=== PATIENT | female | born 1940 | race Caucasian/White ===

== ENCOUNTER → 2018-05-04 09:30 | Outpatient (CLI) | payer MEDICARE, SELFPAY | PROVIDERS: PCP Family Medicine; Visit Provider Orthopaedic Surgery | DX: M75.82 Other shoulder lesions, left shoulder (principal); M17.0 Bilateral primary osteoarthritis of knee | CPT/HCPCS: 20610; 99213; J1040; J7325 ==

== ENCOUNTER 2018-05-14 03:24 | Outpatient (CLI) | payer MEDICARE, SELFPAY ==
[2018-05-14 13:23] LABS: INR 2.7 (1.0-3.5); Prothrombin Time 25.3 sec (9.3-10.8)
== END 2018-05-14 03:25 ==
PROVIDERS: PCP Family Medicine; Visit Provider Family Medicine
DX: I48.0 Paroxysmal atrial fibrillation (principal); Z79.01 Long term (current) use of anticoagulants
CPT/HCPCS: 36415; 85610

== ENCOUNTER 2018-05-28 01:40 | Outpatient (CLI) | payer MEDICARE, SELFPAY | END 2018-05-28 02:00 | PROVIDERS: PCP Family Medicine; Visit Provider Family Medicine | DX: I48.0 Paroxysmal atrial fibrillation (principal); Z79.01 Long term (current) use of anticoagulants | CPT/HCPCS: 36415; 85610 ==

== ENCOUNTER 2018-05-28 13:36 | Outpatient (CLI) | payer MEDICARE, SELFPAY ==
[2018-05-28 16:14] LABS: INR 2.1 (1.0-3.5); Prothrombin Time 20.1 sec (9.3-10.8)
== END 2018-05-28 13:56 ==
PROVIDERS: PCP Family Medicine; Visit Provider Family Medicine
DX: I48.0 Paroxysmal atrial fibrillation (principal); Z79.01 Long term (current) use of anticoagulants
CPT/HCPCS: 36415; 85610

== ENCOUNTER 2018-06-11 01:04 | Outpatient (CLI) | payer MEDICARE, SELFPAY | END 2018-06-11 01:24 | PROVIDERS: PCP Family Medicine; Visit Provider Family Medicine | DX: I48.0 Paroxysmal atrial fibrillation (principal); Z79.01 Long term (current) use of anticoagulants | CPT/HCPCS: 36415; 85610 ==

== ENCOUNTER → 2018-06-21 13:44 | Outpatient (BNVA) | payer MEDICARE, SELFPAY | PROVIDERS: PCP Family Medicine; Referring Provider Family Medicine; Visit Provider Surgery | DX: K62.5 Hemorrhage of anus and rectum (principal) | CPT/HCPCS: 99213 ==

== ENCOUNTER 2018-06-24 01:07 | Outpatient (CLI) | payer MEDICARE, SELFPAY ==
--- NOTE | 2018-06-24 09:56 | DI.RAD_ITS ---
SYMPTOMS/DIAGNOSIS: LOW BACK PAIN, M54.5 LUMBAR SPINE: Comparison is made with August,. Exam is limited by the patient's body habitus. No compression fractures are seen. Degenerative disc changes are noted, greatest at L4-5 and L5-S1. The L5-S1 disc space is not well profiled. There is a suggestion of increased disc space narrowing at this level when compared with the previous exam. Facet degenerative changes are seen at the lower lumbar levels. No spondylolysis or spondylolisthesis is seen. There is calcification in the abdominal aorta. IMPRESSION: Degenerative changes, greatest at L4-5 and L5-S1.
== END 2018-06-24 01:27 ==
PROVIDERS: PCP Family Medicine; Visit Provider Family Medicine
DX: M54.5 Low back pain (principal); M51.37 Other intervertebral disc degeneration, lumbosacral region
CPT/HCPCS: 72110

== ENCOUNTER 2018-06-25 01:50 | Outpatient (CLI) | payer MEDICARE, SELFPAY ==
[2018-06-25 11:31] LABS: Prothrombin Time 18.9 sec (9.3-10.8)
== END 2018-06-25 02:10 ==
PROVIDERS: PCP Family Medicine; Visit Provider Family Medicine
DX: I48.0 Paroxysmal atrial fibrillation (principal); Z79.01 Long term (current) use of anticoagulants
CPT/HCPCS: 36415; 85610

== ENCOUNTER 2018-07-09 01:40 | Outpatient (CLI) | payer MEDICARE, SELFPAY ==
[2018-07-09 12:52] LABS: INR 2.3 (1.0-3.5); Prothrombin Time 21.8 sec (9.3-10.8)
== END 2018-07-09 02:00 ==
PROVIDERS: PCP Family Medicine; Visit Provider Family Medicine
DX: I48.0 Paroxysmal atrial fibrillation (principal); Z79.01 Long term (current) use of anticoagulants
CPT/HCPCS: 36415; 85610

== ENCOUNTER 2018-07-30 01:55 | Outpatient (CLI) | payer MEDICARE, SELFPAY ==
[2018-07-30 11:11] LABS: INR 2.2 (1.0-3.5); Prothrombin Time 20.6 sec (9.3-10.8)
== END 2018-07-30 02:15 ==
PROVIDERS: PCP Family Medicine; Visit Provider Family Medicine
DX: I48.0 Paroxysmal atrial fibrillation (principal); Z79.01 Long term (current) use of anticoagulants
CPT/HCPCS: 36415; 85610

== ENCOUNTER 2018-08-23 08:27 | Outpatient (CLI) | payer MEDICARE, SELFPAY ==
[2018-08-23 11:41] LABS: INR 1.7 (1.0-3.5)
== END 2018-08-23 08:47 ==
PROVIDERS: PCP Family Medicine; Visit Provider Family Medicine
DX: I48.0 Paroxysmal atrial fibrillation (principal); Z79.01 Long term (current) use of anticoagulants
CPT/HCPCS: 36415; 85610

== ENCOUNTER 2018-08-23 11:51 | Outpatient (REF) | payer MEDICARE, SELFPAY | END 2018-08-23 12:11 | LOC: NCHCN 11:51 | PROVIDERS: PCP Family Medicine; Visit Provider Family Medicine | DX: I48.0 Paroxysmal atrial fibrillation (principal); Z79.01 Long term (current) use of anticoagulants ==

== ENCOUNTER 2018-09-10 02:12 | Outpatient (CLI) | payer MEDICARE, SELFPAY ==
[2018-09-10 10:26] LABS: HCT 40.9 % (36.0-46.0); HGB 12.8 g/dL (12.0-15.5); Mean Corp. HGB Concentration 31.3 g/dL (32.0-36.0); Mean Corpuscular Hemoglobin 31.2 pg (27.0-33.0); Mean Corpuscular Volume 99.8 fL (80-95); Mean Platelet Volume 9.7 fL (8.0-11.0); Platelet Count 288 x1000/uL (130-400); RBC Distribution Width 14.3 % (11.7-14.6); White Blood Cell Count 5.17 k/cumm (4.4-10.8)
[2018-09-10 10:30] LABS: INR 1.7 (1.0-3.5)
[2018-09-10 11:05] LABS: Anion Gap 8.6 mmol/L (3-11); BUN 14 mg/dL (7-18); CO2 30.4 mmol/L (21.0-32.0); CREATININE 0.73 mg/dL (0.55-1.02); Calcium 9.1 mg/dL (8.5-10.1); Chloride 101 mmol/L (98-107); Glucose 101 mg/dL (70-100); Magnesium 2.1 mg/dL (1.8-2.4); NT-proBNP 943 pg/mL; Potassium 3.9 mmol/L (3.5-5.1); Sodium 140 mmol/L (136-145)
== END 2018-09-10 02:32 ==
PROVIDERS: PCP Family Medicine; Visit Provider Family Medicine
DX: I48.0 Paroxysmal atrial fibrillation (principal); R60.0 Localized edema; I10 Essential (primary) hypertension; R06.00 Dyspnea, unspecified; R19.5 Other fecal abnormalities; Z79.01 Long term (current) use of anticoagulants
CPT/HCPCS: 36415; 80048; 85027; 83735; 83880; 85610

== ENCOUNTER 2018-10-01 01:30 | Outpatient (CLI) | payer MEDICARE, SELFPAY ==
[2018-10-01 13:05] LABS: INR 1.5 (0.9-1.1); Prothrombin Time 15.5 sec (9.3-11.0)
== END 2018-10-01 01:50 ==
PROVIDERS: PCP Family Medicine; Visit Provider Family Medicine
DX: I48.0 Paroxysmal atrial fibrillation (principal); Z79.01 Long term (current) use of anticoagulants
CPT/HCPCS: 36415; 85610

== ENCOUNTER 2018-10-11 01:33 | Outpatient (CLI) | payer MEDICARE, SELFPAY ==
[2018-10-11 12:47] LABS: INR 2.3 (0.9-1.1); Prothrombin Time 22.9 sec (9.3-11.0)
== END 2018-10-11 01:53 ==
PROVIDERS: PCP Family Medicine; Visit Provider Family Medicine
DX: I48.0 Paroxysmal atrial fibrillation (principal); Z79.01 Long term (current) use of anticoagulants
CPT/HCPCS: 36415; 85610

== ENCOUNTER 2018-10-18 02:19 | Outpatient (CLI) | payer MEDICARE, SELFPAY ==
[2018-10-18 11:23] LABS: INR 3.5 (0.9-1.1); Prothrombin Time 35.3 sec (9.3-11.0)
== END 2018-10-18 02:39 ==
PROVIDERS: PCP Family Medicine; Visit Provider Family Medicine
DX: I48.0 Paroxysmal atrial fibrillation (principal); Z79.01 Long term (current) use of anticoagulants
CPT/HCPCS: 36415; 85610

== ENCOUNTER 2018-10-25 02:52 | Outpatient (CLI) | payer MEDICARE, SELFPAY ==
[2018-10-25 11:15] LABS: INR 1.3 (0.9-1.1); Prothrombin Time 13.3 sec (9.3-11.0)
== END 2018-10-25 03:12 ==
PROVIDERS: PCP Family Medicine; Visit Provider Family Medicine
DX: I48.0 Paroxysmal atrial fibrillation (principal); Z79.01 Long term (current) use of anticoagulants
CPT/HCPCS: 36415; 85610

== ENCOUNTER → 2018-11-02 10:33 | Outpatient (BNVA) | payer MEDICARE, SELFPAY | PROVIDERS: Visit Provider Orthopaedic Surgery | DX: M17.11 Unilateral primary osteoarthritis, right knee (principal); M17.12 Unilateral primary osteoarthritis, left knee; M10.9 Gout, unspecified; J44.9 Chronic obstructive pulmonary disease, unspecified; Z87.891 Personal history of nicotine dependence; I10 Essential (primary) hypertension | CPT/HCPCS: 20610; 99211; 99213; J7325 ==

== ENCOUNTER → 2018-11-12 01:38 | Outpatient (CLI) | payer MEDICARE, SELFPAY ==
[2018-11-12 11:25] LABS: INR 2.2 (0.9-1.1); Prothrombin Time 22.3 sec (9.3-11.0)
== END ==
PROVIDERS: PCP Family Medicine; Visit Provider Family Medicine
DX: I48.0 Paroxysmal atrial fibrillation (principal); Z79.01 Long term (current) use of anticoagulants
CPT/HCPCS: 36415; 85610

== ENCOUNTER 2018-11-19 16:34 | Outpatient (CLI) | payer MEDICARE, SELFPAY ==
[2018-11-19 12:21] LABS: INR 2.7 (0.9-1.1); Prothrombin Time 26.8 sec (9.3-11.0)
== END 2018-11-19 16:54 ==
PROVIDERS: PCP Family Medicine; Visit Provider Family Medicine
DX: I40.8 Other acute myocarditis (principal); Z79.01 Long term (current) use of anticoagulants
CPT/HCPCS: 36415; 85610

== ENCOUNTER 2018-12-03 01:38 | Outpatient (CLI) | payer MEDICARE, SELFPAY ==
[2018-12-03 11:13] LABS: INR 1.8 (0.9-1.1); Prothrombin Time 18.4 sec (9.3-11.0)
== END 2018-12-03 01:58 ==
PROVIDERS: PCP Family Medicine; Visit Provider Family Medicine
DX: I48.0 Paroxysmal atrial fibrillation (principal); Z79.01 Long term (current) use of anticoagulants
CPT/HCPCS: 36415; 85610

== ENCOUNTER 2018-12-17 02:54 | Outpatient (CLI) | payer MEDICARE, SELFPAY ==
[2018-12-17 13:10] LABS: INR 1.8 (0.9-1.1); Prothrombin Time 18.3 sec (9.3-11.0)
== END 2018-12-17 03:14 ==
PROVIDERS: PCP Family Medicine; Visit Provider Family Medicine
DX: I48.0 Paroxysmal atrial fibrillation (principal); Z79.01 Long term (current) use of anticoagulants
CPT/HCPCS: 36415; 85610

== ENCOUNTER 2018-12-31 01:22 | Outpatient (CLI) | payer MEDICARE, SELFPAY ==
[2018-12-31 10:39] LABS: INR 2.1 (0.9-1.1); Prothrombin Time 20.7 sec (9.3-11.0)
== END 2018-12-31 01:42 ==
PROVIDERS: PCP Family Medicine; Visit Provider Family Medicine
DX: I48.0 Paroxysmal atrial fibrillation (principal); Z79.01 Long term (current) use of anticoagulants
CPT/HCPCS: 36415; 85610

== ENCOUNTER 2019-01-21 04:13 | Outpatient (CLI) | payer MEDICARE, SELFPAY ==
[2019-01-21 11:36] LABS: INR 1.8 (0.9-1.1); Prothrombin Time 18.5 sec (9.3-11.0)
== END 2019-01-21 04:33 ==
PROVIDERS: PCP Family Medicine; Visit Provider Family Medicine
DX: I48.0 Paroxysmal atrial fibrillation (principal); Z79.01 Long term (current) use of anticoagulants
CPT/HCPCS: 36415; 85610

== ENCOUNTER 2019-02-24 02:12 | Outpatient (CLI) | payer MEDICARE, SELFPAY ==
[2019-02-24 11:15] LABS: INR 1.9 (0.9-1.1); Prothrombin Time 19.2 sec (9.3-11.0)
== END 2019-02-24 02:32 ==
PROVIDERS: PCP Family Medicine; Visit Provider Family Medicine
DX: I48.0 Paroxysmal atrial fibrillation (principal); Z79.01 Long term (current) use of anticoagulants
CPT/HCPCS: 36415; 85610

== ENCOUNTER 2019-03-02 01:57 | Emergency (ER) | payer MEDICARE, SELFPAY ==
[2019-03-02 02:01] VITALS: BP 135/70; PULSE 91; RESP 20; TEMP 36.5; O2SAT 94
[2019-03-02] MEDS: predniSONE 20 MG TAB 60 MG PO (02:14)
--- NOTE | 2019-03-02 02:26 | ED.GENADUL_ITS ---
Discharge Plan Disposition Patient Disposition: HOME Condition: Stable Discharge Details Chief Complaint: Orthopedic Clinical Impression: Osteoarthritis of right knee Primary Care Provider: Ginny Scherer V ED Provider: Willem Hawley Home Meds and New Rx's Prescriptions: New prednisone 20 mg tablet 60 mg PO DAILY 5 Days Qty: 15 RF: 0 Continued methylprednisolone [Medrol (Marko)] 4 mg tablets,dose pack See Rx Instructions PO PER PKG DIR Qty: 21 RF: 0 albuterol sulfate 0.63 MG/3 ML solution for nebulization 0.63 mg Inhalation QID RF: 0 levothyroxine [Levoxyl] 100 MCG tablet 100 mcg PO DAILY RF: 0 budesonide 0.25 MG/2 ML suspension for nebulization 0.25 mg Inhalation RF: 0 Perforomist 20 MCG/2 ML solution for nebulization 20 mcg Inhalation BID RF: 0 Oxygen EACH 2 l Inhalation PRN PRNRF: 0 latanoprost 2.5 ML drops 1 drp Ophthalmic HS RF: 0 Advair Diskus 1 EACH blister with device 1 puff Inhalation BID RF: 0 diltiazem HCl 180 MG capsule,extended release 24 hr 180 mg PO DAILY RF: 0 warfarin 2.5 MG tablet 2.5 mg PO DAILY RF: 0 citalopram [Celexa] 20 MG tablet 20 mg PO DAILY RF: 0 ranitidine HCl 150 MG capsule 150 mg PO DAILY RF: 0 furosemide [Lasix] 20 MG tablet 20 mg PO DAILY RF: 0 lidocaine 5% oint 1 Topical QID RF: 0 nystatin (bulk) 1 EACH powder 1 ea Miscellaneous DAILY 30 Days Qty: 1 RF: 1 Trelegy Ellipta 100-62.5-25 mcg Blister With Device 1 inh INHALATION DAILY RF: 0 Discharge Instructions Instructions: Osteoarthritis (ED) Additional Instructions: follow up with your orthopedist within 1-2 weeks or your primary care provider if you are unable to see your orthopedist if you develop high fevers or redness that is spreading return to the emergency department Medical Decision Making 78 yo female with hx of osteoarthritis of both knees, reported hx of gout, who comes in with right knee pain that started last evening. She denies any known trauma, falls, fevers, redness. She has pain throughout the right knee with no swelling, no redness or warmth. She has full rom though with pain, intact distal sensation. I suspect her pain is due to Oa, less likely gout and given no redness or swelling or fevers doubt septic joint at this time. will xray to eval for possible pathological fx xray negative for acute pathology, remains with stable exam. Will d/c with short course of prednisone and return precautions given, advised f/u with her orthopedist/pcp Differential Diagnosis OA, gout, fx Medical Records Medical records reviewed: Yes I reviewed the patient's medical records. Imaging Data Radiologic Study: Attestation: I personally reviewed and interpreted this imaging study as follows: Imaging: X-Ray Radiologist's impression: no acute findings, degenerative changes HPI General Mode of arrival: EMS . Date/Time Provider Initiated Documentation: 03/02/19 02:06 . Limitations to Documentation: no limitations . Information obtained by: patient . History of Present Illness 78 year old F presents to the emergency department with the chief complaint of right knee pain, described as moderate, Quality is described as aching, and is localized to the right and lower extremity. Patient reports no radiation. Patient started experiencing this hour(s) (7) and it has been constant. No relieving factors improve symptom(s), No exacerbating factors reported . Patient did receive the following treatments prior to arrival, none Related Data Home Medications Medication Instructions Recorded Confirmed Oxygen 2 l INHALATION PRN PRN 07/11/13 11/02/18 Perforomist 20 mcg INHALATION BID ml NS 07/11/13 11/02/18 albuterol sulfate 0.63 mg INHALATION QID NS 07/11/13 11/02/18 budesonide 0.25 mg INHALATION NS 07/11/13 11/02/18 levothyroxine [Levoxyl] 100 mcg PO DAILY tab-cap NS 07/11/13 11/02/18 Advair Diskus 1 puff INHALATION BID disk 01/19/18 11/02/18 Lidocaine 5% Oint 1 TOPICAL QID 01/19/18 11/02/18 citalopram [Celexa] 20 mg PO DAILY tab-cap 01/19/18 11/02/18 diltiazem HCl 180 mg PO DAILY 01/19/18 11/02/18 furosemide [Lasix] 20 mg PO DAILY tab-cap 01/19/18 11/02/18 latanoprost 1 drp OPHTHALMIC HS drp 01/19/18 11/02/18 ranitidine HCl 150 mg PO DAILY tab-cap 01/19/18 11/02/18 warfarin 2.5 mg PO DAILY tab-cap 01/19/18 03/02/19 nystatin (bulk) 1 ea MISCELLANEOUS DAILY 30 Days 02/05/18 11/02/18 #1 bottle methylprednisolone 4 mg tablets in See Rx Instructions PO PER PKG DIR 11/02/18 11/02/18 a dose pack #21 dose pk Trelegy Ellipta 1 inh INHALATION DAILY 03/02/19 03/02/19 prednisone 60 mg PO DAILY 5 Days #15 tab 03/02/19 Previous Rx's Medication Instructions Recorded nystatin (bulk) 1 ea MISCELLANEOUS DAILY 30 Days 02/05/18 #1 bottle methylprednisolone 4 mg tablets in See Rx Instructions PO PER PKG DIR 11/02/18 a dose pack #21 dose pk prednisone 60 mg PO DAILY 5 Days #15 tab 03/02/19 Allergies Allergy/AdvReac Type Severity Reaction Status Date / Time adhesive Allergy Severe skin rash, Verified 03/02/19 02:05 blisters lisinopril Allergy Intermediate Verified 03/02/19 02:05 amoxicillin [Amoxicillin] Allergy Mild TINGLING Verified 03/02/19 02:05 oxybutynin Allergy Unknown PT CAN'T Verified 03/02/19 02:05 REMEMBER General Stated Complaint: Orthopedic CECILIA: 4 Review of Systems Review of Systems All systems reviewed & are unremarkable except as noted in HPI and below Constitutional Denies chills, Denies fever(s) and Denies weakness Cardiovascular Denies chest pain and Denies dyspnea Respiratory Denies cough and Denies dyspnea Gastrointestinal Denies abdominal pain, Denies nausea and Denies vomiting Neurologic Denies weakness PFSH Medical History COPD (chronic obstructive pulmonary disease) (Chronic) Depression (Chronic) H/O adenomatous polyp of colon (Chronic) Hypothyroidism (Chronic) Morbid obesity (Chronic) Osteoarthritis (Chronic) Edema Hypertension Surgical History H/O colonoscopy (Resolved) Abdominal hysterectomy Family History Other Heart disease Social History Smoking/Tobacco Use Status: Former Tobacco Use Alcohol Intake: former Drug use: Never Substance use type: does not use Exam Const General: no acute distress Orientation: alert HENMT Head: normal to inspection Ears: external ears normal General nose exam: external nose normal Mouth: moist mucous membranes Eyes General: appearance normal, both eyes and all related structures Neck Neck: normal visual inspection Resp Effort & Inspection: normal respiratory effort and able to speak in complete sentences Cardio Rate: regular rate Skin General skin exam: no rashes or lesions noted Neuro General: alert and oriented x3 Extrem General: normal capillary refill Psych Mental Status: mental status grossly normal Course Vital Signs Temperature 36.5 C 03/02/19 02:01 Pulse 91 H 03/02/19 02:01 Respiratory Rate 20 03/02/19 02:01 Blood Pressure 135/70 03/02/19 02:01 Pulse Oximetry 94 L 03/02/19 02:01 Temperature 36.5 C 03/02/19 02:01 Temperature Source Skin 03/02/19 02:01 Pulse 91 H 03/02/19 02:01 Respiratory Rate 20 03/02/19 02:01 Blood Pressure 135/70 03/02/19 02:01 Blood Pressure Position Sitting 03/02/19 02:01 Pulse Oximetry 94 L 03/02/19 02:01 Oxygen Delivery Method Nasal Cannula 03/02/19 02:01 Oxygen Flow Rate 2 03/02/19 02:01 Pain Level 9 03/02/19 02:01 Comment 03/02/19 02:01
--- NOTE | 2019-03-02 02:35 | DI.RAD_ITS ---
SYMPTOM/DIAGNOSIS: PAIN, NONTRAUMATIC RIGHT KNEE: Severe DJD is demonstrated with joint space narrowing, periarticular hypertrophic spurring and chondrocalcinosis. No acute abnormality is identified. SUMMARY: Severe DJD right knee.
--- NOTE | 2019-03-02 02:57 | DI.VRAD_ITS ---
EXAM: XR Right Knee EXAM DATE/TIME: 03/02/2019 2:17 AM CLINICAL HISTORY: 78 years old, female; Right; Patient HX: No trauma, knee pain and difficulty bending, unable to bear weigh TECHNIQUE: Imaging protocol: XR Right knee. Views: 3 views. COMPARISON: CR RIGHT KNEE 3 VIEWS 08/21/2014 1:09 PM FINDINGS: Bones/joints: Joint space narrowing. Osteophyte formation. Large amount of chondrocalcinosis. No evidence of knee joint effusion. No evidence of acute fracture. Soft tissues: Unremarkable. IMPRESSION: Mild to moderate degenerative change. CPPD arthropathy. Dictated and Authenticated by: Jonh Muhammad MD. Ordering:ANGLE Bangura MD
[2019-03-02] MEDS: oxyCODONE 5 MG TAB PO (03:23)
== END 2019-03-02 03:20 | disposition home or self-care (01) ==
PROVIDERS: Emergency Provider Emergency Medicine; PCP Family Medicine
DX: M17.11 Unilateral primary osteoarthritis, right knee (principal); I10 Essential (primary) hypertension; J44.9 Chronic obstructive pulmonary disease, unspecified; Z87.891 Personal history of nicotine dependence
CPT/HCPCS: 73562; 99283; J7512

== ENCOUNTER 2019-03-31 02:24 | Outpatient (CLI) | payer MEDICARE, SELFPAY | END 2019-03-31 02:44 | PROVIDERS: PCP Family Medicine; Visit Provider Family Medicine | DX: R69 Illness, unspecified (principal) ==

== ENCOUNTER 2019-04-08 02:51 | Outpatient (CLI) | payer MEDICARE, SELFPAY ==
[2019-04-08 14:05] LABS: INR 2.7 (0.9-1.1); Prothrombin Time 27.4 sec (9.3-11.0)
== END 2019-04-08 03:11 ==
PROVIDERS: PCP Family Medicine; Visit Provider Family Medicine
DX: I48.0 Paroxysmal atrial fibrillation (principal); Z79.01 Long term (current) use of anticoagulants
CPT/HCPCS: 36415; 85610

== ENCOUNTER 2019-04-22 03:54 | Outpatient (CLI) | payer MEDICARE, SELFPAY ==
[2019-04-22 10:49] LABS: INR 1.7 (0.9-1.1); Prothrombin Time 16.6 sec (9.3-11.0)
== END 2019-04-22 04:14 ==
PROVIDERS: PCP Family Medicine; Visit Provider Family Medicine
DX: I48.0 Paroxysmal atrial fibrillation (principal); Z79.01 Long term (current) use of anticoagulants
CPT/HCPCS: 36415; 85610

== ENCOUNTER → 2019-05-03 10:27 | Outpatient (BNVA) | payer MEDICARE, SELFPAY | PROVIDERS: PCP Family Medicine; Referring Provider Family Medicine; Visit Provider Orthopaedic Surgery | DX: M17.11 Unilateral primary osteoarthritis, right knee (principal); M17.12 Unilateral primary osteoarthritis, left knee; J44.9 Chronic obstructive pulmonary disease, unspecified; Z87.891 Personal history of nicotine dependence; Z99.81 Dependence on supplemental oxygen; I10 Essential (primary) hypertension | CPT/HCPCS: 20610; 99211; 99213; J7325 ==

== ENCOUNTER 2019-05-09 01:59 | Outpatient (CLI) | payer MEDICARE, SELFPAY ==
[2019-05-09 11:01] LABS: INR 1.8 (0.9-1.1); Prothrombin Time 17.7 sec (9.3-11.0)
== END 2019-05-09 02:19 ==
PROVIDERS: PCP Family Medicine; Visit Provider Family Medicine
DX: I48.0 Paroxysmal atrial fibrillation (principal); Z79.01 Long term (current) use of anticoagulants
CPT/HCPCS: 36415; 85610

== ENCOUNTER 2019-05-18 19:20 | Inpatient (IN) | payer MEDICARE, SELFPAY ==
[2019-05-18] VITALS (23 sets, daily range): BP systolic 119–160; BP diastolic 72–104; PULSE 80–136; RESP 16–28; TEMP 36.7–36.8; O2SAT 89–97
--- NOTE | 2019-05-18 19:26 | W.ED.GENAD ---
Discharge Plan Disposition Patient Disposition: [facility] INPATIENT Condition: Poor Discharge Details Chief Complaint: SOB Clinical Impression: Atrial fibrillation with rapid ventricular response, COPD exacerbation, Acute on chronic clinical systolic heart failure Primary Care Provider: Ginny Scherer V ED Provider: Sidney Almanza [place] Meds and New Rx's Prescriptions: No Action methylprednisolone [Medrol (Marko)] 4 mg tablets,dose pack See Rx Instructions PO PER PKG DIR Qty: 21 RF: 0 levothyroxine [Levoxyl] 100 MCG tablet 100 mcg PO DAILY RF: 0 Perforomist 20 MCG/2 ML solution for nebulization 20 mcg Inhalation BID RF: 0 Oxygen EACH 2 l Inhalation PRN PRNRF: 0 latanoprost 2.5 ML drops 1 drp Ophthalmic HS RF: 0 fluticasone propion-salmeterol [Advair Diskus] 1 EACH blister with device 1 puff Inhalation BID RF: 0 diltiazem HCl 180 MG capsule,extended release 24 hr 180 mg PO DAILY RF: 0 warfarin 2.5 MG tablet 2.5 mg PO DAILY RF: 0 citalopram [Celexa] 20 MG tablet 20 mg PO DAILY RF: 0 ranitidine HCl 150 MG capsule 150 mg PO DAILY RF: 0 furosemide [Lasix] 20 MG tablet 20 mg PO DAILY RF: 0 nystatin (bulk) 1 EACH powder 1 ea Miscellaneous DAILY 30 Days Qty: 1 RF: 1 Trelegy Ellipta 100-62.5-25 mcg Blister With Device 1 inh INHALATION DAILY RF: 0 Medical Decision Making <Willem Hawley MD - Last Filed: 05/18/19 19:40> 78 yo female with hx of afib on coumadin, htn, copd on home o2, who comes in with worsening shortness of breath and chest pressure since this morning. She states the last 3 days she has not had her cardizem as she has not had the money and was awiting for her next social security check, and this morning noticed some shortness of breath and mild chest pressure. She called ems tnoit and they noted she was in afib with rvr with stable bp and o2 saturation. They gave her 20mg IV diltiazem and she arrives in the ED with HR of 100-100 in afib, and states her pain is much better and is speaking in full sentences. She has mild edema of both legs which is chronic. She has not had fevers but has had a cough but is unsure if it is worse from her baseline. She has clear lungs and no murmurs on my exam. I suspect her symptoms were primarily due to her afib with rvr, but will obtain roponin to evaluate for acs and given the tachycardia and chest pain/sob obtian cta to eval for pe. no tearing back pain so doubt dissection pt will be signed out to Dr. Almanza to f/u on labs, imaging and disposition Differential Diagnosis afib with rvr, pe, pna, acs ECG Data Attestation: I personally reviewed and interpreted this ECG (s) as follows: Prior ECG tracings: not available for review Interpretation: afib, rate of 107, qtc 419, no acute st t wave ischemic findings <Sidney Almanza MD - Last Filed: 05/18/19 21:12> Patient signed out to me pending labs and CT scan. For the most part she has remained rate controlled although is slowly starting to climb back up. She has received the Cardizem CD. I will rebolus with 10 mg of Cardizem IV. Laboratory studies for the most part unremarkable. White count and hemoglobin normal. INR therapeutic. Chemistries fine. Troponin negative. CTA of chest reveals no PE no pneumonia. She has severe COPD as well as evidence of interstitial edema and bilateral pleural effusions along with severe cardiomegaly. In speaking to the patient, she does not take her Lasix every day. She did take Lasix this morning. We will place a Early and give 40 of Lasix IV. Discussed with hospitalist for admission for management of A. fib, COPD, CHF. Patient agreeable with admission. Will place the patient in ICU overnight in case she requires diltiazem drip. Lab Data Lab results reviewed: Yes I reviewed the patient's lab results. HPI <Willem Hawley MD - Last Filed: 05/18/19 19:40> General Mode of arrival: EMS. Date/Time Provider Initiated Documentation: 05/18/19 19:26. Limitations to Documentation: no limitations. Information obtained by: patient. History of Present Illness 78 year old F presents to the emergency department with the chief complaint of chest pain, described as moderate, No relieving factors improve symptom(s), No exacerbating factors reported . Patient did receive the following treatments prior to arrival, none Related Data Home Medications Medication Instructions Recorded Confirmed Oxygen 2 l INHALATION PRN PRN 07/11/13 05/18/19 Perforomist 20 mcg INHALATION BID ml NS 07/11/13 05/18/19 levothyroxine [Levoxyl] 100 mcg PO DAILY tab-cap NS 07/11/13 05/18/19 citalopram [Celexa] 20 mg PO DAILY tab-cap 01/19/18 05/18/19 diltiazem HCl 180 mg PO DAILY 01/19/18 05/18/19 fluticasone propion-salmeterol 1 puff INHALATION BID disk 01/19/18 05/18/19 [Advair Diskus] furosemide [Lasix] 20 mg PO DAILY tab-cap 01/19/18 05/18/19 latanoprost 1 drp OPHTHALMIC HS drp 01/19/18 05/18/19 ranitidine HCl 150 mg PO DAILY tab-cap 01/19/18 05/18/19 warfarin 2.5 mg PO DAILY tab-cap 01/19/18 05/18/19 nystatin (bulk) 1 ea MISCELLANEOUS DAILY 30 Days 02/05/18 05/18/19 #1 bottle methylprednisolone 4 mg tablets in See Rx Instructions PO PER PKG DIR 11/02/18 05/18/19 a dose pack #21 dose pk Trelegy Ellipta 1 inh INHALATION DAILY 03/02/19 05/18/19 Previous Rx's Medication Instructions Recorded nystatin (bulk) 1 ea MISCELLANEOUS DAILY 30 Days 02/05/18 #1 bottle methylprednisolone 4 mg tablets in See Rx Instructions PO PER PKG DIR 11/02/18 a dose pack #21 dose pk Allergies Allergy/AdvReac Type Severity Reaction Status Date / Time adhesive Allergy Severe skin rash, Verified 05/18/19 20:28 blisters lisinopril Allergy Intermediate Verified 05/18/19 20:28 amoxicillin [Amoxicillin] Allergy Mild TINGLING Verified 05/18/19 20:28 oxybutynin Allergy Unknown PT CAN'T Verified 05/18/19 20:28 REMEMBER General CECILIA: 4 Review of Systems <Willem Hawley MD - Last Filed: 05/18/19 19:40> Review of Systems All systems reviewed & are unremarkable except as noted in HPI and below Constitutional Denies chills and Denies fever(s) Respiratory Denies cough Gastrointestinal Denies abdominal pain, Denies nausea and Denies vomiting Musculoskeletal Denies joint swelling Integumentary/Breasts Denies rash PFSH <Willem Hawley MD - Last Filed: 05/18/19 19:40> Medical History AF (paroxysmal atrial fibrillation) (Chronic 01/19/18) COPD (chronic obstructive pulmonary disease) (Chronic) Depression (Chronic) Edema H/O adenomatous polyp of colon (Chronic) Hypertension Hypothyroidism (Chronic) Morbid obesity (Chronic) Osteoarthritis (Chronic) Surgical History Abdominal hysterectomy H/O colonoscopy (Resolved) Family History (Updated 01/20/18 @ 10:42 by Radha Soler MD) Other Heart disease Social History Smoking/Tobacco Use Status: Former Tobacco Use Alcohol Intake: former Drug use: Never Substance use type: does not use Exam <Willem Hawley MD - Last Filed: 05/18/19 19:40> Const General: no acute distress Orientation: alert HENMT Head: normal to inspection Ears: external ears normal General nose exam: external nose normal Mouth: moist mucous membranes Eyes General: appearance normal, both eyes and all related structures Neck Neck: normal visual inspection Resp Effort & Inspection: normal respiratory effort and able to speak in complete sentences Cardio Rate: regular rate Skin General skin exam: no rashes or lesions noted Neuro General: alert and oriented x3 Extrem General: normal to inspection Psych Mental Status: mental status grossly normal Sign Out <Willem Hawley MD - Last Filed: 05/18/19 19:40> Sign Out Data: Sign Out Comment: follow up on labs, imaging and dispo Last updated by Willem Hawley MD at 05/18/19 19:51
--- NOTE | 2019-05-18 19:36 | DI.CT_ITS ---
SYMPTOM/DIAGNOSIS: SHORTNESS OF BREATH AND CHEST PAIN CT ANGIOGRAPHY CHEST: 05/18 CT angiography was performed with multi slice acquisition and multi planar and 3D reconstruction. CT angiography of the chest was performed with intravenous infusion of 100 cc Omnipaque 350. Images obtained through the upper abdomen show unremarkable appearance of visualized portions of liver, spleen, pancreas, adrenals and left kidney. There is marked cardiomegaly and there is pleural effusion with tiny right pleural effusion and small left pleural effusion. There are severe pulmonary emphysematous changes predominantly central lobular and most marked in the lung apices where there is bolus change. There is intralobular septal thickening in the lower lobes and small quantity of fluid in the interlobar fissures along with question lower lobe dependent ground glass opacities. The findings as described are consistent with mild CHF superimposed on severe COPD. Tracheobronchial tree appears intact. No pulmonary emboli seen. Question mild dilatation main pulmonary artery at 32 mm. Aorta suboptimally opacified but grossly of normal diameter. CONCLUSION: No evidence of pulmonary embolic disease. Findings consistent with CHF
[2019-05-18 19:55] LABS: Abs Immature Grans 0.02 k/cumm (0.0-0.09); Absolute Basophil Count 0.03 k/cumm (0.0-0.2); Absolute Eosinophil Count 0.12 k/cumm (0.0-0.7); Absolute Lymphocyte Count 1.15 k/cumm (1.2-3.4); Absolute Monocyte Count 0.73 k/cumm (0.11-0.7); Absolute Neutrophil Count 8.01 k/cumm (1.2-6.7); Basophils % 0.3; Eosinophils % 1.2; HCT 40.9 % (36.0-46.0); HGB 12.9 g/dL (12.0-15.5); Immature Grans % 0.2; Lymphocytes % 11.4; Mean Corp. HGB Concentration 31.5 g/dL (32.0-36.0); Mean Corpuscular Hemoglobin 31.4 pg (27.0-33.0); Mean Corpuscular Volume 99.5 fL (80-95); Mean Platelet Volume 10.3 fL (8.0-11.0); Monocytes % 7.3; Neutrophils % 79.6; Platelet Count 204 x1000/uL (130-400); RBC 4.11 m/cumm (4.00-5.20); White Blood Cell Count 10.06 k/cumm (4.4-10.8)
[2019-05-18 20:07] LABS: Lipase 69 U/L (73-393)
[2019-05-18 20:09] LABS: INR 2.3 (0.9-1.1); PTT Activated 36.7 sec (21.0-31.4); Prothrombin Time 23.4 sec (9.3-11.0)
[2019-05-18] MEDS: Omnipaque 350 MG/ML 100 ML BTL IJ (20:14)
[2019-05-18 20:15] LABS: ALT 26 U/L (14-59); AST 21 U/L (15-37); Albumin 3.1 g/dL (3.4-5.0); Alkaline Phosphatase 132 U/L (46-116); Anion Gap 6.8 mmol/L (3-11); BUN 10 mg/dL (7-18); Bilirubin, Total 0.8 mg/dL (0.2-1.0); CO2 30.2 mmol/L (21.0-32.0); Calcium 8.4 mg/dL (8.5-10.1); Chloride 102 mmol/L (98-107); Estimated GFR 53.62 (mL/min/1.73m2); Glucose 110 mg/dL (70-100); Magnesium 1.8 mg/dL (1.8-2.4); Potassium 3.9 mmol/L (3.5-5.1); Sodium 139 mmol/L (136-145); Total Protein 7.3 g/dL (6.4-8.2)
[2019-05-18] MEDS: methylPREDNISolone SUCC 125 MG VIAL IVP (20:23)
[2019-05-18 20:27] LABS: Troponin I < 0.05 ng/mL (0.00-0.06)
[2019-05-18] MEDS: dilTIAZem CD 180 MG CAPCR 360 MG PO (20:40)
--- NOTE | 2019-05-18 20:47 | DI.VRAD_ITS ---
EXAM: CT Angiography Chest With Contrast EXAM DATE/TIME: 05/18/2019 7:37 PM CLINICAL HISTORY: 78 years old, female; Cough and fever and shortness of breath and other: Chest pain; Patient HX: Copd, afib TECHNIQUE: Imaging protocol: Computed tomographic angiography of the chest with intravenous contrast. 3D rendering: MIP reconstructed images were created and reviewed. Radiation optimization: All CT scans at this facility use at least one of these dose optimization techniques: automated exposure control; mA and/or kV adjustment per patient size (includes targeted exams where dose is matched to clinical indication); or iterative reconstruction. Contrast material: [id number]; Contrast volume: 100 ml; Contrast route: IV RAC 18G; COMPARISON: CT CHEST FOR PULMONARY EMBOLUS 02/26/2016 1:24 PM FINDINGS: Pulmonary arteries: Minimal enlargement of the main pulmonary artery measuring up to 3.1 cm, as could be seen with pulmonary arterial hypertension. Normal course to the pulmonary arteries otherwise. No filling defects in the pulmonary arterial system to suggest pulmonary emboli. Aorta: The aorta demonstrates mild atherosclerotic calcification. No acute aortic pathology. Lungs: Severe and diffuse centrilobular emphysema is appreciated, most pronounced in the bilateral upper lobes. There is mild haziness throughout the lungs with subtle groundglass opacities noted in the bilateral lower lobes. There is interlobular septal thickening at the bilateral lower lobes. There is bilateral segmental bronchial wall thickening likewise appreciated. Pleural space: Small bilateral pleural effusions are present. Heart: There is severe four-chamber cardiomegaly. Mild calcification of the aortic valve. No significant calcific coronary artery disease. No pericardial thickening or effusion. Lymph nodes: Unremarkable. No enlarged lymph nodes. Bones/joints: No acute abnormality or aggressive osseous lesion. Soft tissues: Unremarkable. Other findings: The visualized intra-abdominal structures demonstrate no acute findings. IMPRESSION: 1. No pulmonary emboli. 2. Suggestion of mild airspace and interstitial pulmonary edema with associated small layering pleural effusions. Considering the patient's severe cardiomegaly, findings are most likely related to mild CHF decompensation. 3. COPD/emphysema. 4. Other incidental findings as above. Dictated and Authenticated by: Aneesh Contreras MD. Ordering:ANGLE Bangura MD
[2019-05-18] MEDS: dilTIAZem 25 MG/5 ML VIAL 10 MG IVP (20:55)
--- NOTE | 2019-05-18 21:04 | HPE_ITS ---
Date of service: 05/18/19 Time of Service: 21:04 Assessment and Plan (1) AF (paroxysmal atrial fibrillation): Current visit: No Status: Chronic control afib rate; she will most likely need diltiazem drip short term and adjustment in her home oral dose of diltiazem and possibly addition of lopressor. continue her current warfarin dosing w/ daily INR monitoring. (2) Acute on chronic diastolic heart failure: Current visit: Yes Status: Acute although she does not carry a diagnosis of CHF her last echo demonstrated LVH and mild to mod. MR suggestive of diastolic CHF. Also she is suppose to take lasix but has not taken for few days. She needs to be ruled out for ACS and once her CHF and afib are controlled she ought to have Lexiscan or dobutamine stress MPI. (3) Chest pain: Current visit: Yes Status: Acute probably a function of her dyspnea and her rapid afib. First troponin was negative and her EKG did not show acute injury or ischemia pattern. She will continue to be monitored in ICU while checking serial troponin levels and controlling her afib rate. I will check echocardiogram in the a.m. Qualifiers: Chest pain type: unspecified Qualified Code(s): R07.9 - Chest pain, unspecified (4) Essential hypertension: Current visit: No Status: Acute continue home meds. In light of her CHF she ought to be on either an ARB or ELVIN inhibitor (5) Chronic obstructive lung disease: Current visit: No Status: Acute will use xopenex prn rather than albuterol otherwise treat w/ short term iv corticosteroids and transition to PO, continue her home meds of Advair and Trelegy Ellipta Qualifiers: COPD type: unspecified COPD Qualified Code(s): J44.9 - Chronic obs tructive pulmonary disease, unspecified (6) Hypothyroidism: Current visit: No Status: Acute continue her home dose of levothyroxine and check her TSH with her a.m. labs. Qualifiers: Hypothyroidism type: acquired Qualified Code(s): E03.9 - Hypothyroidism, unspecified History of Present Illness Chief Complaint: shortness of breath Narrative: 78 yr old female w/ PMH of a fib, COPD on home oxygen, HTN who presented to the ER w/ acute dyspnea and chest pain since this morning. She has been out of her cardizem x 3 days d/t lack of funds. She called EMS tonight d/t the dyspnea and chest tightness. upon arrival she was found to be in rapid afib in the 170's and EMS gave her diltiazem 20 mg IVP. On arrival to the ER she was in afib in the 100 to 110's and her CP and dys pnea was improving and she was able to speak in full sentences. She has not had any fever or rigors but has a nonproductive cough. Workup in the ER included routine labs and EKG and a CTA of her chest. CTA did not show any PE but demonstrated mild airspace and interstitial pulmonary edema along w/ small layering pleural effusions and severe cardiomegaly and emphysema/COPD. EKG demonstrated afib at 107 bpm w/ nonspecific ST-T flattening; no ST elevation and no T wave inversion. CMP was unremarkable w/ normal renal and liver function tests and no electrolyte abnormalities. First troponin I was <0.05, no BNP was done. CBC was unremarkable not showing any anemia nor dyscrasias. Protime was therapeutic w/ INR 2.3. Treatment in the ER included solumedrol 125 mg IVP and Cardizem CD 360 mg orally and subsequently was given diltiazem 10 mg IVP when her afib rate resumed into the 130's. She was also given lasix 40 mg IVP. She is now being admitted for treatment of rapid afib, acute CHF and questionable COPD exacerbation. She is also being ruled out for ACS given her CP. However, it is believed that most of her symptoms are d/t her rapid afib causing her acute CHF exacerbation. Of note her last echocardiogram on record was from 08/14/2017 and demonstrated normal LV size and systolic function at lower end of normal w/ LVEF 50-55% but mild LVH w/out regional wall motion abnormalities. RV size and systolic function were normal. There was mild to moderate MR and mild PHTN. Review of Systems Review of Systems All systems reviewed & are unremarkable except as noted in HPI and below Eyes Reports blurry vision ENT Reports system reviewed and no additional complaints, except as docu Cardiovascular Reports chest pain at rest, Reports pedal edema, Reports irregular heart rhythm, Reports palpitations, Reports dyspnea, Reports dyspnea on exertion, Reports orthopnea and Reports paroxysmal nocturnal dyspnea Respiratory Reports change in phlegm color, Reports cough, Reports dyspnea and Reports dyspnea on exertion Gastrointestinal Reports system reviewed and no additional complaints, except as docu Genitourinary Reports post void dribbling and Reports urinary incontinence Musculoskeletal Reports system reviewed and no additional complaints, except as docu Integumentary/Breasts Reports system reviewed and no additional complaints, except as docu Neurologic Reports system reviewed and no additional complaints, except as docu Endocrine Reports system reviewed and no additional complaints, except as docu and Reports palpitations Hematologic/Lymphatic Reports system reviewed and no additional complaints, except as docu Allergic/Immunologic Reports system reviewed and no additional complaints, except as docu PFSH Medical History AF (paroxysmal atrial fibrillation) (Chronic 01/19/18) COPD (chronic obstructive pulmonary disease) (Chronic) Depression (Chronic) Edema H/O adenomatous polyp of colon (Chronic) Hypertension Hypothyroidism (Chronic) Morbid obesity (Chronic) Osteoarthritis (Chronic) Surgical History Abdominal hysterectomy H/O colonoscopy (Resolved) Family History Other Heart disease Social History Smoking/Tobacco Use Status: Former Tobacco Use Alcohol Intake: former Drug use: Never Substance use type: does not use Do you feel safe at home: Yes Meds Home Medications Medication Instructions Recorded Confirmed Type Oxygen 2 l INHALATION PRN PRN 07/11/13 05/18/19 History Perforomist 20 mcg INHALATION BID ml NS 07/11/13 05/18/19 History levothyroxine [Levoxyl] 100 mcg PO DAILY tab-cap NS 07/11/13 05/18/19 History citalopram [Celexa] 20 mg PO DAILY tab-cap 01/19/18 05/18/19 History diltiazem HCl 180 mg PO DAILY 01/19/18 05/18/19 History fluticasone propion-salmeterol 1 puff INHALATION BID disk 01/19/18 05/18/19 History [Advair Diskus] furosemide [Lasix] 20 mg PO DAILY tab-cap 01/19/18 05/18/19 History latanoprost 1 drp OPHTHALMIC HS drp 01/19/18 05/18/19 History ranitidine HCl 150 mg PO DAILY tab-cap 01/19/18 05/18/19 History warfarin 2.5 mg PO DAILY tab-cap 01/19/18 05/18/19 History nystatin (bulk) 1 ea MISCELLANEOUS DAILY 30 Days 02/05/18 05/18/19 Rx #1 bottle methylprednisolone 4 mg tablets in See Rx Instructions PO PER PKG DIR 11/02/18 05/18/19 Rx a dose pack #21 dose pk Trelegy Ellipta 1 inh INHALATION DAILY 03/02/19 05/18/19 History Allergies Allergy/AdvReac Type Severity Reaction Status Date / Time adhesive Allergy Severe skin rash, Verified 05/18/19 20:28 blisters lisinopril Allergy Intermediate Verified 05/18/19 20:28 amoxicillin [Amoxicillin] Allergy Mild TINGLING Verified 05/18/19 20:28 oxybutynin Allergy Unknown PT CAN'T Verified 05/18/19 20:28 REMEMBER Exam Const General: cooperative, comfortable and no acute distress Nutritional Appearance: obese Orientation: alert, awake and oriented x3 HENMT Head: normal to inspection, no palpable skull fracture, normocephalic and atraumatic Ears: hearing grossly normal bilaterally Eyes General: appearance normal, both eyes and all related structures Alignment and Position: alignment normal Periorbital: periorbital findings normal Eyelids: eyelids normal Conjunctivae: conjunctivae normal Sclera: sclerae normal Cornea: corneas normal Pupils: PERRL EOM: EOM intact bilaterally Neck Neck: normal visual inspection, full ROM, no lymphadenopathy, trachea midline, supple and no JVD Thyroid: thyroid normal Carotids: normal carotid upstroke Lymphatic: no lymphadenopathy noted Resp Effort & Inspection: able to speak in complete sentences Auscultation: rales bilaterally at the base and wheezes scattered wheezes Cardio Jugular venous pressure: no JVD Palpation: normal PMI Rate: tachycardic Rhythm: abnormal rhythm irregularly irregular Heart Sounds: murmur systolic early, II/ and at the apex Bruits: no abdominal aortic bruits and no carotid bruits Pulses: posterior tibial pulses present bilaterally diminished and dorsalis pedis pulses present bilaterally diminished GI Inspection: obesity Palpation: soft and no hepatosplenomegaly Percussion: normal to percussion Auscultation: normal bowel sounds Rectal Exam - female: deferred Back/Spine/Pelvis Back: no CVA tenderness Cervical Spine: normal cervical lordosis Thoracic/Lumbar Spine: thoracic and lumbar spine normal to inspection Skin General skin exam: no rashes or lesions noted, elasticity normal and turgor normal Neuro General: alert, awake, oriented x3, tone normal and moves all extremities Cranial Nerves: CN's II-XI intact bilaterally, PERRL, EOM intact bilaterally, no nystagmus, facial strength normal, tongue midline, gag reflex normal, able to rotate head bilaterally and able to elevate shoulders bilaterally Cognition: normal cognition Speech: speech normal Motor: muscle tone normal throughout, strength 5/5 throughout and no movement abnormalities noted Sensory Exam: no sensory deficits noted Plantar Reflexes: Downgoing: bilateral Extrem General: full ROM, normal capillary refill and pedal edema bilaterally (1+) Psych Appearance: grossly normal and well kempt Mental Status: mental status grossly normal Speech and Movement: speech and movement normal Mood: congruent mood Affect: normal affect Attitude: cooperative Thought Content: normal Insight: insight good Judgment: judgment good Results Imaging EKG: image reviewed Imaging Studies: EXAM: CT Angiography Chest With Contrast EXAM DATE/TIME: 05/18/2019 7:37 PM CLINICAL HISTORY: 78 years old, female; Cough and fever and shortness of breath and other: Chest pain; Patient HX: Copd, afib TECHNIQUE: Imaging protocol: Computed tomographic angiography of the chest with intravenous contrast. 3D rendering: MIP reconstructed images were created and reviewed. Radiation optimization: All CT scans at this facility use at least one of these dose optimization techniques: automated exposure control; mA and/or kV adjustment per patient size (includes targeted exams where dose is matched to clinical indication); or iterative reconstruction. Contrast material: [id number]; Contrast volume: 100 ml; Contrast route: IV RAC 18G; COMPARISON: CT CHEST FOR PULMONARY EMBOLUS 02/26/2016 1:24 PM FINDINGS: Pulmonary arteries: Minimal enlargement of the main pulmonary artery measuring up to 3.1 cm, as could be seen with pulmonary arterial hypertension. Normal course to the pulmonary arteries otherwise. No filling defects in the pulmonary arterial system to suggest pulmonary emboli. Aorta: The aorta demonstrates mild atherosclerotic calcification. No acute aortic pathology. Lungs: Severe and diffuse centrilobular emphysema is appreciated, most pronounced in the bilateral upper lobes. There is mild haziness throughout the lungs with subtle groundglass opacities noted in the bilateral lower lobes. There is interlobular septal thickening at the bilateral lower lobes. There is bilateral segmental bronchial wall thickening likewise appreciated. Pleural space: Small bilateral pleural effusions are present. Heart: There is severe four-chamber cardiomegaly. Mild calcification of the aortic valve. No significant calcific coronary artery disease. No pericardial thickening or effusion. Lymph nodes: Unremarkable. No enlarged lymph nodes. Bones/joints: No acute abnormality or aggressive osseous lesion. Soft tissues: Unremarkable. Other findings: The visualized intra-abdominal structures demonstrate no acute findings. IMPRESSION: 1. No pulmonary emboli. 2. Suggestion of mild airspace and interstitial pulmonary edema with associated small layering pleural effusions. Considering the patient's severe cardiomegaly, findings are most likely related to mild CHF decompensation. 3. COPD/emphysema. 4. Other incidental findings as above. Dictated and Authenticated by: Aneesh Contreras MD. Labs : 05/19/19 06:40 05/19/19 06:40 Laboratory Results - last 24 hr 05/18/19 05/18/19 05/18/19 19:40 19:40 19:40 WBC 10.06 RBC 4.11 Hgb 12.9 Hct 40.9 MCV 99.5 H MCH 31.4 MCHC 31.5 L RDW 15.0 H Plt Count 204 MPV 10.3 Immature Gran % 0.2 Neutrophils % 79.6 Lymphocytes % 11.4 Monocytes % 7.3 Eosinophils % 1.2 Basophils % 0.3 Absolute Neutrophils 8.01 H Absolute Lymphocytes 1.15 L Absolute Monocytes 0.73 H Absolute Eosinophils 0.12 Absolute Basophils 0.03 PT INR APTT Sodium 139 Potassium 3.9 Chloride 102 Carbon Dioxide 30.2 Anion Gap 6.8 BUN 10 Creatinine 1.00 Estimated GFR/1.73 m2 53.62 Glucose 110 H Calcium 8.4 L Magnesium 1.8 Total Bilirubin 0.8 AST 21 ALT 26 Alkaline Phosphatase 132 H Troponin I < 0.05 Total Protein 7.3 Albumin 3.1 L Lipase 69 L 05/18/19 19:40 WBC RBC Hgb Hct MCV MCH MCHC RDW Plt Count MPV Immature Gran % Neutrophils % Lymphocytes % Monocytes % Eosinophils % Basophils % Absolute Neutrophils Absolute Lymphocytes Absolute Monocytes Absolute Eosinophils Absolute Basophils PT 23.4 H INR 2.3 H APTT 36.7 H Sodium Potassium Chloride Carbon Dioxide Anion Gap BUN Creatinine Estimated GFR/1.73 m2 Glucose Calcium Magnesium Total Bilirubin AST ALT Alkaline Phosphatase Troponin I Total Protein Albumin Lipase Last Vital Signs Temp 36.8 C 05/18/19 19:22 Pulse 136 H 05/18/19 20:55 Resp 24 05/18/19 19:22 BP 137/91 H 05/18/19 20:55 Pulse Ox 92 L 05/18/19 19:22
[2019-05-18] MEDS: Furosemide 40 MG/4 ML VIAL IVP (21:23)
[2019-05-18] MEDS: Warfarin 5 MG TAB PO (23:00)
[2019-05-18] MEDS: Latanoprost 0.005% 2.5 ML BTL OP (23:15)
[2019-05-18] MEDS: dilTIAZem 125 MG in Normal Saline 100 ML IV (23:15)
[2019-05-19] VITALS (109 sets, daily range): BP systolic 89–141; BP diastolic 38–100; PULSE 52–149; RESP 13–29; TEMP 35.6–36.6; O2SAT 86–98
[2019-05-19] MEDS: Nystatin POWDER 15 GM JAR TP ×3 (02:10→20:00)
[2019-05-19] MEDS: Normal Saline Flush 10 ML SYR IVP ×3 (03:34→16:25)
[2019-05-19] MEDS: methylPREDNISolone SUCC 125 MG VIAL 60 MG IVP (03:34)
[2019-05-19 03:50] LABS: Troponin I < 0.05 ng/mL (0.00-0.06)
[2019-05-19] MEDS: Levothyroxine 100 MCG TAB PO (05:13)
[2019-05-19 07:03] LABS: Absolute Basophil Count 0.01 k/cumm (0.0-0.2); Absolute Lymphocyte Count 0.37 k/cumm (1.2-3.4); Absolute Monocyte Count 0.05 k/cumm (0.11-0.7); Absolute Neutrophil Count 6.56 k/cumm (1.2-6.7); Basophils % 0.1; HCT 40.9 % (36.0-46.0); HGB 13.1 g/dL (12.0-15.5); Lymphocytes % 5.3; Mean Corpuscular Hemoglobin 31.6 pg (27.0-33.0); Mean Corpuscular Volume 98.6 fL (80-95); Mean Platelet Volume 10.7 fL (8.0-11.0); Monocytes % 0.7; Neutrophils % 93.9; Platelet Count 221 x1000/uL (130-400); RBC 4.15 m/cumm (4.00-5.20); RBC Distribution Width 14.8 % (11.7-14.6); White Blood Cell Count 6.99 k/cumm (4.4-10.8)
[2019-05-19 07:14] LABS: Prothrombin Time 20.3 sec (9.3-11.0)
[2019-05-19 07:17] LABS: Anion Gap 8.9 mmol/L (3-11); BUN 19 mg/dL (7-18); CO2 27.1 mmol/L (21.0-32.0); CREATININE 1.03 mg/dL (0.55-1.02); Chloride 96 mmol/L (98-107); Estimated GFR 51.82 (mL/min/1.73m2); Glucose 200 mg/dL (70-100); Potassium 3.6 mmol/L (3.5-5.1); Sodium 132 mmol/L (136-145)
[2019-05-19 07:35] LABS: Calculated LDL 118 mg/dL; Cholesterol 214 mg/dL (50-200); HDL Cholesterol 80 mg/dL (40-60); TSH 1.43 uIU/mL (0.36-3.74); Triglyceride 82 mg/dL (30-150)
[2019-05-19 07:39] LABS: Troponin I < 0.05 ng/mL (0.00-0.06)
[2019-05-19 07:58] LABS: NT-proBNP 4245 pg/mL
[2019-05-19] MEDS: Potassium Chloride 20 MEQ TABCR PO (08:08)
[2019-05-19] MEDS: diazePAM 5 MG TAB PO (08:08)
[2019-05-19] MEDS: diazePAM 2 MG TAB PO (08:08)
[2019-05-19] MEDS: dilTIAZem 125 MG in Normal Saline 100 ML 15 MG IV (08:51)
[2019-05-19] MEDS: Furosemide 20 MG TAB PO (09:06)
[2019-05-19] MEDS: dilTIAZem CD 180 MG CAPCR PO ×2 (09:06→11:52)
[2019-05-19] MEDS: Citalopram 20 MG TAB PO (09:07)
--- NOTE | 2019-05-19 09:24 | PHARADMIT ---
Admission Pharmacy Clinical Review A-FIB w/RVR, Acute on chronic CHF, COPD exacerbation (was not taking meds at home due to $$) Code Status DNR/DNI Current Weight Wgt-113.2 kg Renally Cleared and Narrow Therapeutic Index Meds CrCl~38.8 mL/min Meds-OK QTc Value / Action Taken QTc-419 na BP Control, Fever BP- 108/71 Tmax-36.7C Electrolytes reviewed Na- 132 K+3.6 Mag-1.8 DVT Prophylaxis Warfarin Opiate Usage / Scheduled Bowel Regimen Ordered No Yes Plt/SCr for Heparin / Enoxaparin Plts-221 SCr-1.03 INR for Warfarin INR-2.0 H/H stable, WBC/Bands H&H- 13.1/40.9 WBC-6.99 Antibiotic appropriateness NONE Cultures and Sensitivities NONE Surgical ABX d/c within 24 hr na DM control / Insulin Dosing BG-200 Heart Failure (Check EF%) (ELVIN's, B-Block, Diuretics) Ditiazem-CD,Lasix IV to PO Switch NO Home Meds Reviewed Yes Home Meds Not Ordered Slime Sheehan, Performist Comments SYMBICORT- subs for Advair,added Spiriva to cover Trelegy
--- NOTE | 2019-05-19 10:15 | W.PM.PROGNOT ---
Date of Service Date of service: 05/19/19 Time of Service: 10:15 Assessment and Plan (1) Atrial fibrillation: Current visit: Yes Status: Chronic Rate improved and now controlled. Will initiate home Diltiazem, and attempt to wean drip. - Continue Coumadin and monitor daily INR. - Check ECHO. - Continue to monitor on telemetry. (2) Chest pain: Current visit: Yes Status: Acute Likely rate related, without evidence of acute ischemia. Ruled out with serial troponins. Qualifiers: Chest pain type: unspecified Qualified Code(s): R07.9 - Chest pain, unspecified (3) Acute on chronic diastolic heart failure: Current visit: Yes Status: Acute Likely related to uncontrolled Afib with concurrent diastolic CHF - however, will repeat ECHO to ensure lack of LV Dysfunction and significant valvulopathy as well. Continue current home regimen of diuretic therapy - patient had good UOP overnight. Monitor daily weights. (4) Essential hypertension: Current visit: No Status: Acute Continue Diltiazem. Consider addition of low dose ELVIN-I as well given concurrent history of CHF - hold off for now as blood pressure appears somewhat soft this morning. (5) Chronic obstructive lung disease: Current visit: No Status: Acute Qualifiers: COPD type: unspecified COPD Qualified Code(s): J44.9 - Chronic obstructive pulmonary disease, unspecified (6) Hypothyroidism: Current visit: No Status: Acute Continue replacement therapy. Qualifiers: Hypothyroidism type: acquired Qualified Code(s): E03.9 - Hypothyroidism, unspecified (7) DVT prophylaxis: Current visit: Yes Status: Acute Continue coumadin and monitor daily INR - currently therapeutic. On H2 severiano for GI Protection as well. Subjective Interval history since last seen: Very pleasant 78 year old woman with a prior history of Afib, admitted from [facility] Emergency Department on 05/18 with a diagnosis of Afib with RVR and acute CHF Exacerbation. Mrs. Carpenter has a past Medical History significant for Afib on AC with coumadin, COPD on home Oxygen, HTN, Diastolic CHF, Obesity, Hypothyroidism, and OA. She presented to the ED via EMS with acute onset of dyspnea and rapid heart rate. She reportedly ran out of her Cardizem 3 day prior, and due to financial concerns was unable to purchase more. Upon arrival to the ED she was noted to have a HR that was elevated, with a negative troponin, therapeutic INR, and essentially normal CBC and CMP. Despite chest pressure her ECG was interpreted as non-ischemic, and she has ruled out for ACS with undetectable serial troponins. CT of the chest was performed and suggestive of acute CHF. Her pro-BNP this morning was elevated. She was initiated on a Cardizem drip and admitted. This morning Mrs. Sher HR appears well-controlled, and she is symptomatically improved. No overnight events reported. Remains afebrile. Exam Narrative Exam Narrative: General: Patient appears comfortable, AAOX3, NAD Neck: Supple CV: Irregularly Irregular, nontachycardic, S1S2, No rubs, murmurs, or gallops. Pulmonary: Bibasilar crackles, no crackles, wheezing, or rhonchi Abdomen: + Bowel Sounds, soft, nontender, nondistended Vascular: +1 b/l lower extremity edema Psych: Normal mood and affect. Objective Objective Clinical Data: Abnormal lab results 05/18/19 05/18/19 05/18/19 Range/Units 19:40 19:40 19:40 MCV 99.5 H (80-95) fL MCHC 31.5 L (32.0-36.0) g/dL RDW 15.0 H (11.7-14.6) % Absolute Neutrophils 8.01 H (1.2-6.7) k/cumm Absolute Lymphocytes 1.15 L (1.2-3.4) k/cumm Absolute Monocytes 0.73 H (0.11-0.7) k/cumm PT (9.3-11.0) sec INR (0.9-1.1) APTT (21.0-31.4) sec Sodium (136-145) mmol/L Chloride (98-107) mmol/L BUN (7-18) mg/dL Creatinine (0.55-1.02) mg/dL Glucose 110 H (70-100) mg/dL Calcium 8.4 L (8.5-10.1) mg/dL Alkaline Phosphatase 132 H (46-116) U/L NT-Pro-B Natriuret Pep ( - 299) pg/mL Albumin 3.1 L (3.4-5.0) g/dL Total Cholesterol (50-200) mg/dL HDL Cholesterol (40-60) mg/dL Lipase 69 L (73-393) U/L 05/18/19 05/19/19 05/19/19 Range/Units 19:40 06:40 06:40 MCV (80-95) fL MCHC (32.0-36.0) g/dL RDW (11.7-14.6) % Absolute Neutrophils (1.2-6.7) k/cumm Absolute Lymphocytes (1.2-3.4) k/cumm Absolute Monocytes (0.11-0.7) k/cumm PT 23.4 H (9.3-11.0) sec INR 2.3 H (0.9-1.1) APTT 36.7 H (21.0-31.4) sec Sodium 132 L (136-145) mmol/L Chloride 96 L (98-107) mmol/L BUN 19 H D (7-18) mg/dL Creatinine 1.03 H (0.55-1.02) mg/dL Glucose 200 H D (70-100) mg/dL Calcium (8.5-10.1) mg/dL Alkaline Phosphatase (46-116) U/L NT-Pro-B Natriuret Pep 4245 H ( - 299) pg/mL Albumin (3.4-5.0) g/dL Total Cholesterol 214 H (50-200) mg/dL HDL Cholesterol 80 H (40-60) mg/dL Lipase (73-393) U/L 05/19/19 05/19/19 Range/Units 06:40 06:40 MCV 98.6 H (80-95) fL MCHC (32.0-36.0) g/dL RDW 14.8 H (11.7-14.6) % Absolute Neutrophils (1.2-6.7) k/cumm Absolute Lymphocytes 0.37 L (1.2-3.4) k/cumm Absolute Monocytes 0.05 L (0.11-0.7) k/cumm PT 20.3 H (9.3-11.0) sec INR 2.0 H (0.9-1.1) APTT (21.0-31.4) sec Sodium (136-145) mmol/L Chloride (98-107) mmol/L BUN (7-18) mg/dL Creatinine (0.55-1.02) mg/dL Glucose (70-100) mg/dL Calcium (8.5-10.1) mg/dL Alkaline Phosphatase (46-116) U/L NT-Pro-B Natriuret Pep ( - 299) pg/mL Albumin (3.4-5.0) g/dL Total Cholesterol (50-200) mg/dL HDL Cholesterol (40-60) mg/dL Lipase (73-393) U/L Vital Signs Temperature 35.6 C L 05/19/19 08:52 Temperature Source Temporal Artery Scan 05/19/19 08:52 Pulse 71 05/19/19 05:00 Pulse 85 05/19/19 05:01 Respiratory Rate 21 05/19/19 05:01 Respiratory Effort Non-Labored 05/19/19 08:52 Respiratory Depth Normal 05/19/19 08:52 Respiratory Pattern Normal 05/19/19 08:52 Blood Pressure 108/71 05/19/19 05:00 Blood Pressure Mean 78 05/19/19 05:00 Blood Pressure Position Sitting 05/18/19 19:22 Pulse Oximetry 96 05/19/19 08:52 Oxygen Delivery Method Nasal Cannula 05/19/19 08:52 Oxygen Flow Rate 2 05/19/19 08:52 Pain Level 0 05/19/19 08:52 Intake & Output 05/18/19 05/18/19 05/19/19 11:59 23:59 11:59 Intake Total 1.667 / 1.667 1294.500 / 1294.500 Output Total 1350 / 1350 200 / 200 Balance -1348.333 / -7536.980 3176.500 / 1094.500 Weight 119.3 kg 113.2 kg Intake: IV 1.667 / 1.667 136.500 / 136.500 Oral 1158 / 1158 Output: Urine 1350 / 1350 200 / 200 Other: Urine Color Pale Dark Pastora Yellow Urine Appearance Clear Clear Comment Early in place and draining Laboratory Results WBC 6.99 k/cumm (4.4-10.8) D 05/19/19 06:40 RBC 4.15 m/cumm (4.00-5.20) 05/19/19 06:40 Hgb 13.1 g/dL (12.0-15.5) 05/19/19 06:40 Hct 40.9 % (36.0-46.0) 05/19/19 06:40 MCV 98.6 fL (80-95) H 05/19/19 06:40 MCH 31.6 pg (27.0-33.0) 05/19/19 06:40 MCHC 32.0 g/dL (32.0-36.0) 05/19/19 06:40 RDW 14.8 % (11.7-14.6) H 05/19/19 06:40 Plt Count 221 x1000/uL (130-400) 05/19/19 06:40 MPV 10.7 fL (8.0-11.0) 05/19/19 06:40 Immature Gran % 0.0 05/19/19 06:40 93.9 05/19/19 06:40 5.3 05/19/19 06:40 0.7 05/19/19 06:40 0.0 05/19/19 06:40 0.1 05/19/19 06:40 Absolute Neutrophils 6.56 k/cumm (1.2-6.7) 05/19/19 06:40 Absolute Lymphocytes 0.37 k/cumm (1.2-3.4) L 05/19/19 06:40 Absolute Monocytes 0.05 k/cumm (0.11-0.7) L 05/19/19 06:40 Absolute Eosinophils 0.00 k/cumm (0.0-0.7) 05/19/19 06:40 Absolute Basophils 0.01 k/cumm (0.0-0.2) 05/19/19 06:40 PT 20.3 sec (9.3-11.0) H 05/19/19 06:40 INR 2.0 (0.9-1.1) H 05/19/19 06:40 APTT 36.7 sec (21.0-31.4) H 05/18/19 19:40 Sodium 132 mmol/L (136-145) L 05/19/19 06:40 Potassium 3.6 mmol/L (3.5-5.1) 05/19/19 06:40 Chloride 96 mmol/L (98-107) L 05/19/19 06:40 Carbon Dioxide 27.1 mmol/L (21.0-32.0) 05/19/19 06:40 8.9 mmol/L (3-11) 05/19/19 06:40 BUN 19 mg/dL (7-18) H D 05/19/19 06:40 1.03 mg/dL (0.55-1.02) H 05/19/19 06:40 51.82 (mL/min/1.73m2) 05/19/19 06:40 Glucose 200 mg/dL (70-100) H D 05/19/19 06:40 Calcium 9.0 mg/dL (8.5-10.1) 05/19/19 06:40 Magnesium 1.8 mg/dL (1.8-2.4) 05/18/19 19:40 0.8 mg/dL (0.2-1.0) 05/18/19 19:40 AST 21 U/L (15-37) 05/18/19 19:40 ALT 26 U/L (14-59) 05/18/19 19:40 132 U/L (46-116) H 05/18/19 19:40 < 0.05 ng/mL (0.00-0.06) 05/19/19 06:40 NT-Pro-B Natriuret Pep 4245 pg/mL (-299) H 05/19/19 06:40 7.3 g/dL (6.4-8.2) 05/18/19 19:40 3.1 g/dL (3.4-5.0) L 05/18/19 19:40 Triglycerides 82 mg/dL (30-150) 05/19/19 06:40 214 mg/dL (50-200) H 05/19/19 06:40 LDL Cholesterol, Calc 118 mg/dL 05/19/19 06:40 80 mg/dL (40-60) H 05/19/19 06:40 69 U/L (73-393) L 05/18/19 19:40 TSH 1.43 uIU/mL (0.36-3.74) 05/19/19 06:40
[2019-05-19] MEDS: Budesonide/Formoterol 160/4.5 6 GM 60 PUFF INH IH ×2 (10:28→20:08)
[2019-05-19] MEDS: Tiotropium Bromide-Respimat 10 PUFF INH 2 PUFF IH (10:37)
--- NOTE | 2019-05-19 12:30 | MERGE_ITS ---
*[facility]* *[facility]* [address] [place] [address] Date of study: 05/19/2019 Transthoracic Echocardiography M-mode, complete 2D, complete spectral Doppler, and color Doppler *STUDY CONCLUSIONS* Summary: 1. Left ventricle: The cavity size was normal. The estimated ejection fraction was 45%. Diffuse hypokinesis. Moderate hypokinesis of the anteroseptal and apical myocardium. The study was not technically sufficient to allow evaluation of LV diastolic dysfunction due to atrial fibrillation. 2. Mitral valve: There was mild to moderate regurgitation. 3. Left atrium: The atrium was mildly dilated. 4. Right ventricle: The cavity size was normal. Wall thickness was normal. Systolic function was normal. 5. Tricuspid valve: There was moderate regurgitation. 6. Pulmonary arteries: Pulmonary systolic pressure was in the range of 35mm Hg to 45mm Hg. 7. Inferior vena cava: The vessel was patent and dilated. The respirophasic diameter changes were blunted (less than 50%). *PATIENT PRESENTATION* Height: 162.6cm (64in ) S/D Pressure: 108 / 71 Weight: 119.3kg (262.4lb ) BSA: 2.39m^2 Test start time: 12:35 PM. Test stop time: 01:35 PM. PERFORMING Unknown PERFORMING [facility] CONSULTING Mukesh Ingram ORDERING Mukesh Ingram REFERRING Mukesh Ingram GLASS SANDER BELT Yue Coleman, (R)(ILIANA), MAGALI *PROCEDURE DATA* Procedure information: The patient was identified by two identifiers. This study was interpreted by [facility]. Pertinent images and digital data are archived for permanent storage and are available for subsequent review. Comparison was made to the study of 08/14/2017. Study status: Routine. Transthoracic echocardiography. M-mode, complete 2D, complete spectral Doppler, and color Doppler. A Transthoracic Echocardiogram was performed. Scanning was performed from the parasternal, apical, subcostal, and suprasternal notch acoustic windows. Images were obtained using an [id number] cardiac ultrasound machine. Image quality was adequate. Study completion: The patient tolerated the procedure well. History: PMH: Evaluate RV, LV, afib. Chf. *CARDIAC ANATOMY* Left ventricle: The cavity size was normal. The estimated ejection fraction was 45%. Diffuse hypokinesis. Regional wall motion abnormalities: Moderate hypokinesis of the anteroseptal and apical myocardium. The study was not technically sufficient to allow evaluation of LV diastolic dysfunction due to atrial fibrillation. Aortic valve: Trileaflet. Doppler: There was no stenosis. There was no regurgitation. VTI ratio of LVOT to aortic valve: 0.81. Valve area (VTI): 2.4cm^2. Indexed valve area (VTI): 1cm^2/m^2. Peak velocity ratio of LVOT to aortic valve: 0.77. Valve area (Vmax): 2.3cm^2. Indexed valve area (Vmax): 0.9cm^2/m^2. Mean velocity ratio of LVOT to aortic valve: 0.87. Valve area (Vmean): 2.6cm^2. Indexed valve area (Vmean): 1.1cm^2/m^2. Mean gradient (S): 4.4mm Hg. Peak gradient (S): 7.4mm Hg. Aorta: Aortic root: The aortic root was normal in size. Ascending aorta: The ascending aorta was normal in size. Mitral valve: Doppler: There was no evidence for stenosis. There was mild to moderate regurgitation. Peak gradient (D): 6.6mm Hg. Left atrium: The atrium was mildly dilated. Right ventricle: The cavity size was normal. Wall thickness was normal. Systolic function was normal. Pulmonic valve: Doppler: There was no evidence for stenosis. There was no significant regurgitation. Tricuspid valve: Doppler: There was moderate regurgitation. Pulmonary artery: Poorly visualized. Pulmonary systolic pressure was in the range of 35mm Hg to 45mm Hg. Systemic veins: Inferior vena cava: Well visualized. The vessel was patent and dilated. The respirophasic diameter changes were blunted (less than 50%). Baseline ECG: Atrial fibrillation. Measurements Left ventricle Value 08/14/2017 Reference LV ID, ED, PLAX 5.2 cm 4.7 3.5 - 6.0 LV ID, ES, PLAX 3.8 cm 3.4 2.1 - 4.0 LV PW thickness, ED, PLAX 1.3 cm 1.3 LV end-diastolic volume, 73 ml 78 1-p A2C LV ejection fraction, 1-p 47 % 51 A2C LV end-diastolic volume, 77 ml 71 1-p A4C LV ejection fraction, 1-p 58 % 55 A4C LV e', lateral 0.128 m/sec LV E/e', lateral 10 LV e', medial 0.095 m/sec LV E/e', medial 14 LV e', average 0.111 m/sec LV E/e', average 12 Ventricular septum Value 08/14/2017 Reference IVS thickness, ED, PLAX 1.2 cm 1.2 LVOT Value 08/14/2017 Reference LVOT ID, A-P 1.9 cm 2.0 LVOT area 2.9 cm^2 3.1 LVOT peak velocity, S 1.04 m/sec 1.01 LVOT mean velocity, S 0.87 m/sec LVOT VTI, S 21.2 cm 24.5 LVOT peak gradient, S 4.4 mm Hg LVOT mean gradient, S 3.2 mm Hg 2.1 Stroke volume (SV), LVOT 62 ml DP Stroke index (SV/bsa), 26 ml/m^2 LVOT DP Aortic valve Value 08/14/2017 Reference Aortic valve peak 1.4 m/sec 1.4 velocity, S Aortic valve mean 1 m/sec 0 velocity, S Aortic valve VTI, S 26.0 cm Aortic mean gradient, S 4.4 mm Hg 4.6 Aortic peak gradient, S 7.4 mm Hg VTI ratio, LVOT/AV 0.81 0.71 Aortic valve area, VTI 2.4 cm^2 2.2 Velocity ratio, peak, 0.77 0.72 LVOT/AV Aortic valve area, peak 2.3 cm^2 2.3 velocity Velocity ratio, mean, 0.87 LVOT/AV Aortic valve area, mean 2.6 cm^2 velocity Aortic valve area/bsa, 1.1 cm^2/m^2 mean velocity Aorta Value 08/14/2017 Reference Aortic root ID, ED 2.7 cm 2.7 Ascending aorta ID, A-P, S 3.0 cm 3.3 Left atrium Value 08/14/2017 Reference LA ID, A-P, ES 4.1 cm LA ID/bsa, A-P 1.7 cm/m^2 <=2.2 LA volume/bsa, ES, 1-p A4C 30 ml/m^2 25 LA volume, ES, 2-p 81 ml LA volume/bsa, ES, 2-p 34 ml/m^2 LA/aortic root ratio 1.53 1.53 Mitral valve Value 08/14/2017 Reference Mitral E-wave peak 1.29 m/sec 1.06 velocity Mitral peak gradient, D 6.6 mm Hg 4.5 Tricuspid valve Value 08/14/2017 Reference Tricuspid regurg peak 2.9 m/sec 3.1 velocity Tricuspid peak RV-RA 34.4 mm Hg 37.8 gradient Right atrium Value 08/14/2017 Reference RA area, ES, A4C (H) 22.5 cm^2 21 8.3 - 19.5 Legend: (L) and (H) stew values outside specified reference range. I have personally reviewed the images and have reviewed and edited the reported findings. Electronically signed by Willem Cordova MD 05/19/2019 14:47
--- NOTE | 2019-05-19 13:41 | INITIAL_ITS ---
Care Management Initial Assess REASON FOR HOSPITALIZATION:: AFIB W/RVR, Acute on Chronic CHF, COPD Exacerbation PAST MEDICAL HISTORY/PAST SURGICAL HISTORY:: 78 yr old female w/ PMH of afib, COPD on home oxygen, HTN who presented to the ER w/ acute dyspnea and chest pain since this morning. She has been out of her cardizem x 3 days d/t lack of funds. She called EMS tonight d/t the dyspnea and chest tightness.. AF, COPD, Depression, Edema, adenomatous polyp of colon, hypertension, hypothyroidism, morbid obesity, osteoarthritis, abdominal hysterectomy, colonoscopy PREVIOUS FUNCTIONAL STATUS/SOCIAL/FAMILY SUPPORTS:: Celeste resides in [place], [place] with her , Valentin. Her sister, Annamaria resides in [facility]. CURRENT FUNCTIONAL STATUS:: In the morning, Celeste is working with RT and then enjoying the [employer] players when CM attempts to meet with her. ESTEPHANIA Hughes reviews request for support with offsetting prescription costs as Celeste was likely admitted due to being unable to afford her medications and therefore not taking them. ADVANCE DIRECTIVES:: Provided to patient. Has patient been provided with information about the portal?: Yes Did the patient sign up for the portal?: No INSURANCE COVERAGE / FINANCIAL ISSUES:: Medicare. Financial Asst 100 CURRENT HOME/COMMUNITY SERVICES/EQUIPMENT:: FWW, Oxygen Therapy PRIMARY CARE PHYSICIAN:: Ginny Scherer POTENTIAL DISCHARGE NEEDS:: [facility] referral, [facility] notification/referral, [facility] referral, Advance Directives PATIENT/FAMILY EDUCATION NEEDS:: Review discharge instructions, community based supports. ANTICIPATED BARRIERS TO DISCHARGE:: None identified. TRANSPORTATION:: Celeste will transport home via private vehicle with her , Valentin. PLAN:: Celeste met with Radha Navarro of [facility] for an extended period of time; pl ease refer to her note for further information. CM reviewed case needs with Elizabeth (CCC at [facility]). CM will meet with Celeste to determine specific prescription needs prior to discharge. Celeste will return home when ready per MD. She will follow up with her PCP, [facility], Chronic [facility], and plan of care as prescribed. She will transport via private vehicle with family.
--- NOTE | 2019-05-19 18:28 | NUR.NOTE ---
I called the patient's primary Dr. Scherer ([phone]) to notify them of the patient's INR of 2. The patient has had some changes to her Warfarin and gets her INR checked every 2 weeks. Nursing Note:
[2019-05-19] MEDS: Latanoprost 0.005% 2.5 ML BTL OP (20:08)
[2019-05-19] MEDS: Warfarin 5 MG TAB PO (20:08)
[2019-05-19] MEDS: Pramipexole 0.25 MG TAB 0.125 MG PO (20:09)
[2019-05-20] VITALS (28 sets, daily range): BP systolic 132–149; BP diastolic 69–96; PULSE 75–126; RESP 17–29; TEMP 35.5–36.4; O2SAT 92–98
[2019-05-20] MEDS: Acetaminophen 325 MG TAB PO (00:13)
[2019-05-20] MEDS: Levothyroxine 100 MCG TAB PO (05:09)
[2019-05-20 06:46] LABS: Abs Immature Grans 0.03 k/cumm (0.0-0.09); Absolute Monocyte Count 0.82 k/cumm (0.11-0.7); Absolute Neutrophil Count 16.14 k/cumm (1.2-6.7); HCT 40.3 % (36.0-46.0); HGB 13.1 g/dL (12.0-15.5); Immature Grans % 0.2; Lymphocytes % 3.1; Mean Corp. HGB Concentration 32.5 g/dL (32.0-36.0); Mean Corpuscular Hemoglobin 31.7 pg (27.0-33.0); Mean Corpuscular Volume 97.6 fL (80-95); Mean Platelet Volume 10.5 fL (8.0-11.0); Monocytes % 4.7; Platelet Count 256 x1000/uL (130-400); RBC 4.13 m/cumm (4.00-5.20); RBC Distribution Width 14.9 % (11.7-14.6); White Blood Cell Count 17.54 k/cumm (4.4-10.8)
[2019-05-20 06:48] LABS: Absolute Lymphocyte Count 0.54 k/cumm (1.2-3.4)
[2019-05-20 06:56] LABS: INR 2.8 (0.9-1.1); Prothrombin Time 27.8 sec (9.3-11.0)
[2019-05-20 06:58] LABS: BUN 31 mg/dL (7-18); CREATININE 1.08 mg/dL (0.55-1.02); Calcium 9.1 mg/dL (8.5-10.1); Chloride 98 mmol/L (98-107); Estimated GFR 49.07 (mL/min/1.73m2); Glucose 149 mg/dL (70-100); Magnesium 2.2 mg/dL (1.8-2.4); Potassium 4.3 mmol/L (3.5-5.1); Sodium 136 mmol/L (136-145)
[2019-05-20] MEDS: Nystatin POWDER 15 GM JAR TP (07:34)
[2019-05-20] MEDS: Tiotropium Bromide-Respimat 10 PUFF INH 2 PUFF IH (07:53)
[2019-05-20] MEDS: Budesonide/Formoterol 160/4.5 6 GM 60 PUFF INH IH (07:56)
[2019-05-20] MEDS: Furosemide 20 MG TAB PO (09:15)
[2019-05-20] MEDS: Citalopram 20 MG TAB PO (09:15)
[2019-05-20] MEDS: dilTIAZem CD 180 MG CAPCR 360 MG PO (09:15)
[2019-05-20 09:46] LABS: Bilirubin Negative (Negative); Blood Large (Negative); Clarity Sl Cloudy (Clear); Glucose Negative (Negative); Ketones Negative (Negative); Leukocyte Esterase Trace (Negative); Nitrite Negative (Negative); Urobilinogen 0.2 EU/dL (Up TO 0.2); pH 5.5 (5-8)
[2019-05-20 09:59] LABS: C & S Indicated? No; RBC >50 (0-2)
--- NOTE | 2019-05-20 10:19 | W.PM.DS.N ---
Date of service: 05/20/19 Time of Service: 10:20 DS: Diagnosis Discharge Diagnosis (1) Atrial fibrillation: Status: Chronic (2) Chest pain: Status: Acute (3) Acute on chronic diastolic heart failure: Status: Acute (4) Essential hypertension: Status: Acute (5) Chronic obstructive lung disease: Status: Acute (6) Hypothyroidism: Status: Acute Discharge Plan Disposition Patient Disposition: HOME Condition: Stable Discharge Details Chief Complaint: SOB Clinical Impression: Atrial fibrillation with rapid ventricular response, COPD exacerbation, Acute on chronic clinical systolic heart failure Reason For Visit: AFIB W/ RVR, ACUTE ON CHRONIC CHF, COPD EXACERBATI Admit Date/Time: 05/18/19 21:05 Admit Provider: Michael Ingram Attending Provider: Michael Ingram Primary Care Provider: Ginny Scherer V ED Provider: Sidney Almanza [place] Hospital Course Hospital Course: Chief Complaint: Dyspnea HPI: Very pleasant 78 year old woman with a prior history of Afib, admitted from [facility] Emergency Department on 05/18 with a diagnosis of Afib with RVR and acute CHF Exacerbation. Mrs. Carpenter has a past Medical History significant for Afib on AC with coumadin, COPD on home Oxygen, HTN, Diastolic CHF, Obesity, Hypothyroidism, Overactive Bladder, and OA. She presented to the ED via EMS with acute onset of dyspnea and rapid heart rate. She reportedly ran out of her Cardizem 3 day prior, and due to financial concerns was unable to purchase more. Upon arrival to the ED she was noted to have a HR that was elevated, with a negative troponin, therapeutic INR, and essentially normal CBC and CMP. Despite chest pressure her ECG was interpreted as non-ischemic, and she ruled out for ACS with undetectable serial troponins. CT of the chest was performed and suggestive of acute CHF, and her pro-BNP was elevated. She was initiated on a Cardizem drip and admitted. By yesterday morning Mrs. Carpenter's HR appeared well-controlled, and she was symptomatically improved. She has remained off the cardizem drip with well-Controlled rates other than with activity, which she reports is her baseline. Her ECHO yesterday showed evidence of a new CHF, with LVEF 45% and moderate MR/TR. Her pulmonary exam is vastly improved. She was noted to have a leukocytosis this morning but remains afebrile. No overnight events reported. Hospital Course: (1) Atrial fibrillation: Rate improved and now controlled. Will continue home Diltiazem, suggest a Holter to determine rate control, and continue anticoagulation. (2) CHF: Evidence of CHF with an LVEF 45% that appears new since last ECHO 2017 - Diffuse hypokinesis of the anteroseptal and apical myocardium. Also with evidence of moderate MR/TR. - Continue low dose Furosemide. Current volume status vastly improved. - Given severity of COPD will continue to avoid BB - Continue Diltiazem. - Allergy noted to ELVIN-I. Will initiate low dose ARB, and recheck BMP in 3-5 days. Allergy to ELVIN-I does not appear to have been anaphylaxis. - Unsure if findings represent ischemia - important to note that under adverse conditions with a HR recorded up to 170 and in CHF the patient ruled out for ACS with serial cardiac biomarkers. Unsure of drop in EF is artists' booking representative of poor rate control, ischemia, vs. other. Will benefit from eventual stress test - will schedule as outpatient. (3) Chest pain: Likely rate related, without evidence of acute ischemia. Ruled out with serial troponins. Plan as above. (4) Essential hypertension: Continue Diltiazem with addition of low dose ARB as above given concurrent history of CHF. Blood Pressures have been appropriate to slightly hypertensive. (5) Chronic obstructive lung disease: Appears quiescent. Continue Home O2, inahaler therapy. (6) Hypothyroidism: Continue replacement therapy. (7) DVT prophylaxis: Was maintained on coumadin with therapeutic INR - Will repeat in 3 days to ensure stability. On H2 severiano for GI Protection as well. (8) Leukocytosis: WBC of 17 this morning, which is a new finding. Mrs. Carpenter's initial chest imaging at time of admission was negative for infection, and she reports improvement in her breathing with diuresis. Urinalysis checked, with 'trace' LE - blood masked microscopy field for checking for WBCs (straight cath sample) - nitrite negative. Patient reports chronic incontinence due to an overactive bladder, unchanged, and without dysuria. Highly doubt infection - leukocytosis very likely related to administration of high dose steroids at time of admission. Will repeat CBC in 3 days to ensure resolution. Home Meds and New Rx's Prescriptions: New losartan 25 mg Tablet 25 mg PO DAILY Qty: 30 RF: 0 pramipexole 0.25 mg Tablet 0.125 mg PO HS Qty: 0 RF: 0 Continued levothyroxine [Levoxyl] 100 MCG tablet 100 mcg PO DAILY RF: 0 Perforomist 20 MCG/2 ML solution for nebulization 20 mcg Inhalation BID RF: 0 Oxygen EACH 2 l Inhalation PRN PRNRF: 0 latanoprost 2.5 ML drops 1 drp Ophthalmic HS RF: 0 fluticasone propion-salmeterol [Advair Diskus] 1 EACH blister with device 1 puff Inhalation BID RF: 0 diltiazem HCl 180 MG capsule,extended release 24 hr 360 mg PO DAILY RF: 0 warfarin 2.5 MG tablet 2.5 mg PO DAILY RF: 0 citalopram [Celexa] 20 MG tablet 20 mg PO DAILY RF: 0 ranitidine HCl 150 MG capsule 150 mg PO DAILY RF: 0 furosemide [Lasix] 20 MG tablet 20 mg PO DAILY RF: 0 nystatin (bulk) 1 EACH powder 1 ea Miscellaneous DAILY 30 Days Qty: 1 RF: 1 Trelegy Ellipta 100-62.5-25 mcg Blister With Device 1 inh INHALATION DAILY RF: 0 Discontinued methylprednisolone [Medrol (Marko)] 4 mg tablets,dose pack See Rx Instructions PO PER PKG DIR Qty: 21 RF: 0 Discharge Instructions Additional Instructions: You have a follow-up appointment with Dr. Blackmon at [facility] on Thursday05/24/19 at 2:45 PM. You will also meet with their Resource and Chronic Security Assurance Specialist. Activity:: No strenuous activity Equipment/Supplies:: No Equipment Needed Diet:: Low Sodium Discharge Orders Discharge Orders: Discharge Order (Routine); Ordered 05/20/19 Ordered By: Mata Lauren Other Ambulatory Orders: Basic Metabolic Panel (Routine) Location: None Selected Ordered By: Mata Lauren Complete Blood Count w/Diff (Routine) Location: None Selected Ordered By: Mata Lauren Prothrombin Time (Routine) Location: None Selected Ordered By: Mata Lauren Holter Monitor (Outpt) (ONCE) Location: None Selected Ordered By: Mata Lauren Nuclear Medicine Stress Test (Outpt) (ONCE) Timeframe: [id number] Location: None Selected Ordered By: Mata Lauren Exam Narrative Exam Narrative: General: Patient appears comfortable, AAOX3, NAD Neck: Supple CV: Irregularly Irregular, nontachycardic, S1S2, No rubs, murmurs, or gallops. Pulmonary: Minimal bibasilar crackles - vastly improved. No wheezing or rhonchi Abdomen: + Bowel Sounds, soft, nontender, nondistended Vascular: +1 b/l lower extremity edema Psych: Normal mood and affect. DS: Data Vitals/I&O Vitals and I&O: Vital Signs Temperature 35.5 C L 05/20/19 07:35 Temperature Source Temporal Artery Scan 05/20/19 07:35 Pulse 102 H 05/20/19 07:35 Pulse 105 H 05/20/19 08:30 Respiratory Rate 28 H 05/20/19 08:00 Respiratory Effort Non-Labored 05/20/19 07:35 Respiratory Depth Normal 05/20/19 07:35 Respiratory Pattern Normal 05/20/19 07:35 Blood Pressure 149/96 H 05/20/19 07:35 Blood Pressure Mean 105 05/20/19 07:35 Blood Pressure Position Sitting 05/20/19 05:13 Pulse Oximetry 98 05/20/19 07:35 Oxygen Delivery Method Nasal Cannula 05/20/19 05:13 Oxygen Flow Rate 2 05/20/19 05:13 Pain Level 0 05/20/19 07:35 Intake & Output 05/19/19 05/19/19 05/20/19 11:59 23:59 11:59 Intake Total 1309.000 / 2059.000 750 / 2059.000 637 / 637 Output Total 200 / 925 725 / 925 950 / 950 Balance 1109.000 / 1134.000 25 / 1134.000 -313 / -313 Weight 113.2 kg 112.7 kg Intake: IV 151.000 / 161.000 10 / 161.000 Oral 1158 / 1898 740 / 1898 637 / 637 Output: Urine 200 / 925 725 / 925 950 / 950 Other: Urine Color Dark Pastora Dark Pastora Dark Pastora Urine Appearance Clear Clear Clear Comment Early in in place and patent Last emptied at 1700 per K.R. offgoing RN Catheter D/Cd by prior shift per report and patient's request. Stool Occult Blood Negative Stool Size Smear Small Stool Characteristics Soft Soft Brown Formed Brown Completed studies during hospitalization [Text1]: Exam(s) a CT:CT chest PE CTA SYMPTOM/DIAGNOSIS: SHORTNESS OF BREATH AND CHEST PAIN CT ANGIOGRAPHY CHEST: 05/18 CT angiography was performed with multi slice acquisition and multi planar and 3D reconstruction. CT angiography of the chest was performed with intravenous infusion of 100 cc Omnipaque 350. Images obtained through the upper abdomen show unremarkable appearance of visualized portions of liver, spleen, pancreas, adrenals and left kidney. There is marked cardiomegaly and there is pleural effusion with tiny right pleural effusion and small left pleural effusion. There are severe pulmonary emphysematous changes predominantly central lobular and most marked in the lung apices where there is bolus change. There is intralobular septal thickening in the lower lobes and small quantity of fluid in the interlobar fissures along with question lower lobe dependent ground glass opacities. The findings as described are consistent with mild CHF superimposed on severe COPD. Tracheobronchial tree appears intact. No pulmonary emboli seen. Question mild dilatation main pulmonary artery at 32 mm. Aorta suboptimally opacified but grossly of normal diameter. CONCLUSION: No evidence of pulmonary embolic disease. Findings consistent with CHF --------- Exam(s) a US:US echocardiogram Date of study: 05/19/2019 Transthoracic Echocardiography M-mode, complete 2D, complete spectral Doppler, and color Doppler *STUDY CONCLUSIONS* Summary: 1. Left ventricle: The cavity size was normal. The estimated ejection fraction was 45%. Diffuse hypokinesis. Moderate hypokinesis of the anteroseptal and apical myocardium. The study was not technically sufficient to allow evaluation of LV diastolic dysfunction due to atrial fibrillation. 2. Mitral valve: There was mild to moderate regurgitation. 3. Left atrium: The atrium was mildly dilated. 4. Right ventricle: The cavity size was normal. Wall thickness was normal. Systolic function was normal. 5. Tricuspid valve: There was moderate regurgitation. 6. Pulmonary arteries: Pulmonary systolic pressure was in the range of 35mm Hg to 45mm Hg. 7. Inferior vena cava: The vessel was patent and dilated. The respirophasic diameter changes were blunted (less than 50%). Labs on day of discharge: Labs from last 24 hours 05/20/19 05/20/19 05/20/19 09:27 06:13 06:13 WBC 17.54 H D RBC 4.13 Hgb 13.1 Hct 40.3 MCV 97.6 H MCH 31.7 MCHC 32.5 RDW 14.9 H Plt Count 256 MPV 10.5 Immature Gran % 0.2 Neutrophils % 92.0 Lymphocytes % 3.1 Monocytes % 4.7 Eosinophils % 0.0 Basophils % 0.0 Absolute Neutrophils 16.14 H Absolute Lymphocytes 0.54 L Absolute Monocytes 0.82 H Absolute Eosinophils 0.00 Absolute Basophils 0.00 PT INR Sodium 136 Potassium 4.3 Chloride 98 Carbon Dioxide 28.0 Anion Gap 10.0 BUN 31 H D Creatinine 1.08 H Estimated GFR/1.73 m2 49.07 Glucose 149 H Calcium 9.1 Magnesium 2.2 Urine Color Brown Urine Clarity Sl cloudy Urine pH 5.5 Ur Specific [place] 1.020 Urine Protein 100 H Urine Ketones Negative Urine Blood Large H Urine Nitrite Negative Urine Bilirubin Negative Urine Urobilinogen 0.2 Ur Leukocyte Esterase Trace H Urine RBC >50 H Urine WBC Not Applicable Ur Epithelial Cells Not Applicable Urine Crystals Not Applicable Urine Bacteria Not Applicable Urine Mucus Not Applicable Ur Culture Indicated? No Urine Glucose Negative 05/20/19 06:13 WBC RBC Hgb Hct MCV MCH MCHC RDW Plt Count MPV Immature Gran % Neutrophils % Lymphocytes % Monocytes % Eosinophils % Basophils % Absolute Neutrophils Absolute Lymphocytes Absolute Monocytes Absolute Eosinophils Absolute Basophils PT 27.8 H D INR 2.8 H D Sodium Potassium Chloride Carbon Dioxide Anion Gap BUN Creatinine Estimated GFR/1.73 m2 Glucose Calcium Magnesium Urine Color Urine Clarity Urine pH Ur Specific [place] Urine Protein Urine Ketones Urine Blood Urine Nitrite Urine Bilirubin Urine Urobilinogen Ur Leukocyte Esterase Urine RBC Urine WBC Ur Epithelial Cells Urine Crystals Urine Bacteria Urine Mucus Ur Culture Indicated? Urine Glucose PFSH Medical History AF (paroxysmal atrial fibrillation) (Chronic 01/19/18) COPD (chronic obstructive pulmonary disease) (Chronic) Depression (Chronic) Edema H/O adenomatous polyp of colon (Chronic) Hypertension Hypothyroidism (Chronic) Morbid obesity (Chronic) Osteoarthritis (Chronic) Surgical History Abdominal hysterectomy H/O colonoscopy (Resolved) Family History Other Heart disease Social History Smoking/Tobacco Use Status: Former Tobacco Use Alcohol Intake: former Drug use: Never Substance use type: does not use Do you feel safe at home: Yes
[2019-05-20] MEDS: Losartan 25 MG TAB PO (11:08)
--- NOTE | 2019-05-20 14:47 | NUR.NOTE ---
The patient came in with complications from being off of her diltiazem and lasix from lack of financial resources. The patient's phone has been turned off, her electricity if being shut off on the , her furnace broke and is too expensive for them to repair, they are using gas heaters the the microwave for warmth and cooking, the propane is out, and they have no money for even gas to get home. The patient cannot afford her medications and there has been issues with her and her losing their insurance. [facility] was contacted and came to speak with the patient yesterday. CORINA Fisher has facilitated conversation with [facility] and the patient's PCP office (Dr. Blackmon at [facility]). The water resource engineering specialist and elderly lpn care manager have agreed to assist the patient and plan to meet with her and her on Thursday at the PCPs office to discuss funding for the patient's needs. A letter was sent to the [employer] explaining that the electricity cannot be shut off as the patient is oxygen dependent. (She has also been making payments still as much as able). I talked extensively between Dr. Lauren and Citlaly Fisher CM to help get the patient's needs addressed for discharge. The patient is being prescribed medications that she cannot afford when there are less expensive options. This was relayed to the PCP as a concerns and I educated the patient and her on requesting the PCP order a different medication as able when a medication is not affordable. Needs met: the patient was sent home with a week of medication that will cover her until she can see her primary on Thursday (4 days from now). She was provided with briefs/pads as she has run out at home. They have food at home and are staying warm with the heaters for this time. She was D/Cd with financial resource for gas and getting the phone bill turned back on. The patient is wearing a holter monitor and verbalizes that she needs to bring it back in 2 days. She is scheduled for a stress test and labs that we reviewed.
--- NOTE | 2019-05-20 15:35 | PDOC.CMDIS ---
LACE Index Scoring Tool - Questions: Length of Stay (in days): 2 Acuity (Admit via E.D.?): Yes Comorbidities: Chronic Pulmonary Disease E.D. Visits: 2 - Answers: Total Score: 9 Risk of Readmission: Low Risk Care Management Discharge Reason for Hospitalization: AFIB W/RVR, Acute on Chronic CHF, COPD Exacerbation Discharge Plan: Celeste will transport home via private vehicle with her , Valentin. She will follow up with her PCP, CCC and Internet Programmer at [facility] on 05/24/19@14:45. Celeste met with Radha Navarro of [facility] regarding financial struggles in the community; please refer to her note for further information. CM reviewed case needs with Elizabeth (CCC at [facility]) to review dicharge recommendations. MD, Pharmacy and RN agreed to coordinate take home medications until she is able to meet with her PCP on Thursday. CM requested prescription oversight with Radha and reviewed costs of current meds and quantities. Mirapex ordered by PCP was too expensive for Celeste to afford as her prescription coverage has lapsed. Celeste will transport via private vehicle with her , Valentin. Patient/Family Education Needs: Review discharge instructions, discuss Ask Me Three.
== END 2019-05-20 14:00 | disposition home or self-care (01) | DRG 308 ==
LOC: ER 21:27 → ICU 21:43
PROVIDERS: Emergency Medicine; Admitting Provider Internal Medicine; Emergency Provider Emergency Medicine; PCP Family Medicine; Visit Provider Internal Medicine
DX: I48.0 Paroxysmal atrial fibrillation (principal); I50.33 Acute on chronic diastolic (congestive) heart failure; J44.1 Chronic obstructive pulmonary disease with (acute) exacerbation; I11.0 Hypertensive heart disease with heart failure; R07.9 Chest pain, unspecified; E03.9 Hypothyroidism, unspecified; Z99.81 Dependence on supplemental oxygen; N32.81 Overactive bladder; R32 Unspecified urinary incontinence; I08.1 Rheumatic disorders of both mitral and tricuspid valves
CPT/HCPCS: 36415; 71275; 80048; 80053; 80061; 83690; 93005; 93306; 94640; 96374; 96375; 99223; 99232; 99239; 99285; 81003; 81015; 83735; 83880; 84443; 84484; 85025; 85610; 85730; 93010; 93225; J1940; J2930; J3490

== ENCOUNTER 2019-05-23 11:22 | Outpatient (CLI) | payer MEDICARE, SELFPAY ==
[2019-05-23 11:52] LABS: INR 3.7 (0.9-1.1); Prothrombin Time 37.2 sec (9.3-11.0)
[2019-05-23 11:53] LABS: Abs Immature Grans 0.02 k/cumm (0.0-0.09); Absolute Basophil Count 0.02 k/cumm (0.0-0.2); Absolute Eosinophil Count 0.23 k/cumm (0.0-0.7); Absolute Lymphocyte Count 1.41 k/cumm (1.2-3.4); Absolute Monocyte Count 0.56 k/cumm (0.11-0.7); Absolute Neutrophil Count 5.09 k/cumm (1.2-6.7); Basophils % 0.3; Eosinophils % 3.1; HCT 41.4 % (36.0-46.0); HGB 12.9 g/dL (12.0-15.5); Immature Grans % 0.3; Lymphocytes % 19.2; Mean Corp. HGB Concentration 31.2 g/dL (32.0-36.0); Mean Corpuscular Hemoglobin 31.9 pg (27.0-33.0); Mean Corpuscular Volume 102.5 fL (80-95); Mean Platelet Volume 9.8 fL (8.0-11.0); Monocytes % 7.6; Neutrophils % 69.5; Platelet Count 284 x1000/uL (130-400); RBC 4.04 m/cumm (4.00-5.20); RBC Distribution Width 15.4 % (11.7-14.6); White Blood Cell Count 7.33 k/cumm (4.4-10.8)
[2019-05-23 12:46] LABS: Anion Gap 3.9 mmol/L (3-11); BUN 13 mg/dL (7-18); CO2 32.1 mmol/L (21.0-32.0); CREATININE 0.76 mg/dL (0.55-1.02); Calcium 8.2 mg/dL (8.5-10.1); Chloride 105 mmol/L (98-107); Glucose 78 mg/dL (70-100); Potassium 4.2 mmol/L (3.5-5.1); Sodium 141 mmol/L (136-145)
== END 2019-05-23 11:42 ==
PROVIDERS: PCP Family Medicine; Visit Provider Internal Medicine
DX: I48.0 Paroxysmal atrial fibrillation (principal); I50.33 Acute on chronic diastolic (congestive) heart failure; D72.829 Elevated white blood cell count, unspecified
CPT/HCPCS: 36415; 80048; 85025; 85610; 93226

== ENCOUNTER 2019-05-23 13:02 | Outpatient (CLI) | payer MEDICARE, SELFPAY ==
--- NOTE | 2019-05-24 13:01 | HOLTER_ITS ---
DATE OF DICTATION: May 24, 2019 STUDY INDICATION: Atrial fibrillation. REQUESTING PROVIDER: Not available. FINDINGS: The patient was monitored for 2 days and 2 hours. [place] fibrillation throughout. Average heart rate 83 bpm, range 62 to 130 bpm. Rare ectopy. 683 PVC's per 48 hours. No VT. No pauses greater than 3 seconds. No high-degree heart block. One patient event, which correlated with atrial fibrillation at a rate of 79 bpm. FINAL INTERPRETATION: Atrial fibrillation with overall controlled ventricular response.
== END 2019-05-23 13:22 ==
PROVIDERS: PCP Family Medicine; Visit Provider Family Medicine
DX: I48.91 Unspecified atrial fibrillation (principal)
CPT/HCPCS: 93226

== ENCOUNTER 2019-05-24 11:29 | Outpatient (CLI) | payer MEDICARE, SELFPAY | END 2019-05-24 11:49 | PROVIDERS: PCP Family Medicine; Referring Provider Family Medicine; Visit Provider Student in an Organized Health Care Education/Training Program | DX: I48.91 Unspecified atrial fibrillation (principal) | CPT/HCPCS: 93227 ==

== ENCOUNTER 2019-05-30 01:34 | Outpatient (CLI) | payer MEDICARE, SELFPAY ==
[2019-05-30 13:15] LABS: INR 1.6 (0.9-1.1); Prothrombin Time 16.2 sec (9.3-11.0)
== END 2019-05-30 01:54 ==
PROVIDERS: PCP Family Medicine; Visit Provider Family Medicine
DX: I48.0 Paroxysmal atrial fibrillation (principal); Z79.01 Long term (current) use of anticoagulants
CPT/HCPCS: 36415; 85610

== ENCOUNTER 2019-06-06 00:05 | Outpatient (CLI) | payer MEDICARE, SELFPAY ==
--- NOTE | 2019-06-06 08:15 | MERGEMPI_ITS ---
*[facility]* *[facility]* [address] [place] [address] Myocardial Perfusion Imaging - SPECT Pacheco protocol Date of study: 06/06/2019 *PATIENT PRESENTATION* Height: 162.6cm (64in) Blood Pressure: Weight: 116.8kg (257lb) BSA: 2.36m^2 Referring physician: Willem Cordova MD Ordering physician: Ginny Scherer V Impressions: - Normal perfusion by Tc99m Sestamibi Imaging. - Consider cardiology evaluation. Consider echo. While MPI is interpreted as normal (as below) LHC may still be warranted with severe cardiomyopathy in mind. Summary: 1. Myocardial perfusion imaging: Moderate size, moderate intensity predominantly transient anterior defect. Dense breast shadow on raw images; breast position appears inconsistent between rest and stress images. Defect corrects with attenuation correction. 2. The calculated left ventricular ejection fraction after stress: 32%. LV global systolic function is severely reduced. Diffuse left ventricular regional motion abnormalities. Indication: I48.0, R07.9. History: REASON FOR TESTING: PATIENT PRESENTED TO THE ER AND WAS ADMIITED TO [facility] ON 05/18/19 WITH CHIEF COMPLAINT OF SOB AND CHEST PRESSURE/TIGHTNESS. HER HEART RATE WITH EMS WAS IN THE 170'S AND RHYTHM WAS RAPID ATRIAL FIBRILLATION. HER TROPONIN LEVELS DURING THIS ADMISSION WERE 0.05 TIMES THREE. PATIENT REPORTS HAVING LEFT SIDED CHEST PAIN 1-2 TIMES PER WEEK (PAIN LASTS APPROXIMATELY 2 MINUTES) WITH ACITVITY SINCE HER RECENT ADMISSION. HER CHEST PAIN IS RELIEVED WITH REST AND ASPIRIN (81 MG) (SHE TAKES ASPIRIN WHEN SHE HAS SHARP CHEST PAIN). PATIENT DENIES CHEST PAIN UPON ARRIVAL TO TESTING TODAY. SIGNIFICANT PAST MEDICAL HISTORY: ECHOCARDIOGRAPHY OF 05/19/19--EF 45%, ATRIAL FIBRILLATION, CHRONIC DIASTOLIC HEART FAILURE, HYPOTHYROIDISM, CHRONIC DEPRESSION. SMOKING STATUS: QUIT 1994. SMOKED FOR 30 YEARS 1 PPD. EXERCISE ROUTINE: LIMITED. PMH: COPD. Risk factors: Hypertension. Obesity. Cholesterol: 214mg/dl. HDL: 80mg/dl. LDL: 118mg/dl. Triglycerides: 82mg/dl. ALLERGIES: ADHESIVE, LISINOPRIL, AMOXICILLIN, OXYBUTYNIN. MEDICATIONS: LEVOTHYROXINE 100 MCG DAILY, CITALOPRAM 20 MG DAILY, DILTIAZEM HCI 180 MG DAILY, FUROSEMIDE 20 MG DAILY, LATANOPROST OP HS, RANITIDINE HCI 150 MG DAILY, WARFARIN 2.5-5 MG DAILY, NYSTATIN DAILY, TRELEGY ELLIPTA IH DAILY, ALBUTERAL IH PRN. Imaging Technique: Protocol: Pacheco protocol. Acquisition: Gated SPECT; 1 day - rest/stress. The patient was imaged in the supine position. Attenuation correction used. Isotope administration: - Rest. Tc[99m]-sestamibi. Dose: 12.1mCi. Injection time: 08:20 AM. Injection to stress time: 00:45. - Stress. Tc[99m]-sestamibi. Dose: 37.2mCi. Injection time: 10:20 AM. 1-2 min before end of exercise Baseline ECG: ATRIAL FIBRILLATION. HR 99 BPM. Stress protocol: + +---+ + + !Stage !HR !BP (mmHg) !Comments ! + +---+ + + !Baseline supine !99 !134/78 (97) ! ! + +---+ + + !Baseline standing!140!140/80 (100)! ! + +---+ + + !1 min !130!142/90 (107)!Inject Regadenoson.! + +---+ + + !2 min !124!146/94 (111)! ! + +---+ + + !3 min !115!140/86 (104)! ! + +---+ + + !4 min !100!138/80 (99) ! ! + +---+ + + * Stress results: LEXISCAN STRESS TEST ENDED IN 9 MINUTES 55 SECONDS. NORMAL HEART RATE AND BLOOD PRESSURE RESPONSE TO LEXISCAN INJECTION. NO ECTOPY. LEFT SIDED CHEST TIGHTNESS (7/10) AND SOB AT 49 SECONDS POST LEXISCAN INJECTION. LEFT SIDED CHEST TIGHTNESS (4/10) AND SOB AT 4 MINUTES 35 SECONDS POST LEXISCAN INJECTION. LEFT SIDED CHEST TIGHTNESS (3/10) AND SOB AT 5 MINUTES 49 SECONDS POST LEXISCAN INJECTION. LEFT SIDED CHEST TIGHTNESS (2/10) 7 MINUTES 19 SECONDS POST LEXISCAN INJECTION. LEFT SIDED CHEST TIGHTNESS (1/10) 8 MINUTES 33 SECONDS POST LEXISCAN INJECTION, LEFT SIDED CHEST TIGHTNESS SUBSIDED BY 9 MINUTES POST LEXISCAN INJECTION. NO SIGNIFICANT ST SEGMENT CHANGES. The rate-pressure product for the peak heart rate and blood pressure was 46765tg Hg/min. Myocardial perfusion: Imaging information: gated. Moderate size, moderate intensity predominantly transient anterior defect. Dense breast shadow on raw images; breast position appears inconsistent between rest and stress images. Defect corrects with attenuation correction. Ventricular Function (Wall Motion): The calculated left ventricular ejection fraction after stress: 32%. LV global systolic function is severely reduced. Diffuse left ventricular regional motion abnormalities. Study data: Willem Cordova MD supervised and was readily available during the procedure. This study was interpreted by [facility]. Study status: Routine. Consent: The risks, benefits, and alternatives to the procedure were explained to the patient and informed consent was obtained. Procedure: Initial setup. A baseline ECG was recorded. Surface ECG leads and manual cuff blood pressure measurements were monitored. Heart sounds: Normal. Lung sounds: Normal. Treadmill exercise testing was performed using the Pacheco protocol. Study completion: All catheters inserted during the procedure were removed. The patient tolerated the procedure well and was discharged from the lab. Discharge: The patient left the laboratory in stable condition. Birthdate: Patient birthdate: 1940. Sex: Gender: female. Study date: Study date: 06/06/2019. Study time: 00:01 AM. Electronically signed by Willem Cordova MD 06/06/2019 18:34
[2019-06-06] MEDS: Regadenoson 0.4 MG/5 ML SYR IVP (10:15)
== END 2019-06-06 00:25 ==
PROVIDERS: PCP Family Medicine; Visit Provider Family Medicine
DX: R07.9 Chest pain, unspecified (principal); I48.0 Paroxysmal atrial fibrillation; R06.02 Shortness of breath; I10 Essential (primary) hypertension; I50.33 Acute on chronic diastolic (congestive) heart failure; E03.9 Hypothyroidism, unspecified; Z87.891 Personal history of nicotine dependence
CPT/HCPCS: 78452; 93016; 93018; 93017; J2785

== ENCOUNTER 2019-06-10 02:39 | Outpatient (CLI) | payer MEDICARE, SELFPAY ==
[2019-06-10 11:19] LABS: INR 2.6 (0.9-1.1); Prothrombin Time 25.7 sec (9.3-11.0)
== END 2019-06-10 02:59 ==
PROVIDERS: PCP Family Medicine; Visit Provider Family Medicine
DX: I48.0 Paroxysmal atrial fibrillation (principal); Z79.01 Long term (current) use of anticoagulants
CPT/HCPCS: 36415; 85610

== ENCOUNTER 2019-06-21 20:54 | Emergency (ER) | payer MEDICARE, SELFPAY ==
[2019-06-21 21:01] VITALS: BP 124/71; PULSE 69; RESP 20; TEMP 36.3; O2SAT 94
[2019-06-21 21:04] VITALS: PULSE 74; RESP 27; O2SAT 95
--- NOTE | 2019-06-21 21:08 | W.ED.GENAD ---
Discharge Plan Disposition Patient Disposition: HOME Condition: Good Discharge Details Chief Complaint: SOB Clinical Impression: Acute on chronic diastolic CHF (congestive heart failure), OAB (overactive bladder), Atrial fibrillation Primary Care Provider: Ginny Scherer V ED Provider: Sidney Almanza Barnwell Meds and New Rx's Prescriptions: New Toviaz 4 mg tablet extended release 24 hr 4 mg PO DAILY Qty: 30 RF: 0 Continued levothyroxine [Levoxyl] 100 MCG tablet 100 mcg PO DAILY RF: 0 Perforomist 20 MCG/2 ML solution for nebulization 20 mcg Inhalation BID RF: 0 Oxygen EACH 2 l Inhalation PRN PRNRF: 0 latanoprost 2.5 ML drops 1 drp Ophthalmic HS RF: 0 fluticasone propion-salmeterol [Advair Diskus] 1 EACH blister with device 1 puff Inhalation BID RF: 0 diltiazem HCl 180 MG capsule,extended release 24 hr 360 mg PO DAILY RF: 0 warfarin 2.5 MG tablet 2.5 mg PO DAILY RF: 0 citalopram [Celexa] 20 MG tablet 20 mg PO DAILY RF: 0 ranitidine HCl 150 MG capsule 150 mg PO DAILY RF: 0 furosemide [Lasix] 20 MG tablet 20 mg PO DAILY RF: 0 nystatin (bulk) 1 EACH powder 1 ea Miscellaneous DAILY 30 Days Qty: 1 RF: 1 Trelegy Ellipta 100-62.5-25 mcg Blister With Device 1 inh INHALATION DAILY RF: 0 losartan 25 mg Tablet 25 mg PO DAILY Qty: 30 RF: 0 pramipexole 0.25 mg Tablet 0.125 mg PO HS Qty: 0 RF: 0 Discharge Instructions Additional Instructions: Please take 40 mg of furosemide in the morning to begin diuresis. You should continue to take at least 20 mg every morning subsequently. We will start new medication, Toviaz, to try to help with overactive bladder. Please follow-up with primary care at the end of this week for reevaluation. Return to ED for increasing shortness of breath, increased swelling of legs, no worsening chest pain, fever, other concerns or problems. Referrals: Ginny Scherer MD [Primary Care Provider] - Medical Decision Making Patient presents with complaints of chest pressure which she feels is like her previous CHF exacerbations. She does not really feel that her cough or shortness of breath is necessarily any worse. She admits to not taking her Lasix like she is supposed to because it makes her overactive bladder worse. She has had discomfort in her chest for 4 to 5 hours now. Her EKG shows rate controlled A. fib without acute ST changes. Previously had negative serial troponins and EKGs last month. Will place IV and get laboratory studies and chest x-ray. Laboratory studies show a CBC with normal white count and hemoglobin. INR is therapeutic. Chemistries are unremarkable. Electrolytes are normal. Kidney function normal. First troponin is negative. BNP is elevated to 874 but that is much lower than her BNP on admission last month which was over 4000. Chest x-ray per preliminary radiology read suggestive of some mild CHF with cardiomegaly, central vascular congestion, mild interstitial changes. Patient reports that she feels better here. Told her that [facility] She declines. She does not wish to be constantly on the toilet or commode here. She does agree to take 40 of Lasix orally at home in the morning. She also agrees to stay for a second troponin. We have also discussed her overactive bladder. It is funny because she appears to tolerate oxybutynin transdermal but not oxybutynin orally. Unfortunately she has severe reaction to the adhesive and cannot use the transdermal. She could not afford the Myrbetriq that her PCP wanted her to try. We have discussed maybe trying Detrol. If we can get some control of her overactive bladder she will be more likely to take her Lasix. Patient's repeat EKG is unchanged. Second troponin is negative. I think the patient is safe for discharge and she will take 40 of Lasix in the morning. We will start her on Toviaz for overactive bladder. Follow-up with primary care at the end of this week for reevaluation. Return to ED for increasing shortness of breath, increasing leg edema, new or worsening chest pain, fever, other concerns or problems. Medical Records Medical records reviewed: Yes I reviewed the patient's medical records. Lab Data Lab results reviewed: Yes I reviewed the patient's lab results. ECG Data Attestation: I personally reviewed and interpreted this ECG (s) as follows: Prior ECG tracings: available for review Interpretation: Atrial fibrillation at 79. Normal axis and intervals. Nonspecific ST changes. No significant change from previous done last month other than controlled rate. Repeat EKG remains rate controlled A. fib at 77. Normal axis and intervals. No acute ST changes. HPI General Mode of arrival: ambulatory. Date/Time Provider Initiated Documentation: 06/21/19 21:07. Limitations to Documentation: no limitations. Information obtained by: patient and RN notes reviewed. HPI Narrative: Patient presents to ED with complaint of chest pressure that she reports started around 3 or 4 this afternoon. She has a chronic cough and shortness of breath which she does not really feel is any worse than usual. Maybe the breathingg is a little worse since she developed the chest discomfort. She denies fever. She denies trauma. She has been taking most of her medications but avoids taking her Lasix because it makes her urinate too frequently. She reports that her legs are much better than they usually are in terms of swelling. She denies any pain in the legs. She was admitted last month with rapid A. fib and acute on chronic congestive heart failure. Most of that was related to lack of medications for 3 days due to financial reasons. She wanted to make sure that she was not back in rapid A. fib or congestive heart failure. She ruled out with serial enzymes on that admission. She had an ECHO which showed an EF of around 45% with some valvular changes. She did not have stress testing. Related Data Home Medications Medication Instructions Recorded Confirmed Oxygen 2 l INHALATION PRN PRN 07/11/13 06/21/19 Perforomist 20 mcg INHALATION BID ml NS 07/11/13 06/21/19 levothyroxine [Levoxyl] 100 mcg PO DAILY tab-cap NS 07/11/13 06/21/19 citalopram [Celexa] 20 mg PO DAILY tab-cap 01/19/18 06/21/19 diltiazem HCl 360 mg PO DAILY 01/19/18 06/21/19 fluticasone propion-salmeterol 1 puff INHALATION BID disk 01/19/18 06/21/19 [Advair Diskus] furosemide [Lasix] 20 mg PO DAILY tab-cap 01/19/18 06/21/19 latanoprost 1 drp OPHTHALMIC HS drp 01/19/18 06/21/19 ranitidine HCl 150 mg PO DAILY tab-cap 01/19/18 06/21/19 warfarin 2.5 mg PO DAILY tab-cap 01/19/18 06/21/19 nystatin (bulk) 1 ea MISCELLANEOUS DAILY 30 Days 02/05/18 06/21/19 #1 bottle Trelegy Ellipta 1 inh INHALATION DAILY 03/02/19 06/21/19 losartan 25 mg PO DAILY #30 tab 05/20/19 06/21/19 pramipexole 0.125 mg PO HS #0 tab 05/20/19 06/21/19 fesoterodine [Toviaz] 4 mg PO DAILY #30 tab 06/22/19 Previous Rx's Medication Instructions Recorded nystatin (bulk) 1 ea MISCELLANEOUS DAILY 30 Days 02/05/18 #1 bottle losartan 25 mg PO DAILY #30 tab 05/20/19 pramipexole 0.125 mg PO HS #0 tab 05/20/19 fesoterodine [Toviaz] 4 mg PO DAILY #30 tab 06/22/19 Allergies Allergy/AdvReac Type Severity Reaction Status Date / Time adhesive Allergy Severe skin rash, Verified 06/21/19 21:04 blisters lisinopril Allergy Intermediate Verified 06/21/19 21:04 amoxicillin [Amoxicillin] Allergy Mild TINGLING Verified 06/21/19 21:04 oxybutynin Allergy Unknown PT CAN'T Verified 06/21/19 21:04 REMEMBER General Stated Complaint: SOB CECILIA: 3 Review of Systems Review of Systems Narrative: 06/27 Review of Systems completed and is negative except as stated above in HPI (Systems reviewed: Const, Eyes, ENT, Resp, CV, GI, , MSK, Skin, Neuro) REPLACED BY [facility] Medical History AF (paroxysmal atrial fibrillation) (Chronic 01/19/18) COPD (chronic obstructive pulmonary disease) (Chronic) Depression (Chronic) Edema H/O adenomatous polyp of colon (Chronic) Hypertension Hypothyroidism (Chronic) Morbid obesity (Chronic) Osteoarthritis (Chronic) Surgical History Abdominal hysterectomy H/O colonoscopy (Resolved) Social History Smoking/Tobacco Use Status: Former Tobacco Use Alcohol Intake: former Drug use: Never Substance use type: does not use Do you feel safe at home: Yes Do you feel safe in your relationship?: Yes Exam Narrative Exam Narrative: Vitals: Afebrile. Vital signs normal. Pulse oximetry 94% on 2 L nasal cannula. Const: Morbidly obese female in NAD. HEENT: NC/AT. Normal facial exam. Eyes: Normal conjunctiva and sclera. Neck: Supple. Trachea midline. Lungs: Normal respiratory effort. Lungs without wheeze or rales. A few rhonchi in bases. A little decreased at the left base. Cor: Irr/irr without murmur. Good radial pulses. GI: Soft. NT/ND. No guarding or rebound. Neuro: A+O x 3. CN grossly in tact. Good strength and no focal deficit. Ext: No C/C. 1+ LE edema noted. Skin: Warm and dry without rash/erythema. Course Vital Signs Vital signs: Vital Signs Temperature 97.3 F L 06/21/19 21:01 Pulse 69 06/21/19 21:01 Respiratory Rate 20 06/21/19 21:01 Blood Pressure 124/71 06/21/19 21:01 Pulse Oximetry 94 L 06/21/19 21:01 Temperature 97.3 F L 06/21/19 21:01 Temperature Source Skin 06/21/19 21:01 Pulse 69 06/21/19 21:01 Respiratory Rate 20 06/21/19 21:01 Blood Pressure 124/71 06/21/19 21:01 Blood Pressure Position Sitting 06/21/19 21:01 Pulse Oximetry 94 L 06/21/19 21:01 Oxygen Delivery Method Nasal Cannula 06/21/19 21:01 Oxygen Flow Rate 2 06/21/19 21:01 Pain Level 5 06/21/19 21:01
[2019-06-21 21:10] VITALS: PULSE 77; RESP 19; O2SAT 97
[2019-06-21 21:20] VITALS: PULSE 81; O2SAT 95
[2019-06-21 21:26] VITALS: RESP 20
[2019-06-21 21:51] LABS: Abs Immature Grans 0.01 k/cumm (0.0-0.09); Absolute Basophil Count 0.04 k/cumm (0.0-0.2); Absolute Eosinophil Count 0.13 k/cumm (0.0-0.7); Absolute Lymphocyte Count 1.25 k/cumm (1.2-3.4); Absolute Monocyte Count 0.74 k/cumm (0.11-0.7); Absolute Neutrophil Count 4.28 k/cumm (1.2-6.7); Basophils % 0.6; HCT 39.7 % (36.0-46.0); HGB 12.4 g/dL (12.0-15.5); Immature Grans % 0.2; Lymphocytes % 19.4; Mean Corp. HGB Concentration 31.2 g/dL (32.0-36.0); Mean Corpuscular Hemoglobin 31.8 pg (27.0-33.0); Mean Corpuscular Volume 101.8 fL (80-95); Mean Platelet Volume 10.5 fL (8.0-11.0); Monocytes % 11.5; Neutrophils % 66.3; Platelet Count 224 x1000/uL (130-400); RBC Distribution Width 14.9 % (11.7-14.6); White Blood Cell Count 6.45 k/cumm (4.4-10.8)
[2019-06-21 22:01] LABS: INR 2.4 (0.9-1.1); Prothrombin Time 23.5 sec (9.3-11.0)
[2019-06-21 22:10] LABS: ALT 14 U/L (14-59); AST 18 U/L (15-37); Albumin 2.7 g/dL (3.4-5.0); Alkaline Phosphatase 130 U/L (46-116); Anion Gap 7.9 mmol/L (3-11); BUN 14 mg/dL (7-18); Bilirubin, Total 0.4 mg/dL (0.2-1.0); CO2 29.1 mmol/L (21.0-32.0); CREATININE 0.87 mg/dL (0.55-1.02); Calcium 8.3 mg/dL (8.5-10.1); Chloride 105 mmol/L (98-107); Glucose 103 mg/dL (70-100); Magnesium 1.8 mg/dL (1.8-2.4); NT-proBNP 874 pg/mL; Sodium 142 mmol/L (136-145); Total Protein 6.6 g/dL (6.4-8.2); Troponin I < 0.05 ng/mL (0.00-0.06)
--- NOTE | 2019-06-21 22:10 | DI.RAD_ITS ---
EXAM: XR CHEST 2V PA LATERAL INDICATION: chest pain, cough, SOB. COMPARISON: LEFT SHOULDER COMPLETE from 10/18/2015 TECHNIQUE: 2D digital imaging was performed. FINDINGS: The heart is enlarged. Increased interstitial markings are identified. There is prominence of the u pper lobe vasculature. No pleural effusion is apparent. IMPRESSION: Findings would be consistent with congestive failure
--- NOTE | 2019-06-21 22:33 | DI.VRAD_ITS ---
PROCEDURE INFORMATION: Exam: XR Chest, 2 Views Exam date and time: 06/21/2019 9:31 PM Clinical history: 78 years old, female; Cough and shortness of breath; Type not specified; Patient HX: Chest pain, cough, SOB TECHNIQUE: Imaging protocol: XR of the chest Views: 2 views. COMPARISON: CR CHEST 2 VIEWS PA,LAT 10/18/2015 1:29 AM FINDINGS: Lungs: Central pulmonary vasculature appears prominent, with mildly prominent perihilar interstitial opacities, suggestive of central pulmonary vascular congestion and mild interstitial edema. No focal consolidation is seen. Pleural space: Costophrenic angles appear mildly blunted, suggestive of small effusions. There is no pneumothorax. Heart/Mediastinum: The cardiac silhouette is enlarged. Mild vascular calcifications are present in the mildly tortuous thoracic aorta. Bones/joints: Osseous degenerative changes commensurate with age noted. No acute fractures are seen. IMPRESSION: Findings suggestive of congestive heart failure, to include cardiomegaly, central pulmonary vascular congestion, mild interstitial edema and likely small effusions. Dictated and Authenticated by: Fernandez Spencer MD. Ordering:JIMBO Little MD
[2019-06-22 02:06] LABS: Troponin I < 0.05 ng/mL (0.00-0.06)
[2019-06-22 02:29] VITALS: BP 124/71; PULSE 69; RESP 20; TEMP 36.3; O2SAT 95
== END 2019-06-22 02:34 | disposition home or self-care (01) ==
PROVIDERS: Emergency Provider Emergency Medicine; PCP Family Medicine
DX: I50.33 Acute on chronic diastolic (congestive) heart failure (principal); N32.81 Overactive bladder; I48.0 Paroxysmal atrial fibrillation; Z79.01 Long term (current) use of anticoagulants; J44.9 Chronic obstructive pulmonary disease, unspecified; Z87.891 Personal history of nicotine dependence; I10 Essential (primary) hypertension; Z91.14 Patient's other noncompliance with medication regimen
CPT/HCPCS: 36415; 80053; 93005; 99285; 71046; 83735; 83880; 84484; 85025; 85610; 93010

== ENCOUNTER 2019-06-24 08:19 | Outpatient (CLI) | payer MEDICARE, SELFPAY ==
[2019-06-24 11:14] LABS: INR 2.1 (0.9-1.1); Prothrombin Time 21.1 sec (9.3-11.0)
== END 2019-06-24 08:39 ==
PROVIDERS: PCP Family Medicine; Visit Provider Family Medicine
DX: I48.0 Paroxysmal atrial fibrillation (principal); Z79.01 Long term (current) use of anticoagulants
CPT/HCPCS: 36415; 85610

== ENCOUNTER 2019-07-08 01:56 | Outpatient (CLI) | payer MEDICARE, SELFPAY ==
[2019-07-08 11:55] LABS: INR 2.3 (0.9-1.1); Prothrombin Time 22.6 sec (9.3-11.0)
[2019-07-08 12:40] LABS: Magnesium 1.9 mg/dL (1.8-2.4); Sodium 143 mmol/L (136-145)
[2019-07-08 12:41] LABS: Anion Gap 6.5 mmol/L (3-11); BUN 10 mg/dL (7-18); CO2 28.5 mmol/L (21.0-32.0); CREATININE 0.85 mg/dL (0.55-1.02); Calcium 8.5 mg/dL (8.5-10.1); Chloride 108 mmol/L (98-107); Glucose 92 mg/dL (70-100); NT-proBNP 4125 pg/mL; Potassium 4.2 mmol/L (3.5-5.1)
== END 2019-07-08 02:16 ==
PROVIDERS: PCP Family Medicine; Visit Provider Family Medicine
DX: I50.9 Heart failure, unspecified (principal); I48.0 Paroxysmal atrial fibrillation; Z79.01 Long term (current) use of anticoagulants
CPT/HCPCS: 36415; 80048; 83735; 83880; 85610

== ENCOUNTER 2019-07-29 01:53 | Outpatient (CLI) | payer OTHER, SELFPAY ==
[2019-07-29 11:41] LABS: INR 2.2 (0.9-1.1); Prothrombin Time 21.6 sec (9.3-11.0)
== END 2019-07-29 02:13 ==
PROVIDERS: PCP Family Medicine; Visit Provider Family Medicine
DX: I48.0 Paroxysmal atrial fibrillation (principal); Z79.01 Long term (current) use of anticoagulants
CPT/HCPCS: 36415; 85610

== ENCOUNTER 2019-08-06 01:39 | Inpatient (IN) | payer OTHER, SELFPAY ==
[2019-08-06] VITALS (19 sets, daily range): BP systolic 121–140; BP diastolic 65–101; PULSE 77–156; RESP 2–24; TEMP 36–36.6; O2SAT 93–98
--- NOTE | 2019-08-06 01:53 | ED.GENADUL_ITS ---
Discharge Plan Disposition Patient Disposition: [facility] INPATIENT Condition: Improving Discharge Details Clinical Impression: Acute exacerbation of CHF (congestive heart failure), Chest pain, Acute exacerbation of chronic obstructive pulmonary disease Admit Date/Time: 08/06/19 03:37 Admit Provider: Isai Boston Attending Provider: Isai Boston Primary Care Provider: Ginny Scherer V ED Provider: Desaen Huizar Discharge Data Discharge Date/Time-TO BE ENTERED AT DEPARTURE: 08/06/19 03:56 Medical Decision Making This is a pleasant 78-year-old female with a past medical history of COPD on 3 L baseline oxygen, congestive heart failure with an EF of 45% diffuse hypokinesis, and A. fib, recently transitioned to metoprolol 100 mg twice daily on Coumadin. She presents today for evaluation of cough. She has a chronic cough, however over the last week she has had significant worsening with productive sputum in conjunction with chills. She is also had associated significant chest heaviness and shortness of breath. She states that she has been compliant with her medications. She was recently admitted roughly 2-1/2 months ago for A. fib with RVR at that time. Physical exam demonstrates minimal crackles in the right lower lung dubois, trace to +1 pitting edema in the lower extremities. No abdominal tenderness. No other abnormal lung sounds. Exam is otherwise unremarkable. EKG shows no evidence of STEMI. Differential at this time includes hospital-acquired pneumonia, CHF exacerbation, atypical cardiac etiology. We will check her INR, as PE seems unlikely clinically. We will give a DuoNeb to see if this improves her subjective symptoms. We will evaluate for other acute life-threatening etiologies and reassess. 3:04 AM Patient's laboratory work-up is still returning, of right now she has no white count, lactate is normal. No left shift. Laboratory eval seems inconsistent with pneumonia. Chest x-ray shows no large consolidation. Electrolytes normal. Initial troponin normal, no evidence of ACS, proBNP elevated at 3400, while I certainly not her highest, it is definitely higher than her normal. TSH is also notably elevated at 14. Signs and symptoms are inconsistent with a myxedema coma at this time. At this time signs and symptoms are clinically consistent primarily with a CHF exacerbation, in conjunction with mild COPD exacerbation. We will add steroids, 20 of Lasix. Did ambulate her and although her oxygen saturations remained stable, she was notably short of breath with even small amount of ambulation. Did contact the hospitalist Dr. Boston and discussed the case with him. He agrees with the assessment and plan. Patient will be admitted to the floor on telemetry. I have extensively reviewed the treatment plan with the patient. I have addressed all patient concerns at this time. I have also discussed the plan with the admitting physician and they agree with the current assessment and plan and have agreed to assume responsibility for the patient. All parties demonstrate verbal understanding and agreement with our assessment and plan at this time. 3:16 AM Chest x-ray per virtual radiology has returned is read as no acute process however I do feel that there is mild congestion pulmonary edema. Bedside limited cardiac ultrasound was performed and demonstrated generalized mild hypokinesis, no evidence of significant pericardial effusion. No other significant abnormalities. EKG 1: 51 Rate 100, QTc 438, QRS 88, atrial fibrillation, no significant ST elevation or depression, no evidence of STEMI. FINDINGS: Lungs: Hyperinflation could indicate element of COPD. No acute pulmonary infiltrate. Chronic interstitial change again noted. Pleural space: Unremarkable. No pleural effusion. No pneumothorax. Heart/Mediastinum: Stable borderline cardiomegaly. Bones/joints: Unremarkable. IMPRESSION: No acute finding. Thank you for allowing us to participate in the care of your patient. Dictated and Authenticated by: Willem Brown MD 08/06/2019 3:14 AM Eastern Time ([place] & [place]) Summary: 1. Left ventricle: The cavity size was normal. The estimated ejection fraction was 45%. Diffuse hypokinesis. Moderate hypokinesis of the anteroseptal and apical myocardium. The study was not technically sufficient to allow evaluation of LV diastolic dysfunction due to atrial fibrillation. 2. Mitral valve: There was mild to moderate regurgitation. 3. Left atrium: The atrium was mildly dilated. 4. Right ventricle: The cavity size was normal. Wall thickness was normal. Systolic function was normal. 5. Tricuspid valve: There was moderate regurgitation. 6. Pulmonary arteries: Pulmonary systolic pressure was in the range of 35mm Hg to 45mm Hg. 7. Inferior vena cava: The vessel was patent and dilated. The respirophasic diameter changes were blunted (less than 50%). HPI General Date/Time Provider Initiated Documentation: 08/06/19 01:41 . HPI Narrative: This is a pleasant 78-year-old female with a past medical history of COPD on 3 L of baseline oxygen, congestive heart failure with an EF of 45% with diffuse hypokinesis, Dominic berkowitz on Coumadin, who was recently admitted less than 3 months ago for CHF exacerbation and Dominic berkowitz, who was recently admitted less than 3 months ago for CHF exacerbation A. woo who presents today for evaluation of cough. Patient states that she does have a chronic cough however over the last week she has had a notable increase in worsening of this cough, with some mild productivity. She denies hemoptysis. Coughing becomes so severe that she does have some posttussive emesis. She also admits to notable chest pressure over the last few days and states that it feels like an elephant sitting on my chest. She does have some associated chills, she is afebrile. She denies any history of PE. She denies any tearing sensation in her chest. She denies any significant weight gain. She states that she has been taking her medications as directed, however of note recently at [facility] she had her oral Cardizem transition to metoprolol 100 mg twice daily. Patient denies any other complaints at this time. No other modifying factors. She denies any history of cardiac disease regards to ischemia however she has a notably strong family history of cardiac disease. Related Data Home Medications Medication Instructions Recorded Confirmed Oxygen 2 l INHALATION PRN PRN 07/11/13 08/06/19 Perforomist 20 mcg INHALATION BID ml NS 07/11/13 08/06/19 levothyroxine [Levoxyl] 100 mcg PO DAILY tab-cap NS 07/11/13 08/06/19 citalopram [Celexa] 20 mg PO DAILY tab-cap 01/19/18 08/06/19 fluticasone propion-salmeterol 1 puff INHALATION BID disk 01/19/18 08/06/19 [Advair Diskus] furosemide [Lasix] 20 mg PO BID tab-cap 01/19/18 08/06/19 latanoprost 1 drp OPHTHALMIC HS drp 01/19/18 06/21/19 ranitidine HCl 150 mg PO DAILY tab-cap 01/19/18 08/06/19 warfarin 2.5 mg PO DAILY tab-cap 01/19/18 08/06/19 nystatin (bulk) 1 ea MISCELLANEOUS DAILY 30 Days 02/05/18 08/06/19 #1 bottle Trelegy Ellipta 1 inh INHALATION DAILY 03/02/19 08/06/19 pramipexole 0.125 mg PO HS #0 tab 05/20/19 08/06/19 fesoterodine [Toviaz] 4 mg PO DAILY #30 tab 06/22/19 losartan 50 mg PO DAILY 08/06/19 08/06/19 metoprolol succinate 100 mg PO BID 08/06/19 08/06/19 Previous Rx's Medication Instructions Recorded nystatin (bulk) 1 ea MISCELLANEOUS DAILY 30 Days 02/05/18 #1 bottle pramipexole 0.125 mg PO HS #0 tab 05/20/19 fesoterodine [Toviaz] 4 mg PO DAILY #30 tab 06/22/19 Allergies Allergy/AdvReac Type Severity Reaction Status Date / Time adhesive Allergy Severe skin rash, Verified 06/21/19 21:04 blisters lisinopril Allergy Intermediate Verified 06/21/19 21:04 amoxicillin [Amoxicillin] Allergy Mild TINGLING Verified 06/21/19 21:04 oxybutynin Allergy Unknown PT CAN'T Verified 06/21/19 21:04 REMEMBER General CECILIA: 3 Review of Systems All systems reviewed & are unremarkable except as noted in HPI and below PFSH Medical History AF (paroxysmal atrial fibrillation) (Chronic 01/19/18) COPD (chronic obstructive pulmonary disease) (Chronic) Depression (Chronic) Edema H/O adenomatous polyp of colon (Chronic) Hypertension Hypothyroidism (Chronic) Morbid obesity (Chronic) Osteoarthritis (Chronic) Surgical History Abdominal hysterectomy H/O colonoscopy (Resolved) Family History Other Heart disease Social History Smoking/Tobacco Use Status: Former Tobacco Use Alcohol Intake: former Drug use: Never Substance use type: does not use Do you feel safe at home: Yes Do you feel safe in your relationship?: Yes Exam Narrative Exam Narrative: 1.Const: Well-nourished, Well-developed, appearing stated age 2.Eyes: PERRL, no conjunctival injection, and symmetrical lids. 3.ENT: Atraumatic external nose and ears. Moist MM. Neck: Symmetric, trachea midline, No thyromegaly. 4.CVS: +S1/S2, No murmurs or gallops. Peripheral pulses 2+ and equal in all extremities. Brisk capillary refill in all extremities. 5.RESP: Unlabored respiratory effort. Minimal crackles on the right lower lung dubois, no wheezes, no rhonchi. 6.GI: Soft, Nontender/Nondistended, No hepatosplenomegaly. No guarding or rebound. No epigastric tenderness 7.MSK: Normocephalic/Atraumatic, Extremities w/o deformity or ttp No cyanosis or clubbing, Normal movement of all extremities. No calf tenderness. Minimal trace to +1 pitting edema bilaterally. 8.Skin: Warm, Dry. No rashes or lesions. 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 Sensation grossly intact, no focal neurologic deficits. 10.Psych: (AAO) x3. Appropriate mood and affect Course Lab/Test Results Lab/Test Results: 08/06/19 01:52 Blood Blood Culture - Pending 08/06/19 01:52 Blood Blood Culture - Pending
[2019-08-06 02:23] LABS: Lactate 1.4 mmol/L (0.6-1.4)
[2019-08-06 02:24] LABS: Abs Immature Grans 0.01 k/cumm (0.0-0.09); Absolute Basophil Count 0.04 k/cumm (0.0-0.2); Absolute Eosinophil Count 0.15 k/cumm (0.0-0.7); Absolute Lymphocyte Count 1.45 k/cumm (1.2-3.4); Absolute Monocyte Count 0.53 k/cumm (0.11-0.7); Absolute Neutrophil Count 4.26 k/cumm (1.2-6.7); Basophils % 0.6; Eosinophils % 2.3; HCT 41.4 % (36.0-46.0); HGB 13.2 g/dL (12.0-15.5); Immature Grans % 0.2; Lymphocytes % 22.5; Mean Corp. HGB Concentration 31.9 g/dL (32.0-36.0); Mean Corpuscular Hemoglobin 32.8 pg (27.0-33.0); Mean Platelet Volume 10.5 fL (8.0-11.0); Monocytes % 8.2; Neutrophils % 66.2; Platelet Count 261 x1000/uL (130-400); RBC 4.02 m/cumm (4.00-5.20); RBC Distribution Width 14.6 % (11.7-14.6); White Blood Cell Count 6.44 k/cumm (4.4-10.8)
--- NOTE | 2019-08-06 02:29 | DI.RAD_ITS ---
EXAM: XR CHEST 2V PA LATERAL INDICATION: cough, chest pressure, SOb, crackles RLL. COMPARISON: No exams were available for comparison TECHNIQUE: 2D digital imaging was performed. FINDINGS: The heart is again noted to be enlarged. There mild underlying fibrotic changes. No infiltrate, eff usion or pulmonary edema is seen. IMPRESSION: Cardiomegaly. No acute abnormality.
[2019-08-06] MEDS: Albuterol/Ipratropium 3 ML UPD VIAL UPD (02:35)
[2019-08-06 02:49] LABS: ALT 30 U/L (14-59); AST 32 U/L (15-37); Albumin 2.9 g/dL (3.4-5.0); Alkaline Phosphatase 122 U/L (46-116); Anion Gap 7.3 mmol/L (3-11); BUN 19 mg/dL (7-18); Bilirubin, Total 0.3 mg/dL (0.2-1.0); CO2 29.7 mmol/L (21.0-32.0); CREATININE 0.96 mg/dL (0.55-1.02); Calcium 9.1 mg/dL (8.5-10.1); Chloride 105 mmol/L (98-107); Estimated GFR 56.21 (mL/min/1.73m2); Glucose 105 mg/dL (74-106); Lipase 160 U/L (73-393); NT-proBNP 3478 pg/mL (<300); Potassium 4.4 mmol/L (3.5-5.1); Sodium 142 mmol/L (136-145); TSH (W/Ref FT4) 14.06 uIU/mL (0.36-3.74); Total Protein 6.5 g/dL (6.4-8.2)
[2019-08-06 02:50] LABS: Troponin I < 0.05 ng/Ml (<0.06)
[2019-08-06 02:51] LABS: INR 2.7 (0.9-1.1); PTT Activated 33.7 sec (21.0-31.4); Prothrombin Time 26.7 sec (9.3-11.0)
[2019-08-06 03:07] LABS: FREE T4 0.62 ng/dL (0.76-1.46)
--- NOTE | 2019-08-06 03:14 | DI.VRAD_ITS ---
PROCEDURE INFORMATION: Exam: XR Chest, 2 Views Exam date and time: 08/06/2019 2:23 AM Age: 78 years old Clinical history: Cough and shortness of breath; Patient HX: Cough, chest pressure, crackles rll, SOB TECHNIQUE: Imaging protocol: XR of the chest Views: 2 views. COMPARISON: SD XR CHEST 2V PA LATERAL 06/21/2019 10:01 PM FINDINGS: Lungs: Hyperinflation could indicate element of COPD. No acute pulmonary infiltrate. Chronic interstitial change again noted. Pleural space: Unremarkable. No pleural effusion. No pneumothorax. Heart/Mediastinum: Stable borderline cardiomegaly. Bones/joints: Unremarkable. IMPRESSION: No acute finding. Dictated and Authenticated by: Willem Brown MD. Ordering:FARIDEH Anton MD
[2019-08-06] MEDS: methylPREDNISolone SUCC 125 MG VIAL IVP (03:49)
[2019-08-06] MEDS: Normal Saline Flush 10 ML SYR IVP ×2 (03:49→12:49)
[2019-08-06] MEDS: Furosemide 20 MG/2 ML VIAL IVP (03:49)
[2019-08-06 04:22] LABS: Bilirubin Negative (Negative); Blood Negative (Negative); Clarity Clear (Clear); Glucose Negative (Negative); Ketones Negative (Negative); Leukocyte Esterase Negative (Negative); Nitrite Negative (Negative); Urobilinogen 0.2 EU/dL (Up TO 0.2); pH 6.5 (5-8)
[2019-08-06 04:36] LABS: Bacteria Rare HPF (Negative); Epithelial Cells Moderate HPF (Negative); Other Cells Negative (Negative); RBC Negative HPF (0-2)
[2019-08-06 04:37] LABS: C & S Indicated? No; Casts Negative LPF (Negative); Crystals Negative HPF (Negative); Mucus Negative (Negative)
[2019-08-06 05:40] LABS: Troponin I < 0.05 ng/Ml (<0.06)
--- NOTE | 2019-08-06 06:09 | HPE_ITS ---
Date of service: 08/06/19 Time of Service: 06:09 Assessment and Plan Assessment and plan (1) SOB (shortness of breath): Status: Acute Assessment and plan: SOB, multifactorial, COPD versus CHF. Responding well to current regimen, would continue as is -- diuresis, updrafts and steroids. I see no indication for antibiotics. Otherwise: 1. CP: unclear if possible cardiogenic but no evidence at present of ACS. May be non-specific manifestation but might benefit from stress testing. Will check third troponin 2. Hypothyroid: TSH 14, says she has been out of meds for some days. Would just resume usual dose Synthroid and re-check 3. AF: might benefit from some tighter rate control, if remiains greater than 100 would increase beta severiano. INR therapeutic. History of Present Illness History of Present Illness Chief Complaint: SOB, CP Narrative: 78 female with h/o COPD, CHF, AF and prior episode CP without attached diagnosis -- here with 1 week of cough, incresed SOB and tonight some heaviness in chest. Initial findings of note for few rales, elevated BNP, clear CXR and no EKG changes, along with negative troponin (#2 now also negative). In ER given updraft, steroi ds and Lasix. Says she feels significantly better. No further CP. Review of Systems All systems reviewed & are unremarkable except as noted in HPI and below PFSH Medical History AF (paroxysmal atrial fibrillation) (Chronic 01/19/18) COPD (chronic obstructive pulmonary disease) (Chronic) Depression (Chronic) Edema H/O adenomatous polyp of colon (Chronic) Hypertension Hypothyroidism (Chronic) Morbid obesity (Chronic) Osteoarthritis (Chronic) Surgical History Abdominal hysterectomy H/O colonoscopy (Resolved) Family History Other Heart disease Social History Smoking/Tobacco Use Status: Former Tobacco Use Alcohol Intake: former Drug use: Never Substance use type: does not use Do you feel safe at home: Yes Do you feel safe in your relationship?: Yes Meds Home Medications and Allergies Home Medications Medication Instructions Recorded Confirmed Type Oxygen 2 l INHALATION PRN PRN 07/11/13 08/06/19 History Perforomist 20 mcg INHALATION BID ml NS 07/11/13 08/06/19 History levothyroxine [Levoxyl] 100 mcg PO DAILY tab-cap NS 07/11/13 08/06/19 History citalopram [Celexa] 20 mg PO DAILY tab-cap 01/19/18 08/06/19 History fluticasone propion-salmeterol 1 puff INHALATION BID disk 01/19/18 08/06/19 History [Advair Diskus] furosemide [Lasix] 20 mg PO BID tab-cap 01/19/18 08/06/19 History latanoprost 1 drp OPHTHALMIC HS drp 01/19/18 06/21/19 History ranitidine HCl 150 mg PO DAILY tab-cap 01/19/18 08/06/19 History warfarin 2.5 mg PO DAILY tab-cap 01/19/18 08/06/19 History nystatin (bulk) 1 ea MISCELLANEOUS DAILY 30 Days 02/05/18 08/06/19 Rx #1 bottle Trelegy Ellipta 1 inh INHALATION DAILY 03/02/19 08/06/19 History pramipexole 0.125 mg PO HS #0 tab 05/20/19 08/06/19 Rx fesoterodine [Toviaz] 4 mg PO DAILY #30 tab 06/22/19 Rx losartan 50 mg PO DAILY 08/06/19 08/06/19 History metoprolol succinate 100 mg PO BID 08/06/19 08/06/19 History Allergies Allergy/AdvReac Type Severity Reaction Status Date / Time adhesive Allergy Severe skin rash, Verified 06/21/19 21:04 blisters lisinopril Allergy Intermediate Verified 06/21/19 21:04 amoxicillin [Amoxicillin] Allergy Mild TINGLING Verified 06/21/19 21:04 oxybutynin Allergy Unknown PT CAN'T Verified 06/21/19 21:04 REMEMBER Exam Narrative Exam Narrative: 140/100/ 109, 36.8, 20, 97%. HEENT AT/NC; neck supple; lungs clear; heart distant but irr/irr; abdomen soft and NT; extremities chronic lymphedema Results Labs Result diagrams: 08/06/19 02:00 08/06/19 02:00 Labs: Laboratory Results - last 24 hr 08/06/19 08/06/19 08/06/19 02:00 02:00 02:00 WBC 6.44 RBC 4.02 Hgb 13.2 Hct 41.4 MCV 103.0 H MCH 32.8 MCHC 31.9 L RDW 14.6 Plt Count 261 MPV 10.5 Immature Gran % 0.2 Neutrophils % 66.2 Lymphocytes % 22.5 Monocytes % 8.2 Eosinophils % 2.3 Basophils % 0.6 Absolute Neutrophils 4.26 Absolute Lymphocytes 1.45 Absolute Monocytes 0.53 Absolute Eosinophils 0.15 Absolute Basophils 0.04 PT INR APTT Sodium 142 Potassium 4.4 Chloride 105 Carbon Dioxide 29.7 Anion Gap 7.3 BUN 19 H Creatinine 0.96 Estimated GFR/1.73 m2 56.21 Glucose 105 Lactate 1.4 Calcium 9.1 Total Bilirubin 0.3 AST 32 ALT 30 Alkaline Phosphatase 122 H Troponin I < 0.05 NT-Pro-B Natriuret Pep 3478 Total Protein 6.5 Albumin 2.9 L Lipase 160 TSH 14.06 H Free T4 0.62 L Urine Color Urine Clarity Urine pH Ur Specific [place] Urine Protein Urine Ketones Urine Blood Urine Nitrite Urine Bilirubin Urine Urobilinogen Ur Leukocyte Esterase Urine RBC Urine WBC Ur Epithelial Cells Urine Crystals Urine Bacteria Urine Casts Urine Mucus Urine Other Ur Culture Indicated? Urine Glucose 08/06/19 08/06/19 08/06/19 02:00 04:00 05:03 WBC RBC Hgb Hct MCV MCH MCHC RDW Plt Count MPV Immature Gran % Neutrophils % Lymphocytes % Monocytes % Eosinophils % Basophils % Absolute Neutrophils Absolute Lymphocytes Absolute Monocytes Absolute Eosinophils Absolute Basophils PT 26.7 H INR 2.7 H APTT 33.7 H Sodium Potassium Chloride Carbon Dioxide Anion Gap BUN Creatinine Estimated GFR/1.73 m2 Glucose Lactate Calcium Total Bilirubin AST ALT Alkaline Phosphatase Troponin I < 0.05 NT-Pro-B Natriuret Pep Total Protein Albumin Lipase TSH Free T4 Urine Color Yellow Urine Clarity Clear Urine pH 6.5 Ur Specific [place] 1.020 Urine Protein 30 H Urine Ketones Negative Urine Blood Negative Urine Nitrite Negative Urine Bilirubin Negative Urine Urobilinogen 0.2 Ur Leukocyte Esterase Negative Urine RBC Negative Urine WBC 3-5 Ur Epithelial Cells Moderate Urine Crystals Negative Urine Bacteria Rare Urine Casts Negative Urine Mucus Negative Urine Other Negative Ur Culture Indicated? No Urine Glucose Negative Last Vital Signs Temp 36.6 C 08/06/19 05:07 Pulse 109 H 08/06/19 05:07 Resp 20 08/06/19 05:07 BP 140/100 H 08/06/19 05:07 Pulse Ox 97 08/06/19 06:02
[2019-08-06 07:26] LABS: BE (Venous) 7.6 mmol/L (-3-3); HCO3 (Venous) 32 mmol/L (22-28); O2 Sat (Venous) 92 % (70-80); TCO2 (Venous) 28 mmol/L (22-29); pCO2 (Venous) 47 mm/Hg (34-47); pH (Venous) 7.44 (7.32-7.43); pO2 (Venous) 63 mm/Hg (28-44)
[2019-08-06] MEDS: Metoprolol CR 100 MG TABCR PO ×2 (08:02→19:11)
[2019-08-06] MEDS: Furosemide 20 MG TAB PO ×2 (08:31→15:16)
[2019-08-06] MEDS: Losartan 25 MG TAB 50 MG PO (08:31)
[2019-08-06] MEDS: Levothyroxine 100 MCG TAB PO (08:31)
[2019-08-06] MEDS: Citalopram 20 MG TAB PO (08:32)
[2019-08-06] MEDS: Fluticasone-Umeclidin-Vilanter [Trelegy Ellipta] 1 EACH IH (09:17)
[2019-08-06 09:39] LABS: Magnesium 2.1 mg/dL (1.8-2.4)
--- NOTE | 2019-08-06 11:05 | INITIAL_ITS ---
- If Service Date Differs Date of service: 08/06/19 Time of Service: 11:05 Care Management Initial Assess REASON FOR HOSPITALIZATION:: SOB, COPD, CHF Exacerbation PAST MEDICAL HISTORY/PAST SURGICAL HISTORY:: Medical History. AF (paroxysmal atrial fibrillation) (Chronic 01/19/18). COPD (chronic obstructive pulmonary disease) (Chronic). Depression (Chronic). Edema. H/O adenomatous polyp of colon (Chronic). Hypertension. Hypothyroidism (Chronic). Morbid obesity (Chronic). Osteoarthritis (Chronic). Surgical History. Abdominal hysterectomy. H/O colonoscopy (Resolved) PREVIOUS FUNCTIONAL STATUS/SOCIAL/FAMILY SUPPORTS:: Celeste lives in [place] with her , Valentin. Her sister, Annamaria, lives nearby in [place]. Her adult children all live out of the state. 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 She is independent with ADL's. CURRENT FUNCTIONAL STATUS:: Celeste was sitting up in bed when CM met with her. She reported that she is feeling a little better, but has to use the bathroom frequently. She expressed concern to CM regarding her past due bills. She reported that she does not currently have electricity as it has been shut off due to non payment. CM discussed options for community resources. Celeste reported that she has been working with a director case management in the community who is helping her get the support she needs. The director case management she is working with recently helped her with Medicare Part D and [employer] to assist in paying for her prescriptions, which she was very grateful for. She stated that she is receiving very good care at [facility]. CM will continue to follow. ADVANCE DIRECTIVES:: None on file Has patient been provided with information about the portal?: Yes Did the patient sign up for the portal?: No (previously offered) CODE STATUS:: DNR/DNI INSURANCE COVERAGE / FINANCIAL ISSUES:: [facility]/ Fin assist 100% CURRENT HOME/COMMUNITY SERVICES/EQUIPMENT:: [facility], Oxygen Therapy PRIMARY CARE PHYSICIAN:: Ginny Scherer POTENTIAL DISCHARGE NEEDS:: Evaluation for further needs, follow up on previous referrals PATIENT/FAMILY EDUCATION NEEDS:: Review discharge instructions, community based supports. ANTICIPATED BARRIERS TO DISCHARGE:: None identified TRANSPORTATION:: Celeste will transport home via private vehicle with her Valentin vs [facility] transportation. PLAN:: Anticipate Celeste will return home when medically cleared. Her , Valentin will drive her home via private vehicle vs [facility] when ready. She will have a follow up appointment with her PCP, as recommended. CM will continue to follow.
[2019-08-06 11:41] LABS: Troponin I < 0.05 ng/Ml (<0.06)
[2019-08-06] MEDS: methylPREDNISolone SUCC 40 MG VIAL 20 MG IVP (12:50)
[2019-08-06] MEDS: dilTIAZem 30 MG TAB PO (13:17)
[2019-08-06 19:14] LABS: Troponin I < 0.05 ng/Ml (<0.06)
[2019-08-06] MEDS: Pramipexole 0.25 MG TAB 0.125 MG PO (21:49)
[2019-08-06] MEDS: dilTIAZem 30 MG TAB 60 MG PO (21:50)
[2019-08-07] VITALS (12 sets, daily range): BP systolic 110–140; BP diastolic 64–87; PULSE 71–105; RESP 18–19; TEMP 36–37; O2SAT 92–98
[2019-08-07] MEDS: Acetaminophen 325 MG TAB 650 MG PO ×2 (01:17→15:34)
[2019-08-07] MEDS: Levothyroxine 100 MCG TAB PO (06:40)
[2019-08-07] MEDS: dilTIAZem 30 MG TAB 60 MG PO (06:41)
[2019-08-07] MEDS: Furosemide 20 MG TAB PO (07:40)
[2019-08-07] MEDS: Losartan 25 MG TAB 50 MG PO (07:40)
[2019-08-07] MEDS: Citalopram 20 MG TAB PO (07:40)
[2019-08-07] MEDS: Metoprolol CR 100 MG TABCR PO ×2 (07:40→19:52)
[2019-08-07 07:43] LABS: Abs Immature Grans 0.02 k/cumm (0.0-0.09); Absolute Basophil Count 0.03 k/cumm (0.0-0.2); Absolute Lymphocyte Count 1.19 k/cumm (1.2-3.4); Absolute Monocyte Count 0.98 k/cumm (0.11-0.7); Absolute Neutrophil Count 10.85 k/cumm (1.2-6.7); Basophils % 0.2; HCT 43.2 % (36.0-46.0); HGB 13.7 g/dL (12.0-15.5); Immature Grans % 0.2; Lymphocytes % 9.1; Mean Corp. HGB Concentration 31.7 g/dL (32.0-36.0); Mean Corpuscular Hemoglobin 32.4 pg (27.0-33.0); Mean Corpuscular Volume 102.1 fL (80-95); Mean Platelet Volume 10.6 fL (8.0-11.0); Monocytes % 7.5; Platelet Count 292 x1000/uL (130-400); RBC 4.23 m/cumm (4.00-5.20); RBC Distribution Width 14.6 % (11.7-14.6); White Blood Cell Count 13.07 k/cumm (4.4-10.8)
[2019-08-07] MEDS: Fluticasone-Umeclidin-Vilanter [Trelegy Ellipta] 1 EACH IH (07:44)
[2019-08-07 07:50] LABS: Anion Gap 6.5 mmol/L (3-11); BUN 24 mg/dL (7-18); CO2 31.5 mmol/L (21.0-32.0); CREATININE 1.01 mg/dL (0.55-1.02); Calcium 9.1 mg/dL (8.5-10.1); Chloride 101 mmol/L (98-107); Estimated GFR 53.01 (mL/min/1.73m2); Glucose 115 mg/dL (74-106); Magnesium 2.2 mg/dL (1.8-2.4); Potassium 4.2 mmol/L (3.5-5.1); Sodium 139 mmol/L (136-145)
[2019-08-07 07:53] LABS: INR 2.7 (0.9-1.1); Prothrombin Time 26.3 sec (9.3-11.0)
[2019-08-07] MEDS: dilTIAZem 30 MG TAB PO (09:37)
--- NOTE | 2019-08-07 10:28 | PHARADMIT ---
Admission Pharmacy Clinical Review CHF exacerbation, COPD,Chest pain Code Status DNR/DNI Current Weight 114.7 kg Renally Cleared and Narrow Therapeutic Index Meds crcl ~40ml/min QTc Value / Action Taken 438 BP Control, Fever 123/75 AFEBRILE Electrolytes reviewed OK DVT Prophylaxis WARFARIN Opiate Usage / Scheduled Bowel Regimen Ordered NO/NO(BM TODAY) Plt/SCr for Heparin / Enoxaparin 292/1.01 INR for Warfarin 2.7 H/H stable, WBC/Bands 13.7/43.2 WBC 13.07 Antibiotic appropriateness Cultures and Sensitivities BC PRELIM NO GROWTH 24 HOURS , FLU NEGATIVE Surgical ABX d/c within 24 hr NA DM control / Insulin Dosing NA Heart Failure (Check EF%) (ELVIN's, B-Block, Diuretics) CARDIZEM, METOPROLOL, FUROSEMIDE, LOSARTAN IV to PO Switch Home Meds Reviewed Home Meds Not Ordered fluticasone propion-salmeterol [Advair Diskus] 1 puff INHALATION BID latanoprost 1 drp OPHTHALMIC HS drp nystatin (bulk) 1 ea MISCELLANEOUS DAILY 30 Days fesoterodine [Toviaz] 4 mg PO DAILY #30 tab 06/22/19 [Rx] Comments AWAITING POSSIBLE ORDER/CLARIFICATION OF HOME MEDS
--- NOTE | 2019-08-07 12:02 | W.PM.PROGNOT ---
Date of Service Date of service: 08/07/19 Time of Service: 12:03 Assessment and Plan Assessment and plan (1) Atrial fibrillation: Status: Chronic Assessment and plan: Rate now controlled with addition and titration of Cardizem. Unsure if rapid rate was due to change in medications as outpatient to BB therapy. Continue telemetry. (2) CHF (congestive heart failure): Status: Chronic Assessment and plan: Evidence of mild LV dysfunction, with ECHO showing LVEF 45% in early May, new since 2016 - Diffuse hypokinesis of the anteroseptal and apical myocardium. Also with evidence of moderate MR/TR. - Continue low dose Furosemide by change to IV for increased diuresis. - Continue attempts at improved rate control. - Allergy noted to ELVIN-I. Will continue ARB. - Monitor daily weights, strict I/O's. - Findings were concerning for ischemia - important to note that under adverse conditions with a HR recorded up to 150-170 and in CHF the patient ruled out for ACS both now and during her last hospitalization in May. Unsure of drop in EF is healthcare representative of poor rate control vs. other. Nuclear stress was performed as outpatient and interpreted as negative, but with a transient anterior defect that corrected with attenuation correction. (3) Chest pain: Status: Acute Assessment and plan: Likely rate related in setting of Afib with RVR and acute CHF Exacerbation. No evidence of acute ischemia. Ruled out with serial troponins, and with recent nuclear stress test interpreted as negative for ischemia. Qualifiers: Chest pain type: unspecified Qualified Code(s): R07.9 - Chest pain, unspecified (4) Cough: Status: Acute Assessment and plan: Potentially related to fluid overload - cough improved with rate control and diuresis. Doubt infection given negative CXR, lack of initial leukocytosis (current mild elevation likely related to IV steroids previously given), and lack of fever. Patient also improved with diuresis and rate control. (5) Essential hypertension: Status: Acute Assessment and plan: Continue BB, ARB, with addition of Diltiazem. (6) Chronic obstructive lung disease: Status: Acute Assessment and plan: Appears quiescent. Continue Home O2, inahaler therapy. Qualifiers: COPD type: unspecified COPD Qualified Code(s): J44.9 - Chronic obstructive pulmonary disease, unspecified (7) Hypothyroidism: Status: Acute Assessment and plan: Elevated TSH with patient reporting non-compliance with her replacement therapy for the last week - last TSH normal 2 months ago. Levothyroxine restarted. Recommend repeat TSH in few weeks. Qualifiers: Hypothyroidism type: acquired Qualified Code(s): E03.9 - Hypothyroidism, unspecified (8) DVT prophylaxis: Status: Acute Assessment and plan: On chronic anticoagulation with Coumadin - monitor INR. On H2 severiano for GI protection. Subjective Subjective Interval history since last seen: Very pleasant 78 year old woman with a prior history of Afib, admitted from [facility] Emergency Department on 08/06 with a diagnosis of Afib with RVR and acute CHF Exacerbation. Mrs. Carpenter has a past Medical History significant for Afib on AC with coumadin, COPD on home Oxygen, HTN, Systolic CHF with an LVEF 45%, Obesity, Hypothyroidism, Overactive Bladder, and OA. She presented to the ED via EMS with complaints of cough and dyspnea. The patient reported a chronic cough, with recent acute worsening and subjective chills over the course of one week. This was accompanied by chest heaviness and SOB. She also reported that her physician had recently changed her chronic rate control agent from Diltiazem to Metoprolol. She was noted to be significantly dyspneic upon initial evaluation, even with minimal attempts at ambulation,, with noted Afib with RVR. Work-up in the ED showed a normal CBC and CMP, therapeutic INR, urinalysis negative for infection, and elevated BNP of 3478. Her CXR showed no acute findings. She was admitted for further evaluation and treatment. Initially Mrs. Carpenter was started on steroids, but with physical exam without wheezing - now off steroid therapy and feeling improved. Her HR has improved and is now controlled with addition and titration of oral cardizem. She also reports vast improvement in her cough with diuresis. She has also ruled out for ACS with serial cardiac biomarkers. No overnight events reported. Remains afebrile. Exam Narrative Exam Narrative: General: Patient appears comfortable, AAOX3, NAD Neck: Supple CV: Irregularly Irregular, Nontachycardic. Pulmonary: Clear to auscultation bilaterally, no crackles, wheezing, or rhonchi Abdomen: + Bowel Sounds, soft, nontender, nondistended Vascular: +1 b/l lower extremity edema Psych: Normal mood and affect. Objective Objective Clinical Data: Abnormal lab results 08/07/19 08/07/19 08/07/19 Range/Units 07:11 07:11 07:11 WBC 13.07 H (4.4-10.8) k/cumm MCV 102.1 H (80-95) fL MCHC 31.7 L (32.0-36.0) g/dL Absolute Neutrophils 10.85 H (1.2-6.7) k/cumm Absolute Lymphocytes 1.19 L (1.2-3.4) k/cumm Absolute Monocytes 0.98 H (0.11-0.7) k/cumm PT 26.3 H (9.3-11.0) sec INR 2.7 H (0.9-1.1) BUN 24 H (7-18) mg/dL Glucose 115 H (74-106) mg/dL Vital Signs Temperature 36.3 C L 08/07/19 07:48 Temperature Source Tympanic 08/07/19 07:48 Pulse 87 08/07/19 08:00 Pulse Rhythm Irregular 08/07/19 09:05 Respiratory Rate 18 08/07/19 07:48 Respiratory Effort 08/07/19 09:05 Respiratory Depth Normal 08/07/19 09:05 Respiratory Pattern Normal 08/07/19 09:05 Blood Pressure 123/75 08/07/19 07:48 Blood Pressure Mean 113 08/06/19 01:59 Blood Pressure Position Supine 08/06/19 01:59 Pulse Oximetry 92 L 08/07/19 07:48 Oxygen Delivery Method Room Air 08/07/19 07:48 Oxygen Flow Rate 0 08/07/19 07:48 Pain Level 3 08/07/19 07:48 Comment 08/06/19 01:59 Intake & Output 08/06/19 08/07/19 08/07/19 23:59 11:59 23:59 Intake Total 480 / 1000 760 / 760 Output Total 850 / 2250 850 / 850 Balance -370 / -1250 -90 / -90 Weight 114.7 kg Intake: IV Oral 480 / 1000 740 / 740 Output: Urine 850 / 2250 850 / 850 Other: Urine Color Pale Light [place] Yellow Urine Appearance Clear Clear Urine Odor None None Stool Size Copious Large Stool Characteristics Soft Soft Formed Brown Brown Voiding Methods Bedside Commode Bedside Commode Laboratory Results WBC 13.07 k/cumm (4.4-10.8) H 08/07/19 07:11 RBC 4.23 m/cumm (4.00-5.20) 08/07/19 07:11 Hgb 13.7 g/dL (12.0-15.5) 08/07/19 07:11 Hct 43.2 % (36.0-46.0) 08/07/19 07:11 MCV 102.1 fL (80-95) H 08/07/19 07:11 MCH 32.4 pg (27.0-33.0) 08/07/19 07:11 MCHC 31.7 g/dL (32.0-36.0) L 08/07/19 07:11 RDW 14.6 % (11.7-14.6) 08/07/19 07:11 Plt Count 292 x1000/uL (130-400) 08/07/19 07:11 MPV 10.6 fL (8.0-11.0) 08/07/19 07:11 Immature Gran % 0.2 08/07/19 07:11 Neutrophils % 83.0 08/07/19 07:11 Lymphocytes % 9.1 08/07/19 07:11 Monocytes % 7.5 08/07/19 07:11 Eosinophils % 0.0 08/07/19 07:11 Basophils % 0.2 08/07/19 07:11 Absolute Neutrophils 10.85 k/cumm (1.2-6.7) H 08/07/19 07:11 Absolute Lymphocytes 1.19 k/cumm (1.2-3.4) L 08/07/19 07:11 Absolute Monocytes 0.98 k/cumm (0.11-0.7) H 08/07/19 07:11 Absolute Eosinophils 0.00 k/cumm (0.0-0.7) 08/07/19 07:11 Absolute Basophils 0.03 k/cumm (0.0-0.2) 08/07/19 07:11 PT 26.3 sec (9.3-11.0) H 08/07/19 07:11 INR 2.7 (0.9-1.1) H 08/07/19 07:11 APTT 33.7 sec (21.0-31.4) H 08/06/19 02:00 VBG pH 7.44 (7.32-7.43) H 08/06/19 07:20 VBG pCO2 47 mm/Hg (34-47) 08/06/19 07:20 VBG pO2 63 mm/Hg (28-44) H 08/06/19 07:20 VBG HCO3 32 mmol/L (22-28) H 08/06/19 07:20 VBG Total CO2 28 mmol/L (22-29) 08/06/19 07:20 VBG O2 Saturation 92 % (70-80) H 08/06/19 07:20 VBG Base Excess 7.6 mmol/L (-3-3) H 08/06/19 07:20 Sodium 139 mmol/L (136-145) 08/07/19 07:11 Potassium 4.2 mmol/L (3.5-5.1) 08/07/19 07:11 Chloride 101 mmol/L (98-107) 08/07/19 07:11 Carbon Dioxide 31.5 mmol/L (21.0-32.0) 08/07/19 07:11 Anion Gap 6.5 mmol/L (3-11) 08/07/19 07:11 BUN 24 mg/dL (7-18) H 08/07/19 07:11 Creatinine 1.01 mg/dL (0.55-1.02) 08/07/19 07:11 Estimated GFR/1.73 m2 53.01 (mL/min/1.73m2) 08/07/19 07:11 Glucose 115 mg/dL (74-106) H 08/07/19 07:11 Lactate 1.4 mmol/L (0.6-1.4) 08/06/19 02:00 Calcium 9.1 mg/dL (8.5-10.1) 08/07/19 07:11 Magnesium 2.2 mg/dL (1.8-2.4) 08/07/19 07:11 Total Bilirubin 0.3 mg/dL (0.2-1.0) 08/06/19 02:00 AST 32 U/L (15-37) 08/06/19 02:00 ALT 30 U/L (14-59) 08/06/19 02:00 Alkaline Phosphatase 122 U/L (46-116) H 08/06/19 02:00 Troponin I < 0.05 ng/Ml (<0.06) 08/06/19 18:20 NT-Pro-B Natriuret Pep 3478 pg/mL (<300) 08/06/19 02:00 Total Protein 6.5 g/dL (6.4-8.2) 08/06/19 02:00 Albumin 2.9 g/dL (3.4-5.0) L 08/06/19 02:00 Lipase 160 U/L (73-393) 08/06/19 02:00 TSH 14.06 uIU/mL (0.36-3.74) H 08/06/19 02:00 Free T4 0.62 ng/dL (0.76-1.46) L 08/06/19 02:00 Urine Color Yellow (Yellow) 08/06/19 04:00 Urine Clarity Clear (Clear) 08/06/19 04:00 Urine pH 6.5 (5-8) 08/06/19 04:00 Ur Specific [place] 1.020 (1.005-1.025) 08/06/19 04:00 Urine Protein 30 mg/dL (Negative) H 08/06/19 04:00 Urine Ketones Negative mg/dL (Negative) 08/06/19 04:00 Urine Blood Negative (Negative) 08/06/19 04:00 Urine Nitrite Negative (Negative) 08/06/19 04:00 Urine Bilirubin Negative (Negative) 08/06/19 04:00 Urine Urobilinogen 0.2 EU/dL (Up TO 0.2) 08/06/19 04:00 Ur Leukocyte Esterase Negative (Negative) 08/06/19 04:00 Urine RBC Negative HPF (0-2) 08/06/19 04:00 Urine WBC 3-5 HPF (0-5) 08/06/19 04:00 Ur Epithelial Cells Moderate HPF (Negative) 08/06/19 04:00 Urine Crystals Negative HPF (Negative) 08/06/19 04:00 Urine Bacteria Rare HPF (Negative) 08/06/19 04:00 Urine Casts Negative LPF (Negative) 08/06/19 04:00 Urine Mucus Negative (Negative) 08/06/19 04:00 Urine Other Negative (Negative) 08/06/19 04:00 Ur Culture Indicated? No 08/06/19 04:00 Urine Glucose Negative mg/dL (Negative) 08/06/19 04:00
[2019-08-07] MEDS: dilTIAZem 30 MG TAB 90 MG PO ×2 (14:21→22:17)
[2019-08-07] MEDS: Normal Saline Flush 10 ML SYR IVP ×2 (15:11→19:53)
[2019-08-07] MEDS: Furosemide 20 MG/2 ML VIAL IVP (15:11)
--- NOTE | 2019-08-07 16:32 | PDOC.CMPRO ---
- If Service Date Differs Date of service: 08/07/19 Time of Service: 16:32 Care Management Progress Note S/O: Celeste was sitting up in her chair when CM met with her. She was pleasant and engaged in conversation. She reported that she was feeling better today than yesterday. She discussed her frustration with different medications. CM will continue to follow. A: Celeste is a 78 year old female admitted to [facility] on 08/06/2019 with CHF Exacerbation, COPD, Chest Pain. P: Anticipate Celeste will return home when medically cleared. Her , Valentin will drive her home via private vehicle vs RCT when ready. She will have a follow up appointment with her PCP, as recommended. CM will continue to follow.
[2019-08-07] MEDS: Pramipexole 0.25 MG TAB 0.125 MG PO (22:17)
[2019-08-08] VITALS (12 sets, daily range): BP systolic 98–133; BP diastolic 57–83; PULSE 55–86; RESP 12–20; TEMP 36–36.5; O2SAT 95–97
[2019-08-08] MEDS: Levothyroxine 100 MCG TAB PO (06:24)
[2019-08-08] MEDS: dilTIAZem 30 MG TAB 90 MG PO ×3 (06:24→22:05)
[2019-08-08 06:51] LABS: Abs Immature Grans 0.02 k/cumm (0.0-0.09); Absolute Basophil Count 0.03 k/cumm (0.0-0.2); Absolute Eosinophil Count 0.15 k/cumm (0.0-0.7); Absolute Lymphocyte Count 1.57 k/cumm (1.2-3.4); Absolute Monocyte Count 0.82 k/cumm (0.11-0.7); Absolute Neutrophil Count 6.47 k/cumm (1.2-6.7); Basophils % 0.3; Eosinophils % 1.7; HCT 43.4 % (36.0-46.0); HGB 13.7 g/dL (12.0-15.5); Immature Grans % 0.2; Lymphocytes % 17.3; Mean Corp. HGB Concentration 31.6 g/dL (32.0-36.0); Mean Corpuscular Hemoglobin 32.5 pg (27.0-33.0); Mean Corpuscular Volume 103.1 fL (80-95); Mean Platelet Volume 10.4 fL (8.0-11.0); Monocytes % 9.1; Neutrophils % 71.4; Platelet Count 303 x1000/uL (130-400); RBC 4.21 m/cumm (4.00-5.20); RBC Distribution Width 15.1 % (11.7-14.6); White Blood Cell Count 9.06 k/cumm (4.4-10.8)
[2019-08-08 06:55] LABS: INR 2.3 (0.9-1.1); Prothrombin Time 22.5 sec (9.3-11.0)
[2019-08-08 06:57] LABS: Anion Gap 5.9 mmol/L (3-11); BUN 32 mg/dL (7-18); CO2 32.1 mmol/L (21.0-32.0); CREATININE 1.27 mg/dL (0.55-1.02); Calcium 8.8 mg/dL (8.5-10.1); Chloride 103 mmol/L (98-107); Glucose 102 mg/dL (74-106); Magnesium 2.3 mg/dL (1.8-2.4); Potassium 4.6 mmol/L (3.5-5.1); Sodium 141 mmol/L (136-145)
[2019-08-08] MEDS: Fluticasone-Umeclidin-Vilanter [Trelegy Ellipta] 1 EACH IH (07:38)
[2019-08-08] MEDS: Furosemide 20 MG/2 ML VIAL IVP (07:54)
[2019-08-08] MEDS: Normal Saline Flush 10 ML SYR IVP (07:54)
[2019-08-08] MEDS: Citalopram 20 MG TAB PO (07:55)
[2019-08-08] MEDS: Losartan 25 MG TAB 50 MG PO (07:55)
[2019-08-08] MEDS: Metoprolol CR 100 MG TABCR PO (07:55)
[2019-08-08] MEDS: Acetaminophen 325 MG TAB 650 MG PO ×2 (08:03→20:14)
--- NOTE | 2019-08-08 12:53 | W.PM.PROGNOT ---
Date of Service Date of service: 08/08/19 Time of Service: 12:53 Assessment and Plan Assessment and plan (1) Atrial fibrillation: Status: Chronic Assessment and plan: Rate became controlled with addition and titration of Cardizem. Unsure if rapid rate was due to change in medications as outpatient to BB therapy. - Currently developing HR slightly bradycardic, with reported 2.5s pause on telemetry. Reviewed medications again - appears that patient is on Metoprolol Succinate on a BID basis, also listed that way on her home records. Will change to daily dosing, continue short-acting Cardizem with strict hold parameters, and monitor HR closely on telemetry. - Continue Coumadin and monitor INR - currently therapeutic. (2) CHF (congestive heart failure): Status: Chronic Assessment and plan: Evidence of mild LV dysfunction, with ECHO showing LVEF 45% in early May, new since 2016 - Diffuse hypokinesis of the anteroseptal and apical myocardium. Also with evidence of moderate MR/TR. - Exam improved, and creatinine mildly elevated. Hold lasix remainder of the day today, and resume oral dosing when appropriate. - Continue attempts at improved rate control. - Allergy noted to ELVIN-I. Will continue ARB long-term, but hold currently given mild ADAM. - Monitor daily weights, strict I/O's. - ECHO findings were concerning for ischemia - important to note that under adverse conditions with a HR recorded up to 150-170 and in CHF the patient ruled out for ACS both now and during her last hospitalization in May. Unsure if drop in EF is petroleum products sales representative of poor rate control chronically (Tachy mediated) vs. other. Nuclear stress was performed as outpatient and interpreted as negative, but with a transient anterior defect that corrected with attenuation correction. Doubt ischemia. (3) Chest pain: Status: Acute Assessment and plan: Likely rate related in setting of Afib with RVR and acute CHF Exacerbation. No evidence of acute ischemia. Ruled out with serial troponins, and with recent nuclear stress test interpreted as negative for ischemia. Qualifiers: Chest pain type: unspecified Qualified Code(s): R07.9 - Chest pain, unspecified (4) Cough: Status: Acute Assessment and plan: Potentially related to fluid overload - cough improved with rate control and diuresis. Doubt infection given negative CXR, lack of initial leukocytosis (prior mild elevation likely related to IV steroids, resolved), and lack of fever. Patient also improved with diuresis and rate control. (5) Essential hypertension: Status: Acute Assessment and plan: Continue BB with addition of Diltiazem. ARB on hold. (6) Chronic obstructive lung disease: Status: Acute Assessment and plan: Appears quiescent. Continue Home O2, inahaler therapy. Qualifiers: COPD type: unspecified COPD Qualified Code(s): J44.9 - Chronic obstructive pulmonary disease, unspecified (7) Hypothyroidism: Status: Acute Assessment and plan: Elevated TSH with patient reporting non-compliance with her replacement therapy for the last week - last TSH normal 2 months ago. Levothyroxine restarted. Recommend repeat TSH in few weeks. Qualifiers: Hypothyroidism type: acquired Qualified Code(s): E03.9 - Hypothyroidism, unspecified (8) DVT prophylaxis: Status: Acute Assessment and plan: On chronic anticoagulation with Coumadin - monitor INR. On H2 severiano for GI protection. Subjective Subjective Interval history since last seen: Very pleasant 78 year old woman with a prior history of Afib, admitted from [facility] Emergency Department on 08/06 with a diagnosis of Afib with RVR and acute CHF Exacerbation. Mrs. Carpenter has a past Medical History significant for Afib on AC with coumadin, COPD on home Oxygen, HTN, Systolic CHF with an LVEF 45%, Obesity, Hypothyroidism, Overactive Bladder, and OA. She presented to the ED via EMS with complaints of cough and dyspnea. The patient reported a chronic cough, with recent acute worsening and subjective chills over the course of one week. This was accompanied by chest heaviness and SOB. She also reported that her physician had recently changed her chronic rate control agent from Diltiazem to Metoprolol. She was noted to be significantly dyspneic upon initial evaluation, even with minimal attempts at ambulation,, with noted Afib with RVR. Work-up in the ED showed a normal CBC and CMP, therapeutic INR, urinalysis negative for infection, and elevated BNP of 3478. Her CXR showed no acute findings. She was admitted for further evaluation and treatment. Initially Mrs. Carpenter was started on steroids, but with physical exam without wheezing - has remained off steroid therapy and feeling improved. Her HR has improved and is now controlled with addition and titration of oral cardizem. She also reports vast improvement in her cough with diuresis, and now describes her breathing as near baseline. She has also ruled out for ACS with serial cardiac biomarkers. Creatinine appears mildly elevated this morning with change to IV diuresis. No overnight events reported. Remains afebrile. Exam Narrative Exam Narrative: General: Patient appears comfortable, AAOX3, NAD Neck: Supple CV: Irregularly Irregular, borderline bradycaric. Pulmonary: Clear to auscultation bilaterally, no crackles, wheezing, or rhonchi Abdomen: + Bowel Sounds, soft, nontender, nondistended Vascular: +1 b/l lower extremity edema which appears improved Psych: Normal mood and affect. Objective Objective Clinical Data: Abnormal lab results 08/08/19 08/08/19 08/08/19 Range/Units 06:30 06:30 06:30 MCV 103.1 H (80-95) fL MCHC 31.6 L (32.0-36.0) g/dL RDW 15.1 H (11.7-14.6) % Absolute Monocytes 0.82 H (0.11-0.7) k/cumm PT 22.5 H (9.3-11.0) sec INR 2.3 H (0.9-1.1) Carbon Dioxide 32.1 H (21.0-32.0) mmol/L BUN 32 H (7-18) mg/dL Creatinine 1.27 H (0.55-1.02) mg/dL Vital Signs Temperature 36 C L 08/08/19 11:15 Temperature Source Tympanic 08/08/19 11:15 Pulse 55 L 08/08/19 11:15 Pulse Rhythm Irregular 08/08/19 09:53 Respiratory Rate 16 08/08/19 11:15 Respiratory Effort 08/08/19 09:53 Respiratory Depth Shallow 08/08/19 09:53 Respiratory Pattern Normal 08/08/19 09:53 Blood Pressure 98/57 L 08/08/19 11:15 Blood Pressure Mean 113 08/06/19 01:59 Blood Pressure Position Supine 08/06/19 01:59 Pulse Oximetry 95 08/08/19 11:15 Oxygen Delivery Method Nasal Cannula 08/08/19 07:25 Oxygen Flow Rate 2 08/08/19 07:25 Pain Level 0 08/08/19 11:15 Comment 08/06/19 01:59 Intake & Output 08/07/19 08/08/19 08/08/19 23:59 11:59 23:59 Intake Total 490 / 1490 Output Total 1300 / 2150 600 / 600 Balance -810 / -660 -600 / -600 Weight 113.6 kg Intake: IV Oral 480 / 1460 Output: Urine 1300 / 2150 600 / 600 Other: Urine Color Yellow Yellow Urine Appearance Clear Clear Urine Odor None None Voiding Methods Bedside Commode Bedside Commode Laboratory Results WBC 9.06 k/cumm (4.4-10.8) D 08/08/19 06:30 RBC 4.21 m/cumm (4.00-5.20) 08/08/19 06:30 Hgb 13.7 g/dL (12.0-15.5) 08/08/19 06:30 Hct 43.4 % (36.0-46.0) 08/08/19 06:30 MCV 103.1 fL (80-95) H 08/08/19 06:30 MCH 32.5 pg (27.0-33.0) 08/08/19 06:30 MCHC 31.6 g/dL (32.0-36.0) L 08/08/19 06:30 RDW 15.1 % (11.7-14.6) H 08/08/19 06:30 Plt Count 303 x1000/uL (130-400) 08/08/19 06:30 MPV 10.4 fL (8.0-11.0) 08/08/19 06:30 Immature Gran % 0.2 08/08/19 06:30 Neutrophils % 71.4 08/08/19 06:30 Lymphocytes % 17.3 08/08/19 06:30 Monocytes % 9.1 08/08/19 06:30 Eosinophils % 1.7 08/08/19 06:30 Basophils % 0.3 08/08/19 06:30 Absolute Neutrophils 6.47 k/cumm (1.2-6.7) 08/08/19 06:30 Absolute Lymphocytes 1.57 k/cumm (1.2-3.4) 08/08/19 06:30 Absolute Monocytes 0.82 k/cumm (0.11-0.7) H 08/08/19 06:30 Absolute Eosinophils 0.15 k/cumm (0.0-0.7) 08/08/19 06:30 Absolute Basophils 0.03 k/cumm (0.0-0.2) 08/08/19 06:30 PT 22.5 sec (9.3-11.0) H 08/08/19 06:30 INR 2.3 (0.9-1.1) H 08/08/19 06:30 APTT 33.7 sec (21.0-31.4) H 08/06/19 02:00 VBG pH 7.44 (7.32-7.43) H 08/06/19 07:20 VBG pCO2 47 mm/Hg (34-47) 08/06/19 07:20 VBG pO2 63 mm/Hg (28-44) H 08/06/19 07:20 VBG HCO3 32 mmol/L (22-28) H 08/06/19 07:20 VBG Total CO2 28 mmol/L (22-29) 08/06/19 07:20 VBG O2 Saturation 92 % (70-80) H 08/06/19 07:20 VBG Base Excess 7.6 mmol/L (-3-3) H 08/06/19 07:20 Sodium 141 mmol/L (136-145) 08/08/19 06:30 Potassium 4.6 mmol/L (3.5-5.1) 08/08/19 06:30 Chloride 103 mmol/L (98-107) 08/08/19 06:30 Carbon Dioxide 32.1 mmol/L (21.0-32.0) H 08/08/19 06:30 Anion Gap 5.9 mmol/L (3-11) 08/08/19 06:30 BUN 32 mg/dL (7-18) H 08/08/19 06:30 Creatinine 1.27 mg/dL (0.55-1.02) H 08/08/19 06:30 Estimated GFR/1.73 m2 40.70 (mL/min/1.73m2) 08/08/19 06:30 Glucose 102 mg/dL (74-106) 08/08/19 06:30 Lactate 1.4 mmol/L (0.6-1.4) 08/06/19 02:00 Calcium 8.8 mg/dL (8.5-10.1) 08/08/19 06:30 Magnesium 2.3 mg/dL (1.8-2.4) 08/08/19 06:30 Total Bilirubin 0.3 mg/dL (0.2-1.0) 08/06/19 02:00 AST 32 U/L (15-37) 08/06/19 02:00 ALT 30 U/L (14-59) 08/06/19 02:00 Alkaline Phosphatase 122 U/L (46-116) H 08/06/19 02:00 Troponin I < 0.05 ng/Ml (<0.06) 08/06/19 18:20 NT-Pro-B Natriuret Pep 3478 pg/mL (<300) 08/06/19 02:00 Total Protein 6.5 g/dL (6.4-8.2) 08/06/19 02:00 Albumin 2.9 g/dL (3.4-5.0) L 08/06/19 02:00 Lipase 160 U/L (73-393) 08/06/19 02:00 TSH 14.06 uIU/mL (0.36-3.74) H 08/06/19 02:00 Free T4 0.62 ng/dL (0.76-1.46) L 08/06/19 02:00 Urine Color Yellow (Yellow) 08/06/19 04:00 Urine Clarity Clear (Clear) 08/06/19 04:00 Urine pH 6.5 (5-8) 08/06/19 04:00 Ur Specific [place] 1.020 (1.005-1.025) 08/06/19 04:00 Urine Protein 30 mg/dL (Negative) H 08/06/19 04:00 Urine Ketones Negative mg/dL (Negative) 08/06/19 04:00 Urine Blood Negative (Negative) 08/06/19 04:00 Urine Nitrite Negative (Negative) 08/06/19 04:00 Urine Bilirubin Negative (Negative) 08/06/19 04:00 Urine Urobilinogen 0.2 EU/dL (Up TO 0.2) 08/06/19 04:00 Ur Leukocyte Esterase Negative (Negative) 08/06/19 04:00 Urine RBC Negative HPF (0-2) 08/06/19 04:00 Urine WBC 3-5 HPF (0-5) 08/06/19 04:00 Ur Epithelial Cells Moderate HPF (Negative) 08/06/19 04:00 Urine Crystals Negative HPF (Negative) 08/06/19 04:00 Urine Bacteria Rare HPF (Negative) 08/06/19 04:00 Urine Casts Negative LPF (Negative) 08/06/19 04:00 Urine Mucus Negative (Negative) 08/06/19 04:00 Urine Other Negative (Negative) 08/06/19 04:00 Ur Culture Indicated? No 08/06/19 04:00 Urine Glucose Negative mg/dL (Negative) 08/06/19 04:00
--- NOTE | 2019-08-08 14:53 | CHAPLAIN ---
Celeste was resting in bed when I visited. She was friendly and making jokes. She said she is feeling better today and anticipates going home tomorrow. She said her won't likely visited because they are short on gas money, so he will wait and drive in to pick her up when she is being discharged. She plans to go to her sister's in [place] for Thanksgiving. According to Care Management notes, Celeste has reported that their heat has been shut off, due to lack of payment and they are working with a apartment community manager to see what financial help is available.
--- NOTE | 2019-08-08 15:23 | PDOC.CMPRO ---
- If Service Date Differs Date of service: 08/08/19 Time of Service: 15:23 Care Management Progress Note S/O: Celeste was sitting up in her bed when CM met with her. She was pleasant and engaged in conversation. She reported that she was feeling good today, and that the MD is planning on keeping her one more night. She is agreeable to the plan. CM will continue to follow. A: Celeste is a 78 year old female admitted to [facility] on 08/06/2019 with CHF Exacerbation, COPD, Chest Pain. P: Anticipate Celeste will return home when medically cleared. Her , Valentin will drive her home via private vehicle vs RCT when ready. She will have a follow up appointment with her PCP, as recommended. CM will continue to follow.
[2019-08-08] MEDS: Pramipexole 0.25 MG TAB 0.125 MG PO (22:05)
[2019-08-09 03:57] VITALS: BP 112/80; PULSE 65; RESP 18; TEMP 36.5; O2SAT 96
[2019-08-09] MEDS: dilTIAZem 30 MG TAB 90 MG PO (06:47)
[2019-08-09] MEDS: Levothyroxine 100 MCG TAB PO (06:51)
[2019-08-09 06:56] LABS: Abs Immature Grans 0.02 k/cumm (0.0-0.09); Absolute Basophil Count 0.04 k/cumm (0.0-0.2); Absolute Lymphocyte Count 1.26 k/cumm (1.2-3.4); Basophils % 0.7; Eosinophils % 3.4; HCT 41.5 % (36.0-46.0); Immature Grans % 0.3; Lymphocytes % 21.3; Mean Corp. HGB Concentration 31.3 g/dL (32.0-36.0); Mean Corpuscular Hemoglobin 32.6 pg (27.0-33.0); Mean Platelet Volume 10.3 fL (8.0-11.0); Monocytes % 13.5; Neutrophils % 60.8; Platelet Count 253 x1000/uL (130-400); RBC 3.99 m/cumm (4.00-5.20); RBC Distribution Width 14.9 % (11.7-14.6); White Blood Cell Count 5.92 k/cumm (4.4-10.8)
[2019-08-09 07:06] LABS: Anion Gap 2.1 mmol/L (3-11); BUN 25 mg/dL (7-18); CO2 35.9 mmol/L (21.0-32.0); Calcium 8.5 mg/dL (8.5-10.1); Chloride 103 mmol/L (98-107); Estimated GFR 53.62 (mL/min/1.73m2); Glucose 97 mg/dL (74-106); Magnesium 2.3 mg/dL (1.8-2.4); Potassium 4.6 mmol/L (3.5-5.1); Prothrombin Time 24.1 sec (9.3-11.0); Sodium 141 mmol/L (136-145)
[2019-08-09 07:20] LABS: INR 2.4 (0.9-1.1)
[2019-08-09] MEDS: Acetaminophen 325 MG TAB 650 MG PO (07:52)
[2019-08-09] MEDS: Metoprolol CR 100 MG TABCR PO (07:53)
[2019-08-09] MEDS: Citalopram 20 MG TAB PO (07:53)
[2019-08-09] MEDS: Fluticasone-Umeclidin-Vilanter [Trelegy Ellipta] 1 EACH IH (08:05)
[2019-08-09 08:07] VITALS: O2SAT 95
[2019-08-09] MEDS: Furosemide 20 MG TAB PO (09:17)
[2019-08-09 09:20] VITALS: PULSE 84
[2019-08-09 09:45] VITALS: O2SAT 88
--- NOTE | 2019-08-09 12:45 | DSE_ITS ---
Date of service: 08/09/19 Time of Service: 12:49 DS: Diagnosis Discharge Diagnosis (1) Atrial fibrillation: Status: Chronic (2) CHF (congestive heart failure): Status: Chronic (3) Chest pain: Status: Acute (4) Cough: Status: Acute (5) Essential hypertension: Status: Acute (6) Chronic obstructive lung disease: Status: Acute (7) Hypothyroidism: Status: Acute Discharge Plan Disposition Patient Disposition: HOME Condition: Improving Discharge Details Clinical Impression: Acute exacerbation of CHF (congestive heart failure), Chest pain, Acute exacerbation of chronic obstructive pulmonary disease Reason For Visit: CHF EXACERBATION, COPD, CHEST PAIN Admit Date/Time: 08/08/19 12:57 Admit Provider: Isai Boston Attending Provider: Mata Lauren Primary Care Provider: Ginny Scherer V ED Provider: Desean Huizar Hospital Course Hospital Course: Chief Complaint: Dyspnea, Cough HPI: Very pleasant 78 year old woman with a prior history of Afib, admitted from [facility] Emergency Department on 08/06 with a diagnosis of Afib with RVR and acute CHF Exacerbation. Mrs. Carpenter has a past Medical History significant for Afib on AC with coumadin, COPD on home O2, HTN, Systolic CHF with an LVEF 45%, Obesity, Hypothyroidism, Overactive Bladder, and OA. She presented to the ED via EMS with complaints of cough and dyspnea. The patient reported a chronic cough, with recent acute worsening and subjective chills over the course of one week. This was accompa nied by chest heaviness and SOB. She also reported that her physician had recently changed her chronic rate control agent from Diltiazem to Metoprolol. She was noted to be significantly dyspneic upon initial evaluation, especially with minimal attempts at ambulation,, with noted Afib with RVR. Work-up in the ED showed a normal CBC and CMP, therapeutic INR, urinalysis negative for infection, and elevated BNP of 3478. Her CXR showed no acute findings. She was admitted for further evaluation and treatment. Initially Mrs. Carpenter was started on steroids, but with physical exam without wheezing has remained off steroid therapy and feeling improved. Her HR has improved and is now controlled with addition and titration of oral cardizem. She also reports vast improvement in her cough with diuresis, and now describes her breathing as at or near baseline. She has also ruled out for ACS with serial cardiac biomarkers. Creatinine is at baseline. No overnight events reported. Remains afebrile. Hospital Course: (1) Atrial fibrillation: Rate became controlled with addition and titration of Cardizem. Unsure if rapid rate was due to change in medications as outpatient to BB therapy, or intermittent non-compliance with oral furosemide. - HR has been well controlled, without any further bradycardia and with decrease in pauses (reported 2.5s pause on telemetry 08/08) since change in Metoprolol XL from home BID to daily dosing. Will continue Cardizem, with change to equivalent once daily dosing. Mrs. Carpenter has responded well with reinitiation of Diltiazem. - Continue Coumadin and monitor INR - currently therapeutic. (2) CHF (congestive heart failure): Evidence of mild LV dysfunction, with ECHO showing LVEF 45% in early May, new since 2016 - Diffuse hypokinesis of the anteroseptal and apical myocardium. Also with evidence of moderate MR/TR. - Exam improved, and creatinine back to baseline. Will continue oral lasix at home dosing. - Continue attempts at improved rate control. - Allergy noted to ELVIN-I. Will continue ARB long-term. - Weight is 114 Kg at time of discharge. Patient is -3L following current 3 day hospitalization. - ECHO findings from last hospitalization were concerning for ischemia - important to note that under adverse conditions with a HR recorded up to 150-170 and in CHF the patient ruled out for ACS both now and during her last hospitalization in May. 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 other. Nuclear stress was performed as outpatient and interpreted as negative, but with a transient a nterior defect that corrected with attenuation correction. Doubt ischemia. (3) Chest pain: Sensation of heaviness at time of admission likely rate related in setting of Afib with RVR and acute CHF Exacerbation. No evidence of acute ischemia. Ruled out with serial troponins, and with recent nuclear stress test interpreted as negative for ischemia. (4) Cough: Potentially related to fluid overload - cough improved with rate control and diuresis. Doubt infection given negative CXR, lack of initial leukocytosis (prior mild elevation likely related to IV steroids, resolved), and lack of fever. Patient also improved with diuresis and rate control. (5) Essential hypertension: Continue BB with addition of Diltiazem. ARB will be resumed. (6) Chronic obstructive lung disease: Appears quiescent. Continue Home O2, inahaler therapy. (7) Hypothyroidism: Elevated TSH with patient reporting non-compliance with her replacement therapy for the last week - last TSH normal 2 months ago. Levothyroxine restarted. Recommend repeat TSH in few weeks. Home Meds and New Rx's Prescriptions: New metoprolol succinate 100 mg Tablet Extended Release 24 Hr 100 mg PO DAILY Qty: 0 RF: 0 diltiazem HCl [Cardizem CD] 240 mg capsule,extended release 24hr 240 mg PO QHS Qty: 30 RF: 0 Continued levothyroxine [Levoxyl] 100 MCG tablet 100 mcg PO DAILY RF: 0 Perforomist 20 MCG/2 ML solution for nebulization 20 mcg Inhalation BID RF: 0 Oxygen EACH 2 l Inhalation PRN PRNRF: 0 latanoprost 2.5 ML drops 1 drp Ophthalmic HS RF: 0 fluticasone propion-salmeterol [Advair Diskus] 1 EACH blister with device 1 puff Inhalation BID RF: 0 warfarin 2.5 MG tablet 2.5 mg PO DAILY RF: 0 citalopram [Celexa] 20 MG tablet 20 mg PO DAILY RF: 0 ranitidine HCl 150 MG capsule 150 mg PO DAILY RF: 0 furosemide [Lasix] 20 MG tablet 20 mg PO BID RF: 0 nystatin (bulk) 1 EACH powder 1 ea Miscellaneous DAILY 30 Days Qty: 1 RF: 1 Trelegy Ellipta 100-62.5-25 mcg Blister With Device 1 inh INHALATION DAILY RF: 0 pramipexole 0.25 mg Tablet 0.125 mg PO HS Qty: 0 RF: 0 losartan 25 mg tablet 50 mg PO DAILY RF: 0 Toviaz 4 mg tablet extended release 24 hr 4 mg PO DAILY Qty: 30 RF: 0 Discontinued metoprolol succinate 100 mg Tablet Extended Release 24 Hr 100 mg PO BID RF: 0 Discharge Instructions Stand Alone Forms: Nursing Discharge Form Referrals: Shelly Mcbride PA [NURSE PRACTITIONER] - 08/12/19 1:15 pm Activity:: No strenuous activity Equipment/Supplies:: No Equipment Needed Diet:: Low Sodium Discharge Orders Discharge Orders: Discharge Order (Routine); Ordered 08/09/19 Ordered By: Mata Lathari DS: Summary Status at Discharge Functional status at discharge: independent ambulation Overall status at discharge: patient is back to baseline Mental Status: mental status grossly normal Speech and Movement: speech and movement normal Mood: congruent mood Affect: normal affect Exam Psych Mental Status: mental status grossly normal Speech and Movement: speech and movement normal Mood: congruent mood Affect: normal affect DS: Data Vitals/I&O Vitals and I&O: Vital Signs Temperature 36.5 C 08/09/19 03:57 Temperature Source Tympanic 08/09/19 03:57 Pulse 84 08/09/19 09:20 Pulse Rhythm Irregular 08/09/19 09:06 Respiratory Rate 18 08/09/19 03:57 Respiratory Effort 08/09/19 09:06 Respiratory Depth Normal 08/09/19 09:06 Respiratory Pattern Normal 08/09/19 09:06 Blood Pressure 112/80 08/09/19 03:57 Blood Pressure Mean 113 08/06/19 01:59 Blood Pressure Position Supine 08/06/19 01:59 Pulse Oximetry 88 L 08/09/19 09:45 Oxygen Delivery Method Nasal Cannula 08/09/19 09:45 Oxygen Flow Rate 2 08/09/19 09:45 Pain Level 8 08/09/19 07:52 Comment 08/08/19 22:05 Intake & Output 08/08/19 08/09/19 08/09/19 23:59 11:59 23:59 Intake Total 480 / 480 240 / 240 Output Total 1100 / 1700 100 / 100 Balance -620 / -1220 140 / 140 Weight 114 kg Intake: Oral 480 / 480 240 / 240 Output: Urine 1100 / 1700 100 / 100 Other: Urine Color Yellow Urine Appearance Clear Urine Odor None Comment and voided in toilet also during noc Stool Size Large Stool Characteristics Formed Voiding Methods Bedside Commode Toilet Data Completed and Pending Completed studies during hospitalization [Text1]: Exam(s) a RAD:XR chest 2V PA & lateral EXAM: XR CHEST 2V PA LATERAL INDICATION: cough, chest pressure, SOb, crackles RLL. COMPARISON: No exams were available for comparison TECHNIQUE: 2D digital imaging was performed. FINDINGS: The heart is again noted to be enlarged. There mild underlying fibrotic changes. No infiltrate, effusion or pulmonary edema is seen. IMPRESSION: Cardiomegaly. No acute abnormality. Labs on day of discharge: Labs from last 24 hours 08/09/19 08/09/19 08/09/19 06:30 06:30 06:30 WBC 5.92 D RBC 3.99 L Hgb 13.0 Hct 41.5 MCV 104.0 H MCH 32.6 MCHC 31.3 L RDW 14.9 H Plt Count 253 MPV 10.3 Immature Gran % 0.3 Neutrophils % 60.8 Lymphocytes % 21.3 Monocytes % 13.5 Eosinophils % 3.4 Basophils % 0.7 Absolute Neutrophils 3.60 Absolute Lymphocytes 1.26 Absolute Monocytes 0.80 H Absolute Eosinophils 0.20 Absolute Basophils 0.04 PT 24.1 H INR 2.4 H Sodium 141 Potassium 4.6 Chloride 103 Carbon Dioxide 35.9 H Anion Gap 2.1 L BUN 25 H Creatinine 1.00 Estimated GFR/1.73 m2 53.62 Glucose 97 Calcium 8.5 Magnesium 2.3 Preliminary micro results at discharge 08/06/19 03:15 Blood Culture - Preliminary Blood NO GROWTH 72 HOURS 08/06/19 03:15 Blood Culture - Preliminary Blood NO GROWTH 72 HOURS PFS Medical History AF (paroxysmal atrial fibrillation) (Chronic 01/19/18) COPD (chronic obstructive pulmonary disease) (Chronic) Depression (Chronic) Edema H/O adenomatous polyp of colon (Chronic) Hypertension Hypothyroidism (Chronic) Morbid obesity (Chronic) Osteoarthritis (Chronic) Surgical History Abdominal hysterectomy H/O colonoscopy (Resolved) Family History Other Heart disease Social History Smoking/Tobacco Use Status: Former Tobacco Use Alcohol Intake: former Drug use: Never Substance use type: does not use Do you feel safe at home: Yes Do you feel safe in your relationship?: Yes
[2019-08-09 13:41] VITALS: PULSE 82
== END 2019-08-09 13:52 | disposition home or self-care (01) | DRG 292 ==
LOC: ER 03:49 → MS 03:55
PROVIDERS: Admitting Provider General Practice; Emergency Provider Student in an Organized Health Care Education/Training Program; PCP Family Medicine; Visit Provider Internal Medicine
DX: I50.23 Acute on chronic systolic (congestive) heart failure (principal); Z68.41 Body mass index [BMI] 40.0-44.9, adult; R07.9 Chest pain, unspecified; I48.91 Unspecified atrial fibrillation; R05 Cough; I11.0 Hypertensive heart disease with heart failure; E03.9 Hypothyroidism, unspecified; J44.9 Chronic obstructive pulmonary disease, unspecified; Z99.81 Dependence on supplemental oxygen; Z79.01 Long term (current) use of anticoagulants; F32.9 Major depressive disorder, single episode, unspecified; E66.01 Morbid (severe) obesity due to excess calories; T38.1X6A Underdosing of thyroid hormones and substitutes, initial encounter; N32.81 Overactive bladder
CPT/HCPCS: 36410; 36415; 80048; 80053; 82805; 83690; 87040; 87449; 93005; 94640; 96374; 99222; 99232; 99233; 99239; 99285; 71046; 81003; 81015; 83605; 83735; 83880; 84439; 84443; 84484; 85025; 85610; 85730; 93010; 99218; G0378; J1941; J2930; J7620

== ENCOUNTER 2019-08-19 01:32 | Outpatient (CLI) | payer OTHER, SELFPAY ==
[2019-08-19 11:56] LABS: INR 2.7 (0.9-1.1); Prothrombin Time 26.8 sec (9.3-11.0)
== END 2019-08-19 01:52 ==
PROVIDERS: PCP Family Medicine; Visit Provider Family Medicine
DX: I48.0 Paroxysmal atrial fibrillation (principal); Z79.01 Long term (current) use of anticoagulants
CPT/HCPCS: 36415; 85610

== ENCOUNTER 2019-08-26 00:20 | Outpatient (CLI) | payer OTHER, SELFPAY ==
[2019-08-26 12:18] LABS: INR 2.4 (0.9-1.1); Prothrombin Time 23.3 sec (9.3-11.0)
== END 2019-08-26 00:40 ==
PROVIDERS: PCP Family Medicine; Visit Provider Family Medicine
DX: I48.0 Paroxysmal atrial fibrillation (principal); Z79.01 Long term (current) use of anticoagulants
CPT/HCPCS: 36415; 85610

== ENCOUNTER 2019-09-09 01:19 | Outpatient (CLI) | payer OTHER, SELFPAY ==
[2019-09-09 11:45] LABS: INR 2.5 (0.9-1.1); Prothrombin Time 24.6 sec (9.3-11.0)
== END 2019-09-09 01:39 ==
PROVIDERS: PCP Family Medicine; Visit Provider Family Medicine
DX: I48.0 Paroxysmal atrial fibrillation (principal); Z79.01 Long term (current) use of anticoagulants
CPT/HCPCS: 36415; 85610

== ENCOUNTER 2019-09-16 01:56 | Outpatient (CLI) | payer OTHER, SELFPAY ==
[2019-09-16 10:30] LABS: Prothrombin Time 29.3 sec (9.3-11.0)
== END 2019-09-16 02:16 ==
PROVIDERS: PCP Family Medicine; Visit Provider Family Medicine
DX: I48.0 Paroxysmal atrial fibrillation (principal); Z79.01 Long term (current) use of anticoagulants
CPT/HCPCS: 36415; 85610

== ENCOUNTER 2019-09-30 01:16 | Outpatient (CLI) | payer OTHER, SELFPAY ==
[2019-09-30 11:44] LABS: Prothrombin Time 29.1 sec (9.3-11.0)
== END 2019-09-30 01:36 ==
PROVIDERS: PCP Family Medicine; Visit Provider Family Medicine
DX: I48.0 Paroxysmal atrial fibrillation (principal); Z79.01 Long term (current) use of anticoagulants
CPT/HCPCS: 36415; 85610

== ENCOUNTER 2019-10-27 03:08 | Outpatient (CLI) | payer OTHER, SELFPAY ==
[2019-10-27 14:43] LABS: INR 2.1 (0.9-1.1); Prothrombin Time 20.4 sec (9.3-11.0)
== END 2019-10-27 03:28 ==
PROVIDERS: PCP Family Medicine; Visit Provider Family Medicine
DX: I48.0 Paroxysmal atrial fibrillation (principal); Z79.01 Long term (current) use of anticoagulants
CPT/HCPCS: 36415; 85610

== ENCOUNTER 2019-11-04 11:00 | Outpatient (CLI) | payer OTHER, SELFPAY ==
--- NOTE | 2019-11-04 11:30 | DI.RAD_ITS ---
EXAM: XR SHOULDER RT COMPLETE 2+V INDICATION: PAIN. COMPARISON: No exams were available for comparison TECHNIQUE: 2D digital imaging was performed. FINDINGS: There is spurring at the AC joint and inferior glenoid. The glenohumeral joint space is well maintai rosalind. There are a few calcifications seen above the humeral head which could indicate calcific tendin itis or bursitis. IMPRESSION: Degenerative changes and question of calcific tendinitis or bursitis. DATA REPOSITORY: RADIATION DOSE DELIVERED:
== END 2019-11-04 11:20 ==
PROVIDERS: PCP Family Medicine; Referring Provider Family Medicine; Visit Provider Student in an Organized Health Care Education/Training Program
DX: M25.511 Pain in right shoulder (principal); M75.91 Shoulder lesion, unspecified, right shoulder; M17.12 Unilateral primary osteoarthritis, left knee; M17.11 Unilateral primary osteoarthritis, right knee; M75.81 Other shoulder lesions, right shoulder
CPT/HCPCS: 20610; 99214; 73030; J1040; J7325

== ENCOUNTER 2019-11-17 03:00 | Outpatient (CLI) | payer OTHER, SELFPAY ==
[2019-11-17 11:25] LABS: INR 1.8 (0.9-1.1); Prothrombin Time 17.4 sec (9.3-11.0)
== END 2019-11-17 03:20 ==
PROVIDERS: PCP Family Medicine; Visit Provider Family Medicine
DX: I48.0 Paroxysmal atrial fibrillation (principal); Z79.01 Long term (current) use of anticoagulants
CPT/HCPCS: 36415; 85610

== ENCOUNTER 2019-12-01 02:24 | Outpatient (CLI) | payer OTHER, SELFPAY ==
[2019-12-01 11:00] LABS: INR 1.9 (0.9-1.1); Prothrombin Time 19.2 sec (9.3-11.0)
== END 2019-12-01 02:44 ==
PROVIDERS: PCP Family Medicine; Visit Provider Family Medicine
DX: I48.0 Paroxysmal atrial fibrillation (principal); Z79.01 Long term (current) use of anticoagulants
CPT/HCPCS: 36415; 85610

== ENCOUNTER 2019-12-14 16:33 | Outpatient (REF) | payer OTHER, SELFPAY ==
[2019-12-17 09:19] LABS: SARS-CoV-2 RNA Undetected (Undetected); SARS-CoV-2 Specimen Source Nasopharynx
== END 2019-12-14 16:53 ==
LOC: NCHCN 16:33
PROVIDERS: PCP Family Medicine; Visit Provider Physician Assistant
DX: J06.9 Acute upper respiratory infection, unspecified (principal)
CPT/HCPCS: U0003

== ENCOUNTER 2019-12-19 10:04 | Outpatient (CLI) | payer OTHER, SELFPAY ==
[2019-12-19 17:00] LABS: INR 5.3 (0.9-1.1)
== END 2019-12-19 10:24 ==
PROVIDERS: PCP Family Medicine; Visit Provider Family Medicine
DX: I48.0 Paroxysmal atrial fibrillation (principal); Z79.01 Long term (current) use of anticoagulants
CPT/HCPCS: 36415; 85610

== ENCOUNTER 2020-01-06 11:14 | Outpatient (REF) | payer OTHER, SELFPAY ==
[2020-01-06 18:57] LABS: HCT 38.5 % (36.0-46.0); HGB 11.9 g/dL (12.0-15.5); Mean Corp. HGB Concentration 30.9 g/dL (32.0-36.0); Mean Corpuscular Volume 103.5 fL (80-95); Mean Platelet Volume 10.1 fL (8.0-11.0); Platelet Count 265 x1000/uL (130-400); RBC 3.72 m/cumm (4.00-5.20); RBC Distribution Width 14.7 % (11.7-14.6); White Blood Cell Count 4.96 k/cumm (4.4-10.8)
[2020-01-06 19:13] LABS: ALT 22 U/L (14-59); AST 24 U/L (15-37); Albumin 2.9 g/dL (3.4-5.0); Alkaline Phosphatase 134 U/L (46-116); Anion Gap 4.6 mmol/L (3-11); BUN 11 mg/dL (7-18); Bilirubin, Total 0.4 mg/dL (0.2-1.0); CO2 31.4 mmol/L (21.0-32.0); CREATININE 0.75 mg/dL (0.55-1.02); Calcium 8.7 mg/dL (8.5-10.1); Chloride 104 mmol/L (98-107); Glucose 99 mg/dL (74-106); Potassium 4.4 mmol/L (3.5-5.1); Sodium 140 mmol/L (136-145); Total Protein 7.1 g/dL (6.4-8.2)
== END 2020-01-06 11:34 ==
LOC: NCHCN 11:14
PROVIDERS: PCP Family Medicine; Visit Provider Family Medicine
DX: I50.9 Heart failure, unspecified (principal); E03.9 Hypothyroidism, unspecified; I10 Essential (primary) hypertension; Z79.899 Other long term (current) drug therapy
CPT/HCPCS: 80053; 85027; 83735; 84443

== ENCOUNTER 2020-01-31 15:39 | Outpatient (REF) | payer OTHER, SELFPAY ==
[2020-01-31 19:18] LABS: HCT 37.2 % (36.0-46.0); HGB 12.1 g/dL (12.0-15.5); Mean Corp. HGB Concentration 32.5 g/dL (32.0-36.0); Mean Corpuscular Hemoglobin 33.3 pg (27.0-33.0); Mean Corpuscular Volume 102.5 fL (80-95); Mean Platelet Volume 10.5 fL (8.0-11.0); Platelet Count 237 x1000/uL (130-400); RBC 3.63 m/cumm (4.00-5.20); RBC Distribution Width 14.4 % (11.7-14.6); White Blood Cell Count 4.72 k/cumm (4.4-10.8)
[2020-01-31 19:31] LABS: Anion Gap 7.7 mmol/L (3-11); BUN 14 mg/dL (7-18); CO2 30.3 mmol/L (21.0-32.0); Calcium 8.7 mg/dL (8.5-10.1); Chloride 105 mmol/L (98-107); Glucose 92 mg/dL (74-106); Potassium 4.3 mmol/L (3.5-5.1); Sodium 143 mmol/L (136-145)
== END 2020-01-31 15:59 ==
LOC: NCHCN 15:39
PROVIDERS: PCP Family Medicine; Visit Provider Family Medicine
DX: I10 Essential (primary) hypertension (principal); R60.0 Localized edema; I48.0 Paroxysmal atrial fibrillation; Z86.2 Personal history of diseases of the blood and blood-forming organs and certain disorders involving the immune mechanism
CPT/HCPCS: 80048; 85027

== ENCOUNTER 2020-05-11 11:19 | Outpatient (CLI) | payer OTHER, SELFPAY ==
--- NOTE | 2020-05-11 10:45 | DI.RAD_ITS ---
EXAM: XR STANDING ALIGNMENT CLINICAL HISTORY: OA right knee TECHNIQUE: COMPARISON: No exams were available for comparison FINDINGS: AP standing alignment views were obtained. There are mild degenerative changes of both hips. There are severe degenerative changes of the medial tibiofemoral joints bilaterally. There is chondrocalci nosis of the tibiofemoral joints bilaterally. IMPRESSION: RADIATION DOSE DELIVERED: Total DLP
== END 2020-05-11 11:39 ==
PROVIDERS: PCP Family Medicine; Referring Provider Family Medicine; Visit Provider Student in an Organized Health Care Education/Training Program
DX: M16.0 Bilateral primary osteoarthritis of hip; M17.12 Unilateral primary osteoarthritis, left knee; M17.11 Unilateral primary osteoarthritis, right knee; M25.511 Pain in right shoulder; I11.0 Hypertensive heart disease with heart failure; I50.9 Heart failure, unspecified; J44.9 Chronic obstructive pulmonary disease, unspecified; Z87.891 Personal history of nicotine dependence
CPT/HCPCS: 20610; 99213; 77073; J7325

== ENCOUNTER 2020-05-17 12:31 | Outpatient (REF) | payer OTHER, SELFPAY ==
[2020-05-17 18:57] LABS: HGB 11.7 g/dL (11.2-15.7); MCH 32.1 pg (27.0-33.0); MCHC 31.6 % (32.0-36.0); MCV 101.6 fL (80-95); MPV 10.5 fL (8.0-11.0); Platelet Count 236 10^3/uL (130-400); RBC 3.64 10^6/uL (3.93-5.22); RDW 13.3 % (11.7-14.6); RDW-SD 50.5 fL; WBC 4.99 10^3/uL (4.4-10.8)
[2020-05-17 19:17] LABS: ALT 16 U/L (14-59); AST 17 U/L (15-37); Alkaline Phosphatase 98 U/L (46-116); Anion Gap 5.9 mmol/L (3-11); BUN 16 mg/dL (7-18); Bilirubin, Total 0.5 mg/dL (0.2-1.0); CO2 31.1 mmol/L (21.0-32.0); CREATININE 0.86 mg/dL (0.55-1.02); Calcium 8.5 mg/dL (8.5-10.1); Chloride 105 mmol/L (98-107); Glucose 97 mg/dL (74-106); Potassium 3.8 mmol/L (3.5-5.1); Sodium 142 mmol/L (136-145); TSH (W/Ref FT4) 2.14 uIU/mL (0.36-3.74); Total Protein 6.6 g/dL (6.4-8.2)
[2020-05-18 13:54] LABS: Folate 16.2 ng/mL (8.6-20.0); Vitamin B12 250 pg/mL (193-986)
== END 2020-05-17 12:51 ==
LOC: NCHCN 12:31
PROVIDERS: PCP Family Medicine; Visit Provider Family Medicine
DX: E03.9 Hypothyroidism, unspecified (principal); I50.9 Heart failure, unspecified; J44.1 Chronic obstructive pulmonary disease with (acute) exacerbation; Z86.2 Personal history of diseases of the blood and blood-forming organs and certain disorders involving the immune mechanism; I48.0 Paroxysmal atrial fibrillation
CPT/HCPCS: 80053; 85027; 82607; 82746; 84443

== ENCOUNTER 2020-05-25 03:23 | Outpatient (CLI) | payer OTHER, SELFPAY ==
[2020-05-26 20:29] LABS: COVID-19 RT-PCR Result NEGATIVE (Negative)
== END 2020-05-25 03:43 ==
PROVIDERS: PCP Family Medicine; Visit Provider Student in an Organized Health Care Education/Training Program
DX: M17.0 Bilateral primary osteoarthritis of knee (principal)
CPT/HCPCS: U0003

== ENCOUNTER 2020-05-30 07:45 | Inpatient (IN) | payer OTHER, SELFPAY ==
[2020-05-30] VITALS (15 sets, daily range): BP systolic 150–219; BP diastolic 51–83; PULSE 40–54; RESP 10–22; TEMP 35.3–36.2; O2SAT 92–97
[2020-05-30 09:02] LABS: Prothrombin Time 10.5 sec (9.3-11.0)
[2020-05-30] MEDS: Acetaminophen 500 MG TAB 1000 MG PO ×3 (09:11→20:26)
[2020-05-30] MEDS: Celecoxib 200 MG CAP 400 MG PO (09:11)
[2020-05-30] MEDS: Lactated Ringers 1,000 ML 80 ML IV ×2 (09:29→15:23)
[2020-05-30] MEDS: ceFAZolin 2 GM/50 ML BAG IVPB (10:30)
[2020-05-30] MEDS: niCARdipine 25 MG/10 ML VIAL 250 MG IV (10:55)
[2020-05-30] MEDS: Ketorolac 30 MG/ML VIAL (11:06)
[2020-05-30] MEDS: Bupivacaine 0.25% Pres-Free 30 ML VIAL (11:07)
[2020-05-30] MEDS: Normal Saline 20 ML VIAL (11:09)
--- NOTE | 2020-05-30 12:37 | W.PM.OP ---
Date of service: 05/30/20 Time of Service: 12:37 Operative Note Operative Note DATE OF PROCEDURE: 05/30/20 PRE-OP DIAGNOSIS: Right Knee Osteoarthritis POST-OP DIAGNOSIS: same PROCEDURE: Right Total Knee Replacement SURGEON: Quan Valdez CONSTRUCTION PROJECT COORDINATOR: Ashwini Liu ANESTHESIA: GETA and regional ESTIMATED BLOOD LOSS: 400 PATHOLOGY: none sent TOURNIQUET TIME: 5 COMPLICATIONS: None Patient was transported to: PACU Patient's condition: stable Implants: 1. Depuy Attune Cruciate Retaining Femoral Component, Size 6 Narrow 2. Depuy Attune Rotating Platform Tibial Component, Size 4 3. Depuy Attune 6x5 CR,RP Poly 4. Depuy Attune Patellar Component, Size 38mm Indications: I have seen Celeste in clinic for symptoms of knee arthritis, confirmed with radiographic findings. She has exhausted nonoperative methods and was having significant limitations in daily function and desired better function and less pain. I discussed the technical details of a knee replacement. I explained the risks of the procedure to include, but not limited to, bleeding, infection, pain, stiffness, fracture, damage to nerves and vessels, damage to muscles and tendons, loosening, need for repeat procedure, blood clot and cardiopulmonary demise. Despite these risks, she elected to proceed. Findings: There was significant signs of arthritis throughout the knee. Procedure Description: Celeste was greeted in the preoperative holding area where the correct side was identified and marked. The consent was reviewed with the patient and signed. The history and physical was updated. All questions were answered. Preoperative mediacations were administered: Acetaminophen 1000mg, Celebrex 400mg, and Gabapentin 300mg. An adductor canal block was then administered by the anesthesia team in the PACU. Celeste was taken back to the operating room. A spinal anesthestic was attempted with good CSF flow but didn't provide lower extremity numbness. The patient was placed into the supine position on the operating room table. A nonsterile tourniquet was placed high onto the leg but only used for cementing. Posts were placed for positioning during the procedure. All bony prominences were well padded. Prophylactic antibiotics in the form of Cefazolin were administered. 1g of Tranxemic Acid was given intravenously within 30 minutes of incision. The right leg was then prepped with Chloraprep and draped in a standard fashion with impervious stockinette and extremity drape. A second prep with Chloraprep was performed prior to placing Ioband. A timeout to confirm correct identity, side and site, procedure, allergies, anesthesia, and medical concerns was performed. With the knee in some flexion, a midline incision was made overlying the knee. Full thickness skin flaps were raised once the extensor mechanism was encountered. These were raised medially and laterally. Any bleeding was controlled with electrocautery. Once the extensor mechanism was fully exposed, a medial parapatellar arthrotomy was performed in a flexed position. All bleeding from the arthrotomy and the geniculate arteries was coagulated. A medial subperiosteal peel was performed with electrocautery to the midcoronal plane. The fat pad was removed while keeping the patellar tendon protected. The anterior distal femur synovium was removed for later visualization. The ACL and PCL were resected and the anterior horn of the lateral meniscus was transected. The knee was then flexed with the patella everted. Large osteophytes from the tibia were removed. Using a step drill, and based on preoperative templating, the femoral canal was entered. This was done with a step drill without any difficulty. The intramedullary distal femoral cut guide was inserted, set to a 6 degree valgus cut and 10mm cut thickness. The distal femoral cut guide was then held in position and pinned. With the soft tissues protected, the distal cut was performed. This was passed over a few times to ensure a planar cut. I then turned attention to the tibia. The extramedullary guide was placed onto the leg. The distal aspect was slid medial to adjust for position of center of ankle and stay in line with shaft of the tibia. Approximately 3-5 degrees of posterior slope was kept in the proximal cutting guide. The center of the guide was aligned with the PCL. The stylus was used to assess cut thickness. The medial side, most involved side, was set for a 2mm cut. This was then held in position and pinned into place with 2 additional pins and a cross pin for stability. The medial and lateral collateral ligaments were protected and the cut was performed. With this completed, it was assessed and noted to be of appropriate dimensions. The guide was removed. A spacer block was inserted and the knee was brought into extension. The 5mm spacer block provided full extension, without hyperextension and with stability of both the medial and lateral collateral ligaments was assessed. The pins from the femur and the tibia were then removed. The distal femur was then sized. The anterior stylus was placed onto the lateral ridge of the anterior femur. This indicated a size 6narrow femur. The external rotation of the guide was adjusted to 0 degrees to match the epicondylar axis, perpendicular to Doris?s line. The 4-in-1 cutting guide was the placed. The posterior medial femur cut was evaluated and appeared of good thickness. The spacer block was inserted underneath the cutting guide and stability was confirmed in 90 degrees of flexion. An kirk wing was used to confirm appropriate position of the anterior cut to avoid notching. This cutting guide was ensured to be flush on the cut surface and then pinned into place with headed pins. While protecting the soft tissues, quad tendon, and collateral ligaments, the anterior and posterior cuts were performed with a saw. The central two pins were removed and the posterior and anterior chamfers were cut next. The notch-cutting guide was placed. This was pinned to lateralize the femoral component as much as possible while keeping it flush on the cut surface. This was then pinned into position. A reciprocating saw was used to make the small notch cut. A trial CR femoral component was then inserted, impacted down to the cut surfaces, and the lug holes were drilled. A provisional trial tibial component was placed and the knee was brought through range of motion. There was noted to be excellent extension and flexion. There was no significant instability. The patella was tracking without thumbs. The tibial cut surface was fully exposed. The medial and lateral menisci were removed. The tibia was then sized as a 4. The tibia had been previously marked during trialing to correspond to the center of the tibial component to help with rotation. The trial was aligned to this stew, approximately rotated to the medial 1/3rd of the tibial tubercle. The trial was pinned into place. The tibia was prepared with a reamer and a keel punch. The knee was then brought into extension and the patella was measured as 25mm. Using the patellar clamp and cut guide, this was resected to a flat surface with at least 13mm of thickness remaining. The size 38 patella fit the best. This was oriented and then clamped into position. The lugs were drilled. The trial components were removed. The final components, except for the polyethylene were opened on the back table. The periosteal and capsular tissues, especially posteriorly, around the knee were then systematically injected with a periarticular cocktail consisting of 50cc 0.25% Marcaine, 30mg Ketorolac, 20cc of Exparal and 50cc of injectable saline. The tourniquet was then inflated to 275mmHg. The knee was thoroughly irrigated with a pulse lavage and dried. However, the bleeding within the knee worsened and I was concerend about a venous tourniquet. I gave it some time but it continued so the tourniquet was deflated. On the back table, with the implants opened, the cement was mixed. 2 batches of antibiotic laden cement were prepared with vacuum assistance. After the cement was ready it was placed on to the back side of the tibial component. A small amount was placed onto the posterior flange of the femur. Cement was manual pressurized and impregnated into the cut surface of the tibia. The tibial component was then inserted into the cut surface and impacted into position. Excess cement was removed and the component was reimpacted. Again, excess cement was removed and our attention was then turned to the femur. The femoral cut surface was once again dried and cement was manually impacted into the cut surface. The femoral component was lined with the lug holes and impacted. Excess cement was removed. It was ensured to be down against the cut surface. The trial polyethylene was then inserted and the leg was brought out into full extension for the duration of the cement curing process, approximately 15min. Cement was lastly manually impacted into the cut surface of the patella and the patellar button was clamped into position and held. During this process attention was turned to the gutters of the knee and for all interfaces for any excess cement. While the cement was hardening, the knee was irrigated with Irrisept chlorhexadine solution. It was allowed to sit in the knee for 3 minutes. After the cement had finally cured, approximately 15min, the clamp was removed from the patella and the knee was taken through range of motion. A size 5mm polyethylene component provided the best range of motion and stability with less than 2mm gapping with medial and lateral stress and full extension without significant hyperextension. The patella was tracking with a no-thumbs technique. The trial poly was removed and once again the knee was checked for any loose, excess, or errant cement. The poly component was then inserted into position after cleaning and drying the tibial tray. The capsule was then reapproximated with a No. 1 Vicryl at multiple locations. The capsule was finally closed with a No. 2 Stratafix, barbed suture. The tourniquet was then released and the arthrotomy appeared watertight without significant bleeding. The second dosing of 1g TXA was started. Deep tissues were then reapproximated with 0 Vicryl and 2-0 Vicryl. The skin was closed with a running 3-0 Monocryl in a subcuticular fashion. This was reinforced with skin glue. A Mepilex silver dressing was applied along with a [id number] ELVIN wrap. A CryoCuff was applied. Celeste was transferred to the hospital bed without difficulty an suffering no apparent complication. Celeste has a good prognosis. Physical therapy will start today and without restrictions, weight-bearing as tolerated. Her home dosing of Coumadin will be used for DVT prophylaxis.
[2020-05-30] MEDS: fentaNYL 100 MCG/2 ML VIAL IVP ×3 (13:06→13:29)
--- NOTE | 2020-05-30 14:50 | IN_ITS ---
Date of service: 05/31/20 Time of Service: 14:50 PT Notes Visit Reasons: RIGHT TKA Physical Therapy Inpatient Initial Evaluation Date: 05/31/2020 Referring Doctor: Ashwini Liu MD PT Orders: PT CONSULT: Eval/Treat. Precautions: Fall. Standard. WBAT on R LE. Patient Profile/Admitting Diagnosis: Celeste is a 79-year-old female with primary unilateral osteoarthritis of the right knee status post right total knee arthroplasty on postoperative day 0. PMHX: Medical History AF (paroxysmal atrial fibrillation) (01/19/18) COPD (chronic obstructive pulmonary disease) Depression Edema H/O adenomatous polyp of colon Hypertension Hypothyroidism Morbid obesity Osteoarthritis Surgical History Abdominal hysterectomy H/O colonoscopy Social History/Home Situation: Lives with in a private home with a ramp to enter. She is independent with all ADLs using a walker outdoors and a single point cane indoors. Equipment Owned/DME: Front wheeled walker, SPC Subjective: Reports 4-5/10 in the left knee. Denies headache, chest pain, dizziness, and nausea throughout session. Objective: General Observation: Antithromboembolic pump onto L LE. TEDS on L LE. ELVIN wraps to R LE. Cryocuff to R LE. Mental Status: Alert and oriented x 4 Pain: 5-6/10 in the R knee Vital Signs: 219/83 mmHg and 49 bpm while seating at edge of bed before ambulation activity ROM: Right Upper Extremity: Shoulder Flexion WFL. Shoulder abduction WFL. Elbow flexion WFL. Wrist flexion WFL. Opening and closing of hand WFL. Left Upper Extremity: Shoulder Flexion WFL. Shoulder abduction WFL. Elbow flexion WFL. Wrist flexion WFL. Opening and closing of hand WFL. Right Lower Extremity: Hip flexion WFL. Hip abduction WFL. Knee flexion 30 degrees to 80 degrees. Knee extension 30 degrees. Ankle dorsiflexion WFL. Ankle plantarflexion WFL. Left Lower Extremity: Hip flexion WFL. Hip abduction WFL. Knee flexion WFL. Ankle dorsiflexion WFL. Ankle plantarflexion WFL. Strength: Right Upper Extremity: Shoulder flexors 4/5. Shoulder abductors 4/5. Elbow flexors 4/5. Elbow extensors 4/5. Industrial Engineering Technologist strong. Left Upper Extremity: Shoulder flexors 4/5. Shoulder abductors 4/5. Elbow flexors 4/5. Elbow extensors 4/5. Industrial Engineering Technologist strong. Right Lower Extremity: Hip flexors 4/5. Hip abductors 4/5. Knee flexors 3-/5. Knee extensors 3-/5. Ankle dorsiflexors 4/5. Ankle plantarflexors 4/5. Left Lower Extremity:Hip flexors 4/5. Hip abductors 4/5. Knee flexors 4/5. Knee extensors 4/5. Ankle dorsiflexors 4/5. Ankle plantarflexors 4/5. Sensation: Intact as to pain and pressure on bilateral lower extremities. Bed Mobility/Transfers: Supine to sit minimal assist to R LE with HOB at 30 degrees Sit to stand minimal assist minimal with cues needed for hand placement Stand to sit contact guard assist with cues needed for hand placement Bed to chair contact guard assist cues needed for hand placement and walking mechanics Gait: 15 feet using front wheeled walker with WBAT on the right LE requiring contact-guard assist with step to gait pattern, decreased jessie and complains of pain in the right knee and anterior thigh at 5?6/10. Balance: Static Sitting: Normal Dynamic Sitting: Good Static Standing: Fair Dynamic Standing: Fair Special Tests: Mobility Limitations Standardized Measure [facility]-P[facility] 6 clicks Basic Mobility Inpatient Short Form: Raw Score: 13 CMS Score: 65% deficit Informed Consent/Education: Patient instructed in purpose of PT consult and plan of care. Assessment: Celeste demonstrates significant functional mobility decline in physical distance and use of a front wheeled walker for all mobility ADL performance, difficulty with walking, unsteadiness of gait, activity tolerance, weakness of the right knee major muscle, and increased risk for falls due to postoperative status. Celeste is a 79-year-old female with primary unilateral osteoarthritis of the right knee status post right total knee arthroplasty on postoperative day 0. Patient presents with clinical signs and symptoms consistent with current/admitting diagnoses that have resulted to mobility limitations, gait instability, generalized weakness, and impairment of motor control as demonstrated by the following impairment level findings: 1. Decreased strength to right knee major muscle groups 2. Impaired standing balance 3. Impaired activity tolerance 4. Limitation of joint range of motion in right knee Impairments are contributing to the following functional limitations: 1. Dependent bed mobility skills 2. Increased dependence with transfers 3. Inability to safely ambulate without assistive device and physical assistance 4. Increase completion time for mobility ADL performance 5. Increased fall risk 6. Inability to negotiate steps alone safely Patient is assessed as a 56911 moderate complexity based on the following: History: 79-year-old female with impairment level findings, functional limitations, and past medical history as indicated above Examination: Demonstrable impairment in strength, balance, and mobility level with underlying impairments and functional limitations as documented above Presentation:Evolving Decision Makin moderate complexity Goals: Goals X 3 days 1. Supine-Sit independent 2. Sit-Supine independent 3. Sit-Stand independent 4. Stand-Sit independent 5. Bed-Chair supervision 6. Chair-Bed supervision 7. Supervision gait on level surface with use of least restrictive device for at least 300 feet without report of pain nor dyspnea 8. Independent with home exercise program 9. Good static and dynamic standing balance/tolerance Plan of Care/Treatment Plan: 1-2x/day x 3 days. Plan of care has been reviewed with the DISTRICT SALES COORDINATOR providing the service under Physical Therapy direction. Initiate Physical Therapy intervention for strengthening, bed mobility, transfers, gait, stairs, balance training, use of assistive device. DISCHARGE RECOMMENDATIONS: Patient will benefit from home health PT services in order to progress mobility level using least restrictive assistive ambulatory device, assess home safety, identify additional equipment needs, and establish a functional maintenance program that will increase ability of patient to remain at home. TREATMENT CODE/TIME: 01662 x 25 minutes, 59878 x 25 minutes beginning at 14:50 PM. Thank you for the opportunity to participate in the care of this patient. Matilda Elder PT, DPT, CLT [facility] [place], [place]
[2020-05-30] MEDS: oxyCODONE 5 MG TAB PO ×2 (15:02→20:24)
[2020-05-30] MEDS: Enoxaparin 40 MG/0.4 ML SYR SC (15:02)
--- NOTE | 2020-05-30 15:50 | RESPIRATORY ---
Patient's baseline is 3L O2 via nasal cannula with ambulation, 2L O2 via nasal cannula at rest. VAMSHI:
[2020-05-30] MEDS: Losartan 25 MG TAB 50 MG PO (16:38)
[2020-05-30] MEDS: ceFAZolin 1 GM/50 ML BAG IVPB (17:39)
[2020-05-30] MEDS: Furosemide 20 MG TAB PO (20:22)
[2020-05-30] MEDS: Pramipexole 0.25 MG TAB 0.125 MG PO (21:37)
[2020-05-30] MEDS: Famotidine 20 MG TAB PO (21:37)
[2020-05-30] MEDS: Gabapentin 300 MG CAP PO (21:37)
[2020-05-30] MEDS: Pramipexole 0.25 MG TAB PO (21:37)
[2020-05-31] MEDS: ceFAZolin 1 GM/50 ML BAG IVPB ×2 (02:08→09:58)
[2020-05-31 03:04] VITALS: BP 168/62; PULSE 49; RESP 17; TEMP 36.3; O2SAT 98
[2020-05-31] MEDS: Lactated Ringers 1,000 ML 80 ML IV (03:15)
[2020-05-31] MEDS: oxyCODONE 5 MG TAB PO (05:41)
[2020-05-31 06:58] LABS: Prothrombin Time 10.1 sec (9.3-11.0)
[2020-05-31 07:32] VITALS: BP 124/52; PULSE 52; RESP 14; TEMP 37; O2SAT 96
[2020-05-31 07:41] VITALS: O2SAT 96
[2020-05-31] MEDS: Metoprolol CR 100 MG TABCR 50 MG PO (08:04)
[2020-05-31] MEDS: Acetaminophen 500 MG TAB 1000 MG PO ×2 (08:04→14:34)
[2020-05-31] MEDS: Naproxen 375 MG TAB PO (08:05)
[2020-05-31] MEDS: Pantoprazole 40 MG TABCR PO (08:05)
[2020-05-31] MEDS: Mirabegron 25 MG TABCR PO (08:05)
[2020-05-31] MEDS: Losartan 50 MG TAB PO (08:05)
[2020-05-31] MEDS: Amiodarone 200 MG TAB PO (08:06)
[2020-05-31] MEDS: Furosemide 20 MG TAB PO (08:06)
[2020-05-31] MEDS: Normal Saline Flush 10 ML SYR IV (08:49)
[2020-05-31 09:48] VITALS: BP 141/67; PULSE 48; RESP 14; O2SAT 94
[2020-05-31] MEDS: traMADol 50 MG TAB PO (11:10)
[2020-05-31 11:15] VITALS: BP 158/60; PULSE 52; RESP 14; TEMP 36.4; O2SAT 96
--- NOTE | 2020-05-31 12:59 | PT.INDS ---
Date of service: 05/31/20 Time of Service: 13:59 PT Notes Visit Reasons: RIGHT TKA Physical Therapy Discharge Summary Date: 05/31/2020 Dates of Service: 05/30/2020 through 05/31/2020 Referring Doctor: Ashwini Liu MD PT Orders: PT CONSULT: Eval/Treat. Precautions: Fall. Standard. WBAT on R LE. Patient Profile/Admitting Diagnosis: Celeste is a 79-year-old female with primary unilateral osteoarthritis of the right knee status post right total knee arthroplasty on postoperative day 0. PMHX: Medical History AF (paroxysmal atrial fibrillation) (01/19/18) COPD (chronic obstructive pulmonary disease) Depression Edema H/O adenomatous polyp of colon Hypertension Hypothyroidism Morbid obesity Osteoarthritis Surgical History Abdominal hysterectomy H/O colonoscopy Social History/Home Situation: Lives with in a private home with a ramp to enter. She is independent with all ADLs using a walker outdoors and a single point cane indoors. Equipment Owned/DME: Front wheeled walker, SPC Subjective: Reports 5-6/10 in the left knee. Denies headache, chest pain, dizziness, and nausea throughout session. Objective: General Observation: TEDS on L LE. ELVIN wraps to R LE. Cryocuff to R LE. Mental Status: Alert and oriented x 4 Pain: 5-6/10 in the R knee ROM: Right Upper Extremity: Shoulder Flexion WFL. Shoulder abduction WFL. Elbow flexion WFL. Wrist flexion WFL. Opening and closing of hand WFL. Left Upper Extremity: Shoulder Flexion WFL. Shoulder abduction WFL. Elbow flexion WFL. Wrist flexion WFL. Opening and closing of hand WFL. Right Lower Extremity: Hip flexion WFL. Hip abduction WFL. Knee flexion 30 degrees to 80 degrees. Knee extension 30 degrees. Ankle dorsiflexion WFL. Ankle plantarflexion WFL. Left Lower Extremity: Hip flexion WFL. Hip abduction WFL. Knee flexion WFL. Ankle dorsiflexion WFL. Ankle plantarflexion WFL. Strength: Right Upper Extremity: Shoulder flexors 4/5. Shoulder abductors 4/5. Elbow flexors 4/5. Elbow extensors 4/5. Telephone Order Dispatcher strong. Left Upper Extremity: Shoulder flexors 4/5. Shoulder abductors 4/5. Elbow flexors 4/5. Elbow extensors 4/5. Telephone Order Dispatcher strong. Right Lower Extremity: Hip flexors 4/5. Hip abductors 4/5. Knee flexors 3-/5. Knee extensors 3-/5. Ankle dorsiflexors 4/5. Ankle plantarflexors 4/5. Left Lower Extremity:Hip flexors 4/5. Hip abductors 4/5. Knee flexors 4/5. Knee extensors 4/5. Ankle dorsiflexors 4/5. Ankle plantarflexors 4/5. Sensation: Intact as to pain and pressure on bilateral lower extremities. Bed Mobility/Transfers: Supine to sit stand by assist to R LE with HOB at 30 degrees Sit to stand stand by assist minimal with cues needed for hand placement Stand to sit stand by assist with cues needed for hand placement Bed to chair stand by assist cues needed for hand placement and walking mechanics THERA EX: Ankle pumps x 10, quads sets x 10, LAQs x 10 with good response. Gait: 100 feet + 150 feet using front wheeled walker with WBAT on the right LE requiring contact-guard assist with step through gait pattern, decreased jessie and complains of pain in the right knee and anterior thigh at 5?6/10. Balance: Static Sitting: Normal Dynamic Sitting: Good Static Standing: Fair Dynamic Standing: Fair Assessment: Celeste continues to demonstrate functional mobility decline functional mobility performance and use of a front wheeled walker for all mobility ADL performance, difficulty with walking, unsteadiness of gait, activity tolerance, weakness of the right knee major muscle, and increased risk for falls due to postoperative status. Celeste is a 79-year-old female with primary unilateral osteoarthritis of the right knee status post right total knee arthroplasty on postoperative day 1. Patient continues to present with clinical signs and symptoms consistent with current/admitting diagnoses that have resulted to mobility limitations, gait instability, generalized weakness, and impairment of motor control as demonstrated by the following impairment level findings: 1. Decreased strength to right knee major muscle groups 2. Impaired standing balance 3. Impaired activity tolerance 4. Limitation of joint range of motion in right knee Impairments are continuing to continuing to contributing to the following functional limitations: 1. Inability to safely ambulate without assistive device 2. Increase completion time for mobility ADL performance 3. Increased fall risk 4. Inability to negotiate steps alone safely Goals: Goals X 3 days 1. Supine-Sit independent NOT MET 2. Sit-Supine independent NOT MET 3. Sit-Stand independent NOT MET 4. Stand-Sit independent NOT MET 5. Bed-Chair supervision NOT MET 6. Chair-Bed supervision NOT MET 7. Supervision gait on level surface with use of least restrictive device for at least 300 feet without report of pain nor dyspnea NOT MET 8. Independent with home exercise program NOT MET 9. Good static and dynamic standing balance/tolerance NOT MET DISCHARGE RECOMMENDATIONS: Patient will benefit from home health PT services in order to progress mobility level using least restrictive assistive ambulatory device, assess home safety, identify additional equipment needs, and establish a functional maintenance program that will increase ability of patient to remain at home. TREATMENT CODE/TIME: Session 1-- 11715 x 51 minutes beginning at 8:49 AM. Session 2--22772 x 30 minutes, [id number] x 11 minutes beginning at 13:59 PM. Thank you for the opportunity to participate in the care of this patient. Matilda Elder PT, DPT, CLT [facility] [place], [place]
--- NOTE | 2020-05-31 14:00 | W.PM.DS.N ---
Documented by User: Ashwini Noe 05/30/20 10:25 DS: Diagnosis Discharge Diagnosis (1) Degenerative arthritis of right knee: Status: Chronic Discharge Plan Disposition Patient Disposition: HOME Condition: Good Discharge Details Reason For Visit: RIGHT TKA Admit Date/Time: 05/30/20 07:45 Admit Provider: Quan Valdez Attending Provider: Quan Valdez Primary Care Provider: Ginny Scherer V Hospital Course Hospital Course: Patient was admitted to the medical/surgical floor following the procedure. The surgery was tolerated well without any notable medical, surgical, or anesthetic complications. Mobilization began postoperatively. She was voiding spontaneously. Vitals were stable. Physical therapy worked with the patient and was cleared for discharge home. No acute medical issues. Pain was controlled on oral regimen. Home Meds and New Rx's Prescriptions: New acetaminophen 500 mg tablet 500 mg PO Q6H PRN (Reason: pain) Qty: 60 RF: 2 docusate sodium [Colace] 100 mg capsule 100 mg PO BID Qty: 30 RF: 0 naproxen 375 mg tablet 375 mg PO BID PRNQty: 60 RF: 2 oxycodone 5 mg tablet 5 mg PO Q6H PRN PRNQty: 12 RF: 0 Continued Myrbetriq 25 mg tablet extended release 24 hr 25 mg PO DAILY RF: 0 Trelegy Ellipta 100-62.5-25 mcg blister with device 1 inh IH DAILY RF: 0 levothyroxine [Levoxyl] 100 MCG tablet 100 mcg PO DAILY RF: 0 latanoprost 2.5 ML drops 1 drp Ophthalmic HS RF: 0 warfarin 2.5 MG tablet 2.5 mg PO DAILY RF: 0 citalopram [Celexa] 20 MG tablet 20 mg PO DAILY RF: 0 furosemide [Lasix] 20 MG tablet 20 mg PO BID RF: 0 nystatin (bulk) 1 EACH powder 1 ea Miscellaneous DAILY 30 Days Qty: 1 RF: 1 Trelegy Ellipta 100-62.5-25 mcg Blister With Device 1 inh INHALATION DAILY RF: 0 famotidine 20 mg Tablet 20 - 40 mg PO DAILY RF: 0 pramipexole 0.125 mg tablet 0.125 - 0.25 mg PO HS PRN (Reason: Restless Leg(S)) RF: 0 cyanocobalamin (vitamin B-12) [Vitamin B-12] 1,000 mcg tablet 1,000 mcg PO DAILY RF: 0 metoprolol succinate 50 mg tablet extended release 24 hr 50 mg PO BID RF: 0 amiodarone 200 mg tablet 200 mg PO DAILY RF: 0 losartan 100 mg tablet 100 mg PO DAILY RF: 0 enoxaparin 40 mg/0.4 mL Syringe 40 mg SUBCUT DAILY Qty: 7 RF: 0 Discontinued tramadol 50 mg tablet 50 mg PO BID PRNRF: 0 Perforomist 20 MCG/2 ML solution for nebulization 20 mcg Inhalation BID RF: 0 fluticasone propion-salmeterol [Advair Diskus] 1 EACH blister with device 1 puff Inhalation BID RF: 0 Discharge Instructions Additional Instructions: Total Knee Discharge Instructions Activity: The most important activity is to walk. You should try to take short walks a few times a day. It is important that when resting you work on keeping the knee straight. Avoid putting a pillow behind the knee as this will encourage flexion. Work on range of motion exercises as provided by Physical Therapy. - You should wear the TAMRA hose on both legs for 2 weeks. Dressing: Keep the surgical dressing in place for at least one week. After the first week it may be removed and replace with light gauze and tape or nothing. It may get wet after 3 days but avoid soaking the dressing. If it gets wet, just lightly pat dry. Medications: - You should take Tylenol (1000mg three times a day) and anti-inflammatory, Naproxen (375mg twice a day), as your primary pain control medications - You have been prescribed a stronger pain medication Oxycodone for breakthrough pain, take as needed as prescribed. If you feel like you don't need the Oxycodone you may take the Tramadol or a half of the Oxycodone tablet. - You should continue your stomach acid reduction agent, Famotidine, to help reduce stomach acid and reflux. - You will resume taking your warfarin as prescribed by your PCP. You will have to administer Enoxaparin (Lovenox) shots until your blood is thin enough, which will be monitored by your INR. Your PCP will manage this. - If you have constipation you should take Colace or Miralax (both [id number]). It takes most people 3-4 days to have a bowel movement. Follow-up: 2 weeks 1. Encounter Date and Reason I certify that CELESTE FLYNN was seen by Quan Valdez MD on 05/31/20 and that I had a [id number] encounter with this patient that meets the physician face to face encounter requirements. 2. Clinical Findings Supporting Skilled Need and Homebound Status I certify that home health services are medically necessary, include either intermittent long term and/or physical/speech therapy, and that this patient is homebound in that absences from the home require considerable and taxing effort and are infrequent or of short duration, or are attributable to the need to receive medical care. [X] (a) Attached documentation from encounter provides clinical findings supporting skilled need and homebound status (including what assistance patient requires to leave the home). The encounter with the patient was in whole, or in part, for the following medical condition, which is the primary reason for home health care: RIGHT TKA Mcc: Nursing would benefit Celeste to assist with her multiple medications after her surgery as well as management of post-operative return to Coumadin. Her baseline dose is 2.5mg which has been restarted but will need to use Lovenox until INR > 1.8 or as otherwise instructed by Dr. Valdez or PCP, Dr. Scherer. 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 She has significant motion restrictions as well as gait abnormality and weakness from the surgery and her pre-surgical deconditioning and obesity. She would benefit from PT to assist with restoring normal gait and motion and strength to the knee. Speech Therapy: Homebound: Celeste is unable to leave the house unassisted. She has significant limitations with gait and mobility. 3. Certification and Authentication I certify that I composed the above information based on my clinical judgement relating to this patient's medical condition and, if applicable, clinical findings communicated to me by the NPP or inpatient physician who performed the Home Health Referral. All further orders will be obtained through Dr. Valdez (orthopaedics) and Dr. Scherer (primary). Stand Alone Forms: Nursing Discharge Form Referrals: Quan Valdez MD [ [facility] STAFF PHYSICIAN] - 06/15/20 8:15 am Activity:: Activity as Tolerated Equipment/Supplies:: Walker Diet:: As Tolerated Discharge Orders Discharge Orders: Discharge Order (Routine); Ordered 05/31/20 Ordered By: Quan Valdez DS: Data Vitals/I&O Vitals and I&O: Vital Signs Respiratory Effort 05/28/20 14:24 Data Completed and Pending Labs on day of discharge: Labs from last 24 hours 05/30/20 07:22 PT Pending INR Pending [facility] Medical History AF (paroxysmal atrial fibrillation) (01/19/18) Cataracts, bilateral COPD (chronic obstructive pulmonary disease) Depression Edema H/O adenomatous polyp of colon History of cardioversion Hypertension Hypothyroidism Morbid obesity Osteoarthritis Tendonitis surgery r arm Surgical History Abdominal hysterectomy H/O colonoscopy x2 H/O: hysterectomy History of carpal tunnel release r wrist Family History Other Heart disease Social History Smoking/Tobacco Use Status: Former Tobacco Use Alcohol Intake: former Drug use: Never Substance use type: does not use Current gender identity: female Do you feel safe at home: Yes Do you feel safe in your relationship?: Yes Documented by User: Quan Valdez MD 05/31/20 14:44 Date of service: 05/31/20 Time of Service: 12:34 Discharge Plan Disposition Patient Disposition: HOME Condition: Good Discharge Details Reason For Visit: RIGHT TKA Admit Date/Time: 05/30/20 07:45 Admit Provider: Quan Valdez Attending Provider: Quan Valdez Primary Care Provider: Ginny Scherer V Hospital Course Hospital Course: Patient was admitted to the medical/surgical floor following the procedure. The surgery was tolerated well without any notable medical, surgical, or anesthetic complications. Mobilization began postoperatively. She was voiding spontaneously. Vitals were stable. Physical therapy worked with the patient and was cleared for discharge home. No acute medical issues. Pain was controlled on oral regimen. Home Meds and New Rx's Prescriptions: New acetaminophen 500 mg tablet 500 mg PO Q6H PRN (Reason: pain) Qty: 60 RF: 2 docusate sodium [Colace] 100 mg capsule 100 mg PO BID Qty: 30 RF: 0 naproxen 375 mg tablet 375 mg PO BID PRNQty: 60 RF: 2 oxycodone 5 mg tablet 5 mg PO Q6H PRN PRNQty: 12 RF: 0 Continued Myrbetriq 25 mg tablet extended release 24 hr 25 mg PO DAILY RF: 0 Trelegy Ellipta 100-62.5-25 mcg blister with device 1 inh IH DAILY RF: 0 levothyroxine [Levoxyl] 100 MCG tablet 100 mcg PO DAILY RF: 0 latanoprost 2.5 ML drops 1 drp Ophthalmic HS RF: 0 warfarin 2.5 MG tablet 2.5 mg PO DAILY RF: 0 citalopram [Celexa] 20 MG tablet 20 mg PO DAILY RF: 0 furosemide [Lasix] 20 MG tablet 20 mg PO BID RF: 0 nystatin (bulk) 1 EACH powder 1 ea Miscellaneous DAILY 30 Days Qty: 1 RF: 1 Trelegy Ellipta 100-62.5-25 mcg Blister With Device 1 inh INHALATION DAILY RF: 0 famotidine 20 mg Tablet 20 - 40 mg PO DAILY RF: 0 pramipexole 0.125 mg tablet 0.125 - 0.25 mg PO HS PRN (Reason: Restless Leg(S)) RF: 0 cyanocobalamin (vitamin B-12) [Vitamin B-12] 1,000 mcg tablet 1,000 mcg PO DAILY RF: 0 metoprolol succinate 50 mg tablet extended release 24 hr 50 mg PO BID RF: 0 amiodarone 200 mg tablet 200 mg PO DAILY RF: 0 losartan 100 mg tablet 100 mg PO DAILY RF: 0 enoxaparin 40 mg/0.4 mL Syringe 40 mg SUBCUT DAILY Qty: 7 RF: 0 Discontinued tramadol 50 mg tablet 50 mg PO BID PRNRF: 0 Perforomist 20 MCG/2 ML solution for nebulization 20 mcg Inhalation BID RF: 0 fluticasone propion-salmeterol [Advair Diskus] 1 EACH blister with device 1 puff Inhalation BID RF: 0 Discharge Instructions Additional Instructions: Total Knee Discharge Instructions Activity: The most important activity is to walk. You should try to take short walks a few times a day. It is important that when resting you work on keeping the knee straight. Avoid putting a pillow behind the knee as this will encourage flexion. Work on range of motion exercises as provided by Physical Therapy. - You should wear the TAMRA hose on both legs for 2 weeks. Dressing: Keep the surgical dressing in place for at least one week. After the first week it may be removed and replace with light gauze and tape or nothing. It may get wet after 3 days but avoid soaking the dressing. If it gets wet, just lightly pat dry. Medications: - You should take Tylenol (1000mg three times a day) and anti-inflammatory, Naproxen (375mg twice a day), as your primary pain control medications - You have been prescribed a stronger pain medication Oxycodone for breakthrough pain, take as needed as prescribed. If you feel like you don't need the Oxycodone you may take the Tramadol or a half of the Oxycodone tablet. - You should continue your stomach acid reduction agent, Famotidine, to help reduce stomach acid and reflux. - You will resume taking your warfarin as prescribed by your PCP. You will have to administer Enoxaparin (Lovenox) shots until your blood is thin enough, which will be monitored by your INR. Your PCP will manage this. - If you have constipation you should take Colace or Miralax (both [id number]). It takes most people 3-4 days to have a bowel movement. Follow-up: 2 weeks 1. Encounter Date and Reason I certify that CELESTE FLYNN was seen by Quan Valdez MD on 05/31/20 and that I had a [id number] encounter with this patient that meets the physician face to face encounter requirements. 2. Clinical Findings Supporting Skilled Need and Homebound Status I certify that home health services are medically necessary, include either intermittent long term and/or physical/speech therapy, and that this patient is homebound in that absences from the home require considerable and taxing effort and are infrequent or of short duration, or are attributable to the need to receive medical care. [X] (a) Attached documentation from encounter provides clinical findings supporting skilled need and homebound status (including what assistance patient requires to leave the home). The encounter with the patient was in whole, or in part, for the following medical condition, which is the primary reason for home health care: RIGHT TKA Mcc: Nursing would benefit Celeste to assist with her multiple medications after her surgery as well as management of post-operative return to Coumadin. Her baseline dose is 2.5mg which has been restarted but will need to use Lovenox until INR > 1.8 or as otherwise instructed by Dr. Valdez or PCP, Dr. Scherer. 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 She has significant motion restrictions as well as gait abnormality and weakness from the surgery and her pre-surgical deconditioning and obesity. She would benefit from PT to assist with restoring normal gait and motion and strength to the knee. Speech Therapy: Homebound: Celeste is unable to leave the house unassisted. She has significant limitations with gait and mobility. 3. Certification and Authentication I certify that I composed the above information based on my clinical judgement relating to this patient's medical condition and, if applicable, clinical findings communicated to me by the NPP or inpatient physician who performed the Home Health Referral. All further orders will be obtained through Dr. Valdez (orthopaedics) and Dr. Scherer (primary). Stand Alone Forms: Nursing Discharge Form Referrals: Quan Valdez MD [ [facility] STAFF PHYSICIAN] - 06/15/20 8:15 am Activity:: Activity as Tolerated Equipment/Supplies:: Walker Diet:: As Tolerated Discharge Orders Discharge Orders: Discharge Order (Routine); Ordered 05/31/20 Ordered By: Quan Valdez DS: Summary Status at Discharge Functional status at discharge: uses cane/walker Overall status at discharge: patient is progressing back to baseline Mental Status: mental status grossly normal Speech and Movement: speech and movement normal Mood: congruent mood Affect: normal affect Exam Narrative Exam Narrative: Sitting up in a chair. Right knee dressing is clean dry and intact. She is able to straight leg raise with some pain. Sensation intact light touch over the deep and superficial peroneal nerve and tibial nerve. The foot is warm and well-perfused with a palpable DP pulse. Psych Mental Status: mental status grossly normal Speech and Movement: speech and movement normal Mood: congruent mood Affect: normal affect [facility] Medical History AF (paroxysmal atrial fibrillation) (01/19/18) Cataracts, bilateral COPD (chronic obstructive pulmonary disease) Depression Edema H/O adenomatous polyp of colon History of cardioversion Hypertension Hypothyroidism Morbid obesity Osteoarthritis Tendonitis surgery r arm Surgical History Abdominal hysterectomy H/O colonoscopy x2 H/O: hysterectomy History of carpal tunnel release r wrist Family History Other Heart disease Social History Smoking/Tobacco Use Status: Former Tobacco Use Alcohol Intake: former Drug use: Never Substance use type: does not use Current gender identity: female Do you feel safe at home: Yes Do you feel safe in your relationship?: Yes
[2020-05-31] MEDS: Enoxaparin 40 MG/0.4 ML SYR SC (14:34)
--- NOTE | 2020-05-31 15:28 | PDOC.CMPRO ---
Care Management Progress Note Celeste was preparing for discharge. Dr. Valdez completed orders for RN: medication management, PT: mobilization and INR checks; CM faxed referral notification to [facility]. CM also requested PT support Celeste in getting into her 's truck upon discharge. Celeste will follow up with Dr. Valdez, her PCP and plan of care as prescribed. She will transport home via private vehicle with her .
--- NOTE | 2020-06-01 09:42 | PDOC.CMPRO ---
- If Service Date Differs Date of service: 06/01/20 Time of Service: 09:42 Care Management Progress Note Celeste calls the hospital this morning, hoping to get a hospital bed delivered to her home. Celeste reports her knee is quite swollen, she is in a lot of pain, and she is having difficulty getting in and out of bed because her bed is low to the ground and she has nothing she can hold on to and pull herself up out of bed with. She then shares she has not picked up her pain medication yet, but states her is gone to the pharmacy to get the prescription and should be back with the medication soon. CORINA discusses with her that she can rent a bed through [employer] or can purchase one through [employer] and have her insurance billed. Celeste reports she cannot afford to buy or rent a bed. CM encourages Celeste to contact Dr. Valdez's office to make him aware of the swelling and the pain. also leaves a message for Dr. Valdez to ensure he connects with Celeste.
== END 2020-05-31 16:01 | disposition home or self-care (01) | DRG 470 ==
LOC: PDS 08:18 → MS 14:25 → PDS 15:04 → MS 15:04
PROVIDERS: Admitting Provider Student in an Organized Health Care Education/Training Program; PCP Family Medicine; Visit Provider Student in an Organized Health Care Education/Training Program
PROC: 0SRC0J9 Replacement of Right Knee Joint with Synthetic Substitute, Cemented, Open Approach (ICD-10-PCS; CPT 27447; principal; 2020-05-30 10:45)
DX: M17.11 Unilateral primary osteoarthritis, right knee (principal); M25.561 Pain in right knee; Z96.651 Presence of right artificial knee joint; G89.18 Other acute postprocedural pain; Z79.01 Long term (current) use of anticoagulants; E03.9 Hypothyroidism, unspecified; I10 Essential (primary) hypertension; I48.91 Unspecified atrial fibrillation
CPT/HCPCS: 27447; 36415; 76942; 80048; 85027; 97110; 97162; 97530; J1650; NC; 85610; J0690; J1100; J1885; J2405; J3010; J3490

== ENCOUNTER 2020-06-04 14:57 | Outpatient (REF) | payer OTHER, SELFPAY ==
[2020-06-04 15:27] LABS: INR 0.9 (0.9-1.1); Prothrombin Time 9.3 sec (9.3-11.0)
== END 2020-06-04 15:17 ==
LOC: NCHCN 14:57
PROVIDERS: PCP Family Medicine; Visit Provider Family Medicine
DX: Z51.81 Encounter for therapeutic drug level monitoring (principal); Z79.01 Long term (current) use of anticoagulants; Z96.651 Presence of right artificial knee joint
CPT/HCPCS: 85610

== ENCOUNTER 2020-06-07 12:48 | Outpatient (REF) | payer OTHER, SELFPAY ==
[2020-06-07 13:39] LABS: INR 1.3 (0.9-1.1); Prothrombin Time 12.6 sec (9.3-11.0)
== END 2020-06-07 13:08 ==
LOC: LBO 12:48
PROVIDERS: PCP Family Medicine; Visit Provider Student in an Organized Health Care Education/Training Program
DX: I48.20 Chronic atrial fibrillation, unspecified (principal); Z79.01 Long term (current) use of anticoagulants
CPT/HCPCS: 85610

== ENCOUNTER 2020-06-11 12:52 | Outpatient (REF) | payer OTHER, SELFPAY ==
[2020-06-11 14:13] LABS: INR 3.5 (0.9-1.1); Prothrombin Time 33.8 sec (9.3-11.0)
== END 2020-06-11 13:12 ==
LOC: LBN 12:52
PROVIDERS: PCP Family Medicine; Visit Provider Student in an Organized Health Care Education/Training Program
DX: I48.20 Chronic atrial fibrillation, unspecified (principal); Z79.01 Long term (current) use of anticoagulants
CPT/HCPCS: 85610

== ENCOUNTER 2020-06-11 14:35 | Outpatient (CLI) | payer OTHER, SELFPAY ==
--- NOTE | 2020-06-11 14:30 | DI.RAD_ITS ---
EXAM: XR KNEE RT 2V AP,LAT INDICATION: f/u R TKA. COMPARISON: CR XR knee RT 3V AP,lat,royal from 03/02/2019 CR XR STANDING ALIGNMENT from 05/11/2020 TECHNIQUE: 2D digital imaging was performed. FINDINGS: A right knee prosthesis is seen. The components appear well aligned. There are no abnormal bony samantha encies or gross evidence of a joint effusion. DATA REPOSITORY: RADIATION DOSE DELIVERED:
== END 2020-06-11 14:55 ==
PROVIDERS: PCP Family Medicine; Referring Provider Family Medicine; Visit Provider Student in an Organized Health Care Education/Training Program
DX: Z96.651 Presence of right artificial knee joint (principal); Z47.1 Aftercare following joint replacement surgery; I10 Essential (primary) hypertension; J44.9 Chronic obstructive pulmonary disease, unspecified
CPT/HCPCS: 73560

== ENCOUNTER → 2020-06-29 09:40 | Outpatient (BNVA) | payer OTHER, SELFPAY | PROVIDERS: PCP Family Medicine; Referring Provider Family Medicine; Visit Provider Student in an Organized Health Care Education/Training Program | DX: Z96.651 Presence of right artificial knee joint (principal); Z47.1 Aftercare following joint replacement surgery ==

== ENCOUNTER 2020-07-12 17:46 | Emergency (ER) | payer OTHER, SELFPAY ==
[2020-07-12 17:49] VITALS: BP 142/57; PULSE 61; RESP 18; TEMP 36.4; O2SAT 98
--- NOTE | 2020-07-12 18:24 | ED.GENADUL_ITS ---
Discharge Plan Disposition Patient Disposition: HOME Condition: Improving Discharge Details Clinical Impression: Strain of left hip Primary Care Provider: Ginny Scherer V ED Provider: Yasmin Villeda Home Meds and New Rx's Prescriptions: New oxycodone 5 mg tablet 5 mg PO Q6H PRN (Reason: pain) Qty: 10 RF: 0 methocarbamol 500 mg tablet 500 mg PO Q6H PRN (Reason: muscle spasm) Qty: 14 RF: 0 Continued Myrbetriq 25 mg tablet extended release 24 hr 25 mg PO DAILY RF: 0 Trelegy Ellipta 100-62.5-25 mcg blister with device 1 inh IH DAILY RF: 0 tramadol 50 mg tablet 50 mg PO Q4H PRN (Reason: pain) Qty: 28 RF: 0 levothyroxine [Levoxyl] 100 MCG tablet 100 mcg PO DAILY RF: 0 latanoprost 2.5 ML drops 1 drp Ophthalmic HS RF: 0 warfarin 2.5 MG tablet 2.5 mg PO DAILY RF: 0 citalopram [Celexa] 20 MG tablet 20 mg PO DAILY RF: 0 furosemide [Lasix] 20 MG tablet 20 mg PO BID RF: 0 nystatin (bulk) 1 EACH powder 1 ea Miscellaneous DAILY 30 Days Qty: 1 RF: 1 cephalexin 500 mg capsule 500 mg PO TID Qty: 21 RF: 0 tizanidine 2 mg tablet 2 mg PO QHS PRN (Reason: muscle spasticity) Qty: 14 RF: 0 Trelegy Ellipta 100-62.5-25 mcg Blister With Device 1 inh INHALATION DAILY RF: 0 famotidine 20 mg Tablet 20 - 40 mg PO DAILY RF: 0 acetaminophen 500 mg tablet 500 mg PO Q6H PRN (Reason: pain) Qty: 60 RF: 2 docusate sodium [Colace] 100 mg capsule 100 mg PO BID Qty: 30 RF: 0 naproxen 375 mg tablet 375 mg PO BID PRNQty: 60 RF: 2 pramipexole 0.125 mg tablet 0.125 - 0.25 mg PO HS PRN (Reason: Restless Leg(S)) RF: 0 cyanocobalamin (vitamin B-12) [Vitamin B-12] 1,000 mcg tablet 1,000 mcg PO DAILY RF: 0 metoprolol succinate 50 mg tablet extended release 24 hr 50 mg PO BID RF: 0 amiodarone 200 mg tablet 200 mg PO DAILY RF: 0 losartan 100 mg tablet 100 mg PO DAILY RF: 0 oxycodone 5 mg tablet 5 mg PO Q6H PRN PRNQty: 12 RF: 0 enoxaparin 40 mg/0.4 mL Syringe 40 mg SUBCUT DAILY Qty: 7 RF: 0 Discharge Instructions Instructions: Muscle Strain (ED) Additional Instructions: Alternate ice and heat to the affected area(s) several times daily for 20 minutes at a time. Take Tylenol as needed and directed for pain. Take the oxycodone and methocarbamol as needed and directed for pain not relieved with Tylenol. Follow-up with your scheduled appointment with Dr. Valdez next month. You can call his office next week if your symptoms do not improve or worsen for an earlier appointment if needed. Return immediately to the emergency department if you develop any worsening or new concerning symptoms. Discharge Data Discharge Date/Time-TO BE ENTERED AT DEPARTURE: 07/12/20 20:01 Discharge Physician: Yasmin Villeda Medical Decision Making 79-year-old female who is 1 month status post right knee replacement with Dr. Valdez presents with left groin and hip pain after sensation of popping when getting into a truck this afternoon. She is able to ambulate with her walker but with pain. She called her PCP but would not refill her oxycodone and referred her to the ED. Patient denies direct fall onto left hip, fever or left lower leg pain. No evidence of trauma to her left hip or back. She has tenderness to palpation to her left anterior groin, left buttock and left lower back. No evidence of trauma or cellulitis and she is neurovascular intact. She was referred for left hip and pelvis x-ray which was negative for acute findings. Suspect muscle strain/spasm at this time. Patient was given oxycodone and Valium which improved her pain. Discussed with patient the possibility of obtaining a CT for further evaluation but as her pain is improved, will recommend weightbearing as tolerated with plan for pain control and follow-up with orthopedics. She was able to get into her wheelchair with assistance. She has an appointment with Dr. Valdez on July 26. Advised to return immediately to the ED if her symptoms do not improve or worsen for reevaluation and consideration for additional imaging. We will send home with oxycodone and methocarbamol. Usual and customary return precautions given prior to discharge. Medical Records Medical records reviewed: Yes I reviewed the patient's medical records. Imaging Data Radiologic Study: Radiologist's impression: XR Left Hip with Pelvis when Performed Exam date and time: 07/12/2020 7:22 PM Age: 79 years old Clinical indication: Injury or trauma; Other: Leg lift strain; Sprain or strain; Left; Hip; Injury date: 07/12/20; Injury details: PT heard and felt a pop when stepping up into a truck TECHNIQUE: Imaging protocol: XR Left hip with pelvis when performed. Views: 2 or 3 views. COMPARISON: No relevant prior studies available. FINDINGS: Tubes, catheters and devices: Surgical clips in the left groin. Atherosclerotic vascular calcifications. Bones/joints: No acute fracture or dislocation. Mild bilateral hip joint space narrowing. Degenerative changes in the lumbosacral spine. Soft tissues: Unremarkable. IMPRESSION: No acute fracture or dislocation. HPI General Mode of arrival: wheelchair . Date/Time Provider Initiated Documentation: 07/12/20 17:56 . Limitations to Documentation: no limitations . Information obtained by: patient . HPI Narrative: Patient is a 79-year-old female with a history of morbid obesity, atrial fibrillation on Coumadin, COPD, depression, hypertension, hypothyroidism and osteoarthritis with history of right total knee replacement on May 30, [address] Valdez who presents with sudden onset of left hip pain after feeling a pop in her left hip and groin while getting up and into a truck today. Patient states she has arthritis in her hips but had sudden onset of worsening pain than usual. Patient states she is able to ambulate but with increased pain in her left hip. She states the pain radiates from her left groin around the side of her hip and into her left lower buttock and back. Patient states she took oxycodone previously for her knee and ran out and was requesting additional oxycodone per her PCP office today for her hip but they advised her to come to the ER for further evaluation. Related Data Home Medications Medication Instructions Recorded Confirmed levothyroxine [Levoxyl] 100 mcg PO DAILY tab-cap NS 07/11/13 07/12/20 citalopram [Celexa] 20 mg PO DAILY tab-cap 01/19/18 07/12/20 furosemide [Lasix] 20 mg PO BID tab-cap 01/19/18 07/12/20 latanoprost 1 drp OPHTHALMIC HS drp 01/19/18 07/12/20 warfarin 2.5 mg PO DAILY tab-cap 01/19/18 07/12/20 nystatin (bulk) 1 ea MISCELLANEOUS DAILY 30 Days 02/05/18 07/12/20 #1 bottle Trelegy Ellipta 1 inh INHALATION DAILY 03/02/19 07/12/20 fluticasone fur. 100 mcg-umeclid 1 inh IH DAILY 05/11/20 07/12/20 62.5 mcg-vilant 25 mcg inhalat.powder mirabegron 25 mg tablet,extended 25 mg PO DAILY 05/11/20 07/12/20 release 24 hr famotidine 20 - 40 mg PO DAILY 05/28/20 07/12/20 acetaminophen 500 mg PO Q6H PRN #60 tab 05/30/20 07/12/20 amiodarone 200 mg PO DAILY 05/30/20 07/12/20 cyanocobalamin (vitamin B-12) 1,000 mcg PO DAILY 05/30/20 07/12/20 [Vitamin B-12] docusate sodium [Colace] 100 mg PO BID #30 cap 05/30/20 07/12/20 losartan 100 mg PO DAILY 05/30/20 07/12/20 metoprolol succinate 50 mg PO BID 05/30/20 07/12/20 naproxen 375 mg PO BID PRN #60 tab 05/30/20 07/12/20 pramipexole 0.125 - 0.25 mg PO HS PRN 05/30/20 07/12/20 enoxaparin 40 mg SUBCUT DAILY #7 syrg 05/31/20 07/12/20 oxycodone 5 mg PO Q6H PRN PRN #12 tab 05/31/20 07/12/20 tramadol 50 mg tablet 50 mg PO Q4H PRN #28 tab 06/11/20 07/12/20 cephalexin 500 mg capsule 500 mg PO TID #21 cap 06/18/20 07/12/20 tizanidine 2 mg tablet 2 mg PO QHS PRN #14 tab 06/28/20 07/12/20 methocarbamol 500 mg PO Q6H PRN #14 tab 07/12/20 oxycodone 5 mg PO Q6H PRN #10 tab 07/12/20 Previous Rx's Medication Instructions Recorded nystatin (bulk) 1 ea MISCELLANEOUS DAILY 30 Days 02/05/18 #1 bottle acetaminophen 500 mg PO Q6H PRN #60 tab 05/30/20 docusate sodium [Colace] 100 mg PO BID #30 cap 05/30/20 naproxen 375 mg PO BID PRN #60 tab 05/30/20 enoxaparin 40 mg SUBCUT DAILY #7 syrg 05/31/20 oxycodone 5 mg PO Q6H PRN PRN #12 tab 05/31/20 tramadol 50 mg tablet 50 mg PO Q4H PRN #28 tab 06/11/20 cephalexin 500 mg capsule 500 mg PO TID #21 cap 06/18/20 tizanidine 2 mg tablet 2 mg PO QHS PRN #14 tab 06/28/20 methocarbamol 500 mg PO Q6H PRN #14 tab 07/12/20 oxycodone 5 mg PO Q6H PRN #10 tab 07/12/20 Allergies Allergy/AdvReac Type Severity Reaction Status Date / Time adhesive Allergy Severe skin rash, Verified 07/12/20 17:57 blisters lisinopril Allergy Intermediate Verified 07/12/20 17:57 amoxicillin [Amoxicillin] Allergy Mild TINGLING Verified 07/12/20 17:57 oxybutynin Allergy Unknown PT CAN'T Verified 07/12/20 17:57 REMEMBER General Stated Complaint: Orthopedic CECILIA: 3 Review of Systems All systems reviewed & are unremarkable except as noted in HPI and below Constitutional Constitutional: Reports as per HPI, Denies chills and Denies fever(s) Eyes Eyes: Denies blurry vision ENT Ears, Nose, Mouth, and Throat: Denies dizziness, Denies sore throat and Denies throat swelling Cardiovascular Cardiovascular: Denies chest pain and Denies dyspnea Respiratory Respiratory: Denies cough and Denies dyspnea Gastrointestinal Gastrointestinal: Denies abdominal pain, Denies diarrhea and Denies vomiting Genitourinary Genitourinary: Denies hematuria and Denies dysuria Musculoskeletal Musculoskeletal: Denies back pain and Denies numbness Integumentary/Breasts Skin/Breast: Denies lesions and Denies rash Neurologic Neurologic: Denies dizziness, Denies localized weakness and Denies numbness Allergic/Immunologic Allergic/Immunologic: Denies throat swelling PFSH Medical History (Updated 07/12/20 @ 19:41 by Yasmin Villeda DO) AF (paroxysmal atrial fibrillation) (01/19/18) Cataracts, bilateral COPD (chronic obstructive pulmonary disease) Depression Edema H/O adenomatous polyp of colon History of cardioversion Hypertension Hypothyroidism Morbid obesity Osteoarthritis Tendonitis surgery r arm Surgical History (Updated 06/29/20 @ 17:19 by ABDULAZIZ Thacker) Abdominal hysterectomy H/O colonoscopy x2 H/O: hysterectomy History of carpal tunnel release r wrist Status post total right knee replacement (05/30/20) Family History Other Heart disease Social History Smoking/Tobacco Use Status: Former Tobacco Use Smoking risk assessment performed?: Yes Alcohol Intake: former Drug use: Never Substance use type: does not use Current gender identity: female Do you feel safe at home: Yes Do you feel safe in your relationship?: Yes Exam Const General: cooperative, healthy appearing and no acute distress HENMT Head: normal to inspection Mouth: oral mucosae normal Eyes General: appearance normal, both eyes and all related structures Neck Neck: normal visual inspection Resp Effort & Inspection: normal respiratory effort and able to speak in complete sentences Cardio Rate: regular rate Back/Spine/Pelvis Thoracic/Lumbar Spine: thoracic and lumbar spine normal to inspection and No lumbar spinal tenderness Sacroiliac joints: on the left tender to palpation Sacrum: no ecchymosis, no erythema, no swelling and tenderness on the left Skin General skin exam: no rashes or lesions noted Neuro General: patient alert, patient awake and patient oriented x3 Motor: muscle tone normal throughout Extrem Right lower extremity: foot Details: vascular exam Details: dorsalis pedis pulse present and posterior tibial pulse present Left lower extremity: hip/thigh Details: tenderness Location: of the hip Location: laterally and anteriorly (significantly tender in L anterior groin) and abnormal ROM Details: pain with active ROM Details: with ADduction, with ABduction, with extension and with external rotation and pain with passive ROM Details: with flexion and with external rotation; no swelling, no ecchymosis, no crepitus, no deformity and no unusual warmth and foot Details: vascular exam Details: dorsalis pedis pulse present and posterior tibial pulse present Psych Appearance: grossly normal Affect: normal affect Course Vital Signs Vital signs: Vital Signs Temperature 97.5 F L 07/12/20 17:49 Pulse 61 07/12/20 17:49 Respiratory Rate 18 07/12/20 17:49 Blood Pressure 142/57 H 07/12/20 17:49 Pulse Oximetry 98 07/12/20 17:49 Temperature 97.5 F L 07/12/20 17:49 Temperature Source Skin 07/12/20 17:49 Pulse 61 07/12/20 17:49 Respiratory Rate 18 07/12/20 17:49 Respiratory Effort 07/12/20 17:59 Blood Pressure 142/57 H 07/12/20 17:49 Blood Pressure Position Sitting 07/12/20 17:49 Pulse Oximetry 98 07/12/20 17:49 Oxygen Delivery Method Room Air 07/12/20 17:49 Oxygen Flow Rate 0 07/12/20 17:49 Pain Level 9 07/12/20 17:49 Comment prior rx for oxycodone 07/12/20 17:49
[2020-07-12 18:25] VITALS: O2SAT 98
[2020-07-12] MEDS: oxyCODONE 5 MG TAB PO (18:29)
[2020-07-12] MEDS: diazePAM 5 MG TAB PO (18:42)
--- NOTE | 2020-07-12 19:30 | DI.VRAD_ITS ---
PROCEDURE INFORMATION: Exam: XR Left Hip with Pelvis when Performed Exam date and time: 07/12/2020 7:22 PM Age: 79 years old Clinical indication: Injury or trauma; Other: Leg lift strain; Sprain or strain; Left; Hip; Injury date: 07/12/20; Injury details: PT heard and felt a pop when stepping up into a truck TECHNIQUE: Imaging protocol: XR Left hip with pelvis when performed. Views: 2 or 3 views. COMPARISON: No relevant prior studies available. FINDINGS: Tubes, catheters and devices: Surgical clips in the left groin. Atherosclerotic vascular calcifications. Bones/joints: No acute fracture or dislocation. Mild bilateral hip joint space narrowing. Degenerative changes in the lumbosacral spine. Soft tissues: Unremarkable. IMPRESSION: No acute fracture or dislocation. Dictated and Authenticated by: Nicki Duggan MD. Ordering:CALVIN Hoffman MD
--- NOTE | 2020-07-12 19:30 | DI.RAD_ITS ---
EXAM: XR HIP LT COMPLETE AP PELVIS CLINICAL HISTORY: felt a pop in L hip, r/o fx vs dislocation TECHNIQUE: COMPARISON: CR XR lumbar spine complete from 06/24/2018 FINDINGS: Multiple views were obtained. There are vascular clips overlying left inguinal region. There are mo derate degenerative changes of both hips. There is no evidence of acute fracture or dislocation. IMPRESSION: RADIATION DOSE DELIVERED: Total DLP
[2020-07-12 20:02] VITALS: BP 132/107; PULSE 53; RESP 18; O2SAT 100
[2020-07-12] MEDS: Methocarbamol 500 MG TAB 1000 MG PO (20:06)
== END 2020-07-12 20:01 | disposition home or self-care (01) ==
PROVIDERS: Emergency Provider Physician Assistant; PCP Family Medicine
DX: S76.012A Strain of muscle, fascia and tendon of left hip, initial encounter (principal); V58.4XXA Person boarding or alighting a pick-up truck or van injured in noncollision transport accident, initial encounter; Z96.651 Presence of right artificial knee joint; I10 Essential (primary) hypertension; J44.9 Chronic obstructive pulmonary disease, unspecified; Z87.891 Personal history of nicotine dependence
CPT/HCPCS: 99284; 73502

== ENCOUNTER → 2020-07-26 09:34 | Outpatient (BNVA) | payer OTHER, SELFPAY | PROVIDERS: PCP Family Medicine; Visit Provider Student in an Organized Health Care Education/Training Program | DX: Z96.651 Presence of right artificial knee joint (principal); Z47.1 Aftercare following joint replacement surgery; J44.9 Chronic obstructive pulmonary disease, unspecified; I10 Essential (primary) hypertension ==

== ENCOUNTER 2020-10-01 00:55 | Outpatient (CLI) | payer OTHER, SELFPAY ==
--- NOTE | 2020-10-01 | DI.MAMMO_ITS ---
EXAM: MG MAMMO SCREENING CLINICAL HISTORY: SCREENING, [facility],Z00.00 TECHNIQUE: Bilateral full field digital CC and MLO mammographic images were obtained with 3D tomosyn thesis and utilizing computer aided detection (CAD). COMPARISON: Available for comparison. FINDINGS: Masses/Architectural Distortion: No suspicious masses or areas of architectural distortion. Stable b ilateral breast nodules are present. Microcalcifications: No suspicious pleomorphic-type are seen. Skin Thickening/Nipple Retraction: None. IMPRESSION: 1. No significant interval change with no specific features of malignancy noted. 2. Unless there is more urgent need, screening mammography is recommended, as per [place] [employer] guidelines. BI-RADS Category 1 - Negative Breast Density - Category B - Scattered areas of fibroglandular density Breast density category C or D implies that the patient has dense breast tissue. Dense breast tissue is very common and is not abnormal but dense breast tissue can make it harder to find cancer on a ma mmogram. Also, dense breast tissue may increase their breast cancer risk. This information about the result of the mammogram report was provided to the patient to raise their awareness. Use this report when you speak with the patient about their risks for breast cancer, which includes their family hist ory. At that time, you may recommend for more screening tests (Ultrasound or MRI) as they might be us eful based on their risk. A negative radiographic report should not delay biopsy if a dominant or clinically suspicious mass is present. Up to ten percent of cancers are not identified on mammography. A negative report may reinforce clinical impression. Adenosis and dense breasts may obscure an underlying neoplasm. False positive reports average 6 to 10%. Patient will receive a letter notifying them of these results.
--- NOTE | 2020-10-01 11:34 | DI.RAD_ITS ---
EXAM: XR LUMBAR SPINE COMPLETE CLINICAL HISTORY: CHRONIC LOW BACK PAIN,M54.5. TECHNIQUE: 2D digital imaging was performed. COMPARISON: CR XR lumbar spine complete from 06/24/[address] CHEST PE CTA from 05/18/2019 FINDINGS: There are 5 lumbar type vertebral bodies. There is no spondylolysis or spondylolisthesis. Disc spac e narrowing is seen at L4-5 and L5-S1. There are endplate osteophytes throughout the lumbar spine. Degenerative changes of the facets are seen in the lower lumbar spine. No acute fracture or subluxat ion is present. Vacuum discs are seen at L2-3 through L5-S1. Calcification of the abdominal aorta i s noted. Calcifications are seen in the right upper quadrant of the abdomen suspicious for cholelith iasis. IMPRESSION: 1. Moderate degenerative changes in the lumbar spine. 2. Calcifications in the right upper quadrant of the abdomen suspicious for cholelithiasis. Ultrasou nd may be obtained for further evaluation. DATA REPOSITORY: RADIATION DOSE DELIVERED:
== END 2020-10-01 01:15 ==
PROVIDERS: PCP Family Medicine; Visit Provider Family Medicine
DX: M47.816 Spondylosis without myelopathy or radiculopathy, lumbar region (principal); I70.0 Atherosclerosis of aorta; R93.5 Abnormal findings on diagnostic imaging of other abdominal regions, including retroperitoneum; Z12.31 Encounter for screening mammogram for malignant neoplasm of breast; Z00.00 Encounter for general adult medical examination without abnormal findings; M25.561 Pain in right knee; Z96.651 Presence of right artificial knee joint; Z47.1 Aftercare following joint replacement surgery; G89.29 Other chronic pain; J44.9 Chronic obstructive pulmonary disease, unspecified; Z99.81 Dependence on supplemental oxygen; Z87.891 Personal history of nicotine dependence
CPT/HCPCS: 77063; 77067; 99213; 72110

== ENCOUNTER 2020-10-01 11:06 | Outpatient (CLI) | payer OTHER, SELFPAY ==
--- NOTE | 2020-10-01 10:15 | DI.RAD_ITS ---
EXAM: XR KNEE RT 1V CLINICAL HISTORY: tejas-patella pain after TKA. TECHNIQUE: 2D digital imaging was performed. COMPARISON: CR XR KNEE RT 2V AP,LAT from 06/11/2020 FINDINGS: Single sunrise view was obtained. There is mild lateral tilt of the patella. The patient has a righ t total knee replacement. The soft tissues are unremarkable. IMPRESSION: DATA REPOSITORY: RADIATION DOSE DELIVERED:
== END 2020-10-01 11:26 ==
PROVIDERS: PCP Family Medicine; Referring Provider Family Medicine; Visit Provider Student in an Organized Health Care Education/Training Program
DX: M25.561 Pain in right knee (principal); Z96.651 Presence of right artificial knee joint
CPT/HCPCS: 73560

== ENCOUNTER 2021-01-23 10:37 | Outpatient (REF) | payer OTHER, SELFPAY ==
[2021-01-23 17:03] LABS: ALT 21 U/L (14-59); AST 32 U/L (15-37); Albumin 3.1 g/dL (3.4-5.0); Alkaline Phosphatase 115 U/L (46-116); Anion Gap 8.2 mmol/L (3-11); BUN 18 mg/dL (7-18); Bilirubin, Total 0.6 mg/dL (0.2-1.0); CO2 28.8 mmol/L (21.0-32.0); CREATININE 0.9 mg/dL (0.55-1.02); Calcium 8.5 mg/dL (8.5-10.1); Chloride 106 mmol/L (98-107); Creatine Kinase 463 U/L (26-192); Glucose 106 mg/dL (74-106); Sodium 143 mmol/L (136-145); TSH 4.74 uIU/mL (0.36-3.74); Total Protein 7.1 g/dL (6.4-8.2)
[2021-01-24 12:50] LABS: FREE T4 1.28 ng/dL (0.76-1.46)
== END 2021-01-23 10:38 | disposition home or self-care (01) ==
LOC: NCHCN 10:37
PROVIDERS: PCP Family Medicine; Visit Provider Family Medicine
DX: E03.9 Hypothyroidism, unspecified (principal); D64.9 Anemia, unspecified; R06.00 Dyspnea, unspecified; I50.9 Heart failure, unspecified; Z79.01 Long term (current) use of anticoagulants
CPT/HCPCS: 80053; 82550; 84439; 84443

== ENCOUNTER 2021-08-13 15:40 | Outpatient (REF) | payer OTHER, SELFPAY ==
[2021-08-13 15:27] LABS: HCT 37.2 % (36.0-46.0); HGB 11.5 g/dL (11.2-15.7); MCH 31.3 pg (27.0-33.0); MCHC 30.9 % (32.0-36.0); MCV 101.4 fL (80-95); MPV 10.5 fL (8.0-11.0); Platelet Count 244 10^3/uL (130-400); RBC 3.67 10^6/uL (3.93-5.22); RDW 13.6 % (11.7-14.6); RDW-SD 50.9 fL; WBC 5.08 10^3/uL (4.4-10.8)
[2021-08-13 15:46] LABS: ALT 16 U/L (14-59); AST 16 U/L (15-37); Albumin 3.1 g/dL (3.4-5.0); Alkaline Phosphatase 121 U/L (46-116); Anion Gap 6.5 mmol/L (3-11); BUN 16 mg/dL (7-18); Bilirubin, Total 0.4 mg/dL (0.2-1.0); CO2 30.5 mmol/L (21.0-32.0); CREATININE 0.7 mg/dL (0.55-1.02); Calcium 8.5 mg/dL (8.5-10.1); Chloride 105 mmol/L (98-107); FREE T4 1.41 ng/dL (0.76-1.46); Glucose 91 mg/dL (74-106); Magnesium 1.8 mg/dL (1.8-2.4); Potassium 3.9 mmol/L (3.5-5.1); Sodium 142 mmol/L (136-145); Total Protein 6.8 g/dL (6.4-8.2)
[2021-08-13 16:21] LABS: Hemoglobin A1C 5.5 % (<5.7)
[2021-08-19 09:44] LABS: Folate 5.7 ng/mL (See Note)
== END 2021-08-13 15:41 | disposition home or self-care (01) ==
LOC: NCHCN 15:40
PROVIDERS: PCP Family Medicine; Visit Provider Family Medicine
DX: I10 Essential (primary) hypertension (principal); E03.9 Hypothyroidism, unspecified; I50.9 Heart failure, unspecified; J44.1 Chronic obstructive pulmonary disease with (acute) exacerbation
CPT/HCPCS: 80053; 85027; 82746; 83036; 83735; 84439

== ENCOUNTER 2021-10-24 06:10 | Inpatient (IN) | payer MEDICARE, SELFPAY ==
[2021-10-24] VITALS (38 sets, daily range): BP systolic 125–185; BP diastolic 75–121; PULSE 70–109; RESP 14–90; TEMP 36.1–36.6; O2SAT 91–100
--- NOTE | 2021-10-24 | DI.US_ITS ---
APPROVED REPORT EXAM: Comprehensive 2D, Doppler, and color-flow Echocardiogram Patient Location: In-Patient Room/Bed: [address] Exhibit Designer: Juana Franks RDCS (AE) Indications: Heart failure Other Information Study Quality: Fair. Technically limited study due to body habitus. Conclusion Mild concentric left ventricular hypertrophy. Estimated ejection fraction is 45 to 50%. Septum is a kinetic. The remainder of the left ventricle could not be accurately assessed Mildly dilated right ventricle. Moderately dilated right atrium Left atrium is normal in size Trileaflet aortic valve without stenosis or regurgitation Mild to moderate mitral annular calcification. Mild to moderate mitral regurgitation Normal tricuspid valve with moderate regurgitation. Estimated right ventricular systolic pressure is 36 mmHg Wall motion Left Ventricle The left ventricle is normal size. Left ventricular systolic function is mildly decreased. Left ventr icular systolic function is mildly decreased. Mild concentric left ventricular hypertrophy. . Septum is akinetic. The remainder of the LV wall motion could not be accurately assessed due to atrial fibri llation and dufw-ed-cfyc variation There is no ventricular septal defect visualized. LVEF is 45-50%. Right Ventricle Right ventricle appears mildly dilated Right ventricular systolic function is grossly normal. The RVS P is 36.0mmHg. Atria The left atrium size is normal. Right atrium is moderately dilated. The interatrial septum is intact with no evidence for an atrial septal defect. Aortic Valve The aortic valve is normal in structure. Aortic valve is trileaflet. There is no aortic valvular sten osis. No aortic regurgitation is present. Mitral Valve Mild to moderate mitral annular calcification. Mild mitral annular calcification. Mitral valve appear s rheumatic. Mitral valve leaflets appear myxomatous. Mitral valve leaflets are severely thickened. M itral valve leaflets are moderately thickened. Mitral valve leaflets are mildly thickened. Mitral sweetie ve leaflets are calcified. Mitral valve leaflets are thickened. Mitral valve leaflets have restricted excursion. Mitral valve leaflets open well. Mitral valve is not well visualized. Mitral valve is nor mal in structure. The mitral valve is normal in structure and function. There is systolic anterior mo tion of the mitral valve. The mitral valve chordae are thickened and/or calcified. There is mitral an nular calcification. No evidence of mitral valve stenosis. Mild to moderate mitral regurgitation. Tricuspid Valve The tricuspid valve is normal in structure. There is no tricuspid valve stenosis. Moderate tricuspid regurgitation. Pulmonic Valve The pulmonary valve is normal in structure. There is no pulmonic valvular stenosis. There is no pulmo jass valvular regurgitation. Great Vessels The aortic root is normal in size. The aortic root size is normal. The ascending aorta is normal in s ize. Ascending aorta is not well visualized. The ascending aorta size is normal. IVC is normal in siz e and collapses >50% with inspiration. Pericardium Prominent anterior epicardial fat pad is present. 2D Dimensions IVSD d PLAX 1.25 cm F: 0.6-1.0 LV Vol A2C d MOD 88.2 mL LVPW d PLAX 1.25 cm F: 0.6 - 1.0 LV Vol A4C d MOD 93.7 mL LVID d PLAX 5.04 cm F: 3.8 - 5.2 LA vol/ BSA A2C s A-L 15.6 mL/m2 LVDs 3.90 cm F: 2.2 - 3.5 LA vol/ BSA A4C s A-L 25.5 mL/m2 Ao Root d 2.76 cm F: 2.7 - 3.3 LA Vol/ BSA Biplane s A-L 20.4 mL/m2 RA Area A4C 21.42 cm2 LA Area A4C s MOD 19.61 cm2 RA Vol/ BSA A4C s A-L 27.1 mL/m2 LA Area A2C s MOD 15.03 cm2 Ao Asc Diam d 3.09 cm F: 2.3 - 3.1 LV EF A4C MOD 40.8 % LV EF Teichholz 44.0 % LV EF A2C MOD 45.4 % LVEF (Camargo's) 44.70 % F: 54 - 74 LV EF Biplane MOD 44.7 % LV Volume 68.39 mL F: 46 - 106 SV 41.96 mL LV Volume Index 31.37 mL/m2 F: 29 - 61 SV Index 19.19 mL/m2 LV Vol Biplane MOD 93.9 mL FS 21.80 % M-Mode TAPSE 2.21 cm (M/F) >1.7 LV Diastology MV E' medial 0.129 (>0.07 m/s) E/A Ratio 3.2 LV E/e MED 9.90 (<14) MV E Vmax 1.28 (0.4-1.3 m/s) MV E' lateral 0.120 (>0.1 m/s) MV A Vmax 0.40 (0.4-1.3 m/s) LV E/e LAT 10.65 (<14) MV E/A Ratio 3.13 MV E/E' medial 9.94 MV E/E' lateral 10.67 Aortic Valve LVOT Area 2.73 cm2 AoV Area Vmax 2.09 cm2 LVOT Vmax 0.89 m/s AoV Area/ BSA (Vmax) 0.95 cm2/m2 LVOT Mean Jose. 0.64 m/s KYLIE Mean Jose. 2.19 cm2 LVOT Peak Grad 3.2 mmHg KYLIE Mean Jose. Index 1.00 cm2/m2 LVOT Mean Grad 1.9 mmHg LVOT VTI 0.170 m LVOT Diam s 1.85 cm AoV Vmax 1.17 m/s Velocity Ratio 0.76 AoV Mean Jose. 0.80 m/s AoV Peak Grad 5.4 mmHg LVOT SV 46.56 mL AoV Mean Grad 2.9 mmHg AoV VTI 0.220 m AoV Area VTI 2.12 cm2 AoV Area/ BSA (VTI) 0.97 cm/m2 Mitral Valve MV DT 169 (160-240 msec) MR Vmax 5.67 m/s MV PHT 49 msec MR VTI 2.120 m MV Area PHT 4.49 cm2 MR Peak Grad 128.6 mmHg MV VTI 0.261 m MR Mean Grad 82.8 mmHg MV VTI Annulus 0.266 m MR PISA Radius 0.55 cm MV Area VTI 1.81 (4.0-6.0 cm2) MR EROA 0.12 cm2 MR Aliasing Velocity 0.35 m/s MR PISA 1.88 cm2 Pulmonary Valve PV Vmax 0.87 (0.5-1.5 m/s) RVOT Peak Gr. 1.10 mmHg PV Peak Grad 3.0 mmHg RVOT Mean Gr. 0.55 mmHg PV Mean Grad 1.5 mmHg RVOT VTI 0.113 m PV VTI 0.171 m RVOT Vmax 0.52 m/s Tricuspid Valve TR Peak Grad 32.9 mmHg TR Vmax 2.87 m/s RA Pressure 3.00 mmHg RVSP (TR) 36.0 mmHg
--- NOTE | 2021-10-24 06:56 | W.ED.GENAD ---
Discharge Plan Disposition Patient Disposition: [facility] INPATIENT Condition: Good Discharge Details Chief Complaint: SOB Clinical Impression: Acute exacerbation of CHF (congestive heart failure), Breath shortness, Chest pain, Noncompliance with medication regimen Primary Care Provider: Ginny Scherer V ED Provider: Desean Huizar Home Meds and New Rx's Prescriptions: No Action Myrbetriq 25 mg tablet extended release 24 hr 25 mg PO DAILY 0RF Trelegy Ellipta 100-62.5-25 mcg blister with device 1 inh IH DAILY 0RF tramadol 50 mg tablet 50 mg PO Q4H PRN (Reason: pain) Qty: 28 0RF levothyroxine [Levoxyl] 100 MCG tablet 100 mcg PO DAILY 0RF latanoprost 2.5 ML drops 1 drp Ophthalmic HS 0RF warfarin 2.5 MG tablet 2.5 mg PO DAILY 0RF Rx Instructions: 2.5 MG --- 5mg Pnl-Ghod-Cqnpi furosemide [Lasix] 20 MG tablet 20 mg PO BID 0RF nystatin (bulk) 1 EACH powder 1 ea Miscellaneous DAILY 30 Days Qty: 1 1RF tizanidine 2 mg tablet 2 mg PO QHS PRN (Reason: muscle spasticity) Qty: 14 0RF Trelegy Ellipta 100-62.5-25 mcg Blister With Device 1 inh INHALATION DAILY 0RF famotidine 20 mg Tablet 20 - 40 mg PO DAILY 0RF acetaminophen 500 mg tablet 500 mg PO Q6H PRN (Reason: pain) Qty: 60 2RF docusate sodium [Colace] 100 mg capsule 100 mg PO BID Qty: 30 0RF naproxen 375 mg tablet 375 mg PO BID PRNQty: 60 2RF pramipexole 0.125 mg tablet 0.125 - 0.25 mg PO HS PRN (Reason: Restless Leg(S)) 0RF Label Comments: TAKE 1 TO 2 TABLETS BY MOUTH AT BEDTIME IF NEEDED FOR RESTLESS LEGS cyanocobalamin (vitamin B-12) [Vitamin B-12] 1,000 mcg tablet 1,000 mcg PO DAILY 0RF Label Comments: TAKE 1 TABLET BY MOUTH ONCE DAILY metoprolol succinate 50 mg tablet extended release 24 hr 50 mg PO BID 0RF Label Comments: TAKE 1 TABLET BY MOUTH TWICE DAILY amiodarone 200 mg tablet 200 mg PO DAILY 0RF Label Comments: TAKE 1 TABLET BY MOUTH ONCE DAILY AFTER FIRST WEEK FOR MAINTENANCE losartan 100 mg tablet 50 mg PO BID 0RF Label Comments: TAKE 1 TABLET BY MOUTH ONCE DAILY methocarbamol 500 mg tablet 500 mg PO Q6H PRN (Reason: muscle spasm) Qty: 14 0RF bupropion HCl 100 mg tablet sustained-release 12 hr 100 mg PO BID 0RF Label Comments: TAKE 1 TABLET BY MOUTH TWICE DAILY <Desean Huizar, DO - Last Filed: 10/24/21 09:54> Case was signed out to me by my colleague Dr. Willem Hawley. Please refer to his HPI, physical exam, assessment and plan, additionally the patient initially presented during downtime, please refer to his paper chart for initial EKG, assessment, and plan. At time of signout we are pending CT scan results and reassessment. CT scan shows evidence of severe emphysematous changes, no PE, no evidence of infarction in the pulmonary arteries. No pleural effusions. Radiology/Dr. Muñoz did call me, and discussed that he felt that the emphysematous changes did opt to skate some of the other lung findings, initially thought there was concern for Covid pneumonia, however her Covid test was negative and he instead suspects that there is more likely pulmonary edema component. Clinically the patient looks like a CHF exacerbation. She has +2 to +3 pitting edema, her oxygen demand has been increased. She has not been taking her Lasix at all for the last week. At this time patient is feeling better, chest pain is improved, troponin normal. proBNP is elevated, and clinically she demonstrates evidence of CHF. We did give 20 mg of IV Lasix. She still does have increased oxygen demand, and so I do feel that she would benefit from inpatient admission for continued Lasix, serial troponins and reassessment. Patient feels comfortable with this plan. Discussed the case with the hospitalist Dr. Bliss, he agrees with the assessment and plan. I have extensively reviewed the treatment plan with the patient. I have addressed all patient concerns at this time. I have also discussed the plan with the admitting physician and they agree with the current assessment and plan and have agreed to assume responsibility for the patient. All parties demonstrate verbal understanding and agreement with our assessment and plan at this time. The documentation in this chart was dictated using [employer] dictation software. Please excuse any dictation errors. FINDINGS: CHEST: PULMONARY ARTERIES: There are no intraluminal filling defects to suggest acute pulmonary emboli. 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 Ground-glass haziness throughout both lung dubois is unchanged from the prior study however on the present study there are no pleural effusions (as was present on the left side in May 2019). There are no new significant focal findings in the trachea and mainstem bronchi. MEDIASTINUM: There is no hilar nor mediastinal adenopathy. Visualized thyroid unremarkable. CARDIAC: Cardiomegaly again noted. There is no pericardial effusion.Caliber of the thoracic aorta is within normal limits. There is no obvious shift of the interventricular septum. PARTIALLY VISUALIZED UPPERMOST ABDOMEN: No obvious findings OSSEOUS: No significant osseous lesions.. IMPRESSION: 1. No evidence of acute pulmonary emboli. No evidence of pulmonary infarction.No pleural effusions. 2. Severe COPD-emphysematous changes again noted. No new confluent infiltrates. 3. Recommend nonportable PA and lateral views of the chest HPI <Willem Hawley MD - Last Filed: 10/24/21 07:25> General Date/Time Provider Initiated Documentation: 10/24/21 06:55. HPI Narrative: see downtime documentation Related Data Home Medications Medication Instructions Recorded Confirmed Levoxyl 100 mcg tablet 100 mcg PO DAILY tab-cap NS 07/11/13 10/24/21 (levothyroxine) furosemide 20 mg tablet (Lasix) 20 mg PO BID tab-cap 01/19/18 10/24/21 latanoprost 0.005 % eye drops 1 drp OPHTHALMIC HS drp 01/19/18 10/24/21 warfarin 2.5 mg tablet 2.5 mg PO DAILY tab-cap 01/19/18 10/24/21 nystatin (bulk) 500 million unit 1 ea MISCELLANEOUS DAILY 30 Days 02/05/18 10/24/21 powder #1 bottle fluticasone fur. 100 mcg-umeclid 1 inh INHALATION DAILY 03/02/19 10/24/21 62.5 mcg-vilant 25 mcg inhalat.powder (Trelegy Ellipta) fluticasone fur. 100 mcg-umeclid 1 inh IH DAILY 05/11/20 10/24/21 62.5 mcg-vilant 25 mcg inhalat.powder (Trelegy Ellipta) mirabegron 25 mg tablet,extended 25 mg PO DAILY 05/11/20 10/24/21 release 24 hr (Myrbetriq) famotidine 20 mg tablet 20 - 40 mg PO DAILY 05/28/20 10/24/21 acetaminophen 500 mg tablet 500 mg PO Q6H PRN #60 tab 05/30/20 10/24/21 amiodarone 200 mg tablet 200 mg PO DAILY 05/30/20 10/24/21 cyanocobalamin (vitamin B-12) 1,000 mcg PO DAILY 05/30/20 10/24/21 1,000 mcg tablet (Vitamin B-12) docusate sodium 100 mg capsule 100 mg PO BID #30 cap 05/30/20 10/24/21 (Colace) losartan 100 mg tablet 50 mg PO BID 05/30/20 10/24/21 metoprolol succinate 50 mg 50 mg PO BID 05/30/20 10/24/21 tablet,extended release 24 hr naproxen 375 mg tablet 375 mg PO BID PRN #60 tab 05/30/20 10/24/21 pramipexole 0.125 mg tablet 0.125 - 0.25 mg PO HS PRN 05/30/20 10/24/21 tramadol 50 mg tablet 50 mg PO Q4H PRN #28 tab 06/11/20 10/24/21 tizanidine 2 mg tablet 2 mg PO QHS PRN #14 tab 06/28/20 10/24/21 methocarbamol 500 mg tablet 500 mg PO Q6H PRN #14 tab 07/12/20 10/24/21 bupropion HCl 100 mg tablet,12 hr 100 mg PO BID 10/24/21 10/24/21 sustained-release Previous Rx's Medication Instructions Recorded nystatin (bulk) 500 million unit 1 ea MISCELLANEOUS DAILY 30 Days 02/05/18 powder #1 bottle acetaminophen 500 mg tablet 500 mg PO Q6H PRN #60 tab 05/30/20 docusate sodium 100 mg capsule 100 mg PO BID #30 cap 05/30/20 (Colace) naproxen 375 mg tablet 375 mg PO BID PRN #60 tab 05/30/20 tramadol 50 mg tablet 50 mg PO Q4H PRN #28 tab 06/11/20 tizanidine 2 mg tablet 2 mg PO QHS PRN #14 tab 06/28/20 methocarbamol 500 mg tablet 500 mg PO Q6H PRN #14 tab 07/12/20 Allergies Allergy/AdvReac Type Severity Reaction Status Date / Time adhesive Allergy Severe skin rash, Verified 07/26/20 09:51 blisters lisinopril Allergy Intermediate Verified 07/26/20 09:51 amoxicillin [Amoxicillin] Allergy Mild TINGLING Verified 07/26/20 09:51 oxybutynin Allergy Unknown PT CAN'T Verified 07/26/20 09:51 REMEMBER General CECILIA: 3 PFSH <Willem Hawley MD - Last Filed: 10/24/21 07:25> All Active Problems (Updated 10/24/21 @ 09:51 by Estela Florentino NP) Discharge planning issues (Acute) Acute exacerbation of CHF (congestive heart failure) (Acute) Breath shortness (Acute) Chest pain (Acute) Noncompliance with medication regimen (Acute) Status post total right knee replacement (Acute 05/30/20) Colon cancer screening (Acute) Abnormal breast finding (Acute 01/19/18) Adenoma of colon (Acute 01/19/18) Bruising (Acute 01/19/18) Chronic depression (Acute 01/19/18) Chronic obstructive lung disease (Acute 07/11/13) Degenerative arthritis of right knee (Chronic 04/23/15) Disorder of vulva (Acute 01/19/18) Edema leg (Acute 01/19/18) Essential hypertension (Acute 07/11/13) Hypothyroidism (Acute 07/11/13) Obesity (Acute 07/11/13) Osteoarthritis (Acute 07/11/13) Other forms of dyspnea (Acute 01/19/18) Overactive bladder (Acute 01/19/18) Primary osteoarthritis of both knees (Chronic 10/29/15) Synvisc injection: 11/04/2019; 05/03/2019 Shortness of breath (Acute 01/19/18) Tendinitis of left shoulder (Acute 01/07/16) Rectal hemorrhage (Acute) Acute on chronic diastolic heart failure (Acute) Chest pain (Acute) Atrial fibrillation (Chronic) DVT prophylaxis (Acute) SOB (shortness of breath) (Acute) CHF (congestive heart failure) (Chronic) Cough (Acute) Right rotator cuff tendonitis (Acute) AF (paroxysmal atrial fibrillation) (Chronic 01/19/18) Medical History AF (paroxysmal atrial fibrillation) (01/19/18) Cataracts, bilateral COPD (chronic obstructive pulmonary disease) Depression Edema H/O adenomatous polyp of colon History of cardioversion Hypertension Hypothyroidism Morbid obesity Osteoarthritis Tendonitis surgery r arm Surgical History Abdominal hysterectomy H/O colonoscopy x2 H/O: hysterectomy History of carpal tunnel release r wrist Status post total right knee replacement (05/30/20) Family History Other Heart disease Social History Smoking/Tobacco Use Status: Former Tobacco Use Smoking risk assessment performed?: Yes Alcohol Intake: former Drug use: Never Substance use type: does not use Current gender identity: female Do you feel safe at home: Yes Do you feel safe in your relationship?: Yes Course <Willem Hawley MD - Last Filed: 10/24/21 07:25> please see downtime documentation for iniitial eval documenation. In brief, patient with copd, chf, afib among other medical problems presents with 2 weeks of worsening shortness of breath with some discomfort in the chest with exertion, denies any pain now and denies any fever, has had a cough. Is normally on home o2 and had to increase it from 2 to 4L. Was given a neb by ems with some relief of her dyspnea. No significant wheezing on exam, speaking clearly, diminshed breath sounds at the bases bilaterally, pedal edema bilaterally. Givne her history and symptoms ekg, labs including troponin, cmp, cbc and bnp ordered as well as cta to exclude Pe and solumedrol as well as neb given for copd. Pt will be signed out to oncoming provider pending results and reassessment Sign Out <Willem Hawley MD - Last Filed: 10/24/21 07:25> Sign Out Data: Sign Out Comment: hx of afib, on home o2 due to copd and chf per patient, 2 weeks of cough and dyspnea, increased home o2 from 2 to 4L. Pending labs and CTA, reassessment. Given solumedrol and duoneb, some relief with duoneb Last updated by Willem Hawley MD at 10/24/21 07:17
--- NOTE | 2021-10-24 07:00 | DI.CT_ITS ---
Exam(s) CT CHEST PE CTA EXAM: CT CHEST PE CTA CLINICAL HISTORY: dyspnea, hypoxia. TECHNIQUE: Imaging Protocol: CT angiography of the chest was performed using pulmonary embolus jeromy col. Multi planar reconstructions were performed. CONTRAST MATERIAL: Intravenous: Omnipaque 350 Contrast volume: 85 cc COMPARISON: CT CT CHEST PE CTA from 05/18/2019 CR,XR XR CHEST 2V PA LATERAL from 08/06/2019 FINDINGS: CHEST: PULMONARY ARTERIES: There are no intraluminal filling defects to suggest acute pulmonary emboli. 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 Ground-glass haziness throughout both lung fi elds is unchanged from the prior study however on the present study there are no pleural effusions (a s was present on the left side in May 2019). There are no new significant focal findings in th e trachea and mainstem bronchi. MEDIASTINUM: There is no hilar nor mediastinal adenopathy. Visualized thyroid unremarkable. CARDIAC: Cardiomegaly again noted. There is no pericardial effusion.Caliber of the thoracic aorta is within normal limits. There is no obvious shift of the interventricular septum. PARTIALLY VISUALIZED UPPERMOST ABDOMEN: No obvious findings OSSEOUS: No significant osseous lesions.. IMPRESSION: 1. No evidence of acute pulmonary emboli. No evidence of pulmonary infarction.No pleural effusions. 2. Severe COPD-emphysematous changes again noted. No new confluent infiltrates. 3. Recommend nonportable PA and lateral views of the chest RADIATION DOSE DELIVERED: 600.96mGy.cm Total DLP DATA REPOSITORY: All CT scans at this facility are submitted to the National Radiology Data Registry (NRDR) Dose Index Registry (DIR) with the [employer] (A[employer]). RADIATION OPTIMIZATION: All CT scans at this facility use at least one of these dose optimization te chniques: automated exposure control; mA and/or kV adjustment per patient size (includes targeted exa ms where dose is matched to clinical indication); or iterative reconstruction.
[2021-10-24 07:07] LABS: Source Nasal/Nares
[2021-10-24 07:23] LABS: BE (Venous) 7 mmol/L (-2-3); HCO3 (Venous) 32 mmol/L (23-28); O2 Sat (Venous) 67 %; TCO2 (Venous) 30 mmol/L (24-29); pCO2 (Venous) 60 mmHg (41-51); pH (Venous) 7.34 (7.31-7.41); pO2 (Venous) 38 mmHg
[2021-10-24 07:25] LABS: Abs Immature Grans 0.02 10^3/uL (0.0-0.06); Absolute Basophil Count 0.05 10^3/uL (0.0-0.2); Absolute Eosinophil Count 0.15 10^3/uL (0.0-0.7); Absolute Lymphocyte Count 0.83 10^3/uL (1.2-3.4); Absolute Monocyte Count 0.59 10^3/uL (0.1-0.8); Absolute Neutrophil Count 5.01 10^3/uL (1.2-6.7); Basophils % 0.8; Eosinophils % 2.3; HCT 38.6 % (36.0-46.0); HGB 11.6 g/dL (11.2-15.7); Immature Grans % 0.3; Lymphocytes % 12.5; MCH 31.5 pg (27.0-33.0); MCHC 30.1 % (32.0-36.0); MCV 104.9 fL (80-95); MPV 10.6 fL (8.0-11.0); Monocytes % 8.9; Neutrophils % 75.2; Nucleated RBC 0 %; Platelet Count 215 10^3/uL (130-400); RBC 3.68 10^6/uL (3.93-5.22); RDW 14.4 % (11.7-14.6); RDW-SD 56.4 fL; WBC 6.65 10^3/uL (4.4-10.8)
[2021-10-24 07:43] LABS: ALT 42 U/L (14-59); AST 47 U/L (15-37); Alkaline Phosphatase 127 U/L (46-116); Anion Gap 6.7 mmol/L (3-11); BUN 20 mg/dL (7-18); Bilirubin, Total 0.5 mg/dL (0.2-1.0); CO2 31.3 mmol/L (21.0-32.0); CREATININE 0.9 mg/dL (0.55-1.02); Calcium 8.8 mg/dL (8.5-10.1); Chloride 103 mmol/L (98-107); Glucose 103 mg/dL (74-106); NT-proBNP 2528 pg/mL (<300); Potassium 4.1 mmol/L (3.5-5.1); Sodium 141 mmol/L (136-145); TSH (W/Ref FT4) 3.54 uIU/mL (0.36-3.74); Total Protein 7.8 g/dL (6.4-8.2); Troponin I < 50 ng/L (<or=60)
[2021-10-24 07:49] LABS: INR 1.6 (0.9-1.1); PTT Activated 32.8 sec (21.0-27.5); Prothrombin Time 16.3 sec (9.3-11.0)
[2021-10-24 07:57] LABS: COVID-19 PCR Negative (Negative)
[2021-10-24] MEDS: Omnipaque 350 MG/ML 100 ML BTL IJ (08:41)
[2021-10-24] MEDS: Furosemide 20 MG/2 ML VIAL IVP (08:55)
--- NOTE | 2021-10-24 09:40 | W.PM.HP.N ---
Date of service: 10/24/21 Time of Service: 09:41 Assessment and Plan Assessment and plan (1) Acute exacerbation of CHF (congestive heart failure): Status: Acute Assessment and plan: continue IV diuresis monitor intake and output daily weights. no chest pain, had stopped taking lasix d/t urinary frequency and incontinence . No dysuria, fever, or c/o UTI. (2) Chest pain: Status: Acute Assessment and plan: serial troponins negative no chest pain reports more with breathing. (3) AF (paroxysmal atrial fibrillation): Status: Chronic Assessment and plan: rate controlled. continue coumadin and amiodarone (4) Essential hypertension: Status: Acute Assessment and plan: blood pressure stable continue home medication (5) Hypothyroidism: Status: Acute Assessment and plan: TSH 3.45 continue home medication Qualifiers: Hypothyroidism type: acquired Qualified Code(s): E03.9 - Hypothyroidism, unspecified (6) Chronic obstructive lung disease: Status: Acute Assessment and plan: stable, no evidence of exacerbation Qualifiers: COPD type: unspecified COPD Qualified Code(s): J44.9 - Chronic obstructive pulmonary disease, unspecified (7) DVT prophylaxis: Status: Acute Assessment and plan: fully anticoagulated on coumadin (8) Discharge planning issues: Status: Acute Assessment and plan: plan to discharge to home with new home health services. discussed with Dr Bliss. History of Present Illness History of Present Illness Chief Complaint: shortness of breath Narrative: patient presents to ED via EMS for c/o shortness of breath, chest pain and hypoxia. she was requiring 4 liters nasal cannula to maintain sats in 90's. She reportedly stopped taking her lasix about one week ago because she did not want to continue to urinate frequently. she noted increased lower extremity edema and presents with pitting bilaterally. Her work up in the ED most consistent with fluid overload. she was given lasix 20 mg IVP. No evidence of infectious process or copd exac. hospitalist services was contacted to admit for further management Review of Systems Constitutional Constitutional: Denies fever(s) Cardiovascular Cardiovascular: Reports chest pain, Reports pedal edema, Reports leg edema, Reports dyspnea and Reports dyspnea on exertion Respiratory Respiratory: Denies cough, Reports dyspnea, Reports dyspnea on exertion and Denies wheezing Allergic/Immunologic Allergic/Immunologic: Denies wheezing PFSH All Active Problems (Updated 10/24/21 @ 09:51 by Estela Florentino NP) Discharge planning issues (Acute) Acute exacerbation of CHF (congestive heart failure) (Acute) Breath shortness (Acute) Chest pain (Acute) Noncompliance with medication regimen (Acute) Status post total right knee replacement (Acute 05/30/20) Colon cancer screening (Acute) Abnormal breast finding (Acute 01/19/18) Adenoma of colon (Acute 01/19/18) Bruising (Acute 01/19/18) Chronic depression (Acute 01/19/18) Chronic obstructive lung disease (Acute 07/11/13) Degenerative arthritis of right knee (Chronic 04/23/15) Disorder of vulva (Acute 01/19/18) Edema leg (Acute 01/19/18) Essential hypertension (Acute 07/11/13) Hypothyroidism (Acute 07/11/13) Obesity (Acute 07/11/13) Osteoarthritis (Acute 07/11/13) Other forms of dyspnea (Acute 01/19/18) Overactive bladder (Acute 01/19/18) Primary osteoarthritis of both knees (Chronic 10/29/15) Synvisc injection: 11/04/2019; 05/03/2019 Shortness of breath (Acute 01/19/18) Tendinitis of left shoulder (Acute 01/07/16) Rectal hemorrhage (Acute) Acute on chronic diastolic heart failure (Acute) Chest pain (Acute) Atrial fibrillation (Chronic) DVT prophylaxis (Acute) SOB (shortness of breath) (Acute) CHF (congestive heart failure) (Chronic) Cough (Acute) Right rotator cuff tendonitis (Acute) AF (paroxysmal atrial fibrillation) (Chronic 01/19/18) Medical History AF (paroxysmal atrial fibrillation) (01/19/18) Cataracts, bilateral COPD (chronic obstructive pulmonary disease) Depression Edema H/O adenomatous polyp of colon History of cardioversion Hypertension Hypothyroidism Morbid obesity Osteoarthritis Tendonitis surgery r arm Surgical History Abdominal hysterectomy H/O colonoscopy x2 H/O: hysterectomy History of carpal tunnel release r wrist Status post total right knee replacement (05/30/20) Family History Other Heart disease Social History Smoking/Tobacco Use Status: Former Tobacco Use Smoking risk assessment performed?: Yes Alcohol Intake: former Drug use: Never Substance use type: does not use Current gender identity: female Do you feel safe at home: Yes Do you feel safe in your relationship?: Yes Meds Allergies and Home Medications Allergies Allergy/AdvReac Type Severity Reaction Status Date / Time adhesive Allergy Severe skin rash, Verified 07/26/20 09:51 blisters lisinopril Allergy Intermediate Verified 07/26/20 09:51 amoxicillin [Amoxicillin] Allergy Mild TINGLING Verified 07/26/20 09:51 oxybutynin Allergy Unknown PT CAN'T Verified 07/26/20 09:51 REMEMBER Home Medications Medication Instructions Recorded Confirmed Type Levoxyl 100 mcg tablet 100 mcg PO DAILY tab-cap NS 07/11/13 10/24/21 History (levothyroxine) furosemide 20 mg tablet (Lasix) 20 mg PO BID tab-cap 01/19/18 10/24/21 History latanoprost 0.005 % eye drops 1 drp OPHTHALMIC HS drp 01/19/18 10/24/21 History warfarin 2.5 mg tablet 2.5 mg PO DAILY tab-cap 01/19/18 10/24/21 History nystatin (bulk) 500 million unit 1 ea MISCELLANEOUS DAILY 30 Days 02/05/18 10/24/21 Rx powder #1 bottle fluticasone fur. 100 mcg-umeclid 1 inh INHALATION DAILY 03/02/19 10/24/21 History 62.5 mcg-vilant 25 mcg inhalat.powder (Trelegy Ellipta) mirabegron 25 mg tablet,extended 25 mg PO DAILY 05/11/20 10/24/21 History release 24 hr (Myrbetriq) famotidine 20 mg tablet 20 - 40 mg PO DAILY 05/28/20 10/24/21 History acetaminophen 500 mg tablet 500 mg PO Q6H PRN #60 tab 05/30/20 10/24/21 Rx amiodarone 200 mg tablet 200 mg PO DAILY 05/30/20 10/24/21 History cyanocobalamin (vitamin B-12) 1,000 mcg PO DAILY 05/30/20 10/24/21 History 1,000 mcg tablet (Vitamin B-12) docusate sodium 100 mg capsule 100 mg PO BID #30 cap 05/30/20 10/24/21 Rx (Colace) losartan 100 mg tablet 50 mg PO BID 05/30/20 10/24/21 History metoprolol succinate 50 mg 50 mg PO BID 05/30/20 10/24/21 History tablet,extended release 24 hr naproxen 375 mg tablet 375 mg PO BID PRN #60 tab 05/30/20 10/24/21 Rx pramipexole 0.125 mg tablet 0.125 - 0.25 mg PO HS PRN 05/30/20 10/24/21 History tramadol 50 mg tablet 50 mg PO Q4H PRN #28 tab 06/11/20 10/24/21 Rx tizanidine 2 mg tablet 2 mg PO QHS PRN #14 tab 06/28/20 10/24/21 Rx methocarbamol 500 mg tablet 500 mg PO Q6H PRN #14 tab 07/12/20 10/24/21 Rx bupropion HCl 100 mg tablet,12 hr 100 mg PO BID 10/24/21 10/24/21 History sustained-release Exam Const General: cooperative, comfortable, no acute distress (younger than stated age) and other (shortness of breath on exertion) Nutritional Appearance: obese Orientation: alert, awake and oriented x3 HENMT Head: normal to inspection, normocephalic and atraumatic Neck Neck: no JVD Chest Chest: normal inspection of the chest Resp Effort & Inspection: able to speak in complete sentences Auscultation: rales bilaterally at the base and 1/[address] and no wheezes Cardio Rate: regular rate Rhythm: regular rhythm GI Inspection: normal to inspection Skin General skin exam: no rashes or lesions noted Neuro General: patient alert, patient awake, patient oriented x3 and no focal motor deficits Extrem General: edema Laterality: bilateral (lower extremity, reports increased from baseline) Results Labs Result diagrams: 10/26/21 06:35 10/26/21 06:35 Labs: Laboratory Results - last 24 hr 10/24/21 10/24/21 10/24/21 06:20 07:05 07:05 WBC RBC Hgb Hct MCV MCH MCHC RDW Plt Count MPV Immature Gran % Neutrophils % Lymphocytes % Monocytes % Eosinophils % Basophils % Nucleated RBC % Absolute Neutrophils Absolute Lymphocytes Absolute Monocytes Absolute Eosinophils Absolute Basophils PT INR APTT VBG pH 7.34 VBG pCO2 60 H VBG pO2 38 VBG HCO3 32 H VBG Total CO2 30 H VBG O2 Saturation 67 VBG Base Excess 7 H Sodium 141 Potassium 4.1 Chloride 103 Carbon Dioxide 31.3 Anion Gap 6.7 BUN 20 H Creatinine 0.9 Estimated GFR/1.73 m2 >= 60.00 Glucose 103 Calcium 8.8 Magnesium 2.0 Total Bilirubin 0.5 AST 47 H ALT 42 Alkaline Phosphatase 127 H Troponin I < 50 NT-Pro-B Natriuret Pep 2528 H Total Protein 7.8 Albumin 3.0 L TSH 3.54 COVID-19 Source Nasal/Nares SARS-CoV-2 (PCR) Negative 10/24/21 10/24/21 07:05 07:05 WBC 6.65 RBC 3.68 L Hgb 11.6 Hct 38.6 MCV 104.9 H MCH 31.5 MCHC 30.1 L RDW 14.4 Plt Count 215 MPV 10.6 Immature Gran % 0.3 Neutrophils % 75.2 Lymphocytes % 12.5 Monocytes % 8.9 Eosinophils % 2.3 Basophils % 0.8 Nucleated RBC % 0 Absolute Neutrophils 5.01 Absolute Lymphocytes 0.83 L Absolute Monocytes 0.59 Absolute Eosinophils 0.15 Absolute Basophils 0.05 PT 16.3 H INR 1.6 H APTT 32.8 H VBG pH VBG pCO2 VBG pO2 VBG HCO3 VBG Total CO2 VBG O2 Saturation VBG Base Excess Sodium Potassium Chloride Carbon Dioxide Anion Gap BUN Creatinine Estimated GFR/1.73 m2 Glucose Calcium Magnesium Total Bilirubin AST ALT Alkaline Phosphatase Troponin I NT-Pro-B Natriuret Pep Total Protein Albumin TSH COVID-19 Source SARS-CoV-2 (PCR) Last Vital Signs Temp 36.6 C 10/24/21 07:06 Pulse 73 10/24/21 07:54 Resp 27 H 10/24/21 07:54 BP 163/93 H 10/24/21 07:54 Pulse Ox 98 10/24/21 07:31
[2021-10-24 11:58] LABS: Troponin I < 50 ng/L (<or=60)
[2021-10-24] MEDS: Acetaminophen 500 MG TAB PO (15:48)
[2021-10-24] MEDS: Furosemide 40 MG/4 ML VIAL IVP (17:24)
[2021-10-24] MEDS: Normal Saline Flush 10 ML SYR (17:31)
[2021-10-24 17:48] LABS: Bilirubin Negative (Negative); Blood Negative (Negative); Clarity Clear (Clear); Glucose Negative (Negative); Ketones Negative (Negative); Leukocyte Esterase Negative (Negative); Nitrite Negative (Negative); Urobilinogen 0.2 EU/dL (Up TO 0.2)
[2021-10-24] MEDS: Metoprolol CR 50 MG TABCR PO (21:37)
[2021-10-24] MEDS: Losartan 50 MG TAB PO (21:37)
[2021-10-24] MEDS: Latanoprost 0.005% 2.5 ML BTL OP (21:37)
[2021-10-24] MEDS: buPROPion-CR 100 MG TABCR PO (21:37)
[2021-10-24] MEDS: Warfarin 5 MG TAB PO (21:37)
[2021-10-24] MEDS: Docusate Sodium 100 MG CAP PO (21:37)
[2021-10-25] VITALS (9 sets, daily range): BP systolic 123–148; BP diastolic 72–84; PULSE 70–104; RESP 16–18; TEMP 36.2–36.8; O2SAT 95–100
[2021-10-25] MEDS: Acetaminophen 500 MG TAB PO (03:19)
[2021-10-25] MEDS: Levothyroxine 100 MCG TAB PO (06:31)
[2021-10-25 06:50] LABS: INR 1.5 (0.9-1.1); Prothrombin Time 15.4 sec (9.3-11.0)
[2021-10-25] MEDS: Cyanocobalamin 500 MCG TAB 1000 MCG PO (08:10)
[2021-10-25] MEDS: Furosemide 40 MG/4 ML VIAL IVP ×2 (08:10→16:21)
[2021-10-25] MEDS: Docusate Sodium 100 MG CAP PO ×2 (08:10→21:47)
[2021-10-25] MEDS: Metoprolol CR 50 MG TABCR PO ×2 (08:10→21:48)
[2021-10-25] MEDS: buPROPion-CR 100 MG TABCR PO ×2 (08:10→21:47)
[2021-10-25] MEDS: Losartan 50 MG TAB PO ×2 (08:10→21:47)
[2021-10-25] MEDS: Amiodarone 200 MG TAB PO (08:11)
[2021-10-25] MEDS: Mirabegron 25 MG TABCR PO (08:11)
[2021-10-25] MEDS: Famotidine 20 MG TAB PO (08:11)
[2021-10-25] MEDS: Normal Saline Flush 10 ML SYR IVP (08:12)
--- NOTE | 2021-10-25 14:07 | PGE_ITS ---
Date of Service Date of service: 10/26/21 Time of Service: 13:36 Assessment and Plan Assessment and plan (1) Acute exacerbation of CHF (congestive heart failure): Status: Acute Assessment and plan: continue IV diuresis, symptoms improving with treatment continue to monitor intake and output and daily weights. insert indwelling green catheter while on aggressive diuresis urology consult placed for possible suprapubic catheter. (2) Chest pain: Status: Resolved Assessment and plan: serial troponins negative no chest pain (3) AF (paroxysmal atrial fibrillation): Status: Chronic Assessment and plan: rate controlled. continue coumadin and amiodarone will continue with 5 mg daily dosing and following (4) Essential hypertension: Status: Acute Assessment and plan: blood pressure stable continue home medication (5) Hypothyroidism: Status: Acute Assessment and plan: TSH 3.45 continue home medication Qualifiers: Hypothyroidism type: acquired Qualified Code(s): E03.9 - Hypothyroidism, unspecified (6) Chronic obstructive lung disease: Status: Acute Assessment and plan: stable, no evidence of exacerbation Qualifiers: COPD type: unspecified COPD Qualified Code(s): J44.9 - Chronic obs tructive pulmonary disease, unspecified (7) DVT prophylaxis: Status: Acute Assessment and plan: fully anticoagulated on coumadin (8) Discharge planning issues: Status: Acute Assessment and plan: plan to discharge to home with new home health services. discussed with Dr Bliss. Subjective Subjective Interval history since last seen: patient c/o not wanting IV lasix d/t urinary frequency and incontinence, agreeable to a green cather. no other c/o Exam Const General: cooperative, comfortable, no acute distress (younger than stated age) and other (shortness of breath on exertion) Nutritional Appearance: obese Orientation: alert, awake and oriented x3 [facility] Head: normal to inspection, normocephalic and atraumatic Neck Neck: no JVD Chest Chest: normal inspection of the chest Resp Effort & Inspection: able to speak in complete sentences Auscultation: rales bilaterally at the base and 1/[address] and no wheezes Cardio Rate: regular rate Rhythm: regular rhythm GI Inspection: normal to inspection Skin General skin exam: no rashes or lesions noted Neuro General: patient alert, patient awake, patient oriented x3 and no focal motor deficits Extrem General: edema Laterality: bilateral (lower extremity, reports increased from baseline) Objective Last Vital Signs Temp 36.2 C L 10/25/21 03:34 Pulse 71 10/25/21 07:50 Resp 18 10/25/21 07:50 BP 134/78 10/25/21 07:50 Pulse Ox 95 10/25/21 07:50 Laboratory Results - last 24 hr 10/24/21 10/25/21 17:20 06:16 PT 15.4 H INR 1.5 H Urine Color Yellow Urine Clarity Clear Urine pH 7.0 Ur Specific [place] 1.020 Urine Protein Negative Urine Ketones Negative Urine Blood Negative Urine Nitrite Negative Urine Bilirubin Negative Urine Urobilinogen 0.2 Ur Leukocyte Esterase Negative Urine Glucose Negative
--- NOTE | 2021-10-25 14:42 | INITIAL_ITS ---
- If Service Date Differs Date of service: 10/25/21 Time of Service: 14:42 Care Management Initial Assess REASON FOR HOSPITALIZATION:: Heart Failure PAST MEDICAL HISTORY/PAST SURGICAL HISTORY:: All Active Problems. Discharge planning issues (Acute). Acute exacerbation of CHF (congestive heart failure) (Acute). Breath shortness (Acute). Chest pain (Acute). Noncompliance with medication regimen (Acute). Status post total right knee replacement (Acute 05/30/20). Colon cancer screening (Acute). Abnormal breast finding (Acute 01/19/18). Adenoma of colon (Acute 01/19/18). Bruising (Acute 01/19/18). Chronic depression (Acute 01/19/18). Chronic obstructive lung disease (Acute 07/11/13). Degenerative arthritis of right knee (Chronic 04/23/15). Disorder of vulva (Acute 01/19/18). Edema leg (Acute 01/19/18). Essential hypertension (Acute 07/11/13). Hypothyroidism (Acute 07/11/13). Obesity (Acute 07/11/13). Osteoarthritis (Acute 07/11/13). Other forms of dyspnea (Acute 01/19/18). Overactive bladder (Acute 01/19/18). Primary osteoarthritis of both knees (Chronic 10/29/15). Synvisc injection: 11/04/2019; 05/03/2019. Shortness of breath (Acute 01/19/18). Tendinitis of left shoulder (Acute 01/07/16). Rectal hemorrhage (Acute). Acute on chronic diastolic heart failure (Acute). Chest pain (Acute). Atrial fibrillation (Chronic). DVT prophylaxis (Acute). SOB (shortness of breath) (Acute). CHF (congestive heart failure) (Chronic). Cough (Acute). Right rotator cuff tendonitis (Acute). AF (paroxysmal atrial fibrillation) (Chronic 01/19/18). Medical History. AF (paroxysmal atrial fibrillation) (01/19/18). Cataracts, bilateral. COPD (chronic obstructive pulmonary disease). Depression. Edema. H/O adenomatous polyp of colon. History of cardioversion. Hypertension. Hypothyroidism. Morbid obesity. Osteoarthritis. Tendonitis. surgery r arm. Surgical History. Abdominal hysterectomy. H/O colonoscopy. x2. H/O: hysterectomy. History of carpal tunnel release. r wrist PREVIOUS FUNCTIONAL STATUS/SOCIAL/FAMILY SUPPORTS:: Celeste lives in [place] with her , Valentin. Her sister, Annamaria, lives nearby in [place]. Her adult children, grandchildren and great grandchildren all live out of the state. 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 She is independent with ADL's. CURRENT FUNCTIONAL STATUS:: Celeste was sitting up in bed when CM met with her. She stated that she is feeling much better than when she arrived, but still not at her best. Per provider, she will remain overnight for further observation. She will likely require new HH services upon discharge- RN, PT, OT, RETAIL AREA MANAGER. CM sent a referral to [facility] for support with repairs on her home, and general assisted planning. CM will continue to follow. ADVANCE DIRECTIVES:: None on file, DPOA listed as her spouse, Ed. Has patient been provided with info about the portal/API?: Yes Did the patient sign up for the portal?: No CODE STATUS:: DNR/DNI INSURANCE COVERAGE / FINANCIAL ISSUES:: [facility] replacement/ financial assist 100% CURRENT HOME/COMMUNITY SERVICES/EQUIPMENT:: FWW, Oxygen Therapy PRIMARY CARE PHYSICIAN:: Ginny Scherer POTENTIAL DISCHARGE NEEDS:: Evaluations for further needs, follow up appointments PATIENT/FAMILY EDUCATION NEEDS:: Review discharge instructions, community based supports. ANTICIPATED BARRIERS TO DISCHARGE:: None identified TRANSPORTATION:: Celeste will transport home via private vehicle with her Valentin vs [facility] transportation. PLAN:: Anticipate Celeste will return home when medically cleared. Her , Valentin will drive her home via private vehicle vs [facility] when ready. She will have a follow up appointment with her PCP, as recommended. CM will continue to follow.
--- NOTE | 2021-10-25 14:43 | CHAPLAIN ---
Celeste was up in the chair and talking on the phone when I visited. She said she turned 80 and everything fell apart. She lives in [facility] and has been in touch with family. I explained my role and offered support.
[2021-10-25] MEDS: Warfarin 5 MG TAB PO (21:47)
[2021-10-25] MEDS: Latanoprost 0.005% 2.5 ML BTL OP (21:48)
[2021-10-26 00:04] VITALS: PULSE 83
[2021-10-26 03:31] VITALS: BP 146/90; PULSE 101; RESP 20; TEMP 36.4; O2SAT 95
[2021-10-26 03:35] VITALS: O2SAT 96
[2021-10-26] MEDS: Levothyroxine 100 MCG TAB PO (06:11)
[2021-10-26 07:00] VITALS: PULSE 85
[2021-10-26 07:08] LABS: Abs Immature Grans 0.03 10^3/uL (0.0-0.06); Absolute Basophil Count 0.06 10^3/uL (0.0-0.2); Absolute Eosinophil Count 0.19 10^3/uL (0.0-0.7); Absolute Monocyte Count 0.81 10^3/uL (0.1-0.8); Absolute Neutrophil Count 4.97 10^3/uL (1.2-6.7); Basophils % 0.9; Eosinophils % 2.7; HCT 39.1 % (36.0-46.0); HGB 12.1 g/dL (11.2-15.7); Immature Grans % 0.4; Lymphocytes % 12.9; MCH 31.2 pg (27.0-33.0); MCHC 30.9 % (32.0-36.0); MCV 100.8 fL (80-95); MPV 10.3 fL (8.0-11.0); Monocytes % 11.6; Neutrophils % 71.5; Nucleated RBC 0 %; Platelet Count 234 10^3/uL (130-400); RBC 3.88 10^6/uL (3.93-5.22); RDW 14.5 % (11.7-14.6); RDW-SD 53.8 fL; WBC 6.96 10^3/uL (4.4-10.8)
[2021-10-26 07:19] LABS: Anion Gap 7.5 mmol/L (3-11); BUN 21 mg/dL (7-18); CO2 31.5 mmol/L (21.0-32.0); CREATININE 0.9 mg/dL (0.55-1.02); Calcium 8.9 mg/dL (8.5-10.1); Chloride 101 mmol/L (98-107); Glucose 107 mg/dL (74-106); Potassium 3.8 mmol/L (3.5-5.1); Sodium 140 mmol/L (136-145)
[2021-10-26 07:21] LABS: INR 1.8 (0.9-1.1); Prothrombin Time 17.9 sec (9.3-11.0)
[2021-10-26 08:23] VITALS: BP 131/97; PULSE 77; RESP 18; TEMP 36.6; O2SAT 95
[2021-10-26] MEDS: Losartan 50 MG TAB PO (08:33)
[2021-10-26] MEDS: Furosemide 40 MG/4 ML VIAL IVP (08:33)
[2021-10-26] MEDS: Mirabegron 25 MG TABCR PO (08:33)
[2021-10-26] MEDS: Famotidine 20 MG TAB PO (08:33)
[2021-10-26] MEDS: buPROPion-CR 100 MG TABCR PO (08:34)
[2021-10-26] MEDS: Metoprolol CR 50 MG TABCR PO (08:34)
[2021-10-26] MEDS: Normal Saline Flush 10 ML SYR IVP (08:34)
[2021-10-26] MEDS: Docusate Sodium 100 MG CAP PO (08:34)
[2021-10-26] MEDS: Cyanocobalamin 500 MCG TAB 1000 MCG PO (08:34)
[2021-10-26] MEDS: Amiodarone 200 MG TAB PO (08:34)
--- NOTE | 2021-10-26 11:07 | W.PM.DS.N ---
Date of service: 10/26/21 Time of Service: 11:07 DS: Diagnosis Discharge Diagnosis (1) Acute exacerbation of CHF (congestive heart failure): Status: Acute (2) Chest pain: Status: Resolved (3) AF (paroxysmal atrial fibrillation): Status: Chronic (4) Essential hypertension: Status: Acute (5) Hypothyroidism: Status: Acute (6) Chronic obstructive lung disease: Status: Acute (7) DVT prophylaxis: Status: Acute (8) Discharge planning issues: Status: Acute Discharge Plan Disposition Patient Disposition: HOME W/HOME HEALTH SERVICE Condition: Good Discharge Details Reason For Visit: Heart Failure Admit Date/Time: 10/24/21 09:33 Admit Provider: Richard Bliss Attending Provider: Richard Bliss Primary Care Provider: Ginny Scherer V Hospital Course Hospital Course: This is an 80 year old female with history of heart failure on lasix who stopped taking her lasix d/t urinary incontinence and frequency that was interfering with her quality of life. Her serial troponins negative. she received IV diuresis with good effect and resolution of her symptoms. she requested a green catheter be placed for her comfort. We discussed the risks of nursing home indwelling green catheter. she was interested in discussing suprapubic catheter placement with dr Hidalgo. plan is for outpatient follow up to further explore this option. she has been well diuresed and stable for discharge to home. She will be referred to home health services at discharge for routine evaluation, medication oversight, green care and ongoing management. Nursing, PT/OT and CUSTOMER SOLUTIONS SUPERVISOR. discharge discussed with Dr Mayers Home Meds and New Rx's Prescriptions: Continued Myrbetriq 25 mg tablet extended release 24 hr 25 mg PO DAILY 0RF tramadol 50 mg tablet 50 mg PO Q4H PRN (Reason: pain) Qty: 28 0RF levothyroxine [Levoxyl] 100 MCG tablet 100 mcg PO DAILY 0RF latanoprost 2.5 ML drops 1 drp Ophthalmic HS 0RF warfarin 2.5 MG tablet 2.5 mg PO DAILY 0RF Rx Instructions: 2.5 MG M---S 5mg [id number] furosemide [Lasix] 20 MG tablet 20 mg PO BID 0RF nystatin (bulk) 1 EACH powder 1 ea Miscellaneous DAILY 30 Days Qty: 1 1RF tizanidine 2 mg tablet 2 mg PO QHS PRN (Reason: muscle spasticity) Qty: 14 0RF Trelegy Ellipta 100-62.5-25 mcg Blister With Device 1 inh INHALATION DAILY 0RF famotidine 20 mg Tablet 20 - 40 mg PO DAILY 0RF acetaminophen 500 mg tablet 500 mg PO Q6H PRN (Reason: pain) Qty: 60 2RF docusate sodium [Colace] 100 mg capsule 100 mg PO BID Qty: 30 0RF naproxen 375 mg tablet 375 mg PO BID PRNQty: 60 2RF pramipexole 0.125 mg tablet 0.125 - 0.25 mg PO HS PRN (Reason: Restless Leg(S)) 0RF Label Comments: TAKE 1 TO 2 TABLETS BY MOUTH AT BEDTIME IF NEEDED FOR RESTLESS LEGS cyanocobalamin (vitamin B-12) [Vitamin B-12] 1,000 mcg tablet 1,000 mcg PO DAILY 0RF Label Comments: TAKE 1 TABLET BY MOUTH ONCE DAILY metoprolol succinate 50 mg tablet extended release 24 hr 50 mg PO BID 0RF Label Comments: TAKE 1 TABLET BY MOUTH TWICE DAILY amiodarone 200 mg tablet 200 mg PO DAILY 0RF Label Comments: TAKE 1 TABLET BY MOUTH ONCE DAILY AFTER FIRST WEEK FOR MAINTENANCE losartan 100 mg tablet 50 mg PO BID 0RF Label Comments: TAKE 1 TABLET BY MOUTH ONCE DAILY methocarbamol 500 mg tablet 500 mg PO Q6H PRN (Reason: muscle spasm) Qty: 14 0RF bupropion HCl 100 mg tablet sustained-release 12 hr 100 mg PO BID 0RF Label Comments: TAKE 1 TABLET BY MOUTH TWICE DAILY Discharge Instructions Instructions: Heart Failure (DC), Green Catheter Placement and Care (DC), Urinary Leg Bag (GEN), How to Change a Catheter Drainage Bag (DC) Additional Instructions: Your INR today is 1.8, you have been receiving 5 mg coumadin daily. continue with 5 mg daily and recheck INR on Thursday, Oct 28, 2021. notify pcp office for further coumadin recommendations. green care as directed Stand Alone Forms: Nursing Discharge Form Referrals: Ginny Scherer MD [Primary Care Provider] - (Call Thursday for an Appointment in the next 2 Weeks ) Ivan Hidalgo MD [ [facility] STAFF PHYSICIAN] - (Call Thursday for an Appointment in the next 2 Weeks ) Activity:: Activity as Tolerated Equipment/Supplies:: green supplies Diet:: Low Sodium Discharge Orders Discharge Orders: Discharge Order (Routine); Ordered 10/26/21 Ordered By: Estela Florentino Discharge Data Discharge Date/Time-TO BE ENTERED AT DEPARTURE: 10/26/21 11:48 DS: Summary Time Spent with Patient providing and/or coordinating discharge services: Greater than 30 minutes Status at Discharge Functional status at discharge: independent ambulation Overall status at discharge: patient is not back to baseline Mental Status: mental status grossly normal Speech and Movement: speech and movement normal Mood: congruent mood Affect: normal affect Exam Const General: cooperative, comfortable, no acute distress (younger than stated age) and other (shortness of breath on exertion) Nutritional Appearance: obese Orientation: alert, awake and oriented x3 [facility] Head: normal to inspection, normocephalic and atraumatic Neck Neck: no JVD Chest Chest: normal inspection of the chest Resp Effort & Inspection: able to speak in complete sentences Auscultation: rales bilaterally at the base and no wheezes Cardio Rate: regular rate Rhythm: regular rhythm GI Inspection: normal to inspection Other: green draining light clear yellow urine Skin General skin exam: no rashes or lesions noted Neuro General: patient alert, patient awake, patient oriented x3 and no focal motor deficits Extrem General: edema Laterality: bilateral (lower extremity, reports increased from baseline) Psych Mental Status: mental status grossly normal Speech and Movement: speech and movement normal Mood: congruent mood Affect: normal affect DS: Data Vitals/I&O Vitals and I&O: Vital Signs Temperature 36.6 C 10/26/21 08:23 Temperature Source Tympanic 10/26/21 08:23 Pulse 77 10/26/21 08:23 Pulse Rhythm Irregular 10/26/21 10:24 Pulse 83 10/24/21 10:30 Respiratory Rate 18 10/26/21 08:23 Respiratory Effort Non-Labored 10/26/21 10:24 Respiratory Depth Normal 10/26/21 10:24 Respiratory Pattern Normal 10/26/21 10:24 Blood Pressure 131/97 H 10/26/21 08:23 Blood Pressure Mean 135 10/24/21 10:31 Blood Pressure Position Supine 10/24/21 07:06 Pulse Oximetry 95 10/26/21 08:23 Oxygen Delivery Method Nasal Cannula 10/26/21 08:23 Oxygen Flow Rate 2.5 10/26/21 08:23 Pain Level 0 10/26/21 03:31 Comment 10/25/21 03:34 Intake & Output 10/25/21 10/25/21 10/26/21 11:59 23:59 11:59 Intake Total 240 / 420 180 / 420 Output Total 1300 / 2500 1200 / 2500 2150 / 2150 Balance -1060 / -2080 -1020 / -2080 -2150 / -2150 Weight 118.8 kg Intake: Oral 240 / 420 180 / 420 Output: Urine 1300 / 2500 1200 / 2500 2150 / 2150 Other: Urine Color Yellow Yellow Pale Urine Appearance Clear Clear Clear Comment did catheter training with pt . pt demonstrated changing gravity bag to leg bag and back again. clean technique utilized . alcohol swabs utilized. Voiding Methods Indwelling Catheter Data Completed and Pending Labs on day of discharge: Labs from last 24 hours 10/26/21 10/26/21 10/26/21 06:35 06:35 06:35 WBC 6.96 RBC 3.88 L Hgb 12.1 Hct 39.1 MCV 100.8 H MCH 31.2 MCHC 30.9 L RDW 14.5 Plt Count 234 MPV 10.3 Immature Gran % 0.4 Neutrophils % 71.5 Lymphocytes % 12.9 Monocytes % 11.6 Eosinophils % 2.7 Basophils % 0.9 Nucleated RBC % 0 Absolute Neutrophils 4.97 Absolute Lymphocytes 0.90 L Absolute Monocytes 0.81 H Absolute Eosinophils 0.19 Absolute Basophils 0.06 PT 17.9 H INR 1.8 H Sodium 140 Potassium 3.8 Chloride 101 Carbon Dioxide 31.5 Anion Gap 7.5 BUN 21 H Creatinine 0.9 Estimated GFR/1.73 m2 >= 60.00 Glucose 107 H Calcium 8.9 PFSH All Active Problems (Updated 10/26/21 @ 13:40 by Estela Florentino NP) Discharge planning issues (Acute) Acute exacerbation of CHF (congestive heart failure) (Acute) Breath shortness (Acute) Noncompliance with medication regimen (Acute) Status post total right knee replacement (Acute 05/30/20) Colon cancer screening (Acute) Abnormal breast finding (Acute 01/19/18) Adenoma of colon (Acute 01/19/18) Bruising (Acute 01/19/18) Chronic depression (Acute 01/19/18) Chronic obstructive lung disease (Acute 07/11/13) Degenerative arthritis of right knee (Chronic 04/23/15) Disorder of vulva (Acute 01/19/18) Edema leg (Acute 01/19/18) Essential hypertension (Acute 07/11/13) Hypothyroidism (Acute 07/11/13) Obesity (Acute 07/11/13) Osteoarthritis (Acute 07/11/13) Other forms of dyspnea (Acute 01/19/18) Overactive bladder (Acute 01/19/18) Primary osteoarthritis of both knees (Chronic 10/29/15) Synvisc injection: 11/04/2019; 05/03/2019 Shortness of breath (Acute 01/19/18) Tendinitis of left shoulder (Acute 01/07/16) Rectal hemorrhage (Acute) Acute on chronic diastolic heart failure (Acute) Chest pain (Acute) Atrial fibrillation (Chronic) DVT prophylaxis (Acute) SOB (shortness of breath) (Acute) CHF (congestive heart failure) (Chronic) Cough (Acute) Right rotator cuff tendonitis (Acute) AF (paroxysmal atrial fibrillation) (Chronic 01/19/18) Medical History AF (paroxysmal atrial fibrillation) (01/19/18) Cataracts, bilateral COPD (chronic obstructive pulmonary disease) Depression Edema H/O adenomatous polyp of colon History of cardioversion Hypertension Hypothyroidism Morbid obesity Osteoarthritis Tendonitis surgery r arm Surgical History Abdominal hysterectomy H/O colonoscopy x2 H/O: hysterectomy History of carpal tunnel release r wrist Status post total right knee replacement (05/30/20) Family History Other Heart disease Social History Smoking/Tobacco Use Status: Former Tobacco Use Smoking risk assessment performed?: Yes Alcohol Intake: former Drug use: Never Substance use type: does not use Current gender identity: female Do you feel safe at home: Yes Do you feel safe in your relationship?: Yes
--- NOTE | 2021-10-26 11:45 | PDOC.HHF2F_ITS ---
Home Health Certification Home Health Certification: 1. Encounter Date and Reason I certify that Celeste Carpenter was seen by Estela Florentino on 10/26/21 and that I had a [id number] encounter with this patient that meets the physician face to face encounter requirements. 2. Clinical Findings Supporting Skilled Need and Homebound Status I certify that home health services are medically necessary, include either intermittent mcfp and/or physical/speech therapy, and that this patient is homebound in that absences from the home require considerable and taxing effort and are infrequent or of short duration, or are attributable to the need to receive medical care. [X] (a) Attached documentation from encounter provides clinical findings supporting skilled need and homebound status (including what assistance patient requires to leave the home). The encounter with the patient was in whole, or in part, for the following medical condition, which is the primary reason for home health care: Heart Failure Senior Care: routine nursing evaluation, medication oversight, green catheter care Physical and occupational Therapy: routine evaluation and management PRODUCTION LINE WORKER: routine oversight Homebound: patient unable to safely leave house unattended d/t generalized weakness and shortness of breath limiting ambulation distance 3. Certification and Authentication I certify that I composed the above information based on my clinical judgement relating to this patient's medical condition and, if applicable, clinical findings communicated to me by the NPP or inpatient physician who performed the Home Health Referral. All further orders will be obtained through __Ginny Scherer V__(Community Based Physician - PCP)
--- NOTE | 2021-10-26 13:33 | PDOC.CMDIS ---
- If Service Date Differs Date of service: 10/26/21 Time of Service: 13:33 LACE Index Scoring Tool - Questions: Length of Stay (in days): 2 Acuity (Admit via E.D.?): Yes Comorbidities: Congestive Heart Failure, Chronic Pulmonary Disease E.D. Visits: 1 - Answers: Total Score: 11 Risk of Readmission: High Risk Care Management Discharge Reason for Hospitalization: Heart Failure Discharge Plan: Discharge home with New [facility] RN/PT/OT/ARTICULATION OFFICER via private vehicle with family. Recheck INR on Thursday10/28/21 and follow up with PCP for further dose recommendations. CM referred patient to the [facility], they will contact patient directly. Celeste will follow up with community providers and discharge plan of care as prescribed. Patient/Family Education Needs: Review discharge instructions, limitations, medications and plan to follow up with community providers. Please provide education surrounding green care. ask me three. Services Needed at Discharge: Home Health Care Services ([facility] RN/PT/OT, ARTICULATION OFFICER. CM notified )
== END 2021-10-26 11:48 | disposition home health service (06) | DRG 291 ==
LOC: ER 09:52 → MS 13:34
PROVIDERS: Emergency Medicine; Nurse Practitioner Acute Care; Admitting Provider Family Medicine; Emergency Provider Student in an Organized Health Care Education/Training Program; PCP Family Medicine; Visit Provider Family Medicine
DX: I11.0 Hypertensive heart disease with heart failure (principal); I50.33 Acute on chronic diastolic (congestive) heart failure; Z68.42 Body mass index [BMI] 45.0-49.9, adult; I48.0 Paroxysmal atrial fibrillation; E03.9 Hypothyroidism, unspecified; J44.9 Chronic obstructive pulmonary disease, unspecified; R07.89 Other chest pain; R09.02 Hypoxemia; Z91.14 Patient's other noncompliance with medication regimen; Z96.651 Presence of right artificial knee joint; E66.9 Obesity, unspecified; N32.81 Overactive bladder
CPT/HCPCS: 36415; 71275; 80048; 80053; 82805; 87635; 96374; 99285; 81003; 83735; 83880; 84443; 84484; 85025; 85610; 85730; 93306; 99233; 99238; J1940; J1941; J3490

== ENCOUNTER 2021-11-04 11:37 | Outpatient (REF) | payer MEDICARE, SELFPAY ==
[2021-11-04 12:42] LABS: Bilirubin Color Interference (Negative); Blood Color Interference (Negative); Clarity Cloudy (Clear); Glucose Color Interference mg/dL (Negative); Ketones Color Interference mg/dL (Negative); Leukocyte Esterase Color Interference (Negative); Nitrite Color Interference (Negative); Specific Gravity 1.028 (1.005-1.025); Urobilinogen Color Interference EU/dL (Up TO 0.2); pH 6.5 (5-8)
[2021-11-04 12:43] LABS: Bacteria Few HPF (Negative); C & S Indicated? Yes; Casts Negative LPF (Negative); Crystals Few Triple Phos HPF (Negative); Epithelial Cells Few HPF (Negative); Mucus Negative (Negative); RBC >50 HPF (0-2)
== END 2021-11-04 11:38 | disposition home or self-care (01) ==
LOC: NCHCN 11:37
PROVIDERS: PCP Family Medicine; Visit Provider Family Medicine
DX: N39.0 Urinary tract infection, site not specified (principal)
CPT/HCPCS: 87077; 81003; 81015; 87086; 87186

== ENCOUNTER 2021-11-14 17:13 | Outpatient (REF) | payer MEDICARE, SELFPAY ==
[2021-11-14 19:52] LABS: Anion Gap 6.4 mmol/L (3-11); BUN 20 mg/dL (7-18); CO2 32.6 mmol/L (21.0-32.0); Calcium 8.7 mg/dL (8.5-10.1); Chloride 104 mmol/L (98-107); Estimated GFR 53.35 (mL/min/1.73m2); Glucose 97 mg/dL (74-106); Sodium 143 mmol/L (136-145)
== END 2021-11-14 17:14 | disposition home or self-care (01) ==
LOC: NCHCN 17:13
PROVIDERS: PCP Family Medicine; Visit Provider Family Medicine
DX: I48.0 Paroxysmal atrial fibrillation (principal); I50.9 Heart failure, unspecified
CPT/HCPCS: 80048; 83735

== ENCOUNTER → 2022-02-05 03:32 | Outpatient (CLI) | payer MEDICARE, SELFPAY ==
--- NOTE | 2022-02-05 11:00 | DI.RAD_ITS ---
Exam(s) XR LUMBAR SPINE COMPLETE EXAM: XR LUMBAR SPINE COMPLETE CLINICAL HISTORY: CHRONIC LBP, M54.5. TECHNIQUE: 2D digital imaging was performed of the lumbar spine. Six images were obtained. AP, lat eral, right oblique, left oblique and L5-S1 spot views were obtained. COMPARISON: CR XR LUMBAR SPINE COMPLETE from 10/01/[address] CHEST PE CTA from 10/24/2021 FINDINGS: BONES: No fracture or destructive lesion. There are endplate osteophytes throughout the lumbar spine but most marked at L4-5 and L5-S1. Degenerative changes of the facets are seen at L4-5 and L5-S1. DISKS: There is disc space narrowing at L4-5 and L5-S1. ALIGNMENT: Lumbar spinal alignment is within normal limits. No spondylolysis or spondylolisthesis. SOFT TISSUE: Atherosclerosis is present. IMPRESSION: Moderately severe degenerative changes in the lumbar spine. DATA REPOSITORY: RADIATION DOSE DELIVERED:
--- NOTE | 2022-02-05 11:00 | DI.RAD_ITS ---
Exam(s) XR CHEST 2V PA LATERAL EXAM: XR CHEST 2V PA LATERAL CLINICAL HISTORY: PAROXYSMAL ATRIAL FIBRILLATION, I48.0 TECHNIQUE: 2D digital imaging was performed of the chest. Three images were obtained. PA and later al views were obtained. COMPARISON: CR,XR XR CHEST 2V PA LATERAL from 08/06/2019 FINDINGS: MEDIASTINUM: Normal. HEART: Unchanged cardiomegaly. PULMONARY VASCULATURE: Normal. LUNGS: No focal consolidating infiltrates. There are chronic appearing underlying fibrotic changes. The lungs appear hyperinflated with flattened diaphragms suggesting underlying COPD. PLEURAL SPACE: No pleural effusion or pneumothorax. BONE:Within normal limits for the patient's age. OTHER FINDINGS:Normal. IMPRESSION: No acute pulmonary findings. DATA REPOSITORY: RADIATION DOSE DELIVERED:
== END ==
PROVIDERS: PCP Family Medicine; Visit Provider Family Medicine
DX: M47.816 Spondylosis without myelopathy or radiculopathy, lumbar region (principal); I48.0 Paroxysmal atrial fibrillation
CPT/HCPCS: 71046; 72110

== ENCOUNTER 2022-05-13 18:18 | Outpatient (REF) | payer MEDICARE, SELFPAY ==
[2022-05-13 15:27] LABS: HCT 34.7 % (36.0-46.0)
[2022-05-13 16:04] LABS: ALT 15 U/L (14-59); AST 22 U/L (15-37); Albumin 2.7 g/dL (3.4-5.0); Alkaline Phosphatase 101 U/L (46-116); Anion Gap 2.1 mmol/L (3-11); BUN 16 mg/dL (7-18); Bilirubin, Total 0.5 mg/dL (0.2-1.0); CO2 34.9 mmol/L (21.0-32.0); Calcium 8.7 mg/dL (8.5-10.1); Chloride 102 mmol/L (98-107); Glucose 111 mg/dL (74-106); Potassium 3.7 mmol/L (3.5-5.1); Sodium 139 mmol/L (136-145); TSH (W/Ref FT4) 10.96 uIU/mL (0.36-3.74); Total Protein 7.5 g/dL (6.4-8.2)
[2022-05-13 16:30] LABS: FREE T4 1.11 ng/dL (0.76-1.46)
[2022-05-16 12:18] LABS: Ferritin 107 ng/mL (8-252)
== END 2022-05-13 18:19 | disposition home or self-care (01) ==
LOC: NCHCN 18:18
PROVIDERS: PCP Family Medicine; Visit Provider Family Medicine
DX: I10 Essential (primary) hypertension (principal); E03.9 Hypothyroidism, unspecified; Z79.01 Long term (current) use of anticoagulants; Z86.2 Personal history of diseases of the blood and blood-forming organs and certain disorders involving the immune mechanism
CPT/HCPCS: 80053; 82728; 84439; 84443; 85014; 85018

== ENCOUNTER 2022-05-31 04:33 | Inpatient (IN) | payer MEDICARE, SELFPAY ==
[2022-05-31] VITALS (34 sets, daily range): BP systolic 133–177; BP diastolic 42–121; PULSE 69–123; RESP 15–40; TEMP 35.6–36.6; O2SAT 86–96
--- NOTE | 2022-05-31 04:30 | RT.EKG_ITS ---
APPROVED REPORT Exam: Resting ECG Reason for Exam: chest pain Patient Location: E HR:122 bpm ECG Measurements Heart Rate 122 AXIS MT [id number] P [id number] QRSd 94 QRS 14 QT 338 T [id number] QTc 482 Conclusion Atrial fibrillation.
--- NOTE | 2022-05-31 04:45 | DI.RAD_ITS ---
Exam(s) XR PORTABLE CHEST AP EXAM: XR PORTABLE CHEST AP CLINICAL HISTORY: SOB, edema. TECHNIQUE: 2D digital imaging was performed. COMPARISON: CT CT CHEST PE CTA from 10/24/2021 CR XR CHEST 2V PA LATERAL from 02/05/2022 FINDINGS: Single AP portable view. Cardiomegaly again noted. Mediastinum is not widened. Emphysematous COPD findings again noted. There is interstitial pulmonary edema. No large pleural effusions. Mild blunting of the costophreni c angles may indicate small pleural effusions. IMPRESSION: Cardiomegaly. Interstitial pulmonary edema.COPD-emphysema. DATA REPOSITORY: RADIATION DOSE DELIVERED: All CT scans at this facility use at least one of these dose optimization techniques: automated exposure control; mA and/or kV adjustment per patient size (includes targeted e xams where dose is matched to clinical indication); or iterative reconstruction.
--- NOTE | 2022-05-31 04:50 | W.ED.GENAD ---
Discharge Plan Disposition Patient Disposition: [facility] INPATIENT Condition: Improving Discharge Details Clinical Impression: CHF (congestive heart failure) Primary Care Provider: Ginny Scherer V ED Provider: David Becerra Home Meds and New Rx's Prescriptions: No Action Myrbetriq 25 mg tablet extended release 24 hr 25 mg PO DAILY tramadol 50 mg tablet 50 mg PO Q4H PRN (Reason: pain) Qty: 28 0RF levothyroxine [Levoxyl] 100 MCG tablet 100 mcg PO DAILY latanoprost 2.5 ML drops 1 drp Ophthalmic HS warfarin 2.5 MG tablet 2.5 mg PO DAILY Rx Instructions: 2.5 MG M-W-F-S 5mg [id number] furosemide [Lasix] 20 MG tablet 20 mg PO BID nystatin (bulk) 1 EACH powder 1 ea Miscellaneous DAILY 30 Days Qty: 1 1RF tizanidine 2 mg tablet See Rx Instructions .ROUTE .COMPLEX Qty: 16 0RF Dose Instruction: TAKE 1 TABLET BY MOUTH AT BEDTIME NEEDED FOR MUSCLE SPASTICITY Rx Instructions: TAKE 1 TABLET BY MOUTH AT BEDTIME NEEDED FOR MUSCLE SPASTICITY Trelegy Ellipta 100-62.5-25 mcg Blister With Device 1 inh INHALATION DAILY famotidine 20 mg Tablet 20 - 40 mg PO DAILY acetaminophen 500 mg tablet 500 mg PO Q6H PRN (Reason: pain) Qty: 60 2RF docusate sodium [Colace] 100 mg capsule 100 mg PO BID Qty: 30 0RF naproxen 375 mg tablet 375 mg PO BID PRNQty: 60 2RF pramipexole 0.125 mg tablet 0.125 - 0.25 mg PO HS PRN (Reason: Restless Leg(S)) Label Comments: TAKE 1 TO 2 TABLETS BY MOUTH AT BEDTIME IF NEEDED FOR RESTLESS LEGS cyanocobalamin (vitamin B-12) [Vitamin B-12] 1,000 mcg tablet 1,000 mcg PO DAILY Label Comments: TAKE 1 TABLET BY MOUTH ONCE DAILY metoprolol succinate 50 mg tablet extended release 24 hr 50 mg PO BID Label Comments: TAKE 1 TABLET BY MOUTH TWICE DAILY amiodarone 200 mg tablet 200 mg PO DAILY Label Comments: TAKE 1 TABLET BY MOUTH ONCE DAILY AFTER FIRST WEEK FOR MAINTENANCE losartan 100 mg tablet 50 mg PO BID Label Comments: TAKE 1 TABLET BY MOUTH ONCE DAILY methocarbamol 500 mg tablet 500 mg PO Q6H PRN (Reason: muscle spasm) Qty: 14 0RF bupropion HCl 100 mg tablet sustained-release 12 hr 100 mg PO BID Label Comments: TAKE 1 TABLET BY MOUTH TWICE DAILY Medical Decision Making 81-year-old female presents from home via EMS. She has had peripheral edema that has been building over days time and states she has had exertional shortness of breath that is worsened over 2 days time. She woke up this morning unable to breathe and called EMS. She was given a DuoNeb updraft and brought to the ER. Patient's initial oxygenation is 86% on 3 L. Patient placed on a pull socket assembler, IV access established and she is referred for chest x-ray and laboratory testing. Chest x-ray shows pulmonary edema. Her laboratories note a BNP of 3347, a normal troponin. Magnesium of 1.7. And notes BUN 18 with creatinine 1.1. CBC is reassuring. Diuresis initiated with parenteral Lasix. Consistent with acute exacerbation of CHF. Patient will benefit from admission. HPI General Mode of arrival: EMS. Date/Time Provider Initiated Documentation: 05/31/22 04:44. Limitations to Documentation: no limitations. Information obtained by: patient and EMS. History of Present Illness 81 year old F presents to the emergency department with the chief complaint of Shortness of breath, mild chest pressure, leg edema, described as moderate, and is localized to the chest. Patient started experiencing this day(s) and it has been intermittent. Rest improves symptom(s), Movement worsens symptoms and Other factors that worsen symptoms (Lying flat) . Patient notes chest pain, cough and shortness of breath; denies fever/chills. Patient did receive the following treatments prior to arrival, other (Duoneb) Related Data Home Medications Medication Instructions Recorded Confirmed Levoxyl 100 mcg tablet 100 mcg PO DAILY 07/11/13 05/31/22 (levothyroxine) furosemide 20 mg tablet (Lasix) 20 mg PO BID 01/19/18 05/31/22 latanoprost 0.005 % eye drops 1 drp ophthalmic (eye) HS 01/19/18 05/31/22 warfarin 2.5 mg tablet 2.5 mg PO DAILY 01/19/18 05/31/22 nystatin (bulk) 500 million unit 1 ea miscellaneous DAILY 30 days 02/05/18 05/31/22 powder ##1 fluticasone fur. 100 mcg-umeclid 1 inh inhalation DAILY 03/02/19 05/31/22 62.5 mcg-vilant 25 mcg inhalat.powder (Trelegy Ellipta) mirabegron 25 mg tablet,extended 25 mg PO DAILY 05/11/20 05/31/22 release 24 hr (Myrbetriq) famotidine 20 mg tablet 20 - 40 mg PO DAILY 05/28/20 05/31/22 acetaminophen 500 mg tablet 500 mg PO Q6H PRN pain #60 tabs 05/30/20 05/31/22 amiodarone 200 mg tablet 200 mg PO DAILY 05/30/20 05/31/22 cyanocobalamin (vitamin B-12) 1,000 mcg PO DAILY 05/30/20 05/31/22 1,000 mcg tablet (Vitamin B-12) docusate sodium 100 mg capsule 100 mg PO BID #30 caps 05/30/20 05/31/22 (Colace) losartan 100 mg tablet 50 mg PO BID 05/30/20 05/31/22 metoprolol succinate 50 mg 50 mg PO BID 05/30/20 05/31/22 tablet,extended release 24 hr naproxen 375 mg tablet 375 mg PO BID PRN #60 tabs 05/30/20 05/31/22 pramipexole 0.125 mg tablet 0.125 - 0.25 mg PO HS PRN Restless 05/30/20 05/31/22 Leg(S) tramadol 50 mg tablet 50 mg PO Q4H PRN pain #28 tabs 06/11/20 05/31/22 methocarbamol 500 mg tablet 500 mg PO Q6H PRN muscle spasm #14 07/12/20 05/31/22 tabs bupropion HCl 100 mg tablet,12 hr 100 mg PO BID 10/24/21 05/31/22 sustained-release tizanidine 2 mg tablet See Rx Instructions .Route 04/15/22 05/31/22 .COMPLEX #16 tabs Previous Rx's Medication Instructions Recorded nystatin (bulk) 500 million unit 1 ea miscellaneous DAILY 30 days 02/05/18 powder ##1 acetaminophen 500 mg tablet 500 mg PO Q6H PRN pain #60 tabs 05/30/20 docusate sodium 100 mg capsule 100 mg PO BID #30 caps 05/30/20 (Colace) naproxen 375 mg tablet 375 mg PO BID PRN #60 tabs 05/30/20 tramadol 50 mg tablet 50 mg PO Q4H PRN pain #28 tabs 06/11/20 methocarbamol 500 mg tablet 500 mg PO Q6H PRN muscle spasm #14 07/12/20 tabs tizanidine 2 mg tablet See Rx Instructions .Route 04/15/22 .COMPLEX #16 tabs Allergies Allergy/AdvReac Type Severity Reaction Status Date / Time adhesive Allergy Severe skin rash, Verified 05/31/22 04:42 blisters lisinopril Allergy Intermediate Verified 05/31/22 04:42 amoxicillin [Amoxicillin] Allergy Mild TINGLING Verified 05/31/22 04:42 oxybutynin Allergy Unknown PT CAN'T Verified 05/31/22 04:42 REMEMBER General Stated Complaint: Chest Pain CECILIA: 2 Review of Systems Narrative: Chronic cough that is unchanged. Feels she has weight gain but not specific about that. 3 L home oxygen states her normal oxygenation is approximately 89%. 7 systems reviewed and otherwise negative PFSH All Active Problems Renal insufficiency, mild (Acute) Elevated liver transaminase level (Acute) Hypomagnesemia (Acute) Discharge planning issues (Acute) CHF (congestive heart failure) (Chronic) Status post total right knee replacement (Acute 05/30/20) Abnormal breast finding (Acute 01/19/18) Adenoma of colon (Acute 01/19/18) Bruising (Acute 01/19/18) Chronic depression (Acute 01/19/18) Degenerative arthritis of right knee (Chronic 04/23/15) Disorder of vulva (Acute 01/19/18) Edema leg (Acute 01/19/18) Obesity (Acute 07/11/13) Osteoarthritis (Acute 07/11/13) Other forms of dyspnea (Acute 01/19/18) Overactive bladder (Acute 01/19/18) Primary osteoarthritis of both knees (Chronic 10/29/15) Synvisc injection: 11/04/2019; 05/03/2019 Shortness of breath (Acute 01/19/18) Tendinitis of left shoulder (Acute 01/07/16) Rectal hemorrhage (Acute) Acute on chronic diastolic heart failure (Acute) Chest pain (Acute) Atrial fibrillation (Chronic) SOB (shortness of breath) (Acute) CHF (congestive heart failure) (Chronic) Cough (Acute) Right rotator cuff tendonitis (Acute) Medical History Acute exacerbation of CHF (congestive heart failure) AF (paroxysmal atrial fibrillation) (01/19/18) Cataracts, bilateral Chronic obstructive lung disease (07/11/13) Depression Essential hypertension (07/11/13) H/O adenomatous polyp of colon History of cardioversion Hypertension Hypothyroidism (07/11/13) Morbid obesity Noncompliance with medication regimen Osteoarthritis Tendonitis surgery r arm Surgical History Abdominal hysterectomy H/O colonoscopy x2 H/O: hysterectomy History of carpal tunnel release r wrist Family History Other Heart disease Social History (Updated 05/31/22 @ 06:43 by Cristian Huertas) Smoking/Tobacco Use Status: Former Tobacco Use Smoking risk assessment performed?: Yes Alcohol Intake: former Drug use: Never Substance use type: does not use Current gender identity: female Do you feel safe at home: Yes Do you feel safe in your relationship?: Yes Additional Social history: Lives in [place] with Ed who is starting to have cognitive problems. They have financial issues Exam Narrative Exam Narrative: GEN: awake, alert, oriented 3. Pleasant, well groomed, interactive. HEAD: Normocephalic, atraumatic ENT: Mucous membranes moist, oropharynx unremarkable, External ear exam unremarkable EYES: PERRL, EOMI NECK: Full ROM, no FRANCESCA, no menigismus CHEST/RESP: Nontender, basilar rales CARDIOVASCULAR: Distant, irregularly irregular, borderline tachycardia, no murmur, rub antwan. 2+ Rad pulse bilateral ABDOMEN: Soft, nontender, no mass. +Bowel sounds EXT: Full ROM, bilateral pitting edema Neuro: Grossly normal neurologic exam, conversant, interactive. Psych: Speech fluent, thoughts congruent, affect normal Course Vital Signs Vital signs: Vital Signs Temperature 36.6 C 05/31/22 04:33 Pulse 103 H 05/31/22 04:33 Respiratory Rate 22 05/31/22 04:33 Blood Pressure 177/115 H 05/31/22 04:33 Pulse Oximetry 86 L 05/31/22 04:33 Temperature 36.6 C 05/31/22 04:33 Temperature Source Temporal Artery Scan 05/31/22 04:33 Pulse 103 H 05/31/22 04:33 Respiratory Rate 22 05/31/22 04:44 Respiratory Effort 05/31/22 04:44 Respiratory Depth Normal 05/31/22 04:44 Respiratory Pattern Normal 05/31/22 04:44 Blood Pressure 177/115 H 05/31/22 04:33 Blood Pressure Position Sitting 05/31/22 04:33 Pulse Oximetry 86 L 05/31/22 04:33 Oxygen Delivery Method Nasal Cannula 05/31/22 04:33 Oxygen Flow Rate 3 05/31/22 04:33
[2022-05-31 05:02] LABS: Abs Immature Grans 0.03 10^3/uL (0.0-0.06); Absolute Basophil Count 0.05 10^3/uL (0.0-0.2); Absolute Eosinophil Count 0.26 10^3/uL (0.0-0.7); Absolute Lymphocyte Count 0.91 10^3/uL (1.2-3.4); Absolute Monocyte Count 0.54 10^3/uL (0.1-0.8); Absolute Neutrophil Count 5.61 10^3/uL (1.2-6.7); Basophils % 0.7; Eosinophils % 3.5; HCT 36.6 % (36.0-46.0); HGB 11.2 g/dL (11.2-15.7); Immature Grans % 0.4; Lymphocytes % 12.3; MCH 32.7 pg (27.0-33.0); MCHC 30.6 % (32.0-36.0); MCV 107 fL (80-95); MPV 10.1 fL (8.0-11.0); Monocytes % 7.3; Neutrophils % 75.8; Platelet Count 221 10^3/uL (130-400); RBC 3.43 10^6/uL (3.93-5.22); RDW-SD 59.6 fL
[2022-05-31 05:11] LABS: Basophilic Stippling Present; Macrocytosis 3+
[2022-05-31] MEDS: Furosemide 20 MG/2 ML VIAL IVP ×3 (05:19→15:50)
[2022-05-31 05:21] LABS: ALT 33 U/L (14-59); AST 57 U/L (15-37); Albumin 2.8 g/dL (3.4-5.0); Alkaline Phosphatase 133 U/L (46-116); Anion Gap 6.2 mmol/L (3-11); BUN 18 mg/dL (7-18); Bilirubin, Total 0.7 mg/dL (0.2-1.0); CO2 32.8 mmol/L (21.0-32.0); CREATININE 1.1 mg/dL (0.55-1.02); Calcium 8.8 mg/dL (8.5-10.1); Chloride 102 mmol/L (98-107); Estimated GFR 50.48 (mL/min/1.73m2); Glucose 155 mg/dL (74-106); Magnesium 1.7 mg/dL (1.8-2.4); NT-proBNP 3347 pg/mL (<300); Sodium 141 mmol/L (136-145); Total Protein 8.2 g/dL (6.4-8.2); Troponin I < 50 ng/L (<or=60)
[2022-05-31 05:42] LABS: Prothrombin Time 27.9 sec (9.3-11.0)
[2022-05-31 05:51] LABS: COVID-19 PCR Negative (Negative); Influenza A PCR Negative (Negative); Influenza B PCR Negative (Negative); RSV PCR Negative (Negative)
[2022-05-31] MEDS: MAGNESIUM SULFATE 1 GM/100 ML BAG IVPB (05:51)
[2022-05-31 06:03] LABS: Source Nasopharynx
--- NOTE | 2022-05-31 06:07 | W.PM.HP.N ---
Date of service: 05/31/22 Time of Service: 06:07 Assessment and Plan Assessment and plan (1) CHF (congestive heart failure): Status: Chronic Assessment and plan: I agree with Dr. Becerra that overall picture most consistent with CHF exacerbation, likely caused by going back into atrial fibrillation. Her last LVEF was in Feburary and did show a slight reduction. However her therapy has been limited by the expense of the new standard medications. She would be a good candidate for SGLT-2 in particular. For now, continue diuresis wiht furosemide. She does respond well to 20mg IV. Continue metoprolol, ARB. Could consider spironolactone. (2) Atrial fibrillation: Status: Chronic Assessment and plan: I do think Afib is playing a role in her CHF, though not exactly rapids in the 100s-120s. I'm not sure it makes sense to continue with rhythm control strategy, cardiology consult would be helpful when available. For now, continue metoprolol and amiodarone She is anticoagulated on warfarin, at goal with INR 3, continue to monitor. (3) Hypothyroidism: Assessment and plan: Evolving in association with amiodarone use. Not on therapy now after noted last month, repeat Qualifiers: Hypothyroidism type: acquired Qualified Code(s): E03.9 - Hypothyroidism, unspecified (4) Chronic obstructive lung disease: Assessment and plan: I don't think COPD exacerbation is playing a major role, continue outpatient trelegy. Qualifiers: COPD type: unspecified COPD Qualified Code(s): J44.9 - Chronic obstructive pulmonary disease, unspecified (5) Hypomagnesemia: Status: Acute Assessment and plan: replace IV, follow (6) Elevated liver transaminase level: Status: Acute Assessment and plan: Likely a/w CHF but she is at risk for GONZALEZ and her albumin is low. Consider fibrosis assessment as outpatient along with routine work up (7) Renal insufficiency, mild: Status: Acute Assessment and plan: Monitor closely, just slightly above baseline in setting of CHF. (8) Discharge planning issues: Status: Acute Assessment and plan: Stable for floor with telemetry for CHF. Full code History of Present Illness History of Present Illness Chief Complaint: SOB Narrative: 81 yo F with history of CHF with borderline LVEF of 45-50% on October 2021 echocardiogram, atrial fibrillation on warfarin, COPD who is presenting after waking up from sleep at about 3:30am with shortness of breath and some pressure in her chest. She has felt this way before when she was admitted to the hospital. She can't tell for sure if it is her atrial fibrillation but she thinks so. No recent changes in medication or diet. She is taking her furosemide and it makes her urinate at lot. She has noted increased LE edema over the past several days. Chest heaviness, not pain, stays in her mid chest, no radiation. Of note, her doctor triedto give her farxiga but she couldn't afford it. She monitors warfarin with home INR, stable. No recent bleeding. She was here with similar presentation in october. Review of Systems Constitutional Constitutional: Denies chills, Denies fever(s), Reports lethargy and Denies weakness Eyes Eyes: Reports change in vision (glasses changing, no acute) and Denies irritation ENT Ears, Nose, Mouth, and Throat: Denies dizziness, Denies nasal congestion, Denies nasal discharge and Denies sore throat Comments: mouth dry, not new Cardiovascular Cardiovascular: Reports as per HPI, Denies acrocyanosis, Reports dyspnea on exertion, Reports orthopnea and Reports paroxysmal nocturnal dyspnea Respiratory Respiratory: Denies change in phlegm color, Reports cough, Denies hemoptysis and Reports dyspnea on exertion Gastrointestinal Gastrointestinal: Denies abdominal pain, Denies melena, Denies hematochezia, Denies heartburn, Denies diarrhea and Denies vomiting Genitourinary Genitourinary: Denies hematuria and Denies dysuria Musculoskeletal Musculoskeletal: Reports other (no new pains) Integumentary/Breasts Skin/Breast: Denies rash and Denies skin ulcer Neurologic Neurologic: Denies confusion, Denies dizziness, Denies sensory deficit and Denies weakness Psychiatric Psychiatric: Denies confusion, Denies mood swings and Denies panic attacks Hematologic/Lymphatic Hematologic/Lymphatic: Denies easy bleeding PFSH All Active Problems Renal insufficiency, mild (Acute) Elevated liver transaminase level (Acute) Hypomagnesemia (Acute) Discharge planning issues (Acute) CHF (congestive heart failure) (Chronic) Status post total right knee replacement (Acute 05/30/20) Abnormal breast finding (Acute 01/19/18) Adenoma of colon (Acute 01/19/18) Bruising (Acute 01/19/18) Chronic depression (Acute 01/19/18) Degenerative arthritis of right knee (Chronic 04/23/15) Disorder of vulva (Acute 01/19/18) Edema leg (Acute 01/19/18) Obesity (Acute 07/11/13) Osteoarthritis (Acute 07/11/13) Other forms of dyspnea (Acute 01/19/18) Overactive bladder (Acute 01/19/18) Primary osteoarthritis of both knees (Chronic 10/29/15) Synvisc injection: 11/04/2019; 05/03/2019 Shortness of breath (Acute 01/19/18) Tendinitis of left shoulder (Acute 01/07/16) Rectal hemorrhage (Acute) Acute on chronic diastolic heart failure (Acute) Chest pain (Acute) Atrial fibrillation (Chronic) SOB (shortness of breath) (Acute) CHF (congestive heart failure) (Chronic) Cough (Acute) Right rotator cuff tendonitis (Acute) Medical History Acute exacerbation of CHF (congestive heart failure) AF (paroxysmal atrial fibrillation) (01/19/18) Cataracts, bilateral Chronic obstructive lung disease (07/11/13) Depression Essential hypertension (07/11/13) H/O adenomatous polyp of colon History of cardioversion Hypertension Hypothyroidism (07/11/13) Morbid obesity Noncompliance with medication regimen Osteoarthritis Tendonitis surgery r arm Surgical History Abdominal hysterectomy H/O colonoscopy x2 H/O: hysterectomy History of carpal tunnel release r wrist Family History Other Heart disease Social History (Updated 05/31/22 @ 06:43 by Cristian Huertas) Smoking/Tobacco Use Status: Former Tobacco Use Smoking risk assessment performed?: Yes Alcohol Intake: former Drug use: Never Substance use type: does not use Current gender identity: female Do you feel safe at home: Yes Do you feel safe in your relationship?: Yes Additional Social history: Lives in [place] with Ed who is starting to have cognitive problems. They have financial issues Meds Allergies and Home Medications Allergies Allergy/AdvReac Type Severity Reaction Status Date / Time adhesive Allergy Severe skin rash, Verified 05/31/22 04:42 blisters lisinopril Allergy Intermediate Verified 05/31/22 04:42 amoxicillin [Amoxicillin] Allergy Mild TINGLING Verified 05/31/22 04:42 oxybutynin Allergy Unknown PT CAN'T Verified 05/31/22 04:42 REMEMBER Home Medications Medication Instructions Recorded Confirmed Type Levoxyl 100 mcg tablet 100 mcg PO DAILY 07/11/13 05/31/22 History (levothyroxine) furosemide 20 mg tablet (Lasix) 20 mg PO BID 01/19/18 05/31/22 History latanoprost 0.005 % eye drops 1 drp ophthalmic (eye) HS 01/19/18 05/31/22 History warfarin 2.5 mg tablet 2.5 mg PO DAILY 01/19/18 05/31/22 History nystatin (bulk) 500 million unit 1 ea miscellaneous DAILY 30 days 02/05/18 05/31/22 Rx powder ##1 fluticasone fur. 100 mcg-umeclid 1 inh inhalation DAILY 03/02/19 05/31/22 History 62.5 mcg-vilant 25 mcg inhalat.powder (Trelegy Ellipta) mirabegron 25 mg tablet,extended 25 mg PO DAILY 05/11/20 05/31/22 History release 24 hr (Myrbetriq) famotidine 20 mg tablet 20 - 40 mg PO DAILY 05/28/20 05/31/22 History acetaminophen 500 mg tablet 500 mg PO Q6H PRN pain #60 tabs 05/30/20 05/31/22 Rx amiodarone 200 mg tablet 200 mg PO DAILY 05/30/20 05/31/22 History cyanocobalamin (vitamin B-12) 1,000 mcg PO DAILY 05/30/20 05/31/22 History 1,000 mcg tablet (Vitamin B-12) docusate sodium 100 mg capsule 100 mg PO BID #30 caps 05/30/20 05/31/22 Rx (Colace) losartan 100 mg tablet 50 mg PO BID 05/30/20 05/31/22 History metoprolol succinate 50 mg 50 mg PO BID 05/30/20 05/31/22 History tablet,extended release 24 hr naproxen 375 mg tablet 375 mg PO BID PRN #60 tabs 05/30/20 05/31/22 Rx pramipexole 0.125 mg tablet 0.125 - 0.25 mg PO HS PRN Restless 05/30/20 05/31/22 History Leg(S) tramadol 50 mg tablet 50 mg PO Q4H PRN pain #28 tabs 06/11/20 05/31/22 Rx methocarbamol 500 mg tablet 500 mg PO Q6H PRN muscle spasm #14 07/12/20 05/31/22 Rx tabs bupropion HCl 100 mg tablet,12 hr 100 mg PO BID 10/24/21 05/31/22 History sustained-release tizanidine 2 mg tablet See Rx Instructions .Route 04/15/22 05/31/22 Rx .COMPLEX #16 tabs Exam Narrative Exam Narrative: GEN: Alert and oriented, pleasant and cooperative, gives linear history. Sitting in bed at 45 degrees, with O2 in place. No acute distress at rest. HEENT: Head atraumatic. Conjunctiva clear, no icterus. PEERL, EOMI. no rhinorrhea. MMM, OP benign. Neck is supple with no masses or lymphadenopathy, trachea midline LUNGS: Rales 1/[address] up lung jayleen posterior lung dubois, some wheezing above that diffusely. Mild dyspnea noted with movement and full sentances CV: irregularly irregular with no murmurs, gallops, or rubs, though distant. pedal pulses intact. ABD: +BS, soft, NT/ND EXT: no cyanosis, clubbing. 1-2+ jayleen LE edema to shins MSK: No joint redness or swelling NEURO: CN 2-12 grossly intact. Normal movement of 4 extremities. Normal speech and coordination SKIN: No rashs or open wounds, pink thickened skin ankles in venous distribution PSYCH: normal mood and affect Results Imaging Chest x-ray: image reviewed (increased interstial bases, CHF) EKG: image reviewed (afib, no ischemic ST-T abnormalities) Labs Result diagrams: 05/31/22 04:55 05/31/22 04:55 Labs: Laboratory Results - last 24 hr 05/31/22 05/31/22 05/31/22 04:55 04:55 04:55 WBC 7.40 RBC 3.43 L Hgb 11.2 Hct 36.6 MCV 107 H MCH 32.7 MCHC 30.6 L RDW 15.0 H Plt Count 221 MPV 10.1 Immature Gran % 0.4 Neutrophils % 75.8 Lymphocytes % 12.3 Monocytes % 7.3 Eosinophils % 3.5 Basophils % 0.7 Nucleated RBC % 0.0 Absolute Neutrophils 5.61 Absolute Lymphocytes 0.91 L Absolute Monocytes 0.54 Absolute Eosinophils 0.26 Absolute Basophils 0.05 Basophilic Stippling Present Macrocytosis 3+ PT 27.9 H INR 3.0 H Sodium 141 Potassium 4.0 Chloride 102 Carbon Dioxide 32.8 H Anion Gap 6.2 BUN 18 Creatinine 1.1 H Est GFR (CKD-EPI 2020) 50.48 Glucose 155 H Calcium 8.8 Magnesium 1.7 L Total Bilirubin 0.7 AST 57 H ALT 33 Alkaline Phosphatase 133 H Troponin I < 50 NT-Pro-B Natriuret Pep 3347 H Total Protein 8.2 Albumin 2.8 L COVID-19 Source SARS-CoV-2 (PCR) Influenza Type A (PCR) Influenza Type B (PCR) RSV (PCR) 05/31/22 05:10 WBC RBC Hgb Hct MCV MCH MCHC RDW Plt Count MPV Immature Gran % Neutrophils % Lymphocytes % Monocytes % Eosinophils % Basophils % Nucleated RBC % Absolute Neutrophils Absolute Lymphocytes Absolute Monocytes Absolute Eosinophils Absolute Basophils Basophilic Stippling Macrocytosis PT INR Sodium Potassium Chloride Carbon Dioxide Anion Gap BUN Creatinine Est GFR (CKD-EPI 2020) Glucose Calcium Magnesium Total Bilirubin AST ALT Alkaline Phosphatase Troponin I NT-Pro-B Natriuret Pep Total Protein Albumin COVID-19 Source Nasopharynx SARS-CoV-2 (PCR) Negative Influenza Type A (PCR) Negative Influenza Type B (PCR) Negative RSV (PCR) Negative Last Vital Signs Temp 36.6 C 05/31/22 04:33 Pulse 115 H 05/31/22 05:31 Resp 24 05/31/22 05:31 BP 169/96 H 05/31/22 05:31 Pulse Ox 86 L 05/31/22 04:33
[2022-05-31 06:23] LABS: Diff Comment RBC Morph Reviewed
[2022-05-31 06:46] LABS: TSH (W/Ref FT4) 8.66 uIU/mL (0.36-3.74)
[2022-05-31 07:06] LABS: FREE T4 1.29 ng/dL (0.76-1.46)
--- NOTE | 2022-05-31 07:34 | DI.VRAD_ITS ---
PROCEDURE INFORMATION: Exam: XR Chest Exam date and time: 05/31/2022 4:55 AM Age: 81 years old Clinical indication: Shortness of breath and other: Edema; Additional info: SOB, edema TECHNIQUE: Imaging protocol: Radiologic exam of the chest. Views: 1 view. COMPARISON: CR XR CHEST 2V PA LATERAL 02/05/2022 11:04 AM FINDINGS: Lungs: Hyperinflation changes in the lungs are again noted with increasing density in the mid to lower lung zones right greater than left which could be due to infiltrates. The interstitial markings are more pronounced. Pleural spaces: New blunting of the angles without pneumothorax. Heart/Mediastinum: Heart size remains enlarged. The mediastinum is not widened. Bones/joints: Osteopenia and degenerative changes without acute fracture. IMPRESSION: Alveolar and interstitial densities with pleural fluid. Evolving edema with underlying infiltrates not excluded. Follow-up to resolution recommended. Dictated and Authenticated by: Richard Cruz MD. Ordering:OMKAR Hernandez MD
[2022-05-31] MEDS: Famotidine 20 MG TAB 40 MG PO (09:10)
[2022-05-31] MEDS: Cyanocobalamin 500 MCG TAB 1000 MCG PO (09:10)
[2022-05-31] MEDS: Losartan 50 MG TAB PO ×2 (09:10→21:19)
[2022-05-31] MEDS: buPROPion-CR 100 MG TABCR PO ×2 (09:10→21:19)
[2022-05-31] MEDS: Amiodarone 200 MG TAB PO ×2 (09:10→21:19)
[2022-05-31] MEDS: Metoprolol CR 50 MG TABCR PO (09:10)
[2022-05-31] MEDS: Normal Saline Flush 10 ML SYR IVP ×2 (09:11→15:50)
[2022-05-31] MEDS: Budesonide/Formoterol 80/4.5 6.9 GM 60 PUFF INH IH ×2 (09:15→21:48)
[2022-05-31] MEDS: Tiotropium Bromide-Respimat 10 PUFF INH 2 PUFF IH (09:15)
[2022-05-31 09:47] LABS: Troponin I < 50 ng/L (<or=60)
[2022-05-31 10:23] LABS: Bilirubin Negative (Negative); Blood Negative (Negative); Clarity Clear (Clear); Glucose Negative (Negative); Ketones Negative (Negative); Leukocyte Esterase Negative (Negative); Nitrite Negative (Negative); Urobilinogen 0.2 EU/dL (Up TO 0.2); pH 7.5 (5-8)
[2022-05-31] MEDS: Levothyroxine 100 MCG TAB PO (10:55)
--- NOTE | 2022-05-31 11:04 | INITIAL_ITS ---
- If Service Date Differs Date of service: 05/31/22 Time of Service: 11:04 Care Management Initial Assess REASON FOR HOSPITALIZATION:: CHF Exacerbation PAST MEDICAL HISTORY/PAST SURGICAL HISTORY:: All Active Problems. Discharge planning issues (Acute). Acute exacerbation of CHF (congestive heart failure) (Acute). Breath shortness (Acute). Chest pain (Acute). Noncompliance with medication regimen (Acute). Status post total right knee replacement (Acute 05/30/20). Colon cancer screening (Acute). Abnormal breast finding (Acute 01/19/18). Adenoma of colon (Acute 01/19/18). Bruising (Acute 01/19/18). Chronic depression (Acute 01/19/18). Chronic obstructive lung disease (Acute 07/11/13). Degenerative arthritis of right knee (Chronic 04/23/15). Disorder of vulva (Acute 01/19/18). Edema leg (Acute 01/19/18). Essential hypertension (Acute 07/11/13). Hypothyroidism (Acute 07/11/13). Obesity (Acute 07/11/13). Osteoarthritis (Acute 07/11/13). Other forms of dyspnea (Acute 01/19/18). Overactive bladder (Acute 01/19/18). Primary osteoarthritis of both knees (Chronic 10/29/15). Synvisc injection: 11/04/2019; 05/03/2019. Shortness of breath (Acute 01/19/18). Tendinitis of left shoulder (Acute 01/07/16). Rectal hemorrhage (Acute). Acute on chronic diastolic heart failure (Acute). Chest pain (Acute). Atrial fibrillation (Chronic). DVT prophylaxis (Acute). SOB (shortness of breath) (Acute). CHF (congestive heart failure) (Chronic). Cough (Acute). Right rotator cuff tendonitis (Acute). AF (paroxysmal atrial fibrillation) (Chronic 01/19/18). Medical History. AF (paroxysmal atrial fibrillation) (01/19/18). Cataracts, bilateral. COPD (chronic obstructive pulmonary disease). Depression. Edema. H/O adenomatous polyp of colon. History of cardioversion. Hypertension. Hypothyroidism. Morbid obesity. Osteoarthritis. Tendonitis. surgery r arm. Surgical History. Abdominal hysterectomy. H/O colonoscopy. x2. H/O: hysterectomy. History of carpal tunnel release. r wrist PREVIOUS FUNCTIONAL STATUS/SOCIAL/FAMILY SUPPORTS:: Celeste lives in [place] with her , Valentin. Her sister, Annamaria, lives nearby in [place]. Her adult children, grandchildren and great grandchildren all live out of the state. 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 She is independent with ADL's. CURRENT FUNCTIONAL STATUS:: Celeste is sitting up on the side of her bed, RN preparing bariatric walker for her to use. Celeste has expressed wanting information about a W/C for home as well, CM requested PT order. ADVANCE DIRECTIVES:: None on file, DPOA listed as her spouse, Ed. Has patient been provided with info about the portal/API?: Yes Did the patient sign up for the portal?: No CODE STATUS:: DNR/DNI INSURANCE COVERAGE / FINANCIAL ISSUES:: [facility] replacement/ financial assist 100% CURRENT HOME/COMMUNITY SERVICES/EQUIPMENT:: FWW, Oxygen Therapy, ramp, hearing aids, eye glasses. PRIMARY CARE PHYSICIAN:: Ginny Scherer POTENTIAL DISCHARGE NEEDS:: Referrals made earlier this year to [facility], follow up on current connection. Follow up appointments. PATIENT/FAMILY EDUCATION NEEDS:: Review discharge instructions, community based supports. ANTICIPATED BARRIERS TO DISCHARGE:: None identified TRANSPORTATION:: Celeste will transport home via private vehicle with her , Valentin vs [facility] transportation. PLAN:: Anticipate Celeste will return home when medically cleared, with possible increased supports. Her , Valentin will drive her home via private vehicle vs [facility] when ready. She will have a follow up appointment with her PCP, as recommended. CM will continue to follow.
[2022-05-31] MEDS: Nystatin POWDER 60 GM JAR TP (12:42)
[2022-05-31] MEDS: Metoprolol 25 MG TAB PO ×2 (18:13→23:46)
[2022-05-31] MEDS: Pramipexole 0.25 MG TAB PO (21:18)
[2022-05-31] MEDS: Latanoprost 0.005% 2.5 ML BTL OU (21:19)
[2022-06-01] VITALS (8 sets, daily range): BP systolic 138–167; BP diastolic 80–104; PULSE 10–117; RESP 16–18; TEMP 35.9–36.7; O2SAT 92–95
[2022-06-01] MEDS: Metoprolol 25 MG TAB PO ×2 (05:48→12:45)
[2022-06-01] MEDS: Levothyroxine 100 MCG TAB PO (05:48)
[2022-06-01] MEDS: Nystatin POWDER 60 GM JAR TP (07:08)
[2022-06-01 07:39] LABS: INR 2.5 (0.9-1.1)
[2022-06-01 07:46] LABS: BUN 17 mg/dL (7-18); CREATININE 0.9 mg/dL (0.55-1.02); Calcium 8.9 mg/dL (8.5-10.1); Chloride 98 mmol/L (98-107); Estimated GFR 64.23 (mL/min/1.73m2); Glucose 104 mg/dL (74-106); Magnesium 1.7 mg/dL (1.8-2.4); Potassium 3.6 mmol/L (3.5-5.1); Sodium 138 mmol/L (136-145)
[2022-06-01] MEDS: Budesonide/Formoterol 80/4.5 6.9 GM 60 PUFF INH IH ×2 (08:27→19:41)
[2022-06-01] MEDS: Tiotropium Bromide-Respimat 10 PUFF INH 2 PUFF IH (08:27)
[2022-06-01] MEDS: Furosemide 20 MG/2 ML VIAL IVP (08:31)
[2022-06-01] MEDS: Normal Saline Flush 10 ML SYR IVP ×3 (08:31→16:10)
[2022-06-01] MEDS: Losartan 50 MG TAB PO ×2 (08:31→19:41)
[2022-06-01] MEDS: Amiodarone 200 MG TAB PO ×2 (08:32→19:41)
[2022-06-01] MEDS: Docusate Sodium 100 MG CAP PO (08:32)
[2022-06-01] MEDS: buPROPion-CR 100 MG TABCR PO ×2 (08:32→19:40)
[2022-06-01] MEDS: Famotidine 20 MG TAB 40 MG PO (08:32)
[2022-06-01] MEDS: Cyanocobalamin 500 MCG TAB 1000 MCG PO (08:33)
[2022-06-01] MEDS: Magnesium Oxide 400 MG TAB PO ×2 (09:01→19:41)
[2022-06-01] MEDS: Furosemide 40 MG/4 ML VIAL IVP ×2 (12:44→16:10)
--- NOTE | 2022-06-01 15:19 | W.PM.PROGNOT ---
Date of Service Date of service: 06/01/22 Time of Service: 15:20 Assessment and Plan Assessment and plan (1) Atrial fibrillation: Status: Chronic Assessment and plan: patient [place] [facility] [place] she does not want to repeat this. If her afib is now chronic rather than paroxysmal, I see no value to continuing amiodarone therapy given its risks for hepatic, lung and thyroid toxicity. I have switched her Toprol XL to lopressor so that I can titrate her dose. Given her hypertension (SBP 150's to 160's and DBP in low 100's) I will continue to titrate her metoprolol although if her bp remains elevated she may be better on carvedilol. She remains anticoagulated on warfarin w/ INR 2.[address] Rajan to see her and give input on control of her atrial fibrillation and whether or not to contiue w/ her amiodarone. (2) CHF (congestive heart failure): Status: Chronic Assessment and plan: HFmEF w/ LVEF 45 to 50% with akinetic septum mild concentric LVH, moderate MR along with moderate tricuspid regurgitation and mildly dilated right atrium and mildly dilated right ventricle per echocardiogram 10/24/2021. Continue IV Lasix add spironolactone, add Jardiance. Patient is currently on losartan 50 mg twice a day. Once she is adequately diuresed and in a euvolemic state consider switching losartan to Entresto. I will ask Dr. Rajan to evaluate her as the patient was already scheduled to see her as outpatient on 06/09 and it would be helpful to have her involvement on the inpatient management. (3) Hypothyroidism: Assessment and plan: Currently on levothyroxine 100 mcg daily. TSH remains elevated at 8.66. This may be secondary to her amiodarone therapy. We will continue her current dose of levothyroxine and have her PCP follow-up with a repeat levels in 6 to 8 weeks. Qualifiers: Hypothyroidism type: acquired Qualified Code(s): E03.9 - Hypothyroidism, unspecified (4) Chronic obstructive lung disease: Assessment and plan: Not in an acute exacerbation at this point. Continue her home inhalers Qualifiers: COPD type: unspecified COPD Qualified Code(s): J44.9 - Chronic obstructive pulmonary disease, unspecified (5) Elevated liver transaminase level: Status: Acute Assessment and plan: Probably secondary hepatic congestion although cannot exclude amiodarone toxicity. (6) Renal insufficiency, mild: Status: Acute Assessment and plan: improving w/ diuresis (7) Discharge planning issues: Status: Acute Assessment and plan: patient will dc home when optimized from afib and CHF. May or may not need home health. Subjective Subjective Interval history since last seen: Celeste complains of nausea postprandial. No abdominal pain no chest pain or pressure no dyspnea at rest. Still gets dyspneic with activity. She did tolerate getting out of bed and walking to the chair.Still requiring supplemental oxygen at 3 L/min per nasal cannula with saturations in the mid 90s. She was scheduled to see Dr. Rajan for first time appt on 06/09. I told her that we will get updated echocardiogram and have Dr. Rajan see her tomorrow. Exam Narrative Exam Narrative: Patient is alert/oriented x 3, No acute distress, able to speak in complete paragraphs Lungs: still w/ bibasilar rales but upper dubois are clear heart: still irregularly irregular, but rate is more controlled today. Review of telemetry reveals she is mostly in the low 100's. Abdomen: soft, nontender, normal bowel sounds Legs: 1+ pedal edema; chronic stasis skin changes Objective Last Vital Signs Temp 36.7 C 06/01/22 11:30 Pulse 100 H 06/01/22 11:30 Resp 18 06/01/22 11:30 BP 138/104 H 06/01/22 11:30 Pulse Ox 94 06/01/22 11:30 Laboratory Results - last 24 hr 06/01/22 06/01/22 06:25 06:25 PT 24.0 H INR 2.5 H Sodium 138 Potassium 3.6 Chloride 98 Carbon Dioxide 34.0 H Anion Gap 6.0 BUN 17 Creatinine 0.9 Est GFR (CKD-EPI 2020) 64.23 Glucose 104 Calcium 8.9 Magnesium 1.7 L Reviewed Pertinent PMH: Yes
[2022-06-01] MEDS: Metoprolol 25 MG TAB 50 MG PO (18:07)
[2022-06-01] MEDS: Warfarin 1 MG TAB 1.5 MG PO (19:48)
[2022-06-01] MEDS: Latanoprost 0.005% 2.5 ML BTL OU (22:39)
[2022-06-01] MEDS: Pramipexole 0.25 MG TAB PO (22:39)
[2022-06-02] VITALS (8 sets, daily range): BP systolic 142–161; BP diastolic 86–105; PULSE 76–103; RESP 18–20; TEMP 35.7–36.8; O2SAT 92–96
[2022-06-02] MEDS: Metoprolol 25 MG TAB 50 MG PO ×4 (00:04→17:13)
[2022-06-02] MEDS: Levothyroxine 100 MCG TAB PO (05:03)
[2022-06-02] MEDS: Acetaminophen 325 MG TAB PO (05:04)
[2022-06-02 07:26] LABS: INR 2.3 (0.9-1.1); Prothrombin Time 21.6 sec (9.3-11.0)
[2022-06-02 07:41] LABS: BUN 16 mg/dL (7-18); Calcium 8.9 mg/dL (8.5-10.1); Chloride 96 mmol/L (98-107); Glucose 106 mg/dL (74-106); Potassium 3.5 mmol/L (3.5-5.1); Sodium 137 mmol/L (136-145)
[2022-06-02 07:48] LABS: ALT 21 U/L (14-59); AST 20 U/L (15-37); Albumin 2.5 g/dL (3.4-5.0); Alkaline Phosphatase 118 U/L (46-116); Bilirubin, Direct 0.2 mg/dL (0.0-0.2); Bilirubin, Total 1.1 mg/dL (0.2-1.0); Total Protein 7.9 g/dL (6.4-8.2)
[2022-06-02] MEDS: Budesonide/Formoterol 80/4.5 6.9 GM 60 PUFF INH IH ×2 (07:52→21:41)
[2022-06-02] MEDS: Tiotropium Bromide-Respimat 10 PUFF INH 2 PUFF IH (07:52)
[2022-06-02 07:54] LABS: Lab Add On Test DONE
[2022-06-02] MEDS: Amiodarone 200 MG TAB PO (08:05)
[2022-06-02] MEDS: Losartan 50 MG TAB PO ×2 (08:05→19:35)
[2022-06-02] MEDS: buPROPion-CR 100 MG TABCR PO ×2 (08:05→19:35)
[2022-06-02] MEDS: Famotidine 20 MG TAB 40 MG PO (08:05)
[2022-06-02] MEDS: Magnesium Oxide 400 MG TAB PO ×2 (08:05→19:35)
[2022-06-02] MEDS: Cyanocobalamin 500 MCG TAB 1000 MCG PO (08:05)
[2022-06-02] MEDS: Spironolactone 25 MG TAB PO (08:05)
[2022-06-02] MEDS: Nystatin POWDER 60 GM JAR TP (08:06)
[2022-06-02] MEDS: Furosemide 40 MG/4 ML VIAL IVP ×2 (08:06→15:58)
--- NOTE | 2022-06-02 08:56 | CCONE_ITS ---
Date of service: 06/02/22 Time of Service: 08:56 Assessment and Plan Assessment and plan (1) Atrial fibrillation: Status: Chronic Assessment and plan: At this point I think the patient has permanent atrial fibrillation, or at least longstanding. I am unconvinced that she ever had much in the way of sinus rhythm following her cardioversion and she had no subsequent cardiovascular evaluation. I would think that amiodarone could be discontinued and rate control be pursued. She is anticoagulated with warfarin and demonstrates good compliance and understanding in that regard. (2) CHF (congestive heart failure): Status: Chronic Assessment and plan: She has mildly reduced left ventricular systolic function. I think it is unlikely she would be able to afford Entresto. Continue guideline directed medical therapy with metoprolol succinate (also for rate control) and losartan seem appropriate (3) Chronic obstructive lung disease: Assessment and plan: She has had home oxygen for years now, most likely has underlying sleep apnea (never had a sleep study) has evidence of right atrial and right ventricular dysfunction on her echocardiogram. Qualifiers: COPD type: unspecified COPD Qualified Code(s): J44.9 - Chronic obstructive pulmonary disease, unspecified (4) Falls frequently: Status: Acute Assessment and plan: Patient reports that she has fallen 5 times in the last 2 weeks. She should have a physical therapy evaluation to assess fall risk, particularly as she is chronically anticoagulated History of Present Illness History of Present Illness Chief Complaint: Congestive heart failure, atrial fibrillation Narrative: This 81-year-old woman presented to the hospital several days ago with decompensated heart failure. She has multiple medical problems including morbid obesity, oxygen dependent COPD, hypertension, osteoarthritis and atrial fibrillation. She has mild left ventricular dysfunction, last EF was 45 to 50% in October 2021. Her history of atrial fibrillation dates back at least several years. She underwent cardioversion to sinus rhythm at [facility] in early 2019 at which time she was started on amiodarone. She never had follow-up at [facility]. She was hospitalized in October of this year with atrial fibrillation and congestive heart failure; medications were adjusted. That was when her last echocardiogram was performed. She has been maintained on amiodarone. One of the questions related to this consult is whether or not it should be continued Additional questions revolve around heart failure treatment. Medications incl ude metoprolol succinate, losartan. She is on warfarin for stroke prevention due to a combination of cost related to the newer anticoagulants, as well has fear of what would happen should she be in an accident or have bleeding. She has a home monitor, checks her INR weekly. She reports that she has fallen 5 times in the last 2 weeks. She has difficulty walking. This particularly involves her left leg. She has been told that she would be at prohibitive risk for knee replacement. She has home physical therapy. EKG on presentation showed atrial fibrillation with an uncontrolled rate, minor nondiagnostic ST-T abnormalities Consults Consult date: 06/02/22 Requesting physician: Michael Ingram Review of Systems Cardiovascular Cardiovascular: Reports as per HPI, Reports irregular heart rhythm, Reports leg edema, Reports lightheadedness, Reports dyspnea and Reports dyspnea on exertion Respiratory Respiratory: Reports dyspnea and Reports dyspnea on exertion PFSH All Active Problems (Updated 06/02/22 @ 09:07 by Neisha Rajan MD) Falls frequently (Acute) Renal insufficiency, mild (Acute) Elevated liver transaminase level (Acute) Hypomagnesemia (Acute) Discharge planning issues (Acute) CHF (congestive heart failure) (Chronic) Status post total right knee replacement (Acute 05/30/20) Abnormal breast finding (Acute 01/19/18) Adenoma of colon (Acute 01/19/18) Bruising (Acute 01/19/18) Chronic depression (Acute 01/19/18) Degenerative arthritis of right knee (Chronic 04/23/15) Disorder of vulva (Acute 01/19/18) Edema leg (Acute 01/19/18) Obesity (Acute 07/11/13) Osteoarthritis (Acute 07/11/13) Other forms of dyspnea (Acute 01/19/18) Overactive bladder (Acute 01/19/18) Primary osteoarthritis of both knees (Chronic 10/29/15) Synvisc injection: 11/04/2019; 05/03/2019 Shortness of breath (Acute 01/19/18) Tendinitis of left shoulder (Acute 01/07/16) Rectal hemorrhage (Acute) Acute on chronic diastolic heart failure (Acute) Chest pain (Acute) Atrial fibrillation (Chronic) SOB (shortness of breath) (Acute) CHF (congestive heart failure) (Chronic) Cough (Acute) Right rotator cuff tendonitis (Acute) Medical History Acute exacerbation of CHF (congestive heart failure) AF (paroxysmal atrial fibrillation) (01/19/18) Cataracts, bilateral Chronic obstructive lung disease (07/11/13) Depression Essential hypertension (07/11/13) H/O adenomatous polyp of colon History of cardioversion Hypertension Hypothyroidism (07/11/13) Morbid obesity Noncompliance with medication regimen Osteoarthritis Tendonitis surgery r arm Surgical History Abdominal hysterectomy H/O colonoscopy x2 H/O: hysterectomy History of carpal tunnel release r wrist Family History Other Heart disease Social History (Updated 05/31/22 @ 06:43 by Cristian Huertas) Smoking/Tobacco Use Status: Former Tobacco Use Smoking risk assessment performed?: Yes Alcohol Intake: former Drug use: Never Substance use type: does not use Current gender identity: female Do you feel safe at home: Yes Do you feel safe in your relationship?: Yes Additional Social history: Lives in [place] with Ed who is starting to have cognitive problems. They have financial issues Exam Const Other: Obese seen and examined in bed, looks younger than stated age no acute distress Neck Other: Unable to assess JVP carotid pulsations are grossly normal no bruits Resp Other: Decreased breath sounds at the bases bilaterally, crackles Cardio Other: Distant and irregularly irregular no murmur appreciated Extrem Other: Trace edema, evidence of prior more significant edema Results Last Vital Signs Temp 36.1 C L 06/02/22 08:13 Pulse 78 06/02/22 08:13 Resp 18 06/02/22 08:13 BP 159/105 H 06/02/22 08:13 Pulse Ox 96 06/02/22 08:13 Labs Result diagrams: 05/31/22 04:55 06/02/22 06:20 Labs: Laboratory Results - last 24 hr 06/02/22 06/02/22 06/02/22 06:20 06:20 06:20 PT 21.6 H INR 2.3 H Sodium 137 Potassium 3.5 Chloride 96 L Carbon Dioxide 38.0 H Anion Gap 3.0 BUN 16 Creatinine 1.0 Est GFR (CKD-EPI 2020) 56.60 Glucose 106 Calcium 8.9 Magnesium Total Bilirubin 1.1 H Conjugated Bilirubin 0.2 AST 20 ALT 21 Alkaline Phosphatase 118 H Total Protein 7.9 Albumin 2.5 L Add-On Test Request 06/02/22 06/02/22 06:20 06:20 PT INR Sodium Potassium Chloride Carbon Dioxide Anion Gap BUN Creatinine Est GFR (CKD-EPI 2020) Glucose Calcium Magnesium 2.0 Total Bilirubin Conjugated Bilirubin AST ALT Alkaline Phosphatase Total Protein Albumin Add-On Test Request DONE
--- NOTE | 2022-06-02 11:20 | PDOC.CMPRO ---
- If Service Date Differs Date of service: 06/02/22 Time of Service: 11:20 Care Management Progress Note S/O: Celeste is making medical gains, per MD; she is diuresing well. CM continues to follow. A: 81 year old female admitted to [facility] 05/31/22 for CHF exacerbation P: Celeste will return home when medically cleared, with possible increased supports. Her , Valentin will drive her home via private vehicle vs RCT when ready. She will have a follow up appointment with her PCP, as recommended. CM will continue to follow.
[2022-06-02] MEDS: Ondansetron 4 MG/2 ML VIAL IVP (14:15)
[2022-06-02] MEDS: Normal Saline Flush 10 ML SYR IVP ×2 (14:15→15:56)
--- NOTE | 2022-06-02 18:02 | W.PM.PROGNOT ---
Date of Service Date of service: 06/02/22 Time of Service: 18:02 Assessment and Plan Assessment and plan (1) Atrial fibrillation: Status: Chronic Assessment and plan: dc amiodarone, convert lopressor to Toprol XL. I have increased her to Toprol XL 100 MG bid (from lopressor 50 mg qid). Get outpatient follow up holter to assess stability and have her follow up w/ Dr. Rajan in cardiology clinic. Continue warfarin as patient has had steady INR readings. No changes made in her dose. INR today is 2.3. Professional time spent interviewing and examining patient, discussion of goals of care with hospital team (care management, nursing and consulting professionals) was 20 minutes. (2) CHF (congestive heart failure): Status: Chronic Assessment and plan: HFmEF w/ LVEF 45 to 50% and akinetic septum, mild to mod. MAC w/ mild to mod. MR, mildly dilated RV w/ mod. TR but RVSP of 36 mm. Continue losartan 50 mg bid, spironolactone 25 mg daily, convert her lasix to torsemide (she did not like the fact that I told her she would be taking her lasix twice a day now; she says that she will be up peeing all night). I switched her lasix to equivalent dose of torsemide once a day. I also added chlorthalidone to help w/ her BP as she is already maxed out on her losartan and she is nearing maximal BB dosing. She seems quite concerned about her BP's. Per Dr. Rajan, she feels that she would not be able to afford the Entresto. She should have an PSG sleep study given her afib and CHF. (3) Chronic obstructive lung disease: Assessment and plan: cont. her home inhalers. She is now on her baseline home oxygen use of 3 LPM Qualifiers: COPD type: unspecified COPD Qualified Code(s): J44.9 - Chronic obstructive pulmonary disease, unspecified (4) Falls frequently: Status: Acute Assessment and plan: will get P.T. consult to evaluate her fall safety risk Subjective Subjective Interval history since last seen: Patient is feeling better, she is not dyspneic. No CP. I am not sure that her admission weight was accurate but she allegedly has lost 15 kg (123 down to 108). She was net negative 4100 mL yesterday. her afib rate is improving but still variable control. Per ICU nurses telemetry runs from high 70's to low 100's but overall this is much improved. Dr. Rajan saw the patient today which the patient is very happy to hear that she can come off her amiodarone. I did not think that it was doing anything for her in terms of keeping her in sinus rhythm. Celeste has had DCC in the past and is not interested in going through this again. I think rate conrol is more important and apparently Dr. Rajan agrees. Exam Narrative Exam Narrative: Celeste is sitting up in bed, alert and oriented Lungs: some faint bibasilar rales but overall much clearer Heart: irregular irregular but at controlled rate Abdomen: benign Legs: edema has gone down remarkably, skin has granular/pebbly feel with some rubor but the edema has improved. Objective Last Vital Signs Temp 36.6 C 06/02/22 15:58 Pulse 100 H 06/02/22 15:58 Resp 18 06/02/22 15:58 BP 142/90 H 06/02/22 15:58 Pulse Ox 96 06/02/22 15:58 Laboratory Results - last 24 hr 06/02/22 06/02/22 06/02/22 06:20 06:20 06:20 PT 21.6 H INR 2.3 H Sodium 137 Potassium 3.5 Chloride 96 L Carbon Dioxide 38.0 H Anion Gap 3.0 BUN 16 Creatinine 1.0 Est GFR (CKD-EPI 2020) 56.60 Glucose 106 Calcium 8.9 Magnesium Total Bilirubin 1.1 H Conjugated Bilirubin 0.2 AST 20 ALT 21 Alkaline Phosphatase 118 H Total Protein 7.9 Albumin 2.5 L Add-On Test Request 06/02/22 06/02/22 06:20 06:20 PT INR Sodium Potassium Chloride Carbon Dioxide Anion Gap BUN Creatinine Est GFR (CKD-EPI 2020) Glucose Calcium Magnesium 2.0 Total Bilirubin Conjugated Bilirubin AST ALT Alkaline Phosphatase Total Protein Albumin Add-On Test Request DONE
[2022-06-02] MEDS: Docusate Sodium 100 MG CAP PO (19:35)
[2022-06-02] MEDS: Chlorthalidone 25 MG TAB PO (19:35)
[2022-06-02] MEDS: Latanoprost 0.005% 2.5 ML BTL OU (21:33)
[2022-06-02] MEDS: Metoprolol CR 100 MG TABCR PO (21:33)
[2022-06-03 00:09] VITALS: PULSE 89
[2022-06-03 03:33] VITALS: BP 147/94; PULSE 80; RESP 18; TEMP 36.7; O2SAT 96
[2022-06-03] MEDS: Levothyroxine 100 MCG TAB PO (05:41)
[2022-06-03 07:25] LABS: INR 2.1 (0.9-1.1); Prothrombin Time 20.6 sec (9.3-11.0)
[2022-06-03 07:39] LABS: Anion Gap 4.3 mmol/L (3-11); BUN 19 mg/dL (7-18); CO2 36.7 mmol/L (21.0-32.0); CREATININE 1.2 mg/dL (0.55-1.02); Calcium 9.4 mg/dL (8.5-10.1); Chloride 95 mmol/L (98-107); Estimated GFR 45.48 (mL/min/1.73m2); Glucose 116 mg/dL (74-106); NT-proBNP 2754 pg/mL (<300); Potassium 3.4 mmol/L (3.5-5.1); Sodium 136 mmol/L (136-145)
--- NOTE | 2022-06-03 08:00 | DI.US_ITS ---
APPROVED REPORT EXAM: Comprehensive 2D, Doppler, and color-flow Echocardiogram Patient Location: In-Patient Room/Bed: [address] Flow Associate: Juana Franks RDCS (AE) Indications: CHF,Evaluate LV and RV Other Information Study Quality: Fair. Technically limited study due to body habitus, inability to position patient exa m done supine. Conclusion Mild concentric left ventricular hypertrophy. Estimated ejection fraction is 40 to 45%. There is mi ld global hypokinesis. The patient is in atrial fibrillation with [id number] variation, fair heart rate control throughout the study Right ventricle was not well visualized Left atrium is mildly dilated. The right atrium is moderately dilated Trileaflet aortic valve without stenosis or regurgitation Mild mitral regurgitation Mild tricuspid regurgitation. Estimated right ventricular systolic pressure is 29 mmHg Wall motion Left Ventricle The left ventricle is normal size. Left ventricular systolic function is mildly decreased. Mild mel ntric left ventricular hypertrophy. There is mild global hypokinesis of the left ventricle. There is no ventricular septal defect visualized. LVEF is 40-45%. Right Ventricle Right ventricle is not well visualized. Right ventricular systolic function could not be assessed. Th e RVSP is 28.7mmHg. Atria Left atrium is mildly dilated. Right atrium is moderately dilated. The interatrial septum is intact w ith no evidence for an atrial septal defect. Aortic Valve The aortic valve is normal in structure. Aortic valve is trileaflet. There is no aortic valvular sten osis. No aortic regurgitation is present. Mitral Valve The mitral valve is normal in structure. No evidence of mitral valve stenosis. Mild mitral regurgitat ion. Tricuspid Valve The tricuspid valve is normal in structure. There is no tricuspid valve stenosis. Mild tricuspid regu rgitation. Pulmonic Valve The pulmonary valve is normal in structure. There is no pulmonic valvular stenosis. Trace pulmonic re gurgitation. Great Vessels The aortic root is normal in size. Ascending aorta is not well visualized. IVC is normal in size and collapses >50% with inspiration. Pericardium There is no pericardial effusion. 2D Dimensions IVSD d PLAX 1.25 cm F: 0.6-1.0 LV Vol A2C d MOD 102.7 mL LVPW d PLAX 1.22 cm F: 0.6 - 1.0 LV Vol A4C d MOD 125.9 mL LVID d PLAX 4.97 cm F: 3.8 - 5.2 LA vol/ BSA A2C s A-L 31.5 mL/m2 LVDs 4.10 cm F: 2.2 - 3.5 LA vol/ BSA A4C s A-L 45.9 mL/m2 Ao Root d 2.74 cm F: 2.7 - 3.3 LA Vol/ BSA Biplane s A-L 39.8 mL/m2 LV EF Teichholz 35.6 % LA Area A4C s MOD 26.74 cm2 LVEF (Camargo's) 33.52 % F: 54 - 74 LA Area A2C s MOD 21.13 cm2 LV Volume 86.64 mL F: 46 - 106 LV EF A4C MOD 35.1 % LV Volume Index 41.25 mL/m2 F: 29 - 61 LV EF A2C MOD 35.8 % LV Vol Biplane MOD 117.5 mL LV EF Biplane MOD 33.5 % FS 17.05 % SV 39.39 mL SV Index 18.70 mL/m2 M-Mode TAPSE 1.76 cm (M/F) >1.7 LV Diastology MV E Vmax 0.94 (0.4-1.3 m/s) Aortic Valve LVOT Area 2.91 cm2 AoV Area Vmax 2.05 cm2 LVOT Vmax 0.78 m/s AoV Area/ BSA (Vmax) 0.97 cm2/m2 LVOT Mean Jose. 0.48 m/s KYLIE Mean Jose. 1.80 cm2 LVOT Peak Grad 2.5 mmHg KYLIE Mean Jose. Index 0.86 cm2/m2 LVOT Mean Grad 1.1 mmHg LVOT VTI 0.111 m LVOT Diam s 1.90 cm AoV Vmax 1.12 m/s Velocity Ratio 0.69 AoV Mean Jose. 0.78 m/s AoV Peak Grad 5.0 mmHg LVOT SV 32.31 mL AoV Mean Grad 2.7 mmHg AoV VTI 0.197 m AoV Area VTI 1.64 cm2 AoV Area/ BSA (VTI) 0.78 cm/m2 Mitral Valve MV DT 242 (160-240 msec) MV PHT 70 msec MV Area PHT 3.14 cm2 MV VTI 0.200 m MV Area VTI 1.62 (4.0-6.0 cm2) Pulmonary Valve PV Vmax 0.80 (0.5-1.5 m/s) RVOT Peak Gr. 1.33 mmHg PV Peak Grad 2.6 mmHg RVOT Mean Gr. 0.50 mmHg PV Mean Grad 1.2 mmHg RVOT VTI 0.097 m PV VTI 0.153 m RVOT Vmax 0.58 m/s Tricuspid Valve TR Peak Grad 25.6 mmHg TR Vmax 2.53 m/s RA Pressure 3.00 mmHg RVSP (TR) 28.7 mmHg
[2022-06-03] MEDS: Spironolactone 25 MG TAB PO (08:08)
[2022-06-03] MEDS: Famotidine 20 MG TAB 40 MG PO (08:08)
[2022-06-03] MEDS: buPROPion-CR 100 MG TABCR PO (08:08)
[2022-06-03] MEDS: Docusate Sodium 100 MG CAP PO (08:08)
[2022-06-03] MEDS: Magnesium Oxide 400 MG TAB PO (08:08)
[2022-06-03] MEDS: Losartan 50 MG TAB PO (08:08)
[2022-06-03] MEDS: Cyanocobalamin 500 MCG TAB 1000 MCG PO (08:08)
[2022-06-03] MEDS: Chlorthalidone 25 MG TAB PO (08:08)
[2022-06-03] MEDS: Potassium Chloride 20 MEQ TABCR 40 MEQ PO (08:09)
[2022-06-03] MEDS: Torsemide 20 MG TAB PO (08:09)
[2022-06-03 08:10] VITALS: BP 135/78; PULSE 56; RESP 18; TEMP 35.9; O2SAT 91; O2SAT 93
[2022-06-03] MEDS: Budesonide/Formoterol 80/4.5 6.9 GM 60 PUFF INH IH (08:10)
[2022-06-03] MEDS: Tiotropium Bromide-Respimat 10 PUFF INH 2 PUFF IH (08:10)
[2022-06-03] MEDS: Nystatin POWDER 60 GM JAR TP (08:11)
[2022-06-03 08:26] LABS: Lab Add On Test DONE
[2022-06-03 08:42] LABS: Magnesium 2.2 mg/dL (1.8-2.4)
--- NOTE | 2022-06-03 09:39 | PDOC.CMPRO ---
- If Service Date Differs Date of service: 06/03/22 Time of Service: 09:39 Care Management Progress Note S/O: Celeste is making medical gains, per MD; she is diuresing well. PT consult is requested and ordered prior to discharge due to recent hx of falls. CM continues to follow. A: 81 year old female admitted to [facility] 05/31/22 for CHF exacerbation P: Celeste will return home when medically cleared, with possible increased supports. Her , Valentin will drive her home via private vehicle vs RCT when ready. She will have a follow up appointment with her PCP, as recommended. CM will continue to follow.
[2022-06-03] MEDS: Normal Saline Flush 10 ML SYR IVP (09:50)
[2022-06-03] MEDS: Metoprolol CR 100 MG TABCR PO (09:50)
--- NOTE | 2022-06-03 09:56 | IN_ITS ---
Date of service: 06/03/22 Time of Service: 09:56 PT Notes Visit Reasons: CHF Exacerbation Physical Therapy Inpatient Initial Evaluation Date: 06/03/2022 Referring Doctor: Michael Luo MD PT Orders: PT CONSULT: Fall safety assessment Precautions: Fall. Standard. Activity as tolerated. Patient Profile/Admitting Diagnosis: Celeste is an 81-year-old female who presented to the ED on 05/31/2022 due to shortness of breath and increased chest pressure. Patient is diagnosed with CHF, AF, hypothyroidism, COPD, hypomagnesemia, elevated liver transaminase level, and renal insufficiency. PMHX: All Active Problems? Renal insufficiency, mild (Acute) Elevated liver transaminase level (Acute) Hypomagnesemia (Acute) Discharge planning issues (Acute) CHF (congestive heart failure) (Chronic) Status post total right knee replacement (Acute 05/30/20) Abnormal breast finding (Acute 01/19/18) Adenoma of colon (Acute 01/19/18) Bruising (Acute 01/19/18) Chronic depression (Acute 01/19/18) Degenerative arthritis of right knee (Chronic 04/23/15) Disorder of vulva (Acute 01/19/18) Edema leg (Acute 01/19/18) Obesity (Acute 07/11/13) Osteoarthritis (Acute 07/11/13) Other forms of dyspnea (Acute 01/19/18) Overactive bladder (Acute 01/19/18) Primary osteoarthritis of both knees (Chronic 10/29/15) Synvisc injection: 11/04/2019; 05/03/2019 Shortness of breath (Acute 01/19/18) Tendinitis of left shoulder (Acute 01/07/16) Rectal hemorrhage (Acute) Acute on chronic diastolic heart failure (Acute) Chest pain (Acute) Atrial fibrillation (Chronic) SOB (shortness of breath) (Acute) CHF (congestive heart failure) (Chronic) Cough (Acute) Right rotator cuff tendonitis (Acute) Medical History? Acute exacerbation of CHF (congestive heart failure) AF (paroxysmal atrial fibrillation) (01/19/18) Cataracts, bilateral Chronic obstructive lung disease (07/11/13) Depression Essential hypertension (07/11/13) H/O adenomatous polyp of colon History of cardioversion Hypertension Hypothyroidism (07/11/13) Morbid obesity Noncompliance with medication regimen Osteoarthritis Tendonitis surgery r arm Surgical History? Abdominal hysterectomy H/O colonoscopy x2 H/O: hysterectomy History of carpal tunnel release r wrist Social History/Home Situation: Lives with hubby in a private home with a ramp to enter. Independent with FWW for indoor ambulation. Equipment Owned/DME: FWW Subjective: Agreeable to PT consult. Perlita chest pain nor pressure. Did not report undue shortness of breath during short distance walk. Objective: General Observation: Seated on chair. Mental Status: Alert and oriented as to person, place, time, and purpose. Able to pay attention, focus, and respond appropriately. Pain: Denies Vital Signs: Saturation lowest at 88% with short walk on 3 L/minute via NC. ROM: Right Upper Extremity: Shoulder Flexion lacks the last 25 % of AROM. Shoulder abduction lacks the last 25 % of AROM. Elbow flexion WFL. Wrist flexion WFL. Functional opening and closing of hand WFL. Left Upper Extremity: Shoulder Flexion lacks the last 25 % of AROM. Shoulder abduction lacks the last 25 % of AROM. Elbow flexion WFL. Wrist flexion WFL. Functional opening and closing of hand WFL. Right Lower Extremity: Hip flexion lacks the last 50% of AROM. Hip abduction WFL. Knee flexion WFL. Ankle dorsiflexion WFL. Ankle plantarflexion WFL. Left Lower Extremity: Hip flexion lacks the last 50% of AROM. Hip abduction WFL. Knee flexion WFL. Ankle dorsiflexion WFL. Ankle plantarflexion WFL. Strength: Right Upper Extremity: Shoulder flexors 3-/5. Shoulder abductors 3-/5. Elbow flexors 4-/5. Elbow extensors 4-/5. Church History Teacher strong. Left Upper Extremity: Shoulder flexors 3-/5. Shoulder abductors 3-/5. Elbow flexors 4-/5. Elbow extensors 4-/5. Church History Teacher strong. Right Lower Extremity: Hip flexors 3-/5. Hip abductors 4/5. Knee flexors 4/5. Knee extensors 4/5. Ankle dorsiflexors 4/5. Ankle plantarflexors 4/5. Left Lower Extremity: Hip flexors 3-/5. Hip abductors 4-/5. Knee flexors 4-/5. Knee extensors 4-/5. Ankle dorsiflexors 4-/5. Ankle plantarflexors 4-/5. Bed Mobility/Transfers: Sit to stand stand by assist Stand to sit stand by assist Bed to bedside commode stand by assist Bedside commode to bed stand by assist Bed to reclining chair stand by assist Reclining chair to bed stand by assist Gait: Instructed patient with level surface ambulation of 10 feet x 2 requiring stand by assist. Elzbieta decreased. Step height decreased. Step length decreased. Balance: Static Sitting: Normal Dynamic Sitting: Good Static Standing: Fair Dynamic Standing: Fair Special Tests: Mobility Limitations Standardized Measure [facility] AM-PAC 6 clicks Basic Mobility Inpatient Short Form: Raw Score: 21 CMS Score: 29% deficit Informed Consent/Education: Patient was instructed in purpose of PT consult and plan of care. Agreeable to proceed with established PT POC to achieve personal goals. Assessment: Patient requires the use of a front wheeled walker for all short distance ambulation in order to maximize independence and reduce fall risk at home. Patient presents with clinical signs and symptoms consistent with current/admitting diagnoses that have resulted to mobility limitations, gait instability, generalized weakness, and overall ADL decline as demonstrated by the following impairment level findings: 1. Decreased strength to B hip, R LE and B shoulder major muscle groups 2. Impaired sitting/standing balance 3. Impaired activity tolerance 4. Limitation of joint range of motion in B hips/B shoulders 5. Shortness of breath Impairments are contributing to the following functional limitations: 1. Difficulty with ambulation without assistive device 2. Increased completion time for mobility ADL performance 3. Increased risk for falls 4. Difficulty with managing steps alone safely Patient is assessed as a 40881 moderate complexity based on the following: History: 81-year-old female with past medical history as indicated above Examination: Demonstrable impairment in strength, balance, and mobility level with underlying impairments and functional limitations as exhibited above as well as deficit score of 29% utilizing the [facility] Mobility Inpatient Short Form Presentation: Evolving Decision Makin moderate complexity Goals: Goals X1 week 1. Supine-Sit independent 2. Sit-Supine independent 3. Sit-Stand independent 4. Stand-Sit independent with FWW 5. Bed-Chair independent with FWW 6. Chair-Bed independent with FWW 7. Independent gait on level surface with use of FWW for at least 50 feet without report of pain nor dyspnea 8. Good static and dynamic standing balance/tolerance Plan of Care/Treatment Plan: 1-2x/day, 7 days/week x 1 week. Plan of care has been reviewed with the WELLNESS PROGRAM COORDINATOR providing the service under Physical Therapy direction. Initiate Physical Therapy intervention for pain management as needed, strengthening, bed mobility, transfers, gait, stairs, balance training, and use of assistive device. DISCHARGE RECOMMENDATIONS: [] Home with no services [] [X] Home with services. Home when medically cleared by hospitalist. Patient will benefit from home health PT services in order to progress mobility level u sing least restrictive assistive ambulatory device, assess home safety, identify additional equipment needs, and establish a functional maintenance program that will increase ability of patient to remain at home. [] Home with outpatient PT [] [] SNF for continued rehabilitation [] [] Trouble Shooting Mechanic Care [] [] SNF versus LTC based on ability to participate and progress [] TREATMENT CODE/TIME: 9716 2 x 20 minutes, 9753 0 x 12 minutes beginning at 9:56 AM. Thank you for the opportunity to participate in the care of this patient. Matilda Elder PT, DPT, CLT [facility] [place], [place]
[2022-06-03 10:11] VITALS: PULSE 77
--- NOTE | 2022-06-03 10:20 | DSE_ITS ---
Date of service: 06/03/22 Time of Service: 10:20 DS: Diagnosis Discharge Diagnosis (1) Atrial fibrillation: Status: Chronic (2) CHF (congestive heart failure): Status: Chronic (3) Falls frequently: Status: Acute Discharge Plan Disposition Patient Disposition: HOME W/HOME HEALTH SERVICE Condition: Improving Discharge Details Reason For Visit: CHF Exacerbation Admit Date/Time: 05/31/22 05:57 Admit Provider: Cristian Huertas Attending Provider: Cristian Huertas Primary Care Provider: Ginny Scherer V Hospital Course Hospital Course: This 81 yo female patient with history of CHF with borderline LVEF of 45-50% on October 2021 echocardiogram, atrial fibrillation on warfarin, COPD who presented to the [facility] ED after waking up from sleep at about 3:30am with shortness of breath and some pressure in her chest.? She had felt this way on a prior admission to the hospital. No recent changes in medication or diet.? She stated she was taking her furosemide and it makes her urinate a lot.? She has noted increased LE edema over the past several days.? She reported chest heaviness, she stated was not pain, and stayed in her mid chest, she denied radiation.?She monitors warfarin with home INR, which is stable.? No recent bleeding. ? She was here with similar presentation this past October. She reports having fallen 5 times in the last 2 weeks.? She has difficulty walking.? This particularly involves her left leg.? She has been told that she would be at prohibitive risk for knee replacement.? She has home physical therapy.? EKG on presentation showed atrial fibrillation with an uncontrolled rate.? She was seen by Dr Rajan and recommended discontinue amiodarone and pursue rate control. Amiodarone was discontinued and Toprol XL started. She improved and was discharged to home, on oxygen (chronic) with home health alf, PT and OT services. Discussed with Dr Ingram Home Meds and New Rx's Prescriptions: New metoprolol succinate 100 mg Tablet Extended Release 24 Hr 100 mg PO Q12H Qty: 30 0RF chlorthalidone 25 mg Tablet 25 mg PO DAILY Qty: 30 0RF spironolactone 25 mg Tablet 25 mg PO DAILY Qty: 30 0RF magnesium oxide 400 mg (241.3 mg magnesium) Tablet 400 mg PO BID Qty: 60 0RF budesonide-formoterol [Symbicort] 80-4.5 mcg/actuation Hfa Aerosol Inhaler 2 puff inhalation BID Qty: 10.2 0RF Spiriva Respimat 2.5 mcg/actuation Mist 2 puff inhalation DAILY Qty: 4 0RF torsemide 20 mg Tablet 20 mg PO DAILY Qty: 30 0RF Continued tramadol 50 mg tablet 50 mg PO Q4H PRN (Reason: pain) Qty: 28 0RF levothyroxine [Levoxyl] 100 MCG tablet 100 mcg PO DAILY latanoprost 2.5 ML drops 1 drp Ophthalmic HS warfarin 2.5 MG tablet 2.5 mg PO DAILY Rx Instructions: 2.5 MG Thursday thru Thursday 1.5mg on Thursday nystatin (bulk) 1 EACH powder 1 ea Miscellaneous DAILY 30 Days Qty: 1 1RF tizanidine 2 mg tablet See Rx Instructions .ROUTE .COMPLEX Qty: 16 0RF Dose Instruction: TAKE 1 TABLET BY MOUTH AT BEDTIME NEEDED FOR MUSCLE SPASTICITY Rx Instructions: TAKE 1 TABLET BY MOUTH AT BEDTIME NEEDED FOR MUSCLE SPASTICITY Trelegy Ellipta 100-62.5-25 mcg Blister With Device 1 inh INHALATION DAILY famotidine 20 mg Tablet 20 - 40 mg PO DAILY docusate sodium [Colace] 100 mg capsule 100 mg PO BID Qty: 30 0RF naproxen 375 mg tablet 375 mg PO BID PRNQty: 60 2RF pramipexole 0.125 mg tablet 0.125 - 0.25 mg PO HS PRN (Reason: Restless Leg(S)) Label Comments: TAKE 1 TO 2 TABLETS BY MOUTH AT BEDTIME IF NEEDED FOR RESTLESS LEGS cyanocobalamin (vitamin B-12) [Vitamin B-12] 1,000 mcg tablet 1,000 mcg PO DAILY Label Comments: TAKE 1 TABLET BY MOUTH ONCE DAILY losartan 100 mg tablet 50 mg PO BID Label Comments: TAKE 1 TABLET BY MOUTH ONCE DAILY methocarbamol 500 mg tablet 500 mg PO Q6H PRN (Reason: muscle spasm) Qty: 14 0RF bupropion HCl 100 mg tablet sustained-release 12 hr 100 mg PO BID Label Comments: TAKE 1 TABLET BY MOUTH TWICE DAILY Discontinued acetaminophen 500 mg tablet 500 mg PO Q6H PRN (Reason: pain) Qty: 60 2RF metoprolol succinate 50 mg tablet extended release 24 hr 50 mg PO DAILY Label Comments: TAKE 1 TABLET BY MOUTH TWICE DAILY amiodarone 200 mg tablet 200 mg PO BID Label Comments: TAKE 1 TABLET BY MOUTH ONCE DAILY AFTER FIRST WEEK FOR MAINTENANCE No Action furosemide [Lasix] 20 mg tablet 20 mg PO BID Label Comments: 06/04/22 PCP note states 1-2 tabs daily RH amiodarone 200 mg tablet 200 mg PO DAILY cholecalciferol (vitamin D3) 25 mcg (1,000 unit) capsule 25 mcg PO DAILY Discharge Instructions Instructions: Metoprolol (By mouth), Spironolactone (By mouth), Chlorthalidone (By mouth), Torsemide (By mouth), Magnesium Oxide (By mouth), Heart Failure (DC), Heart Failure (GEN), A-fib (Atrial Fibrillation) (DC) Additional Instructions: Home Health will call you to make arrangements to visit your home to admit you to their services. Stand Alone Forms: Nursing Discharge Form Referrals: Ginny Scherer MD [Primary Care Provider] - 06/13/22 9:30 am (Follow up within 1-2 weeks Recommend 14d cardiac event monitor ) Neisha Rajan MD [ [facility] STAFF PHYSICIAN] - 06/05/22 9:00 am (Follow up from consult 06/02/2022, possibly after 14d cardiac event monitor. ) Activity:: Activity as Tolerated Equipment/Supplies:: Walker Diet:: Low Sodium Discharge Orders Discharge Orders: Discharge Order (Routine); Ordered 06/03/22 Ordered By: Elinor Bernal Discharge Data Discharge Date/Time-TO BE ENTERED AT DEPARTURE: 06/03/22 12:24 DS: Summary Time Spent with Patient providing and/or coordinating discharge services: Greater than 30 minutes Status at Discharge Functional status at discharge: uses cane/walker Overall status at discharge: patient is progressing back to baseline Mental Status: mental status grossly normal Speech and Movement: speech and movement normal Mood: congruent mood Affect: normal affect Exam Psych Mental Status: mental status grossly normal Speech and Movement: speech and movement normal Mood: congruent mood Affect: normal affect DS: Data Vitals/I&O Vitals and I&O: Vital Signs Temperature 35.9 C L 06/03/22 08:10 Temperature Source Tympanic 06/03/22 08:10 Pulse 77 06/03/22 10:11 Pulse Rhythm Irregular 06/03/22 03:38 Pulse 96 H 05/31/22 06:40 Respiratory Rate 18 06/03/22 08:10 Respiratory Effort 06/03/22 03:38 Respiratory Depth Normal 06/03/22 03:38 Respiratory Pattern Normal 06/03/22 03:38 Blood Pressure 135/78 06/03/22 08:10 Blood Pressure Mean 126 05/31/22 06:31 Blood Pressure Position Sitting 05/31/22 04:33 Pulse Oximetry 91 L 06/03/22 08:10 Oxygen Delivery Method Nasal Cannula 06/03/22 08:10 Oxygen Flow Rate 3 06/03/22 08:10 Pain Level 0 06/03/22 08:10 Comment RN in room when vitals were taking. 06/02/22 08:13 Intake & Output 06/02/22 06/02/22 06/03/22 11:59 23:59 11:59 Intake Total 360 / 560 200 / 560 Output Total 650 / 1200 550 / 1200 100 / 100 Balance -290 / -640 -350 / -640 -100 / -100 Weight 108.1 kg 109.5 kg Intake: Oral 360 / 560 200 / 560 Output: Urine 650 / 1200 550 / 1200 100 / 100 Other: Urine Color Yellow Straw Carney Urine Appearance Clear Cloudy Clear Hematuria Comment Bloody mucus threads, strong order. Stool Size Moderate Stool Characteristics Hard Data Completed and Pending Labs on day of discharge: Labs from last 24 hours 06/03/22 06/03/22 06/03/22 Unknown 06:16 06:16 PT INR Sodium 136 Potassium 3.4 L Chloride 95 L Carbon Dioxide 36.7 H Anion Gap 4.3 BUN 19 H Creatinine 1.2 H Est GFR (CKD-EPI 2020) 45.48 Glucose 116 H Calcium 9.4 Magnesium 2.2 NT-Pro-B Natriuret Pep 2754 H Add-On Test Request DONE 06/03/22 06:16 PT 20.6 H INR 2.1 H Sodium Potassium Chloride Carbon Dioxide Anion Gap BUN Creatinine Est GFR (CKD-EPI 2020) Glucose Calcium Magnesium NT-Pro-B Natriuret Pep Add-On Test Request PFSH All Active Problems (Updated 06/04/22 @ 16:04 by Priscila Bautista RN) Pulmonary arterial hypertension (Acute) Falls frequently (Acute) Hypomagnesemia (Acute) CHF (congestive heart failure) (Chronic) Status post total right knee replacement (Acute 05/30/20) Abnormal breast finding (Acute 01/19/18) Adenoma of colon (Acute 01/19/18) Bruising (Acute 01/19/18) Chronic depression (Acute 01/19/18) Degenerative arthritis of right knee (Chronic 04/23/15) Disorder of vulva (Acute 01/19/18) Edema leg (Acute 01/19/18) Obesity (Acute 07/11/13) Osteoarthritis (Acute 07/11/13) Other forms of dyspnea (Acute 01/19/18) Overactive bladder (Acute 01/19/18) Primary osteoarthritis of both knees (Chronic 10/29/15) Synvisc injection: 11/04/2019; 05/03/2019 Shortness of breath (Acute 01/19/18) Tendinitis of left shoulder (Acute 01/07/16) Rectal hemorrhage (Acute) Acute on chronic diastolic heart failure (Acute) Chest pain (Acute) Atrial fibrillation (Chronic) SOB (shortness of breath) (Acute) CHF (congestive heart failure) (Chronic) Cough (Acute) Right rotator cuff tendonitis (Acute) Medical History Acute exacerbation of CHF (congestive heart failure) AF (paroxysmal atrial fibrillation) (01/19/18) Cataracts, bilateral Chronic obstructive lung disease (07/11/13) Depression Essential hypertension (07/11/13) H/O adenomatous polyp of colon History of cardioversion Hypertension Hypothyroidism (07/11/13) Morbid obesity Noncompliance with medication regimen Osteoarthritis Tendonitis surgery r arm Surgical History Abdominal hysterectomy H/O colonoscopy x2 H/O: hysterectomy History of carpal tunnel release r wrist Family History Other Heart disease Social History (Updated 05/31/22 @ 06:43 by Cristian Huertas) Smoking/Tobacco Use Status: Former Tobacco Use Smoking risk assessment performed?: Yes Alcohol Intake: former Drug use: Never Substance use type: does not use Current gender identity: female Do you feel safe at home: Yes Do you feel safe in your relationship?: Yes Additional Social history: Lives in [place] with Ed who is starting to have cognitive problems. They have financial issues
--- NOTE | 2022-06-03 10:53 | PDOC.HHF2F ---
Home Health Certification Home Health Certification: 1. Encounter Date and Reason I certify that Celeste Carpenter was seen by Elinor Bernal NP on 06/03/22 and that I had a [id number] encounter with this patient that meets the physician face to face encounter requirements. 2. Clinical Findings Supporting Skilled Need and Homebound Status I certify that home health services are medically necessary, include either intermittent nursing home and/or physical/speech therapy, and that this patient is homebound in that absences from the home require considerable and taxing effort and are infrequent or of short duration, or are attributable to the need to receive medical care. [X] (a) Attached documentation from encounter provides clinical findings supporting skilled need and homebound status (including what assistance patient requires to leave the home). The encounter with the patient was in whole, or in part, for the following medical condition, which is the primary reason for home health care: CHF Exacerbation Fpc:??Skilled observation, assessment and intervention of the patient?s condition including symptom control, vital signs, diet, disease process; education regarding medication, disease process and nutrition (to the patient and any care givers), to avoid further complications of her chronic condition.? Many new medications that should be explained with detailed teaching. Labs - 06/09/2022 - CMP; I50.2; POC INR - I48.2 Physical Therapy:?Assess and plan an exercise program to regain movement and strength, teach safety, energy conservation, and any assistive device evaluation and education. AND DRYING SUPERVISOR COOKING CASING:?Assessment of social and emotional factors related to chronic disease, appropriate action to obtain available financial and community resources.? Homebound:?Patient is unable to safely ambulate without the use of a walker or at least one person to assist her and she requires oxygen 06/04.. 3. Certification and Authentication I certify that I composed the above information based on my clinical judgment relating to this patient's medical condition and, if applicable, clinical findings communicated to me by the NPP or inpatient physician who performed the Home Health Referral. All further orders will be obtained through Dr Scherer
[2022-06-03 11:04] VITALS: BP 138/102; PULSE 68; RESP 19; TEMP 36.1; O2SAT 94
[2022-06-03 12:15] VITALS: PULSE 90
--- NOTE | 2022-06-03 13:42 | CMDISCH_ITS ---
- If Service Date Differs Date of service: 06/03/22 Time of Service: 13:42 LACE Index Scoring Tool - Questions: Length of Stay (in days): 2 Acuity (Admit via E.D.?): Yes Comorbidities: Congestive Heart Failure, Chronic Pulmonary Disease E.D. Visits: 2 - Answers: Total Score: 12 Risk of Readmission: High Risk Care Management Discharge Reason for Hospitalization: CHF Exacerbation Discharge Plan: Celeste is discharged home via private vehicle with family. Celeste will follow up with community providers and discharge plan of care as prescribed. New RX's are transmitted to [facility]. New [facility] RN/PT/OT/SINGER AND UNLOADER services are ordered. Recommend 14 day cardiac event recorder, order placed. Follow up with Dr. Rajan (Cardiology) on 06/05/22 and PCP on 06/13/22, as scheduled. Patient/Family Education Needs: Review discharge instructions, limitations, medications and plan to follow up with community providers. Discuss ask me three. Services Needed at Discharge: Home Health Care Services ([facility] RN,PT,OT,SINGER AND UNLOADER. Face to Face complete, CM notified)
== END 2022-06-03 12:24 | disposition home health service (06) | DRG 291 ==
LOC: ER 06:09 → MS 07:51
PROVIDERS: Internal Medicine; Admitting Provider Family Medicine; Emergency Provider Emergency Medicine; PCP Family Medicine; Visit Provider Family Medicine
DX: I11.0 Hypertensive heart disease with heart failure (principal); I50.33 Acute on chronic diastolic (congestive) heart failure; I48.21 Permanent atrial fibrillation; R74.01 Elevation of levels of liver transaminase levels; E83.42 Hypomagnesemia; Z96.651 Presence of right artificial knee joint; F32.9 Major depressive disorder, single episode, unspecified; N32.81 Overactive bladder; J44.9 Chronic obstructive pulmonary disease, unspecified; E03.9 Hypothyroidism, unspecified; E66.01 Morbid (severe) obesity due to excess calories; Z87.891 Personal history of nicotine dependence; N28.89 Other specified disorders of kidney and ureter; Z79.01 Long term (current) use of anticoagulants; I08.1 Rheumatic disorders of both mitral and tricuspid valves; R29.6 Repeated falls
CPT/HCPCS: 36415; 80048; 80053; 80076; 87637; 93005; 93306; 94640; 96365; 96375; 97162; 97530; 99284; 99285; 71045; 81003; 83735; 83880; 84439; 84443; 84484; 85025; 85610; 93010; 99231; 99232; 99239; J1940; J1941; J2405; J3475

== ENCOUNTER 2022-06-05 08:57 | Outpatient (CLI) | payer MEDICARE, SELFPAY | END 2022-06-05 08:58 | disposition home or self-care (01) | LOC: DI.CARD 08:58 | PROVIDERS: PCP Family Medicine; Visit Provider Internal Medicine Cardiovascular Disease | DX: R69 Illness, unspecified (principal) | CPT/HCPCS: 93010 ==

== ENCOUNTER 2022-06-09 12:01 | Outpatient (REF) | payer MEDICARE, SELFPAY ==
[2022-06-09 15:17] LABS: ALT 23 U/L (14-59); AST 28 U/L (15-37); Alkaline Phosphatase 117 U/L (46-116); Anion Gap 7.6 mmol/L (3-11); BUN 49 mg/dL (7-18); Bilirubin, Total 0.6 mg/dL (0.2-1.0); CO2 31.4 mmol/L (21.0-32.0); CREATININE 2.4 mg/dL (0.55-1.02); Calcium 9.4 mg/dL (8.5-10.1); Chloride 98 mmol/L (98-107); Estimated GFR 19.79 (mL/min/1.73m2); Glucose 156 mg/dL (74-106); Potassium 4.1 mmol/L (3.5-5.1); Sodium 137 mmol/L (136-145); Total Protein 8.2 g/dL (6.4-8.2)
== END 2022-06-09 12:02 | disposition home or self-care (01) ==
LOC: LBN 12:01
PROVIDERS: PCP Family Medicine; Visit Provider Family Medicine
DX: I11.0 Hypertensive heart disease with heart failure (principal)
CPT/HCPCS: 80053

== ENCOUNTER 2022-06-13 18:17 | Outpatient (REF) | payer MEDICARE, SELFPAY ==
[2022-06-13 15:33] LABS: Anion Gap 4.5 mmol/L (3-11); BUN 53 mg/dL (7-18); CO2 35.5 mmol/L (21.0-32.0); CREATININE 2.4 mg/dL (0.55-1.02); Calcium 9.6 mg/dL (8.5-10.1); Chloride 95 mmol/L (98-107); Estimated GFR 19.79 (mL/min/1.73m2); Glucose 112 mg/dL (74-106); Sodium 135 mmol/L (136-145)
== END 2022-06-13 18:18 | disposition home or self-care (01) ==
LOC: NCHCN 18:17
PROVIDERS: PCP Family Medicine; Visit Provider Nurse Practitioner Family
DX: I48.0 Paroxysmal atrial fibrillation (principal)
CPT/HCPCS: 80048

== ENCOUNTER 2022-06-20 16:01 | Inpatient (IN) | payer MEDICARE, SELFPAY ==
--- NOTE | 2022-06-20 15:45 | RT.EKG_ITS ---
APPROVED REPORT Exam: Resting ECG Reason for Exam: dizziness Patient Location: E HR:71 bpm ECG Measurements Heart Rate 71 AXIS ND [id number] P [id number] QRSd 105 QRS 11 QT 426 T 152 QTc 465 Conclusion Atrial fibrillation...? atrial activity Repol abnrm suggests ischemia, anterior leads...ST dep, T neg, V2-V4
[2022-06-20 16:11] VITALS: BP 128/80; PULSE 73; RESP 18; TEMP 36.6; O2SAT 94
--- NOTE | 2022-06-20 16:31 | ED.GENADUL_ITS ---
Discharge Plan Disposition Patient Disposition: STILL A PATIENT Condition: Stable Discharge Details Clinical Impression: Shortness of breath, Fatigue Primary Care Provider: Ginny Scherer V ED Provider: Willem Hawley Home Meds and New Rx's Prescriptions: No Action tramadol 50 mg tablet 50 mg PO Q4H PRN (Reason: pain) Qty: 28 0RF furosemide [Lasix] 20 mg tablet 20 mg PO BID Label Comments: 06/04/22 PCP note states 1-2 tabs daily RH amiodarone 200 mg tablet 200 mg PO DAILY cholecalciferol (vitamin D3) 25 mcg (1,000 unit) capsule 25 mcg PO DAILY levothyroxine [Levoxyl] 100 MCG tablet 100 mcg PO DAILY latanoprost 2.5 ML drops 1 drp Ophthalmic HS warfarin 2.5 MG tablet 2.5 mg PO DAILY Rx Instructions: 2.5 MG Thursday thru Thursday 1.5mg on Thursday nystatin (bulk) 1 EACH powder 1 ea Miscellaneous DAILY 30 Days Qty: 1 1RF tizanidine 2 mg tablet See Rx Instructions .ROUTE .COMPLEX Qty: 16 0RF Dose Instruction: TAKE 1 TABLET BY MOUTH AT BEDTIME NEEDED FOR MUSCLE SPASTICITY Rx Instructions: TAKE 1 TABLET BY MOUTH AT BEDTIME NEEDED FOR MUSCLE SPASTICITY Trelegy Ellipta 100-62.5-25 mcg Blister With Device 1 inh INHALATION DAILY metoprolol succinate 100 mg Tablet Extended Release 24 Hr 100 mg PO Q12H Qty: 30 0RF chlorthalidone 25 mg Tablet 25 mg PO DAILY Qty: 30 0RF spironolactone 25 mg Tablet 25 mg PO DAILY Qty: 30 0RF magnesium oxide 400 mg (241.3 mg magnesium) Tablet 400 mg PO BID Qty: 60 0RF budesonide-formoterol [Symbicort] 80-4.5 mcg/actuation Hfa Aerosol Inhaler 2 puff inhalation BID Qty: 10.2 0RF Spiriva Respimat 2.5 mcg/actuation Mist 2 puff inhalation DAILY Qty: 4 0RF torsemide 20 mg Tablet 20 mg PO DAILY Qty: 30 0RF famotidine 20 mg Tablet 20 - 40 mg PO DAILY docusate sodium [Colace] 100 mg capsule 100 mg PO BID Qty: 30 0RF naproxen 375 mg tablet 375 mg PO BID PRNQty: 60 2RF pramipexole 0.125 mg tablet 0.125 - 0.25 mg PO HS PRN (Reason: Restless Leg(S)) Label Comments: TAKE 1 TO 2 TABLETS BY MOUTH AT BEDTIME IF NEEDED FOR RESTLESS LEGS cyanocobalamin (vitamin B-12) [Vitamin B-12] 1,000 mcg tablet 1,000 mcg PO DAILY Label Comments: TAKE 1 TABLET BY MOUTH ONCE DAILY losartan 100 mg tablet 50 mg PO BID Label Comments: TAKE 1 TABLET BY MOUTH ONCE DAILY methocarbamol 500 mg tablet 500 mg PO Q6H PRN (Reason: muscle spasm) Qty: 14 0RF bupropion HCl 100 mg tablet sustained-release 12 hr 100 mg PO BID Label Comments: TAKE 1 TABLET BY MOUTH TWICE DAILY Medical Decision Making 81 yo female with hx of afib on warfarin, recent admission for chf exacerbation and afib related complaints, copd on home o2, who comes in with ems with complaints of general fatigue for a week. She has home health visiting nursing who met with her today, checked her inr and it was elevated (unsure value they obtained) and given her fatigue ems was called. She denies any chest pain, fevers, chills. She has chronic dyspnea with exertion and a dry cough. She arrives appearing well in no distress. She is on 2: NC and is 94%. She has apical wheezing bilterally and diminished breath sounds at the bases bilaterally. She has no abdomen tenderness, no calf tenderness, has bilateral distal erythema that is not warm and is likely chronic lymphedema, no tenderness. Suspect her symptoms are due to her copd, will treat with neb and solumedrol. Will also obtain covid test, cbc, cmp and though she denies chest pain obtain a troponin. pt signed out to oncoming provider pending labs, xray and reassessment after duoneb. Differential Diagnosis Differential Diagnosis: copd, pneumoni, anemia Medical Records Medical records reviewed: Yes I reviewed the patient's medical records. Lab Data Lab results reviewed: Yes I reviewed the patient's lab results. ECG Data Prior ECG tracings: available for review Interpretation: afib, rate of 71, no stemi HPI General Mode of arrival: EMS . Date/Time Provider Initiated Documentation: 06/20/22 16:17 . Limitations to Documentation: no limitations . Information obtained by: patient . History of Present Illness 81 year old F presents to the emergency department with the chief complaint of fatigue, described as moderate, Patient started experiencing this week(s) (1) and it has been constant. Rest improves symptom(s), Movement worsens symptoms . Patient notes cough. Patient did receive the following treatments prior to arrival, none Related Data Home Medications Medication Instructions Recorded Confirmed Levoxyl 100 mcg tablet 100 mcg PO DAILY 07/11/13 06/20/22 (levothyroxine) latanoprost 0.005 % eye drops 1 drp ophthalmic (eye) HS 01/19/18 06/20/22 warfarin 2.5 mg tablet 2.5 mg PO DAILY 01/19/18 06/20/22 nystatin (bulk) 500 million unit 1 ea miscellaneous DAILY 30 days 02/05/18 06/20/22 powder ##1 fluticasone fur. 100 mcg-umeclid 1 inh inhalation DAILY 03/02/19 06/20/22 62.5 mcg-vilant 25 mcg inhalat.powder (Trelegy Ellipta) famotidine 20 mg tablet 20 - 40 mg PO DAILY 05/28/20 06/20/22 cyanocobalamin (vitamin B-12) 1,000 mcg PO DAILY 05/30/20 06/20/22 1,000 mcg tablet (Vitamin B-12) docusate sodium 100 mg capsule 100 mg PO BID #30 caps 05/30/20 06/20/22 (Colace) losartan 100 mg tablet 50 mg PO BID 05/30/20 06/20/22 naproxen 375 mg tablet 375 mg PO BID PRN #60 tabs 05/30/20 06/20/22 pramipexole 0.125 mg tablet 0.125 - 0.25 mg PO HS PRN Restless 05/30/20 06/20/22 Leg(S) tramadol 50 mg tablet 50 mg PO Q4H PRN pain #28 tabs 06/11/20 06/20/22 methocarbamol 500 mg tablet 500 mg PO Q6H PRN muscle spasm #14 07/12/20 06/20/22 tabs bupropion HCl 100 mg tablet,12 hr 100 mg PO BID 10/24/21 06/20/22 sustained-release tizanidine 2 mg tablet See Rx Instructions .Route 04/15/22 06/20/22 .COMPLEX #16 tabs budesonide-formoterol HFA 80 2 puff inhalation BID #10.2 grams 06/03/22 06/20/22 mcg-4.5 mcg/actuation aerosol inhaler (Symbicort) chlorthalidone 25 mg tablet 25 mg PO DAILY #30 tabs 06/03/22 06/20/22 magnesium oxide 400 mg (241.3 mg 400 mg PO BID #60 tabs 06/03/22 06/20/22 magnesium) tablet metoprolol succinate 100 mg 100 mg PO Q12H #30 tabs 06/03/22 06/20/22 tablet,extended release 24 hr spironolactone 25 mg tablet 25 mg PO DAILY #30 tabs 06/03/22 06/20/22 tiotropium bromide 2.5 2 puff inhalation DAILY #4 grams 06/03/22 06/20/22 mcg/actuation mist for inhalation (Spiriva Respimat) torsemide 20 mg tablet 20 mg PO DAILY #30 tabs 06/03/22 06/20/22 amiodarone 200 mg tablet 200 mg PO DAILY 06/04/22 06/20/22 cholecalciferol (vitamin D3) 25 25 mcg PO DAILY 06/04/22 06/20/22 mcg (1,000 unit) capsule furosemide 20 mg tablet (Lasix) 20 mg PO BID 06/04/22 06/20/22 Previous Rx's Medication Instructions Recorded nystatin (bulk) 500 million unit 1 ea miscellaneous DAILY 30 days 02/05/18 powder ##1 docusate sodium 100 mg capsule 100 mg PO BID #30 caps 05/30/20 (Colace) naproxen 375 mg tablet 375 mg PO BID PRN #60 tabs 05/30/20 tramadol 50 mg tablet 50 mg PO Q4H PRN pain #28 tabs 06/11/20 methocarbamol 500 mg tablet 500 mg PO Q6H PRN muscle spasm #14 07/12/20 tabs tizanidine 2 mg tablet See Rx Instructions .Route 04/15/22 .COMPLEX #16 tabs budesonide-formoterol HFA 80 2 puff inhalation BID #10.2 grams 06/03/22 mcg-4.5 mcg/actuation aerosol inhaler (Symbicort) chlorthalidone 25 mg tablet 25 mg PO DAILY #30 tabs 06/03/22 magnesium oxide 400 mg (241.3 mg 400 mg PO BID #60 tabs 06/03/22 magnesium) tablet metoprolol succinate 100 mg 100 mg PO Q12H #30 tabs 06/03/22 tablet,extended release 24 hr spironolactone 25 mg tablet 25 mg PO DAILY #30 tabs 06/03/22 tiotropium bromide 2.5 2 puff inhalation DAILY #4 grams 06/03/22 mcg/actuation mist for inhalation (Spiriva Respimat) torsemide 20 mg tablet 20 mg PO DAILY #30 tabs 06/03/22 Allergies Allergy/AdvReac Type Severity Reaction Status Date / Time adhesive Allergy Severe skin rash, Verified 06/04/22 16:16 blisters lisinopril Allergy Intermediate Verified 06/04/22 16:16 amoxicillin [Amoxicillin] Allergy Mild TINGLING Verified 06/04/22 16:16 oxybutynin Allergy Unknown PT CAN'T Verified 06/04/22 16:16 REMEMBER General Stated Complaint: GenMedical CECILIA: 3 Review of Systems All systems reviewed & are unremarkable except as noted in HPI and below Constitutional Constitutional: Denies chills, Denies fever(s) and Denies weakness Cardiovascular Cardiovascular: Denies chest pain Gastrointestinal Gastrointestinal: Denies abdominal pain, Denies nausea and Denies vomiting Genitourinary Genitourinary: Denies dysuria Integumentary/Breasts Skin/Breast: Denies rash Neurologic Neurologic: Denies weakness PFSH All Active Problems (Updated 06/20/22 @ 16:55 by Willem Hawley MD) Shortness of breath (Acute) Fatigue (Acute) Pulmonary arterial hypertension (Acute) Falls frequently (Acute) Hypomagnesemia (Acute) CHF (congestive heart failure) (Chronic) Status post total right knee replacement (Acute 05/30/20) Abnormal breast finding (Acute 01/19/18) Adenoma of colon (Acute 01/19/18) Bruising (Acute 01/19/18) Chronic depression (Acute 01/19/18) Degenerative arthritis of right knee (Chronic 04/23/15) Disorder of vulva (Acute 01/19/18) Edema leg (Acute 01/19/18) Obesity (Acute 07/11/13) Osteoarthritis (Acute 07/11/13) Other forms of dyspnea (Acute 01/19/18) Overactive bladder (Acute 01/19/18) Primary osteoarthritis of both knees (Chronic 10/29/15) Synvisc injection: 11/04/2019; 05/03/2019 Shortness of breath (Acute 01/19/18) Tendinitis of left shoulder (Acute 01/07/16) Rectal hemorrhage (Acute) Acute on chronic diastolic heart failure (Acute) Chest pain (Acute) Atrial fibrillation (Chronic) SOB (shortness of breath) (Acute) CHF (congestive heart failure) (Chronic) Cough (Acute) Right rotator cuff tendonitis (Acute) Medical History Acute exacerbation of CHF (congestive heart failure) AF (paroxysmal atrial fibrillation) (01/19/18) Cataracts, bilateral Chronic obstructive lung disease (07/11/13) Depression Essential hypertension (07/11/13) H/O adenomatous polyp of colon History of cardioversion Hypertension Hypothyroidism (07/11/13) Morbid obesity Noncompliance with medication regimen Osteoarthritis Tendonitis surgery r arm Surgical History Abdominal hysterectomy H/O colonoscopy x2 H/O: hysterectomy History of carpal tunnel release r wrist Family History Other Heart disease Social History (Updated 05/31/22 @ 06:43 by Cristian Huertas) Smoking/Tobacco Use Status: Former Tobacco Use Smoking risk assessment performed?: Yes Alcohol Intake: former Drug use: Never Substance use type: does not use Current gender identity: female Do you feel safe at home: Yes Do you feel safe in your relationship?: Yes Additional Social history: Lives in [place] with Ed who is starting to have cognitive problems. They have financial issues Exam Const General: no acute distress Orientation: alert HENWY Head: normal to inspection Ears: external ears normal General nose exam: external nose normal Mouth: moist mucous membranes Eyes General: appearance normal, both eyes and all related structures Neck Neck: normal visual inspection Resp Effort & Inspection: cough Cardio Rate: regular rate Skin General skin exam: no rashes or lesions noted Neuro General: patient alert and patient oriented x3 Extrem General: normal to inspection Psych Mental Status: mental status grossly normal Course Vital Signs Vital signs: Vital Signs Temperature 36.6 C 06/20/22 16:11 Pulse 73 06/20/22 16:11 Respiratory Rate 18 06/20/22 16:11 Blood Pressure 128/80 06/20/22 16:11 Pulse Oximetry 94 06/20/22 16:11 Temperature 36.6 C 06/20/22 16:11 Temperature Source Temporal Artery Scan 06/20/22 16:11 Pulse 73 06/20/22 16:11 Respiratory Rate 18 06/20/22 16:11 Blood Pressure 128/80 06/20/22 16:11 Blood Pressure Position Sitting 06/20/22 16:11 Pulse Oximetry 94 06/20/22 16:11 Oxygen Delivery Method Nasal Cannula 06/20/22 16:11 Oxygen Flow Rate 3 06/20/22 16:11 Pain Level 0 06/20/22 16:11
--- NOTE | 2022-06-20 16:45 | DI.RAD_ITS ---
Exam(s) XR PORTABLE CHEST AP EXAM: XR PORTABLE CHEST AP CLINICAL HISTORY: cough TECHNIQUE: COMPARISON: CR XR CHEST 2V PA LATERAL from 02/05/2022 CR,XR XR PORTABLE CHEST AP from 05/31/2022 FINDINGS: The heart is enlarged. There are mild diffuse pulmonary interstitial opacities, improved from prior examination of May 31. The findings are likely to represent some degree of chronic interstit ial fibrosis with mild superimposed CHF. There may be small bilateral pleural effusions. IMPRESSION: Interval improvement from May 31 radiographs, probable persistent mild CHF. RADIATION DOSE DELIVERED: Total DLP
[2022-06-20 17:55] LABS: BE (Venous) 10 mmol/L (-2-3); HCO3 (Venous) 35 mmol/L (23-28); O2 Sat (Venous) 53 %; TCO2 (Venous) 33 mmol/L (24-29); pH (Venous) 7.36 (7.31-7.41); pO2 (Venous) 31 mmHg
[2022-06-20 18:02] LABS: pCO2 (Venous) 62 mmHg (41-51)
[2022-06-20 18:16] LABS: PTT Activated 60.4 sec (21.0-27.5)
--- NOTE | 2022-06-20 18:23 | DI.VRAD_ITS ---
PROCEDURE INFORMATION: Exam: XR Chest Exam date and time: 06/20/2022 5:31 PM Age: 81 years old Clinical indication: Cough TECHNIQUE: Imaging protocol: Radiologic exam of the chest. Views: 1 view. COMPARISON: XR PORTABLE CHEST AP 05/31/2022 4:55 AM FINDINGS: Lungs: There is evidence of chronic interstitial lung disease. There is mild pulmonary venous congestion. There is mild and slightly improved diffuse interstitial edema compared to 05/31/2022. Underlying inflammatory or infectious process not excluded. Pleural spaces: There probable small bilateral pleural effusions. No evidence of pneumothorax. Heart/Mediastinum: The heart is enlarged. The mediastinum appears normal. Bones/joints: The skeletal structures and soft tissues show no evidence of fracture or other acute processes. Soft tissues: The soft tissues of the extrathoracic region are unremarkable. IMPRESSION: 2. There is evidence of chronic interstitial lung disease. 3. Probable mild congestive heart failure. There is mild and slightly improved diffuse interstitial edema compared to 05/31/2022. Underlying inflammatory or infectious process not excluded. Dictated and Authenticated by: Aleksandr Cuevas MD. Ordering:ANGLE Bangura MD
[2022-06-20 18:24] LABS: ALT 18 U/L (14-59); AST 21 U/L (15-37); Albumin 3.1 g/dL (3.4-5.0); Alkaline Phosphatase 101 U/L (46-116); Anion Gap 4.5 mmol/L (3-11); BUN 64 mg/dL (7-18); Bilirubin, Total 0.7 mg/dL (0.2-1.0); CO2 33.5 mmol/L (21.0-32.0); Calcium 9.3 mg/dL (8.5-10.1); Chloride 95 mmol/L (98-107); Estimated GFR 10.72 (mL/min/1.73m2); Glucose 104 mg/dL (74-106); NT-proBNP 2589 pg/mL (<300); Potassium 4.2 mmol/L (3.5-5.1); Sodium 133 mmol/L (136-145); Total Protein 8.3 g/dL (6.4-8.2); Troponin I < 50 ng/L (<or=60)
[2022-06-20 18:46] LABS: Abs Immature Grans 0.03 10^3/uL (0.0-0.06); Absolute Basophil Count 0.07 10^3/uL (0.0-0.2); Absolute Eosinophil Count 0.29 10^3/uL (0.0-0.7); Absolute Monocyte Count 0.91 10^3/uL (0.1-0.8); Absolute Neutrophil Count 5.14 10^3/uL (1.2-6.7); Basophils % 0.9; Eosinophils % 3.8; FREE T4 0.86 ng/dL (0.76-1.46); HCT 39.6 % (36.0-46.0); HGB 12.5 g/dL (11.2-15.7); Immature Grans % 0.4; Lymphocytes % 15.7; MCH 32.3 pg (27.0-33.0); MCHC 31.6 % (32.0-36.0); MCV 102 fL (80-95); MPV 10.4 fL (8.0-11.0); Monocytes % 11.9; Neutrophils % 67.3; Platelet Count 234 10^3/uL (130-400); RBC 3.87 10^6/uL (3.93-5.22); RDW-SD 56.7 fL; WBC 7.64 10^3/uL (4.4-10.8)
[2022-06-20 18:59] LABS: Prothrombin Time > 83.4 sec (9.3-11.0)
[2022-06-20 19:12] LABS: INR > 8.8 (0.9-1.1)
[2022-06-20 19:25] LABS: Source Nasal/Nares
[2022-06-20 19:57] LABS: COVID-19 PCR Negative (Negative)
--- NOTE | 2022-06-20 20:21 | HPE_ITS ---
Date of service: 06/20/22 Time of Service: 20:21 Assessment and Plan Assessment and plan (1) Acute renal failure (ARF): Start date: 06/20/22 Status: Acute Assessment and plan: This is an 81-year-old lady recently hospitalized for CHF exacerbation on multiple diuretics presenting with fatigue worsening over 1 week and markedly elevated INR on Coumadin therapy. She was given 1 dose of vitamin K in the ED being on Coumadin for atrial fibrillation and not for acute thromboembolic event. Her diuretics were held except for spironolactone and she was given gen tle IV hydration overnight with follow-up lab to assure correcting patient's dehydration with acute renal failure. Her diuretics may need to be adjusted. Compliance with her medications need to be reviewed as well. She is a DNR/DNI. 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 Follow-up daily PT/INR and adjust Coumadin accordingly. Watch for overt bleed with patient having bruising but no blood seen in sputum with a dry cough, urine or stool thus far. Trend CBC. (3) Chronic obstructive lung disease: Assessment and plan: This was slightly exacerbated by evaluation in the ED patient will continue nebulizers along with oxygen supplementation and Solu-Medrol which can be weaned to prednisone if effective. Her exam has improved when I examined her versus the reported lung exam in the ED. Qualifiers: COPD type: unspecified COPD Qualified Code(s): J44.9 - Chronic obstructive pulmonary disease, unspecified (4) CHF (congestive heart failure): Status: Chronic Assessment and plan: Hold most diuretics for now with gentle IV hydration watch for fluid overload. Patient does have a reduced left ventricular ejection fraction and some element of diastolic dysfunction by problem list. Reinitiate diuretics and adjust as needed to avoid dehydration in the future. Review compliance with medications at home. (5) AF (paroxysmal atrial fibrillation): Assessment and plan: Controlled rate with metoprolol to be continued and review whether amiodarone is still on her medication list. This was not ordered upon admission. Patient is a DNR/DNI. (6) Hypothyroidism: Assessment and plan: TSH is elevated but free T4 is only slightly low. Patient may be intermittently taking her medications which could attribute to her presentation with acute renal failure and hypoprothrombinemia. Review compliance. Continue thyroid supplement as per home list for now with adjustment to be done as an outpatient. Qualifiers: Hypothyroidism type: acquired Qualified Code(s): E03.9 - Hypothyroidism, unspecified History of Present Illness History of Present Illness Chief Complaint: Fatigue worsening over a week Narrative: This is an 81-year-old female patient who recently was hospitalized with exacerbation of CHF and chronic atrial fibrillation with COPD on home O2 chronically and visited by the [facility] for monitoring Coumadin therapy. It appears her diuretics were increased during her last hospitalization and with the home visit her INR was markedly elevated and she appeared more fatigued than usual. The [facility] nurse suggested the patient come to the ED for evaluation. She is not having any chest pain or fever and had no rigors. She did have a cough which was harsh and partially productive but mostly dry. She chronically has a cough and dyspnea. In the ED she was found to have acute elevation of her creatinine more than double her baseline with CKD and had her chronic respiratory findings of wheeze with rhonchi. She was oxygenating well on her usual 2 L of O2 per nasal cannula. Her PT/INR was elevated with INR greater than 8 and she was give n a dose of vitamin K. She is on Coumadin for atrial fibrillation. She had no increase in her peripheral edema with some chronic nonpitting lymphedema and obesity is a problem. She does live with her and has multiple medications with a question of compliance. Her TSH is always elevated which may indicate that she has not taken her medical therapy correctly. When I saw the patient she was feeling better with some IV fluid hydration which was being done gently with normal saline at 100 cc an hour. She was admitted for observation with her diuretics held for now and amiodarone even though on her list was held until this could be cleared as to whether she should still be on this medicine. She is on metoprolol. Review of Systems Narrative: 13 point review of systems otherwise unrevealing or stable. The patient is morbidly obese and appears sedentary. 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) Acute renal failure (ARF) (Acute) Shortness of breath (Acute) Fatigue (Acute) Pulmonary arterial hypertension (Acute) Falls frequently (Acute) Hypomagnesemia (Acute) CHF (congestive heart failure) (Chronic) Status post total right knee replacement (Acute 05/30/20) Abnormal breast finding (Acute 01/19/18) Adenoma of colon (Acute 01/19/18) Bruising (Acute 01/19/18) Chronic depression (Acute 01/19/18) Degenerative arthritis of right knee (Chronic 04/23/15) Disorder of vulva (Acute 01/19/18) Edema leg (Acute 01/19/18) Obesity (Acute 07/11/13) Osteoarthritis (Acute 07/11/13) Other forms of dyspnea (Acute 01/19/18) Overactive bladder (Acute 01/19/18) Primary osteoarthritis of both knees (Chronic 10/29/15) Synvisc injection: 11/04/2019; 05/03/2019 Shortness of breath (Acute 01/19/18) Tendinitis of left shoulder (Acute 01/07/16) Rectal hemorrhage (Acute) Acute on chronic diastolic heart failure (Acute) Chest pain (Acute) Atrial fibrillation (Chronic) SOB (shortness of breath) (Acute) CHF (congestive heart failure) (Chronic) Cough (Acute) Right rotator cuff tendonitis (Acute) Medical History Acute exacerbation of CHF (congestive heart failure) AF (paroxysmal atrial fibrillation) (01/19/18) Cataracts, bilateral Chronic obstructive lung disease (07/11/13) Depression Essential hypertension (07/11/13) H/O adenomatous polyp of colon History of cardioversion Hypertension Hypothyroidism (07/11/13) Morbid obesity Noncompliance with medication regimen Osteoarthritis Tendonitis surgery r arm Surgical History Abdominal hysterectomy H/O colonoscopy x2 H/O: hysterectomy History of carpal tunnel release r wrist Family History Other Heart disease Social History Smoking/Tobacco Use Status: Former Tobacco Use Smoking risk assessment performed?: Yes Alcohol Intake: former Drug use: Never Substance use type: does not use Current gender identity: female Do you feel safe at home: Yes Do you feel safe in your relationship?: Yes Additional Social history: Lives in [place] with Ed who is starting to have cognitive problems. They have financial issues Meds Allergies and Home Medications Allergies Allergy/AdvReac Type Severity Reaction Status Date / Time adhesive Allergy Severe skin rash, Verified 06/04/22 16:16 blisters lisinopril Allergy Intermediate Verified 06/04/22 16:16 amoxicillin [Amoxicillin] Allergy Mild TINGLING Verified 06/04/22 16:16 oxybutynin Allergy Unknown PT CAN'T Verified 06/04/22 16:16 REMEMBER Home Medications Medication Instructions Recorded Confirmed Type Levoxyl 100 mcg tablet 100 mcg PO DAILY 07/11/13 06/20/22 History (levothyroxine) latanoprost 0.005 % eye drops 1 drp ophthalmic (eye) HS 01/19/18 06/20/22 History warfarin 2.5 mg tablet 2.5 mg PO DAILY 01/19/18 06/20/22 History nystatin (bulk) 500 million unit 1 ea miscellaneous DAILY 30 days 02/05/18 06/20/22 Rx powder ##1 fluticasone fur. 100 mcg-umeclid 1 inh inhalation DAILY 03/02/19 06/20/22 History 62.5 mcg-vilant 25 mcg inhalat.powder (Trelegy Ellipta) famotidine 20 mg tablet 20 - 40 mg PO DAILY 05/28/20 06/20/22 History cyanocobalamin (vitamin B-12) 1,000 mcg PO DAILY 05/30/20 06/20/22 History 1,000 mcg tablet (Vitamin B-12) docusate sodium 100 mg capsule 100 mg PO BID #30 caps 05/30/20 06/20/22 Rx (Colace) losartan 100 mg tablet 50 mg PO BID 05/30/20 06/20/22 History naproxen 375 mg tablet 375 mg PO BID PRN #60 tabs 05/30/20 06/20/22 Rx pramipexole 0.125 mg tablet 0.125 - 0.25 mg PO HS PRN Restless 05/30/20 06/20/22 History Leg(S) tramadol 50 mg tablet 50 mg PO Q4H PRN pain #28 tabs 06/11/20 06/20/22 Rx methocarbamol 500 mg tablet 500 mg PO Q6H PRN muscle spasm #14 07/12/20 06/20/22 Rx tabs bupropion HCl 100 mg tablet,12 hr 100 mg PO BID 10/24/21 06/20/22 History sustained-release tizanidine 2 mg tablet See Rx Instructions .Route 04/15/22 06/20/22 Rx .COMPLEX #16 tabs budesonide-formoterol HFA 80 2 puff inhalation BID #10.2 grams 06/03/22 06/20/22 Rx mcg-4.5 mcg/actuation aerosol inhaler (Symbicort) chlorthalidone 25 mg tablet 25 mg PO DAILY #30 tabs 06/03/22 06/20/22 Rx magnesium oxide 400 mg (241.3 mg 400 mg PO BID #60 tabs 06/03/22 06/20/22 Rx magnesium) tablet metoprolol succinate 100 mg 100 mg PO Q12H #30 tabs 06/03/22 06/20/22 Rx tablet,extended release 24 hr spironolactone 25 mg tablet 25 mg PO DAILY #30 tabs 06/03/22 06/20/22 Rx tiotropium bromide 2.5 2 puff inhalation DAILY #4 grams 06/03/22 06/20/22 Rx mcg/actuation mist for inhalation (Spiriva Respimat) torsemide 20 mg tablet 20 mg PO DAILY #30 tabs 06/03/22 06/20/22 Rx amiodarone 200 mg tablet 200 mg PO DAILY 06/04/22 06/20/22 History cholecalciferol (vitamin D3) 25 25 mcg PO DAILY 06/04/22 06/20/22 History mcg (1,000 unit) capsule furosemide 20 mg tablet (Lasix) 20 mg PO BID 06/04/22 06/20/22 History Exam Narrative Exam Narrative: General: Patient appears older than stated age, disheveled and chronically ill- appearing, in no acute distress. She is alert and oriented at least to person and place. HEENT: Normocephalic, coarsened facial features without edema. Eyes with pupils equal and reactive to light symmetrically, extraocular movement intact and sclera anicteric. Oropharynx with dry mucosa. Neck: Supple without JVD. Back: Kyphotic without CVA tenderness. Lungs: Bronchovesicular breath sounds diffusely with slight decrease in aeration at the right base more than left but no adventitious sounds. No rales, rhonchi or coarse crackles auscultated. No expiratory wheeze. Breast: Exam deferred. Heart: Irregularly irregular rhythm with normal rate. No appreciable murmur with distant heart sounds. Abdomen: Obese contour, soft nontender to palpation with no palpable hepatosplenomegaly. Bowel sounds positive in all quadrants. Genitalia/rectal: Exam deferred. Extremities: Gross, nonpitting edema over both lower extremities with sequential teds in place. Multiple bruises over the upper extremities with obesity and what appears to be some lymphedema. Pulses intact. Skin: Pale, warm and dry with diffuse bruising especially over upper extremities. Neuro: Cranial nerves II through XII grossly intact, no focal motor deficits. No tremor. Psych: Normal affect and mood. No abnormal thought processes. Remote memory intact with recent memory less intact. Results Imaging Imaging Studies: Exam: XR Chest Exam date and time: 06/20/2022 5:31 PM Age: 81 years old Clinical indication: Cough TECHNIQUE: Imaging protocol: Radiologic exam of the chest. Views: 1 view. COMPARISON: XR PORTABLE CHEST AP 05/31/2022 4:55 AM FINDINGS: Lungs: There is evidence of chronic interstitial lung disease. There is mild pulmonary venous congestion. There is mild and slightly improved diffuse interstitial edema compared to 05/31/2022. Underlying inflammatory or infectious process not excluded. Pleural spaces: There probable small bilateral pleural effusions. No evidence of pneumothorax. Heart/Mediastinum: The heart is enlarged. The mediastinum appears normal. Bones/joints: The skeletal structures and soft tissues show no evidence of fracture or other acute processes. Soft tissues: The soft tissues of the extrathoracic region are unremarkable. IMPRESSION: 2. There is evidence of chronic interstitial lung disease. 3. Probable mild congestive heart failure.? There is mild and slightly improved diffuse interstitial edema compared to 05/31/2022. Underlying inflammatory or infectious process not excluded. Labs Result diagrams: 06/20/22 17:45 06/20/22 17:45 Labs: Laboratory Results - last 24 hr 06/20/22 06/20/22 06/20/22 17:45 17:45 17:45 WBC RBC Hgb Hct MCV MCH MCHC RDW Plt Count MPV Immature Gran % Neutrophils % Lymphocytes % Monocytes % Eosinophils % Basophils % Nucleated RBC % Absolute Neutrophils Absolute Lymphocytes Absolute Monocytes Absolute Eosinophils Absolute Basophils PT > 83.4 H INR > 8.8 H* APTT 60.4 H ABG Sample Site ABG pH ABG pCO2 ABG pO2 ABG HCO3 ABG Total CO2 ABG O2 Saturation ABG Base Excess VBG pH 7.36 VBG pCO2 62 H* VBG pO2 31 VBG HCO3 35 H VBG Total CO2 33 H VBG O2 Saturation 53 VBG Base Excess 10 H Oxygen Liter Flow FiO2 Sodium 133 L Potassium 4.2 Chloride 95 L Carbon Dioxide 33.5 H Anion Gap 4.5 BUN 64 H Creatinine 4.0 H* Est GFR (CKD-EPI 2020) 10.72 Glucose 104 Calcium 9.3 Magnesium 3.0 H Total Bilirubin 0.7 AST 21 ALT 18 Alkaline Phosphatase 101 Troponin I < 50 NT-Pro-B Natriuret Pep 2589 H Total Protein 8.3 H Albumin 3.1 L TSH 30.20 H Free T4 0.86 COVID-19 Source SARS-CoV-2 (PCR) 06/20/22 06/20/22 06/20/22 17:45 18:06 19:20 WBC 7.64 RBC 3.87 L Hgb 12.5 Hct 39.6 MCV 102 H MCH 32.3 MCHC 31.6 L RDW 15.0 H Plt Count 234 MPV 10.4 Immature Gran % 0.4 Neutrophils % 67.3 Lymphocytes % 15.7 Monocytes % 11.9 Eosinophils % 3.8 Basophils % 0.9 Nucleated RBC % 0.0 Absolute Neutrophils 5.14 Absolute Lymphocytes 1.20 Absolute Monocytes 0.91 H Absolute Eosinophils 0.29 Absolute Basophils 0.07 PT INR APTT ABG Sample Site Cancelled ABG pH Cancelled ABG pCO2 Cancelled ABG pO2 Cancelled ABG HCO3 Cancelled ABG Total CO2 Cancelled ABG O2 Saturation Cancelled ABG Base Excess Cancelled VBG pH VBG pCO2 VBG pO2 VBG HCO3 VBG Total CO2 VBG O2 Saturation VBG Base Excess Oxygen Liter Flow Cancelled FiO2 Cancelled Sodium Potassium Chloride Carbon Dioxide Anion Gap BUN Creatinine Est GFR (CKD-EPI 2020) Glucose Calcium Magnesium Total Bilirubin AST ALT Alkaline Phosphatase Troponin I NT-Pro-B Natriuret Pep Total Protein Albumin TSH Free T4 COVID-19 Source Nasal/Nares SARS-CoV-2 (PCR) Negative Last Vital Signs Temp 36.6 C 06/20/22 16:11 Pulse 73 06/20/22 16:11 Resp 18 06/20/22 16:11 BP 128/80 06/20/22 16:11 Pulse Ox 94 06/20/22 16:11
--- NOTE | 2022-06-20 20:22 | W.ED.GENAD ---
Discharge Plan Disposition Patient Disposition: [facility] INPATIENT Condition: Stable Discharge Details Clinical Impression: Acute kidney injury superimposed on chronic kidney disease, Supratherapeutic INR Admit Date/Time: 06/20/22 19:44 Admit Provider: Isai Alexander Attending Provider: Isai Alexander Primary Care Provider: Ginny Scherer V ED Provider: Estela Florentino Medical Decision Making Medical Records Medical records reviewed: Yes I reviewed the patient's medical records. Medical records narrative: Signout and care of patient received. Patient vital signs remain stable with no tachycardia or hypotension. She has no complaints. Her labs are reviewed and she is found to have acute on chronic renal failure with a creatinine up to 4 from 2.4 also noted to have an INR greater than 8. No evidence or signs of active bleeding but due to high risk for bleeding she is given oral vitamin K 2.5 mg. Her case was discussed with Dr. Alexander from hospitalist services who has agreed to refer her to observation overnight for further management and repeat lab work in the a.m. plan is discussed with patient who is in agreement with admission she has no new complaints Lab Data Lab results reviewed: Yes I reviewed the patient's lab results. Labs: Laboratory Results - last 24 hr 06/20/22 06/20/22 06/20/22 17:45 17:45 17:45 WBC RBC Hgb Hct MCV MCH MCHC RDW Plt Count MPV Immature Gran % Neutrophils % Lymphocytes % Monocytes % Eosinophils % Basophils % Nucleated RBC % Absolute Neutrophils Absolute Lymphocytes Absolute Monocytes Absolute Eosinophils Absolute Basophils PT > 83.4 H INR > 8.8 H* APTT 60.4 H ABG Sample Site ABG pH ABG pCO2 ABG pO2 ABG HCO3 ABG Total CO2 ABG O2 Saturation ABG Base Excess VBG pH 7.36 VBG pCO2 62 H* VBG pO2 31 VBG HCO3 35 H VBG Total CO2 33 H VBG O2 Saturation 53 VBG Base Excess 10 H Oxygen Liter Flow FiO2 Sodium 133 L Potassium 4.2 Chloride 95 L Carbon Dioxide 33.5 H Anion Gap 4.5 BUN 64 H Creatinine 4.0 H* Est GFR (CKD-EPI 2020) 10.72 Glucose 104 Calcium 9.3 Magnesium 3.0 H Total Bilirubin 0.7 AST 21 ALT 18 Alkaline Phosphatase 101 Troponin I < 50 NT-Pro-B Natriuret Pep 2589 H Total Protein 8.3 H Albumin 3.1 L TSH 30.20 H Free T4 0.86 COVID-19 Source SARS-CoV-2 (PCR) 06/20/22 06/20/22 06/20/22 17:45 18:06 19:20 WBC 7.64 RBC 3.87 L Hgb 12.5 Hct 39.6 MCV 102 H MCH 32.3 MCHC 31.6 L RDW 15.0 H Plt Count 234 MPV 10.4 Immature Gran % 0.4 Neutrophils % 67.3 Lymphocytes % 15.7 Monocytes % 11.9 Eosinophils % 3.8 Basophils % 0.9 Nucleated RBC % 0.0 Absolute Neutrophils 5.14 Absolute Lymphocytes 1.20 Absolute Monocytes 0.91 H Absolute Eosinophils 0.29 Absolute Basophils 0.07 PT INR APTT ABG Sample Site Cancelled ABG pH Cancelled ABG pCO2 Cancelled ABG pO2 Cancelled ABG HCO3 Cancelled ABG Total CO2 Cancelled ABG O2 Saturation Cancelled ABG Base Excess Cancelled VBG pH VBG pCO2 VBG pO2 VBG HCO3 VBG Total CO2 VBG O2 Saturation VBG Base Excess Oxygen Liter Flow Cancelled FiO2 Cancelled Sodium Potassium Chloride Carbon Dioxide Anion Gap BUN Creatinine Est GFR (CKD-EPI 2020) Glucose Calcium Magnesium Total Bilirubin AST ALT Alkaline Phosphatase Troponin I NT-Pro-B Natriuret Pep Total Protein Albumin TSH Free T4 COVID-19 Source Nasal/Nares SARS-CoV-2 (PCR) Negative HPI General Mode of arrival: EMS. Date/Time Provider Initiated Documentation: 06/20/22 16:17. Limitations to Documentation: no limitations. Information obtained by: patient. History of Present Illness Rest improves symptom(s), Movement worsens symptoms . Patient notes cough. Patient did receive the following treatments prior to arrival, none Related Data Home Medications Medication Instructions Recorded Confirmed Levoxyl 100 mcg tablet 100 mcg PO DAILY 07/11/13 06/20/22 (levothyroxine) latanoprost 0.005 % eye drops 1 drp ophthalmic (eye) HS 01/19/18 06/20/22 warfarin 2.5 mg tablet 2.5 mg PO DAILY 01/19/18 06/20/22 nystatin (bulk) 500 million unit 1 ea miscellaneous DAILY 30 days 02/05/18 06/20/22 powder ##1 fluticasone fur. 100 mcg-umeclid 1 inh inhalation DAILY 03/02/19 06/20/22 62.5 mcg-vilant 25 mcg inhalat.powder (Trelegy Ellipta) famotidine 20 mg tablet 20 - 40 mg PO DAILY 05/28/20 06/20/22 cyanocobalamin (vitamin B-12) 1,000 mcg PO DAILY 05/30/20 06/20/22 1,000 mcg tablet (Vitamin B-12) docusate sodium 100 mg capsule 100 mg PO BID #30 caps 05/30/20 06/20/22 (Colace) losartan 100 mg tablet 50 mg PO BID 05/30/20 06/20/22 naproxen 375 mg tablet 375 mg PO BID PRN #60 tabs 05/30/20 06/20/22 pramipexole 0.125 mg tablet 0.125 - 0.25 mg PO HS PRN Restless 05/30/20 06/20/22 Leg(S) tramadol 50 mg tablet 50 mg PO Q4H PRN pain #28 tabs 06/11/20 06/20/22 methocarbamol 500 mg tablet 500 mg PO Q6H PRN muscle spasm #14 07/12/20 06/20/22 tabs bupropion HCl 100 mg tablet,12 hr 100 mg PO BID 10/24/21 06/20/22 sustained-release tizanidine 2 mg tablet See Rx Instructions .Route 04/15/22 06/20/22 .COMPLEX #16 tabs budesonide-formoterol HFA 80 2 puff inhalation BID #10.2 grams 06/03/22 06/20/22 mcg-4.5 mcg/actuation aerosol inhaler (Symbicort) chlorthalidone 25 mg tablet 25 mg PO DAILY #30 tabs 06/03/22 06/20/22 magnesium oxide 400 mg (241.3 mg 400 mg PO BID #60 tabs 06/03/22 06/20/22 magnesium) tablet metoprolol succinate 100 mg 100 mg PO Q12H #30 tabs 06/03/22 06/20/22 tablet,extended release 24 hr spironolactone 25 mg tablet 25 mg PO DAILY #30 tabs 06/03/22 06/20/22 tiotropium bromide 2.5 2 puff inhalation DAILY #4 grams 09/20/22 10/07/22 mcg/actuation mist for inhalation (Spiriva Respimat) torsemide 20 mg tablet 20 mg PO DAILY #30 tabs 06/03/22 06/20/22 amiodarone 200 mg tablet 200 mg PO DAILY 06/04/22 06/20/22 cholecalciferol (vitamin D3) 25 25 mcg PO DAILY 06/04/22 06/20/22 mcg (1,000 unit) capsule furosemide 20 mg tablet (Lasix) 20 mg PO BID 06/04/22 06/20/22 Previous Rx's Medication Instructions Recorded nystatin (bulk) 500 million unit 1 ea miscellaneous DAILY 30 days 02/05/18 powder ##1 docusate sodium 100 mg capsule 100 mg PO BID #30 caps 05/30/20 (Colace) naproxen 375 mg tablet 375 mg PO BID PRN #60 tabs 05/30/20 tramadol 50 mg tablet 50 mg PO Q4H PRN pain #28 tabs 06/11/20 methocarbamol 500 mg tablet 500 mg PO Q6H PRN muscle spasm #14 07/12/20 tabs tizanidine 2 mg tablet See Rx Instructions .Route 04/15/22 .COMPLEX #16 tabs budesonide-formoterol HFA 80 2 puff inhalation BID #10.2 grams 06/03/22 mcg-4.5 mcg/actuation aerosol inhaler (Symbicort) chlorthalidone 25 mg tablet 25 mg PO DAILY #30 tabs 06/03/22 magnesium oxide 400 mg (241.3 mg 400 mg PO BID #60 tabs 06/03/22 magnesium) tablet metoprolol succinate 100 mg 100 mg PO Q12H #30 tabs 06/03/22 tablet,extended release 24 hr spironolactone 25 mg tablet 25 mg PO DAILY #30 tabs 06/03/22 tiotropium bromide 2.5 2 puff inhalation DAILY #4 grams 06/03/22 mcg/actuation mist for inhalation (Spiriva Respimat) torsemide 20 mg tablet 20 mg PO DAILY #30 tabs 06/03/22 Allergies Allergy/AdvReac Type Severity Reaction Status Date / Time adhesive Allergy Severe skin rash, Verified 06/04/22 16:16 blisters lisinopril Allergy Intermediate Verified 06/04/22 16:16 amoxicillin [Amoxicillin] Allergy Mild TINGLING Verified 06/04/22 16:16 oxybutynin Allergy Unknown PT CAN'T Verified 06/04/22 16:16 REMEMBER General Stated Complaint: GenMedical CECILIA: 3 PFSH All Active Problems (Updated 06/20/22 @ 20:27 by Isai Alexander) 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) Acute renal failure (ARF) (Acute) Shortness of breath (Acute) Fatigue (Acute) Pulmonary arterial hypertension (Acute) Falls frequently (Acute) Hypomagnesemia (Acute) CHF (congestive heart failure) (Chronic) Status post total right knee replacement (Acute 05/30/20) Abnormal breast finding (Acute 01/19/18) Adenoma of colon (Acute 01/19/18) Bruising (Acute 01/19/18) Chronic depression (Acute 01/19/18) Degenerative arthritis of right knee (Chronic 04/23/15) Disorder of vulva (Acute 01/19/18) Edema leg (Acute 01/19/18) Obesity (Acute 07/11/13) Osteoarthritis (Acute 07/11/13) Other forms of dyspnea (Acute 01/19/18) Overactive bladder (Acute 01/19/18) Primary osteoarthritis of both knees (Chronic 10/29/15) Synvisc injection: 11/04/2019; 05/03/2019 Shortness of breath (Acute 01/19/18) Tendinitis of left shoulder (Acute 01/07/16) Rectal hemorrhage (Acute) Acute on chronic diastolic heart failure (Acute) Chest pain (Acute) Atrial fibrillation (Chronic) SOB (shortness of breath) (Acute) CHF (congestive heart failure) (Chronic) Cough (Acute) Right rotator cuff tendonitis (Acute) Medical History Acute exacerbation of CHF (congestive heart failure) AF (paroxysmal atrial fibrillation) (01/19/18) Cataracts, bilateral Chronic obstructive lung disease (07/11/13) Depression Essential hypertension (07/11/13) H/O adenomatous polyp of colon History of cardioversion Hypertension Hypothyroidism (07/11/13) Morbid obesity Noncompliance with medication regimen Osteoarthritis Tendonitis surgery r arm Surgical History Abdominal hysterectomy H/O colonoscopy x2 H/O: hysterectomy History of carpal tunnel release r wrist Family History Other Heart disease Social History (Updated 05/31/22 @ 06:43 by Cristian Huertas) Smoking/Tobacco Use Status: Former Tobacco Use Smoking risk assessment performed?: Yes Alcohol Intake: former Drug use: Never Substance use type: does not use Current gender identity: female Do you feel safe at home: Yes Do you feel safe in your relationship?: Yes Additional Social history: Lives in [place] with Ed who is starting to have cognitive problems. They have financial issues Course Vital Signs Vital signs: Vital Signs Temperature 36.6 C 06/20/22 16:11 Pulse 73 06/20/22 16:11 Respiratory Rate 18 06/20/22 16:11 Blood Pressure 128/80 06/20/22 16:11 Pulse Oximetry 94 06/20/22 16:11 Temperature 36.6 C 06/20/22 16:11 Temperature Source Temporal Artery Scan 06/20/22 16:11 Pulse 73 06/20/22 16:11 Respiratory Rate 18 06/20/22 16:11 Respiratory Effort 06/20/22 16:40 Respiratory Depth Shallow 06/20/22 16:40 Respiratory Pattern Normal 06/20/22 16:40 Blood Pressure 128/80 06/20/22 16:11 Blood Pressure Position Sitting 06/20/22 16:11 Pulse Oximetry 94 06/20/22 16:11 Oxygen Delivery Method Nasal Cannula 06/20/22 16:11 Oxygen Flow Rate 3 06/20/22 16:11 Pain Level 0 06/20/22 16:11 Lab/Test Results Lab/Test Results: Laboratory Tests Range/Units 06/20/22 06/20/22 06/20/22 17:45 17:45 17:45 WBC (4.4-10.8) 10^3/uL RBC (3.93-5.22) 10^6/uL Hgb (11.2-15.7) g/dL Hct (36.0-46.0) % MCV (80-95) fL MCH (27.0-33.0) pg MCHC (32.0-36.0) % RDW (11.7-14.6) % Plt Count (130-400) 10^3/uL MPV (8.0-11.0) fL Immature Gran % Neutrophils % Lymphocytes % Monocytes % Eosinophils % Basophils % Nucleated RBC % (0.0-0.3) % Absolute Neutrophils (1.2-6.7) 10^3/uL Absolute Lymphocytes (1.2-3.4) 10^3/uL Absolute Monocytes (0.1-0.8) 10^3/uL Absolute Eosinophils (0.0-0.7) 10^3/uL Absolute Basophils (0.0-0.2) 10^3/uL PT (9.3-11.0) sec > 83.4 H INR (0.9-1.1) > 8.8 H* APTT (21.0-27.5) sec 60.4 H ABG Sample Site ABG pH ABG pCO2 ABG pO2 ABG HCO3 ABG Total CO2 ABG O2 Saturation ABG Base Excess VBG pH (7.31-7.41) 7.36 VBG pCO2 (41-51) mmHg 62 H* VBG pO2 mmHg 31 VBG HCO3 (23-28) mmol/L 35 H VBG Total CO2 (24-29) mmol/L 33 H VBG O2 Saturation % 53 VBG Base Excess (-2-3) mmol/L 10 H Oxygen Liter Flow FiO2 Sodium (136-145) mmol/L 133 L Potassium (3.5-5.1) mmol/L 4.2 Chloride (98-107) mmol/L 95 L Carbon Dioxide (21.0-32.0) mmol/L 33.5 H Anion Gap (3-11) mmol/L 4.5 BUN (7-18) mg/dL 64 H Creatinine (0.55-1.02) mg/dL 4.0 H* Est GFR (CKD-EPI 2020) (mL/min/1.73m2) 10.72 Glucose (74-106) mg/dL 104 Calcium (8.5-10.1) mg/dL 9.3 Magnesium (1.8-2.4) mg/dL 3.0 H Total Bilirubin (0.2-1.0) mg/dL 0.7 AST (15-37) U/L 21 ALT (14-59) U/L 18 Alkaline Phosphatase (46-116) U/L 101 Troponin I (<or=60) ng/L < 50 NT-Pro-B Natriuret Pep (<300) pg/mL 2589 H Total Protein (6.4-8.2) g/dL 8.3 H Albumin (3.4-5.0) g/dL 3.1 L TSH (0.36-3.74) uIU/mL 30.20 H Free T4 (0.76-1.46) ng/dL 0.86 COVID-19 Source SARS-CoV-2 (PCR) (Negative) Range/Units 06/20/22 06/20/22 06/20/22 17:45 18:06 19:20 WBC (4.4-10.8) 10^3/uL 7.64 RBC (3.93-5.22) 10^6/uL 3.87 L Hgb (11.2-15.7) g/dL 12.5 Hct (36.0-46.0) % 39.6 MCV (80-95) fL 102 H MCH (27.0-33.0) pg 32.3 MCHC (32.0-36.0) % 31.6 L RDW (11.7-14.6) % 15.0 H Plt Count (130-400) 10^3/uL 234 MPV (8.0-11.0) fL 10.4 Immature Gran % 0.4 Neutrophils % 67.3 Lymphocytes % 15.7 Monocytes % 11.9 Eosinophils % 3.8 Basophils % 0.9 Nucleated RBC % (0.0-0.3) % 0.0 Absolute Neutrophils (1.2-6.7) 10^3/uL 5.14 Absolute Lymphocytes (1.2-3.4) 10^3/uL 1.20 Absolute Monocytes (0.1-0.8) 10^3/uL 0.91 H Absolute Eosinophils (0.0-0.7) 10^3/uL 0.29 Absolute Basophils (0.0-0.2) 10^3/uL 0.07 PT (9.3-11.0) sec INR (0.9-1.1) APTT (21.0-27.5) sec ABG Sample Site Cancelled ABG pH Cancelled ABG pCO2 Cancelled ABG pO2 Cancelled ABG HCO3 Cancelled ABG Total CO2 Cancelled ABG O2 Saturation Cancelled ABG Base Excess Cancelled VBG pH (7.31-7.41) VBG pCO2 (41-51) mmHg VBG pO2 mmHg VBG HCO3 (23-28) mmol/L VBG Total CO2 (24-29) mmol/L VBG O2 Saturation % VBG Base Excess (-2-3) mmol/L Oxygen Liter Flow Cancelled FiO2 Cancelled Sodium (136-145) mmol/L Potassium (3.5-5.1) mmol/L Chloride (98-107) mmol/L Carbon Dioxide (21.0-32.0) mmol/L Anion Gap (3-11) mmol/L BUN (7-18) mg/dL Creatinine (0.55-1.02) mg/dL Est GFR (CKD-EPI 2020) (mL/min/1.73m2) Glucose (74-106) mg/dL Calcium (8.5-10.1) mg/dL Magnesium (1.8-2.4) mg/dL Total Bilirubin (0.2-1.0) mg/dL AST (15-37) U/L ALT (14-59) U/L Alkaline Phosphatase (46-116) U/L Troponin I (<or=60) ng/L NT-Pro-B Natriuret Pep (<300) pg/mL Total Protein (6.4-8.2) g/dL Albumin (3.4-5.0) g/dL TSH (0.36-3.74) uIU/mL Free T4 (0.76-1.46) ng/dL COVID-19 Source Nasal/Nares SARS-CoV-2 (PCR) (Negative) Negative Sign Out Sign Out Data: Sign Out Comment: primary complaint is fatigue worsening over a week, mild wheezing, on home o2 for copd. Recent admission for chf/afib. Pending labs and xray, reassessment after duoneb and methylprednisolone Last updated by Willem Hawley MD at 06/20/22 17:11
[2022-06-20] MEDS: Phytonadione 5 MG TABLET 2.5 MG PO (20:24)
[2022-06-20] MEDS: methylPREDNISolone SUCC 125 MG VIAL IVP (20:25)
[2022-06-20] MEDS: Albuterol/Ipratropium 3 ML UPD VIAL UPD ×2 (20:29→22:57)
[2022-06-20] MEDS: Normal Saline 1,000 ML 100 ML IV (20:31)
[2022-06-20] MEDS: methylPREDNISolone SUCC 125 MG VIAL (20:37)
[2022-06-20 21:10] VITALS: BP 124/74; PULSE 71; RESP 16; TEMP 35.4; O2SAT 100
[2022-06-20 22:57] VITALS: RESP 16; RESP 8
[2022-06-20] MEDS: guaiFENesin/D-METHORPHAN HB 5 ML CUP 10 ML PO (22:57)
[2022-06-20] MEDS: Metoprolol 25 MG TAB PO (22:57)
[2022-06-20 23:10] VITALS: BP 130/79; PULSE 68; RESP 16; TEMP 35.5; O2SAT 98
[2022-06-20 23:27] VITALS: RESP 8
[2022-06-21] VITALS (9 sets, daily range): BP systolic 119–145; BP diastolic 75–96; PULSE 70–110; RESP 1–20; TEMP 35.7–36.9; O2SAT 94–99
[2022-06-21 02:54] LABS: Bilirubin Negative (Negative); Blood Negative (Negative); Clarity Clear (Clear); Glucose 100 mg/dL (Negative); Ketones Negative (Negative); Leukocyte Esterase Negative (Negative); Nitrite Negative (Negative); Urobilinogen 0.2 EU/dL (Up TO 0.2)
[2022-06-21] MEDS: Albuterol/Ipratropium 3 ML UPD VIAL UPD ×4 (03:51→20:52)
[2022-06-21] MEDS: methylPREDNISolone SUCC 40 MG VIAL IVP ×3 (03:52→20:11)
[2022-06-21] MEDS: Metoprolol 25 MG TAB PO ×4 (03:53→20:51)
[2022-06-21] MEDS: Levothyroxine 100 MCG TAB PO (05:18)
[2022-06-21 06:50] LABS: Abs Immature Grans 0.03 10^3/uL (0.0-0.06); Absolute Basophil Count 0.01 10^3/uL (0.0-0.2); Absolute Lymphocyte Count 0.34 10^3/uL (1.2-3.4); Absolute Monocyte Count 0.04 10^3/uL (0.1-0.8); Absolute Neutrophil Count 5.88 10^3/uL (1.2-6.7); Basophils % 0.2; HCT 37.2 % (36.0-46.0); HGB 12.2 g/dL (11.2-15.7); Immature Grans % 0.5; Lymphocytes % 5.4; MCH 32.7 pg (27.0-33.0); MCHC 32.8 % (32.0-36.0); MCV 100 fL (80-95); MPV 10.2 fL (8.0-11.0); Monocytes % 0.6; Neutrophils % 93.3; Platelet Count 223 10^3/uL (130-400); RBC 3.73 10^6/uL (3.93-5.22); RDW 14.7 % (11.7-14.6); RDW-SD 54.1 fL
[2022-06-21 07:09] LABS: Anion Gap 8.6 mmol/L (3-11); BUN 59 mg/dL (7-18); CO2 29.4 mmol/L (21.0-32.0); CREATININE 2.8 mg/dL (0.55-1.02); Chloride 98 mmol/L (98-107); Estimated GFR 16.45 (mL/min/1.73m2); Glucose 152 mg/dL (74-106); Potassium 4.2 mmol/L (3.5-5.1); Sodium 136 mmol/L (136-145)
[2022-06-21 07:28] LABS: Prothrombin Time 55.3 sec (9.3-11.0)
[2022-06-21 07:32] LABS: INR 6.2 (0.9-1.1)
--- NOTE | 2022-06-21 08:20 | PDOC.CMIN ---
- If Service Date Differs Date of service: 06/21/22 Time of Service: 08:20 Care Management Initial Assess REASON FOR HOSPITALIZATION:: Acute Renal Failure, Hypoprothrombinemia. 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 Fatigue (Acute), Pulmonary arterial hypertension (Acute), Falls frequently (Acute), Hypomagnesemia (Acute), CHF (congestive heart failure) (Chronic), Status post total right knee replacement (Acute 05/30/20),. Abnormal breast finding (Acute 01/19/18), Adenoma of colon (Acute 01/19/18), Bruising (Acute 01/19/18), Chronic depression (Acute 01/19/18), Degenerative arthritis of right knee (Chronic 04/23/15),. Disorder of vulva (Acute 01/19/18), Edema leg (Acute 01/19/18), Obesity (Acute 07/11/13), Osteoarthritis (Acute 07/11/13), Other forms of dyspnea (Acute 01/19/18), Overactive bladder (Acute 01/19/18), Primary osteoarthritis of both knees (Chronic 10/29/15) - Synvisc injection: 11/04/2019; 05/03/2019, Shortness of breath (Acute 01/19/18), Tendinitis of left shoulder (Acute 01/07/16), Rectal hemorrhage (Acute), Acute on chronic diastolic heart failure (Acute), Chest pain (Acute), Atrial fibrillation (Chronic), SOB (shortness of breath) (Acute), CHF (congestive heart failure) (Chronic), Cough (Acute), and Right rotator cuff tendonitis (Acute). Medical History: Acute exacerbation of CHF (congestive heart failure),. AF (paroxysmal atrial fibrillation) (01/19/18), Cataracts, bilateral,. Chronic obstructive lung disease (07/11/13), Depression, Essential hypertension (07/11/13), H/O adenomatous polyp of colon, History of cardioversion, Hypertension, Hypothyroidism (07/11/13), Morbid obesity,. Noncompliance with medication regimen, Osteoarthritis, and Tendonitis -. surgery r arm. Surgical History: Abdominal hysterectomy, H/O colonoscopy x2, H/O: hysterectomy, and History of carpal tunnel release - r wrist. PREVIOUS FUNCTIONAL STATUS/SOCIAL/FAMILY SUPPORTS:: Celeste lives with her Valentin (goes by Rafat) in [place]. Her adult children live out of state. Her eldest son who resided in [place] on July 30, 2020. Celeste remains close to his daughter and is considering moving to [place] to be near her and her family. 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 She is independent with her ADLs at baseline. CURRENT FUNCTIONAL STATUS:: Celeste is sitting up in bed watching television when CM comes to meet with her. She is pleasant and easily engages in conversation. She talks about some of the repairs her home requires and says a garage window was broken a while ago when a bear jumped through it. ADVANCE DIRECTIVES:: None on file; DPOA listed as her spouse, Ed. Has patient been provided with info about the portal/API?: Yes Did the patient sign up for the portal?: No CODE STATUS:: DNR/DNI INSURANCE COVERAGE / FINANCIAL ISSUES:: [employer] [facility] Medicare Replacement Plan. CURRENT HOME/COMMUNITY SERVICES/EQUIPMENT:: Home Health nursing twice a week and PT also twice a week, MOWs, FWW, Oxygen Therapy through [facility], ramp, hearing aids, and eyeglasses. PRIMARY CARE PHYSICIAN:: Ginny Scherer MD ([facility]). POTENTIAL DISCHARGE NEEDS:: Follow up appointment with PCP. PATIENT/FAMILY EDUCATION NEEDS:: Review of discharge instructions re medications, limitations, and follow up plan of care. ANTICIPATED BARRIERS TO DISCHARGE:: No barriers identified at this time. TRANSPORTATION:: Via private vehicle with her . PLAN:: Celeste will likely discharge home with a resumption of HH RN/PT services when medically cleared by provider. She will follow up with her PCP and plan of care as prescribed. She will be transported home by her via private vehicle when ready. CM will continue to follow. Readmission - Within the Past 30 Days Yes or No: Y - Date of First Admission Date of 1st Admission: 05/31/22 - Date of this Admission Date of Admission: 06/20/22 This admission was: Through ED - Office Visit Since 1st Admission Have you seen your PCP in the office since discharge?: Yes Date of PCP Appointment: 06/13/2022 Had an appointment Been Scheduled?: Yes Date of Scheduled Appointment: 06/13/2022 - Speicalist Appointments Have you seen any other specialist since your 1st Admission?: Yes Date you saw the Specialist: 06/05/2022 Specialist Seen: Neisha Rajan - medical technologist chief - I. Interview patient and/or Family Difficulty reaching your doctor or getting an office appt?: No Have you had trouble purchasing/ or taking medication?: No How do you take your medications and set up your pills?: Patient self-administers her medications. She keeps her pills in a tote. The pills she takes during the day are kept right side up in the tote and the ones she takes at night are in the tote upside down. Patient states she takes all of her daytime meds at once during the day and repeats the process with the night meds at nighttime. The Home Health nurse has suggested bubble packing the meds and Celeste is in agreement with this but is waiting for her current meds to run out. Have you had trouble with getting meals at home?: No Describe your typical meals since you have been home: Has MOWs 3 times a week and depends on the food pantry and [employer] for food to fill the gaps. Did you feel ready for discharge when you left the last time: Yes Were services received that you thought were set up on disch: Yes What services were received?: Home Health RN/PT. Did you call your physician beore you came to the ED?: Yes Did your physician tell you to come in?: Yes How do you think you became sick enough to come back?: I'm not sure. The Home Health nurse was at my house and she checked my blood and my numbers were through the roof. She called my doctor and she was told to send me to the hospital. - If the patient had a VNA ordered Did the patient have a VNA order?: Yes Did you call the VNA before you came?: No (VNA was at the house) Did the VNA tell you to come to the hospital?: Yes Do you know if the VNA called your physician?: Yes (PCP instructed patient to come to [facility]) - Ask the Care Team Members: What do you think caused the patient to be readmitted: Per ER note, Celeste has experienced constant fatigue for a week, in addition to a cough. Per H&P, Celeste is given IV hydration overnight with follow-up lab to ensure the dehydration with acute renal failure is corrected. - ED visits How many ED visits in the past 12 months: 3 - Assessment for Readmission Summary of readmission circumstances, based upon interviews: Celeste was recently hospitalized for CHF exacerbation. She now presents at [facility] for worsening fatigue over the past week and markedly elevated INR on Coumadin therapy. Celeste is readmitted to adjust her diuretics and to review her compliance with medications at home.
[2022-06-21] MEDS: Benzonatate 200 MG CAP PO ×3 (08:53→19:12)
[2022-06-21] MEDS: buPROPion-CR 100 MG TABCR PO ×2 (08:53→19:12)
[2022-06-21] MEDS: Losartan 50 MG TAB PO ×2 (08:54→19:12)
[2022-06-21] MEDS: Famotidine 20 MG TAB 40 MG PO (08:54)
[2022-06-21] MEDS: Spironolactone 25 MG TAB PO (09:07)
[2022-06-21] MEDS: Nystatin POWDER 60 GM JAR TP ×3 (09:08→19:13)
--- NOTE | 2022-06-21 12:28 | W.PM.PROGNOT ---
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 I&O, daily weights echo Conclusion Mild concentric left ventricular hypertrophy.? Estimated ejection fraction is 40 to 45%.? There is mild global hypokinesis.? The patient is in atrial fibrillation with [id number] variation, fair heart rate control throughout the study Right ventricle was not well visualized Left atrium is mildly dilated.? The right atrium is moderately dilated Trileaflet aortic valve without stenosis or regurgitation Mild mitral regurgitation Mild tricuspid regurgitation.? Estimated right ventricular systolic pressure is 29 mmHg (5) AF (paroxysmal atrial fibrillation): Assessment and plan: Controlled rate with metoprolol to be continued and review whether amiodarone is still on her medication list. This was not ordered upon admission. Patient is a DNR/DNI. (6) Hypothyroidism: Assessment and plan: TSH is elevated but free T4 is only slightly low. Patient may be intermittently taking her medications which could attribute to her presentation with acute renal failure and hypoprothrombinemia. Review compliance. Continue thyroid supplement as per home list for now with adjustment to be done as an outpatient. discussed with DR Ingram Qualifiers: Hypothyroidism type: acquired Qualified Code(s): E03.9 - Hypothyroidism, unspecified (7) Discharge planning issues: Status: Acute Assessment and plan: pharmacy review of medication plan to discharge tomorrow with resumption of home health services. discussed with DR Ingram Subjective Subjective Patient reports: no new complaints, feels better, tolerating liquids well, tolerating a regular diet, voiding w/o difficulty and afebrile; denies shortness of breath Exam Const General: no acute distress Orientation: alert HENMT Head: normal to inspection Ears: external ears normal Eyes General: appearance normal, both eyes and all related structures Neck Neck: normal visual inspection Resp Effort & Inspection: cough Cardio Rate: regular rate Skin General skin exam: no rashes or lesions noted Neuro General: patient alert and patient oriented x3 Extrem General: normal to inspection Psych Mental Status: mental status grossly normal Objective Last Vital Signs Temp 36 C L 06/21/22 11:30 Pulse 70 06/21/22 11:30 Resp 16 06/21/22 11:30 BP 123/82 06/21/22 11:30 Pulse Ox 99 06/21/22 11:30 Laboratory Results - last 24 hr 06/20/22 06/20/22 06/20/22 17:45 17:45 17:45 WBC RBC Hgb Hct MCV MCH MCHC RDW Plt Count MPV Immature Gran % Neutrophils % Lymphocytes % Monocytes % Eosinophils % Basophils % Nucleated RBC % Absolute Neutrophils Absolute Lymphocytes Absolute Monocytes Absolute Eosinophils Absolute Basophils PT > 83.4 H INR > 8.8 H* APTT 60.4 H ABG Sample Site ABG pH ABG pCO2 ABG pO2 ABG HCO3 ABG Total CO2 ABG O2 Saturation ABG Base Excess VBG pH 7.36 VBG pCO2 62 H* VBG pO2 31 VBG HCO3 35 H VBG Total CO2 33 H VBG O2 Saturation 53 VBG Base Excess 10 H Oxygen Liter Flow FiO2 Sodium 133 L Potassium 4.2 Chloride 95 L Carbon Dioxide 33.5 H Anion Gap 4.5 BUN 64 H Creatinine 4.0 H* Est GFR (CKD-EPI 2020) 10.72 Glucose 104 Calcium 9.3 Magnesium 3.0 H Total Bilirubin 0.7 AST 21 ALT 18 Alkaline Phosphatase 101 Troponin I < 50 NT-Pro-B Natriuret Pep 2589 H Total Protein 8.3 H Albumin 3.1 L TSH 30.20 H Free T4 0.86 Urine Color Urine Clarity Urine pH Ur Specific [place] Urine Protein Urine Ketones Urine Blood Urine Nitrite Urine Bilirubin Urine Urobilinogen Ur Leukocyte Esterase Urine Glucose COVID-19 Source SARS-CoV-2 (PCR) 06/20/22 06/20/22 06/20/22 17:45 18:06 19:20 WBC 7.64 RBC 3.87 L Hgb 12.5 Hct 39.6 MCV 102 H MCH 32.3 MCHC 31.6 L RDW 15.0 H Plt Count 234 MPV 10.4 Immature Gran % 0.4 Neutrophils % 67.3 Lymphocytes % 15.7 Monocytes % 11.9 Eosinophils % 3.8 Basophils % 0.9 Nucleated RBC % 0.0 Absolute Neutrophils 5.14 Absolute Lymphocytes 1.20 Absolute Monocytes 0.91 H Absolute Eosinophils 0.29 Absolute Basophils 0.07 PT INR APTT ABG Sample Site Cancelled ABG pH Cancelled ABG pCO2 Cancelled ABG pO2 Cancelled ABG HCO3 Cancelled ABG Total CO2 Cancelled ABG O2 Saturation Cancelled ABG Base Excess Cancelled VBG pH VBG pCO2 VBG pO2 VBG HCO3 VBG Total CO2 VBG O2 Saturation VBG Base Excess Oxygen Liter Flow Cancelled FiO2 Cancelled Sodium Potassium Chloride Carbon Dioxide Anion Gap BUN Creatinine Est GFR (CKD-EPI 2020) Glucose Calcium Magnesium Total Bilirubin AST ALT Alkaline Phosphatase Troponin I NT-Pro-B Natriuret Pep Total Protein Albumin TSH Free T4 Urine Color Urine Clarity Urine pH Ur Specific [place] Urine Protein Urine Ketones Urine Blood Urine Nitrite Urine Bilirubin Urine Urobilinogen Ur Leukocyte Esterase Urine Glucose COVID-19 Source Nasal/Nares SARS-CoV-2 (PCR) Negative 06/21/22 06/21/22 06/21/22 02:40 06:35 06:35 WBC 6.30 RBC 3.73 L Hgb 12.2 Hct 37.2 MCV 100 H MCH 32.7 MCHC 32.8 RDW 14.7 H Plt Count 223 MPV 10.2 Immature Gran % 0.5 Neutrophils % 93.3 Lymphocytes % 5.4 Monocytes % 0.6 Eosinophils % 0.0 Basophils % 0.2 Nucleated RBC % 0.0 Absolute Neutrophils 5.88 Absolute Lymphocytes 0.34 L Absolute Monocytes 0.04 L Absolute Eosinophils 0.00 Absolute Basophils 0.01 PT INR APTT ABG Sample Site ABG pH ABG pCO2 ABG pO2 ABG HCO3 ABG Total CO2 ABG O2 Saturation ABG Base Excess VBG pH VBG pCO2 VBG pO2 VBG HCO3 VBG Total CO2 VBG O2 Saturation VBG Base Excess Oxygen Liter Flow FiO2 Sodium 136 Potassium 4.2 Chloride 98 Carbon Dioxide 29.4 Anion Gap 8.6 BUN 59 H Creatinine 2.8 H D Est GFR (CKD-EPI 2020) 16.45 Glucose 152 H Calcium 9.0 Magnesium Total Bilirubin AST ALT Alkaline Phosphatase Troponin I NT-Pro-B Natriuret Pep Total Protein Albumin TSH Free T4 Urine Color Yellow Urine Clarity Clear Urine pH 6.0 Ur Specific [place] 1.020 Urine Protein Negative Urine Ketones Negative Urine Blood Negative Urine Nitrite Negative Urine Bilirubin Negative Urine Urobilinogen 0.2 Ur Leukocyte Esterase Negative Urine Glucose 100 COVID-19 Source SARS-CoV-2 (PCR) 06/21/22 06:35 WBC RBC Hgb Hct MCV MCH MCHC RDW Plt Count MPV Immature Gran % Neutrophils % Lymphocytes % Monocytes % Eosinophils % Basophils % Nucleated RBC % Absolute Neutrophils Absolute Lymphocytes Absolute Monocytes Absolute Eosinophils Absolute Basophils PT 55.3 H INR 6.2 H* APTT ABG Sample Site ABG pH ABG pCO2 ABG pO2 ABG HCO3 ABG Total CO2 ABG O2 Saturation ABG Base Excess VBG pH VBG pCO2 VBG pO2 VBG HCO3 VBG Total CO2 VBG O2 Saturation VBG Base Excess Oxygen Liter Flow FiO2 Sodium Potassium Chloride Carbon Dioxide Anion Gap BUN Creatinine Est GFR (CKD-EPI 2020) Glucose Calcium Magnesium Total Bilirubin AST ALT Alkaline Phosphatase Troponin I NT-Pro-B Natriuret Pep Total Protein Albumin TSH Free T4 Urine Color Urine Clarity Urine pH Ur Specific [place] Urine Protein Urine Ketones Urine Blood Urine Nitrite Urine Bilirubin Urine Urobilinogen Ur Leukocyte Esterase Urine Glucose COVID-19 Source SARS-CoV-2 (PCR)
--- NOTE | 2022-06-21 12:30 | PHACLINREV_ITS ---
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) Acute renal failure (ARF) (Acute) Shortness of breath (Acute) Fatigue (Acute) adhesive Allergy (Severe, Verified 06/04/22 16:16) skin rash, blisters lisinopril Allergy (Intermediate, Verified 06/04/22 16:16) amoxicillin [Amoxicillin] Allergy (Mild, Verified 06/04/22 16:16) TINGLING oxybutynin Allergy (Unknown, Verified 06/04/22 16:16) PT CAN'T REMEMBER Resuscitation Status DNR/DNI Height 5 ft 4 in Weight 110.5 kg - Renal Dosing Renal Dosing: BUN 59 mg/dL (7-18) H 06/21/22 06:35 Creatinine 2.8 mg/dL (0.55-1.02) H D 06/21/22 06:35 Medications needing adjustments: Reviewed (crcl = 19) List of meds needing interventions: famotidine - adjust dose from 40 mg to 10 mg daily - Anticoagulation Anticoagulation: Hgb 12.2 g/dL (11.2-15.7) 06/21/22 06:35 Hct 37.2 % (36.0-46.0) 06/21/22 06:35 Plt Count 223 10^3/uL (130-400) 06/21/22 06:35 INR 6.2 (0.9-1.1) H* 06/21/22 06:35 Creatinine 2.8 mg/dL (0.55-1.02) H D 06/21/22 06:35 DVT Prophylaxis: N/A (on warfarin at home) Therapeutic Anticoagulation: Reviewed Medications: Warfarin (currently held d/t supratherapeutic INR (6.2 today from >8 yesterday - received 2.5 mg PO vit K in ED) - ?transition to DOAC if unable to manage warfarin at home?) - Opiate Usage Evaluate Pain Scale/Pains Meds: N/A - Relevant Labs Sodium 136 mmol/L (136-145) 06/21/22 06:35 Potassium 4.2 mmol/L (3.5-5.1) 06/21/22 06:35 Chloride 98 mmol/L (98-107) 06/21/22 06:35 Magnesium 3.0 mg/dL (1.8-2.4) H 06/20/22 17:45 Electrolytes, C-Reactive P, ESR: Reviewed - DM Control DM Control: Glucose 152 mg/dL (74-106) H 06/21/22 06:35 DM Control: Reviewed - Cardiac Review Cardiac Review: Troponin I < 50 ng/L (<or=60) 06/20/22 17:45 NT-Pro-B Natriuret Pep 2589 pg/mL (<300) H 06/20/22 17:45 BP, HR, EF%: Reviewed - Qtc Review QTc: Reviewed (QTc = 465) - IV to PO Switch IV Medications: Reviewed (solu-medrol for now, switch to prednisone if effecti ve) - Home Meds Home Med List reviewed: Reviewed Relevent Home Meds Not ordered & why?: amiodarone on home med list, probably shouldn't be unless restarted recently (dc'd by Dr. Rajan last admission 06/02/22). Chlorthalidone, furosemide held - ADAM. Removed symbicort and spiriva from med list - these are therapeutic sub for Trelegy which she uses at home. Medication adherence barriers identified?: Considering supratherapeutic INR & ADAM, pt likely has difficulty managing meds on her own ?family involvement ?home health
[2022-06-21] MEDS: Normal Saline Flush 10 ML SYR IVP ×2 (12:40→19:13)
[2022-06-21] MEDS: Budesonide/Formoterol 80/4.5 6.9 GM 60 PUFF INH IH (19:21)
[2022-06-21] MEDS: guaiFENesin/D-METHORPHAN HB 5 ML CUP 10 ML PO (21:55)
[2022-06-21] MEDS: Latanoprost 0.005% 2.5 ML BTL OP (21:59)
[2022-06-21] MEDS: Methocarbamol 500 MG TAB PO (22:31)
[2022-06-22] VITALS (10 sets, daily range): BP systolic 116–153; BP diastolic 56–84; PULSE 72–107; RESP 1–22; TEMP 35.6–36.3; O2SAT 94–98
[2022-06-22] MEDS: Metoprolol 25 MG TAB PO ×4 (02:45→21:43)
[2022-06-22] MEDS: Albuterol/Ipratropium 3 ML UPD VIAL UPD ×4 (02:46→21:42)
[2022-06-22] MEDS: Normal Saline Flush 10 ML SYR IVP ×3 (04:52→20:17)
[2022-06-22] MEDS: methylPREDNISolone SUCC 40 MG VIAL IVP (04:52)
[2022-06-22] MEDS: Levothyroxine 100 MCG TAB PO (04:53)
[2022-06-22] MEDS: Tiotropium Bromide-Respimat 10 PUFF INH 2 PUFF IH (07:59)
[2022-06-22] MEDS: Budesonide/Formoterol 80/4.5 6.9 GM 60 PUFF INH IH ×2 (07:59→20:29)
[2022-06-22] MEDS: Spironolactone 25 MG TAB PO (08:50)
[2022-06-22] MEDS: Benzonatate 200 MG CAP PO ×3 (08:51→20:19)
[2022-06-22] MEDS: Losartan 50 MG TAB PO ×2 (08:51→20:19)
[2022-06-22] MEDS: buPROPion-CR 100 MG TABCR PO ×2 (08:51→20:19)
[2022-06-22] MEDS: Famotidine 20 MG TAB 10 MG PO (08:52)
[2022-06-22] MEDS: Nystatin POWDER 60 GM JAR TP ×3 (08:53→20:29)
[2022-06-22 10:14] LABS: Abs Immature Grans 0.07 10^3/uL (0.0-0.06); Absolute Basophil Count 0.01 10^3/uL (0.0-0.2); Basophils % 0.1; HCT 40.3 % (36.0-46.0); HGB 12.8 g/dL (11.2-15.7); Immature Grans % 0.5; Lymphocytes % 2.7; MCH 32.6 pg (27.0-33.0); MCHC 31.8 % (32.0-36.0); MCV 103 fL (80-95); MPV 10.2 fL (8.0-11.0); Monocytes % 1.9; Neutrophils % 94.8; Platelet Count 239 10^3/uL (130-400); RBC 3.93 10^6/uL (3.93-5.22); RDW 14.7 % (11.7-14.6); RDW-SD 55.8 fL; WBC 13.96 10^3/uL (4.4-10.8)
[2022-06-22 10:19] LABS: Absolute Lymphocyte Count 0.38 10^3/uL (1.2-3.4); Absolute Monocyte Count 0.27 10^3/uL (0.1-0.8); Absolute Neutrophil Count 13.23 10^3/uL (1.2-6.7)
[2022-06-22 10:23] LABS: Anion Gap 4.8 mmol/L (3-11); BUN 45 mg/dL (7-18); CO2 32.2 mmol/L (21.0-32.0); Calcium 9.6 mg/dL (8.5-10.1); Chloride 99 mmol/L (98-107); Estimated GFR 24.64 (mL/min/1.73m2); Glucose 196 mg/dL (74-106); Sodium 136 mmol/L (136-145)
[2022-06-22 10:25] LABS: INR 1.4 (0.9-1.1); Prothrombin Time 13.4 sec (9.3-11.0)
--- NOTE | 2022-06-22 11:09 | W.PM.DS.N ---
Date of service: 06/23/22 Time of Service: 10:00 DS: Diagnosis Discharge Diagnosis (1) Acute renal failure (ARF): Status: Acute Asessment and Plan: resolving with IV fluids will need close follow up outpatient with medication restarted [facility] – [place] pharmacy review conducted and medication reconciliation completed. 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 order placed for but she sees her pcp tomorrow., will defer to them for further management (3) Chronic obstructive lung disease: Asessment and Plan: stable continue steroid taper and inhalers (4) CHF (congestive heart failure): Status: Chronic Asessment and Plan: stable, will be discharged to home on her previous diuretics. labs to be drawn on . home health to assess compliance and med reconciliation as she has had multiple recent changes and there is suspicion that she was not taking medication as directed. (5) AF (paroxysmal atrial fibrillation): Asessment and Plan: stable on beta severiano, anticoagulated on coumadin (6) Hypothyroidism: Asessment and Plan: will resume home dosing. ? compliance with medication home health for medication reconciliation and oversight. discussed with DR Ingram Discharge Plan Disposition Patient Disposition: HOME W/HOME HEALTH SERVICE Condition: Stable Discharge Details Reason For Visit: Acute Renal Failure, Hypoprothrombinemia Admit Date/Time: 06/22/22 18:02 Admit Provider: Isai Alexander Attending Provider: Isai Alexander Primary Care Provider: Ginny Scherer V Hospital Course Hospital Course: see problem list for details. in brief admitted with acute on chronic renal failure, thought d/t over diuresis/medication overage. this resolved with IV fluids and creatinine improved from 4.0 to 1.7. her INR elevated at greater than 8, vit k 2.5 oral given, now down to 1.4 and coumadin has been resumed at 2.5 mg daily, INR ordered for , Jun 26 Her TSH 30, which is double one month ago, ? taking medication properly with multiple system issues. resume home dose and monitor closely, outpatient team to adjust as needed. she is feeling better and is hemodynamically stable. discharged to home with resumption of home health services, medication compliance and oversight essential to ensure proper medication list and dosages. disucssed with Dr Ingram Deeth Meds and New Rx's Prescriptions: Continued tramadol 50 mg tablet 50 mg PO Q4H PRN (Reason: pain) Qty: 28 0RF amiodarone 200 mg tablet 200 mg PO DAILY cholecalciferol (vitamin D3) 25 mcg (1,000 unit) capsule 25 mcg PO DAILY levothyroxine [Levoxyl] 100 MCG tablet 100 mcg PO DAILY latanoprost 2.5 ML drops 1 drp Ophthalmic HS warfarin 2.5 MG tablet 2.5 mg PO DAILY Rx Instructions: 2.5 MG Thursday thru Thursday 1.5mg on Thursday nystatin (bulk) 1 EACH powder 1 ea Miscellaneous DAILY 30 Days Qty: 1 1RF tizanidine 2 mg tablet See Rx Instructions .ROUTE .COMPLEX Qty: 16 0RF Dose Instruction: TAKE 1 TABLET BY MOUTH AT BEDTIME NEEDED FOR MUSCLE SPASTICITY Rx Instructions: TAKE 1 TABLET BY MOUTH AT BEDTIME NEEDED FOR MUSCLE SPASTICITY Trelegy Ellipta 100-62.5-25 mcg Blister With Device 1 inh INHALATION DAILY metoprolol succinate 100 mg Tablet Extended Release 24 Hr 100 mg PO Q12H Qty: 30 0RF chlorthalidone 25 mg Tablet 25 mg PO DAILY Qty: 30 0RF magnesium oxide 400 mg (241.3 mg magnesium) Tablet 400 mg PO BID Qty: 60 0RF torsemide 20 mg Tablet 20 mg PO DAILY Qty: 30 0RF famotidine 20 mg Tablet 20 - 40 mg PO DAILY naproxen 375 mg tablet 375 mg PO BID PRNQty: 60 2RF pramipexole 0.125 mg tablet 0.125 - 0.25 mg PO HS PRN (Reason: Restless Leg(S)) Label Comments: TAKE 1 TO 2 TABLETS BY MOUTH AT BEDTIME IF NEEDED FOR RESTLESS LEGS cyanocobalamin (vitamin B-12) [Vitamin B-12] 1,000 mcg tablet 1,000 mcg PO DAILY Label Comments: TAKE 1 TABLET BY MOUTH ONCE DAILY losartan 100 mg tablet 50 mg PO BID Label Comments: TAKE 1 TABLET BY MOUTH ONCE DAILY methocarbamol 500 mg tablet 500 mg PO Q6H PRN (Reason: muscle spasm) Qty: 14 0RF bupropion HCl 100 mg tablet sustained-release 12 hr 100 mg PO BID Label Comments: TAKE 1 TABLET BY MOUTH TWICE DAILY Discharge Instructions Instructions: Warfarin (By mouth), Dehydration (DC), Acute Kidney Injury (DC) Stand Alone Forms: Nursing Discharge Form Referrals: Ginny Scherer MD [Primary Care Provider] - 06/24/22 1:00 pm (keep scheduled appointment with lab draw prior) Activity:: Activity as Tolerated Equipment/Supplies:: No Equipment Needed Diet:: As Tolerated Discharge Orders Discharge Orders: Discharge Order (Routine); Ordered 06/23/22 Ordered By: Estela Florentino Other Ambulatory Orders: Basic Metabolic Panel (Routine) Timeframe: 20220626 Location: None Selected Ordered By: Estela Florentino Complete Blood Count w/Diff (Routine) Timeframe: 20220626 Location: None Selected Ordered By: Estela Florentino Prothrombin Time (Routine) Timeframe: 20220626 Location: None Selected Ordered By: Estela Florentino Discharge Data Discharge Date/Time-TO BE ENTERED AT DEPARTURE: 06/23/22 10:52 DS: Summary Time Spent with Patient providing and/or coordinating discharge services: Greater than 30 minutes Status at Discharge Functional status at discharge: independent ambulation Overall status at discharge: patient is progressing back to baseline Mental Status: mental status grossly normal Speech and Movement: speech and movement normal Mood: congruent mood Affect: normal affect Exam Const General: no acute distress Orientation: alert HENMT Head: normal to inspection Ears: external ears normal Eyes General: appearance normal, both eyes and all related structures Neck Neck: normal visual inspection Resp Effort & Inspection: normal respiratory effort Auscultation: clear to auscultation bilaterally and diminished lung sounds Cardio Rate: regular rate Skin General skin exam: no rashes or lesions noted and other (chronic discoloration to bilateral lower ) Neuro General: patient alert and patient oriented x3 Extrem General: normal to inspection and no pedal edema Psych Mental Status: mental status grossly normal Speech and Movement: speech and movement normal Mood: congruent mood Affect: normal affect DS: Data Vitals/I&O Vitals and I&O: Vital Signs Temperature 35.8 C L 06/22/22 06:23 Temperature Source Tympanic 06/22/22 06:23 Pulse 86 06/22/22 08:00 Pulse Rhythm Irregular 06/22/22 08:45 Respiratory Rate 16 06/22/22 08:00 Respiratory Effort 06/22/22 08:45 Respiratory Depth Normal 06/22/22 08:45 Respiratory Pattern Normal 06/22/22 08:45 Blood Pressure 132/79 06/22/22 06:23 Blood Pressure Position Sitting 06/20/22 16:11 Pulse Oximetry 96 06/22/22 08:00 Oxygen Delivery Method Room Air 06/22/22 08:00 Oxygen Flow Rate 0 06/22/22 08:00 Pain Level 0 06/22/22 06:23 Comment 06/21/22 19:09 Intake & Output 06/21/22 06/21/22 06/22/22 11:59 23:59 11:59 Intake Total 1000 / 2090 1090 / 2090 Output Total 200 / 200 Balance 800 / 1890 1090 / 1890 Weight 110.5 kg 109.7 kg Intake: IV 1000 / 1010 10 1010 Oral 1080 / 1080 Output: Urine 200 / 200 Other: Urine Color Yellow Yellow Urine Appearance Clear Clear Urine Odor None Normal Normal Comment incontinent of large amount of urine in brief pt washed changed at this time Stool Size Copious Small Stool Characteristics Formed Formed Brown Brown Voiding Methods Diaper Bedside Commode Diaper Incontinent Data Completed and Pending Labs on day of discharge: Labs from last 24 hours 06/22/22 06/22/22 06/22/22 10:05 10:05 10:05 WBC 13.96 H RBC 3.93 Hgb 12.8 Hct 40.3 MCV 103 H MCH 32.6 MCHC 31.8 L RDW 14.7 H Plt Count 239 MPV 10.2 Immature Gran % 0.5 Neutrophils % 94.8 Lymphocytes % 2.7 Monocytes % 1.9 Eosinophils % 0.0 Basophils % 0.1 Nucleated RBC % 0.0 Absolute Neutrophils 13.23 H Absolute Lymphocytes 0.38 L Absolute Monocytes 0.27 Absolute Eosinophils 0.00 Absolute Basophils 0.01 PT 13.4 H INR 1.4 H Sodium 136 Potassium 4.0 Chloride 99 Carbon Dioxide 32.2 H Anion Gap 4.8 BUN 45 H Creatinine 2.0 H Est GFR (CKD-EPI 2020) 24.64 Glucose 196 H Calcium 9.6 PFSH All Active Problems (Updated 06/23/22 @ 09:36 by Estela Florentino NP) Leukocytosis (Acute) Discharge planning issues (Acute) 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) Acute renal failure (ARF) (Acute) Shortness of breath (Acute) Fatigue (Acute) Pulmonary arterial hypertension (Acute) Falls frequently (Acute) Hypomagnesemia (Acute) CHF (congestive heart failure) (Chronic) Status post total right knee replacement (Acute 05/30/20) Abnormal breast finding (Acute 01/19/18) Adenoma of colon (Acute 01/19/18) Bruising (Acute 01/19/18) Chronic depression (Acute 01/19/18) Degenerative arthritis of right knee (Chronic 04/23/15) Disorder of vulva (Acute 01/19/18) Edema leg (Acute 01/19/18) Obesity (Acute 07/11/13) Osteoarthritis (Acute 07/11/13) Other forms of dyspnea (Acute 01/19/18) Overactive bladder (Acute 01/19/18) Primary osteoarthritis of both knees (Chronic 10/29/15) Synvisc injection: 11/04/2019; 05/03/2019 Shortness of breath (Acute 01/19/18) Tendinitis of left shoulder (Acute 01/07/16) Rectal hemorrhage (Acute) Acute on chronic diastolic heart failure (Acute) Chest pain (Acute) Atrial fibrillation (Chronic) SOB (shortness of breath) (Acute) CHF (congestive heart failure) (Chronic) Cough (Acute) Right rotator cuff tendonitis (Acute) Medical History Acute exacerbation of CHF (congestive heart failure) AF (paroxysmal atrial fibrillation) (01/19/18) Cataracts, bilateral Chronic obstructive lung disease (07/11/13) Depression Essential hypertension (07/11/13) H/O adenomatous polyp of colon History of cardioversion Hypertension Hypothyroidism (07/11/13) Morbid obesity Noncompliance with medication regimen Osteoarthritis Tendonitis surgery r arm Surgical History Abdominal hysterectomy H/O colonoscopy x2 H/O: hysterectomy History of carpal tunnel release r wrist Family History Other Heart disease Social History Smoking/Tobacco Use Status: Former Tobacco Use Smoking risk assessment performed?: Yes Alcohol Intake: former Drug use: Never Substance use type: does not use Current gender identity: female Do you feel safe at home: Yes Do you feel safe in your relationship?: Yes Additional Social history: Lives in [place] with Ed who is starting to have cognitive problems. They have financial issues
--- NOTE | 2022-06-22 15:21 | TELEP.MEDR_ITS ---
Date of service: 06/22/22 Time of Service: 15:21 Telepharmacy Home Med Rec Allergies Allergies: adhesive Allergy (Severe, Verified 06/04/22 16:16) skin rash, blisters lisinopril Allergy (Intermediate, Verified 06/04/22 16:16) amoxicillin [Amoxicillin] Allergy (Mild, Verified 06/04/22 16:16) TINGLING oxybutynin Allergy (Unknown, Verified 06/04/22 16:16) PT CAN'T REMEMBER Interview Person Interviewed: patient Quality Quality of Interview/Accuracy of Medication List: Good Sources Sources used to compile medication list: [employer] Medication List, Patient List and [employer] Changes made to Home Medication List: ADDITIONS: none DELETIONS: furosemide, docusate adn spironolactone CHANGES: patient is currently using torsemide instead of furosemide and chlorthalidone isnstead of sprionolactone Additional Notes Additional Notes: patient expressed concern ove having ot manage so many meds adn is looking for a pharmacy that will provide pill pack services Recommended Changes Recommended Changes(reason for recommendation): none Attestation: The home medication list is now updated to the best of my knowledge and is ready to be reconciled by the provider. Please contact the TelePharmacy Medication Reconciliation Pharmacist at for any questions.
--- NOTE | 2022-06-22 17:09 | PDOC.CMDIS ---
- If Service Date Differs Date of service: 06/22/22 Time of Service: 17:09 LACE Index Scoring Tool - Questions: Length of Stay (in days): 2 Acuity (Admit via E.D.?): Yes Comorbidities: Congestive Heart Failure E.D. Visits: 3 - Answers: Total Score: 10 Risk of Readmission: High Risk Care Management Discharge Reason for Hospitalization: Acute Renal Failure, Hypoprothrombinemia. Discharge Plan: Celeste is discharged home with a resumption of Home Health RN and PT services. She will follow up with her PCP and discharge plan of care as prescribed. She is transported home by her via private vehicle. Patient/Family Education Needs: Review of discharge instructions re medications, limitations and follow up plan of care; discuss Ask Me Three and self management.
--- NOTE | 2022-06-22 18:14 | W.PM.PROGNOT ---
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 I&O, daily weights echo Conclusion Mild concentric left ventricular hypertrophy.? Estimated ejection fraction is 40 to 45%.? There is mild global hypokinesis.? The patient is in atrial fibrillation with [id number] variation, fair heart rate control throughout the study Right ventricle was not well visualized Left atrium is mildly dilated.? The right atrium is moderately dilated Trileaflet aortic valve without stenosis or regurgitation Mild mitral regurgitation Mild tricuspid regurgitation.? Estimated right ventricular systolic pressure is 29 mmHg (5) AF (paroxysmal atrial fibrillation): Assessment and plan: Controlled rate with metoprolol to be continued and review whether amiodarone is still on her medication list. This was not ordered upon admission. Patient is a DNR/DNI. (6) Hypothyroidism: Assessment and plan: TSH is elevated but free T4 is only slightly low. Patient may be intermittently taking her medications which could attribute to her presentation with acute renal failure and hypoprothrombinemia. Review compliance. Continue thyroid supplement as per home list for now with adjustment to be done as an outpatient. Qualifiers: Hypothyroidism type: acquired Qualified Code(s): E03.9 - Hypothyroidism, unspecified (7) Discharge planning issues: Status: Acute Assessment and plan: pharmacy review of medication plan to discharge tomorrow with resumption of home health services. discussed with DR Ingram Subjective Subjective Patient reports: no new complaints, feels better, tolerating liquids well, tolerating a regular diet, voiding w/o difficulty and afebrile; denies shortness of breath Exam Const General: no acute distress Orientation: alert HENVA Head: normal to inspection Ears: external ears normal Eyes General: appearance normal, both eyes and all related structures Neck Neck: normal visual inspection Resp Effort & Inspection: normal respiratory effort Auscultation: clear to auscultation bilaterally and diminished lung sounds Cardio Rate: regular rate Skin General skin exam: no rashes or lesions noted and other (chronic discoloration to bilateral lower ) Neuro General: patient alert and patient oriented x3 Extrem General: normal to inspection and no pedal edema Psych Mental Status: mental status grossly normal Objective Last Vital Signs Temp 35.9 C L 06/22/22 15:40 Pulse 86 06/22/22 15:40 Resp 18 06/22/22 15:40 BP 153/82 H 06/22/22 15:40 Pulse Ox 98 06/22/22 15:40 Laboratory Results - last 24 hr 06/22/22 06/22/22 06/22/22 10:05 10:05 10:05 WBC 13.96 H RBC 3.93 Hgb 12.8 Hct 40.3 MCV 103 H MCH 32.6 MCHC 31.8 L RDW 14.7 H Plt Count 239 MPV 10.2 Immature Gran % 0.5 Neutrophils % 94.8 Lymphocytes % 2.7 Monocytes % 1.9 Eosinophils % 0.0 Basophils % 0.1 Nucleated RBC % 0.0 Absolute Neutrophils 13.23 H Absolute Lymphocytes 0.38 L Absolute Monocytes 0.27 Absolute Eosinophils 0.00 Absolute Basophils 0.01 PT 13.4 H INR 1.4 H Sodium 136 Potassium 4.0 Chloride 99 Carbon Dioxide 32.2 H Anion Gap 4.8 BUN 45 H Creatinine 2.0 H Est GFR (CKD-EPI 2020) 24.64 Glucose 196 H Calcium 9.6
[2022-06-22] MEDS: Acetaminophen 325 MG TAB 650 MG PO (20:18)
[2022-06-22] MEDS: Mylanta Suspension 30 ML CUP PO (21:43)
[2022-06-22] MEDS: Latanoprost 0.005% 2.5 ML BTL OP (21:49)
[2022-06-23 02:51] VITALS: BP 147/94; PULSE 120; RESP 18; TEMP 35.7; O2SAT 97
[2022-06-23 02:53] VITALS: RESP 1
[2022-06-23] MEDS: Metoprolol 25 MG TAB PO ×2 (02:53→08:42)
[2022-06-23] MEDS: Albuterol/Ipratropium 3 ML UPD VIAL UPD ×2 (02:53→09:32)
[2022-06-23] MEDS: Levothyroxine 100 MCG TAB PO (05:23)
[2022-06-23 07:03] LABS: Abs Immature Grans 0.05 10^3/uL (0.0-0.06); Absolute Basophil Count 0.01 10^3/uL (0.0-0.2); Absolute Eosinophil Count 0.01 10^3/uL (0.0-0.7); Absolute Monocyte Count 0.91 10^3/uL (0.1-0.8); Basophils % 0.1; Eosinophils % 0.1; HCT 40.4 % (36.0-46.0); HGB 12.9 g/dL (11.2-15.7); Immature Grans % 0.4; MCH 32.8 pg (27.0-33.0); MCHC 31.9 % (32.0-36.0); MCV 103 fL (80-95); MPV 10.1 fL (8.0-11.0); Monocytes % 6.9; Neutrophils % 84.5; Platelet Count 250 10^3/uL (130-400); RBC 3.93 10^6/uL (3.93-5.22); RDW-SD 57.5 fL; WBC 13.19 10^3/uL (4.4-10.8)
[2022-06-23 07:07] LABS: Absolute Lymphocyte Count 1.06 10^3/uL (1.2-3.4); Absolute Neutrophil Count 11.15 10^3/uL (1.2-6.7)
[2022-06-23 07:08] LABS: INR 1.4 (0.9-1.1); Prothrombin Time 13.8 sec (9.3-11.0)
[2022-06-23 07:18] LABS: Anion Gap 1.6 mmol/L (3-11); BUN 43 mg/dL (7-18); CO2 33.4 mmol/L (21.0-32.0); CREATININE 1.7 mg/dL (0.55-1.02); Calcium 9.3 mg/dL (8.5-10.1); Chloride 100 mmol/L (98-107); Estimated GFR 29.94 (mL/min/1.73m2); Glucose 96 mg/dL (74-106); Potassium 4.4 mmol/L (3.5-5.1); Sodium 135 mmol/L (136-145)
[2022-06-23] MEDS: Famotidine 20 MG TAB 10 MG PO (07:46)
[2022-06-23] MEDS: Spironolactone 25 MG TAB PO (07:46)
[2022-06-23] MEDS: predniSONE 20 MG TAB 40 MG PO (07:46)
[2022-06-23] MEDS: Losartan 50 MG TAB PO (07:47)
[2022-06-23] MEDS: Benzonatate 200 MG CAP PO (07:47)
[2022-06-23] MEDS: buPROPion-CR 100 MG TABCR PO (07:47)
[2022-06-23] MEDS: Budesonide/Formoterol 80/4.5 6.9 GM 60 PUFF INH IH (07:57)
[2022-06-23] MEDS: Tiotropium Bromide-Respimat 10 PUFF INH 2 PUFF IH (07:57)
[2022-06-23 08:03] VITALS: O2SAT 96
[2022-06-23 08:32] VITALS: BP 156/77; PULSE 76; RESP 20; TEMP 36.8; O2SAT 95
[2022-06-23] MEDS: Nystatin POWDER 60 GM JAR TP (08:42)
[2022-06-23 09:32] VITALS: PULSE 63; RESP 1; RESP 16; RESP 8; O2SAT 92
[2022-06-23 09:38] VITALS: PULSE 69; RESP 1; RESP 20; RESP 8; O2SAT 99
== END 2022-06-23 10:52 | disposition home health service (06) | DRG 683 ==
LOC: ER 20:23 → MS 21:29
PROVIDERS: Emergency Medicine; Admitting Provider Family Medicine; Emergency Provider Nurse Practitioner Acute Care; PCP Family Medicine; Visit Provider Family Medicine
DX: N17.9 Acute kidney failure, unspecified (principal); D68.4 Acquired coagulation factor deficiency; I50.32 Chronic diastolic (congestive) heart failure; Z68.41 Body mass index [BMI] 40.0-44.9, adult; J44.9 Chronic obstructive pulmonary disease, unspecified; I11.0 Hypertensive heart disease with heart failure; E66.01 Morbid (severe) obesity due to excess calories; E03.9 Hypothyroidism, unspecified; I27.20 Pulmonary hypertension, unspecified; F32.9 Major depressive disorder, single episode, unspecified; N32.81 Overactive bladder; I48.0 Paroxysmal atrial fibrillation; Z79.01 Long term (current) use of anticoagulants; Z96.651 Presence of right artificial knee joint; Z99.81 Dependence on supplemental oxygen; Z91.14 Patient's other noncompliance with medication regimen; E83.42 Hypomagnesemia; E86.0 Dehydration; Z66 Do not resuscitate; T45.515A Adverse effect of anticoagulants, initial encounter; Z87.891 Personal history of nicotine dependence; I89.0 Lymphedema, not elsewhere classified
CPT/HCPCS: 36415; 80048; 80053; 82805; 87635; 93005; 94640; 96374; 99285; 71045; 81003; 83735; 83880; 84439; 84443; 84484; 85025; 85610; 85730; 93010; 99223; 99233; 99239; G0378; J2930; J7512; J7620

== ENCOUNTER 2022-06-26 15:27 | Outpatient (REF) | payer MEDICARE, SELFPAY ==
[2022-06-26 15:43] LABS: Abs Immature Grans 0.08 10^3/uL (0.0-0.06); Absolute Basophil Count 0.03 10^3/uL (0.0-0.2); Absolute Eosinophil Count 0.28 10^3/uL (0.0-0.7); Absolute Lymphocyte Count 1.23 10^3/uL (1.2-3.4); Absolute Monocyte Count 0.59 10^3/uL (0.1-0.8); Absolute Neutrophil Count 6.13 10^3/uL (1.2-6.7); Basophils % 0.4; Eosinophils % 3.4; HCT 42.7 % (36.0-46.0); HGB 13.6 g/dL (11.2-15.7); Lymphocytes % 14.7; MCH 33.1 pg (27.0-33.0); MCHC 31.9 % (32.0-36.0); MCV 104 fL (80-95); MPV 10.8 fL (8.0-11.0); Monocytes % 7.1; Neutrophils % 73.4; Platelet Count 262 10^3/uL (130-400); RBC 4.11 10^6/uL (3.93-5.22); RDW 14.7 % (11.7-14.6); RDW-SD 56.7 fL; WBC 8.34 10^3/uL (4.4-10.8)
[2022-06-26 16:01] LABS: Anion Gap 5.1 mmol/L (3-11); BUN 50 mg/dL (7-18); CO2 30.9 mmol/L (21.0-32.0); Chloride 99 mmol/L (98-107); Estimated GFR 24.64 (mL/min/1.73m2); Glucose 126 mg/dL (74-106); Potassium 4.6 mmol/L (3.5-5.1); Sodium 135 mmol/L (136-145)
== END 2022-06-26 15:28 | disposition home or self-care (01) ==
LOC: LBN 15:27
PROVIDERS: PCP Family Medicine; Visit Provider Nurse Practitioner Acute Care
DX: D68.4 Acquired coagulation factor deficiency (principal)
CPT/HCPCS: 80048; 85025; 85610

== ENCOUNTER 2022-07-03 17:52 | Outpatient (REF) | payer MEDICARE, SELFPAY ==
[2022-07-03 18:35] LABS: Anion Gap 8.5 mmol/L (3-11); BUN 57 mg/dL (7-18); CO2 32.5 mmol/L (21.0-32.0); CREATININE 2.8 mg/dL (0.55-1.02); Calcium 9.3 mg/dL (8.5-10.1); Chloride 98 mmol/L (98-107); Estimated GFR 16.45 (mL/min/1.73m2); Glucose 124 mg/dL (74-106); Potassium 3.9 mmol/L (3.5-5.1); Sodium 139 mmol/L (136-145)
== END 2022-07-03 17:53 | disposition home or self-care (01) ==
LOC: NCHCN 17:52
PROVIDERS: PCP Family Medicine; Visit Provider Family Medicine
DX: I10 Essential (primary) hypertension (principal)
CPT/HCPCS: 80048

== ENCOUNTER 2022-07-07 17:39 | Emergency (ER) | payer MEDICARE, SELFPAY ==
[2022-07-07] VITALS (25 sets, daily range): BP systolic 63–129; BP diastolic 39–92; PULSE 59–122; RESP 16–36; TEMP 36.5; O2SAT 88–100
--- NOTE | 2022-07-07 18:45 | RT.EKG_ITS ---
APPROVED REPORT Exam: Resting ECG Reason for Exam: Dizziness Patient Location: E HR:94 bpm ECG Measurements Heart Rate 94 AXIS NV [id number] P [id number] QRSd 104 QRS 9 QT 379 T 213 QTc 474 Conclusion Atrial fibrillation...? atrial activity Repol abnrm suggests ischemia, diffuse leads...ST-T neg, ant/lat/inf Similar to previous
--- NOTE | 2022-07-07 18:59 | ED.GENADUL_ITS ---
Discharge Plan Disposition Patient Disposition: HOME Condition: Improving Discharge Details Clinical Impression: Dizziness, Acute hypokalemia Primary Care Provider: Ginny Scherer V ED Provider: Mary Ibarra Home Meds and New Rx's Prescriptions: Continued tramadol 50 mg tablet 50 mg PO Q4H PRN (Reason: pain) Qty: 28 0RF amiodarone 200 mg tablet 200 mg PO DAILY cholecalciferol (vitamin D3) 25 mcg (1,000 unit) capsule 25 mcg PO DAILY levothyroxine [Levoxyl] 100 MCG tablet 100 mcg PO DAILY latanoprost 2.5 ML drops 1 drp Ophthalmic HS warfarin 2.5 MG tablet 2.5 mg PO DAILY Rx Instructions: 2.5 MG Thursday thru Thursday 1.5mg on Thursday nystatin (bulk) 1 EACH powder 1 ea Miscellaneous DAILY 30 Days Qty: 1 1RF metoprolol succinate 100 mg Tablet Extended Release 24 Hr 100 mg PO Q12H Qty: 30 0RF chlorthalidone 25 mg Tablet 25 mg PO DAILY Qty: 30 0RF magnesium oxide 400 mg (241.3 mg magnesium) Tablet 400 mg PO BID Qty: 60 0RF torsemide 20 mg Tablet 20 mg PO DAILY Qty: 30 0RF famotidine 20 mg Tablet 20 - 40 mg PO DAILY naproxen 375 mg tablet 375 mg PO BID PRNQty: 60 2RF pramipexole 0.125 mg tablet 0.125 - 0.25 mg PO HS PRN (Reason: Restless Leg(S)) Label Comments: TAKE 1 TO 2 TABLETS BY MOUTH AT BEDTIME IF NEEDED FOR RESTLESS LEGS cyanocobalamin (vitamin B-12) [Vitamin B-12] 1,000 mcg tablet 1,000 mcg PO DAILY Label Comments: TAKE 1 TABLET BY MOUTH ONCE DAILY losartan 100 mg tablet 50 mg PO BID Label Comments: TAKE 1 TABLET BY MOUTH ONCE DAILY methocarbamol 500 mg tablet 500 mg PO Q6H PRN (Reason: muscle spasm) Qty: 14 0RF bupropion HCl 100 mg tablet sustained-release 12 hr 100 mg PO BID Label Comments: TAKE 1 TABLET BY MOUTH TWICE DAILY Discharge Instructions Instructions: Hypokalemia (ED), Dizziness (ED) Additional Instructions: Your potassium was low tonight this may have caused her symptoms. We did replace your potassium with IV supplement and oral. Please discuss this with your primary care provider. Follow up with primary care provider in 3-5 days. Return to ED sooner if any worsening or concerns. Increase oral fluids. Referrals: Ginny Scherer MD [Primary Care Provider] - 3 days Discharge Data Discharge Date/Time-TO BE ENTERED AT DEPARTURE: 07/07/22 23:32 Medical Decision Making 81-year-old female presents to the ER with a chief complaint of dizziness and nausea after taking her medications in the morning. Patient reports that she is on 18 medications and 5 years ago she was on 2 medications. She states that almost daily she gets upset to her stomach after taking her pills and then begins with dizziness. She reports that today she had a worsening dizzy spell and was encouraged by of the home visiting nurse to be seen in urgent care who referred her to the ER for further evaluation. She is alert and oriented x4, she denies any chest pain shortness of breath no abdominal pain. Labs including troponin EKG ordered orthostatic vital signs ordered. Darvin CBC shows no leukocytosis, CMP shows sodium 138 potassium 2.6 which is down from normal reading 4 days ago, carbon dioxide 37.6 anion gap 2.4 BUN 49 creatinine 3.0 which is slightly higher than patient's baseline GFR 15 glucose 114. 20 mEq potassium and chloride IV ordered. Informed by at ED staff that blood pressure sitting is 69/39, supine 83 systolic upon standing blood pressure increases to 128. Patient is symptomatic during orthostatic vital signs. I did instruct staff to move patient to a monitored room. Patient does need to be on the monitor is also getting to be receiving potassium. 2053: Patient's blood pressure is 132 systolic and 128 systolic we will continue to monitor. Unsure of the accuracy of the orthostatic vital signs. Patient has remained hemodynamically stable throughout remainder of stay. Potassium repeat is 3.8, see BMP. PAtient to be discharged with strict follow up and in the care of her . Discussed plan with her and she is in agreement with plan. This documentation was dictated with [employer] dictation system, please disregaard any typos or oddities of phrase. Lab Data Lab results reviewed: Yes I reviewed the patient's lab results. Labs: Laboratory Tests Range/Units 07/07/22 07/07/22 19:30 19:30 WBC (4.4-10.8) 10^3/uL 7.84 RBC (3.93-5.22) 10^6/uL 4.04 Hgb (11.2-15.7) g/dL 13.6 Hct (36.0-46.0) % 42.2 MCV (80-95) fL 105 H MCH (27.0-33.0) pg 33.7 H MCHC (32.0-36.0) % 32.2 RDW (11.7-14.6) % 15.1 H Plt Count (130-400) 10^3/uL 240 MPV (8.0-11.0) fL 10.3 Immature Gran % 0.4 Neutrophils % 78.3 Lymphocytes % 10.8 Monocytes % 7.8 Eosinophils % 1.9 Basophils % 0.8 Nucleated RBC % (0.0-0.3) % 0.0 Absolute Neutrophils (1.2-6.7) 10^3/uL 6.14 Absolute Lymphocytes (1.2-3.4) 10^3/uL 0.85 L Absolute Monocytes (0.1-0.8) 10^3/uL 0.61 Absolute Eosinophils (0.0-0.7) 10^3/uL 0.15 Absolute Basophils (0.0-0.2) 10^3/uL 0.06 Sodium (136-145) mmol/L 138 Potassium (3.5-5.1) mmol/L 2.6 L* Chloride (98-107) mmol/L 98 Carbon Dioxide (21.0-32.0) mmol/L 37.6 H Anion Gap (3-11) mmol/L 2.4 L BUN (7-18) mg/dL 49 H Creatinine (0.55-1.02) mg/dL 3.0 H Est GFR (CKD-EPI 2020) (mL/min/1.73m2) 15.14 Glucose (74-106) mg/dL 114 H Calcium (8.5-10.1) mg/dL 9.9 Magnesium (1.8-2.4) mg/dL 2.4 Total Bilirubin (0.2-1.0) mg/dL 0.8 AST (15-37) U/L 21 ALT (14-59) U/L 24 Alkaline Phosphatase (46-116) U/L 114 Troponin I (<or=60) ng/L < 50 Total Protein (6.4-8.2) g/dL 8.4 H Albumin (3.4-5.0) g/dL 3.2 L HPI General Mode of arrival: wheelchair . Date/Time Provider Initiated Documentation: 07/07/22 17:48 . Limitations to Documentation: no limitations . Information obtained by: patient, RN notes reviewed and old records reviewed . HPI Narrative: 81-year-old female presents to the ER with a chief complaint of dizziness and nausea after taking her medications in the morning. Patient reports that she is on 18 medications and 5 years ago she was on 2 medications. She states that almost daily she gets upset to her stomach after taking her pills and then begins with dizziness. She reports that today she had a worsening dizzy spell and was encouraged by of the home visiting nurse to be seen in urgent care who referred her to the ER for further evaluation. She is alert and oriented x4, she denies any chest pain shortness of breath no abdominal pain. She reports dry heaves but no vomiting. She does have a slightly soft blood pressure upon arrival at 100/44. She does have a past medical history of atrial fibrillation, CHF, pulmonary hypertension, acute renal failure, hypothyroidism.. She does take warfarin. Related Data Home Medications Medication Instructions Recorded Confirmed Levoxyl 100 mcg tablet 100 mcg PO DAILY 07/11/13 07/07/22 (levothyroxine) latanoprost 0.005 % eye drops 1 drp ophthalmic (eye) HS 01/19/18 07/07/22 warfarin 2.5 mg tablet 2.5 mg PO DAILY 01/19/18 07/07/22 nystatin (bulk) 500 million unit 1 ea miscellaneous DAILY 30 days 02/05/18 07/07/22 powder ##1 famotidine 20 mg tablet 20 - 40 mg PO DAILY 05/28/20 07/07/22 cyanocobalamin (vitamin B-12) 1,000 mcg PO DAILY 05/30/20 07/07/22 1,000 mcg tablet (Vitamin B-12) losartan 100 mg tablet 50 mg PO BID 05/30/20 07/07/22 naproxen 375 mg tablet 375 mg PO BID PRN #60 tabs 05/30/20 07/07/22 pramipexole 0.125 mg tablet 0.125 - 0.25 mg PO HS PRN Restless 05/30/20 07/07/22 Leg(S) tramadol 50 mg tablet 50 mg PO Q4H PRN pain #28 tabs 06/11/20 07/07/22 methocarbamol 500 mg tablet 500 mg PO Q6H PRN muscle spasm #14 07/12/20 07/07/22 tabs bupropion HCl 100 mg tablet,12 hr 100 mg PO BID 10/24/21 07/07/22 sustained-release chlorthalidone 25 mg tablet 25 mg PO DAILY #30 tabs 06/03/22 07/07/22 magnesium oxide 400 mg (241.3 mg 400 mg PO BID #60 tabs 06/03/22 07/07/22 magnesium) tablet metoprolol succinate 100 mg 100 mg PO Q12H #30 tabs 06/03/22 07/07/22 tablet,extended release 24 hr torsemide 20 mg tablet 20 mg PO DAILY #30 tabs 06/03/22 07/07/22 amiodarone 200 mg tablet 200 mg PO DAILY 06/04/22 07/07/22 cholecalciferol (vitamin D3) 25 25 mcg PO DAILY 06/04/22 07/07/22 mcg (1,000 unit) capsule Previous Rx's Medication Instructions Recorded nystatin (bulk) 500 million unit 1 ea miscellaneous DAILY 30 days 02/05/18 powder ##1 naproxen 375 mg tablet 375 mg PO BID PRN #60 tabs 05/30/20 tramadol 50 mg tablet 50 mg PO Q4H PRN pain #28 tabs 06/11/20 methocarbamol 500 mg tablet 500 mg PO Q6H PRN muscle spasm #14 07/12/20 tabs chlorthalidone 25 mg tablet 25 mg PO DAILY #30 tabs 06/03/22 magnesium oxide 400 mg (241.3 mg 400 mg PO BID #60 tabs 06/03/22 magnesium) tablet metoprolol succinate 100 mg 100 mg PO Q12H #30 tabs 06/03/22 tablet,extended release 24 hr torsemide 20 mg tablet 20 mg PO DAILY #30 tabs 06/03/22 Allergies Allergy/AdvReac Type Severity Reaction Status Date / Time adhesive Allergy Severe skin rash, Verified 07/07/22 17:46 blisters lisinopril Allergy Intermediate Verified 07/07/22 17:46 amoxicillin [Amoxicillin] Allergy Mild TINGLING Verified 07/07/22 17:46 oxybutynin Allergy Unknown PT CAN'T Verified 07/07/22 17:46 REMEMBER General Stated Complaint: Nausea/Vomit/Diar CECILIA: 3 Review of Systems All systems reviewed & are unremarkable except as noted in HPI and below Constitutional Constitutional: Denies headache(s) ENT Ears, Nose, Mouth, and Throat: Reports dizziness and Denies headache(s) Neurologic Neurologic: Reports as per HPI, Denies confusion, Reports dizziness, Denies headache(s), Denies localized weakness and Denies convulsions Psychiatric Psychiatric: Denies confusion PFSH All Active Problems (Updated 07/07/22 @ 22:59 by Mary Ibarra NP) Dizziness (Acute) Acute hypokalemia (Acute) Leukocytosis (Acute) 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) Acute renal failure (ARF) (Acute) Shortness of breath (Acute) Fatigue (Acute) Pulmonary arterial hypertension (Acute) Falls frequently (Acute) Hypomagnesemia (Acute) CHF (congestive heart failure) (Chronic) Status post total right knee replacement (Acute 05/30/20) Abnormal breast finding (Acute 01/19/18) Adenoma of colon (Acute 01/19/18) Bruising (Acute 01/19/18) Chronic depression (Acute 01/19/18) Degenerative arthritis of right knee (Chronic 04/23/15) Disorder of vulva (Acute 01/19/18) Edema leg (Acute 01/19/18) Obesity (Acute 07/11/13) Osteoarthritis (Acute 07/11/13) Other forms of dyspnea (Acute 01/19/18) Overactive bladder (Acute 01/19/18) Primary osteoarthritis of both knees (Chronic 10/29/15) Synvisc injection: 11/04/2019; 05/03/2019 Shortness of breath (Acute 01/19/18) Tendinitis of left shoulder (Acute 01/07/16) Rectal hemorrhage (Acute) Acute on chronic diastolic heart failure (Acute) Chest pain (Acute) Atrial fibrillation (Chronic) SOB (shortness of breath) (Acute) CHF (congestive heart failure) (Chronic) Cough (Acute) Right rotator cuff tendonitis (Acute) Medical History Acute exacerbation of CHF (congestive heart failure) AF (paroxysmal atrial fibrillation) (01/19/18) Cataracts, bilateral Chronic obstructive lung disease (07/11/13) Depression Essential hypertension (07/11/13) H/O adenomatous polyp of colon History of cardioversion Hypertension Hypothyroidism (07/11/13) Morbid obesity Noncompliance with medication regimen Osteoarthritis Tendonitis surgery r arm Surgical History Abdominal hysterectomy H/O colonoscopy x2 H/O: hysterectomy History of carpal tunnel release r wrist Family History Other Heart disease Social History Smoking/Tobacco Use Status: Former Tobacco Use Smoking risk assessment performed?: Yes Alcohol Intake: former Drug use: Never Substance use type: does not use Current gender identity: female Do you feel safe at home: Yes Do you feel safe in your relationship?: Yes Additional Social history: Lives in [place] with Ed who is starting to have cognitive problems. They have financial issues Exam Narrative Exam Narrative: Constitutional: Alert and oriented x3. Appears stated age. Obese body habitus. Head: Normocephalic, no trauma. Eyes: Pupils PERRL, Red reflex noted, EOM's intact. Eyelids symmetrical without lesions, discharge, or swelling. ENT: Bilateral TM's WNL, External ear normal to inspection, no mastoid TTP, swelling, or erythema, Nasal turbinates WNL, no nasal discharge. Normal dentition, Posterior pharynx WNL, no exudate. Chest: RRR, Normal S1, S2, distal pulses intact. Resp: Lungs clear to auscultation bilaterally, no wheezes, rales, or rhonchi. Abdomen: Soft, non-distended, Normoactive bowel sounds all 4 quads. Musculoskeletal: Unable to assess gait, patient is in a wheelchair Skin: Chronic appearing bilateral lower peripheral vascular disease noted. Non pitting edema noted to bilateral lower extremities capillary refill less than 2 sec. Neurologic: Cranial nerves II-XII intact. Alert and oriented x 3. Motor: No deficits noted. Sensory: Intact bilaterally all 4 extremities. Reflexes: DTR's intact bilaterally.. Hematologic/Lymphatic: No ecchymosis, no lymphadenopathy. Course Vital Signs Vital signs: Vital Signs Temperature 36.5 C 07/07/22 17:43 Pulse 74 07/07/22 17:43 Respiratory Rate 18 07/07/22 17:43 Blood Pressure 100/44 L 07/07/22 17:43 Pulse Oximetry 94 07/07/22 17:43 Temperature 36.5 C 07/07/22 17:43 Temperature Source Temporal Artery Scan 07/07/22 17:43 Pulse 74 07/07/22 17:43 Respiratory Rate 18 07/07/22 17:43 Respiratory Effort Non-Labored 07/07/22 17:48 Blood Pressure 100/44 L 07/07/22 17:43 Pulse Oximetry 94 07/07/22 17:43 Oxygen Delivery Method Room Air 07/07/22 17:43 Oxygen Flow Rate 0 07/07/22 17:43 Pain Level 0 07/07/22 17:43
[2022-07-07 19:35] LABS: Abs Immature Grans 0.03 10^3/uL (0.0-0.06); Absolute Basophil Count 0.06 10^3/uL (0.0-0.2); Absolute Eosinophil Count 0.15 10^3/uL (0.0-0.7); Absolute Lymphocyte Count 0.85 10^3/uL (1.2-3.4); Absolute Monocyte Count 0.61 10^3/uL (0.1-0.8); Absolute Neutrophil Count 6.14 10^3/uL (1.2-6.7); Basophils % 0.8; Eosinophils % 1.9; HCT 42.2 % (36.0-46.0); HGB 13.6 g/dL (11.2-15.7); Immature Grans % 0.4; Lymphocytes % 10.8; MCH 33.7 pg (27.0-33.0); MCHC 32.2 % (32.0-36.0); MCV 105 fL (80-95); MPV 10.3 fL (8.0-11.0); Monocytes % 7.8; Neutrophils % 78.3; Platelet Count 240 10^3/uL (130-400); RBC 4.04 10^6/uL (3.93-5.22); RDW 15.1 % (11.7-14.6); RDW-SD 58.5 fL; WBC 7.84 10^3/uL (4.4-10.8)
[2022-07-07 20:00] LABS: ALT 24 U/L (14-59); AST 21 U/L (15-37); Albumin 3.2 g/dL (3.4-5.0); Alkaline Phosphatase 114 U/L (46-116); Anion Gap 2.4 mmol/L (3-11); BUN 49 mg/dL (7-18); Bilirubin, Total 0.8 mg/dL (0.2-1.0); CO2 37.6 mmol/L (21.0-32.0); Calcium 9.9 mg/dL (8.5-10.1); Chloride 98 mmol/L (98-107); Estimated GFR 15.14 (mL/min/1.73m2); Glucose 114 mg/dL (74-106); Magnesium 2.4 mg/dL (1.8-2.4); Sodium 138 mmol/L (136-145); Total Protein 8.4 g/dL (6.4-8.2); Troponin I < 50 ng/L (<or=60)
[2022-07-07 20:02] LABS: Potassium 2.6 mmol/L (3.5-5.1)
[2022-07-07] MEDS: Normal Saline 1,000 ML 150 ML IV (20:30)
[2022-07-07] MEDS: POTASSIUM CHLORIDE 20 MEQ/100 ML BAG 50 MEQ IVPB (20:30)
[2022-07-07] MEDS: Potassium Chloride Liquid 20 MEQ PKT 40 MEQ PO (21:29)
[2022-07-07 22:50] LABS: Anion Gap 1.7 mmol/L (3-11); BUN 48 mg/dL (7-18); CO2 37.3 mmol/L (21.0-32.0); CREATININE 2.9 mg/dL (0.55-1.02); Calcium 9.3 mg/dL (8.5-10.1); Chloride 100 mmol/L (98-107); Estimated GFR 15.77 (mL/min/1.73m2); Glucose 111 mg/dL (74-106); Potassium 3.8 mmol/L (3.5-5.1); Sodium 139 mmol/L (136-145)
--- NOTE | 2022-07-08 01:10 | NUR.NOTE ---
Ate a sandwich and diet gingerale.Nursing Note:
== END 2022-07-07 23:32 | disposition home or self-care (01) ==
PROVIDERS: Emergency Provider Registered Nurse Emergency; PCP Family Medicine
DX: R42 Dizziness and giddiness (principal); E87.6 Hypokalemia; R11.0 Nausea
CPT/HCPCS: 36415; 80048; 80053; 93005; 96361; 96365; 96366; 99284; 83735; 84484; 85025; 93010; J3480

== ENCOUNTER 2022-07-10 17:18 | Outpatient (REF) | payer MEDICARE, SELFPAY ==
[2022-07-10 20:05] LABS: Anion Gap 7.3 mmol/L (3-11); BUN 32 mg/dL (7-18); CO2 34.7 mmol/L (21.0-32.0); CREATININE 2.2 mg/dL (0.55-1.02); Calcium 9.2 mg/dL (8.5-10.1); Chloride 100 mmol/L (98-107); Estimated GFR 21.97 (mL/min/1.73m2); Folate 14.5 ng/mL (8.6-20.0); Glucose 106 mg/dL (74-106); Potassium 3.1 mmol/L (3.5-5.1); Sodium 142 mmol/L (136-145)
[2022-07-10 20:06] LABS: Vitamin B12 > 2000 pg/mL (193-986)
== END 2022-07-10 17:19 | disposition home or self-care (01) ==
LOC: NCHCN 17:18
PROVIDERS: PCP Family Medicine; Visit Provider Family Medicine
DX: I50.9 Heart failure, unspecified (principal); I10 Essential (primary) hypertension; E53.8 Deficiency of other specified B group vitamins; R71.8 Other abnormality of red blood cells
CPT/HCPCS: 80048; 82607; 82746

== ENCOUNTER 2022-07-21 21:01 | Outpatient (REF) | payer MEDICARE, SELFPAY ==
[2022-07-21 21:35] LABS: Anion Gap 8.4 mmol/L (3-11); BUN 26 mg/dL (7-18); CO2 33.6 mmol/L (21.0-32.0); CREATININE 1.9 mg/dL (0.55-1.02); Calcium 9.3 mg/dL (8.5-10.1); Chloride 104 mmol/L (98-107); Glucose 110 mg/dL (74-106); Magnesium 2.2 mg/dL (1.8-2.4); Potassium 4.1 mmol/L (3.5-5.1); Sodium 146 mmol/L (136-145)
== END 2022-07-21 21:02 | disposition home or self-care (01) ==
LOC: NCHCN 21:01
PROVIDERS: PCP Family Medicine; Visit Provider Family Medicine
DX: E87.6 Hypokalemia (principal)
CPT/HCPCS: 80048; 83735

== ENCOUNTER 2022-07-28 19:04 | Outpatient (REF) | payer MEDICARE, SELFPAY ==
[2022-07-28 20:44] LABS: Anion Gap 8.5 mmol/L (3-11); BUN 29 mg/dL (7-18); CO2 30.5 mmol/L (21.0-32.0); CREATININE 1.9 mg/dL (0.55-1.02); Calcium 8.9 mg/dL (8.5-10.1); Chloride 100 mmol/L (98-107); Glucose 155 mg/dL (74-106); Potassium 3.6 mmol/L (3.5-5.1); Sodium 139 mmol/L (136-145)
== END 2022-07-28 19:05 | disposition home or self-care (01) ==
LOC: NCHCN 19:04
PROVIDERS: PCP Family Medicine; Visit Provider Family Medicine
DX: E83.42 Hypomagnesemia (principal); N18.9 Chronic kidney disease, unspecified
CPT/HCPCS: 80048; 83735

== ENCOUNTER 2022-08-04 17:47 | Outpatient (REF) | payer MEDICARE, SELFPAY ==
[2022-08-04 18:12] LABS: Anion Gap 7.1 mmol/L (3-11); BUN 33 mg/dL (7-18); CO2 33.9 mmol/L (21.0-32.0); CREATININE 2.2 mg/dL (0.55-1.02); Calcium 9.2 mg/dL (8.5-10.1); Chloride 99 mmol/L (98-107); Estimated GFR 21.97 (mL/min/1.73m2); Glucose 143 mg/dL (74-106); Potassium 3.2 mmol/L (3.5-5.1); Sodium 140 mmol/L (136-145)
[2022-08-04 18:40] LABS: Hemoglobin A1C 6.1 % (<5.7)
== END 2022-08-04 17:48 | disposition home or self-care (01) ==
LOC: NCHCN 17:47
PROVIDERS: PCP Family Medicine; Visit Provider Family Medicine
DX: E87.6 Hypokalemia (principal); R73.09 Other abnormal glucose
CPT/HCPCS: 80048; 83036

== ENCOUNTER 2022-08-11 15:13 | Inpatient (IN) | payer MEDICARE, SELFPAY ==
[2022-08-11] VITALS (26 sets, daily range): BP systolic 104–166; BP diastolic 42–81; PULSE 37–73; RESP 15–22; TEMP 35.5–36.7; O2SAT 93–100
--- NOTE | 2022-08-11 15:15 | RT.EKG_ITS ---
APPROVED REPORT Exam: Resting ECG Reason for Exam: Bradycardia Patient Location: E HR:40 bpm ECG Measurements Heart Rate 40 AXIS VA 197 P 52 QRSd 102 QRS 5 QT 557 T [id number] QTc 457 Conclusion Sinus bradycardia...rate< 60 Abnrm T, consider ischemia, anterolateral lds...T <-0.20mV, I aVL V2-V6. Sinus. T wave inversions and 1-2mm ST depression in anterolateral leads. No new ischemic changes. No STEMI. I have reviewed and interpreted ECG and agree with software generated interpretation.
--- NOTE | 2022-08-11 15:30 | DI.RAD_ITS ---
Exam(s) XR PORTABLE CHEST AP EXAM: XR PORTABLE CHEST AP CLINICAL HISTORY: dizziness, bradycardia, r/o acute disease TECHNIQUE: 2D digital imaging was performed. COMPARISON: CR,XR XR PORTABLE CHEST AP from 06/20/2022 FINDINGS: The exam is extremely limited by overlying leads. The heart appears enlarged. The lungs are grossl y clear where visualized. Scarring is noted in the lung apices. IMPRESSION: No acute findings. DATA REPOSITORY: RADIATION DOSE DELIVERED:
--- NOTE | 2022-08-11 15:35 | ED.GENADUL_ITS ---
Discharge Plan Disposition Patient Disposition: Admit to [facility] Condition: Stable Discharge Details Clinical Impression: Symptomatic bradycardia, Dizziness Admit Date/Time: 08/11/22 16:56 Admit Provider: Michael Ingram Attending Provider: Michael Ingram Primary Care Provider: Ginny Scherer V ED Provider: Yasmin Villeda Discharge Data Discharge Date/Time-TO BE ENTERED AT DEPARTURE: 08/11/22 18:18 Medical Decision Making 81-year-old female with a history of morbid obesity, hypertension, hyperlipidemia, CHF, COPD, paroxysmal atrial fibrillation on warfarin presents for bradycardia with heart rate in the 40s and dizziness per home health. Heart rate in 40s on arrival. Blood pressure within normal limits. Patient appears comfortable and nontoxic. She is oriented x3. Review of her medications note that she is on metoprolol 100 mg p.o. twice daily. She is also on losartan, chlorthalidone, amiodarone and Coumadin, among other noncardiac meds. She last took her warfarin last night and last dose of metoprolol this morning. Pacer pads placed. We will obtain a cardiac work-up, chest x-ray and continue to monitor. Labs and imaging reviewed and unremarkable for acute findings normal white blood cell count. INR therapeutic at 2.5. Creatinine at baseline at 2.1. Troponin negative. BNP minimally elevated at 715. Chest x-ray negative. Patient's heart rate has mostly been in the low to mid 40s. She occasionally has had a dip down around 38. Will admit for continued telemetry monitoring with medication adjustment. Case discussed with hospitalist who accepts patient for admission. Request cardiology consult to make them aware that patient may need a pacemaker at some point. Case d/w [facility] cardiology -- recommends titrating down metoprolol and a Zio patch upon discharge. If patient remains persistently bradycardic while titrating metoprolol, may consider referral to cardiology for discussion regarding a pacemaker. Medical Records Medical records reviewed: Yes I reviewed the patient's medical records. Imaging Data Radiologic Study: Radiologist's impression: XR PORTABLE CHEST AP CLINICAL HISTORY:? dizziness, bradycardia, r/o acute disease TECHNIQUE:? 2D digital imaging was performed. COMPARISON:? CR,XR XR PORTABLE CHEST AP from 06/20/2022 FINDINGS: ?The exam is extremely limited by overlying leads.? The heart appears enlarged.? The lungs are grossly clear where visualized.? Scarring is noted in the lung apices. IMPRESSION: No acute? findings. Lab Data Lab results reviewed: Yes I reviewed the patient's lab results. Labs: Laboratory Tests Range/Units 08/11/22 08/11/22 08/11/22 15:50 15:50 15:50 WBC (4.4-10.8) 10^3/uL 6.65 RBC (3.93-5.22) 10^6/uL 3.35 L Hgb (11.2-15.7) g/dL 11.6 Hct (36.0-46.0) % 35.1 L MCV (80-95) fL 105 H MCH (27.0-33.0) pg 34.6 H MCHC (32.0-36.0) % 33.0 RDW (11.7-14.6) % 15.2 H Plt Count (130-400) 10^3/uL 250 MPV (8.0-11.0) fL 10.2 Immature Gran % 0.3 Neutrophils % 69.6 Lymphocytes % 13.8 Monocytes % 12.2 Eosinophils % 3.3 Basophils % 0.8 Nucleated RBC % (0.0-0.3) % 0.0 Absolute Neutrophils (1.2-6.7) 10^3/uL 4.63 Absolute Lymphocytes (1.2-3.4) 10^3/uL 0.92 L Absolute Monocytes (0.1-0.8) 10^3/uL 0.81 H Absolute Eosinophils (0.0-0.7) 10^3/uL 0.22 Absolute Basophils (0.0-0.2) 10^3/uL 0.05 PT Cancelled INR Cancelled APTT Cancelled Sodium (136-145) mmol/L 137 Potassium (3.5-5.1) mmol/L 3.5 Chloride (98-107) mmol/L 97 L Carbon Dioxide (21.0-32.0) mmol/L 36.9 H Anion Gap (3-11) mmol/L 3.1 BUN (7-18) mg/dL 41 H Creatinine (0.55-1.02) mg/dL 2.1 H Est GFR (CKD-EPI 2020) (mL/min/1.73m2) 23.23 Glucose (74-106) mg/dL 108 H Calcium (8.5-10.1) mg/dL 9.2 Magnesium (1.8-2.4) mg/dL 2.4 Total Bilirubin (0.2-1.0) mg/dL 0.6 AST (15-37) U/L 31 ALT (14-59) U/L 16 Alkaline Phosphatase (46-116) U/L 111 Troponin I (<or=60) ng/L < 50 NT-Pro-B Natriuret Pep (<300) pg/mL 715 H Total Protein (6.4-8.2) g/dL 7.7 Albumin (3.4-5.0) g/dL 2.7 L Range/Units 08/11/22 08/11/22 15:50 16:09 WBC (4.4-10.8) 10^3/uL RBC (3.93-5.22) 10^6/uL Hgb (11.2-15.7) g/dL Hct (36.0-46.0) % MCV (80-95) fL MCH (27.0-33.0) pg MCHC (32.0-36.0) % RDW (11.7-14.6) % Plt Count (130-400) 10^3/uL MPV (8.0-11.0) fL Immature Gran % Neutrophils % Lymphocytes % Monocytes % Eosinophils % Basophils % Nucleated RBC % (0.0-0.3) % Absolute Neutrophils (1.2-6.7) 10^3/uL Absolute Lymphocytes (1.2-3.4) 10^3/uL Absolute Monocytes (0.1-0.8) 10^3/uL Absolute Eosinophils (0.0-0.7) 10^3/uL Absolute Basophils (0.0-0.2) 10^3/uL PT 24.2 H INR 2.5 H APTT 33.4 H Sodium (136-145) mmol/L Potassium (3.5-5.1) mmol/L Chloride (98-107) mmol/L Carbon Dioxide (21.0-32.0) mmol/L Anion Gap (3-11) mmol/L BUN (7-18) mg/dL Creatinine (0.55-1.02) mg/dL Est GFR (CKD-EPI 2020) (mL/min/1.73m2) Glucose (74-106) mg/dL Calcium (8.5-10.1) mg/dL Magnesium (1.8-2.4) mg/dL Total Bilirubin (0.2-1.0) mg/dL AST (15-37) U/L ALT (14-59) U/L Alkaline Phosphatase (46-116) U/L Troponin I (<or=60) ng/L NT-Pro-B Natriuret Pep (<300) pg/mL Cancelled Total Protein (6.4-8.2) g/dL Albumin (3.4-5.0) g/dL ECG Data Attestation: I personally reviewed and interpreted this ECG (s) as follows: Interpretation: rate of 40, sinus, T wave inversions and 1-2mm ST depressions in anterolateral leads, seen in previous EKG, no acute ischemic findings. Sign Out No HPI General Mode of arrival: EMS . Date/Time Provider Initiated Documentation: 08/11/22 15:26 . Limitations to Documentation: no limitations . Information obtained by: patient . HPI Narrative: Patient is an 81-year-old female with a history of hypertension, hyperlipidemia, morbid obesity, CHF, COPD, paroxysmal atrial fibrillation on warfarin presents after sent by home health for bradycardia with heart rate in the 40s and dizziness. Patient states she has chronic dizziness but states today it was worse than usual. She states she often has dizziness when she is up and walking around. Patient states when she went to stand up from the bed today she had significant lightheadedness that caused her to sit back down. She denies any spinning sensation. She states she took her warfarin last night and her dose of 100 mg of metoprolol this morning. She denies fever, chest pain, shortness of breath, vomiting, abdominal pain. Related Data Home Medications Medication Instructions Recorded Confirmed Levoxyl 100 mcg tablet 100 mcg PO DAILY 07/11/13 08/11/22 (levothyroxine) latanoprost 0.005 % eye drops 1 drp ophthalmic (eye) HS 01/19/18 08/11/22 warfarin 2.5 mg tablet 2.5 mg PO DAILY 01/19/18 08/12/22 nystatin (bulk) 500 million unit 1 ea miscellaneous DAILY 30 days 02/05/18 08/11/22 powder ##1 famotidine 20 mg tablet 20 - 40 mg PO DAILY 05/28/20 08/11/22 cyanocobalamin (vitamin B-12) 1,000 mcg PO DAILY 05/30/20 08/11/22 1,000 mcg tablet (Vitamin B-12) naproxen 375 mg tablet 375 mg PO BID PRN #60 tabs 05/30/20 08/11/22 pramipexole 0.125 mg tablet 0.125 - 0.25 mg PO HS PRN Restless 05/30/20 08/11/22 Leg(S) methocarbamol 500 mg tablet 500 mg PO Q6H PRN muscle spasm #14 07/12/20 08/11/22 tabs bupropion HCl 100 mg tablet,12 hr 100 mg PO BID 10/24/21 08/11/22 sustained-release chlorthalidone 25 mg tablet 25 mg PO DAILY #30 tabs 06/03/22 08/11/22 magnesium oxide 400 mg (241.3 mg 400 mg PO BID #60 tabs 06/03/22 08/11/22 magnesium) tablet metoprolol succinate 100 mg 100 mg PO Q12H #30 tabs 06/03/22 08/11/22 tablet,extended release 24 hr torsemide 20 mg tablet 20 mg PO DAILY #30 tabs 06/03/22 08/11/22 amiodarone 200 mg tablet 200 mg PO DAILY 06/04/22 08/11/22 cholecalciferol (vitamin D3) 25 25 mcg PO DAILY 06/04/22 08/11/22 mcg (1,000 unit) capsule fluticasone fur. 100 mcg-umeclid 1 inh inhalation DAILY 08/12/22 08/12/22 62.5 mcg-vilant 25 mcg inhalat.powder (Trelegy Ellipta) losartan 50 mg tablet 25 mg PO BID 08/12/22 08/12/22 Previous Rx's Medication Instructions Recorded nystatin (bulk) 500 million unit 1 ea miscellaneous DAILY 30 days 02/05/18 powder ##1 naproxen 375 mg tablet 375 mg PO BID PRN #60 tabs 05/30/20 methocarbamol 500 mg tablet 500 mg PO Q6H PRN muscle spasm #14 07/12/20 tabs chlorthalidone 25 mg tablet 25 mg PO DAILY #30 tabs 06/03/22 magnesium oxide 400 mg (241.3 mg 400 mg PO BID #60 tabs 06/03/22 magnesium) tablet metoprolol succinate 100 mg 100 mg PO Q12H #30 tabs 06/03/22 tablet,extended release 24 hr torsemide 20 mg tablet 20 mg PO DAILY #30 tabs 06/03/22 Allergies Allergy/AdvReac Type Severity Reaction Status Date / Time adhesive Allergy Severe skin rash, Verified 08/11/22 15:59 blisters lisinopril Allergy Intermediate Verified 08/11/22 15:59 amoxicillin [Amoxicillin] Allergy Mild TINGLING Verified 08/11/22 15:59 oxybutynin Allergy Unknown PT CAN'T Verified 08/11/22 15:59 REMEMBER General Stated Complaint: Dizzy/Sync CECILIA: 3 Review of Systems All systems reviewed & are unremarkable except as noted in HPI and below Constitutional Constitutional: Reports as per HPI, Denies chills and Denies fever(s) Eyes Eyes: Denies blurry vision ENT Ears, Nose, Mouth, and Throat: Reports dizziness, Denies sore throat and Denies throat swelling Cardiovascular Cardiovascular: Denies chest pain and Denies dyspnea Respiratory Respiratory: Denies cough and Denies dyspnea Gastrointestinal Gastrointestinal: Denies abdominal pain, Denies diarrhea and Denies vomiting Genitourinary Genitourinary: Denies hematuria and Denies dysuria Musculoskeletal Musculoskeletal: Denies back pain and Denies numbness Integumentary/Breasts Skin/Breast: Denies lesions and Denies rash Neurologic Neurologic: Reports dizziness, Denies localized weakness and Denies numbness Allergic/Immunologic Allergic/Immunologic: Denies throat swelling PFSH All Active Problems (Updated 08/11/22 @ 21:46 by Yasmin Villeda DO) Symptomatic bradycardia (Acute) Dizziness (Acute) Chronic kidney disease (Chronic) Heart failure with reduced ejection fraction (Acute) Sinus bradycardia (Acute) Leukocytosis (Acute) 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) Acute renal failure (ARF) (Acute) Shortness of breath (Acute) Fatigue (Acute) Pulmonary arterial hypertension (Acute) Falls frequently (Acute) Hypomagnesemia (Acute) CHF (congestive heart failure) (Chronic) Status post total right knee replacement (Acute 05/30/20) Abnormal breast finding (Acute 01/19/18) Adenoma of colon (Acute 01/19/18) Bruising (Acute 01/19/18) Chronic depression (Acute 01/19/18) Degenerative arthritis of right knee (Chronic 04/23/15) Disorder of vulva (Acute 01/19/18) Edema leg (Acute 01/19/18) Obesity (Acute 07/11/13) Osteoarthritis (Acute 07/11/13) Other forms of dyspnea (Acute 01/19/18) Overactive bladder (Acute 01/19/18) Primary osteoarthritis of both knees (Chronic 10/29/15) Synvisc injection: 11/04/2019; 05/03/2019 Shortness of breath (Acute 01/19/18) Tendinitis of left shoulder (Acute 01/07/16) Rectal hemorrhage (Acute) Acute on chronic diastolic heart failure (Acute) Chest pain (Acute) Atrial fibrillation (Chronic) SOB (shortness of breath) (Acute) CHF (congestive heart failure) (Chronic) Cough (Acute) Right rotator cuff tendonitis (Acute) Medical History Acute exacerbation of CHF (congestive heart failure) AF (paroxysmal atrial fibrillation) (01/19/18) Cataracts, bilateral Chronic obstructive lung disease (07/11/13) Depression Essential hypertension (07/11/13) H/O adenomatous polyp of colon History of cardioversion Hypertension Hypothyroidism (07/11/13) Morbid obesity Noncompliance with medication regimen Osteoarthritis Tendonitis surgery r arm Surgical History Abdominal hysterectomy H/O colonoscopy x2 H/O: hysterectomy History of carpal tunnel release r wrist Family History Other Heart disease Social History Smoking/Tobacco Use Status: Former Tobacco Use Smoking risk assessment performed?: Yes Alcohol Intake: former Drug use: Never Substance use type: does not use Current gender identity: female Do you feel safe at home: Yes Do you feel safe in your relationship?: Yes Additional Social history: Lives in [place] with Ed who is starting to have cognitive problems. They have financial issues Exam Const General: cooperative and no acute distress Orientation: alert, awake and oriented x3 HENMT Head: normal to inspection Face and sinus: normal facial exam Eyes General: appearance normal, both eyes and all related structures Pupils: PERRL EOM: EOM intact bilaterally Neck Neck: normal visual inspection and No submandibular swelling Lymphatic: no lymphadenopathy noted Chest Chest: normal inspection of the chest and no tenderness Resp Effort & Inspection: normal respiratory effort and able to speak in complete sentences Auscultation: clear to auscultation bilaterally Cardio Rate: bradycardic Rhythm: regular rhythm GI Inspection: normal to inspection Palpation: soft, not firm, not rigid and nontender Auscultation: hypoactive bowel sounds Back/Spine/Pelvis Thoracic/Lumbar Spine: thoracic and lumbar spine normal to inspection Pelvis: no pain with anterior-posterior compression Skin General skin exam: no rashes or lesions noted Neuro General: patient alert, patient awake and patient oriented x3 Cognition: normal cognition Speech: speech normal Motor: muscle tone normal throughout Sensory Exam: no sensory deficits noted Extrem General: normal to inspection, full ROM, capillary refill normal, no calf tenderness bilaterally and edema Laterality: bilateral (1+ pitting edema b/l lower legs) Psych Appearance: grossly normal Mental Status: mental status grossly normal Speech and Movement: speech and movement normal Affect: normal affect Course Vital Signs Vital signs: Vital Signs Pulse 40 L 08/11/22 15:26 Respiratory Rate 18 08/11/22 15:26 Blood Pressure 142/80 H 08/11/22 15:26 Pulse Oximetry 100 08/11/22 15:26 Pulse 40 L 08/11/22 15:26 Respiratory Rate 18 08/11/22 15:26 Blood Pressure 142/80 H 08/11/22 15:26 Pulse Oximetry 100 08/11/22 15:26 Oxygen Delivery Method Nasal Cannula 08/11/22 15:26 Oxygen Flow Rate 0 08/11/22 15:26
[2022-08-11 15:59] LABS: Abs Immature Grans 0.02 10^3/uL (0.0-0.06); Absolute Basophil Count 0.05 10^3/uL (0.0-0.2); Absolute Eosinophil Count 0.22 10^3/uL (0.0-0.7); Absolute Lymphocyte Count 0.92 10^3/uL (1.2-3.4); Absolute Monocyte Count 0.81 10^3/uL (0.1-0.8); Absolute Neutrophil Count 4.63 10^3/uL (1.2-6.7); Basophils % 0.8; Eosinophils % 3.3; HCT 35.1 % (36.0-46.0); HGB 11.6 g/dL (11.2-15.7); Immature Grans % 0.3; Lymphocytes % 13.8; MCH 34.6 pg (27.0-33.0); MCV 105 fL (80-95); MPV 10.2 fL (8.0-11.0); Monocytes % 12.2; Neutrophils % 69.6; Platelet Count 250 10^3/uL (130-400); RBC 3.35 10^6/uL (3.93-5.22); RDW 15.2 % (11.7-14.6); RDW-SD 59.1 fL; WBC 6.65 10^3/uL (4.4-10.8)
[2022-08-11 16:21] LABS: ALT 16 U/L (14-59); AST 31 U/L (15-37); Albumin 2.7 g/dL (3.4-5.0); Alkaline Phosphatase 111 U/L (46-116); Anion Gap 3.1 mmol/L (3-11); BUN 41 mg/dL (7-18); Bilirubin, Total 0.6 mg/dL (0.2-1.0); CO2 36.9 mmol/L (21.0-32.0); CREATININE 2.1 mg/dL (0.55-1.02); Calcium 9.2 mg/dL (8.5-10.1); Chloride 97 mmol/L (98-107); Estimated GFR 23.23 (mL/min/1.73m2); Glucose 108 mg/dL (74-106); Magnesium 2.4 mg/dL (1.8-2.4); NT-proBNP 715 pg/mL (<300); Potassium 3.5 mmol/L (3.5-5.1); Sodium 137 mmol/L (136-145); Total Protein 7.7 g/dL (6.4-8.2); Troponin I < 50 ng/L (<or=60)
[2022-08-11 16:30] LABS: PTT Activated 33.4 sec (21.0-27.5); Prothrombin Time 24.2 sec (9.3-11.0)
[2022-08-11 16:31] LABS: INR 2.5 (0.9-1.1)
--- NOTE | 2022-08-11 17:42 | HPE_ITS ---
Date of service: 08/11/22 Time of Service: 17:42 Assessment and Plan Assessment and plan (1) Sinus bradycardia: Status: Acute Assessment and plan: Patient presents with symptomatic sinus bradycardia. She is not exhibiting any advanced heart block. She has a known history of hypothyroidism and chronically take sleeve of thyroxine 100 mcg daily. Of note patient's last TSH was elevated at 30.2 as of June 20, 2022 it appears that he been progressively increasing since the summer. TSH was not checked on her admission labs. I will order stat TSH and if her TSH is significantly elevated further she should be treated emergently for impending myxedema. Otherwise if her TSH is within acceptable range we will continue her current dose of levothyroxine. For now we will withhold her amiodarone and her Toprol-XL and weight for her heart rate to improve. Patient should be referred to EP cardiology for placement of a pacemaker. Professional time spent interviewing and examining patient, discussion of goals of care with hospital team (care management, nursing and consulting professionals) was 60 minutes. (2) AF (paroxysmal atrial fibrillation): Assessment and plan: Patient has paroxysmal atrial fibrillation is currently in sinus bradycardia. INR is therapeutic we will continue her current warfarin dose and monitor daily INR levels. (3) Hypothyroidism: Assessment and plan: As noted above under plan for sinus bradycardia recheck her TSH and if signif icantly elevated will acutely treat her. If her TSH is in acceptable levels then we will continue current dose of levothyroxine. Qualifiers: Hypothyroidism type: acquired Qualified Code(s): E03.9 - Hypothyroidism, unspecified (4) Heart failure with reduced ejection fraction: Status: Acute Assessment and plan: As the patient is symptomatic from the bradycardia and has orthostatic symptoms we will hold her diuretics and her losartan for tonight. (5) Chronic kidney disease: Status: Chronic Assessment and plan: Recheck herPatient's BUN is climbing suggesting that she may be a little on the dry side. Diuretics are being withheld and repeat BMP in the morning. (6) Chronic obstructive lung disease: Assessment and plan: No acute exacerbation. her dyspnea is secondary to her bradycardia. Patient uses home oxygen at 2 LPM. she does not appear to be on any routine bronchodilators and she is not having any wheezing therefore I did not prescirbe any prn bronchodilators. Qualifiers: COPD type: unspecified COPD Qualified Code(s): J44.9 - Chronic obstructive pulmonary disease, unspecified History of Present Illness History of Present Illness Chief Complaint: dizziness, bradycardia Narrative: 81-year-old female with history of paroxysmal atrial fibrillation, controlled with amiodarone and Toprol-XL and anticoagulated with warfarin, who also has comorbidities including COPD as well as heart failure with reduced ejection fraction, LVEF 45 to 50% who was sent to the emergency department via EMS after home health found her to be bradycardic with heart rate in the 30s. Patient's been symptomatic from this including lightheadedness and fatigue but no associated syncope, or chest pain. She has chronic exertional dyspnea. Evaluation in the emergency department included routine labs including CBC, CMP, proBNP, troponin I level as well as an INR, EKG and chest x-ray. CMP demonstrated chronic renal insufficiency with a BUN of 41 creatinine 2.1 which is slightly increased over her previous values of 33 and 2.2 however her baseline appears to be a BUN of 29 and creatinine 1.9. Potassium level is normal at 3.5. Her CO2 is chronically elevated at 36.9. LFTs are normal. Troponin I was less than 50 and proBNP was elevated at 715 which is well below her last level in June when she was elevated at 2500. EKG was obtained and demonstrated sinus bradycardia rate of 40 bpm with diffuse T wave inversions across the precordial leads. There was no evidence for advanced heart block. VT intervals normal at 197 ms. QTc was 457 ms. Chest 2 Views showed cardiomegaly but otherwise clear lung dubois. Pacer pads were placed on the patient in the emergency department but she never required external pacing. Patient is being admitted to the medical/surgical floor for continued telemetry monitoring and allow washout of her AV bryosn medications. Her amiodarone and her metoprolol will be placed on hold. I discussed with Dr. Villeda, emergency department attending, as well as with the patient that the patient probably needs to be referred for permanent pacemaker in order to allow her body to be able to accept the AV bryson blocking medications to control her atrial fibrillation rate. An alternative would be for her to undergo ablation therapy and permanent pacing. Review of Systems Constitutional Constitutional: Denies chills, Reports fatigue and Reports lethargy Eyes Eyes: Reports system reviewed and no additional complaints, except as documented ENT Ears, Nose, Mouth, and Throat: Reports system reviewed and no additional complaints, except as documented Cardiovascular Cardiovascular: Reports as per HPI, Denies chest pain, Denies leg edema, Reports lightheadedness, Denies radiating jaw, neck or arm pain, Denies palpitations, Reports dyspnea on exertion and Reports slow heart rate Respiratory Respiratory: Denies chest congestion, Denies cough and Reports dyspnea on exertion Gastrointestinal Gastrointestinal: Reports system reviewed and no additional complaints, except as documented Genitourinary Genitourinary: Reports system reviewed and no additional complaints, except as documented Musculoskeletal Musculoskeletal: Reports system reviewed and no additional complaints, except as documented Integumentary/Breasts Skin/Breast: Reports system reviewed and no additional complaints, except as documented Neurologic Neurologic: Reports system reviewed and no additional complaints, except as documented Endocrine Endocrine: Reports fatigue and Denies palpitations Hematologic/Lymphatic Hematologic/Lymphatic: Reports easy bruising Allergic/Immunologic Allergic/Immunologic: Reports system reviewed and no additional complaints, except as documented PFSH All Active Problems (Updated 08/11/22 @ 18:33 by Michael Ingram MD) Chronic kidney disease (Chronic) Heart failure with reduced ejection fraction (Acute) Sinus bradycardia (Acute) Leukocytosis (Acute) 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) Acute renal failure (ARF) (Acute) Shortness of breath (Acute) Fatigue (Acute) Pulmonary arterial hypertension (Acute) Falls frequently (Acute) Hypomagnesemia (Acute) CHF (congestive heart failure) (Chronic) Status post total right knee replacement (Acute 05/30/20) Abnormal breast finding (Acute 01/19/18) Adenoma of colon (Acute 01/19/18) Bruising (Acute 01/19/18) Chronic depression (Acute 01/19/18) Degenerative arthritis of right knee (Chronic 04/23/15) Disorder of vulva (Acute 01/19/18) Edema leg (Acute 01/19/18) Obesity (Acute 07/11/13) Osteoarthritis (Acute 07/11/13) Other forms of dyspnea (Acute 01/19/18) Overactive bladder (Acute 01/19/18) Primary osteoarthritis of both knees (Chronic 10/29/15) Synvisc injection: 11/04/2019; 05/03/2019 Shortness of breath (Acute 01/19/18) Tendinitis of left shoulder (Acute 01/07/16) Rectal hemorrhage (Acute) Acute on chronic diastolic heart failure (Acute) Chest pain (Acute) Atrial fibrillation (Chronic) SOB (shortness of breath) (Acute) CHF (congestive heart failure) (Chronic) Cough (Acute) Right rotator cuff tendonitis (Acute) Medical History Acute exacerbation of CHF (congestive heart failure) AF (paroxysmal atrial fibrillation) (01/19/18) Cataracts, bilateral Chronic obstructive lung disease (07/11/13) Depression Essential hypertension (07/11/13) H/O adenomatous polyp of colon History of cardioversion Hypertension Hypothyroidism (07/11/13) Morbid obesity Noncompliance with medication regimen Osteoarthritis Tendonitis surgery r arm Surgical History Abdominal hysterectomy H/O colonoscopy x2 H/O: hysterectomy History of carpal tunnel release r wrist Family History Other Heart disease Social History Smoking/Tobacco Use Status: Former Tobacco Use Smoking risk assessment performed?: Yes Alcohol Intake: former Drug use: Never Substance use type: does not use Current gender identity: female Do you feel safe at home: Yes Do you feel safe in your relationship?: Yes Additional Social history: Lives in [place] with Ed who is starting to have cognitive problems. They have financial issues Meds Allergies and Home Medications Allergies Allergy/AdvReac Type Severity Reaction Status Date / Time adhesive Allergy Severe skin rash, Verified 08/11/22 15:59 blisters lisinopril Allergy Intermediate Verified 08/11/22 15:59 amoxicillin [Amoxicillin] Allergy Mild TINGLING Verified 08/11/22 15:59 oxybutynin Allergy Unknown PT CAN'T Verified 08/11/22 15:59 REMEMBER Home Medications Medication Instructions Recorded Confirmed Type Levoxyl 100 mcg tablet 100 mcg PO DAILY 07/11/13 08/11/22 History (levothyroxine) latanoprost 0.005 % eye drops 1 drp ophthalmic (eye) HS 01/19/18 08/11/22 History warfarin 2.5 mg tablet 2.5 mg PO DAILY 01/19/18 08/11/22 History nystatin (bulk) 500 million unit 1 ea miscellaneous DAILY 30 days 02/05/18 08/11/22 Rx powder ##1 famotidine 20 mg tablet 20 - 40 mg PO DAILY 05/28/20 08/11/22 History cyanocobalamin (vitamin B-12) 1,000 mcg PO DAILY 05/30/20 08/11/22 History 1,000 mcg tablet (Vitamin B-12) losartan 100 mg tablet 50 mg PO BID 05/30/20 08/11/22 History naproxen 375 mg tablet 375 mg PO BID PRN #60 tabs 05/30/20 08/11/22 Rx pramipexole 0.125 mg tablet 0.125 - 0.25 mg PO HS PRN Restless 05/30/20 08/11/22 History Leg(S) methocarbamol 500 mg tablet 500 mg PO Q6H PRN muscle spasm #14 07/12/20 08/11/22 Rx tabs bupropion HCl 100 mg tablet,12 hr 100 mg PO BID 10/24/21 08/11/22 History sustained-release chlorthalidone 25 mg tablet 25 mg PO DAILY #30 tabs 06/03/22 08/11/22 Rx magnesium oxide 400 mg (241.3 mg 400 mg PO BID #60 tabs 06/03/22 08/11/22 Rx magnesium) tablet metoprolol succinate 100 mg 100 mg PO Q12H #30 tabs 06/03/22 08/11/22 Rx tablet,extended release 24 hr torsemide 20 mg tablet 20 mg PO DAILY #30 tabs 06/03/22 08/11/22 Rx amiodarone 200 mg tablet 200 mg PO DAILY 06/04/22 08/11/22 History cholecalciferol (vitamin D3) 25 25 mcg PO DAILY 06/04/22 08/11/22 History mcg (1,000 unit) capsule Exam Narrative Exam Narrative: Obese female lying on a gurney in the emergency department alert and oriented person place time circumstance. Neck is supple no overt JVD carotid pulses are slow no bruits no thyromegaly Lungs are clear to auscultation Heart is bradycardic but regular no appreciable murmur rub Abdomen obese soft and nontender nondistended Lower extremities without peripheral cyanosis or edema. She does have some dependent rubor over both feet pedal pulses are palpable but diminished bilat erally Neuro exam grossly intact no focal deficits Results Labs Result diagrams: 08/11/22 15:50 08/11/22 15:50 Labs: Laboratory Results - last 24 hr 08/11/22 08/11/22 08/11/22 15:50 15:50 15:50 WBC 6.65 RBC 3.35 L Hgb 11.6 Hct 35.1 L MCV 105 H MCH 34.6 H MCHC 33.0 RDW 15.2 H Plt Count 250 MPV 10.2 Immature Gran % 0.3 Neutrophils % 69.6 Lymphocytes % 13.8 Monocytes % 12.2 Eosinophils % 3.3 Basophils % 0.8 Nucleated RBC % 0.0 Absolute Neutrophils 4.63 Absolute Lymphocytes 0.92 L Absolute Monocytes 0.81 H Absolute Eosinophils 0.22 Absolute Basophils 0.05 PT Cancelled INR Cancelled APTT Cancelled Sodium 137 Potassium 3.5 Chloride 97 L Carbon Dioxide 36.9 H Anion Gap 3.1 BUN 41 H Creatinine 2.1 H Est GFR (CKD-EPI 2020) 23.23 Glucose 108 H Calcium 9.2 Magnesium 2.4 Total Bilirubin 0.6 AST 31 ALT 16 Alkaline Phosphatase 111 Troponin I < 50 NT-Pro-B Natriuret Pep 715 H Total Protein 7.7 Albumin 2.7 L 08/11/22 08/11/22 15:50 16:09 WBC RBC Hgb Hct MCV MCH MCHC RDW Plt Count MPV Immature Gran % Neutrophils % Lymphocytes % Monocytes % Eosinophils % Basophils % Nucleated RBC % Absolute Neutrophils Absolute Lymphocytes Absolute Monocytes Absolute Eosinophils Absolute Basophils PT 24.2 H INR 2.5 H APTT 33.4 H Sodium Potassium Chloride Carbon Dioxide Anion Gap BUN Creatinine Est GFR (CKD-EPI 2020) Glucose Calcium Magnesium Total Bilirubin AST ALT Alkaline Phosphatase Troponin I NT-Pro-B Natriuret Pep Cancelled Total Protein Albumin Last Vital Signs Pulse 41 L 08/11/22 17:02 Resp 19 08/11/22 17:10 BP 165/76 H 08/11/22 17:02 Pulse Ox 100 08/11/22 15:26
[2022-08-11 18:05] LABS: COVID-19 PCR Negative (Negative); Influenza A PCR Negative (Negative); Influenza B PCR Negative (Negative); RSV PCR Negative (Negative)
[2022-08-11 18:08] LABS: Source Nasopharynx
[2022-08-11 19:08] LABS: Troponin I < 50 ng/L (<or=60)
[2022-08-11 19:27] LABS: Lab Add On Test DONE
[2022-08-11 19:49] LABS: TSH 9.75 uIU/mL (0.36-3.74)
[2022-08-11] MEDS: buPROPion-CR 100 MG TABCR PO (19:52)
[2022-08-11] MEDS: Latanoprost 0.005% 2.5 ML BTL OP (21:40)
[2022-08-11] MEDS: Normal Saline Flush 10 ML SYR IVP (22:01)
[2022-08-12] VITALS (9 sets, daily range): BP systolic 108–135; BP diastolic 48–69; PULSE 40–74; RESP 17–22; TEMP 35.6–36.7; O2SAT 92–96
[2022-08-12 05:57] LABS: Abs Immature Grans 0.02 10^3/uL (0.0-0.06); Absolute Basophil Count 0.06 10^3/uL (0.0-0.2); Absolute Lymphocyte Count 0.93 10^3/uL (1.2-3.4); Absolute Neutrophil Count 3.81 10^3/uL (1.2-6.7); Basophils % 1.1; Eosinophils % 3.6; HCT 36.1 % (36.0-46.0); HGB 11.6 g/dL (11.2-15.7); Immature Grans % 0.4; Lymphocytes % 16.5; MCH 33.9 pg (27.0-33.0); MCHC 32.1 % (32.0-36.0); MCV 106 fL (80-95); MPV 10.1 fL (8.0-11.0); Monocytes % 10.7; Neutrophils % 67.7; Platelet Count 245 10^3/uL (130-400); RBC 3.42 10^6/uL (3.93-5.22); RDW 15.4 % (11.7-14.6); RDW-SD 59.3 fL; WBC 5.62 10^3/uL (4.4-10.8)
[2022-08-12 06:08] LABS: Anion Gap 4.9 mmol/L (3-11); BUN 33 mg/dL (7-18); CO2 35.1 mmol/L (21.0-32.0); CREATININE 1.7 mg/dL (0.55-1.02); Calcium 9.1 mg/dL (8.5-10.1); Chloride 99 mmol/L (98-107); Estimated GFR 29.94 (mL/min/1.73m2); Glucose 98 mg/dL (74-106); INR 2.8 (0.9-1.1); Magnesium 2.1 mg/dL (1.8-2.4); Prothrombin Time 26.3 sec (9.3-11.0); Sodium 139 mmol/L (136-145)
[2022-08-12] MEDS: Levothyroxine 100 MCG TAB PO (06:08)
[2022-08-12 06:26] LABS: Diff Comment Diff Reviewed; Macrocytosis 2+
[2022-08-12] MEDS: buPROPion-CR 100 MG TABCR PO ×2 (07:59→19:57)
[2022-08-12] MEDS: Potassium Chloride 10 MEQ CAPCR 20 MEQ PO ×4 (07:59→19:57)
[2022-08-12] MEDS: Cholecalciferol (Vitamin D3) 1,000 UNIT TAB 1000 UNITS PO (07:59)
[2022-08-12] MEDS: Famotidine 20 MG TAB PO (07:59)
[2022-08-12] MEDS: Cyanocobalamin 500 MCG TAB 1000 MCG PO (07:59)
[2022-08-12] MEDS: Normal Saline Flush 10 ML SYR IVP ×2 (08:00→19:58)
[2022-08-12 08:20] LABS: Potassium 3.1 mmol/L (3.5-5.1)
--- NOTE | 2022-08-12 08:31 | INITIAL_ITS ---
- If Service Date Differs Date of service: 08/12/22 Time of Service: 08:37 Care Management Initial Assess REASON FOR HOSPITALIZATION:: Sinus bradycardia PAST MEDICAL HISTORY/PAST SURGICAL HISTORY:: All Active Problems (Updated 08/11/22 @ 18:33 by Michael Ingram MD). Chronic kidney disease (Chronic). Heart failure with reduced ejection fraction (Acute). Sinus bradycardia (Acute). Leukocytosis (Acute). 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 Acute renal failure (ARF) (Acute). Shortness of breath (Acute). Fatigue (Acute). Pulmonary arterial hypertension (Acute). Falls frequently (Acute). Hypomagnesemia (Acute). CHF (congestive heart failure) (Chronic). Status post total right knee replacement (Acute 05/30/20). Abnormal breast finding (Acute 01/19/18). Adenoma of colon (Acute 01/19/18). Bruising (Acute 01/19/18). Chronic depression (Acute 01/19/18). Degenerative arthritis of right knee (Chronic 04/23/15). Disorder of vulva (Acute 01/19/18). Edema leg (Acute 01/19/18). Obesity (Acute 07/11/13). Osteoarthritis (Acute 07/11/13). Other forms of dyspnea (Acute 01/19/18). Overactive bladder (Acute 01/19/18). Primary osteoarthritis of both knees (Chronic 10/29/15). Synvisc injection: 11/04/2019; 05/03/2019. Shortness of breath (Acute 01/19/18). Tendinitis of left shoulder (Acute 01/07/16). Rectal hemorrhage (Acute). Acute on chronic diastolic heart failure (Acute). Chest pain (Acute). Atrial fibrillation (Chronic). SOB (shortness of breath) (Acute). CHF (congestive heart failure) (Chronic). Cough (Acute). Right rotator cuff tendonitis (Acute). Medical History . Acute exacerbation of CHF (congestive heart failure). AF (paroxysmal atrial fibrillation) (01/19/18). Cataracts, bilateral. Chronic obstructive lung disease (07/11/13). Depression. Essential hypertension (07/11/13). H/O adenomatous polyp of colon. History of cardioversion. Hypertension. Hypothyroidism (07/11/13). Morbid obesity. Noncompliance with medication regimen. Osteoarthritis. Tendonitis. surgery r arm. Surgical History . Abdominal hysterectomy. H/O colonoscopy. x2. H/O: hysterectomy. History of carpal tunnel release. r wrist PREVIOUS FUNCTIONAL STATUS/SOCIAL/FAMILY SUPPORTS:: Celeste and her Valentin (goes by Rafat) live in a mobile home in [place]. Her adult children live out of [facility]. Her eldest son who resided in [place] in July of 2020. 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 She is independent with her ADLs at baseline but does use a cane and a walker for ambulatory assistance.. CURRENT FUNCTIONAL STATUS:: Celeste was sitting up in bed when CM met with her. She was very pleasant in manner and engaged readily with CM. Celeste spoke about her family and the possibility that she may move to [place] to be closer to some of her nieces and grandchildren. Celeste shared that she believes that her may have early dementia and realizes it may be prudent to be near relatives that would be able to help her. She stated that Rafat also has diabetes that is not well controilled which, per his provider, is likely contributing to the memory loss. While Celeste is fairly healthy at baseline, she is unable to stand for very long which affects her ability to walk long distances or do chores at home. ADVANCE DIRECTIVES:: none on file Has patient been provided with info about the portal/API?: Yes Did the patient sign up for the portal?: No CODE STATUS:: Full Code INSURANCE COVERAGE / FINANCIAL ISSUES:: [facility] Medicare Replacement CURRENT HOME/COMMUNITY SERVICES/EQUIPMENT:: none currently PRIMARY CARE PHYSICIAN:: Ginny Scherer POTENTIAL DISCHARGE NEEDS:: follow up with PCP and plan of care PATIENT/FAMILY EDUCATION NEEDS:: Review of discharge instructions re medications, limitations, and follow up plan of care.Discuss Ask Me Three. TRANSPORTATION:: via private vehicle with family PLAN:: Celeste will likely discharge home with a resumption of HH RN/PT services when medically cleared by provider. She will follow up with her PCP and plan of care as prescribed and transport with her via private vehicle. CM will continue to follow and support discharge planning needs.
--- NOTE | 2022-08-12 10:01 | PGE_ITS ---
Date of Service Date of service: 08/12/22 Time of Service: 10:01 Assessment and Plan Assessment and plan (1) Sinus bradycardia: Status: Acute Assessment and plan: dc amiodarone; cont. to hold her Toprol XL and monitor her HR and rhythm. get cardiac event recorder to assess stabiltiy of her HR and rhythm as outpatient. Professional time spent interviewing and examining patient, discussion of goals of care with hospital team (care management, nursing and consulting professionals) was 30 minutes. (2) AF (paroxysmal atrial fibrillation): Assessment and plan: as above. cont. warfarin w/ close monitoring. Now that she is off her amiodaraone, her INR may fall. Today it is 2.8. I will keep her current dose of 2.5 mg qpm w/ daily INR monitoring (3) Hypothyroidism: Assessment and plan: TSH remains elevated at 9.75 and over the past 3 levels her TSH is always on the higher side. Last level was 30.2. She is suppose to be taking levothyroxine 100 mcg daily. This dose has not been changed over her past couple of admissions going back to May and she says that she faithfully takes her synthroid first thing in the morning. I will increase to 112 mcg/day. Ideally she should be on 1.6 mcg/kg of IBW which would put her dose at 139 mcg. However, I would make small adjustments then have her PCP follow up w/ repeat level in 6 to 8 weeks. Qualifiers: Hypothyroidism type: acquired Qualified Code(s): E03.9 - Hypothyroidism, unspecified (4) Heart failure with reduced ejection fraction: Status: Acute Assessment and plan: Still bradycardic but BP ok. I will resume some of her CHF directed medications. I will start w/ her losartan tonight then add back her diuretics tomorrow morning.. (5) Chronic kidney disease: Status: Chronic Assessment and plan: renal function is improving. I will resume her diuretics tomorrow. She shoud be on low dose spironoloactone and the chlorthalidone should be stopped but her torsemide should be continued. (6) Chronic obstructive lung disease: Assessment and plan: No acute exacerbation. her dyspnea is secondary to her bradycardia. Patient uses home oxygen at 2 LPM. she does not appear to be on any routine bronchodilators and she is not having any wheezing therefore I did not prescirbe any prn bro nchodilators. Qualifiers: COPD type: unspecified COPD Qualified Code(s): J44.9 - Chronic obstructive pulmonary disease, unspecified Subjective Subjective Interval history since last seen: Patient is feeling better today. No dizziness, palpitations or chest pain. Dr. Rajan saw the patient this morning and came to speak with me. Celeste has never followed up w/ Dr. Rajan as an outpatient although Dr. Rajan saw her as an inpatient consult on 06/02 and at that time recommended discontinuation of her amiodarone as it had never been established that the patient was ever able to remain in sinus rhythm and it appeared she is in a chronic afib. The hospitalist did stop her amiodarone at her discharge on 06/03 but in the interim the patient's primary care provider resumed her amiodarone and when the patient was re-admitted on 06/20 was back on amiodarone 200 mg daily and has remained on this dose since then and has been on Toprol XL 100 mg bid since then. Today she remains in sinus bradycardia w/ HR in the 40's to low 50's. At present I have discontinued her amiodarone and we are holding her Toprol XL for now. At some point she will need to go back on the metoprol for rate control for her afib. I still think she may benefit from a pacer (to prevent the bradycardia induced by her medications)but Dr. Rajan feels that d/t her non-compliance she is not a candidate. We will keep her off any AV bryson blocking medications for now until we see how her HR responds off meds. Exam Narrative Exam Narrative: Celeste is sitting up at the bedside washing up Lungs: clear Heart: regular but slow, no murmur Legs: trace edema; chronic venous stasis dermatitis w/ bronze/purple discoloration to her skin Objective Last Vital Signs Temp 35.6 C L 08/12/22 07:15 Pulse 44 L 08/12/22 07:21 Resp 19 08/12/22 07:15 BP 113/60 08/12/22 07:15 Pulse Ox 92 08/12/22 07:15 Laboratory Results - last 24 hr 08/11/22 08/11/22 08/11/22 15:50 15:50 15:50 WBC 6.65 RBC 3.35 L Hgb 11.6 Hct 35.1 L MCV 105 H MCH 34.6 H MCHC 33.0 RDW 15.2 H Plt Count 250 MPV 10.2 Immature Gran % 0.3 Neutrophils % 69.6 Lymphocytes % 13.8 Monocytes % 12.2 Eosinophils % 3.3 Basophils % 0.8 Nucleated RBC % 0.0 Absolute Neutrophils 4.63 Absolute Lymphocytes 0.92 L Absolute Monocytes 0.81 H Absolute Eosinophils 0.22 Absolute Basophils 0.05 RBC Morphology Macrocytosis PT Cancelled INR Cancelled APTT Cancelled Sodium 137 Potassium 3.5 Chloride 97 L Carbon Dioxide 36.9 H Anion Gap 3.1 BUN 41 H Creatinine 2.1 H Est GFR (CKD-EPI 2020) 23.23 Glucose 108 H Calcium 9.2 Magnesium 2.4 Total Bilirubin 0.6 AST 31 ALT 16 Alkaline Phosphatase 111 Troponin I < 50 NT-Pro-B Natriuret Pep 715 H Total Protein 7.7 Albumin 2.7 L TSH COVID-19 Source SARS-CoV-2 (PCR) Influenza Type A (PCR) Influenza Type B (PCR) RSV (PCR) Add-On Test Request 08/11/22 08/11/22 08/11/22 15:50 16:09 17:20 WBC RBC Hgb Hct MCV MCH MCHC RDW Plt Count MPV Immature Gran % Neutrophils % Lymphocytes % Monocytes % Eosinophils % Basophils % Nucleated RBC % Absolute Neutrophils Absolute Lymphocytes Absolute Monocytes Absolute Eosinophils Absolute Basophils RBC Morphology Macrocytosis PT 24.2 H INR 2.5 H APTT 33.4 H Sodium Potassium Chloride Carbon Dioxide Anion Gap BUN Creatinine Est GFR (CKD-EPI 2020) Glucose Calcium Magnesium Total Bilirubin AST ALT Alkaline Phosphatase Troponin I NT-Pro-B Natriuret Pep Cancelled Total Protein Albumin TSH COVID-19 Source Nasopharynx SARS-CoV-2 (PCR) Negative Influenza Type A (PCR) Negative Influenza Type B (PCR) Negative RSV (PCR) Negative Add-On Test Request 08/11/22 08/11/22 08/11/22 18:37 18:37 18:37 WBC RBC Hgb Hct MCV MCH MCHC RDW Plt Count MPV Immature Gran % Neutrophils % Lymphocytes % Monocytes % Eosinophils % Basophils % Nucleated RBC % Absolute Neutrophils Absolute Lymphocytes Absolute Monocytes Absolute Eosinophils Absolute Basophils RBC Morphology Macrocytosis PT INR APTT Sodium Potassium Chloride Carbon Dioxide Anion Gap BUN Creatinine Est GFR (CKD-EPI 2020) Glucose Calcium Magnesium Total Bilirubin AST ALT Alkaline Phosphatase Troponin I < 50 NT-Pro-B Natriuret Pep Total Protein Albumin TSH 9.75 H COVID-19 Source SARS-CoV-2 (PCR) Influenza Type A (PCR) Influenza Type B (PCR) RSV (PCR) Add-On Test Request DONE 08/12/22 08/12/22 08/12/22 05:32 05:32 05:32 WBC 5.62 RBC 3.42 L Hgb 11.6 Hct 36.1 MCV 106 H MCH 33.9 H MCHC 32.1 RDW 15.4 H Plt Count 245 MPV 10.1 Immature Gran % 0.4 Neutrophils % 67.7 Lymphocytes % 16.5 Monocytes % 10.7 Eosinophils % 3.6 Basophils % 1.1 Nucleated RBC % 0.0 Absolute Neutrophils 3.81 Absolute Lymphocytes 0.93 L Absolute Monocytes 0.60 Absolute Eosinophils 0.20 Absolute Basophils 0.06 RBC Morphology See Below Macrocytosis 2+ PT 26.3 H INR 2.8 H APTT Sodium 139 Potassium 3.0 L Chloride 99 Carbon Dioxide 35.1 H Anion Gap 4.9 BUN 33 H Creatinine 1.7 H Est GFR (CKD-EPI 2020) 29.94 Glucose 98 Calcium 9.1 Magnesium 2.1 Total Bilirubin AST ALT Alkaline Phosphatase Troponin I NT-Pro-B Natriuret Pep Total Protein Albumin TSH COVID-19 Source SARS-CoV-2 (PCR) Influenza Type A (PCR) Influenza Type B (PCR) RSV (PCR) Add-On Test Request 08/12/22 07:55 WBC RBC Hgb Hct MCV MCH MCHC RDW Plt Count MPV Immature Gran % Neutrophils % Lymphocytes % Monocytes % Eosinophils % Basophils % Nucleated RBC % Absolute Neutrophils Absolute Lymphocytes Absolute Monocytes Absolute Eosinophils Absolute Basophils RBC Morphology Macrocytosis PT INR APTT Sodium Potassium 3.1 L Chloride Carbon Dioxide Anion Gap BUN Creatinine Est GFR (CKD-EPI 2020) Glucose Calcium Magnesium Total Bilirubin AST ALT Alkaline Phosphatase Troponin I NT-Pro-B Natriuret Pep Total Protein Albumin TSH COVID-19 Source SARS-CoV-2 (PCR) Influenza Type A (PCR) Influenza Type B (PCR) RSV (PCR) Add-On Test Request
--- NOTE | 2022-08-12 12:23 | CCONE_ITS ---
Date of service: 08/12/22 Time of Service: 12:23 Assessment and Plan Assessment and plan (1) Symptomatic bradycardia: Status: Acute Assessment and plan: This is likely due at least in part to a combination of amiodarone and beta- severiano. At this point observation to see how her heart rate and rhythm do off these medications will guide our next steps. Depending on her course, I would favor reinstitution of a beta-severiano first and not necessarily resuming amiodarone. It is too early to say if consideration if a pacemaker would be appropriate. Patient's presentation, medications, and history were discussed at length with Dr. Luo (2) Heart failure with reduced ejection fraction: Status: Acute Assessment and plan: She is not currently exhibiting findings of decompensated heart failure (3) AF (paroxysmal atrial fibrillation): Assessment and plan: Patient's prior hospitalizations this fall disclosed atrial fibrillation with overall controlled rates. She is now in sinus bradycardia. She has been maintained on warfarin for stroke prevention as the newer anticoagulants are not affordable for her and she worries about reversal agents. History of Present Illness Narrative: This is 1 of numerous hospital admissions for this 81-year-old woman who has a history of atrial fibrillation, mild to moderate left ventricular dysfunction, congestive heart failure. Several years ago she underwent synchronized cardioversion at [facility] from atrial fibrillation to sinus rhythm and was discharged on amiodarone. She had no subsequent follow-up but presented here to the hospital in May at which time she was in persistent atrial fibrillation and acute on chronic heart failure. The heart failure was addressed. It was recommended that she be continued on a rate control strategy along with her warfarin and it was advised that amiodarone be discontinued. During that admission she was started on metoprolol. She subsequently was readmitted to the hospital shortly thereafter and it appeared she had been restarted on amiodarone by primary care. During that admission no particular notice of elevated or low heart rates was described. She was admitted with acute on chronic kidney disease attributed to intravascular volume depletion and that was addressed and she was again discharged. She comes into the hospital on this occasion with a heart rate of approximately 40, sinus bradycardia. She has been admitted to the intensive care unit. Her amiodarone and metoprolol succinate appropriately being withheld. 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) Acute renal failure (ARF) (Acute) Shortness of breath (Acute) Fatigue (Acute) Pulmonary arterial hypertension (Acute) Falls frequently (Acute) Hypomagnesemia (Acute) CHF (congestive heart failure) (Chronic) Status post total right knee replacement (Acute 05/30/20) Abnormal breast finding (Acute 01/19/18) Adenoma of colon (Acute 01/19/18) Bruising (Acute 01/19/18) Chronic depression (Acute 01/19/18) Degenerative arthritis of right knee (Chronic 04/23/15) Disorder of vulva (Acute 01/19/18) Edema leg (Acute 01/19/18) Obesity (Acute 07/11/13) Osteoarthritis (Acute 07/11/13) Other forms of dyspnea (Acute 01/19/18) Overactive bladder (Acute 01/19/18) Primary osteoarthritis of both knees (Chronic 10/29/15) Synvisc injection: 11/04/2019; 05/03/2019 Shortness of breath (Acute 01/19/18) Tendinitis of left shoulder (Acute 01/07/16) Rectal hemorrhage (Acute) Acute on chronic diastolic heart failure (Acute) Chest pain (Acute) Atrial fibrillation (Chronic) SOB (shortness of breath) (Acute) CHF (congestive heart failure) (Chronic) Cough (Acute) Right rotator cuff tendonitis (Acute) Medical History Acute exacerbation of CHF (congestive heart failure) AF (paroxysmal atrial fibrillation) (01/19/18) Cataracts, bilateral Chronic obstructive lung disease (07/11/13) Depression Essential hypertension (07/11/13) H/O adenomatous polyp of colon History of cardioversion Hypertension Hypothyroidism (07/11/13) Morbid obesity Noncompliance with medication regimen Osteoarthritis Tendonitis surgery r arm Surgical History Abdominal hysterectomy H/O colonoscopy x2 H/O: hysterectomy History of carpal tunnel release r wrist Family History Other Heart disease Social History Smoking/Tobacco Use Status: Former Tobacco Use Smoking risk assessment performed?: Yes Alcohol Intake: former Drug use: Never Substance use type: does not use Current gender identity: female Do you feel safe at home: Yes Do you feel safe in your relationship?: Yes Additional Social history: Lives in [place] with Ed who is starting to have cognitive problems. They have financial issues Exam Narrative Exam Narrative: Patient was not examined Results Last Vital Signs Temp 35.6 C L 08/12/22 11:28 Pulse 45 L 08/12/22 11:28 Resp 19 08/12/22 11:28 BP 108/48 L 08/12/22 11:28 Pulse Ox 96 08/12/22 11:28 Labs Result diagrams: 08/12/22 05:32 08/12/22 07:55 Labs: Laboratory Results - last 24 hr 08/11/22 08/11/22 08/11/22 15:50 15:50 15:50 WBC 6.65 RBC 3.35 L Hgb 11.6 Hct 35.1 L MCV 105 H MCH 34.6 H MCHC 33.0 RDW 15.2 H Plt Count 250 MPV 10.2 Immature Gran % 0.3 Neutrophils % 69.6 Lymphocytes % 13.8 Monocytes % 12.2 Eosinophils % 3.3 Basophils % 0.8 Nucleated RBC % 0.0 Absolute Neutrophils 4.63 Absolute Lymphocytes 0.92 L Absolute Monocytes 0.81 H Absolute Eosinophils 0.22 Absolute Basophils 0.05 RBC Morphology Macrocytosis PT Cancelled INR Cancelled APTT Cancelled Sodium 137 Potassium 3.5 Chloride 97 L Carbon Dioxide 36.9 H Anion Gap 3.1 BUN 41 H Creatinine 2.1 H Est GFR (CKD-EPI 2020) 23.23 Glucose 108 H Calcium 9.2 Magnesium 2.4 Total Bilirubin 0.6 AST 31 ALT 16 Alkaline Phosphatase 111 Troponin I < 50 NT-Pro-B Natriuret Pep 715 H Total Protein 7.7 Albumin 2.7 L TSH COVID-19 Source SARS-CoV-2 (PCR) Influenza Type A (PCR) Influenza Type B (PCR) RSV (PCR) Add-On Test Request 08/11/22 08/11/22 08/11/22 15:50 16:09 17:20 WBC RBC Hgb Hct MCV MCH MCHC RDW Plt Count MPV Immature Gran % Neutrophils % Lymphocytes % Monocytes % Eosinophils % Basophils % Nucleated RBC % Absolute Neutrophils Absolute Lymphocytes Absolute Monocytes Absolute Eosinophils Absolute Basophils RBC Morphology Macrocytosis PT 24.2 H INR 2.5 H APTT 33.4 H Sodium Potassium Chloride Carbon Dioxide Anion Gap BUN Creatinine Est GFR (CKD-EPI 2020) Glucose Calcium Magnesium Total Bilirubin AST ALT Alkaline Phosphatase Troponin I NT-Pro-B Natriuret Pep Cancelled Total Protein Albumin TSH COVID-19 Source Nasopharynx SARS-CoV-2 (PCR) Negative Influenza Type A (PCR) Negative Influenza Type B (PCR) Negative RSV (PCR) Negative Add-On Test Request 08/11/22 08/11/22 08/11/22 18:37 18:37 18:37 WBC RBC Hgb Hct MCV MCH MCHC RDW Plt Count MPV Immature Gran % Neutrophils % Lymphocytes % Monocytes % Eosinophils % Basophils % Nucleated RBC % Absolute Neutrophils Absolute Lymphocytes Absolute Monocytes Absolute Eosinophils Absolute Basophils RBC Morphology Macrocytosis PT INR APTT Sodium Potassium Chloride Carbon Dioxide Anion Gap BUN Creatinine Est GFR (CKD-EPI 2020) Glucose Calcium Magnesium Total Bilirubin AST ALT Alkaline Phosphatase Troponin I < 50 NT-Pro-B Natriuret Pep Total Protein Albumin TSH 9.75 H COVID-19 Source SARS-CoV-2 (PCR) Influenza Type A (PCR) Influenza Type B (PCR) RSV (PCR) Add-On Test Request DONE 08/12/22 08/12/22 08/12/22 05:32 05:32 05:32 WBC 5.62 RBC 3.42 L Hgb 11.6 Hct 36.1 MCV 106 H MCH 33.9 H MCHC 32.1 RDW 15.4 H Plt Count 245 MPV 10.1 Immature Gran % 0.4 Neutrophils % 67.7 Lymphocytes % 16.5 Monocytes % 10.7 Eosinophils % 3.6 Basophils % 1.1 Nucleated RBC % 0.0 Absolute Neutrophils 3.81 Absolute Lymphocytes 0.93 L Absolute Monocytes 0.60 Absolute Eosinophils 0.20 Absolute Basophils 0.06 RBC Morphology See Below Macrocytosis 2+ PT 26.3 H INR 2.8 H APTT Sodium 139 Potassium 3.0 L Chloride 99 Carbon Dioxide 35.1 H Anion Gap 4.9 BUN 33 H Creatinine 1.7 H Est GFR (CKD-EPI 2020) 29.94 Glucose 98 Calcium 9.1 Magnesium 2.1 Total Bilirubin AST ALT Alkaline Phosphatase Troponin I NT-Pro-B Natriuret Pep Total Protein Albumin TSH COVID-19 Source SARS-CoV-2 (PCR) Influenza Type A (PCR) Influenza Type B (PCR) RSV (PCR) Add-On Test Request 08/12/22 07:55 WBC RBC Hgb Hct MCV MCH MCHC RDW Plt Count MPV Immature Gran % Neutrophils % Lymphocytes % Monocytes % Eosinophils % Basophils % Nucleated RBC % Absolute Neutrophils Absolute Lymphocytes Absolute Monocytes Absolute Eosinophils Absolute Basophils RBC Morphology Macrocytosis PT INR APTT Sodium Potassium 3.1 L Chloride Carbon Dioxide Anion Gap BUN Creatinine Est GFR (CKD-EPI 2020) Glucose Calcium Magnesium Total Bilirubin AST ALT Alkaline Phosphatase Troponin I NT-Pro-B Natriuret Pep Total Protein Albumin [facility] COVID-19 Source SARS-CoV-2 (PCR) Influenza Type A (PCR) Influenza Type B (PCR) RSV (PCR) Add-On Test Request
--- NOTE | 2022-08-12 15:54 | PHA.REVIEW2 ---
Pharmacy Admission Review - Admission Clinical Review (Last Reviewed 08/11/22 @ 18:30 by Michael Ingram MD) Symptomatic bradycardia (Acute) Dizziness (Acute) Heart failure with reduced ejection fraction (Acute) Sinus bradycardia (Acute) adhesive Allergy (Severe, Verified 08/11/22 15:59) skin rash, blisters lisinopril Allergy (Intermediate, Verified 08/11/22 15:59) amoxicillin [Amoxicillin] Allergy (Mild, Verified 08/11/22 15:59) TINGLING oxybutynin Allergy (Unknown, Verified 08/11/22 15:59) PT CAN'T REMEMBER Resuscitation Status Full Code Height 5 ft 4 in Weight 106 kg - Renal Dosing Renal Dosing: BUN 33 mg/dL (7-18) H 08/12/22 05:32 Creatinine 1.7 mg/dL (0.55-1.02) H 08/12/22 05:32 Medications needing adjustments: Intervened (Crcl ~30.77 mL/min. Famotadine dose was renally adjusted yesterday, it can be adjusted again as the pt's renal function has improved.) - Anticoagulation Anticoagulation: Hgb 11.6 g/dL (11.2-15.7) 08/12/22 05:32 Hct 36.1 % (36.0-46.0) 08/12/22 05:32 Plt Count 245 10^3/uL (130-400) 08/12/22 05:32 INR 2.8 (0.9-1.1) H 08/12/22 05:32 Creatinine 1.7 mg/dL (0.55-1.02) H 08/12/22 05:32 DVT Prophylaxis: N/A Therapeutic Anticoagulation: Reviewed Medications: Warfarin - Opiate Usage Evaluate Pain Scale/Pains Meds: N/A - Relevant Labs Sodium 139 mmol/L (136-145) 08/12/22 05:32 Potassium 3.1 mmol/L (3.5-5.1) L 08/12/22 07:55 Chloride 99 mmol/L (98-107) 08/12/22 05:32 Magnesium 2.1 mg/dL (1.8-2.4) 08/12/22 05:32 Electrolytes, C-Reactive P, ESR: Reviewed (PO K+ ordered) - DM Control DM Control: Glucose 98 mg/dL (74-106) 08/12/22 05:32 DM Control: N/A - Cardiac Review Cardiac Review: Troponin I < 50 ng/L (<or=60) 08/11/22 18:37 NT-Pro-B Natriuret Pep 715 pg/mL (<300) H 08/11/22 15:50 NT-Pro-B Natriuret Pep Cancelled 08/11/22 15:50 BP, HR, EF%: Reviewed (BP has been up and down some so far. HR is still low, but is improving some) - Qtc Review QTc: Reviewed (QTc 457 on admission) - IV to PO Switch IV Medications: Reviewed - Home Meds Home Med List reviewed: Intervened (Differences in the external med history compared to the home med list. Per providers office: pt is on warfarin 2.5mg QPM and was to have an INR done 08/11/22, losartan 25 mg BID, and Trelegy Ellipta 1 puff once daily. Home med list in [employer] was updated to reflect this and provider made aware.) Relevent Home Meds Not ordered & why?: amiodarone (discontinued/pt should no longer take this), trelegy (just mentioned to provider, will likely be substituted while admitted as this is non-formulary), magnesium, metoprolol (being held, bradycardia), naproxen (PRN, renal dysfunction), nystatin, torsemide (being held), chlorthalidone (being held) - Current meds Current Medication Order Review: Reviewed - Comments Comments/Follow Ups: Watch BP, HR, SCr, K+, mag, INR, labs and for med changes (possible renal dose adjustments, home meds).
[2022-08-12] MEDS: Budesonide/Formoterol 80/4.5 6.9 GM 60 PUFF INH IH (19:20)
[2022-08-12] MEDS: Losartan 25 MG TAB PO (19:55)
[2022-08-12] MEDS: Latanoprost 0.005% 2.5 ML BTL OP (21:31)
[2022-08-13] VITALS (9 sets, daily range): BP systolic 108–155; BP diastolic 56–90; PULSE 47–56; RESP 16–18; TEMP 36–36.9; O2SAT 93–98
[2022-08-13] MEDS: Levothyroxine 112 MCG TAB PO (05:33)
[2022-08-13 06:41] LABS: INR 2.8 (0.9-1.1); Prothrombin Time 26.5 sec (9.3-11.0)
[2022-08-13 06:43] LABS: Anion Gap 5.5 mmol/L (3-11); BUN 24 mg/dL (7-18); CO2 31.5 mmol/L (21.0-32.0); CREATININE 1.6 mg/dL (0.55-1.02); Calcium 9.5 mg/dL (8.5-10.1); Chloride 102 mmol/L (98-107); Glucose 108 mg/dL (74-106); Magnesium 1.9 mg/dL (1.8-2.4); Potassium 3.9 mmol/L (3.5-5.1); Sodium 139 mmol/L (136-145)
[2022-08-13] MEDS: Tiotropium Bromide-Respimat 10 PUFF INH IH (07:50)
[2022-08-13] MEDS: Budesonide/Formoterol 80/4.5 6.9 GM 60 PUFF INH IH ×2 (07:50→19:24)
[2022-08-13] MEDS: Famotidine 20 MG TAB PO (08:52)
[2022-08-13] MEDS: Potassium Chloride 10 MEQ CAPCR 20 MEQ PO ×4 (08:52→19:42)
[2022-08-13] MEDS: Cholecalciferol (Vitamin D3) 1,000 UNIT TAB 1000 UNITS PO (08:53)
[2022-08-13] MEDS: Cyanocobalamin 500 MCG TAB 1000 MCG PO (08:53)
[2022-08-13] MEDS: buPROPion-CR 100 MG TABCR PO ×2 (08:53→19:42)
[2022-08-13] MEDS: Normal Saline Flush 10 ML SYR IVP (08:53)
[2022-08-13] MEDS: Losartan 25 MG TAB PO (08:53)
--- NOTE | 2022-08-13 10:33 | PDOC.CMPRO ---
- If Service Date Differs Date of service: 08/13/22 Time of Service: 10:33 Care Management Progress Note S/O:Celeste was lying in bed dozing when CM met with her. She was pleasant and engaged easily with Cm but stated that for some reason she is really tired today. She stated that yesterday she felt great and was ready to go home, but is more fatigued today. Her provider recommended that Celeste stay one more night and she was agreeable. CM provided Celeste with information about a DME company in [place] that sells refurbished DME for a much lower cost than new. (She had indicated that she would like a wheelchair for home use when she is too tired to stand or walk for any time/distance, but could not afford one.) A: Celeste is an 81 year old woman admitted on 08/11/22 with bradycardia P:Celeste will likely discharge home with a resumption of HH RN/PT services when medically cleared by provider. She will follow up with her PCP and plan of care as prescribed and transport with her via private vehicle. CM will continue to follow and support discharge planning needs.
[2022-08-13] MEDS: Acetaminophen 325 MG TAB PO (16:07)
--- NOTE | 2022-08-13 16:15 | W.PM.PROGNOT ---
Date of Service Date of service: 08/13/22 Time of Service: 16:15 Assessment and Plan Assessment and plan (1) Symptomatic bradycardia: Status: Acute Assessment and plan: thought due to combination of amiodarone and beta-severiano. blood pressures stable, only symptom is fatigue continue to hold amiodarone and beta-severiano continue telemetry, cardiology consulted and follows outpatient will likely plan to start BB when able. (2) Heart failure with reduced ejection fraction: Status: Acute Assessment and plan: She is not currently exhibiting findings of decompensated heart failure last echo may 2022 Conclusion Mild concentric left ventricular hypertrophy.? Estimated ejection fraction is 40 to 45%.? There is mild global hypokinesis.? The patient is in atrial fibrillation with [id number]-nh-qnor variation, fair heart rate control throughout the study Right ventricle was not well visualized Left atrium is mildly dilated.? The right atrium is moderately dilated [place] aortic valve without stenosis or regurgitation Mild mitral regurgitation Mild tricuspid regurgitation.? Estimated right ventricular systolic pressure is 29 mmHg (3) AF (paroxysmal atrial fibrillation): Assessment and plan: now in sinus bradycardia. anticoagulated on coumadin, continue for INR goal 2-3 resume BB when able. (4) Chronic kidney disease: Status: Chronic Assessment and plan: stable with creatinine below baseline avoid nephrotoxic drugs, renal dose as needed. (5) DVT prophylaxis: Status: Acute Assessment and plan: anticoagulated on coumadin (6) Discharge planning issues: Status: Acute Assessment and plan: home with resumption of home health services discussed with DR Mayers Subjective Subjective Patient reports: no new complaints, tolerating liquids well, tolerating a regular diet, voiding w/o difficulty and afebrile; denies shortness of breath Interval history since last seen: feels fatigued. no orthostasis, no chest pain or shortness of breath Exam Const General: cooperative, healthy appearing, comfortable and no acute distress Nutritional Appearance: obese Orientation: alert, awake and oriented x3 HENMT Head: normal to inspection and normocephalic Mouth: oral mucosae normal Eyes General: appearance normal, both eyes and all related structures Neck Neck: normal visual inspection and no JVD Chest Chest: normal inspection of the chest Resp Effort & Inspection: normal respiratory effort Auscultation: clear to auscultation bilaterally and diminished lung sounds Cardio Rate: bradycardic Rhythm: regular rhythm GI Inspection: normal to inspection Palpation: soft Skin General skin exam: no rashes or lesions noted and other (chronic discoloration to bilateral lower ) Neuro General: patient alert, patient awake and patient oriented x3 Extrem General: normal to inspection and no pedal edema Psych Mental Status: mental status grossly normal Objective Last Vital Signs Temp 36.0 C L 08/13/22 14:58 Pulse 48 L 08/13/22 14:58 Resp 18 08/13/22 14:58 BP 133/75 08/13/22 14:58 Pulse Ox 98 08/13/22 14:58 Laboratory Results - last 24 hr 08/13/22 08/13/22 06:05 06:05 PT 26.5 H INR 2.8 H Sodium 139 Potassium 3.9 Chloride 102 Carbon Dioxide 31.5 Anion Gap 5.5 BUN 24 H Creatinine 1.6 H Est GFR (CKD-EPI 2020) 32.20 Glucose 108 H Calcium 9.5 Magnesium 1.9
[2022-08-13] MEDS: Latanoprost 0.005% 2.5 ML BTL OP (21:41)
[2022-08-13] MEDS: Pramipexole 0.25 MG TAB 0.125 MG PO (21:41)
[2022-08-14 02:05] VITALS: PULSE 58
[2022-08-14] MEDS: Levothyroxine 112 MCG TAB PO (06:35)
[2022-08-14 07:01] VITALS: PULSE 63
[2022-08-14 07:12] LABS: Abs Immature Grans 0.04 10^3/uL (0.0-0.06); Absolute Basophil Count 0.07 10^3/uL (0.0-0.2); Absolute Eosinophil Count 0.34 10^3/uL (0.0-0.7); Absolute Lymphocyte Count 1.25 10^3/uL (1.2-3.4); Absolute Monocyte Count 0.76 10^3/uL (0.1-0.8); Absolute Neutrophil Count 4.61 10^3/uL (1.2-6.7); Eosinophils % 4.8; HCT 38.1 % (36.0-46.0); Immature Grans % 0.6; Lymphocytes % 17.7; MCH 33.1 pg (27.0-33.0); MCHC 31.5 % (32.0-36.0); MCV 105 fL (80-95); Monocytes % 10.7; Neutrophils % 65.2; Platelet Count 240 10^3/uL (130-400); RBC 3.63 10^6/uL (3.93-5.22); RDW 15.5 % (11.7-14.6); RDW-SD 60.7 fL; WBC 7.07 10^3/uL (4.4-10.8)
[2022-08-14 07:25] LABS: Anion Gap 5.9 mmol/L (3-11); BUN 19 mg/dL (7-18); CO2 29.1 mmol/L (21.0-32.0); CREATININE 1.4 mg/dL (0.55-1.02); Calcium 9.3 mg/dL (8.5-10.1); Chloride 102 mmol/L (98-107); Glucose 96 mg/dL (74-106); Magnesium 1.8 mg/dL (1.8-2.4); Potassium 4.6 mmol/L (3.5-5.1); Sodium 137 mmol/L (136-145)
[2022-08-14 07:31] VITALS: BP 157/74; PULSE 56; RESP 22; TEMP 36.2; O2SAT 92
[2022-08-14 07:48] LABS: INR 2.5 (0.9-1.1)
[2022-08-14] MEDS: Potassium Chloride 10 MEQ CAPCR 20 MEQ PO ×2 (07:49→11:35)
[2022-08-14] MEDS: Losartan 25 MG TAB PO (07:49)
[2022-08-14] MEDS: Cholecalciferol (Vitamin D3) 1,000 UNIT TAB 1000 UNITS PO (07:49)
[2022-08-14] MEDS: Famotidine 20 MG TAB PO (07:49)
[2022-08-14] MEDS: Cyanocobalamin 500 MCG TAB 1000 MCG PO (07:49)
[2022-08-14] MEDS: buPROPion-CR 100 MG TABCR PO (07:49)
[2022-08-14] MEDS: Budesonide/Formoterol 80/4.5 6.9 GM 60 PUFF INH IH (09:03)
[2022-08-14] MEDS: Tiotropium Bromide-Respimat 10 PUFF INH IH (09:04)
--- NOTE | 2022-08-14 10:54 | DSE_ITS ---
Date of service: 08/14/22 Time of Service: 10:54 DS: Diagnosis Discharge Diagnosis (1) Symptomatic bradycardia: Status: Acute (2) Heart failure with reduced ejection fraction: Status: Acute (3) AF (paroxysmal atrial fibrillation): (4) Chronic kidney disease: Status: Chronic Discharge Plan Disposition Patient Disposition: Home W/Home Health Services Condition: Stable Discharge Details Reason For Visit: Bradycardia,Near Syncope Admit Date/Time: 08/11/22 16:56 Admit Provider: Michael Ingram Attending Provider: Michael Ingram Primary Care Provider: Ginny Scherer V Hospital Course Hospital Course: This is an 81-year-old female with history of paroxysmal atrial fibrillation, currently taking amiodarone and Toprol-XL and anticoagulated with warfarin, who also has comorbidities including COPD as well as heart failure with reduced ejection fraction, LVEF 45 to 50% who was sent to the emergency department via EMS after home health found her to be bradycardic with heart rate in the 30s.? Patient's been symptomatic from this including lightheadedness and fatigue but no associated syncope, or chest pain.? She has chronic exertional dyspnea.? Evaluation in the emergency department included routine labs including CBC, CMP, proBNP, troponin I level as well as an INR, EKG and chest x-ray.? CMP demonstrated chronic renal insufficiency with a BUN of 41 creatinine 2.1 which is slightly increased over her previous values of 33 and 2.2 however her baseline appears to be a BUN of 29 and creatinine 1.9.? Potassium level is normal at 3.5.? Her CO2 is chronically elevated at 36.9.? LFTs are normal.? Troponin I was less than 50 and proBNP was elevated at 715 which is well below her last level in June when she was elevated at 2500.? EKG was obtained and demonstrated sinus bradycardia rate of 40 bpm with diffuse T wave inversions across the precordial leads.? There was no evidence for advanced heart block.? TX intervals normal at 197 ms.? QTc was 457 ms.? Chest 2 Views showed cardiomegaly but otherwise clear lung dubois.? Pacer pads were placed on the patient in the emergency department but she never required external pacing.? Patient was admitted to the medical/surgical floor for continued telemetry monit oring and allow washout of her AV bryson medications.? Her amiodarone and her metoprolol were placed on hold. Serial troponins remained negative. she remained in sinus rhythm with no symptoms other than fatigue and normal blood pressures. she was safely reambulated and was eating and drinking. Her levothyroxine dose was increased to 112 mcg for TSH of 9, which was actually improved from 30. Her TSH should be drawn in 6 weeks. she was evaluated by Dr Rajan who had previously recommended that her amiodarone be discontinued during her last hospitalization but was restarted after discharge. patient cancelled or did not show for [address] Rajan recommends only beta severiano be restarted if needed. she remains in sinus oniel while sleeping, asymptomatic and sinus rhythm rate in the 60's when awake. she will be advised to monitor heart rate outpatient and report to pcp at follow up. she is being discharged to home with resumption of home health services. discharge discussed with DR Mayers. Home Meds and New Rx's Prescriptions: New levothyroxine 112 mcg Tablet 112 mcg PO DAILY@0600 Qty: 30 0RF Continued cholecalciferol (vitamin D3) 25 mcg (1,000 unit) capsule 25 mcg PO DAILY levothyroxine [Levoxyl] 100 MCG tablet 100 mcg PO DAILY latanoprost 2.5 ML drops 1 drp Ophthalmic HS warfarin 2.5 MG tablet 2.5 mg PO DAILY nystatin (bulk) 1 EACH powder 1 ea Miscellaneous DAILY 30 Days Qty: 1 1RF chlorthalidone 25 mg Tablet 25 mg PO DAILY Qty: 30 0RF magnesium oxide 400 mg (241.3 mg magnesium) Tablet 400 mg PO BID Qty: 60 0RF torsemide 20 mg Tablet 20 mg PO DAILY Qty: 30 0RF famotidine 20 mg Tablet 20 - 40 mg PO DAILY naproxen 375 mg tablet 375 mg PO BID PRNQty: 60 2RF pramipexole 0.125 mg tablet 0.125 - 0.25 mg PO HS PRN (Reason: Restless Leg(S)) Label Comments: TAKE 1 TO 2 TABLETS BY MOUTH AT BEDTIME IF NEEDED FOR RESTLESS LEGS cyanocobalamin (vitamin B-12) [Vitamin B-12] 1,000 mcg tablet 1,000 mcg PO DAILY Label Comments: TAKE 1 TABLET BY MOUTH ONCE DAILY methocarbamol 500 mg tablet 500 mg PO Q6H PRN (Reason: muscle spasm) Qty: 14 0RF bupropion HCl 100 mg tablet sustained-release 12 hr 100 mg PO BID Label Comments: TAKE 1 TABLET BY MOUTH TWICE DAILY losartan 50 mg tablet 25 mg PO BID Label Comments: Take 1/2 tablet by mouth twice a day Slime Arellano 100-62.5-25 mcg blister with device 1 inh INHALATION DAILY Held metoprolol succinate 100 mg Tablet Extended Release 24 Hr 100 mg PO Q12H Qty: 30 0RF Hold Instructions: until HR above 60 Discontinued amiodarone 200 mg tablet 200 mg PO DAILY Discharge Instructions Instructions: Hypothyroidism (DC), Bradycardia (DC) Additional Instructions: monitor your heart rate daily and record to bring to your follow up appointment take all medication as prescribed Stand Alone Forms: Nursing Discharge Form Referrals: Ginny Scherer MD [Primary Care Provider] - 08/28/22 11:30 am Activity:: Activity as Tolerated Equipment/Supplies:: No Equipment Needed Diet:: As Tolerated Discharge Orders Discharge Orders: Discharge Order (Routine); Ordered 08/14/22 Ordered By: Estela Florentino Discharge Data Discharge Date/Time-TO BE ENTERED AT DEPARTURE: 08/14/22 13:42 DS: Summary Time Spent with Patient providing and/or coordinating discharge services: Greater than 30 minutes Status at Discharge Functional status at discharge: independent ambulation Overall status at discharge: patient is progressing back to baseline Mental Status: mental status grossly normal Speech and Movement: speech and movement normal Mood: congruent mood Affect: normal affect Exam Const General: cooperative, healthy appearing, comfortable and no acute distress Nutritional Appearance: obese Orientation: alert, awake and oriented x3 HENMT Head: normal to inspection and normocephalic Mouth: oral mucosae normal Eyes General: appearance normal, both eyes and all related structures Neck Neck: normal visual inspection and no JVD Chest Chest: normal inspection of the chest Resp Effort & Inspection: normal respiratory effort Auscultation: clear to auscultation bilaterally and diminished lung sounds Cardio Rate: bradycardic Rhythm: regular rhythm GI Inspection: normal to inspection Palpation: soft Skin General skin exam: no rashes or lesions noted and other (chronic discoloration to bilateral lower ) Neuro General: patient alert, patient awake and patient oriented x3 Extrem General: normal to inspection and no pedal edema Psych Mental Status: mental status grossly normal Speech and Movement: speech and movement normal Mood: congruent mood Affect: normal affect DS: Data Vitals/I&O Vitals and I&O: Vital Signs Temperature 36.2 C L 08/14/22 07:31 Temperature Source Tympanic 08/14/22 07:31 Pulse 56 L 08/14/22 07:31 Pulse Rhythm Regular 08/14/22 10:10 Pulse 39 L 08/11/22 17:10 Respiratory Rate 22 08/14/22 07:31 Respiratory Effort Non-Labored 08/14/22 10:10 Respiratory Depth Normal 08/14/22 10:10 Respiratory Pattern Normal 08/14/22 10:10 Blood Pressure 157/74 H 08/14/22 07:31 Blood Pressure Mean 89 08/11/22 17:02 Pulse Oximetry 92 08/14/22 07:31 Oxygen Delivery Method Nasal Cannula 08/14/22 07:31 Oxygen Flow Rate 2 08/14/22 07:31 Pain Level 0 08/14/22 07:31 Intake & Output 08/13/22 08/13/22 08/14/22 11:59 23:59 11:59 Intake Total 180 / 180 490 / 490 Output Total 100 / 100 250 / 250 Balance -100 / 80 180 / 80 240 / 240 Weight 106.1 kg 106.6 kg Intake: IV 10 Oral 180 / 180 480 / 480 Output: Urine 100 / 100 250 / 250 Other: Urine Color Yellow Yellow Urine Appearance Clear Clear Clear Urine Odor Strong None Comment pt occasionally incontinent , but when put on commode preventatively after a period of time, unable to void. pt states she has been up with assist to the bathroom several times. Voiding Methods Diaper Bedside Commode Incontinent Data Completed and Pending Labs on day of discharge: Labs from last 24 hours 08/14/22 08/14/22 08/14/22 06:34 06:34 06:34 WBC 7.07 RBC 3.63 L Hgb 12.0 Hct 38.1 MCV 105 H MCH 33.1 H MCHC 31.5 L RDW 15.5 H Plt Count 240 MPV 10.0 Immature Gran % 0.6 Neutrophils % 65.2 Lymphocytes % 17.7 Monocytes % 10.7 Eosinophils % 4.8 Basophils % 1.0 Nucleated RBC % 0.0 Absolute Neutrophils 4.61 Absolute Lymphocytes 1.25 Absolute Monocytes 0.76 Absolute Eosinophils 0.34 Absolute Basophils 0.07 PT 24.0 H INR 2.5 H Sodium 137 Potassium 4.6 Chloride 102 Carbon Dioxide 29.1 Anion Gap 5.9 BUN 19 H Creatinine 1.4 H Est GFR (CKD-EPI 2020) 37.80 Glucose 96 Calcium 9.3 Magnesium 1.8 PFSH All Active Problems (Updated 08/13/22 @ 17:06 by Estela Florentino NP) Discharge planning issues (Acute) DVT prophylaxis (Acute) Symptomatic bradycardia (Acute) Dizziness (Acute) Chronic kidney disease (Chronic) Heart failure with reduced ejection fraction (Acute) Sinus bradycardia (Acute) Leukocytosis (Acute) 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) Acute renal failure (ARF) (Acute) Shortness of breath (Acute) Fatigue (Acute) Pulmonary arterial hypertension (Acute) Falls frequently (Acute) Hypomagnesemia (Acute) CHF (congestive heart failure) (Chronic) Status post total right knee replacement (Acute 05/30/20) Abnormal breast finding (Acute 01/19/18) Adenoma of colon (Acute 01/19/18) Bruising (Acute 01/19/18) Chronic depression (Acute 01/19/18) Degenerative arthritis of right knee (Chronic 04/23/15) Disorder of vulva (Acute 01/19/18) Edema leg (Acute 01/19/18) Obesity (Acute 07/11/13) Osteoarthritis (Acute 07/11/13) Other forms of dyspnea (Acute 01/19/18) Overactive bladder (Acute 01/19/18) Primary osteoarthritis of both knees (Chronic 10/29/15) Synvisc injection: 11/04/2019; 05/03/2019 Shortness of breath (Acute 01/19/18) Tendinitis of left shoulder (Acute 01/07/16) Rectal hemorrhage (Acute) Acute on chronic diastolic heart failure (Acute) Chest pain (Acute) Atrial fibrillation (Chronic) SOB (shortness of breath) (Acute) CHF (congestive heart failure) (Chronic) Cough (Acute) Right rotator cuff tendonitis (Acute) Medical History Acute exacerbation of CHF (congestive heart failure) AF (paroxysmal atrial fibrillation) (01/19/18) Cataracts, bilateral Chronic obstructive lung disease (07/11/13) Depression Essential hypertension (07/11/13) H/O adenomatous polyp of colon History of cardioversion Hypertension Hypothyroidism (07/11/13) Morbid obesity Noncompliance with medication regimen Osteoarthritis Tendonitis surgery r arm Surgical History Abdominal hysterectomy H/O colonoscopy x2 H/O: hysterectomy History of carpal tunnel release r wrist Family History Other Heart disease Social History Smoking/Tobacco Use Status: Former Tobacco Use Smoking risk assessment performed?: Yes Alcohol Intake: former Drug use: Never Substance use type: does not use Current gender identity: female Do you feel safe at home: Yes Do you feel safe in your relationship?: Yes Additional Social history: Lives in [place] with Ed who is starting to have cognitive problems. They have financial issues
[2022-08-14 11:33] VITALS: BP 138/82; PULSE 63; RESP 24; TEMP 36.7; O2SAT 96
[2022-08-14 11:55] VITALS: PULSE 59
--- NOTE | 2022-08-14 12:49 | CMDISCH_ITS ---
- If Service Date Differs Date of service: 08/14/22 Time of Service: 12:49 LACE Index Scoring Tool - Questions: Length of Stay (in days): 3 Acuity (Admit via E.D.?): Yes Comorbidities: Congestive Heart Failure, Chronic Pulmonary Disease E.D. Visits: 5 - Answers: Total Score: 15 Risk of Readmission: High Risk Care Management Discharge Reason for Hospitalization: Sinus bradycardia Discharge Plan: Celeste will discharge home with a resumption of RN/PT (CM notified [facility]) services when medically cleared by provider. She will follow up with her PCP and plan of care as prescribed and transport with her via private vehicle. Patient/Family Education Needs: Review discharge instructions, discuss Ask Me Three. Services Needed at Discharge: Home Health Care Services (Resumption)
== END 2022-08-14 13:42 | disposition home health service (06) | DRG 308 ==
LOC: ER 17:34 → MS 18:05
PROVIDERS: Internal Medicine; Admitting Provider Internal Medicine; Emergency Provider Physician Assistant; PCP Family Medicine; Visit Provider Internal Medicine
DX: R00.1 Bradycardia, unspecified (principal); I50.21 Acute systolic (congestive) heart failure; I13.0 Hypertensive heart and chronic kidney disease with heart failure and stage 1 through stage 4 chronic kidney disease, or unspecified chronic kidney disease; Z68.41 Body mass index [BMI] 40.0-44.9, adult; T46.2X5A Adverse effect of other antidysrhythmic drugs, initial encounter; I48.0 Paroxysmal atrial fibrillation; E03.9 Hypothyroidism, unspecified; E66.01 Morbid (severe) obesity due to excess calories; E78.5 Hyperlipidemia, unspecified; J44.9 Chronic obstructive pulmonary disease, unspecified; Z79.01 Long term (current) use of anticoagulants; I27.20 Pulmonary hypertension, unspecified; E83.42 Hypomagnesemia; Z96.651 Presence of right artificial knee joint; F32.9 Major depressive disorder, single episode, unspecified; N32.81 Overactive bladder; M75.92 Shoulder lesion, unspecified, left shoulder; Z91.199 Patient's noncompliance with other medical treatment and regimen due to unspecified reason; N18.9 Chronic kidney disease, unspecified; I08.1 Rheumatic disorders of both mitral and tricuspid valves
CPT/HCPCS: 36415; 80048; 80053; 87637; 93005; 94640; 99223; 99285; 71045; 83735; 83880; 84132; 84443; 84484; 85025; 85610; 85730; 93010; 99232; 99233; 99239

== ENCOUNTER 2022-08-21 16:58 | Outpatient (REF) | payer MEDICARE, SELFPAY ==
[2022-08-21 17:18] LABS: BUN 31 mg/dL (7-18); CREATININE 2.1 mg/dL (0.55-1.02); Calcium 9.3 mg/dL (8.5-10.1); Chloride 98 mmol/L (98-107); Estimated GFR 23.23 (mL/min/1.73m2); Glucose 126 mg/dL (74-106); Potassium 3.2 mmol/L (3.5-5.1); Sodium 138 mmol/L (136-145)
== END 2022-08-21 16:59 | disposition home or self-care (01) ==
LOC: NCHCN 16:58
PROVIDERS: PCP Family Medicine; Visit Provider Family Medicine
DX: I10 Essential (primary) hypertension (principal); E87.6 Hypokalemia
CPT/HCPCS: 80048

== ENCOUNTER 2022-08-28 13:48 | Outpatient (REF) | payer MEDICARE, SELFPAY ==
[2022-08-28 15:15] LABS: INR 2.8 (0.9-1.1); Prothrombin Time 26.5 sec (9.3-11.0)
[2022-08-28 15:23] LABS: ALT 19 U/L (14-59); AST 28 U/L (15-37); Alkaline Phosphatase 115 U/L (46-116); Anion Gap 6.6 mmol/L (3-11); BUN 41 mg/dL (7-18); Bilirubin, Total 0.4 mg/dL (0.2-1.0); CO2 35.4 mmol/L (21.0-32.0); Chloride 97 mmol/L (98-107); Estimated GFR 24.64 (mL/min/1.73m2); FREE T4 1.72 ng/dL (0.76-1.46); Glucose 103 mg/dL (74-106); Magnesium 2.1 mg/dL (1.8-2.4); Potassium 3.2 mmol/L (3.5-5.1); Sodium 139 mmol/L (136-145); Total Protein 7.3 g/dL (6.4-8.2)
== END 2022-08-28 13:49 | disposition home or self-care (01) ==
LOC: NCHCN 13:48
PROVIDERS: PCP Family Medicine; Visit Provider Family Medicine
DX: I50.9 Heart failure, unspecified (principal); I10 Essential (primary) hypertension; E87.6 Hypokalemia; E83.42 Hypomagnesemia; Z79.01 Long term (current) use of anticoagulants
CPT/HCPCS: 80053; 83735; 84439; 85610

== ENCOUNTER 2022-09-09 18:16 | Outpatient (REF) | payer MEDICARE, SELFPAY ==
[2022-09-09 19:22] LABS: Anion Gap 5.5 mmol/L (3-11); BUN 20 mg/dL (7-18); CO2 33.5 mmol/L (21.0-32.0); CREATININE 1.4 mg/dL (0.55-1.02); Calcium 9.2 mg/dL (8.5-10.1); Chloride 102 mmol/L (98-107); Glucose 151 mg/dL (74-106); Potassium 4.6 mmol/L (3.5-5.1); Sodium 141 mmol/L (136-145)
== END 2022-09-09 18:17 | disposition home or self-care (01) ==
LOC: NCHCN 18:16
PROVIDERS: PCP Family Medicine; Visit Provider Family Medicine
DX: E87.6 Hypokalemia (principal)
CPT/HCPCS: 80048

== ENCOUNTER 2022-10-07 16:41 | Outpatient (REF) | payer MEDICARE, SELFPAY ==
[2022-10-07 17:21] LABS: ALT 14 U/L (14-59); AST 20 U/L (15-37); Albumin 3.3 g/dL (3.4-5.0); Alkaline Phosphatase 139 U/L (46-116); Anion Gap 5.5 mmol/L (3-11); BUN 28 mg/dL (7-18); Bilirubin, Total 0.5 mg/dL (0.2-1.0); CO2 33.5 mmol/L (21.0-32.0); CREATININE 1.4 mg/dL (0.55-1.02); Calcium 9.6 mg/dL (8.5-10.1); Chloride 100 mmol/L (98-107); Glucose 95 mg/dL (74-106); Potassium 4.2 mmol/L (3.5-5.1); Sodium 139 mmol/L (136-145); Total Protein 8.1 g/dL (6.4-8.2)
== END 2022-10-07 16:42 | disposition home or self-care (01) ==
LOC: NCHCN 16:41
PROVIDERS: PCP Family Medicine; Visit Provider Family Medicine
DX: I13.0 Hypertensive heart and chronic kidney disease with heart failure and stage 1 through stage 4 chronic kidney disease, or unspecified chronic kidney disease (principal); E83.42 Hypomagnesemia
CPT/HCPCS: 80053; 83735

== ENCOUNTER 2023-03-12 12:02 | Outpatient (REF) | payer MEDICARE, SELFPAY ==
[2023-03-12 17:18] LABS: HCT 35.7 % (36.0-46.0); HGB 11.4 g/dL (11.2-15.7); MCH 32.5 pg (27.0-33.0); MCHC 31.9 % (32.0-36.0); MCV 102 fL (80-95); MPV 9.9 fL (8.0-11.0); Platelet Count 263 10^3/uL (130-400); RBC 3.51 10^6/uL (3.93-5.22); RDW 13.6 % (11.7-14.6); RDW-SD 51.5 fL; WBC 5.28 10^3/uL (4.4-10.8)
[2023-03-12 17:40] LABS: Calculated LDL 96 mg/dL (<100); Cholesterol 182 mg/dL (<200); HDL Cholesterol 69 mg/dL (40-60); NT-proBNP 431 pg/mL (<300); TSH (W/Ref FT4) 1.18 uIU/mL (0.36-3.74); Triglyceride 86 mg/dL (<150)
[2023-03-12 17:48] LABS: Hemoglobin A1C 5.6 % (<5.7)
[2023-03-13 09:36] LABS: Anion Gap 9.5 mmol/L (3-11); BUN 22 mg/dL (7-18); CO2 27.5 mmol/L (21.0-32.0); CREATININE 1.3 mg/dL (0.55-1.02); Calcium 9.4 mg/dL (8.5-10.1); Chloride 102 mmol/L (98-107); Estimated GFR 41.06 (mL/min/1.73m2); Glucose 94 mg/dL (74-106); Sodium 139 mmol/L (136-145)
== END 2023-03-12 12:03 | disposition home or self-care (01) ==
LOC: NCHCN 12:02
PROVIDERS: PCP Family Medicine; Visit Provider Family Medicine
DX: I11.0 Hypertensive heart disease with heart failure (principal); R73.03 Prediabetes; I50.9 Heart failure, unspecified; I48.0 Paroxysmal atrial fibrillation; E03.9 Hypothyroidism, unspecified; Z86.2 Personal history of diseases of the blood and blood-forming organs and certain disorders involving the immune mechanism; Z79.01 Long term (current) use of anticoagulants
CPT/HCPCS: 80048; 80061; 85027; 83036; 83880; 84443

== ENCOUNTER 2023-06-02 11:49 | Outpatient (CLI) | payer MEDICARE, SELFPAY ==
--- NOTE | 2023-06-02 10:15 | DI.RAD_ITS ---
Exam(s) XR KNEE LT 3V AP,LAT,ANIA EXAM: XR KNEE LT 3V AP,LAT,ANIA CLINICAL HISTORY: Left knee pain. TECHNIQUE: 2D digital imaging was performed of the left knee. Three images were obtained. AP, late ral and PA tunnel views were obtained. COMPARISON: CR XR STANDING ALIGNMENT from 05/11/2020 FINDINGS: BONES: No acute fracture is present. No bony destructive lesion is seen. JOINTS: There are degenerative changes involving all 3 joint compartments characterized by joint spac e narrowing and osteophytes. Chondrocalcinosis in the femoral tibial joint is noted. There is a sma ll joint effusion. No loose body. SOFT TISSUE: Normal. IMPRESSION: Moderately severe degenerative changes in the knee. DATA REPOSITORY: RADIATION DOSE DELIVERED:
== END 2023-06-02 11:50 | disposition home or self-care (01) ==
LOC: DIORS 11:50
PROVIDERS: PCP Family Medicine; Referring Provider Family Medicine
DX: M17.12 Unilateral primary osteoarthritis, left knee
CPT/HCPCS: 20610; 73562; J7325

== ENCOUNTER 2023-10-30 17:00 | Inpatient (IN) | payer MEDICARE, SELFPAY ==
[2023-10-30] VITALS (66 sets, daily range): BP systolic 88–192; BP diastolic 49–161; PULSE 78–184; RESP 10–40; TEMP 36.6–36.7; O2SAT 88–100
--- NOTE | 2023-10-30 16:45 | RT.EKG_ITS ---
APPROVED REPORT Exam: Resting ECG Reason for Exam: sob Patient Location: E HR:163 bpm ECG Measurements Heart Rate 163 AXIS CA [id number] P [id number] QRSd 79 QRS 13 QT 242 T 204 QTc 394 Conclusion Atrial fibrillation with rapid V-rate...A-rate 336 Aberrant complex...small R-R variation, aberrant QRS Repolarization abnormality, prob rate related...ST dep, T neg, tachycardia Narrow complex atrial fibrillation with rapid ventricular response at a rate of 163. Left axis devia tion no signs of LVH based on voltage criteria. Mild ST segment flattening V4 and V5. Biphasic T wa ve in aVL. No acute injury pattern. Compared to prior dated 2 years ago A-fib with RVR has replaced sinus bradycardia. T wave abnormalities are improved.
--- NOTE | 2023-10-30 17:00 | DI.RAD_ITS ---
Exam(s) XR PORTABLE CHEST AP EXAM: XR PORTABLE CHEST AP CLINICAL HISTORY: PUI, SOB, Chest Pressure TECHNIQUE: 2D digital imaging was performed. COMPARISON: CR XR PORTABLE CHEST AP from 08/11/2022 FINDINGS: Exam limited by motion. LUNGS: Chronic interstitial changes. No definite pulmonary edema.. No focal infiltrate visible. No pleural abnormality seen. HEART: Enlarged. AORTA: Normal diameter. BONES: Unremarkable for age. Soft tissues: Unremarkable. IMPRESSION: Limited exam. No acute findings. DATA REPOSITORY: RADIATION DOSE DELIVERED:
--- NOTE | 2023-10-30 17:12 | ED.GENADUL_ITS ---
HPI General Mode of arrival: EMS . Date/Time Provider Initiated Documentation: 10/30/23 17:09 . Limitations to Documentation: no limitations . Information obtained by: patient, EMS, RN notes reviewed and old records reviewed . HPI Narrative: 82-year-old female presents to the ER via EMS with a chief complaint of cough which is productive of green sputum. Shortness of breath since Thursday. Was seen at [facility] 3 days ago diagnosed with a viral URI. She reports that she does have some chest pressure rating it 2 out of 10. She has been taking her medication as prescribed. She is on warfarin, torsemide and bisoprolol. She does have 2+ pitting edema noted to her bilateral lower ankles, she does have a cough noted. She does appear dyspneic upon arrival. She did receive 1 albuterol nebulizer per EMS prior to arrival. Related Data Home Medications Medication Instructions Recorded Confirmed Levoxyl 100 mcg tablet 100 mcg PO DAILY 07/11/13 10/30/23 (levothyroxine) latanoprost 0.005 % eye drops 1 drp ophthalmic (eye) HS 01/19/18 10/30/23 warfarin 2.5 mg tablet 2.5 mg PO DAILY 01/19/18 10/30/23 nystatin (bulk) 500 million unit 1 ea miscellaneous DAILY 30 days 02/05/18 10/30/23 powder ##1 famotidine 20 mg tablet 20 - 40 mg PO DAILY 05/28/20 10/30/23 cyanocobalamin (vitamin B-12) 1,000 mcg PO DAILY 05/30/20 10/30/23 1,000 mcg tablet (Vitamin B-12) naproxen 375 mg tablet 375 mg PO BID PRN #60 tabs 05/30/20 10/30/23 pramipexole 0.125 mg tablet 0.125 - 0.25 mg PO HS PRN Restless 05/30/20 10/30/23 Leg(S) bupropion HCl 100 mg tablet,12 hr 100 mg PO BID 10/24/21 10/30/23 sustained-release chlorthalidone 25 mg tablet 25 mg PO DAILY #30 tabs 06/03/22 10/30/23 magnesium oxide 400 mg (241.3 mg 400 mg PO BID #60 tabs 06/03/22 10/30/23 magnesium) tablet metoprolol succinate 100 mg 100 mg PO Q12H #30 tabs 06/03/22 10/30/23 tablet,extended release 24 hr torsemide 20 mg tablet 20 mg PO DAILY #30 tabs 06/03/22 10/30/23 cholecalciferol (vitamin D3) 25 25 mcg PO DAILY 06/04/22 10/30/23 mcg (1,000 unit) capsule fluticasone fur. 100 mcg-umeclid 1 inh inhalation DAILY 08/12/22 10/30/23 62.5 mcg-vilant 25 mcg inhalat.powder (Trelegy Ellipta) bisoprolol fumarate 5 mg tablet 1.25 mg PO DAILY 04/15/23 10/30/23 losartan 50 mg tablet 50 mg PO BID 04/15/23 10/30/23 potassium chloride 10 mEq 20 meq PO DAILY 04/15/23 10/30/23 capsule,extended release tizanidine 2 mg capsule 2 mg PO QHS PRN 04/15/23 10/30/23 tramadol 50 mg tablet 50 mg PO Q4H PRN 04/15/23 10/30/23 benzonatate 100 mg capsule 100 mg PO TID PRN cough 7 days #20 10/27/23 10/30/23 caps Previous Rx's Medication Instructions Recorded nystatin (bulk) 500 million unit 1 ea miscellaneous DAILY 30 days 02/05/18 powder ##1 naproxen 375 mg tablet 375 mg PO BID PRN #60 tabs 05/30/20 chlorthalidone 25 mg tablet 25 mg PO DAILY #30 tabs 06/03/22 magnesium oxide 400 mg (241.3 mg 400 mg PO BID #60 tabs 06/03/22 magnesium) tablet metoprolol succinate 100 mg 100 mg PO Q12H #30 tabs 06/03/22 tablet,extended release 24 hr torsemide 20 mg tablet 20 mg PO DAILY #30 tabs 06/03/22 benzonatate 100 mg capsule 100 mg PO TID PRN cough 7 days #20 10/27/23 caps Allergies Allergy/AdvReac Type Severity Reaction Status Date / Time adhesive Allergy Severe skin rash, Verified 10/27/23 15:33 blisters lisinopril Allergy Intermediate Nausea Verified 10/27/23 15:33 amoxicillin [Amoxicillin] Allergy Mild TINGLING Verified 10/27/23 15:33 oxybutynin Allergy Unknown PT CAN'T Verified 10/27/23 15:33 REMEMBER adhesive tape Allergy Hives Verified 10/27/23 15:34 General Stated Complaint: RespSymp CECILIA: 3 Review of Systems Cardiovascular Cardiovascular: Reports dyspnea Respiratory Respiratory: Reports as per HPI, Reports cough and Reports dyspnea Gastrointestinal Gastrointestinal: Denies diarrhea, Denies nausea and Denies vomiting Exam Narrative Exam Narrative: Constitutional: Alert and oriented x3. Appears stated age. Obese body habitus. Dyspneic upon arrival, pursed lip breathing, increased work of breathing. Bronchial type cough. Head: Normocephalic, no trauma. Eyes: Pupils PERRL, Red reflex noted, EOM's intact. Eyelids symmetrical without lesions, discharge, or swelling. ENT: Bilateral TM's WNL, External ear normal to inspection, no mastoid TTP, swelling, or erythema, Nasal turbinates WNL, no nasal discharge. Normal dentition, Posterior pharynx WNL, no exudate. Chest: RRR, Normal S1, S2, distal pulses intact. Resp: Lungs with scattered wheezes throughout. Diminished in the bases. Abdomen: Soft, non-distended, Normoactive bowel sounds all 4 quads. Musculoskeletal: 4/5 strength to all four extremities. 1+ pitting edema noted to bilateral lower ankles. Skin: No suspicious rashes or lesions. Capillary refill less than 2 sec. Neurologic: Cranial nerves II-XII intact. Alert and oriented x 3. Motor: No deficits noted. Sensory: Intact bilaterally all 4 extremities. Reflexes: DTR's intact bilaterally.. Hematologic/Lymphatic: No ecchymosis, no lymphadenopathy. Course Vital Signs Vital signs: Vital Signs Temperature 36.6 C 10/30/23 16:56 Pulse 154 H 10/30/23 16:56 Respiratory Rate 22 10/30/23 16:56 Blood Pressure 167/128 H 10/30/23 16:56 Pulse Oximetry 94 10/30/23 16:56 Temperature 36.6 C 10/30/23 16:56 Pulse 154 H 10/30/23 16:56 Respiratory Rate 22 10/30/23 16:56 Respiratory Effort Normal 10/30/23 17:03 Respiratory Depth Normal 10/30/23 17:03 Blood Pressure 167/128 H 10/30/23 16:56 Blood Pressure Position Supine 10/30/23 16:56 Pulse Oximetry 94 10/30/23 16:56 Oxygen Delivery Method Room Air 10/30/23 16:56 Oxygen Flow Rate 0 10/30/23 16:56 Pain Level 0 10/30/23 16:56 Lab/Test Results Lab/Test Results: 10/30/23 17:10 Blood Blood Culture - Pending 10/30/23 17:10 Blood Blood Culture - Pending Medical Decision Making 82-year-old female presents to the ER via EMS with a chief complaint of cough which is productive of green sputum. Shortness of breath since Thursday. Was seen at [facility] 3 days ago diagnosed with a viral URI. She reports that she does have some chest pressure rating it 2 out of 10. She has been taking her medication as prescribed. She is on warfarin, torsemide and bisoprolol. She does have 2+ pitting edema noted to her bilateral lower ankles, she does have a cough noted. She does appear dyspneic upon arrival. She did receive 1 albuterol nebulizer per EMS prior to arrival. Cardiac workup ordered including EKG, serial troponins, patient does present in A-fib with RVR with a rate of max 180, she is satting 92% on room air. Blood cultures lactate ordered, chest x-ray, albuterol DuoNeb ordered, Solu- Medrol, VBG proBNP. Will consider metoprolol for rate control and 500 cc normal saline bolus to determine if it is fluid responsive. Differential diagnosis includes but not limited to A-fib with RVR, pneumonia, PE, viral illness, COVID, COPD exacerbation. CBC shows no leukocytosis, CMP shows sodium 137 potassium 4.3 creatinine 1.2 glucose 125, VBG shows pCO2 of 55 bicarb of 31 base excess of 5 lactate 1.6, alk phos is 164 proBNP is 2802, albumin 3.1. COVID flu RSV is Pending. Upon further discussion with patient she reports that she is normally on 2 L home O2 nasal cannula. She was placed on this. Heart rate is down to 128 at this time blood pressure is improved at 109/89. O2 sat is 95% on 2 L. Respirations 26. Patient takes Torsemide 20 mg Daily, an additional dose of this ordered. Dr. Rucker at bedside at my request for POCUS exam moderate CHF exacerbation with reduced ejection fraction, plea. Repeat troponin due approximately 20 minutes. Discussed plan of care with patient for admission and she verbalizes understanding at this time. She is consistent cough which is nonretractable. Heart rate at this time is 163. Blood pressure is 157/58. Se see his note. He does recommend digoxin 0.5 loading dose at this time for rate control and 40 mg of furosemide IV. Those orders were placed. Will plan to consult with hospitalist for admission for CHF exacerbation. 2011: HR after Digoxin is 133, no significant change, Will plan for admission pending serial Troponin for CHF exacerbation. Patient complaining of leg cramping, is at the end of the bed, has approximately 600 cc of clear yellow urine out put from her Early. Will page hospitalist. Dr. Daly agrees to accept patient for admission, he recommends Metoprolol 12.5 mg IV which was ordered. Heart rate is now down to 110-1 26, blood pressure 136/65 O2 sats 95% on 2 L nasal cannula respiratory rate is 32. Patient awakens easily to stimuli. Awaiting bed placement upstairs. This text was generated using [email or web address] system, please disregard any oddities of phrase or misspellings. Medical Records Medical records reviewed: Yes I reviewed the patient's medical records. Lab Data Lab results reviewed: Yes I reviewed the patient's lab results. Labs: 10/30/23 18:35 Blood Blood Culture - Pending 10/30/23 18:35 Blood Blood Culture - Pending Laboratory Tests Range/Units 10/30/23 17:10 WBC (4.4-10.8) 10^3/uL 10.17 RBC (3.93-5.22) 10^6/uL 4.01 Hgb (11.2-15.7) g/dL 13.0 Hct (36.0-46.0) % 40.9 MCV (80-95) fL 102 H MCH (27.0-33.0) pg 32.4 MCHC (32.0-36.0) % 31.8 L RDW (11.7-14.6) % 13.5 Plt Count (130-400) 10^3/uL 288 MPV (8.0-11.0) fL 9.9 Immature Gran % 0.3 Neutrophils % 77.8 Lymphocytes % 11.1 Monocytes % 8.5 Eosinophils % 1.6 Basophils % 0.7 Nucleated RBC % (0.0-0.3) % 0.0 Absolute Neutrophils (1.2-6.7) 10^3/uL 7.92 H Absolute Lymphocytes (1.2-3.4) 10^3/uL 1.13 L Absolute Monocytes (0.1-0.8) 10^3/uL 0.86 H Absolute Eosinophils (0.0-0.7) 10^3/uL 0.16 Absolute Basophils (0.0-0.2) 10^3/uL 0.07 VBG pH (7.31-7.41) 7.35 VBG pCO2 (41-51) mmHg 55 H VBG pO2 mmHg 27 VBG HCO3 (23-28) mmol/L 31 H VBG Total CO2 (24-29) mmol/L 28 VBG O2 Saturation % 45 VBG Base Excess (-2-3) mmol/L 5 H VBG Lactate (0.6-1.4) mmol/L 1.6 H Sodium (136-145) mmol/L 137 Potassium (3.5-5.1) mmol/L 4.3 Chloride (98-107) mmol/L 99 Carbon Dioxide (21.0-32.0) mmol/L 30.4 Anion Gap (3-11) mmol/L 7.6 BUN (7-18) mg/dL 15 Creatinine (0.55-1.02) mg/dL 1.2 H Est GFR (CKD-EPI 2020) (mL/min/1.73m2) 45.19 Glucose (74-106) mg/dL 125 H Calcium (8.5-10.1) mg/dL 9.8 Magnesium (1.8-2.4) mg/dL 2.2 Total Bilirubin (0.2-1.0) mg/dL 0.8 AST (15-37) U/L 27 ALT (14-59) U/L 22 Alkaline Phosphatase (46-116) U/L 164 H Troponin I (< or =60) ng/L < 50 NT-Pro-B Natriuret Pep (<300) pg/mL 2802 H Total Protein (6.4-8.2) g/dL 9.0 H Albumin (3.4-5.0) g/dL 3.1 L COVID-19 Source Nasopharynx SARS-CoV-2 (PCR) (Negative) Negative Influenza Type A (PCR) (Negative) Negative Influenza Type B (PCR) (Negative) Negative RSV (PCR) (Negative) Negative Quality:SDOH Health Related Social Needs: No Data to Display PFSH All Active Problems (Updated 10/30/23 @ 22:05 by Isai Alexander) Chronic obstructive lung disease (Chronic 07/11/13) CHF exacerbation (Acute) Osteoarthritis of left knee (Acute) Symptomatic bradycardia (Acute) Dizziness (Acute) Chronic kidney disease (Chronic) Heart failure with reduced ejection fraction (Acute) Sinus bradycardia (Acute) Leukocytosis (Acute) 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) Acute renal failure (ARF) (Acute) Shortness of breath (Acute) Fatigue (Acute) Pulmonary arterial hypertension (Acute) Falls frequently (Acute) Hypomagnesemia (Acute) CHF (congestive heart failure) (Chronic) Status post total right knee replacement (Acute 05/30/20) Abnormal breast finding (Acute 01/19/18) Adenoma of colon (Acute 01/19/18) Bruising (Acute 01/19/18) Chronic depression (Acute 01/19/18) Degenerative arthritis of right knee (Chronic 04/23/15) Disorder of vulva (Acute 01/19/18) Edema leg (Acute 01/19/18) Obesity (Acute 07/11/13) Osteoarthritis (Acute 07/11/13) Other forms of dyspnea (Acute 01/19/18) Overactive bladder (Acute 01/19/18) Primary osteoarthritis of both knees (Chronic 10/29/15) Synvisc injection: 11/04/2019; 05/03/2019 Shortness of breath (Acute 01/19/18) Tendinitis of left shoulder (Acute 01/07/16) Rectal hemorrhage (Acute) Acute on chronic diastolic heart failure (Acute) Chest pain (Acute) Atrial fibrillation (Chronic) SOB (shortness of breath) (Acute) CHF (congestive heart failure) (Chronic) Cough (Acute) Right rotator cuff tendonitis (Acute) Medical History Noncompliance with medication regimen Acute exacerbation of CHF (congestive heart failure) History of cardioversion Cataracts, bilateral Tendonitis surgery r arm Depression Osteoarthritis Morbid obesity H/O adenomatous polyp of colon Hypothyroidism (07/11/13) Essential hypertension (07/11/13) Chronic obstructive lung disease (07/11/13) AF (paroxysmal atrial fibrillation) (01/19/18) Hypertension Surgical History History of carpal tunnel release r wrist H/O: hysterectomy H/O colonoscopy x2 Abdominal hysterectomy Family History Other Heart disease Social History Smoking/Tobacco Use Status: Former Tobacco Use Smoking risk assessment performed?: Yes Alcohol Intake: former Drug use: Never Substance use type: does not use Current gender identity: female Do you feel safe at home: Yes Do you feel safe in your relationship?: Yes Additional Social history: Lives in [place] with Ed who is starting to have cognitive problems. They have financial issues Discharge Plan Disposition Patient Disposition: Admit to [facility] Condition: Fair Discharge Details Clinical Impression: CHF exacerbation Primary Care Provider: Ginny Scherer V ED Provider: Mary Ibarra Home Meds and New Rx's Prescriptions: No Action benzonatate 100 mg capsule 100 mg PO TID PRN (Reason: cough) 7 Days Qty: 20 0RF cholecalciferol (vitamin D3) 25 mcg (1,000 unit) capsule 25 mcg PO DAILY levothyroxine [Levoxyl] 100 MCG tablet 100 mcg PO DAILY latanoprost 2.5 ML drops 1 drp Ophthalmic HS warfarin 2.5 MG tablet 2.5 mg PO DAILY nystatin (bulk) 1 EACH powder 1 ea Miscellaneous DAILY 30 Days Qty: 1 1RF Hold Instructions: Changed by Provider tramadol 50 mg tablet 50 mg PO Q4H PRN bisoprolol fumarate 5 mg tablet 1.25 mg PO DAILY tizanidine 2 mg capsule 2 mg PO QHS PRN potassium chloride 10 mEq capsule, extended release 20 meq PO DAILY losartan 50 mg tablet 50 mg PO BID metoprolol succinate 100 mg Tablet Extended Release 24 Hr 100 mg PO Q12H Qty: 30 0RF Hold Instructions: until HR above 60 chlorthalidone 25 mg Tablet 25 mg PO DAILY Qty: 30 0RF magnesium oxide 400 mg (241.3 mg magnesium) Tablet 400 mg PO BID Qty: 60 0RF torsemide 20 mg Tablet 20 mg PO DAILY Qty: 30 0RF famotidine 20 mg Tablet 20 - 40 mg PO DAILY naproxen 375 mg tablet 375 mg PO BID PRNQty: 60 2RF pramipexole 0.125 mg tablet 0.125 - 0.25 mg PO HS PRN (Reason: Restless Leg(S)) Patient Comments: TAKE 1 TO 2 TABLETS BY MOUTH AT BEDTIME IF NEEDED FOR RESTLESS LEGS cyanocobalamin (vitamin B-12) [Vitamin B-12] 1,000 mcg tablet 1,000 mcg PO DAILY Patient Comments: TAKE 1 TABLET BY MOUTH ONCE DAILY bupropion HCl 100 mg tablet sustained-release 12 hr 100 mg PO BID Patient Comments: TAKE 1 TABLET BY MOUTH TWICE DAILY Trelegy Ellipta 100-62.5-25 mcg blister with device 1 inh INHALATION DAILY
[2023-10-30 17:19] LABS: Abs Immature Grans 0.03 10^3/uL (0.0-0.06); Absolute Basophil Count 0.07 10^3/uL (0.0-0.2); Absolute Eosinophil Count 0.16 10^3/uL (0.0-0.7); Absolute Lymphocyte Count 1.13 10^3/uL (1.2-3.4); Absolute Monocyte Count 0.86 10^3/uL (0.1-0.8); Absolute Neutrophil Count 7.92 10^3/uL (1.2-6.7); BE (Venous) 5 mmol/L (-2-3); Basophils % 0.7; Eosinophils % 1.6; HCO3 (Venous) 31 mmol/L (23-28); HCT 40.9 % (36.0-46.0); Immature Grans % 0.3; Lymphocytes % 11.1; MCH 32.4 pg (27.0-33.0); MCHC 31.8 % (32.0-36.0); MCV 102 fL (80-95); MPV 9.9 fL (8.0-11.0); Monocytes % 8.5; Neutrophils % 77.8; O2 Sat (Venous) 45 %; Platelet Count 288 10^3/uL (130-400); RBC 4.01 10^6/uL (3.93-5.22); RDW 13.5 % (11.7-14.6); RDW-SD 51.5 fL; TCO2 (Venous) 28 mmol/L (24-29); WBC 10.17 10^3/uL (4.4-10.8); pCO2 (Venous) 55 mmHg (41-51); pH (Venous) 7.35 (7.31-7.41); pO2 (Venous) 27 mmHg
[2023-10-30 17:21] LABS: Lactate 1.6 mmol/L (0.6-1.4)
[2023-10-30] MEDS: Normal Saline 500 ML IV (17:30)
[2023-10-30] MEDS: Albuterol/Ipratropium 3 ML UPD VIAL UPD ×2 (17:30→18:45)
[2023-10-30] MEDS: methylPREDNISolone SUCC 125 MG VIAL IVP (17:30)
[2023-10-30 17:45] LABS: ALT 22 U/L (14-59); AST 27 U/L (15-37); Albumin 3.1 g/dL (3.4-5.0); Alkaline Phosphatase 164 U/L (46-116); Anion Gap 7.6 mmol/L (3-11); BUN 15 mg/dL (7-18); Bilirubin, Total 0.8 mg/dL (0.2-1.0); CO2 30.4 mmol/L (21.0-32.0); CREATININE 1.2 mg/dL (0.55-1.02); Calcium 9.8 mg/dL (8.5-10.1); Chloride 99 mmol/L (98-107); Estimated GFR 45.19 (mL/min/1.73m2); Glucose 125 mg/dL (74-106); Magnesium 2.2 mg/dL (1.8-2.4); NT-proBNP 2802 pg/mL (<300); Potassium 4.3 mmol/L (3.5-5.1); Sodium 137 mmol/L (136-145); Troponin I < 50 ng/L (< or =60)
[2023-10-30 17:52] LABS: COVID-19 PCR Negative (Negative); Influenza A PCR Negative (Negative); Influenza B PCR Negative (Negative); RSV PCR Negative (Negative)
[2023-10-30 18:02] LABS: Source Nasopharynx
[2023-10-30] MEDS: Torsemide 20 MG TAB PO (18:10)
[2023-10-30] MEDS: LORazepam 2 MG/ML VIAL 0.5 MG IVP (18:46)
[2023-10-30] MEDS: Dexamethasone 10 MG/ML VIAL PO (19:06)
--- NOTE | 2023-10-30 19:15 | W.EDPROG ---
Date of service: 10/30/23 Time of Service: 19:15 Medical Decision Making I was asked to participate in this patient's care by her advanced practice provider. In brief this is an 82-year-old female with heart failure with reduced ejection fraction arriving to the emergency department in setting of shortness of breath. She was found to be in A-fib with RVR. She was mildly hypertensive. Please see echo interpretation. Patient will likely benefit from hospitalization. Her bedside ultrasound was consistent with acute heart failure with reduced ejection fraction. She was not in extremis and did not require rescue BiPAP for SCAPE. Quality:SDOH Health Related Social Needs: Health related social needs inadequate housing, material hardship, transpo insecurity Discharge Plan Disposition Patient Disposition: Admit to [facility] Condition: Fair Discharge Details Clinical Impression: CHF exacerbation Admit Date/Time: 10/30/23 22:16 Admit Provider: Isai Alexander Attending Provider: Isai Alexander Primary Care Provider: Ginny Scherer V ED Provider: Mary Ibarra Discharge Data Discharge Date/Time-TO BE ENTERED AT DEPARTURE: 10/30/23 23:33 POCUS Exam (ED) Limited Cardiac Exam DATE OF EXAM: 10/30/23 TIME OF EXAM: 19:16 PROVIDER THAT PERFORMED THE STUDY: Cristian Rucker IS THIS A REPEAT EXAM DURING THIS ENCOUNTER: no REASON FOR EXAM: Dyspnea VISUALIZED STRUCTURES: Four Chambers, Left ventricle, LVOT and Other structure: Lungs bilaterally VIEW OBTAINED: Apical 4-Chamber and Parasternal long-axis PERTINENT FINDINGS/IMPRESSION: LV dysfunction and Other (Bilateral B-lines) Aortic outflow track less than 4 cm, moderate squeeze, RV less than LV, no significant pericardial effusion. Bilateral B-lines. ; No pericardial effusion Exam complete
[2023-10-30] MEDS: Furosemide 40 MG/4 ML VIAL IVP (19:48)
[2023-10-30] MEDS: Digoxin 0.5 MG/2 ML AMP IVP (19:48)
[2023-10-30 20:31] LABS: INR 2.8 (0.9-1.1); PTT Activated 41.3 sec (23.6-32.8)
[2023-10-30 20:34] LABS: Troponin I < 50 ng/L (< or =60)
[2023-10-30] MEDS: Metoprolol 5 MG/5 ML VIAL 2.5 MG IVP (20:59)
--- NOTE | 2023-10-30 21:58 | HPE_ITS ---
Date of service: 10/30/23 Time of Service: 21:58 Assessment and Plan Assessment and plan (1) Acute exacerbation of CHF (congestive heart failure): Start date: 10/30/23 Assessment and plan: This is an 82-year-old lady with chronic COPD and reduce left-ventricular action fraction CHF. She has had progressive symptoms over the last 5 days and has not responded to symptomatic treatment prompting evaluation in the ED and found to be in exacerbation of CHF with mild hypercapnia and chronic hypoxemia stable and not worsened. She was given IV Lasix and will continue on IV Lasix twice daily holding her usual lower dose of torsemide. She did have diuresis with her dose of IV Lasix. She does have a Early catheter for measuring strict her intake and output measurements. She is overall more comfortable but the cough persist and this will be treated with morphine which may help with her CHF, cough suppressants aspects and also her pain in her intertriginous region of her abdomen. She is lacking sleep over the last several days. She is a DNR/DNI. Qualifiers: Heart failure type: combined systolic and diastolic Qualified Code(s): I50.43 - Acute on chronic combined systolic (congestive) and diastolic (congestive) heart failure (2) Chronic obstructive lung disease: Status: Chronic Assessment and plan: Worsening symptoms recently with increased sputum production and diffuse wheeze upon presentation with her CHF exacerbation. She did not respond to nebulizers and will be treated with more frequent nebulizer treatments as well as IV Solu- Medrol. Because of her increased production of sputum and change in color at the beginning of her illness, she will be placed on doxycycline IV. Qualifiers: COPD type: unspecified COPD Qualified Code(s): J44.9 - Chronic obstructive pulmonary disease, unspecified (3) Atrial fibrillation: Status: Chronic Assessment and plan: Rapid ventricular response the patient having her high-dose metoprolol held recently with bradycardia on her problem list. She will be reinitiated on metoprolol 12.5 mg every 6 hours with IV metoprolol 2.5 mg as needed for sustained heart rate over 140. Watch for hypotension. Her bisoprolol will be held for now. Qualifiers: Atrial fibrillation type: persistent (not longstanding) Qualified Code(s): I48.19 - Other persistent atrial fibrillation (4) Hypertension: Assessment and plan: Chronic with patient to continue outpatient medical therapy modified as needed. Qualifiers: Hypertension type: primary hypertension Qualified Code(s): I10 - Essential (primary) hypertension History of Present Illness History of Present Illness Chief Complaint: Dyspnea with cough and sputum production Narrative: This is an 82-year-old female patient who began to have cough with slight production of sputum as if she had an upper respiratory infection 5 days prior to presentation. She was seen as an outpatient and started on Tessalon Perles for her cough which is chronic especially at night but worsened over the last days. This did not improve her status and she reported to the ED for evaluation having severe coughing spells with wheeze and increasing shortness of breath. She denies any fever and sputum may have change colors at the onset but was clear upon presentation. Imaging in the ED did not reveal pneumonia but the patient did have significant wheeze which was not improving. Echocardiogram to suggest worsening CHF the patient was given IV Lasix in the ED. She is chronically on torsemide. She does not weigh herself daily but does not think she has been gaining weight. She has had no increase in edema. She denies any chest pain or chest pressure. He has no GI complaints. She does have severe tenderness when raw skin over her right lower abdomen in the intertriginous region of her pannus. This is chronic. Tessalon Perles did not improve her cough. Repeated nebulizer treatments in the ED did not significant improve her cough. She was initiated on therapy for a COPD exacerbation chronically on Trelegy but no other treatment. She does have home O2 at 2 L/min per nasal cannula chronically but did not have significant hypoxemia in the ED. Patient continued to have an irritating paroxysms of cough during my conversation and she did agree to low-dose morphine overnight possibly help her cough but also her discomfort over her lower abdomen. She does appear fatigued. She is a DNR/DNI but COLST form does need to be filled out in the future. She stated that she would want to be resuscitated if she was on the OR table but otherwise no interventions which would be the usual protocol if she did go to surgery. She is and lives alone. See ED notes which were reviewed. Review of Systems Narrative: 13 point review of systems otherwise unrevealing or stable. Patient is very talkative. 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) Acute renal failure (ARF) (Acute) Shortness of breath (Acute) Fatigue (Acute) Pulmonary arterial hypertension (Acute) Falls frequently (Acute) Hypomagnesemia (Acute) CHF (congestive heart failure) (Chronic) Status post total right knee replacement (Acute 05/30/20) Abnormal breast finding (Acute 01/19/18) Adenoma of colon (Acute 01/19/18) Bruising (Acute 01/19/18) Chronic depression (Acute 01/19/18) Degenerative arthritis of right knee (Chronic 04/23/15) Disorder of vulva (Acute 01/19/18) Edema leg (Acute 01/19/18) Obesity (Acute 07/11/13) Osteoarthritis (Acute 07/11/13) Other forms of dyspnea (Acute 01/19/18) Overactive bladder (Acute 01/19/18) Primary osteoarthritis of both knees (Chronic 10/29/15) Synvisc injection: 11/04/2019; 05/03/2019 Shortness of breath (Acute 01/19/18) Tendinitis of left shoulder (Acute 01/07/16) Rectal hemorrhage (Acute) Acute on chronic diastolic heart failure (Acute) Chest pain (Acute) Atrial fibrillation (Chronic) SOB (shortness of breath) (Acute) CHF (congestive heart failure) (Chronic) Cough (Acute) Right rotator cuff tendonitis (Acute) Medical History Noncompliance with medication regimen Acute exacerbation of CHF (congestive heart failure) History of cardioversion Cataracts, bilateral Tendonitis surgery r arm Depression Osteoarthritis Morbid obesity H/O adenomatous polyp of colon Hypothyroidism (07/11/13) Essential hypertension (07/11/13) Chronic obstructive lung disease (07/11/13) AF (paroxysmal atrial fibrillation) (01/19/18) Hypertension Surgical History History of carpal tunnel release r wrist H/O: hysterectomy H/O colonoscopy x2 Abdominal hysterectomy Family History Other Heart disease Social History Smoking/Tobacco Use Status: Former Tobacco Use Smoking risk assessment performed?: Yes Alcohol Intake: former Drug use: Never Substance use type: does not use Housing: other Current gender identity: female Do you feel safe at home: Yes Do you feel safe in your relationship?: Yes Additional Social history: Lives in [place] with Ed who is starting to have cognitive problems. They have financial issues Meds Allergies and Home Medications Allergies Allergy/AdvReac Type Severity Reaction Status Date / Time adhesive Allergy Severe skin rash, Verified 10/27/23 15:33 blisters lisinopril Allergy Intermediate Nausea Verified 10/27/23 15:33 amoxicillin [Amoxicillin] Allergy Mild TINGLING Verified 10/27/23 15:33 oxybutynin Allergy Unknown PT CAN'T Verified 10/27/23 15:33 REMEMBER adhesive tape Allergy Hives Verified 10/27/23 15:34 Home Medications Medication Instructions Recorded Confirmed Type Levoxyl 100 mcg tablet 100 mcg PO DAILY 07/11/13 10/30/23 History (levothyroxine) latanoprost 0.005 % eye drops 1 drp ophthalmic (eye) HS 01/19/18 10/30/23 History warfarin 2.5 mg tablet 2.5 mg PO DAILY 01/19/18 10/30/23 History nystatin (bulk) 500 million unit 1 ea miscellaneous DAILY 30 days 02/05/18 10/30/23 Rx powder ##1 famotidine 20 mg tablet 20 - 40 mg PO DAILY 05/28/20 10/30/23 History cyanocobalamin (vitamin B-12) 1,000 mcg PO DAILY 05/30/20 10/30/23 History 1,000 mcg tablet (Vitamin B-12) naproxen 375 mg tablet 375 mg PO BID PRN #60 tabs 05/30/20 10/30/23 Rx pramipexole 0.125 mg tablet 0.125 - 0.25 mg PO HS PRN Restless 05/30/20 10/30/23 History Leg(S) bupropion HCl 100 mg tablet,12 hr 100 mg PO BID 10/24/21 10/30/23 History sustained-release chlorthalidone 25 mg tablet 25 mg PO DAILY #30 tabs 06/03/22 10/30/23 Rx magnesium oxide 400 mg (241.3 mg 400 mg PO BID #60 tabs 06/03/22 10/30/23 Rx magnesium) tablet metoprolol succinate 100 mg 100 mg PO Q12H #30 tabs 06/03/22 10/30/23 Rx tablet,extended release 24 hr torsemide 20 mg tablet 20 mg PO DAILY #30 tabs 06/03/22 10/30/23 Rx cholecalciferol (vitamin D3) 25 25 mcg PO DAILY 06/04/22 10/30/23 History mcg (1,000 unit) capsule fluticasone fur. 100 mcg-umeclid 1 inh inhalation DAILY 08/12/22 10/30/23 History 62.5 mcg-vilant 25 mcg inhalat.powder (Trelegy Ellipta) bisoprolol fumarate 5 mg tablet 1.25 mg PO DAILY 04/15/23 10/30/23 History losartan 50 mg tablet 50 mg PO BID 04/15/23 10/30/23 History potassium chloride 10 mEq 20 meq PO DAILY 04/15/23 10/30/23 History capsule,extended release tizanidine 2 mg capsule 2 mg PO QHS PRN 04/15/23 10/30/23 History tramadol 50 mg tablet 50 mg PO Q4H PRN 04/15/23 10/30/23 History benzonatate 100 mg capsule 100 mg PO TID PRN cough 7 days #20 10/27/23 10/30/23 Rx caps Exam Narrative Exam Narrative: General: Patient appears appropriate for age, morbidly obese especially over the trunk lying in bed but is slightly elevated and having paroxysms of cough. He is in moderate distress with her coughing. She is alert and oriented x 3. HEENT: Normocephalic, eyes with pupils equal react light symmetrically, extraocular movement tachycardia sclera anicteric. Oropharynx with dry mucosa and denture plates above below. Neck: Supple without JVD. Back: Stooped posture without CVA tenderness. Lungs: Diffuse inspiratory and expiratory wheeze with increased expiratory phase with rhonchi when coughing. No focalizing rales. No auscultated focal crackles. Aeration. Heart: Irregular irregular rhythm with tachycardia but no appreciable murmur or gallop. Breast: Exam deferred. Abdomen: Obese contour, large pannus with erythematous moist rash over her mid and right abdomen in the intertriginous region of the pannus covered with white ointment. No palpable hepatosplenomegaly. No focalizing tenderness or rebound. Bowel sounds positive all quadrants. Genitalia/rectal: Exam deferred. Patient does have Early catheter. Extremities: Obese lower extremities with nonpitting edema over the legs and ankles. No cyanosis or clubbing. Good cap refill. Skin: Intertriginous rash over the abdomen as mentioned, otherwise normal color, warm and dry. Neuro: Cranial nerves II through XII gross intact, no focalizing motor deficits. No tremor. Psych: Normal affect and mood with pressured speech. No abnormal thought processes. Remote and recent memory grossly intact. Results Imaging Imaging Studies: EXAM: XR PORTABLE CHEST AP CLINICAL HISTORY: PUI, SOB, Chest Pressure TECHNIQUE: 2D digital imaging was performed. COMPARISON: CR XR PORTABLE CHEST AP from 08/11/2022 FINDINGS: Exam limited by motion. LUNGS: Chronic interstitial changes. No definite pulmonary edema.. No focal infiltrate visible. No pleural abnormality seen. HEART: Enlarged. AORTA: Normal diameter. BONES: Unremarkable for age. Soft tissues: Unremarkable. IMPRESSION: Limited exam. No acute findings. EXAM: Comprehensive 2D, Doppler, and color-flow Echocardiogram 06/03/2022 Patient Location: In-Patient Room/Bed: [facility] In Classroom Tutor: Juana Franks RDCS (AE) Indications: CHF,Evaluate LV and RV Other Information Study Quality: Fair. Technically limited study due to body habitus, inability to position patient exam done supine. Conclusion Mild concentric left ventricular hypertrophy. Estimated ejection fraction is 40 to 45%. There is mild global hypokinesis. The patient is in atrial fibrillation with [id number] variation, fair heart rate control throughout the study Right ventricle was not well visualized Left atrium is mildly dilated. The right atrium is moderately dilated Trileaflet aortic valve without stenosis or regurgitation Mild mitral regurgitation Mild tricuspid regurgitation. Estimated right ventricular systolic pressure is 29 mmHg Labs 10/30/23 17:10 10/30/23 17:10 Labs: Laboratory Results - last 24 hr 10/30/23 10/30/23 17:10 20:02 WBC 10.17 RBC 4.01 Hgb 13.0 Hct 40.9 MCV 102 H MCH 32.4 MCHC 31.8 L RDW 13.5 Plt Count 288 MPV 9.9 Immature Gran % 0.3 Neutrophils % 77.8 Lymphocytes % 11.1 Monocytes % 8.5 Eosinophils % 1.6 Basophils % 0.7 Nucleated RBC % 0.0 Absolute Neutrophils 7.92 H Absolute Lymphocytes 1.13 L Absolute Monocytes 0.86 H Absolute Eosinophils 0.16 Absolute Basophils 0.07 PT 26.0 H INR 2.8 H APTT 41.3 H VBG pH 7.35 VBG pCO2 55 H VBG pO2 27 VBG HCO3 31 H VBG Total CO2 28 VBG O2 Saturation 45 VBG Base Excess 5 H VBG Lactate 1.6 H Sodium 137 Potassium 4.3 Chloride 99 Carbon Dioxide 30.4 Anion Gap 7.6 BUN 15 Creatinine 1.2 H Est GFR (CKD-EPI 2020) 45.19 Glucose 125 H Calcium 9.8 Magnesium 2.2 Total Bilirubin 0.8 AST 27 ALT 22 Alkaline Phosphatase 164 H Troponin I < 50 < 50 NT-Pro-B Natriuret Pep 2802 H Total Protein 9.0 H Albumin 3.1 L COVID-19 Source Nasopharynx SARS-CoV-2 (PCR) Negative Influenza Type A (PCR) Negative Influenza Type B (PCR) Negative RSV (PCR) Negative Last Vital Signs Temp 36.6 C 10/30/23 16:56 Pulse 139 H 10/30/23 21:46 Resp 34 H 10/30/23 21:50 BP 141/82 H 10/30/23 21:46 Pulse Ox 91 L 10/30/23 21:50 Time Spent Time spent with Patient: >75 minutes Time was spent: preparing to see the patient(eg.review tests), obtaining and/or reviewing separately otained hiistory, ordering medications,tests, procedures, referring, communicating with other health resident care assistant, indepentently interpreting results and counseling the patient
[2023-10-30 23:34] LABS: TSH (W/Ref FT4) 4.01 uIU/mL (0.36-3.74)
[2023-10-30 23:50] LABS: FREE T4 1.11 ng/dL (0.76-1.46)
[2023-10-31] VITALS (11 sets, daily range): BP systolic 103–132; BP diastolic 62–78; PULSE 86–105; RESP 2–28; TEMP 35.8–37.7; O2SAT 92–97
[2023-10-31] MEDS: Albuterol/Ipratropium 3 ML UPD VIAL UPD ×4 (00:28→23:16)
[2023-10-31] MEDS: Acetaminophen 325 MG TAB PO ×2 (01:22→20:30)
[2023-10-31] MEDS: Metoprolol 12.5 MG TAB PO ×5 (01:29→23:49)
[2023-10-31] MEDS: Normal Saline Flush 10 ML SYR IVP ×5 (02:11→23:50)
[2023-10-31] MEDS: DOXYCYCLINE 100 MG in Normal Saline 100 ML IVPB ×3 (02:12→21:45)
[2023-10-31] MEDS: Levothyroxine 100 MCG TAB PO (06:00)
[2023-10-31 06:55] LABS: HCT 37.8 % (36.0-46.0); HGB 12.2 g/dL (11.2-15.7); MCH 32.3 pg (27.0-33.0); MCHC 32.3 % (32.0-36.0); MCV 100 fL (80-95); MPV 10.2 fL (8.0-11.0); Platelet Count 291 10^3/uL (130-400); RBC 3.78 10^6/uL (3.93-5.22); RDW 13.4 % (11.7-14.6); RDW-SD 50.1 fL
[2023-10-31 06:59] LABS: INR 2.4 (0.9-1.1); Prothrombin Time 22.3 sec (9.1-11.1)
[2023-10-31 07:19] LABS: ALT 19 U/L (14-59); AST 24 U/L (15-37); Albumin 2.6 g/dL (3.4-5.0); Alkaline Phosphatase 140 U/L (46-116); Anion Gap 9.7 mmol/L (3-11); BUN 23 mg/dL (7-18); Bilirubin, Total 0.6 mg/dL (0.2-1.0); CO2 28.3 mmol/L (21.0-32.0); CREATININE 1.4 mg/dL (0.55-1.02); Calcium 9.1 mg/dL (8.5-10.1); Chloride 101 mmol/L (98-107); Estimated GFR 37.56 (mL/min/1.73m2); Glucose 154 mg/dL (74-106); Potassium 3.7 mmol/L (3.5-5.1); Sodium 139 mmol/L (136-145); Total Protein 7.8 g/dL (6.4-8.2)
[2023-10-31] MEDS: Cyanocobalamin 100 MCG TABLET 1000 MCG PO (08:31)
[2023-10-31] MEDS: Cholecalciferol (Vitamin D3) 1,000 UNIT TAB 1000 UNITS PO (08:31)
[2023-10-31] MEDS: Magnesium Oxide 400 MG TAB PO ×2 (08:31→20:31)
[2023-10-31] MEDS: buPROPion-CR 100 MG TABCR PO ×2 (08:31→20:30)
[2023-10-31] MEDS: Losartan 50 MG TAB PO (08:32)
[2023-10-31] MEDS: Potassium Chloride 10 MEQ CAPCR 20 MEQ PO (08:32)
[2023-10-31] MEDS: Furosemide 40 MG/4 ML VIAL IVP ×2 (08:33→16:10)
[2023-10-31] MEDS: Famotidine 20 MG TAB PO (08:33)
[2023-10-31] MEDS: Chlorthalidone 25 MG TAB PO (08:33)
--- NOTE | 2023-10-31 09:21 | PGE_ITS ---
Date of Service Date of service: 10/31/23 Time of Service: 09:21 Assessment and Plan Assessment and plan (1) Acute exacerbation of CHF (congestive heart failure): Start date: 10/30/23 Assessment and plan: Last echocardiogram in May 2022 with LVEF 40-45% with mild global hypokinesis: US echocardiogram for Thursday 11/02 and cardiology consult Continue Lasix IV BID BMP and mag in AM IV morphine changed to oral liquid form PRN for cough continue Tessalon pearls Strict I& O Melatonin at bedtime Qualifiers: Heart failure type: combined systolic and diastolic Qualified Code(s): I50.43 - Acute on chronic combined systolic (congestive) and diastolic (congestive) heart failure (2) Chronic obstructive lung disease: Status: Chronic Assessment and plan: Increased cough and sputum production and change in color Continue: IV doxycycline Nebulizer treatments IV solu-medrol 40mg Q 8 changed to oral prednisone 40 mg BID Start mucinex IS and Acapella Qualifiers: COPD type: unspecified COPD Qualified Code(s): J44.9 - Chronic obstructive pulmonary disease, unspecified (3) Atrial fibrillation: Status: Chronic Assessment and plan: Presented with atrial fibrillation with rapid ventricular response (RVR) Continue metorprolol tartrate 12.5 mg Q6, additional PRN dose of 2.5 mg available but most likely will not need as she remains A-Fib with HR mid 80's to low 100's. Previous history of bradycardia and metoprolol at a higher dosing was held prior to this admission with RVR. Will monitor for baradycardia and transition to metropolol succinate at the appropriated dose after 24 hours Hold home Bisoprolol On Warfarin for anticoagulation -INR in AM Qualifiers: Atrial fibrillation type: persistent (not longstanding) Qualified Code(s): I48.19 - Other persistent atrial fibrillation (4) Hypertension: Assessment and plan: Continue home antihypertensive regimen Qualifiers: Hypertension type: primary hypertension Qualified Code(s): I10 - Essential (primary) hypertension (5) Contraindication to deep vein thrombosis (DVT) prophylaxis: Status: Acute Assessment and plan: Patient is on Coumadin for anticoagulation in the setting of A-Fib (6) Discharge planning issues: Status: Acute Assessment and plan: None at this time but 3 weeks ago and might need support in the community Subjective Subjective Interval history since last seen: Patient reports feeling better and breathing better, decreased cough, having difficulty sleeping, eating and drinking well, voiding without difficulty and moving her bowels. The patient denies lightheadedness, chills, fever, night sweats, nausea,vomiting or diarrhea, and dysuria. Exam Narrative Exam Narrative: General: Age-appropriate appearance, morbidly obese, sitting in chair without acute distress, pleasant and cooperative during the interview. NEURO: She is alert and oriented x 3, no focal neurodeficit. HEENT: Normocephalic, without apparent trauma. Neck: No JVD. Lungs: Expiratory wheezing to bilateral upper posterior and anterior lobes; decreased breath sounds to bilateral bases with positive air movement; O2 to 2 L via nasal cannula in progress as per home regimen Heart: Atrial fibrillation on telemetry heart rate 89-93 w/o appreciable murmur. Abdomen: large, soft , nontender, bowel sounds are present : Early catheter in place , no hematuria. Extremities:Trace edema to lower ext; L > R; No cyanosis or clubbing. Good cap refil< 3 sec Skin:large pannus with erythematous moist rash to pelvic area and groin, no other rash or lesion to exposed skin Psych: Normal affect and mood with pressured speech. 3 weeks ago and has lost in-laws and friends in past 6 months. Objective Last Vital Signs Temp 35.8 C L 10/31/23 08:02 Pulse 93 H 10/31/23 08:02 Resp 20 10/31/23 08:02 BP 126/74 10/31/23 08:02 Pulse Ox 96 10/31/23 08:02 Laboratory Results - last 24 hr 10/30/23 10/30/23 10/31/23 17:10 20:02 06:13 WBC 10.17 8.80 RBC 4.01 3.78 L Hgb 13.0 12.2 Hct 40.9 37.8 MCV 102 H 100 H MCH 32.4 32.3 MCHC 31.8 L 32.3 RDW 13.5 13.4 Plt Count 288 291 MPV 9.9 10.2 Immature Gran % 0.3 Neutrophils % 77.8 Lymphocytes % 11.1 Monocytes % 8.5 Eosinophils % 1.6 Basophils % 0.7 Nucleated RBC % 0.0 Absolute Neutrophils 7.92 H Absolute Lymphocytes 1.13 L Absolute Monocytes 0.86 H Absolute Eosinophils 0.16 Absolute Basophils 0.07 PT 26.0 H 22.3 H INR 2.8 H 2.4 H APTT 41.3 H VBG pH 7.35 VBG pCO2 55 H VBG pO2 27 VBG HCO3 31 H VBG Total CO2 28 VBG O2 Saturation 45 VBG Base Excess 5 H VBG Lactate 1.6 H Sodium 137 139 Potassium 4.3 3.7 Chloride 99 101 Carbon Dioxide 30.4 28.3 Anion Gap 7.6 9.7 BUN 15 23 H Creatinine 1.2 H 1.4 H Est GFR (CKD-EPI 2020) 45.19 37.56 Glucose 125 H 154 H Calcium 9.8 9.1 Magnesium 2.2 2.0 Total Bilirubin 0.8 0.6 AST 27 24 ALT 22 19 Alkaline Phosphatase 164 H 140 H Troponin I < 50 < 50 NT-Pro-B Natriuret Pep 2802 H Total Protein 9.0 H 7.8 Albumin 3.1 L 2.6 L TSH 4.01 H Free T4 1.11 COVID-19 Source Nasopharynx SARS-CoV-2 (PCR) Negative Influenza Type A (PCR) Negative Influenza Type B (PCR) Negative RSV (PCR) Negative Time Spent with Patient Time Spent with Patient: >50 minutes Time was spent: preparing to see the patient(eg.review tests), obtaining and/or reviewing separately otained hiistory, ordering medications,tests, procedures, referring, communicating with other health post anesthesia care unit nurse, indepentently interpreting results, counseling the patient and care coordination
--- NOTE | 2023-10-31 09:40 | INITIAL_ITS ---
Date of service: 10/31/23 Time of Service: 09:40 Care Management Initial Assmt Initial Assessment REASON FOR HOSPITALIZATION:: CHF and COPD exacerbation PREVIOUS FUNCTIONAL STATUS/SOCIAL/FAMILY SUPPORTS:: Celeste is and lives alone in [place]. Her about a month ago from complications of Diabetes and PVD. Celeste had 3 children but her oldest of bone cancer and her other 2 children live out of state. 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 She is independent at baseline and does not receive any community services. CURRENT FUNCTIONAL STATUS:: Celeste was sitting up in bed when CM met with her. She was open to conversation and engaged easily with CM. Celeste shared that the past 2 years have been very difficult for her. She lost her younger sister in July and her about 3 weeks ago. For the past year her had been in and out of hospitals. He had bypass surgery and was treated for complications from diabetes and peripheral vascular disease which required the amputation of all of the toes on his right foot. Her had also developed dementia which complicated his care. In addition to those 2 losses, another close relative was murdered. Celeste has a [id number], grandchildren and great grandchildren in [place]. She has just put her house on the market and intends to move to [place] to be close to them. ADVANCE DIRECTIVES:: DPOA - Valentin Carpenter listed as DPOA () Has patient been provided with info about the portal/API?: Yes Did the patient sign up for the portal?: No CODE STATUS:: DNR/DNI INSURANCE COVERAGE / FINANCIAL ISSUES:: [facility] Medicare Replacement CURRENT HOME/COMMUNITY SERVICES/EQUIPMENT:: home oxygen at 2L/min PRIMARY CARE PHYSICIAN:: Ginny Scherer POTENTIAL DISCHARGE NEEDS:: follow up with community providers: PCP, Cardiology and Pulmonology PATIENT/FAMILY EDUCATION NEEDS:: Review of discharge instructions, activity, limitations, follow up plan, discuss Ask Me Three TRANSPORTATION:: via private vehicle with family PLAN:: Anticipate Celeste will be discharged home, possibly with new home health services. She will follow up with community providers and plan of care and transport with family. CM will follow and continue to assess for discharge needs. 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) Acute renal failure (ARF) (Acute) Shortness of breath (Acute) Fatigue (Acute) Pulmonary arterial hypertension (Acute) Falls frequently (Acute) Hypomagnesemia (Acute) CHF (congestive heart failure) (Chronic) Status post total right knee replacement (Acute 05/30/20) Abnormal breast finding (Acute 01/19/18) Adenoma of colon (Acute 01/19/18) Bruising (Acute 01/19/18) Chronic depression (Acute 01/19/18) Degenerative arthritis of right knee (Chronic 04/23/15) Disorder of vulva (Acute 01/19/18) Edema leg (Acute 01/19/18) Obesity (Acute 07/11/13) Osteoarthritis (Acute 07/11/13) Other forms of dyspnea (Acute 01/19/18) Overactive bladder (Acute 01/19/18) Primary osteoarthritis of both knees (Chronic 10/29/15) Synvisc injection: 11/04/2019; 05/03/2019 Shortness of breath (Acute 01/19/18) Tendinitis of left shoulder (Acute 01/07/16) Rectal hemorrhage (Acute) Acute on chronic diastolic heart failure (Acute) Chest pain (Acute) Atrial fibrillation (Chronic) SOB (shortness of breath) (Acute) CHF (congestive heart failure) (Chronic) Cough (Acute) Right rotator cuff tendonitis (Acute) Medical History Noncompliance with medication regimen Acute exacerbation of CHF (congestive heart failure) History of cardioversion Cataracts, bilateral Tendonitis surgery r arm Depression Osteoarthritis Morbid obesity H/O adenomatous polyp of colon Hypothyroidism (07/11/13) Essential hypertension (07/11/13) Chronic obstructive lung disease (07/11/13) AF (paroxysmal atrial fibrillation) (01/19/18) Hypertension Surgical History History of carpal tunnel release r wrist H/O: hysterectomy H/O colonoscopy x2 Abdominal hysterectomy Family History Other Heart disease Social History Smoking/Tobacco Use Status: Former Tobacco Use Smoking risk assessment performed?: Yes Alcohol Intake: former Drug use: Never Substance use type: does not use Housing: other Current gender identity: female Do you feel safe at home: Yes Do you feel safe in your relationship?: Yes Additional Social history: Lives in [place] with Ed who is starting to have cognitive problems. They have financial issues SDOH(Care Management) Screening Will the Patient Participate in the Screening?: Yes Do you worry about having a steady place to live?: no Problems where you live: pests such as bugs, ants or mice and water leaks In the past 12 months, have you had to go without electric, gas, oil or water in your home?: yes Have you or anyone in your house had to go without enough food to eat?: no Has lack of transportation kept you from medical appointments or from doing things needed for daily living?: yes Has anyone in your support network made you feel unsafe for any reason?: no Health Related Social Needs Health related social needs: inadequate housing(Z59.1), transportation insecurity(Z59.82) and material hardship(utilities)(Z59.87)
[2023-10-31] MEDS: Albuterol 2.5 MG/3 ML INH SOLN VIAL UPD (16:08)
[2023-10-31] MEDS: Benzonatate 100 MG CAP PO (16:10)
[2023-10-31] MEDS: predniSONE 20 MG TAB 40 MG PO (16:10)
[2023-10-31] MEDS: Nystatin POWDER 15 GM JAR TP (20:37)
[2023-10-31] MEDS: Latanoprost 0.005% 2.5 ML BTL OP (20:38)
[2023-10-31] MEDS: Melatonin 3 MG TAB PO (21:44)
[2023-11-01] VITALS (7 sets, daily range): BP systolic 108–133; BP diastolic 60–81; PULSE 72–100; RESP 9–20; TEMP 36.6–37.4; O2SAT 94–98
[2023-11-01] MEDS: Benzonatate 100 MG CAP PO ×4 (00:18→21:09)
[2023-11-01] MEDS: Albuterol 2.5 MG/3 ML INH SOLN VIAL UPD (00:18)
[2023-11-01] MEDS: Albuterol/Ipratropium 3 ML UPD VIAL UPD ×3 (05:08→18:08)
[2023-11-01] MEDS: Levothyroxine 100 MCG TAB PO (05:09)
[2023-11-01] MEDS: Metoprolol 12.5 MG TAB PO ×3 (05:09→17:12)
[2023-11-01 06:46] LABS: Abs Immature Grans 0.04 10^3/uL (0.0-0.06); Absolute Monocyte Count 1.08 10^3/uL (0.1-0.8); Basophils % 0.2; HCT 38.2 % (36.0-46.0); HGB 12.5 g/dL (11.2-15.7); Immature Grans % 0.3; Lymphocytes % 5.7; MCH 32.3 pg (27.0-33.0); MCHC 32.7 % (32.0-36.0); MCV 99 fL (80-95); MPV 9.9 fL (8.0-11.0); Monocytes % 8.4; Neutrophils % 85.4; Platelet Count 333 10^3/uL (130-400); RBC 3.87 10^6/uL (3.93-5.22); RDW 13.4 % (11.7-14.6); RDW-SD 48.3 fL
[2023-11-01 06:48] LABS: Absolute Basophil Count 0.03 10^3/uL (0.0-0.2); Absolute Lymphocyte Count 0.74 10^3/uL (1.2-3.4); Absolute Neutrophil Count 11.02 10^3/uL (1.2-6.7)
[2023-11-01 06:51] LABS: INR 1.8 (0.9-1.1); Prothrombin Time 17.5 sec (9.1-11.1)
[2023-11-01 06:55] LABS: BUN 46 mg/dL (7-18); CREATININE 1.5 mg/dL (0.55-1.02); Calcium 9.4 mg/dL (8.5-10.1); Chloride 96 mmol/L (98-107); Estimated GFR 34.58 (mL/min/1.73m2); Glucose 137 mg/dL (74-106); Potassium 3.2 mmol/L (3.5-5.1); Sodium 138 mmol/L (136-145)
[2023-11-01] MEDS: Furosemide 40 MG/4 ML VIAL IVP ×2 (07:31→15:47)
[2023-11-01] MEDS: Cyanocobalamin 100 MCG TABLET 1000 MCG PO (07:31)
[2023-11-01] MEDS: Normal Saline Flush 10 ML SYR IVP ×3 (07:31→21:11)
[2023-11-01] MEDS: predniSONE 20 MG TAB 40 MG PO ×2 (07:31→17:12)
[2023-11-01] MEDS: Cholecalciferol (Vitamin D3) 1,000 UNIT TAB 1000 UNITS PO (07:32)
[2023-11-01] MEDS: Chlorthalidone 25 MG TAB PO (07:32)
[2023-11-01] MEDS: buPROPion-CR 100 MG TABCR PO ×2 (07:32→21:09)
[2023-11-01] MEDS: Losartan 50 MG TAB PO (07:32)
[2023-11-01] MEDS: Magnesium Oxide 400 MG TAB PO ×2 (07:32→21:10)
[2023-11-01] MEDS: Omeprazole 20 MG CAPCR PO (07:32)
[2023-11-01] MEDS: Potassium Chloride 10 MEQ CAPCR 20 MEQ PO (07:32)
[2023-11-01] MEDS: Nystatin POWDER 15 GM JAR TP ×2 (07:52→21:11)
[2023-11-01] MEDS: DOXYCYCLINE 100 MG in Normal Saline 100 ML IVPB ×2 (09:35→21:12)
--- NOTE | 2023-11-01 11:22 | PGE_ITS ---
Date of Service Date of service: 11/01/23 Time of Service: 11:22 Assessment and Plan Assessment and plan (1) Acute exacerbation of CHF (congestive heart failure): Assessment and plan: Continue Lasix IV BID BMP and mag in AM IV morphine changed to oral liquid form PRN for cough continue Tessalon perles Strict I& O Melatonin at bedtime Qualifiers: Heart failure type: combined systolic and diastolic Qualified Code(s): I50.43 - Acute on chronic combined systolic (congestive) and diastolic (congestive) heart failure (2) Chronic obstructive lung disease: Status: Chronic Assessment and plan: Worsening symptoms recently with increased sputum production and diffuse wheeze upon presentation with her CHF exacerbation. She did not respond to nebulizers and will be treated with more frequent nebulizer treatments as well as IV Solu- Medrol. Because of her increased production of sputum and change in color at the beginning of her illness, she will be placed on doxycycline IV. Continue: IV doxycycline Nebulizer treatments IV solu-medrol 40mg Q 8 changed to oral prednisone 40 mg BID Start mucinex IS and Acapella Qualifiers: COPD type: unspecified COPD Qualified Code(s): J44.9 - Chronic obstructive pulmonary disease, unspecified (3) Atrial fibrillation: Status: Chronic Assessment and plan: Presented with atrial fibrillation with rapid ventricular response (RVR) Continue metorprolol tartrate 12.5 mg Q6, additional PRN dose of 2.5 mg available but most likely will not need as she remains A-Fib with HR mid 80's to low 100's. Previous history of bradycardia and metoprolol at a higher dosing was held prior to this admission with RVR. Will monitor for baradycardia and transition to metropolol succinate at the appropriated dose after 24 hours Hold home Bisoprolol On Warfarin for anticoagulation -INR in AM Qualifiers: Atrial fibrillation type: persistent (not longstanding) Qualified Code(s): I48.19 - Other persistent atrial fibrillation (4) Hypertension: Assessment and plan: Continue home antihypertensive regimen Qualifiers: Hypertension type: primary hypertension Qualified Code(s): I10 - Essential (primary) hypertension (5) Contraindication to deep vein thrombosis (DVT) prophylaxis: Status: Acute Assessment and plan: Patient is on Coumadin for anticoagulation in the setting of A-Fib (6) Discharge planning issues: Status: Acute Assessment and plan: None at this time but 3 weeks ago and might need support in the community Subjective Subjective Patient reports: feels better, tolerating liquids well and tolerating a regular diet Interval history since last seen: ongoing dry hacky cough. diuresing well, urine light yellow Exam Const General: cooperative, healthy appearing, comfortable and no acute distress Nutritional Appearance: obese Orientation: alert, awake and oriented x3 HENMT Head: normal to inspection and normocephalic Mouth: oral mucosae normal Eyes General: appearance normal, both eyes and all related structures Neck Neck: normal visual inspection and no JVD Chest Chest: normal inspection of the chest Resp Effort & Inspection: normal respiratory effort Auscultation: clear to auscultation bilaterally and diminished lung sounds Cardio Rate: bradycardic Rhythm: regular rhythm GI Inspection: normal to inspection Palpation: soft Skin General skin exam: no rashes or lesions noted and other (chronic discoloration to bilateral lower ) Neuro General: patient alert, patient awake and patient oriented x3 Extrem General: normal to inspection and no pedal edema Psych Mental Status: mental status grossly normal Speech and Movement: speech and movement normal Mood: congruent mood Affect: normal affect Objective Last Vital Signs Temp 36.6 C 11/01/23 07:29 Pulse 100 H 11/01/23 07:29 Resp 18 11/01/23 07:29 BP 132/81 11/01/23 07:29 Pulse Ox 95 11/01/23 07:29 Laboratory Results - last 24 hr 10/31/23 11/01/23 Unknown 06:12 WBC 12.90 H RBC 3.87 L Hgb 12.5 Hct 38.2 MCV 99 H MCH 32.3 MCHC 32.7 RDW 13.4 Plt Count 333 MPV 9.9 Immature Gran % 0.3 Neutrophils % 85.4 Lymphocytes % 5.7 Monocytes % 8.4 Eosinophils % 0.0 Basophils % 0.2 Nucleated RBC % 0.0 Absolute Neutrophils 11.02 H Absolute Lymphocytes 0.74 L Absolute Monocytes 1.08 H Absolute Eosinophils 0.00 Absolute Basophils 0.03 PT 17.5 H INR 1.8 H Sodium 138 Potassium 3.2 L Chloride 96 L Carbon Dioxide 32.0 Anion Gap 10.0 BUN 46 H Creatinine 1.5 H Est GFR (CKD-EPI 2020) 34.58 Glucose 137 H Calcium 9.4 Magnesium 2.0 Add-On Test Request TNP Time Spent with Patient Time Spent with Patient: 35-49 minutes Time was spent: preparing to see the patient(eg.review tests), obtaining and/or reviewing separately otained hiistory, ordering medications,tests, procedures, indepentently interpreting results and counseling the patient
[2023-11-01] MEDS: Melatonin 3 MG TAB PO (21:09)
[2023-11-01] MEDS: guaiFENesin 600 MG TABCR PO (21:10)
[2023-11-01] MEDS: Latanoprost 0.005% 2.5 ML BTL OP (21:19)
[2023-11-02] VITALS (14 sets, daily range): BP systolic 125–142; BP diastolic 73–93; PULSE 90–111; RESP 2–24; TEMP 35.9–36.7; O2SAT 89–96
[2023-11-02] MEDS: Albuterol/Ipratropium 3 ML UPD VIAL UPD ×4 (00:13→23:47)
[2023-11-02] MEDS: Metoprolol 12.5 MG TAB PO ×4 (00:14→17:42)
[2023-11-02] MEDS: Levothyroxine 100 MCG TAB PO (05:22)
[2023-11-02] MEDS: Acetaminophen 325 MG TAB PO ×3 (05:22→20:33)
[2023-11-02] MEDS: Benzonatate 100 MG CAP PO ×2 (05:22→20:34)
[2023-11-02 07:35] LABS: Abs Immature Grans 0.07 10^3/uL (0.0-0.06); Absolute Lymphocyte Count 1.03 10^3/uL (1.2-3.4); Absolute Monocyte Count 1.29 10^3/uL (0.1-0.8); Basophils % 0.1; HCT 39.9 % (36.0-46.0); HGB 12.9 g/dL (11.2-15.7); Immature Grans % 0.5; Lymphocytes % 7.6; MCH 31.8 pg (27.0-33.0); MCHC 32.3 % (32.0-36.0); MCV 98 fL (80-95); MPV 9.7 fL (8.0-11.0); Monocytes % 9.5; Neutrophils % 82.3; Platelet Count 384 10^3/uL (130-400); RBC 4.06 10^6/uL (3.93-5.22); RDW 13.3 % (11.7-14.6); RDW-SD 48.7 fL; WBC 13.57 10^3/uL (4.4-10.8)
[2023-11-02 07:36] LABS: Absolute Basophil Count 0.01 10^3/uL (0.0-0.2); Absolute Neutrophil Count 11.17 10^3/uL (1.2-6.7)
[2023-11-02 07:50] LABS: Anion Gap 7.7 mmol/L (3-11); BUN 63 mg/dL (7-18); CO2 33.3 mmol/L (21.0-32.0); CREATININE 1.8 mg/dL (0.55-1.02); Calcium 9.4 mg/dL (8.5-10.1); Chloride 97 mmol/L (98-107); Estimated GFR 27.78 (mL/min/1.73m2); Glucose 115 mg/dL (74-106); Potassium 3.2 mmol/L (3.5-5.1); Sodium 138 mmol/L (136-145)
--- NOTE | 2023-11-02 08:00 | DI.US_ITS ---
APPROVED REPORT EXAM: Comprehensive 2D, Doppler, and color-flow Echocardiogram Patient Location: In-Patient Room/Bed: [address] Bus Operator: Juana Franks RDCS (AE) Indications: CHF exacerbation, A Fib with RVR Other Information Study Quality: Adequate Conclusion Mild concentric left ventricular hypertrophy. Ejection fraction is 40 to 45%. There are no segmenta l wall motion abnormalities. Patient is in atrial fibrillation with [id number] variation Normal right ventricular size and systolic function Moderately dilated right atrium. Left atrium is top normal size Trileaflet aortic valve without stenosis or regurgitation Normal mitral valve mild to moderate regurgitation Normal tricuspid valve with moderate regurgitation. Estimated right ventricular systolic pressure is 26 mmHg Wall motion Left Ventricle The left ventricle is normal size. Left ventricular systolic function is mild to moderately decreased . Mild concentric left ventricular hypertrophy. There is global hypokinesis of the left ventricle. Th ere is no ventricular septal defect visualized. LVEF is 43%. Right Ventricle Right ventricle is grossly normal in size. Right ventricular systolic function is grossly normal. Atria The left atrium size is top normal size Right atrium is moderately dilated. The interatrial septum is intact with no evidence for an atrial septal defect. Aortic Valve The aortic valve is normal in structure. Aortic valve is trileaflet. There is no aortic valvular sten osis. No aortic regurgitation is present. Mitral Valve The mitral valve is normal in structure. No evidence of mitral valve stenosis. Mild to moderate mitr al regurgitation. Tricuspid Valve The tricuspid valve is normal in structure. There is no tricuspid valve stenosis. Moderate tricuspid regurgitation. The RVSP is 26.4mmHg. Pulmonic Valve The pulmonary valve is normal in structure. There is no pulmonic valvular stenosis. Trace pulmonic re gurgitation. Great Vessels The aortic root is normal in size. The ascending aorta is mildly dilated. IVC is normal in size and c ollapses >50% with inspiration. Pericardium There is no pericardial effusion. 2D Dimensions IVSD d PLAX 1.10 cm F: 0.6-1.0 Ao Root d 2.59 cm F: 2.7 - 3.3 LVPW d PLAX 1.10 cm F: 0.6 - 1.0 Ao Asc Diam d 3.49 cm F: 2.3 - 3.1 LVID d PLAX 5.12 cm F: 3.8 - 5.2 LVDs 4.04 cm F: 2.2 - 3.5 LV EF Teichholz 42.5 % FS 21.04 % LV EDV (Teich) 124.7 mL LV ESV (Teich) 71.7 mL Auto EF LV EDV A4C 79.2 mL LV EDV A2C 77.3 mL LV EDV BP 78.7 mL LV ESV A4C 47.3 mL LV ESV A2C 44.4 mL LV ESV BP 45.8 mL LVEF(%) A4C 40.3 % LVEF(%) A2C 42.6 % LVEF(%) BP 41.8 % LV SV A4C 31.9 ml LV SV A2C 32.9 ml LV SV BP 32.9 ml LV CO A4C 2.7 L/min LV CO A2C 3.1 L/min LV CO BP 2.9 L/min HR A4C 83.92 BPM HR A2C 95.45 BPM LV EDV Index (BP) LV Strain Long Pk Overal Avg (s) 8.16 LA Volume LA Length A4C 6.0 cm LA Length A2C 5.8 cm LA Area A4C s 21.42 cm2 LA Area A2C s 18.58 cm2 LA Vol A4C A-L 64.91 mL LA Vol A2C A-L 50.38 mL LA Vol Biplane A-L 58.1 mL LA Vol/BSA A4C A-L LA Vol/BSA A2C A-L LA Vol/BSA BP A-L 28.2 mL/m2 LA Vol A4C MOD 60.8 mL LA Vol A2C MOD 47.1 mL LA Vol BP MOD 54.3 mL RA Volume RA Area A4C 20.1 cm2 RA ESV A4C (A-L) 60.1mL RA Vol/BSA A4C A-L RA Length A4C 5.7 cm RA ESV A4C (MOD) 57.7mL LV Diastology MV E' medial 0.101 (>0.07 m/s) MV E Vmax 1.09 (0.4-1.3 m/s) MV E' lateral 0.111 (>0.1 m/s) Aortic Valve AoV Vmax 1.25 m/s LVOT Vmax 0.90 m/s AoV Peak Grad 6.2 mmHg LVOT Peak Grad 3.3 mmHg AoV Area (Vmax) 2.07 cm2 LVOT VTI 0.160 m AoV VTI 0.228 m LVOT Mean Grad 1.7 mmHg AoV Mean Jsoe. 0.91 m/s LVOT SV 45.65 mL AoV Mean Grad 3.7 mmHg LVOT Diam s 1.90 cm AoV Area (VTI) 2.00 cm2 Velocity Ratio 0.72 Mitral Valve MV Vmax TIPS 1.12 m/s MV Mean Grad 1.7 (<2mmHg) MV Area PHT 3.36 cm2 MV VTI 0.269 m Pulmonary Valve PV Vmax 0.61 (0.5-1.5 m/s) RVOT Vmax 0.61 m/s PV Peak Grad 1.5 mmHg RVOT Peak Gr. 1.5 mmHg PV Mean Jose 0.51 m/s RVOT VTI 0.113 m PV Mean Grad 1.1 mmHg RVOT Mean Gr. 0.8 mmHg Tricuspid Valve RA Pressure 3.00 mmHg TR Vmax 2.42 m/s TV S' 0.08 m/s TR Peak Grad 23.3 mmHg RVSP (TR) 26.4 mmHg
[2023-11-02 08:17] LABS: INR 2.1 (0.9-1.1); Prothrombin Time 19.4 sec (9.1-11.1)
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
[2023-11-02] MEDS: Furosemide 40 MG/4 ML VIAL IVP (09:22)
[2023-11-02] MEDS: Nystatin POWDER 15 GM JAR TP ×2 (09:23→20:35)
[2023-11-02] MEDS: Cyanocobalamin 100 MCG TABLET 1000 MCG PO (09:23)
[2023-11-02] MEDS: Chlorthalidone 25 MG TAB PO (09:23)
[2023-11-02] MEDS: Normal Saline Flush 10 ML SYR IVP ×2 (09:23→20:34)
[2023-11-02] MEDS: Potassium Chloride 10 MEQ CAPCR 20 MEQ PO ×3 (09:24→16:57)
[2023-11-02] MEDS: buPROPion-CR 100 MG TABCR PO ×2 (09:24→20:35)
[2023-11-02] MEDS: Losartan 50 MG TAB PO (09:24)
[2023-11-02] MEDS: Cholecalciferol (Vitamin D3) 1,000 UNIT TAB 1000 UNITS PO (09:24)
[2023-11-02] MEDS: Omeprazole 20 MG CAPCR PO (09:24)
[2023-11-02] MEDS: guaiFENesin 600 MG TABCR PO ×2 (09:24→20:36)
[2023-11-02] MEDS: predniSONE 20 MG TAB 40 MG PO ×2 (09:24→16:57)
[2023-11-02] MEDS: Magnesium Oxide 400 MG TAB PO ×2 (09:24→20:35)
[2023-11-02] MEDS: DOXYCYCLINE 100 MG in Normal Saline 100 ML IVPB (09:25)
--- NOTE | 2023-11-02 12:02 | W.PM.PROGNOT ---
Date of Service Date of service: 11/02/23 Time of Service: 12:03 Assessment and Plan Assessment and plan (1) Acute exacerbation of CHF (congestive heart failure): Assessment and plan: creatinine rising, will stop IV lasix and resume home torsemide tomorrow. discontinue green catheter BMP and mag in AM IV morphine changed to oral liquid form PRN for cough continue Tessalon perles Strict I& O Melatonin at bedtime Qualifiers: Heart failure type: combined systolic and diastolic Qualified Code(s): I50.43 - Acute on chronic combined systolic (congestive) and diastolic (congestive) heart failure (2) Chronic obstructive lung disease: Status: Chronic Assessment and plan: Continue: IV doxycycline Nebulizer treatments IV solu-medrol 40mg Q 8 changed to oral prednisone 40 mg BID, will need slow taper Start mucinex IS and Acapella Qualifiers: COPD type: unspecified COPD Qualified Code(s): J44.9 - Chronic obstructive pulmonary disease, unspecified (3) Atrial fibrillation: Status: Chronic Assessment and plan: rate controlled. Continue metorprolol tartrate 12.5 mg Q6, additional PRN dose of 2.5 mg available but most likely will not need as she remains A-Fib with HR mid 80's to low 100's. Previous history of bradycardia and metoprolol at a higher dosing was held prior to this admission with RVR. Will monitor for bradycardia and adjust as needed. Hold home Bisoprolol On Warfarin for anticoagulation -INR therapeutic, continue to monitor daily while hospitalized. Qualifiers: Atrial fibrillation type: persistent (not longstanding) Qualified Code(s): I48.19 - Other persistent atrial fibrillation (4) Hypertension: Assessment and plan: Continue home antihypertensive regimen Qualifiers: Hypertension type: primary hypertension Qualified Code(s): I10 - Essential (primary) hypertension (5) Contraindication to deep vein thrombosis (DVT) prophylaxis: Status: Acute Assessment and plan: Patient is on Coumadin for anticoagulation in the setting of A-Fib (6) Discharge planning issues: Status: Acute Assessment and plan: None at this time but 3 weeks ago and might need support in the community discussed with DR Cat Subjective Subjective Interval history since last seen: no fever, is eating and drinking well. Exam Const General: cooperative, healthy appearing, comfortable and no acute distress Nutritional Appearance: obese Orientation: alert, awake and oriented x3 HENMT Head: normal to inspection and normocephalic Mouth: oral mucosae normal Eyes General: appearance normal, both eyes and all related structures Neck Neck: normal visual inspection and no JVD Chest Chest: normal inspection of the chest Resp Effort & Inspection: normal respiratory effort Auscultation: clear to auscultation bilaterally and diminished lung sounds Cardio Rate: bradycardic Rhythm: regular rhythm GI Inspection: normal to inspection Palpation: soft Skin General skin exam: no rashes or lesions noted and other (chronic discoloration to bilateral lower ) Neuro General: patient alert, patient awake and patient oriented x3 Extrem General: normal to inspection and no pedal edema Psych Mental Status: mental status grossly normal Speech and Movement: speech and movement normal Mood: congruent mood Affect: normal affect Objective Last Vital Signs Temp 35.9 C L 11/02/23 07:56 Pulse 91 H 11/02/23 07:56 Resp 18 11/02/23 07:56 BP 142/93 H 11/02/23 07:56 Pulse Ox 96 11/02/23 07:56 Laboratory Results - last 24 hr 11/02/23 06:30 WBC 13.57 H RBC 4.06 Hgb 12.9 Hct 39.9 MCV 98 H MCH 31.8 MCHC 32.3 RDW 13.3 Plt Count 384 MPV 9.7 Immature Gran % 0.5 Neutrophils % 82.3 Lymphocytes % 7.6 Monocytes % 9.5 Eosinophils % 0.0 Basophils % 0.1 Nucleated RBC % 0.0 Absolute Neutrophils 11.17 H Absolute Lymphocytes 1.03 L Absolute Monocytes 1.29 H Absolute Eosinophils 0.00 Absolute Basophils 0.01 PT 19.4 H INR 2.1 H Sodium 138 Potassium 3.2 L Chloride 97 L Carbon Dioxide 33.3 H Anion Gap 7.7 BUN 63 H Creatinine 1.8 H Est GFR (CKD-EPI 2020) 27.78 Glucose 115 H Calcium 9.4 Time Spent with Patient Time Spent with Patient: 25-34 minutes Time was spent: preparing to see the patient(eg.review tests), obtaining and/or reviewing separately otained hiistory, ordering medications,tests, procedures, indepentently interpreting results and counseling the patient
--- NOTE | 2023-11-02 15:22 | W.CARDCONSUL ---
Date of service: 11/02/23 Time of Service: 15:23 Assessment and Plan Assessment and plan (1) CHF exacerbation: Status: Acute Assessment and plan: Patient's presentation is due to a combination of COPD and heart failure with moderately reduced ejection fraction. She is responding to diuretics as well as nebulizers. She needs her diuretic dose determined for discharge. Overall I have no specific other cardiac recommendation Qualifiers: Heart failure type: combined systolic and diastolic Qualified Code(s): I50.43 - Acute on chronic combined systolic (congestive) and diastolic (congestive) heart failure (2) Chronic obstructive lung disease: Status: Chronic Qualifiers: COPD type: unspecified COPD Qualified Code(s): J44.9 - Chronic obstructive pulmonary disease, unspecified (3) Atrial fibrillation: Status: Chronic Assessment and plan: Heart rate is fairly good. She takes warfarin for stroke prevention Qualifiers: Atrial fibrillation type: persistent (not longstanding) Qualified Code(s): I48.19 - Other persistent atrial fibrillation History of Present Illness History of Present Illness Chief Complaint: Cough and shortness of breath Narrative: This is 1 of several [facility] admissions for this 82-year-old woman who presented with cough, shortness of breath. She was admitted for treatment of atrial fibrillation with a fairly rapid rate and also congestive heart failure, exacerbation of COPD. Patient has been in the hospital approximately 3 days. She reports she feels better but still is coughing. She has been treated with doxycycline as well as intravenous diuretics and nebulizers. She has a history of mild to moderate LV dysfunction, EF approximately 45%. She has had longstanding atrial fibrillation. Her echocardiogram today shows very little in the way of interval change compared to 2021. Patient reports that her in September. She is in the process of moving to [place] to be closer to family. She has a lot of stress in this regard particularly as regards to logistics of moving and financial consideration She has chronically been maintained on warfarin, compliant with testing and follow-up. Review of Systems Cardiovascular Cardiovascular: Reports as per HPI, Denies chest pain, Reports irregular heart rhythm, Denies radiating jaw, neck or arm pain, Reports dyspnea, Reports dyspnea on exertion and Reports orthopnea Respiratory Respiratory: Reports dyspnea and Reports dyspnea on exertion PFSH All Active Problems (Updated 11/02/23 @ 15:29 by Neisha Rajan MD) Discharge planning issues (Acute) Contraindication to deep vein thrombosis (DVT) prophylaxis (Acute) Chronic obstructive lung disease (Chronic 07/11/13) CHF exacerbation (Acute) Osteoarthritis of left knee (Acute) Symptomatic bradycardia (Acute) Dizziness (Acute) Chronic kidney disease (Chronic) Heart failure with reduced ejection fraction (Acute) Sinus bradycardia (Acute) Leukocytosis (Acute) 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) Acute renal failure (ARF) (Acute) Shortness of breath (Acute) Fatigue (Acute) Pulmonary arterial hypertension (Acute) Falls frequently (Acute) Hypomagnesemia (Acute) CHF (congestive heart failure) (Chronic) Status post total right knee replacement (Acute 05/30/20) Abnormal breast finding (Acute 01/19/18) Adenoma of colon (Acute 01/19/18) Bruising (Acute 01/19/18) Chronic depression (Acute 01/19/18) Degenerative arthritis of right knee (Chronic 04/23/15) Disorder of vulva (Acute 01/19/18) Edema leg (Acute 01/19/18) Obesity (Acute 07/11/13) Osteoarthritis (Acute 07/11/13) Other forms of dyspnea (Acute 01/19/18) Overactive bladder (Acute 01/19/18) Primary osteoarthritis of both knees (Chronic 10/29/15) Synvisc injection: 11/04/2019; 05/03/2019 Shortness of breath (Acute 01/19/18) Tendinitis of left shoulder (Acute 01/07/16) Rectal hemorrhage (Acute) Acute on chronic diastolic heart failure (Acute) Chest pain (Acute) Atrial fibrillation (Chronic) SOB (shortness of breath) (Acute) CHF (congestive heart failure) (Chronic) Cough (Acute) Right rotator cuff tendonitis (Acute) Medical History Noncompliance with medication regimen Acute exacerbation of CHF (congestive heart failure) History of cardioversion Cataracts, bilateral Tendonitis surgery r arm Depression Osteoarthritis Morbid obesity H/O adenomatous polyp of colon Hypothyroidism (07/11/13) Essential hypertension (07/11/13) Chronic obstructive lung disease (07/11/13) AF (paroxysmal atrial fibrillation) (01/19/18) Hypertension Surgical History History of carpal tunnel release r wrist H/O: hysterectomy H/O colonoscopy x2 Abdominal hysterectomy Family History Other Heart disease Social History Smoking/Tobacco Use Status: Former Tobacco Use Smoking risk assessment performed?: Yes Alcohol Intake: former Drug use: Never Substance use type: does not use Housing: other Current gender identity: female Do you feel safe at home: Yes Do you feel safe in your relationship?: Yes Additional Social history: Lives in [place] with Ed who is starting to have cognitive problems. They have financial issues Exam Const Other: Obese looks a bit younger than stated age no acute distress Neck Other: Unable to assess JVP carotid pulsations are grossly normal no bruits Resp Other: Decreased breath sounds, prolonged expiratory phase, scattered expiratory wheeze Cardio Other: Irregularly irregular rate about 100 no murmur or gallop appreciated Skin Other: Warm and dry, bruising on forearms Extrem Other: Trace to 1+ edema Results Last Vital Signs Temp 36.3 C L 11/02/23 15:16 Pulse 94 H 11/02/23 15:16 Resp 18 11/02/23 15:16 BP 129/83 11/02/23 15:16 Pulse Ox 95 11/02/23 15:16 Labs 11/02/23 06:30 11/02/23 06:30 Labs: Laboratory Results - last 24 hr 11/02/23 06:30 WBC 13.57 H RBC 4.06 Hgb 12.9 Hct 39.9 MCV 98 H MCH 31.8 MCHC 32.3 RDW 13.3 Plt Count 384 MPV 9.7 Immature Gran % 0.5 Neutrophils % 82.3 Lymphocytes % 7.6 Monocytes % 9.5 Eosinophils % 0.0 Basophils % 0.1 Nucleated RBC % 0.0 Absolute Neutrophils 11.17 H Absolute Lymphocytes 1.03 L Absolute Monocytes 1.29 H Absolute Eosinophils 0.00 Absolute Basophils 0.01 PT 19.4 H INR 2.1 H Sodium 138 Potassium 3.2 L Chloride 97 L Carbon Dioxide 33.3 H Anion Gap 7.7 BUN 63 H Creatinine 1.8 H Est GFR (CKD-EPI 2020) 27.78 Glucose 115 H Calcium 9.4
[2023-11-02] MEDS: Latanoprost 0.005% 2.5 ML BTL OP (20:34)
[2023-11-02] MEDS: Albuterol 2.5 MG/3 ML INH SOLN VIAL UPD (20:55)
[2023-11-02] MEDS: Doxycycline Hyclate 100 MG CAP PO (21:47)
[2023-11-02] MEDS: Melatonin 3 MG TAB PO (23:45)
[2023-11-03] VITALS (11 sets, daily range): BP systolic 120–139; BP diastolic 69–85; PULSE 77–105; RESP 2–22; TEMP 36.1–36.7; O2SAT 93–100
[2023-11-03] MEDS: Metoprolol 12.5 MG TAB PO ×2 (00:13→06:39)
[2023-11-03] MEDS: Levothyroxine 100 MCG TAB PO (06:39)
[2023-11-03 07:20] LABS: Abs Immature Grans 0.08 10^3/uL (0.0-0.06); Absolute Basophil Count 0.02 10^3/uL (0.0-0.2); Absolute Monocyte Count 1.16 10^3/uL (0.1-0.8); Absolute Neutrophil Count 9.47 10^3/uL (1.2-6.7); Basophils % 0.2; HCT 39.9 % (36.0-46.0); HGB 12.9 g/dL (11.2-15.7); Immature Grans % 0.7; Lymphocytes % 8.4; MCH 31.6 pg (27.0-33.0); MCHC 32.3 % (32.0-36.0); MCV 98 fL (80-95); MPV 9.8 fL (8.0-11.0); Monocytes % 9.9; Neutrophils % 80.8; Platelet Count 390 10^3/uL (130-400); RBC 4.08 10^6/uL (3.93-5.22); RDW 13.4 % (11.7-14.6); RDW-SD 48.5 fL; WBC 11.72 10^3/uL (4.4-10.8)
[2023-11-03 07:22] LABS: Absolute Lymphocyte Count 0.98 10^3/uL (1.2-3.4)
[2023-11-03 07:25] LABS: INR 2.1 (0.9-1.1)
[2023-11-03 07:34] LABS: Anion Gap 6.5 mmol/L (3-11); BUN 64 mg/dL (7-18); CO2 34.5 mmol/L (21.0-32.0); CREATININE 1.6 mg/dL (0.55-1.02); Calcium 9.7 mg/dL (8.5-10.1); Chloride 100 mmol/L (98-107); Glucose 117 mg/dL (74-106); Potassium 3.9 mmol/L (3.5-5.1); Sodium 141 mmol/L (136-145)
[2023-11-03] MEDS: Omeprazole 20 MG CAPCR PO (09:28)
[2023-11-03] MEDS: predniSONE 20 MG TAB 40 MG PO ×2 (09:28→17:44)
[2023-11-03] MEDS: Doxycycline Hyclate 100 MG CAP PO ×2 (09:28→19:36)
[2023-11-03] MEDS: buPROPion-CR 100 MG TABCR PO ×2 (09:28→19:36)
[2023-11-03] MEDS: Chlorthalidone 25 MG TAB PO (09:28)
[2023-11-03] MEDS: Magnesium Oxide 400 MG TAB PO ×2 (09:28→19:35)
[2023-11-03] MEDS: Cyanocobalamin 500 MCG TAB 1000 MCG PO (09:28)
[2023-11-03] MEDS: Potassium Chloride 10 MEQ CAPCR 20 MEQ PO ×3 (09:28→17:44)
[2023-11-03] MEDS: Losartan 50 MG TAB PO (09:29)
[2023-11-03] MEDS: guaiFENesin 600 MG TABCR PO ×2 (09:29→19:36)
[2023-11-03] MEDS: Torsemide 20 MG TAB PO (09:29)
[2023-11-03] MEDS: Cholecalciferol (Vitamin D3) 1,000 UNIT TAB 1000 UNITS PO (09:29)
[2023-11-03] MEDS: Normal Saline Flush 10 ML SYR IVP (09:29)
[2023-11-03] MEDS: Nystatin POWDER 15 GM JAR TP (09:31)
[2023-11-03] MEDS: Metoprolol 25 MG TAB PO ×3 (11:14→22:59)
[2023-11-03] MEDS: Albuterol/Ipratropium 3 ML UPD VIAL UPD ×3 (12:08→22:57)
--- NOTE | 2023-11-03 12:41 | W.PM.PROGNOT ---
Date of Service Date of service: 11/03/23 Time of Service: 12:41 Assessment and Plan Assessment and plan (1) Acute exacerbation of CHF (congestive heart failure): Assessment and plan: creatinine stable now will resume home torsemide discontinued green catheter yesterday, voiding well continue to follow BMP and mag IV morphine changed to oral liquid form PRN for cough continue Tessalon perles Strict I& O Melatonin at bedtime Qualifiers: Heart failure type: combined systolic and diastolic Qualified Code(s): I50.43 - Acute on chronic combined systolic (congestive) and diastolic (congestive) heart failure (2) Chronic obstructive lung disease: Status: Chronic Assessment and plan: Continue: doxycycline day 4/5, now PO Nebulizer treatments oral prednisone 40 mg BID, decrease to 60 mg daily, will need slow taper continue mucinex IS and Acapella Qualifiers: COPD type: unspecified COPD Qualified Code(s): J44.9 - Chronic obstructive pulmonary disease, unspecified (3) Atrial fibrillation: Status: Chronic Assessment and plan: rate not well controlled. increase metorprolol tartrate 25 mg Q6, additional PRN dose of 2.5 mg available but most likely will not need as she remains A-Fib with HR mid 90-120 Previous history of bradycardia and metoprolol at a higher dosing was held prior to this admission with RVR. Will monitor for bradycardia and adjust as needed. Hold home Bisoprolol On Warfarin for anticoagulation -INR therapeutic, continue to monitor daily while hospitalized. Qualifiers: Atrial fibrillation type: persistent (not longstanding) Qualified Code(s): I48.19 - Other persistent atrial fibrillation (4) Hypertension: Assessment and plan: Continue home antihypertensive regimen Qualifiers: Hypertension type: primary hypertension Qualified Code(s): I10 - Essential (primary) hypertension (5) Contraindication to deep vein thrombosis (DVT) prophylaxis: Status: Acute Assessment and plan: Patient is on Coumadin for anticoagulation in the setting of A-Fib (6) Discharge planning issues: Status: Acute Assessment and plan: None at this time but 3 weeks ago and might need support in the community discussed with DR Mayers Subjective Subjective Patient reports: no new complaints, feels better, tolerating liquids well, tolerating a regular diet, shortness of breath (slowly improving) and afebrile Interval history since last seen: noted to be controlled to uncontrolled afib overnight 90-120's. no chest pain or increased SOB. still with dry cough Exam Const General: cooperative, healthy appearing, comfortable and no acute distress Nutritional Appearance: obese Orientation: alert, awake and oriented x3 HENMT Head: normal to inspection and normocephalic Mouth: oral mucosae normal Eyes General: appearance normal, both eyes and all related structures Neck Neck: normal visual inspection and no JVD Chest Chest: normal inspection of the chest Resp Effort & Inspection: normal respiratory effort Auscultation: clear to auscultation bilaterally and diminished lung sounds Cardio Rate: bradycardic Rhythm: regular rhythm GI Inspection: normal to inspection Palpation: soft Skin General skin exam: no rashes or lesions noted and other (chronic discoloration to bilateral lower ) Neuro General: patient alert, patient awake and patient oriented x3 Extrem General: normal to inspection and no pedal edema Psych Mental Status: mental status grossly normal Speech and Movement: speech and movement normal Mood: congruent mood Affect: normal affect Objective Last Vital Signs Temp 36.0 C L 11/02/23 23:35 Pulse 77 11/03/23 12:08 Resp 18 11/03/23 07:46 BP 139/85 11/03/23 07:46 Pulse Ox 100 11/03/23 12:08 Laboratory Results - last 24 hr 11/03/23 06:42 WBC 11.72 H RBC 4.08 Hgb 12.9 Hct 39.9 MCV 98 H MCH 31.6 MCHC 32.3 RDW 13.4 Plt Count 390 MPV 9.8 Immature Gran % 0.7 Neutrophils % 80.8 Lymphocytes % 8.4 Monocytes % 9.9 Eosinophils % 0.0 Basophils % 0.2 Nucleated RBC % 0.0 Absolute Neutrophils 9.47 H Absolute Lymphocytes 0.98 L Absolute Monocytes 1.16 H Absolute Eosinophils 0.00 Absolute Basophils 0.02 PT 20.0 H INR 2.1 H Sodium 141 Potassium 3.9 Chloride 100 Carbon Dioxide 34.5 H Anion Gap 6.5 BUN 64 H Creatinine 1.6 H Est GFR (CKD-EPI 2020) 32.00 Glucose 117 H Calcium 9.7 Time Spent with Patient Time Spent with Patient: 35-49 minutes Time was spent: preparing to see the patient(eg.review tests), obtaining and/or reviewing separately otained hiistory, ordering medications,tests, procedures, indepentently interpreting results and counseling the patient
--- NOTE | 2023-11-03 17:10 | PDOC.CMPRO ---
Date of service: 11/03/23 Time of Service: 17:10 Care Management Progress Note Progress Note Text Progress Note Text: S/O: Celeste was sitting up on the edge of her bed when CM met with her. She stated that she is concerned about not having fuel at home. Earlier, CM provided the phone number for her fuel company to her RN (student) for her to call and coordinate a fuel delivery. Celeste stated that she has utilized community supports in the past, including [employer] and [employer] (her home health care case manager is Charity Milner). Lucia met with her, and stated that Celeste has informed them that she has a couple of plans to come up with the money to pay for fuel. CM will continue to follow. A: Celeste is an 82 year old woman admitted on 10/30/23 with CHF and COPD P:Anticipate Celeste will be discharged home, possibly with new home health services. She will follow up with community providers and plan of care and transport with family. CM will follow and continue to assess for discharge needs. SDOH(Care Management) Screening Will the Patient Participate in the Screening?: Yes Do you worry about having a steady place to live?: no Problems where you live: pests such as bugs, ants or mice and water leaks In the past 12 months, have you had to go without electric, gas, oil or water in your home?: yes Have you or anyone in your house had to go without enough food to eat?: no Has lack of transportation kept you from medical appointments or from doing things needed for daily living?: yes Has anyone in your support network made you feel unsafe for any reason?: no Health Related Social Needs Health related social needs: inadequate housing(Z59.1), transportation insecurity(Z59.82) and material hardship(utilities)(Z59.87)
[2023-11-03] MEDS: Benzonatate 100 MG CAP PO (19:36)
[2023-11-03] MEDS: Acetaminophen 325 MG TAB PO (22:57)
[2023-11-03] MEDS: Melatonin 3 MG TAB PO (22:57)
[2023-11-04] VITALS (9 sets, daily range): BP systolic 110–137; BP diastolic 75–85; PULSE 59–97; RESP 3–24; TEMP 35.9–36.2; O2SAT 94–100
[2023-11-04] MEDS: Latanoprost 0.005% 2.5 ML BTL OP (00:24)
[2023-11-04] MEDS: traMADol 50 MG TAB PO (00:26)
[2023-11-04] MEDS: Metoprolol 25 MG TAB PO ×2 (04:34→10:57)
[2023-11-04] MEDS: Levothyroxine 100 MCG TAB PO (05:52)
[2023-11-04] MEDS: Albuterol/Ipratropium 3 ML UPD VIAL UPD ×2 (05:52→12:06)
[2023-11-04 07:03] LABS: PTT Activated 31.6 sec (23.6-32.8); Prothrombin Time 18.6 sec (9.1-11.1)
[2023-11-04] MEDS: Potassium Chloride 10 MEQ CAPCR 20 MEQ PO ×2 (07:46→12:17)
[2023-11-04] MEDS: Omeprazole 20 MG CAPCR PO (07:46)
[2023-11-04] MEDS: Cyanocobalamin 500 MCG TAB 1000 MCG PO (07:47)
[2023-11-04] MEDS: Chlorthalidone 25 MG TAB PO (07:47)
[2023-11-04] MEDS: predniSONE 20 MG TAB 60 MG PO (07:47)
[2023-11-04] MEDS: buPROPion-CR 100 MG TABCR PO (07:47)
[2023-11-04] MEDS: Doxycycline Hyclate 100 MG CAP PO (07:47)
[2023-11-04] MEDS: Losartan 50 MG TAB PO (07:47)
[2023-11-04] MEDS: Magnesium Oxide 400 MG TAB PO (07:47)
[2023-11-04] MEDS: guaiFENesin 600 MG TABCR PO (07:48)
[2023-11-04] MEDS: Torsemide 20 MG TAB PO (07:48)
[2023-11-04] MEDS: Cholecalciferol (Vitamin D3) 1,000 UNIT TAB 1000 UNITS PO (07:48)
[2023-11-04] MEDS: Nystatin POWDER 15 GM JAR TP (11:00)
--- NOTE | 2023-11-04 11:23 | DSE_ITS ---
Date of service: 11/04/23 Time of Service: 09:00 DS: Diagnosis Discharge Diagnosis (1) Acute exacerbation of CHF (congestive heart failure): (2) Chronic obstructive lung disease: Status: Chronic (3) Atrial fibrillation: Status: Chronic (4) Hypertension: Discharge Plan Disposition Patient Disposition: Home Condition: Improving Discharge Details Reason For Visit: CHF Exacerbation,COPD with Hypercapnia,CHF with Ta Admit Date/Time: 10/30/23 22:16 Admit Provider: Isai Alexander Attending Provider: Isai Alexander Primary Care Provider: Ginny Scherer V Hospital Course Hospital Course: This 83 years old female patient with a past medical history of chronic obstruc tive pulmonary disease, congestive heart failure with reduced left ventricular ejection fraction, atrial fibrillation on warfarin, presented to the ED at [facility] on 10/30/2023 with complaints of progressive respiratory symptoms including persistent cough, over the past 5 days which have not responded to symptomatic treatment with home nebulizers and Tessalon. In the ED the patient was found to be in exacerbation of her CHF with mild hypercapnia and stable chronic hypoxemia on 2 L of oxygen at baseline at home. The patient was also in an atrial fibrillation rhythm with rapid ventricular response. In the ED the patient received IV Lasix, IV methylprednisone, IV doxycycline, and metoprolol. The patient had a Early catheter inserted to measure strict intake and output. The hospitalist was consulted and the patient was admitted to the medical surgical floor with telemetry for evaluation and management of and CHF exacerbation evaluation and management of COPD exacerbation. During the stay the patient continued to receive IV Lasix which was then transition to home dose of torsemide, metoprolol dose was adjusted resulting in controlled atrial fibrillation rhythm. Methylprednisolone was transitioned to oral prednisone.The patient continued to received nebulizer treatments and mucinex. An echocardiogram was repeated which showed an LVEF of 43% and the patient had a cardiology consult with recommendation to determine diuretic dosing at discharge. The patient remained on 2 L of oxygen via nasal cannula and no increment in oxygen supplementation was necessary as per ambulatory oximetry testing. Today the patient will be discharged on a taper of prednisone and 2 more days of doxycycline, oral probiotics as well as her home medicine regimen for the management of her chronic conditions. The patient will need to follow-up with her primary care physician within 1 week.The Patient will have to follow-up with pulmonology within 2 weeks. Home Meds and New Rx's Prescriptions: New doxycycline hyclate 100 mg Capsule 100 mg PO BID Qty: 5 0RF levalbuterol tartrate 45 mcg/actuation Hfa Aerosol Inhaler 2 puff inhalation Q4H PRN PRNQty: 15 0RF Bio-K plus 50 billion cell capsule,delayed release(DR/EC) 1 cap PO DAILY Qty: 3 0RF omeprazole 20 mg Capsule,Delayed Release(Dr/Ec) 20 mg PO DAILY@0730 Qty: 30 0RF prednisone 20 mg Tablet See Rx Instructions .ROUTE .COMPLEX Qty: 22 0RF Rx Instructions: Take 60 mg X2 days Then 40 mg X 3 days Then 30 mg X 3 days Then 20 mg X 3 days Then 10 mg X 3 days Then stop Continued benzonatate 100 mg capsule 100 mg PO TID PRN (Reason: cough) 7 Days Qty: 20 0RF cholecalciferol (vitamin D3) 25 mcg (1,000 unit) capsule 25 mcg PO DAILY levothyroxine [Levoxyl] 100 MCG tablet 100 mcg PO DAILY latanoprost 2.5 ML drops 1 drp Ophthalmic HS warfarin 2.5 MG tablet 2.5 mg PO DAILY nystatin (bulk) 1 EACH powder 1 ea Miscellaneous DAILY 30 Days Qty: 1 1RF Hold Instructions: Changed by Provider tramadol 50 mg tablet 50 mg PO Q4H PRN tizanidine 2 mg capsule 2 mg PO QHS PRN potassium chloride 10 mEq capsule, extended release 20 meq PO DAILY losartan 50 mg tablet 50 mg PO BID metoprolol succinate 100 mg Tablet Extended Release 24 Hr 100 mg PO Q12H Qty: 30 0RF Hold Instructions: until HR above 60 chlorthalidone 25 mg Tablet 25 mg PO DAILY Qty: 30 0RF magnesium oxide 400 mg (241.3 mg magnesium) Tablet 400 mg PO BID Qty: 60 0RF torsemide 20 mg Tablet 20 mg PO DAILY Qty: 30 0RF naproxen 375 mg tablet 375 mg PO BID PRNQty: 60 2RF pramipexole 0.125 mg tablet 0.125 - 0.25 mg PO HS PRN (Reason: Restless Leg(S)) Patient Comments: TAKE 1 TO 2 TABLETS BY MOUTH AT BEDTIME IF NEEDED FOR RESTLESS LEGS cyanocobalamin (vitamin B-12) [Vitamin B-12] 1,000 mcg tablet 1,000 mcg PO DAILY Patient Comments: TAKE 1 TABLET BY MOUTH ONCE DAILY bupropion HCl 100 mg tablet sustained-release 12 hr 100 mg PO BID Patient Comments: TAKE 1 TABLET BY MOUTH TWICE DAILY Slime Ellipta 100-62.5-25 mcg blister with device 1 inh INHALATION DAILY Discontinued bisoprolol fumarate 5 mg tablet 1.25 mg PO DAILY famotidine 20 mg Tablet 20 - 40 mg PO DAILY Discharge Instructions Referrals: Ginny Scherer MD [Primary Care Provider] - 11/11/23 11:30 am () Activity:: Activity as Tolerated Equipment/Supplies:: Home oxygen and walker Diet:: heart healthy Discharge Orders Discharge Orders: Discharge Order (Routine); Ordered 11/04/23 Ordered By: Lila Delgado DS: Summary Time Spent with Patient providing and/or coordinating discharge services: Greater than 30 minutes Status at Discharge Functional status at discharge: uses cane/walker Overall status at discharge: patient is progressing back to baseline Mental Status: mental status grossly normal Speech and Movement: speech and movement normal Mood: congruent mood Affect: normal affect Quality:SDOH Health Related Social Needs: Health related social needs inadequate housing, transp o insecurity, material hardship Exam Narrative Exam Narrative: General: Age-appropriate appearance, sitting in chair without acute distress, pleasant and cooperative during the interview. NEURO: She is alert and oriented x 3, no focal neurological deficit. HEENT: Normocephalic, without apparent trauma. Neck: No JVD. Lungs: Clear lungs bilaterally; O2 to 2 L via nasal cannula in progress as per home regimen Heart: Atrial fibrillation on telemetry heart rate 95-1 10 w/o appreciable murmur, positive pulses to all 4 extremities Abdomen: large, soft , non-tender, bowel sounds are present : No CVA tenderness Extremities: Strength 5/5 bilaterally Skin:No rash or lesion to exposed skin Psych: Normal affect and mood Psych Mental Status: mental status grossly normal Speech and Movement: speech and movement normal Mood: congruent mood Affect: normal affect DS: Data Vitals/I&O Vitals and I&O: Vital Signs Temperature 36.1 C L 11/04/23 08:01 Temperature Source Tympanic 11/04/23 08:01 Pulse 69 11/04/23 10:58 Pulse Rhythm Regular 11/04/23 07:54 Pulse 124 H 10/30/23 23:20 Respiratory Rate 19 11/04/23 08:01 Respiratory Effort Normal, Non-Labored 11/04/23 07:54 Respiratory Depth Normal 11/04/23 07:54 Respiratory Pattern Normal 11/04/23 07:54 Blood Pressure 133/82 11/04/23 10:58 Blood Pressure Mean 113 10/30/23 23:15 Blood Pressure Position Supine 10/30/23 16:56 Pulse Oximetry 100 11/04/23 08:01 Oxygen Delivery Method Nasal Cannula 11/04/23 08:01 Oxygen Flow Rate 2 11/04/23 08:01 Pain Level 0 11/04/23 08:01 Comment SOB while doing ADL's and extra conversation 11/03/23 14:50 Intake & Output 11/03/23 11/03/23 11/04/23 11:59 23:59 11:59 Intake Total 10 / 250 240 / 250 360 / 360 Output Total 100 / 100 475 / 475 Balance -90 / 150 240 / 150 -115 / -115 Weight 101.3 kg Intake: IV 10 / 10 Oral 240 / 240 360 / 360 Output: Urine 100 / 100 475 / 475 Other: Urine Color Light Pastora Yellow Urine Appearance Clear Clear Clear Urine Odor Normal None Comment voided in toilet 1040 and 1330 Stool Size Moderate Moderate Stool Characteristics Soft Soft Brown Voiding Methods Toilet Diaper Incontinent Data Completed and Pending Labs on day of discharge: Labs from last 24 hours 11/04/23 06:24 PT 18.6 H INR 2.0 H APTT 31.6 Preliminary micro results at discharge 10/30/23 18:35 Blood Culture - Preliminary Blood NO GROWTH 96 HOURS 10/30/23 18:35 Blood Culture - Preliminary Blood NO GROWTH 96 HOURS PFSH All Active Problems (Updated 11/02/23 @ 15:29 by Neisha Rajan MD) Discharge planning issues (Acute) Contraindication to deep vein thrombosis (DVT) prophylaxis (Acute) Chronic obstructive lung disease (Chronic 07/11/13) CHF exacerbation (Acute) Osteoarthritis of left knee (Acute) Symptomatic bradycardia (Acute) Dizziness (Acute) Chronic kidney disease (Chronic) Heart failure with reduced ejection fraction (Acute) Sinus bradycardia (Acute) Leukocytosis (Acute) 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) Acute renal failure (ARF) (Acute) Shortness of breath (Acute) Fatigue (Acute) Pulmonary arterial hypertension (Acute) Falls frequently (Acute) Hypomagnesemia (Acute) CHF (congestive heart failure) (Chronic) Status post total right knee replacement (Acute 05/30/20) Abnormal breast finding (Acute 01/19/18) Adenoma of colon (Acute 01/19/18) Bruising (Acute 01/19/18) Chronic depression (Acute 01/19/18) Degenerative arthritis of right knee (Chronic 04/23/15) Disorder of vulva (Acute 01/19/18) Edema leg (Acute 01/19/18) Obesity (Acute 07/11/13) Osteoarthritis (Acute 07/11/13) Other forms of dyspnea (Acute 01/19/18) Overactive bladder (Acute 01/19/18) Primary osteoarthritis of both knees (Chronic 10/29/15) Synvisc injection: 11/04/2019; 05/03/2019 Shortness of breath (Acute 01/19/18) Tendinitis of left shoulder (Acute 01/07/16) Rectal hemorrhage (Acute) Acute on chronic diastolic heart failure (Acute) Chest pain (Acute) Atrial fibrillation (Chronic) SOB (shortness of breath) (Acute) CHF (congestive heart failure) (Chronic) Cough (Acute) Right rotator cuff tendonitis (Acute) Medical History Noncompliance with medication regimen Acute exacerbation of CHF (congestive heart failure) History of cardioversion Cataracts, bilateral Tendonitis surgery r arm Depression Osteoarthritis Morbid obesity H/O adenomatous polyp of colon Hypothyroidism (07/11/13) Essential hypertension (07/11/13) Chronic obstructive lung disease (07/11/13) AF (paroxysmal atrial fibrillation) (01/19/18) Hypertension Surgical History History of carpal tunnel release r wrist H/O: hysterectomy H/O colonoscopy x2 Abdominal hysterectomy Family History Other Heart disease Social History Smoking/Tobacco Use Status: Former Tobacco Use Smoking risk assessment performed?: Yes Alcohol Intake: former Drug use: Never Substance use type: does not use Housing: other Current gender identity: female Do you feel safe at home: Yes Do you feel safe in your relationship?: Yes Additional Social history: Lives in [place] with Ed who is starting to have cognitive problems. They have financial issues Time Spent with Patient Time Spent with Patient: >85 minutes Time was spent: preparing to see the patient(eg.review tests), obtaining and/or reviewing separately otained hiistory, ordering medications,tests, procedures, referring, communicating with other health health care social worker, indepentently interpreting results, counseling the patient and care coordination
[2023-11-04] MEDS: Metoprolol 50 MG TAB PO (14:34)
--- NOTE | 2023-11-04 15:58 | CMDISCH_ITS ---
Date of service: 11/04/23 Time of Service: 15:58 LACE Index Scoring Tool Questions: Length of Stay (in days): 4 - 6 Was the patient admitted via the E.D.?: Yes Comorbidities: Congestive Heart Failure, Chronic Pulmonary Disease and Liver or Renal Disease E.D. Visits: 1 Answers: Total Score: 13 Risk of Readmission: High Risk Care Management Discharge Plan Reason for Hospitalization: CHF and COPD exacerbation Discharge Plan: Celeste will be discharged home with new home health services for PT. She will follow up with community providers and plan of care and transport with a friend. Patient/Family Education Needs: Review of discharge instructions, activity, limitations, follow up plan, discuss Ask Me Three Services Needed at Discharge: Home Health Care Services SDOH Health Related Social Needs: Health related social needs inadequate housing, transp o insecurity, material hardship Health related social needs: inadequate housing(Z59.1), transportation insecurity(Z59.82) and material hardship(utilities)(Z59.87)
== END 2023-11-04 17:28 | disposition home or self-care (01) | DRG 291 ==
LOC: ER 22:27 → MS 23:33
PROVIDERS: Family Medicine; Internal Medicine; Nurse Practitioner Acute Care; Admitting Provider Family Medicine; Emergency Provider Registered Nurse Emergency; PCP Family Medicine; Visit Provider Family Medicine
DX: I50.43 Acute on chronic combined systolic (congestive) and diastolic (congestive) heart failure (principal); J44.1 Chronic obstructive pulmonary disease with (acute) exacerbation; I48.19 Other persistent atrial fibrillation; I13.0 Hypertensive heart and chronic kidney disease with heart failure and stage 1 through stage 4 chronic kidney disease, or unspecified chronic kidney disease; N17.9 Acute kidney failure, unspecified; E66.01 Morbid (severe) obesity due to excess calories; Z68.38 Body mass index [BMI] 38.0-38.9, adult; N18.9 Chronic kidney disease, unspecified; Z79.01 Long term (current) use of anticoagulants; I27.20 Pulmonary hypertension, unspecified; E83.42 Hypomagnesemia; R29.6 Repeated falls; F32.9 Major depressive disorder, single episode, unspecified; N32.81 Overactive bladder; E03.9 Hypothyroidism, unspecified; R06.89 Other abnormalities of breathing; R09.02 Hypoxemia; Z66 Do not resuscitate; Z96.651 Presence of right artificial knee joint; M17.12 Unilateral primary osteoarthritis, left knee
CPT/HCPCS: 00123; 36415; 51702; 80048; 80053; 82805; 85027; 87040; 87637; 93005; 93306; 93308; 94618; 94640; 96361; 96374; 96375; 99223; 99232; 99285; 71045; 83605; 83735; 83880; 84439; 84443; 84484; 85025; 85610; 85730; 93010; 94667; 94668; 94760; 99233; 99239; J1100; J1160; J1940; J2060; J2930; J3490; J7512; J7613; J7620

== ENCOUNTER → 2023-11-02 07:41 | Outpatient (BNVA) | payer MEDICARE, SELFPAY | PROVIDERS: PCP Family Medicine; Referring Provider Family Medicine; Visit Provider Internal Medicine Cardiovascular Disease ==

== ENCOUNTER 2023-11-11 15:13 | Outpatient (REF) | payer MEDICARE, SELFPAY ==
[2023-11-11 15:28] LABS: HCT 40.6 % (36.0-46.0); HGB 13.2 g/dL (11.2-15.7); MCH 32.5 pg (27.0-33.0); MCHC 32.5 % (32.0-36.0); MCV 100 fL (80-95); MPV 10.2 fL (8.0-11.0); Platelet Count 269 10^3/uL (130-400); RBC 4.06 10^6/uL (3.93-5.22); RDW 14.2 % (11.7-14.6); RDW-SD 52.5 fL
[2023-11-11 15:57] LABS: Anion Gap 7.3 mmol/L (3-11); BUN 29 mg/dL (7-18); CO2 29.7 mmol/L (21.0-32.0); Calcium 9.1 mg/dL (8.5-10.1); Chloride 103 mmol/L (98-107); Estimated GFR 56.25 (mL/min/1.73m2); Glucose 139 mg/dL (74-106); NT-proBNP 990 pg/mL (<300); Potassium 4.5 mmol/L (3.5-5.1); Sodium 140 mmol/L (136-145)
== END 2023-11-11 15:14 | disposition home or self-care (01) ==
LOC: NCHCN 15:13
PROVIDERS: PCP Family Medicine; Visit Provider Nurse Practitioner Family
DX: I50.9 Heart failure, unspecified (principal)
CPT/HCPCS: 80048; 85027; 83880

== ENCOUNTER 2023-11-28 05:30 | Inpatient (IN) | payer MEDICARE, SELFPAY ==
[2023-11-28] VITALS (48 sets, daily range): BP systolic 89–134; BP diastolic 49–88; PULSE 63–140; RESP 15–38; TEMP 36.3–36.8; O2SAT 92–98
--- NOTE | 2023-11-28 05:30 | DI.RAD_ITS ---
Exam(s) XR PORTABLE CHEST AP EXAM: XR PORTABLE CHEST AP CLINICAL HISTORY: shortness of breath, edema. TECHNIQUE: 2D digital imaging was performed. COMPARISON: CR XR PORTABLE CHEST AP from 10/30/2023 FINDINGS: Single AP portable view. Cardiomegaly again noted. Mediastinum not widened. Appearance of the lung dubois is unchanged with increased interstitial markings without Yenifer B line s. Slight blunting of the costophrenic angle left side may indicate small pleural effusion. This is unchanged. IMPRESSION: Appearance is unchanged from 10/30/2023.Cardiomegaly and chronic appearing interstitial markings. Ca n not exclude element of interstitial pulmonary edema. DATA REPOSITORY: RADIATION DOSE DELIVERED:
--- NOTE | 2023-11-28 05:30 | RT.EKG_ITS ---
APPROVED REPORT Exam: Resting ECG Reason for Exam: SOB Patient Location: E HR:138 bpm ECG Measurements Heart Rate 138 AXIS PA [id number] P [id number] QRSd 85 QRS 31 QT 312 T [id number] QTc 473 Conclusion Atrial fibrillation...V-rate 101-170, irreg A-activity Nonspecific T abnrm, anterolateral leads...T <-0.10mV, I aVL V2-V6 I have reviewed and interpreted ECG and agree with software generated interpretation.
--- NOTE | 2023-11-28 05:47 | W.ED.GENAD ---
Discharge Plan Disposition Patient Disposition: Admit to [facility] Condition: Improving Discharge Details Chief Complaint: SOB Clinical Impression: CHF (congestive heart failure), Atrial fibrillation Primary Care Provider: Ginny Scherer V ED Provider: Mehrdad Hilario Home Meds and New Rx's Prescriptions: No Action cholecalciferol (vitamin D3) 25 mcg (1,000 unit) capsule 25 mcg PO DAILY levothyroxine [Levoxyl] 100 MCG tablet 100 mcg PO DAILY latanoprost 2.5 ML drops 1 drp Ophthalmic HS warfarin 2.5 MG tablet 2.5 mg PO DAILY nystatin (bulk) 1 EACH powder 1 ea Miscellaneous DAILY 30 Days Qty: 1 1RF Hold Instructions: Changed by Provider tramadol 50 mg tablet 50 mg PO Q4H PRN tizanidine 2 mg capsule 2 mg PO QHS PRN potassium chloride 10 mEq capsule, extended release 20 meq PO DAILY losartan 50 mg tablet 50 mg PO BID metoprolol succinate 100 mg Tablet Extended Release 24 Hr 100 mg PO Q12H Qty: 30 0RF Hold Instructions: until HR above 60 chlorthalidone 25 mg Tablet 25 mg PO DAILY Qty: 30 0RF magnesium oxide 400 mg (241.3 mg magnesium) Tablet 400 mg PO BID Qty: 60 0RF torsemide 20 mg Tablet 20 mg PO DAILY Qty: 30 0RF naproxen 375 mg tablet 375 mg PO BID PRNQty: 60 2RF pramipexole 0.125 mg tablet 0.125 - 0.25 mg PO HS PRN (Reason: Restless Leg(S)) Patient Comments: TAKE 1 TO 2 TABLETS BY MOUTH AT BEDTIME IF NEEDED FOR RESTLESS LEGS cyanocobalamin (vitamin B-12) [Vitamin B-12] 1,000 mcg tablet 1,000 mcg PO DAILY Patient Comments: TAKE 1 TABLET BY MOUTH ONCE DAILY bupropion HCl 100 mg tablet sustained-release 12 hr 100 mg PO BID Patient Comments: TAKE 1 TABLET BY MOUTH TWICE DAILY Trelegy Ellipta 100-62.5-25 mcg blister with device 1 inh INHALATION DAILY doxycycline hyclate 100 mg Capsule 100 mg PO BID Qty: 5 0RF levalbuterol tartrate 45 mcg/actuation Hfa Aerosol Inhaler 2 puff inhalation Q4H PRN PRNQty: 15 0RF Bio-K plus 50 billion cell capsule,delayed release(DR/EC) 1 cap PO DAILY Qty: 3 0RF omeprazole 20 mg Capsule,Delayed Release(Dr/Ec) 20 mg PO DAILY@0730 Qty: 30 0RF prednisone 20 mg Tablet See Rx Instructions .ROUTE .COMPLEX Qty: 22 0RF Rx Instructions: Take 60 mg X2 days Then 40 mg X 3 days Then 30 mg X 3 days Then 20 mg X 3 days Then 10 mg X 3 days Then stop Discharge Data Discharge Physician: Mehrdad Hilario [facility] General Date/Time Provider Initiated Documentation: 11/28/23 05:40. HPI Narrative: The patient is an 83-year-old female, with a past medical history significant for atrial fibrillation and COPD, presents to the emergency department this evening with a complaint of shortness of breath and chest pressure. The patient reports that the shortness of breath has been worsening over the course of approximately 1 week and she was concerned that she was to be developing a COPD exacerbation. Tonight when she got up to go to the bathroom out of bed, the patient developed chest heaviness. She tells me that she is also been having increasing edema in her bilateral lower extremities, over her baseline edema level. When EMS found the patient, she was struggling to breathe and was in a rapid atrial fibrillation in the 150s. The patient does not think that she is chronically in atrial fibrillation, and she does not really take any rhythm controlling agents. The patient is on warfarin, so she potentially has this paroxysmally and is unaware of it. In fact, the patient tells me that she cannot feel her heart racing at this time. Related Data Home Medications Medication Instructions Recorded Confirmed Levoxyl 100 mcg tablet 100 mcg PO DAILY 07/11/13 10/30/23 (levothyroxine) latanoprost 0.005 % eye drops 1 drp ophthalmic (eye) HS 01/19/18 10/30/23 warfarin 2.5 mg tablet 2.5 mg PO DAILY 01/19/18 10/30/23 nystatin (bulk) 500 million unit 1 ea miscellaneous DAILY 30 days 02/05/18 10/30/23 powder ##1 cyanocobalamin (vitamin B-12) 1,000 mcg PO DAILY 05/30/20 10/30/23 1,000 mcg tablet (Vitamin B-12) naproxen 375 mg tablet 375 mg PO BID PRN #60 tabs 05/30/20 10/30/23 pramipexole 0.125 mg tablet 0.125 - 0.25 mg PO HS PRN Restless 05/30/20 10/30/23 Leg(S) bupropion HCl 100 mg tablet,12 hr 100 mg PO BID 10/24/21 10/30/23 sustained-release chlorthalidone 25 mg tablet 25 mg PO DAILY #30 tabs 06/03/22 10/30/23 magnesium oxide 400 mg (241.3 mg 400 mg PO BID #60 tabs 06/03/22 10/30/23 magnesium) tablet metoprolol succinate 100 mg 100 mg PO Q12H #30 tabs 06/03/22 10/30/23 tablet,extended release 24 hr torsemide 20 mg tablet 20 mg PO DAILY #30 tabs 06/03/22 10/30/23 cholecalciferol (vitamin D3) 25 25 mcg PO DAILY 06/04/22 10/30/23 mcg (1,000 unit) capsule fluticasone fur. 100 mcg-umeclid 1 inh inhalation DAILY 08/12/22 10/30/23 62.5 mcg-vilant 25 mcg inhalat.powder (Trelegy Ellipta) losartan 50 mg tablet 50 mg PO BID 04/15/23 10/30/23 potassium chloride 10 mEq 20 meq PO DAILY 04/15/23 10/30/23 capsule,extended release tizanidine 2 mg capsule 2 mg PO QHS PRN 04/15/23 10/30/23 tramadol 50 mg tablet 50 mg PO Q4H PRN 04/15/23 10/30/23 L. acidophilus,casei,rhamnosus 50 1 cap PO DAILY #3 caps 11/04/23 billion cell capsule,delayed release (Bio-K plus) doxycycline hyclate 100 mg capsule 100 mg PO BID #5 caps 11/04/23 levalbuterol tartrate 45 2 puff inhalation Q4H PRN PRN #15 11/04/23 mcg/actuation aerosol inhaler grams omeprazole 20 mg capsule,delayed 20 mg PO DAILY@0730 #30 caps 11/04/23 release prednisone 20 mg tablet See Rx Instructions .Route 11/04/23 .COMPLEX #22 tabs Previous Rx's Medication Instructions Recorded nystatin (bulk) 500 million unit 1 ea miscellaneous DAILY 30 days 02/05/18 powder ##1 naproxen 375 mg tablet 375 mg PO BID PRN #60 tabs 05/30/20 chlorthalidone 25 mg tablet 25 mg PO DAILY #30 tabs 06/03/22 magnesium oxide 400 mg (241.3 mg 400 mg PO BID #60 tabs 06/03/22 magnesium) tablet metoprolol succinate 100 mg 100 mg PO Q12H #30 tabs 06/03/22 tablet,extended release 24 hr torsemide 20 mg tablet 20 mg PO DAILY #30 tabs 06/03/22 L. acidophilus,casei,rhamnosus 50 1 cap PO DAILY #3 caps 11/04/23 billion cell capsule,delayed release (Bio-K plus) doxycycline hyclate 100 mg capsule 100 mg PO BID #5 caps 11/04/23 levalbuterol tartrate 45 2 puff inhalation Q4H PRN PRN #15 11/04/23 mcg/actuation aerosol inhaler grams omeprazole 20 mg capsule,delayed 20 mg PO DAILY@0730 #30 caps 11/04/23 release prednisone 20 mg tablet See Rx Instructions .Route 11/04/23 .COMPLEX #22 tabs Allergies Allergy/AdvReac Type Severity Reaction Status Date / Time adhesive Allergy Severe skin rash, Verified 11/28/23 07:14 blisters lisinopril Allergy Intermediate Nausea Verified 11/28/23 07:14 amoxicillin [Amoxicillin] Allergy Mild TINGLING Verified 11/28/23 07:14 oxybutynin Allergy Unknown PT CAN'T Verified 11/28/23 07:14 REMEMBER adhesive tape Allergy Hives Verified 11/28/23 07:14 General Stated Complaint: SOB CECILIA: 3 Exam Const Other: The patient is awake, alert, interactive with examination. She is utilizing a albuterol nebulizer on arrival to the emergency room and appears in no distress and not short of breath. Resp Other: The lung sounds are clear bilaterally in the apices and middle lobes. There is some rales appreciated in the bilateral lower lung dubois. There is no significant increased work of breathing and no tachypnea. The patient saturates in the mid 80s on room air and in the mid 90s on her 2 L that she typically uses. Cardio Other: The patient has a rapid and irregular heart rate with faint heart sounds which is likely secondary to body habitus and significant breast tissue GI Other: The abdomen is soft nontender. Skin Other: The skin is pink warm and dry. There are no signs of peripheral or central cyanosis. Neuro Other: The patient spontaneously moves all 4 extremities and is able to transfer on her own from the stretcher to the [facility] in the emergency room. There are no reported focal motor or sensory deficits. The visualized components of the cranial nerves are grossly intact. Extrem Other: There is 2-3+ pitting edema in the bilateral lower extremities, and in the ankles. There are skin changes associated with chronic venous stasis disease. Course Vital Signs Vital signs: Vital Signs Temperature 36.3 C L 11/28/23 05:30 Pulse 140 H 11/28/23 05:30 Respiratory Rate 20 11/28/23 05:30 Blood Pressure 126/85 11/28/23 05:30 Pulse Oximetry 95 11/28/23 05:30 Temperature 36.3 C L 11/28/23 05:30 Temperature Source Temporal Artery Scan 11/28/23 05:30 Pulse 140 H 11/28/23 05:30 Respiratory Rate 20 11/28/23 05:38 Respiratory Effort Short of Breath 11/28/23 05:38 Respiratory Depth Normal 11/28/23 05:38 Respiratory Pattern Normal 11/28/23 05:38 Blood Pressure 126/85 11/28/23 05:30 Pulse Oximetry 95 11/28/23 05:30 Oxygen Delivery Method Room Air 11/28/23 05:30 Oxygen Flow Rate 0 11/28/23 05:30 Pain Level 0 11/28/23 05:30 Medical Decision Making Medical Records Medical records narrative: The patient was seen and examined. Her EKG represents a rapid atrial fibrillation, that was at least partially controlled with IV metoprolol prior to arrival in the emergency room. The lung sounds are not particularly consistent with a COPD exacerbation, as there is no active wheezing and no significant obvious problems with air movement. I paused the second albuterol nebulizer treatment as this may be exacerbating her underlying atrial fibrillation. The rales in the lung bases might be more consistent with congestive heart failure, and the patient does take torsemide at baseline. This would also fit with the increasing edema in her bilateral lower extremities. As the patient cannot tell when she is in A-fib, she could potentially been having symptoms intermittently throughout the week. The patient did recently have bisoprolol discontinued by her physician, for reasons that she does not understand. The patient was given IV diltiazem here in the emergency room which significantly improved her heart rate into the upper 80s and lower 90s. She will be placed on a Cardizem drip for rate stabilization in the short-term. A cardiac workup was begun to evaluate for an acute troponin elevation, and to determine if there is an elevated BNP which would be inconsistent with congestive failure. Chest x-ray was also ordered at this time. The patient continues on her 2 L of supplemental oxygen and has an oxygen saturation in the mid 90s. Given the patient's underlying cardiac problems, and her heart score of 5, she will require admission for stabilization of her cardiac rhythm, serial myocardial enzymes, and medical therapy to improve her shortness of breath and functional capacity with exercise. 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) Acute renal failure (ARF) (Acute) Shortness of breath (Acute) Fatigue (Acute) Pulmonary arterial hypertension (Acute) Falls frequently (Acute) Hypomagnesemia (Acute) CHF (congestive heart failure) (Chronic) Status post total right knee replacement (Acute 05/30/20) Abnormal breast finding (Acute 01/19/18) Adenoma of colon (Acute 01/19/18) Bruising (Acute 01/19/18) Chronic depression (Acute 01/19/18) Degenerative arthritis of right knee (Chronic 04/23/15) Disorder of vulva (Acute 01/19/18) Edema leg (Acute 01/19/18) Obesity (Acute 07/11/13) Osteoarthritis (Acute 07/11/13) Other forms of dyspnea (Acute 01/19/18) Overactive bladder (Acute 01/19/18) Primary osteoarthritis of both knees (Chronic 10/29/15) Synvisc injection: 11/04/2019; 05/03/2019 Shortness of breath (Acute 01/19/18) Tendinitis of left shoulder (Acute 01/07/16) Rectal hemorrhage (Acute) Acute on chronic diastolic heart failure (Acute) Chest pain (Acute) Atrial fibrillation (Chronic) SOB (shortness of breath) (Acute) CHF (congestive heart failure) (Chronic) Cough (Acute) Right rotator cuff tendonitis (Acute) Medical History Noncompliance with medication regimen Acute exacerbation of CHF (congestive heart failure) History of cardioversion Cataracts, bilateral Tendonitis surgery r arm Depression Osteoarthritis Morbid obesity H/O adenomatous polyp of colon Hypothyroidism (07/11/13) Essential hypertension (07/11/13) Chronic obstructive lung disease (07/11/13) AF (paroxysmal atrial fibrillation) (01/19/18) Hypertension Surgical History History of carpal tunnel release r wrist H/O: hysterectomy H/O colonoscopy x2 Abdominal hysterectomy Family History Other Heart disease Social History Smoking/Tobacco Use Status: Former Tobacco Use Smoking risk assessment performed?: Yes Alcohol Intake: former Drug use: Never Substance use type: does not use Housing: other Current gender identity: female Do you feel safe at home: Yes Do you feel safe in your relationship?: Yes Additional Social history: Lives in [place] with Ed who is starting to have cognitive problems. They have financial issues
[2023-11-28] MEDS: dilTIAZem 25 MG/5 ML VIAL 15 MG IVP (05:53)
[2023-11-28 05:54] LABS: Abs Immature Grans 0.04 10^3/uL (0.0-0.06); Absolute Basophil Count 0.04 10^3/uL (0.0-0.2); Absolute Eosinophil Count 0.17 10^3/uL (0.0-0.7); Absolute Lymphocyte Count 1.13 10^3/uL (1.2-3.4); Absolute Monocyte Count 0.55 10^3/uL (0.1-0.8); Absolute Neutrophil Count 4.91 10^3/uL (1.2-6.7); BE (Venous) 8 mmol/L (-2-3); Basophils % 0.6; Eosinophils % 2.5; HCO3 (Venous) 33 mmol/L (23-28); HCT 38.9 % (36.0-46.0); HGB 12.2 g/dL (11.2-15.7); Immature Grans % 0.6; Lymphocytes % 16.5; MCH 31.8 pg (27.0-33.0); MCHC 31.4 % (32.0-36.0); MCV 101 fL (80-95); MPV 9.5 fL (8.0-11.0); Neutrophils % 71.8; O2 Sat (Venous) 37 %; Platelet Count 263 10^3/uL (130-400); RBC 3.84 10^6/uL (3.93-5.22); RDW 14.4 % (11.7-14.6); RDW-SD 54.1 fL; TCO2 (Venous) 31 mmol/L (24-29); WBC 6.84 10^3/uL (4.4-10.8); pCO2 (Venous) 56 mmHg (41-51); pH (Venous) 7.38 (7.31-7.41); pO2 (Venous) 23 mmHg
[2023-11-28] MEDS: dilTIAZem 125 MG in Normal Saline 100 ML 10 MG IV (05:58)
[2023-11-28 06:32] LABS: ALT 24 U/L (14-59); AST 26 U/L (15-37); Albumin 2.6 g/dL (3.4-5.0); Alkaline Phosphatase 115 U/L (46-116); Anion Gap 8.8 mmol/L (3-11); BUN 22 mg/dL (7-18); Bilirubin, Total 0.6 mg/dL (0.2-1.0); CO2 32.2 mmol/L (21.0-32.0); CREATININE 1.4 mg/dL (0.55-1.02); Calcium 9.1 mg/dL (8.5-10.1); Chloride 101 mmol/L (98-107); Estimated GFR 37.33 (mL/min/1.73m2); Glucose 117 mg/dL (74-106); Magnesium 1.9 mg/dL (1.8-2.4); Potassium 3.8 mmol/L (3.5-5.1); Sodium 142 mmol/L (136-145); Total Protein 7.5 g/dL (6.4-8.2); Troponin I < 50 ng/L (< or =60)
[2023-11-28 06:34] LABS: INR 2.2 (0.9-1.1); Troponin I < 50 ng/L (< or =60)
[2023-11-28 06:35] LABS: NT-proBNP 2030 pg/mL (<300)
[2023-11-28] MEDS: Furosemide 100 MG/10 ML VIAL 80 MG IVP (06:39)
[2023-11-28] MEDS: dilTIAZem 30 MG TAB PO ×3 (07:34→19:58)
--- NOTE | 2023-11-28 07:39 | DI.VRAD_ITS ---
PROCEDURE INFORMATION: Exam: XR Chest Exam date and time: 11/28/2023 6:02 AM Age: 83 years old Clinical indication: Shortness of breath and other: Edema; Additional info: Shortness of breath, edema TECHNIQUE: Imaging protocol: Radiologic exam of the chest. Views: 1 view. COMPARISON: CR XR PORTABLE CHEST AP 10/30/2023 5:23 PM FINDINGS: Lungs: Mild pulmonary vascular congestion. Pleural spaces: Possible small left pleural effusion. Heart/Mediastinum: Enlarged cardiac silhouette. Bones/joints: Grossly unremarkable. IMPRESSION: 1. Enlarged cardiac silhouette. 2. Mild pulmonary vascular congestion and possible small left pleural effusion. Dictated and Authenticated by: Mili Huntley MD. Ordering:WILBUR Cronin MD
[2023-11-28] MEDS: Acetaminophen 325 MG TAB PO ×2 (09:15→21:52)
[2023-11-28 09:21] LABS: Troponin I < 50 ng/L (< or =60)
--- NOTE | 2023-11-28 09:46 | HPE_ITS ---
Date of service: 11/28/23 Time of Service: 09:46 Assessment and Plan Assessment and plan (1) Atrial fibrillation: Status: Chronic Assessment and plan: patient resumed her bisoprolol rather than going back on metoprolol. Apparently we never prescribed her Toprol XL at the time of her discharge. We just told her to resume her prior dose and to stop the bisoprolol. She was on homeopathic doses of bisoprolol 1.25 mg daily (1/4 of 5 mg). continue diltiazem drip, wean down while initiating oral diltiazem. consider resumption of oral metoprolol. I doubt that we will be able adequately control her rate w/ bisoprolol alone, although I did give her a single dose of bisoprolol. Qualifiers: Atrial fibrillation type: persistent (not longstanding) Qualified Code(s): I48.19 - Other persistent atrial fibrillation (2) Acute exacerbation of CHF (congestive heart failure): Assessment and plan: patient had recent echocardiogram the demonstrated the following: Conclusion Mild concentric left ventricular hypertrophy. Ejection fraction is 40 to 45%. There are no segmental wall motion abnormalities. Patient is in atrial fibrillation with [id number] variation Normal right ventricular size and systolic function Moderately dilated right atrium. Left atrium is top normal size Trileaflet aortic valve without stenosis or regurgitation Normal mitral valve mild to moderate regurgitation Normal tricuspid valve with moderate regurgitation. Estimated right ventricular systolic pressure is 26 mmHg continue iv lasix until euvolemic then resume torsemide but at increased dosing, add spironolactone. Once she is euvolemic she should be put on Jardiance. continue her losartan but consider switching her to Entresto (will defer this change to her PCP). Qualifiers: Heart failure type: combined systolic and diastolic Qualified Code(s): I50.43 - Acute on chronic combined systolic (congestive) and diastolic (congestive) heart failure (3) Chronic obstructive lung disease: Status: Chronic Assessment and plan: continue her Trelegy, she is not actively bronchospastic so I have not put her on albutreol/or DuoNeb. Qualifiers: COPD type: unspecified COPD Qualified Code(s): J44.9 - Chronic obstructive pulmonary disease, unspecified (4) Hypertension: Assessment and plan: continue her losartan. Qualifiers: Hypertension type: primary hypertension Qualified Code(s): I10 - Essential (primary) hypertension (5) Discharge planning issues: Status: Deleted Assessment and plan: Patient wishes to be full code for now. She would not want to be on terminal press operator life support but says that in the event of an acute event she would want CPR, defibrillation and mechanical ventilator. She is in the process of selling her home, she recently became a and has no social support here and would like to move to [place] to be close to her grandchildren. History of Present Illness History of Present Illness Chief Complaint: dyspnea Narrative: 83 years old female patient with a past medical history of chronic obstructive pulmonary disease, congestive heart failure with reduced left ventricular ejection fraction, atrial fibrillation on warfarin, presented to the ED at [facility] early this morning w/ progressive dyspnea over past several days. This has been accompanied by increased pedal edema, no chest pain or pressure but palpitations. She was recently hospitalized at [facility] 10/30-11/04/23 with similar symptoms and was treated for CHF, rapid atrial fib along w/ COPD exacerbation. She has had no sputum production fever or chills this admission. On arrival to the E.D. this morning she was in acute CHF (pulmonary edema on CXR, BNP 2030 (last level 990 on 11/11), and normal troponin I levels, no acute changes other than rapid afib (she has some nonspecific ST abnormalities diffusely that are unchanged) rate of 138 bpm. Patient denies missing any of her meds. She gets her meds in a dose pack from [employer]. Per her last discharge note she was suppose to go off bisoprolol and continue Toprol XL 100 mg q12h. However, from her current med list she provided from [facility] did not show metoprolol but she has been taking a low dose bisoprolol 1/4 tablet of 5 mg tablet daily. She also has been on torsemide 20 mg daily alternating w/ 10 mg daily. She admits to being noncompliant w/ her diet, taking in too much salt. Patient was begun on diltiazem iv infusion after being given 15 mg IV bolus. She was given lasix 80 mg IVP. She states that she feels much improved since this. She is now admitted to ICU on diltiazem drip. 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) Acute renal failure (ARF) (Acute) Shortness of breath (Acute) Fatigue (Acute) Pulmonary arterial hypertension (Acute) Falls frequently (Acute) Hypomagnesemia (Acute) CHF (congestive heart failure) (Chronic) Status post total right knee replacement (Acute 05/30/20) Abnormal breast finding (Acute 01/19/18) Adenoma of colon (Acute 01/19/18) Bruising (Acute 01/19/18) Chronic depression (Acute 01/19/18) Degenerative arthritis of right knee (Chronic 04/23/15) Disorder of vulva (Acute 01/19/18) Edema leg (Acute 01/19/18) Obesity (Acute 07/11/13) Osteoarthritis (Acute 07/11/13) Other forms of dyspnea (Acute 01/19/18) Overactive bladder (Acute 01/19/18) Primary osteoarthritis of both knees (Chronic 10/29/15) Synvisc injection: 11/04/2019; 05/03/2019 Shortness of breath (Acute 01/19/18) Tendinitis of left shoulder (Acute 01/07/16) Rectal hemorrhage (Acute) Acute on chronic diastolic heart failure (Acute) Chest pain (Acute) Atrial fibrillation (Chronic) SOB (shortness of breath) (Acute) CHF (congestive heart failure) (Chronic) Cough (Acute) Right rotator cuff tendonitis (Acute) Medical History Noncompliance with medication regimen Acute exacerbation of CHF (congestive heart failure) History of cardioversion Cataracts, bilateral Tendonitis surgery r arm Depression Osteoarthritis Morbid obesity H/O adenomatous polyp of colon Hypothyroidism (07/11/13) Essential hypertension (07/11/13) AF (paroxysmal atrial fibrillation) (01/19/18) Hypertension Surgical History History of carpal tunnel release r wrist H/O: hysterectomy H/O colonoscopy x2 Abdominal hysterectomy Family History Other Heart disease Social History Smoking/Tobacco Use Status: Former Tobacco Use Smoking risk assessment performed?: Yes Alcohol Intake: former Drug use: Never Substance use type: does not use Housing: house Current gender identity: female Do you feel safe at home: Yes Do you feel safe in your relationship?: Yes Additional Social history: Lives in [place] with Ed who is starting to have cognitive problems. They have financial issues Meds Allergies and Home Medications Allergies Allergy/AdvReac Type Severity Reaction Status Date / Time adhesive Allergy Severe skin rash, Verified 11/28/23 07:14 blisters lisinopril Allergy Intermediate Nausea Verified 11/28/23 07:14 amoxicillin [Amoxicillin] Allergy Mild TINGLING Verified 11/28/23 07:14 oxybutynin Allergy Unknown PT CAN'T Verified 11/28/23 07:14 REMEMBER adhesive tape Allergy Hives Verified 11/28/23 07:14 Home Medications Medication Instructions Recorded Confirmed Type Levoxyl 100 mcg tablet 100 mcg PO DAILY 07/11/13 11/28/23 History (levothyroxine) warfarin 2.5 mg tablet 2.5 mg PO DAILY 01/19/18 11/28/23 History cyanocobalamin (vitamin B-12) 1,000 mcg PO DAILY 05/30/20 11/28/23 History 1,000 mcg tablet (Vitamin B-12) pramipexole 0.125 mg tablet 0.125 - 0.25 mg PO HS PRN Restless 05/30/20 11/28/23 History Leg(S) bupropion HCl 100 mg tablet,12 hr 100 mg PO BID 10/24/21 11/28/23 History sustained-release chlorthalidone 25 mg tablet 25 mg PO DAILY #30 tabs 06/03/22 11/28/23 Rx magnesium oxide 400 mg (241.3 mg 400 mg PO BID #60 tabs 06/03/22 11/28/23 Rx magnesium) tablet torsemide 20 mg tablet 20 mg PO DAILY #30 tabs 06/03/22 11/28/23 Rx cholecalciferol (vitamin D3) 25 50 mcg PO DAILY 06/04/22 11/28/23 History mcg (1,000 unit) capsule fluticasone fur. 100 mcg-umeclid 1 inh inhalation DAILY 08/12/22 11/28/23 History 62.5 mcg-vilant 25 mcg inhalat.powder (Trelegy Ellipta) losartan 50 mg tablet 50 mg PO BID 04/15/23 11/28/23 History potassium chloride 10 mEq 20 meq PO DAILY 04/15/23 11/28/23 History capsule,extended release bisoprolol fumarate 5 mg tablet 5 mg PO DAILY 11/28/23 11/28/23 History famotidine 20 mg tablet 20 mg PO DAILY 11/28/23 11/28/23 History Exam Narrative Exam Narrative: Alert and oriented x4 HEENT: Atraumatic normocephalic, pupils equally round reactive to light and accommodation, extraocular motion intact, TMs intact, nares moist and patent without exudate or bleeding, oropharynx noninjected without exudate, Neck: Supple, nontender, without thyromegaly or lymphadenopathy or JVD. Normal carotid pulses Lungs: diffuse rales, lower lung zones > mid or upper lung zones Heart: irregularly irregular, tachycardic Abdomen: Nondistended, normal bowel sounds, nontender to palpation or percussion, no organomegaly, no bruits, no palpable masses Genitalia and rectal exam: Deferred Breasts: Deferred Extremities: Normal range of motion with normal strength. 1+ pitting bilateral lower leg/pedal edema; chronic venous stasis skin changes. diminished pedal pulses Neurologic: Cranial nerves II through XII grossly within normal limits. Normal strength and sensation over the face trunk and extremities. Results Labs 11/28/23 05:46 11/28/23 05:46 Labs: Laboratory Results - last 24 hr 11/28/23 11/28/23 11/28/23 05:46 05:46 08:55 WBC 6.84 RBC 3.84 L Hgb 12.2 Hct 38.9 MCV 101 H MCH 31.8 MCHC 31.4 L RDW 14.4 Plt Count 263 MPV 9.5 Immature Gran % 0.6 Neutrophils % 71.8 Lymphocytes % 16.5 Monocytes % 8.0 Eosinophils % 2.5 Basophils % 0.6 Nucleated RBC % 0.0 Absolute Neutrophils 4.91 Absolute Lymphocytes 1.13 L Absolute Monocytes 0.55 Absolute Eosinophils 0.17 Absolute Basophils 0.04 PT 21.0 H INR 2.2 H VBG pH 7.38 VBG pCO2 56 H VBG pO2 23 VBG HCO3 33 H VBG Total CO2 31 H VBG O2 Saturation 37 VBG Base Excess 8 H Sodium 142 Potassium 3.8 Chloride 101 Carbon Dioxide 32.2 H Anion Gap 8.8 BUN 22 H Creatinine 1.4 H Est GFR (CKD-EPI 2020) 37.33 Glucose 117 H Calcium 9.1 Magnesium 1.9 Total Bilirubin 0.6 AST 26 ALT 24 Alkaline Phosphatase 115 Troponin I < 50 < 50 < 50 NT-Pro-B Natriuret Pep 2030 H Total Protein 7.5 Albumin 2.6 L Last Vital Signs Temp 36.6 C 11/28/23 08:29 Pulse 88 11/28/23 09:16 Resp 15 11/28/23 09:16 BP 108/77 11/28/23 09:16 Pulse Ox 95 11/28/23 08:47 Time Spent Time spent with Patient: 55-74 minutes Time was spent: preparing to see the patient(eg.review tests), ordering medications,tests, procedures, referring, communicating with other health critical care unit manager, indepentently interpreting results, counseling the patient and care coordination
--- NOTE | 2023-11-28 10:41 | PDOC.CMIN ---
Date of service: 11/28/23 Care Management Initial Assmt Initial Assessment REASON FOR HOSPITALIZATION:: Afig,w/RVR,CHF PREVIOUS FUNCTIONAL STATUS/SOCIAL/FAMILY SUPPORTS:: Celeste lives in [place] where she has lived the last 22 years. Celeste is . She stated she has family in [place] and she is planning to move there to be closer to them. CURRENT FUNCTIONAL STATUS:: Celeste was lying in bed when talking with CM. CM and patient had met before so checked in on how moving was coming along. Celeste states she has some things packed up but there is still a long ways to go to get things together that she would like to bring with her to [place] that has sentimental value, and some things she could sell before leaving, maybe through in a moving sale. Celeste talked about stressors for her recently, like having no heat and frozen pipes when released from the hospital in October, as well as a car that didn't start because it needed a new battery, or not having her house sell as quickly as she was hoping, and needing help going through her things. On her last d/c, CM connected her with [employer] and [employer] for support with these concerns. CM provided a community moving service for possible estimate of assisting with packing and moving; [employer]. CM following. ADVANCE DIRECTIVES:: None on file for [facility] Has patient been provided with info about the portal/API?: Yes Did the patient sign up for the portal?: No CODE STATUS:: DNR/DNI INSURANCE COVERAGE / FINANCIAL ISSUES:: AARP/UN.HLTH [employer] Replacement CURRENT HOME/COMMUNITY SERVICES/EQUIPMENT:: Home oxygen PRIMARY CARE PHYSICIAN:: Ginny Scherer POTENTIAL DISCHARGE NEEDS:: follow up with community providers: PCP, Cardiology and Pulmonology PATIENT/FAMILY EDUCATION NEEDS:: Review of discharge instructions, activity, limitations, follow up plan, discuss Ask Me Three ANTICIPATED BARRIERS TO DISCHARGE:: None TRANSPORTATION:: via private vehicle with family PLAN:: Anticipate Celeste will be discharged home, possibly with resumption of home health services. She will follow up with community providers and plan of care and transport with family. CM will follow and continue to assess for discharge needs. 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) Acute renal failure (ARF) (Acute) Shortness of breath (Acute) Fatigue (Acute) Pulmonary arterial hypertension (Acute) Falls frequently (Acute) Hypomagnesemia (Acute) CHF (congestive heart failure) (Chronic) Status post total right knee replacement (Acute 05/30/20) Abnormal breast finding (Acute 01/19/18) Adenoma of colon (Acute 01/19/18) Bruising (Acute 01/19/18) Chronic depression (Acute 01/19/18) Degenerative arthritis of right knee (Chronic 04/23/15) Disorder of vulva (Acute 01/19/18) Edema leg (Acute 01/19/18) Obesity (Acute 07/11/13) Osteoarthritis (Acute 07/11/13) Other forms of dyspnea (Acute 01/19/18) Overactive bladder (Acute 01/19/18) Primary osteoarthritis of both knees (Chronic 10/29/15) Synvisc injection: 11/04/2019; 05/03/2019 Shortness of breath (Acute 01/19/18) Tendinitis of left shoulder (Acute 01/07/16) Rectal hemorrhage (Acute) Acute on chronic diastolic heart failure (Acute) Chest pain (Acute) Atrial fibrillation (Chronic) SOB (shortness of breath) (Acute) CHF (congestive heart failure) (Chronic) Cough (Acute) Right rotator cuff tendonitis (Acute) Medical History Noncompliance with medication regimen Acute exacerbation of CHF (congestive heart failure) History of cardioversion Cataracts, bilateral Tendonitis surgery r arm Depression Osteoarthritis Morbid obesity H/O adenomatous polyp of colon Hypothyroidism (07/11/13) Essential hypertension (07/11/13) AF (paroxysmal atrial fibrillation) (01/19/18) Hypertension Surgical History History of carpal tunnel release r wrist H/O: hysterectomy H/O colonoscopy x2 Abdominal hysterectomy Family History Other Heart disease Social History Smoking/Tobacco Use Status: Former Tobacco Use Smoking risk assessment performed?: Yes Alcohol Intake: former Drug use: Never Substance use type: does not use Housing: house Current gender identity: female Do you feel safe at home: Yes Do you feel safe in your relationship?: Yes Additional Social history: Lives in [place] with Ed who is starting to have cognitive problems. They have financial issues SDOH(Care Management) Screening Will the Patient Participate in the Screening?: Yes Do you worry about having a steady place to live?: yes Problems where you live: no known problems In the past 12 months, have you had to go without electric, gas, oil or water in your home?: yes Have you or anyone in your house had to go without enough food to eat?: no Has lack of transportation kept you from medical appointments or from doing things needed for daily living?: no Has anyone in your support network made you feel unsafe for any reason?: no Health Related Social Needs Health related social needs: housing instability, housed, with risk of homelessness(Z59.811) and material hardship(utilities)(Z59.87)
[2023-11-28] MEDS: Bisoprolol 5 MG TAB 2.5 MG PO (11:01)
[2023-11-28] MEDS: Potassium Chloride 20 MEQ TABCR PO ×3 (11:02→19:58)
[2023-11-28] MEDS: Spironolactone 25 MG TAB PO (11:02)
--- NOTE | 2023-11-28 12:40 | W.PC.ACHO ---
Registration Status: ADM IN Primary Language: Preferred Language: Tajik ED Information & Data Chief Complaint SOB 11/28/23 05:48 Triage Note PT has HX of COPD. PT has 11/28/23 05:30 had increased SOBX1 week. pt became SOB while walking to [place] for EMS PT was in afib with RVR. PT was given 5mg metoprolol, one albuterol treatment and 1 duo neb. Medical / Surgical History (Last Reviewed 11/28/23 @ 11:36 by Michael Ingram MD) Noncompliance with medication regimen Acute exacerbation of CHF (congestive heart failure) History of cardioversion Cataracts, bilateral Tendonitis Depression Osteoarthritis Morbid obesity H/O adenomatous polyp of colon Hypothyroidism (07/11/13) Essential hypertension (07/11/13) AF (paroxysmal atrial fibrillation) (01/19/18) Hypertension (Last Reviewed 11/28/23 @ 11:36 by Michael Ingram MD) History of carpal tunnel release H/O: hysterectomy H/O colonoscopy Abdominal hysterectomy Most Recent Vital Signs Temperature 36.8 C 11/28/23 12:24 Temperature Source Temporal Artery Scan 11/28/23 08:29 Pulse 80 11/28/23 12:24 Pulse 96 H 11/28/23 12:24 Respiratory Rate 27 H 11/28/23 12:24 Respiratory Effort Normal, Non-Labored 11/28/23 08:29 Respiratory Depth Normal 11/28/23 08:29 Respiratory Pattern Tachypnea 11/28/23 08:29 Blood Pressure 112/86 11/28/23 12:24 Blood Pressure Mean 96 11/28/23 12:24 Blood Pressure Position Supine 11/28/23 08:29 Pulse Oximetry 92 11/28/23 12:24 Oxygen Delivery Method Nasal Cannula 11/28/23 08:29 Oxygen Flow Rate 2 11/28/23 08:29 Pain Level 8 11/28/23 09:15 Comment 2L NC 11/28/23 12:24 Allergies adhesive Allergy (Severe, Verified 11/28/23 07:14) skin rash, blisters lisinopril Allergy (Intermediate, Verified 11/28/23 07:14) Nausea nausea amoxicillin [Amoxicillin] Allergy (Mild, Verified 11/28/23 07:14) TINGLING oxybutynin Allergy (Unknown, Verified 11/28/23 07:14) PT CAN'T REMEMBER adhesive tape Allergy (Verified 11/28/23 07:14) Hives Hives Active Medications Generic Name Dose Route Start Last Admin Trade Name Rebeca PRN Reason Stop Dose Admin Acetaminophen 0 mg 11/28/23 08:26 11/28/23 09:15 Acetaminophen 325 Mg Tab PO 650 mg Q4H PRN PRN Administration Diltiazem HCl 125 mg/ Sodium 125 mls @ 10 mls/hr 11/28/23 05:45 11/28/23 07:00 Chloride IV 5 mg/hr INFUSION CYNDIE 5 mls/hr Titration Protocol 10 MG/HR Sodium Chloride 0 ml 11/28/23 08:30 11/28/23 12:33 Normal Saline Flush 10 Ml Syr IVP Not Given BID CYNDIE IV IV Catheter Type [] Peripheral IV IV Catheter Type [Left Saline Lock Antecubital] IV Catheter Gauge [] 18 IV Catheter Gauge [Left 20 Antecubital] Diet Orders Category Date Time Status Heart Healthy Eating [DIET] Nutrition 11/28/23 Breakfast Active Diagnostics 11/28/23 11/28/23 11/28/23 Range/Units 08:55 05:46 05:46 WBC 6.84 (4.4-10.8) 10^3/uL RBC 3.84 L (3.93-5.22) 10^6/uL Hgb 12.2 (11.2-15.7) g/dL Hct 38.9 (36.0-46.0) % MCV 101 H (80-95) fL MCH 31.8 (27.0-33.0) pg MCHC 31.4 L (32.0-36.0) % RDW 14.4 (11.7-14.6) % Plt Count 263 (130-400) 10^3/uL MPV 9.5 (8.0-11.0) fL Immature Gran % 0.6 Neutrophils % 71.8 Lymphocytes % 16.5 Monocytes % 8.0 Eosinophils % 2.5 Basophils % 0.6 Nucleated RBC % 0.0 (0.0-0.3) % Absolute Neutrophils 4.91 (1.2-6.7) 10^3/uL Absolute Lymphocytes 1.13 L (1.2-3.4) 10^3/uL Absolute Monocytes 0.55 (0.1-0.8) 10^3/uL Absolute Eosinophils 0.17 (0.0-0.7) 10^3/uL Absolute Basophils 0.04 (0.0-0.2) 10^3/uL PT 21.0 H (9.1-11.1) sec INR 2.2 H (0.9-1.1) VBG pH 7.38 (7.31-7.41) VBG pCO2 56 H (41-51) mmHg VBG pO2 23 mmHg VBG HCO3 33 H (23-28) mmol/L VBG Total CO2 31 H (24-29) mmol/L VBG O2 Saturation 37 % VBG Base Excess 8 H (-2-3) mmol/L Sodium 142 (136-145) mmol/L Potassium 3.8 (3.5-5.1) mmol/L Chloride 101 (98-107) mmol/L Carbon Dioxide 32.2 H (21.0-32.0) mmol/L Anion Gap 8.8 (3-11) mmol/L BUN 22 H (7-18) mg/dL Creatinine 1.4 H (0.55-1.02) mg/dL Est GFR (CKD-EPI 2020) 37.33 (mL/min/1.73m2) Glucose 117 H (74-106) mg/dL Calcium 9.1 (8.5-10.1) mg/dL Magnesium 1.9 (1.8-2.4) mg/dL Total Bilirubin 0.6 (0.2-1.0) mg/dL AST 26 (15-37) U/L ALT 24 (14-59) U/L Alkaline Phosphatase 115 (46-116) U/L Troponin I < 50 < 50 < 50 (< or =60) ng/L NT-Pro-B Natriuret Pep 2030 H (<300) pg/mL Total Protein 7.5 (6.4-8.2) g/dL Albumin 2.6 L (3.4-5.0) g/dL TSH 2.60 (0.36-3.74) uIU/Ml Intake and Output - 24 Hour Total 11/28/23 05:22 thru 11/28/23 12:32 Intake Total 260.333 Output Total 2925 Balance -8434.667 Weight 104.9 kg Intake: IV 20.333 Oral 240 Output: Urine 2925 Other: Urine Color Pale Urine Appearance Clear Comment green in place # Voids 1 Urinary Catheter Urinary Catheter Date of 11/28/23 Insertion [Uretheral (Green)] Time of insertion [Uretheral ( 06:45 Green)] Falls Risk Assessment History of Falls Previous History 11/28/23 08:29 Contributing Factors Impairments,Incontinence, 11/28/23 08:29 Medications Ambulatory Aids Uses ambulatory device 11/28/23 08:29 Tubes/Lines With any additional score 11/28/23 08:29 Gait Evaluation No gait disturbance 11/28/23 08:29 Cognition No cognitive impairment 11/28/23 08:29 Fall Total Score 59 11/28/23 08:29 Level of Risk High Risk 11/28/23 08:29 Problems (Last Reviewed 11/28/23 @ 11:36 by Michael Ingarm MD) Chronic obstructive lung disease (Chronic 07/11/13) CHF (congestive heart failure) (Chronic) Atrial fibrillation (Chronic) v v v v v v v v v Sending and/or Receiving Nurses: Please use comment section below to note any information pertinent to the patient hand-off not included above. Information / Comments: diltiazem drip rate at 5ml/hr (5mg/hr) Report received from: Trisha Guzman RN
[2023-11-28] MEDS: Magnesium Oxide 400 MG TAB PO ×2 (13:38→19:58)
[2023-11-28] MEDS: Famotidine 20 MG TAB PO (13:38)
[2023-11-28] MEDS: Cyanocobalamin 500 MCG TAB 1000 MCG PO (13:38)
[2023-11-28] MEDS: Furosemide 40 MG/4 ML VIAL IVP (16:03)
[2023-11-28] MEDS: Losartan 50 MG TAB PO (19:40)
[2023-11-28] MEDS: buPROPion-CR 100 MG TABCR PO (19:58)
[2023-11-28] MEDS: Normal Saline Flush 10 ML SYR IVP (20:00)
[2023-11-28 20:07] LABS: Anion Gap 6.4 mmol/L (3-11); BUN 28 mg/dL (7-18); CO2 35.6 mmol/L (21.0-32.0); CREATININE 1.3 mg/dL (0.55-1.02); Calcium 9.5 mg/dL (8.5-10.1); Chloride 98 mmol/L (98-107); Glucose 115 mg/dL (74-106); Magnesium 1.8 mg/dL (1.8-2.4); Potassium 3.8 mmol/L (3.5-5.1); Sodium 140 mmol/L (136-145)
[2023-11-29] VITALS (24 sets, daily range): BP systolic 103–135; BP diastolic 72–88; PULSE 70–121; RESP 5–28; TEMP 36.4–37.1; O2SAT 92–97
[2023-11-29] MEDS: Levothyroxine 100 MCG TAB PO (05:34)
[2023-11-29 06:14] LABS: Anion Gap 6.2 mmol/L (3-11); BUN 27 mg/dL (7-18); CO2 33.8 mmol/L (21.0-32.0); CREATININE 1.3 mg/dL (0.55-1.02); Calcium 9.4 mg/dL (8.5-10.1); Chloride 99 mmol/L (98-107); Glucose 112 mg/dL (74-106); Sodium 139 mmol/L (136-145)
[2023-11-29] MEDS: dilTIAZem 30 MG TAB PO ×3 (07:09→19:23)
[2023-11-29] MEDS: Acetaminophen 325 MG TAB PO (09:02)
[2023-11-29] MEDS: Cholecalciferol (Vitamin D3) 1,000 UNIT TAB 2000 UNITS PO (09:03)
[2023-11-29] MEDS: Potassium Chloride 20 MEQ TABCR PO (09:03)
[2023-11-29] MEDS: Famotidine 20 MG TAB PO (09:04)
[2023-11-29] MEDS: Cyanocobalamin 500 MCG TAB 1000 MCG PO (09:04)
[2023-11-29] MEDS: Losartan 50 MG TAB PO ×2 (09:04→19:25)
[2023-11-29] MEDS: Normal Saline Flush 10 ML SYR IVP ×2 (09:04→19:27)
[2023-11-29] MEDS: Spironolactone 25 MG TAB PO (09:04)
[2023-11-29] MEDS: buPROPion-CR 100 MG TABCR PO ×2 (09:04→19:25)
[2023-11-29] MEDS: Metoprolol 25 MG TAB PO ×2 (09:04→16:53)
[2023-11-29] MEDS: Magnesium Oxide 400 MG TAB PO ×2 (09:04→19:23)
[2023-11-29] MEDS: Furosemide 40 MG/4 ML VIAL IVP ×2 (09:05→16:52)
--- NOTE | 2023-11-29 10:19 | W.PM.PROGNOT ---
Date of Service Date of service: 11/29/23 Time of Service: 10:20 Assessment and Plan Assessment and plan (1) Atrial fibrillation: Status: Chronic Assessment and plan: rate improving. now on diltiazem 30 mg tid, I have added metoprolol 25 mg q8h. she is already on warfarin, INR is 2.0, down from 2.2, will increase to 3.5 mg tonght then monitor INR response. She says that 2.0 to 2.2 is good for her as she has been running around 1.7 to 1.8. She usually takes only 2.5 mg warfarin nightly. Qualifiers: Atrial fibrillation type: persistent (not longstanding) Qualified Code(s): I48.19 - Other persistent atrial fibrillation (2) Acute exacerbation of CHF (congestive heart failure): Assessment and plan: spironolactone added, continue iv lasix, monitor urine output and BMP. Qualifiers: Heart failure type: combined systolic and diastolic Qualified Code(s): I50.43 - Acute on chronic combined systolic (congestive) and diastolic (congestive) heart failure (3) Chronic obstructive lung disease: Status: Chronic Assessment and plan: add Spiriva and Symbicort, and DuoNEB Qualifiers: COPD type: unspecified COPD Qualified Code(s): J44.9 - Chronic obstructive pulmonary disease, unspecified (4) Hypertension: Assessment and plan: continue losartan Qualifiers: Hypertension type: primary hypertension Qualified Code(s): I10 - Essential (primary) hypertension (5) Discharge planning issues: Status: Deleted Assessment and plan: hopefully home tomorrow. she is full CODE STATUS per her request. Subjective Subjective Interval history since last seen: Celeste has harsh nonproductive cough. She denies any choking spells. She says that she will often go into a coughing jag d/t her COPD. She has no one to bring in her Trelegy. I will prescribe Spirva and Symbicort while she is here. I have added DuoNeb treatments and cough medication. Her afib rate is better controlled. I am add metoprolol to her regimen. She has not required resumption of the diltiazem drip. I think she can go to med/surg today. She remains on iv lasix for her CHF. Exam Narrative Exam Narrative: Celeste is sitting up in bed. She just finished a coughing paroxysm.. She is now calme and in no acute respiratory distress Lungs: diffuse expiratory wheezing Heart: irregularly irregular, rate controlled in the 90's Abdomen: obese, soft, nontender Legs: 1+ pitting edema of her feet/ankles and lower tibia w/ bronze discoloration of her skin c/w stasis skin changes. Objective Last Vital Signs Temp 36.7 C 11/29/23 08:40 Pulse 90 11/29/23 08:57 Resp 27 H 11/29/23 08:57 BP 108/72 11/29/23 08:57 Pulse Ox 94 11/29/23 08:57 Laboratory Results - last 24 hr 11/28/23 11/28/23 11/29/23 08:55 19:47 05:49 PT 19.0 H INR 2.0 H Sodium 140 139 Potassium 3.8 4.0 Chloride 98 99 Carbon Dioxide 35.6 H 33.8 H Anion Gap 6.4 6.2 BUN 28 H 27 H Creatinine 1.3 H 1.3 H Est GFR (CKD-EPI 2020) 40.80 40.80 Glucose 115 H 112 H Calcium 9.5 9.4 Magnesium 1.8 TSH 2.60 Time Spent with Patient Time Spent with Patient: 35-49 minutes Time was spent: preparing to see the patient(eg.review tests), ordering medications,tests, procedures, referring, communicating with other health medicare sales representative, indepentently interpreting results, counseling the patient and care coordination
[2023-11-29] MEDS: Albuterol/Ipratropium 3 ML UPD VIAL UPD (10:24)
[2023-11-29] MEDS: Benzonatate 200 MG CAP PO ×3 (10:25→19:25)
--- NOTE | 2023-11-29 11:48 | IN_ITS ---
PT Notes Visit Reasons: Afib w/RVR,CHF Inpatient Physical Therapy Evaluation Date: November 29, 2023 Referring Doctor: Dr. Michael Ingram PT Orders: PT CONSULT: Safety consult for D/C Precautions: Standard, fall Patient Profile/Admitting Diagnosis: Patient is an 83-year-old female referred for inpatient evaluation to assess for safety consult for discharge. Admitted to and [facility] yesterday secondary to A-fib exacerbation. Patient states she lives alone and is in the process of selling her home to move closer to family in [place]. Her past medical history is significant for atrial fibrillation and COPD, presented to the emergency department S[place] evening with a complaint of shortness of breath and chest pressure. The patient reports that the shortness of breath has been worsening over the course of approximately 1 week and she was concerned that she was to be developing a COPD exacerbation. When she got up to go to the bathroom out of bed, the patient developed chest heaviness. She indicated that she is also been having increasing edema in her bilateral lower extremities, over her baseline edema level. When EMS found the patient, she was struggling to breathe and was in a rapid atrial fibrillation in the 150s. 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) Acute renal failure (ARF) (Acute) Shortness of breath (Acute) Fatigue (Acute) Pulmonary arterial hypertension (Acute) Falls frequently (Acute) Hypomagnesemia (Acute) CHF (congestive heart failure) (Chronic) Status post total right knee replacement (Acute 05/30/20) Abnormal breast finding (Acute 01/19/18) Adenoma of colon (Acute 01/19/18) Bruising (Acute 01/19/18) Chronic depression (Acute 01/19/18) Degenerative arthritis of right knee (Chronic 04/23/15) Disorder of vulva (Acute 01/19/18) Edema leg (Acute 01/19/18) Obesity (Acute 07/11/13) Osteoarthritis (Acute 07/11/13) Other forms of dyspnea (Acute 01/19/18) Overactive bladder (Acute 01/19/18) Primary osteoarthritis of both knees (Chronic 10/29/15) Synvisc injection: 11/04/2019; 05/03/2019Shortness of breath (Acute 01/19/18) Tendinitis of left shoulder (Acute 01/07/16) Rectal hemorrhage (Acute) Acute on chronic diastolic heart failure (Acute) Chest pain (Acute) Atrial fibrillation (Chronic) SOB (shortness of breath) (Acute) CHF (congestive heart failure) (Chronic) Cough (Acute) Right rotator cuff tendonitis (Acute) Medical History Noncompliance with medication regimen Acute exacerbation of CHF (congestive heart failure) History of cardioversion Cataracts, bilateral Tendonitis surgery r arm Depression Osteoarthritis Morbid obesity H/O adenomatous polyp of colon Hypothyroidism (07/11/13) Essential hypertension (07/11/13) AF (paroxysmal atrial fibrillation) (01/19/18) Hypertension Surgical History History of carpal tunnel release r wrist H/O: hysterectomy H/O colonoscopy [id number] hysterectomy Social History/Home Situation: Lives alone. Looking to relocate to [place]. At baseline patient states that she would ambulate with a standard cane. She also has a 4 wheeled walker. Uses supplemental O2 at home Current Functional Limitations: Community distance ambulation Equipment Owned/DME: Supplemental oxygen, cane, four-wheel walker Subjective: Reports that she is feeling much better compared to time of arrival. No complaints of pain other than some mild aches in her right shoulder. Is anxious to return home tomorrow. Does not receive any significant barriers getting better at home. Objective: General Observation: Very pleasant, catheter, telemetry, supplemental O22.5 Liters Mental Status: Alert and oriented x 3. Pain: 0/10 Vital Signs: 93% O2 saturation at start of initial evaluation. This did desat to 91% following bed mobility and short distance ambulation in room. Rebounded to 93% after 1 minute upon sitting. ROM: Right Upper Extremity: Glenohumeral joint flexion, abduction, elbow flexion and extension within functional limits pain-free Left Upper Extremity: Glenohumeral joint flexion, abduction, elbow flexion and extension within functional limits pain-free Right Lower Extremity: Hip flexion, abduction, knee flexion and extension, ankle plantarflexion and dorsiflexion within functional limits pain-free Left Lower Extremity: Hip flexion, abduction, knee flexion and extension, ankle plantarflexion and dorsiflexion within functional limits pain-free. Strength: Right Upper Extremity: Glenohumeral joint flexion, abduction 4 -/5, elbow flexion and extension 4/5. Good plastic welder Left Upper Extremity: Glenohumeral joint flexion, abduction 4/5, elbow flexion and extension 4/5. Good plastic welder Right Lower Extremity: Perform straight leg raise with 0 degree lag. Hip flexion 4/5, hamstrings 4 -/5, quads 4/5, ankle dorsiflexion and plantarflexion 4/5 Left Lower Extremity: Perform straight leg raise with 0 degree lag. Hip flexion 4/5, hamstrings 4 -/5, quads 4/5, ankle dorsiflexion and plantarflexion 4/5. Sensation: Intact sensation light touch bilateral lower extremities Bed Mobility/Transfers: Supine?sit: Head of bed 45 degrees standby assist Sit to stand: To a front wheel walker with contact-guard x 1 Stand to sit: From front wheel walker with contact-guard x 1. Nursing notified when patient was transferred to chair as she remained there for lunch. Gait: Contact-guard x 1 with front wheel walker 10 feet x 2. Balance: Static Sitting: Good Dynamic Sitting: Good Static Standing: Fair Dynamic Standing: Fair Negative Romberg Special Tests: Mobility Limitations Standardized Measure [facility] AM-PAC 6 clicks Basic Mobility Inpatient Short Form: Raw Score: 22 CMS Score:21% Informed Consent/Education: Patient instructed in purpose of PT consult and plan of care. Assessment: Patient is a 83 year old female referred to physical therapy services with the diagnosis of atrial fibrillation exacerbation. Patient presents with clinical signs and symptoms consistent with current/admitting diagnoses that have resulted to mobility limitations, gait instability, generalized weakness, and overall ADL decline as demonstrated by the following impairment level findings: 1. Decreased strength to B LE major muscle groups 2. Impaired activity tolerance Impairments are contributing to the following functional limitations: 1. Difficulty with ambulation without assistive device and physical assistance 2. Increased completion time for mobility ADL performance 3. Increased risk for falls 4. Difficulty with managing steps alone safely Patient is assessed as a 21552 moderate complexity based on the following: History: 86-year-old female with past medical history as indicated above Examination: Demonstrable impairment in strength, balance, and mobility level with underlying impairments and functional limitations as exhibited above as well as deficit score of function 21% utilizing the [facility] Mobility Inpatient Short Form Presentation: Evolving Decision Makin moderate complexity Goals: Goals X1 week 1. Supine-Sit independent 2. Sit-Supine independent 3. Sit-Stand independent 4. Stand-Sit independent with FWW 5. Bed-Chair independent with FWW 6. Chair-Bed independent with FWW 7. Independent gait on level surface with use of FWW for at least 65 feet without report of dyspnea 8. Independent stair negotiation while holding onto B rails without reports of dyspnea 9. Independent with home exercise program 10. Good static and dynamic standing balance/tolerance Plan of Care/Treatment Plan: 1-2x/day, 7 days/week x 1 week. Plan of care has been reviewed with the SOFTWARE APPLICATIONS ARCHITECT providing the service under Physical Therapy direction. Initiate Physical Therapy intervention for pain management as needed, strengthening, bed mobility, transfers, gait, stairs, balance training, and use of assistive device. DISCHARGE RECOMMENDATIONS: [] Home with no services [] [X] Home with services. Patient will benefit from home health PT services in order to progress mobility level using least restrictive assistive ambulatory device, assess home safety, identify additional equipment needs, and establish a functional maintenance program that will increase ability of patient to remain at home. [] Home with outpatient PT [] [] SNF for continued rehabilitation [] [] Donor Floor Technician Care [] [] SNF versus LTC based on ability to participate and progress [] TREATMENT CODE/TIME: [] Thank you for this referral. Please sign an return this page within 30 days if you agree with the above POC. Thank you! Physician Signature Date [facility] Willem Myers PT, DPT Disclaimer: This note was created using Wordy voice recognition software. It was reviewed for major content. However, there may be multiple small discrepancies and errors due to the voice recognition aspects of the software.
[2023-11-29] MEDS: Warfarin 1 MG TAB PO (19:26)
[2023-11-30] VITALS (19 sets, daily range): BP systolic 96–119; BP diastolic 66–92; PULSE 64–94; RESP 5–43; TEMP 36.3; O2SAT 94–97
[2023-11-30] MEDS: Melatonin 3 MG TAB 6 MG PO ×2 (00:12→21:46)
[2023-11-30] MEDS: Metoprolol 25 MG TAB PO ×4 (00:12→23:43)
[2023-11-30] MEDS: guaiFENesin/D-METHORPHAN HB 5 ML CUP PO (05:07)
[2023-11-30 06:04] LABS: INR 2.1 (0.9-1.1)
[2023-11-30] MEDS: Levothyroxine 100 MCG TAB PO (06:10)
--- NOTE | 2023-11-30 08:22 | CMPROGNOTE_ITS ---
Date of service: 11/30/23 Care Management Progress Note Progress Note Text Progress Note Text: S/O: Celeste was sitting up in bed when talking with CM. CM talked with RN who had concerns of Celeste discharging home because how weak she is and wondered how close to her baseline she may be and if she has support at home. Pt and CM discussed support for home. Celeste lives alone and and when at home plans her steps of how much oxygen she will require, She reports she does not qualify for increased oxygen at home due to the condition of her lungs. Celeste discussed she keeps her phone with her when home incase she needs anything. She has HH RN services a few times a week. There is no family that lives close by but she has a neighbor Alex who can offer support if absolutely needed. She describes being independent at baseline driving herself where she needs to go and providing all ADLs. She has been working with social [employer] to get more income as her passed in September; they were 34 years. CM following. A: Celeste is an 82 year old woman admitted on 10/30/23 with CHF and COPD P:Anticipate Celeste will be discharged home, with resumption of HH RN services. She will follow up with community providers and plan of care and transport with family. CM will follow and continue to assess for discharge needs. SDOH(Care Management) Screening Will the Patient Participate in the Screening?: Yes Do you worry about having a steady place to live?: yes Problems where you live: no known problems In the past 12 months, have you had to go without electric, gas, oil or water in your home?: yes Have you or anyone in your house had to go without enough food to eat?: no Has lack of transportation kept you from medical appointments or from doing things needed for daily living?: no Has anyone in your support network made you feel unsafe for any reason?: no Health Related Social Needs Health related social needs: housing instability, housed, with risk of homelessness(Z59.811) and material hardship(utilities)(Z59.87)
--- NOTE | 2023-11-30 08:28 | PT.INNT ---
PT Notes Visit Reasons: Afib w/RVR,CHF Pt approached for therapy this morning, pt refused to participate reports she is saving her energy for her transport for home this morning.
[2023-11-30] MEDS: dilTIAZem 30 MG TAB PO ×3 (09:17→19:55)
[2023-11-30] MEDS: Furosemide 40 MG/4 ML VIAL IVP ×2 (09:17→16:15)
[2023-11-30] MEDS: Benzonatate 200 MG CAP PO ×3 (09:18→19:56)
[2023-11-30] MEDS: Magnesium Oxide 400 MG TAB PO ×2 (09:18→19:56)
[2023-11-30] MEDS: Losartan 50 MG TAB PO ×2 (09:18→19:54)
[2023-11-30] MEDS: Cholecalciferol (Vitamin D3) 1,000 UNIT TAB 2000 UNITS PO (09:18)
[2023-11-30] MEDS: Spironolactone 25 MG TAB PO (09:18)
[2023-11-30] MEDS: Cyanocobalamin 500 MCG TAB 1000 MCG PO (09:18)
[2023-11-30] MEDS: Famotidine 20 MG TAB PO (09:18)
[2023-11-30] MEDS: Normal Saline Flush 10 ML SYR IVP ×2 (09:19→20:20)
[2023-11-30] MEDS: buPROPion-CR 100 MG TABCR PO ×2 (09:19→19:55)
--- NOTE | 2023-11-30 11:12 | PHA.REVIEW2 ---
Pharmacy Admission Review Admission Clinical Review Admission Pharmacy Review: adhesive Allergy (Severe, Verified 11/28/23 07:14) skin rash, blisters lisinopril Allergy (Intermediate, Verified 11/28/23 07:14) Nausea amoxicillin [Amoxicillin] Allergy (Mild, Verified 11/28/23 07:14) TINGLING oxybutynin Allergy (Unknown, Verified 11/28/23 07:14) PT CAN'T REMEMBER adhesive tape Allergy (Verified 11/28/23 07:14) Hives Resuscitation Status Full Code Height 5 ft 4 in Weight 101.4 kg Pharmacy Admission Review Renal Dosing Renal Dosing: BUN 27 mg/dL (7-18) H 11/29/23 05:49 Creatinine 1.3 mg/dL (0.55-1.02) H 11/29/23 05:49 Medications needing adjustments: Intervened (CrCl 37.91 mL/min) List of meds needing interventions: Decreased famotidine from 20mg daily to 10mg daily (provider aware). All other current meds okay. Anticoagulation Anticoagulation: Hgb 12.2 g/dL (11.2-15.7) 11/28/23 05:46 Hct 38.9 % (36.0-46.0) 11/28/23 05:46 Plt Count 263 10^3/uL (130-400) 11/28/23 05:46 INR 2.1 (0.9-1.1) H 11/30/23 05:27 Creatinine 1.3 mg/dL (0.55-1.02) H 11/29/23 05:49 DVT Prophylaxis: Reviewed Medications: Warfarin (2.5mg daily) Relevant Labs Relevant Labs: Sodium 139 mmol/L (136-145) 11/29/23 05:49 Potassium 4.0 mmol/L (3.5-5.1) 11/29/23 05:49 Chloride 99 mmol/L (98-107) 11/29/23 05:49 Magnesium 1.8 mg/dL (1.8-2.4) 11/28/23 19:47 Electrolytes, C-Reactive P, ESR: Reviewed (INR 2.1, no other new labs for today) Cardiac Review Cardiac Review: Troponin I < 50 ng/L (< or =60) 11/28/23 08:55 NT-Pro-B Natriuret Pep 2030 pg/mL (<300) H 11/28/23 05:46 BP, HR, EF%: Reviewed (RR 27, HR and BP WNL) QTc Review QTc: Reviewed (473 from 11/28/23) IV to PO Switch IV Medications: Reviewed (IV furosemide) Home Meds Home Med List reviewed: Reviewed Relevent Home Meds Not ordered & why?: Bisoprolol (discontinued during last admission), chlorthalidone, potassium and torsemide (has order for IV Lasix) Patient's Trelegy was put in as patients own med but per H+P, patient not able to have that brought in. I did a formulary switch to Symbicort and Spiriva. Current Meds Current Medication Order Review: Reviewed Comments: INR was 2 yesterday. Per progress note was increased last night (one time 1mg order). INR this morning was 2.1
[2023-11-30] MEDS: Albuterol/Ipratropium 3 ML UPD VIAL UPD (14:50)
--- NOTE | 2023-11-30 16:18 | PGE_ITS ---
Date of Service Date of service: 11/30/23 Time of Service: 16:18 Assessment and Plan Assessment and plan (1) Atrial fibrillation: Status: Chronic Assessment and plan: -rate improving -continue diltiazem 30 mg tid, metoprolol 25 mg q8h. -continue warfarin, INR is 2.0, down from 2.2, increased to 3.5 mg PM 11/28 then monitor INR response. Qualifiers: Atrial fibrillation type: persistent (not longstanding) Qualified Code(s): I48.19 - Other persistent atrial fibrillation (2) Acute exacerbation of CHF (congestive heart failure): Assessment and plan: -spironolactone added, continue iv lasix, monitor urine output and BMP. Qualifiers: Heart failure type: combined systolic and diastolic Qualified Code(s): I50.43 - Acute on chronic combined systolic (congestive) and diastolic (congestive) heart failure (3) Chronic obstructive lung disease: Status: Chronic Assessment and plan: -continue Spiriva and Symbicort, and DuoNEB Qualifiers: COPD type: unspecified COPD Qualified Code(s): J44.9 - Chronic obstructive pulmonary disease, unspecified (4) Hypertension: Assessment and plan: -continue losartan Qualifiers: Hypertension type: primary hypertension Qualified Code(s): I10 - Essential (primary) hypertension Subjective Subjective Interval history since last seen: Patient states that she is feeling better this afternoon but did have some difficulty ambulating and felt significantly short of breath this morning. She appreciates being able to stay an additional night and believes that she will be ready to go home tomorrow. Exam Narrative Exam Narrative: Obese elderly female lying in the chair no acute distress, ANO x 4, heart regular rate and rhythm, [address] cannula in place with mild diffuse and expiratory wheezing heard throughout Objective Last Vital Signs Temp 97.3 F L 11/30/23 06:14 Pulse 85 11/30/23 14:26 Resp 23 11/30/23 14:26 BP 110/75 11/30/23 14:26 Pulse Ox 94 11/30/23 14:26 Laboratory Results - last 24 hr 11/30/23 05:27 PT 20.0 H INR 2.1 H Time Spent with Patient Time Spent with Patient: >50 minutes Time was spent: preparing to see the patient(eg.review tests), obtaining and/or reviewing separately otained hiistory, ordering medications,tests, procedures, referring, communicating with other health home care administrator, indepentently interpreting results, counseling the patient and care coordination
[2023-11-30] MEDS: Budesonide/Formoterol 80/4.5 6.9 GM 60 PUFF INH IH (20:44)
[2023-11-30] MEDS: Acetaminophen 325 MG TAB PO (21:46)
[2023-11-30] MEDS: Pramipexole 0.25 MG TAB 0.125 MG PO (21:46)
[2023-12-01 00:12] VITALS: BP 103/70; PULSE 86; RESP 18; TEMP 36.1; O2SAT 94
--- NOTE | 2023-12-01 00:13 | NUR.NOTE ---
Transferred from ICu to unit via w/c able to ambulate has o2 via nc@2l. no c/o pain or distress at this time. No c/o sob. In bed watching TV call santiago in reach.Nursing Note:
[2023-12-01 02:13] VITALS: BP 115/65; PULSE 87; RESP 18; TEMP 36.6; O2SAT 94
[2023-12-01] MEDS: Levothyroxine 100 MCG TAB PO (06:36)
[2023-12-01 07:12] LABS: INR 2.4 (0.9-1.1); Prothrombin Time 22.1 sec (9.1-11.1)
[2023-12-01] MEDS: Tiotropium Bromide-Respimat 10 PUFF INH 2 PUFF IH (07:52)
[2023-12-01] MEDS: Budesonide/Formoterol 80/4.5 6.9 GM 60 PUFF INH IH (07:52)
[2023-12-01 07:53] VITALS: O2SAT 92
[2023-12-01 08:30] VITALS: BP 133/83; PULSE 84; RESP 18; TEMP 35.2; O2SAT 95
[2023-12-01] MEDS: buPROPion-CR 100 MG TABCR PO (08:37)
[2023-12-01] MEDS: Magnesium Oxide 400 MG TAB PO (08:37)
[2023-12-01] MEDS: Benzonatate 200 MG CAP PO (08:38)
[2023-12-01] MEDS: Spironolactone 25 MG TAB PO (08:38)
[2023-12-01] MEDS: Cholecalciferol (Vitamin D3) 1,000 UNIT TAB 2000 UNITS PO (08:38)
[2023-12-01] MEDS: Cyanocobalamin 500 MCG TAB 1000 MCG PO (08:38)
[2023-12-01] MEDS: Losartan 50 MG TAB PO (08:39)
[2023-12-01] MEDS: Metoprolol 25 MG TAB PO (08:39)
[2023-12-01] MEDS: dilTIAZem 30 MG TAB PO (08:39)
[2023-12-01] MEDS: Famotidine 20 MG TAB 10 MG PO (08:40)
[2023-12-01] MEDS: Normal Saline Flush 10 ML SYR IVP (08:40)
--- NOTE | 2023-12-01 10:44 | PDOC.HHF2F_ITS ---
Home Health Referral Home Health Orders Clinical synopsis of why skilled professionals are needed: COPD on chronic oxygen 2L NC, CHF, a-fib with multiple medication changes Registered Nurse: Check all that apply Instruct on new or changed medication(s)/assess compliance: Ordered Assess for exacerbation of medical condition, instruct patient/caregivers on signs and symptoms to report for early detection: Ordered Physical Therapist: Check all that apply Increase strength & endurance for safe mobility at home: Ordered To design/establish home maintenance program: Ordered Fall reduction therapy program for patient with history of frequent falls: Ordered Home safety evaluation and teaching/gait training including stair management (if applicable): Ordered Game Show Host: Assist with community resources: Ordered Assist with care home care planning: Ordered Encounter Date and Reason: I certify that a FTF encounter for this patient was performed on December 01, 2023 and that such encounter was related to the primary reason the patient requires home health services. The encounter was conducted in the following manner: * By me as the certifying physician, INTERACTIVE MEDIA SPECIALIST, PA or * By an inpatient physician, INTERACTIVE MEDIA SPECIALIST or PA during an inpatient stay who communicated findings to me, Certification And Authentication I certify that I composed the above information based on my clinical judgment relating to this patient's medical condition and, if applicable, clinical findings communicated to me by the NPP or inpatient physician who performed the FTF encounter. Name of Provider that will be monitoring home health services: Ginny Scherer
--- NOTE | 2023-12-01 10:45 | W.PM.DS.N ---
Date of service: 12/01/23 Time of Service: 10:46 DS: Diagnosis Discharge Diagnosis (1) Atrial fibrillation: Status: Chronic Asessment and Plan: -rate improved -continue diltiazem 30 mg tid, metoprolol 25 mg TID -continue warfarin, INR is 2.0, down from 2.2, increased to 3.5 mg PM 11/28 then monitor INR response. (2) Acute exacerbation of CHF (congestive heart failure): Asessment and Plan: -spironolactone added, was also on 40mg IV lasix BID during hospitalizaiton -will DC with spironolacone and restart home torsemide but increase from 20mg to 40mg daily (3) Chronic obstructive lung disease: Status: Chronic Asessment and Plan: -continue Spiriva and Symbicort, and DuoNEB (4) Hypertension: Asessment and Plan: -continue losartan (5) Chronic respiratory failure with hypoxia: Status: Acute Asessment and Plan: -continue home oxygen 2L NC Discharge Plan Disposition Patient Disposition: Home W/Home Health Services Condition: Good Discharge Details Reason For Visit: Afib w/RVR,CHF Admit Date/Time: 11/28/23 07:12 Admit Provider: Michael Ingram Attending Provider: Michael Ingram Primary Care Provider: Ginny Scherer V Hospital Course Hospital Course: Patient initially presented with progressive dyspnea over the last few days and was found to be in A-fib RVR as well as an acute exacerbation of congestive heart failure. She was diuresed, and obtained rate control with 30 mg diltiazem 3 times daily and 25-minute milligrams p.o. metoprolol 3 times daily, as well as improvement of her INR with increasing her warfarin to 3.5 mg at bedtime. Home Meds and New Rx's Prescriptions: New diltiazem HCl [Cardizem] 30 mg Tablet 30 mg PO TID Qty: 90 0RF spironolactone 25 mg Tablet 25 mg PO DAILY Qty: 90 0RF metoprolol tartrate 25 mg Tablet 25 mg PO TID Qty: 90 0RF Continued cholecalciferol (vitamin D3) 25 mcg (1,000 unit) capsule 50 mcg PO DAILY levothyroxine [Levoxyl] 100 MCG tablet 100 mcg PO DAILY losartan 50 mg tablet 50 mg PO BID magnesium oxide 400 mg (241.3 mg magnesium) Tablet 400 mg PO BID Qty: 60 0RF famotidine 20 mg tablet 20 mg PO DAILY Rx Instructions: 1 to 2 tablets daily pramipexole 0.125 mg tablet 0.125 - 0.25 mg PO HS PRN (Reason: Restless Leg(S)) Patient Comments: TAKE 1 TO 2 TABLETS BY MOUTH AT BEDTIME IF NEEDED FOR RESTLESS LEGS cyanocobalamin (vitamin B-12) [Vitamin B-12] 1,000 mcg tablet 1,000 mcg PO DAILY Patient Comments: TAKE 1 TABLET BY MOUTH ONCE DAILY bupropion HCl 100 mg tablet sustained-release 12 hr 100 mg PO BID Patient Comments: TAKE 1 TABLET BY MOUTH TWICE DAILY Trelegy Ellipta 100-62.5-25 mcg blister with device 1 inh INHALATION DAILY Changed torsemide 20 mg Tablet 40 mg PO DAILY Qty: 30 0RF Patient Comments: Pt's medication list states pt takes 1 tab every other day then 1/2 tab on other days. warfarin 2.5 MG tablet 3.5 mg PO DAILY Qty: 0 0RF Discontinued potassium chloride 10 mEq capsule, extended release 20 meq PO DAILY chlorthalidone 25 mg Tablet 25 mg PO DAILY Qty: 30 0RF bisoprolol fumarate 5 mg tablet 5 mg PO DAILY Rx Instructions: 1/4 tab daily per pt's provided medication list Discharge Instructions Instructions: Torsemide (By mouth), Heart Failure (DC), A-fib (Atrial Fibrillation) (DC) Activity:: Activity as Tolerated Equipment/Supplies:: No Equipment Needed Diet:: As Tolerated Discharge Orders Discharge Orders: Discharge Order (Routine); Ordered 12/01/23 Ordered By: Coy Cat DS: Summary Time Spent with Patient providing and/or coordinating discharge services: Greater than 30 minutes Status at Discharge Functional status at discharge: independent ambulation Overall status at discharge: patient is back to baseline Mental Status: mental status grossly normal Speech and Movement: speech and movement normal Mood: congruent mood Affect: normal affect Quality:SDOH Health Related Social Needs: Health related social needs risk of homeless, material hardship Exam Narrative Exam Narrative: Obese elderly female lying in the chair no acute distress, ANO x 4, heart regular rate and rhythm, 2 L nasal cannula in place with mild diffuse and expiratory wheezing heard throughout Psych Mental Status: mental status grossly normal Speech and Movement: speech and movement normal Mood: congruent mood Affect: normal affect DS: Data Vitals/I&O Vitals and I&O: Vital Signs Temperature 95.4 F L 12/01/23 08:30 Temperature Source Tympanic 12/01/23 08:30 Pulse 84 12/01/23 08:30 Pulse Rhythm Irregular 11/30/23 23:21 Pulse 92 H 11/30/23 22:00 Respiratory Rate 18 12/01/23 08:30 Respiratory Effort Normal, Non-Labored 12/01/23 08:50 Respiratory Depth Normal 12/01/23 08:50 Respiratory Pattern Normal 12/01/23 08:50 Blood Pressure 133/83 12/01/23 08:30 Blood Pressure Mean 76 11/30/23 20:51 Blood Pressure Position Sitting 11/29/23 08:40 Pulse Oximetry 95 12/01/23 08:30 Oxygen Delivery Method Nasal Cannula 12/01/23 08:30 Oxygen Flow Rate 2 12/01/23 08:30 Pain Level 0 12/01/23 08:30 Comment small cuff used on left lower arm 11/29/23 19:51 Comment on 2L via NC 11/29/23 19:25 Intake & Output 11/30/23 12/01/23 12/01/23 17:59 05:59 17:59 Intake Total 630 / 630 360 / 990 10 10 Output Total 975 / 975 200 / 1175 1000 / 1000 Balance -345 / -345 160 / -185 -990 / -990 Weight 223 lb 8.78 oz 222 lb 14.197 oz Intake: IV 10 10 / 10 Oral 610 / 610 350 / 960 Output: Urine 975 / 975 200 / 1175 Stool 1000 / 1000 Other: Urine Color Yellow Yellow Urine Appearance Clear Clear Clear Urine Odor None Comment Unmeasurable, moderate amount of urine in brief. Stool Size Small Small Large Stool Characteristics Soft Formed Soft Formed Brown Formed Brown Liquid Brown Voiding Methods Diaper Incontinent Data Completed and Pending Labs on day of discharge: Labs from last 24 hours 12/01/23 06:38 PT 22.1 H INR 2.4 H PFSH All Active Problems (Updated 12/01/23 @ 10:47 by Coy Cat MD) Chronic respiratory failure with hypoxia (Acute) Chronic obstructive lung disease (Chronic 07/11/13) CHF exacerbation (Acute) Osteoarthritis of left knee (Acute) Symptomatic bradycardia (Acute) Dizziness (Acute) Chronic kidney disease (Chronic) Heart failure with reduced ejection fraction (Acute) Sinus bradycardia (Acute) Leukocytosis (Acute) 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) Acute renal failure (ARF) (Acute) Shortness of breath (Acute) Fatigue (Acute) Pulmonary arterial hypertension (Acute) Falls frequently (Acute) Hypomagnesemia (Acute) CHF (congestive heart failure) (Chronic) Status post total right knee replacement (Acute 05/30/20) Abnormal breast finding (Acute 01/19/18) Adenoma of colon (Acute 01/19/18) Bruising (Acute 01/19/18) Chronic depression (Acute 01/19/18) Degenerative arthritis of right knee (Chronic 04/23/15) Disorder of vulva (Acute 01/19/18) Edema leg (Acute 01/19/18) Obesity (Acute 07/11/13) Osteoarthritis (Acute 07/11/13) Other forms of dyspnea (Acute 01/19/18) Overactive bladder (Acute 01/19/18) Primary osteoarthritis of both knees (Chronic 10/29/15) Synvisc injection: 11/04/2019; 05/03/2019 Shortness of breath (Acute 01/19/18) Tendinitis of left shoulder (Acute 01/07/16) Rectal hemorrhage (Acute) Acute on chronic diastolic heart failure (Acute) Chest pain (Acute) Atrial fibrillation (Chronic) SOB (shortness of breath) (Acute) CHF (congestive heart failure) (Chronic) Cough (Acute) Right rotator cuff tendonitis (Acute) Medical History Noncompliance with medication regimen Acute exacerbation of CHF (congestive heart failure) History of cardioversion Cataracts, bilateral Tendonitis surgery r arm Depression Osteoarthritis Morbid obesity H/O adenomatous polyp of colon Hypothyroidism (07/11/13) Essential hypertension (07/11/13) AF (paroxysmal atrial fibrillation) (01/19/18) Hypertension Surgical History History of carpal tunnel release r wrist H/O: hysterectomy H/O colonoscopy x2 Abdominal hysterectomy Family History Other Heart disease Social History Smoking/Tobacco Use Status: Former Tobacco Use Smoking risk assessment performed?: Yes Alcohol Intake: former Drug use: Never Substance use type: does not use Housing: house Current gender identity: female Do you feel safe at home: Yes Do you feel safe in your relationship?: Yes Additional Social history: Lives in [place] with Ed who is starting to have cognitive problems. They have financial issues Time Spent with Patient Time Spent with Patient: <45 minutes Time was spent: preparing to see the patient(eg.review tests), obtaining and/or reviewing separately otained hiistory, ordering medications,tests, procedures, referring, communicating with other health home health care physician, indepentently interpreting results, counseling the patient and care coordination
--- NOTE | 2023-12-01 10:50 | PDOC.CMDIS ---
Date of service: 12/01/23 Time of Service: 10:50 LACE Index Scoring Tool Questions: Length of Stay (in days): 3 Was the patient admitted via the E.D.?: Yes Comorbidities: Congestive Heart Failure, Chronic Pulmonary Disease and Liver or Renal Disease E.D. Visits: 2 Answers: Total Score: 13 Risk of Readmission: High Risk Care Management Discharge Plan Reason for Hospitalization: Afig,w/RVR,CHF Discharge Plan: Celeste will be discharged home, with resumption of RN services and the addition of PT. She will follow up with community providers and plan of care and transport with family. Patient/Family Education Needs: Review of discharge instructions, activity, limitations, follow up plan, discuss Ask Me Three Services Needed at Discharge: Home Health Care Services SDOH Health Related Social Needs: Health related social needs risk of homeless, material hardship Health related social needs: housing instability, housed, with risk of homelessness(Z59.811) and material hardship(utilities)(Z59.87)
--- NOTE | 2023-12-01 13:05 | W.NUTRFU ---
Date of service: 12/01/23 Time of Service: 10:50 Nutrition Note NOTE: brief visit with Celeste today to check on nutrition intake/status. Pt is 83yo admitted for chronic resp failure. Appetite and intake are fair to good. Ordered for heart healthy diet with normal consistencies. Offered heart healthy diet education to pt. Pt is at low nutrition risk during current admission. will continue to monitor for deleterious changes in nutrition related labs, her po intake. Time Spent in Nutritional Counseling and Treatment: 15 minutes
== END 2023-12-01 13:44 | disposition home health service (06) | DRG 308 ==
LOC: ER 07:28 → ICU 08:08 → MS 12-01 00:01
PROVIDERS: Family Medicine; Admitting Provider Internal Medicine; Emergency Provider Emergency Medicine Emergency Medical Services; PCP Family Medicine; Visit Provider Internal Medicine
DX: I48.19 Other persistent atrial fibrillation (principal); I50.43 Acute on chronic combined systolic (congestive) and diastolic (congestive) heart failure; J96.11 Chronic respiratory failure with hypoxia; I13.0 Hypertensive heart and chronic kidney disease with heart failure and stage 1 through stage 4 chronic kidney disease, or unspecified chronic kidney disease; J44.9 Chronic obstructive pulmonary disease, unspecified; Z99.81 Dependence on supplemental oxygen; M17.12 Unilateral primary osteoarthritis, left knee; N18.9 Chronic kidney disease, unspecified; I27.20 Pulmonary hypertension, unspecified; R29.6 Repeated falls; E83.42 Hypomagnesemia; Z96.651 Presence of right artificial knee joint; F32.9 Major depressive disorder, single episode, unspecified; E66.9 Obesity, unspecified; Z68.38 Body mass index [BMI] 38.0-38.9, adult; N32.81 Overactive bladder; E03.9 Hypothyroidism, unspecified; Z87.891 Personal history of nicotine dependence; Z79.01 Long term (current) use of anticoagulants
CPT/HCPCS: 00123; 36410; 36415; 51702; 80048; 80053; 82805; 93005; 94640; 96365; 96366; 96375; 97162; 99285; 71045; 83735; 83880; 84443; 84484; 85025; 85610; 93010; 94664; 94760; 99222; 99232; 99233; 99238; J1940; J7620

== ENCOUNTER 2023-12-08 20:12 | Outpatient (REF) | payer MEDICARE, SELFPAY ==
[2023-12-08 15:51] LABS: HGB 11.6 g/dL (11.2-15.7)
[2023-12-08 16:06] LABS: BUN 31 mg/dL (7-18); CREATININE 1.2 mg/dL (0.55-1.02); Calcium 9.4 mg/dL (8.5-10.1); Chloride 103 mmol/L (98-107); Estimated GFR 44.91 (mL/min/1.73m2); Glucose 101 mg/dL (74-106); Magnesium 2.1 mg/dL (1.8-2.4); Potassium 4.4 mmol/L (3.5-5.1); Sodium 140 mmol/L (136-145)
== END 2023-12-08 20:13 | disposition home or self-care (01) ==
LOC: NCHCN 20:12
PROVIDERS: PCP Family Medicine; Referring Provider Family Medicine; Visit Provider Family Medicine
DX: I10 Essential (primary) hypertension (principal)
CPT/HCPCS: 80048; 83735; 85014; 85018

== ENCOUNTER 2023-12-22 04:54 | Outpatient (CLI) | payer MEDICARE, SELFPAY ==
[2023-12-22] MEDS: Levalbuterol HFA 15 GM INH 4 PUFF IH (14:42)
[2023-12-22] MEDS: Inhaler, Assist Device 1 EACH MC (14:43)
--- NOTE | 2023-12-22 15:04 | W.PFT ---
Date of service: 12/22/23 Time of Service: 12:55 Pulmonary Function Test Result Indications: COPD Interpretation Spirometry: There is moderate airflow limitation. No bronchodilator response Lung Volumes: Normal lung volumes Diffusion Capacity: Decreased diffusion Airway Pressure: Increased airways resistance Impression Moderate airflow obstruction with decreased diffusion. Clinical Correlation therefore is recommended.
== END 2023-12-22 04:55 | disposition home or self-care (01) ==
LOC: RT 04:54
PROVIDERS: PCP Family Medicine; Visit Provider Physician Assistant Surgical
DX: J44.9 Chronic obstructive pulmonary disease, unspecified (principal)
CPT/HCPCS: 94060; 94726; 94729

== ENCOUNTER 2024-01-05 14:12 | Outpatient (REF) | payer MEDICARE, SELFPAY ==
[2024-01-05 15:49] LABS: Anion Gap 5.6 mmol/L (3-11); BUN 23 mg/dL (7-18); CO2 30.4 mmol/L (21.0-32.0); CREATININE 1.2 mg/dL (0.55-1.02); Calcium 9.3 mg/dL (8.5-10.1); Chloride 103 mmol/L (98-107); Estimated GFR 44.91 (mL/min/1.73m2); Glucose 104 mg/dL (74-106); NT-proBNP 1306 pg/mL (<300); Potassium 4.5 mmol/L (3.5-5.1); Sodium 139 mmol/L (136-145)
== END 2024-01-05 14:13 | disposition home or self-care (01) ==
LOC: NCHCN 14:12
PROVIDERS: PCP Family Medicine; Visit Provider Family Medicine
DX: I50.9 Heart failure, unspecified (principal)
CPT/HCPCS: 80048; 83880

== ENCOUNTER 2024-02-05 14:04 | Outpatient (REF) | payer MEDICARE, SELFPAY ==
[2024-02-05 16:24] LABS: Anion Gap 7.6 mmol/L (3-11); BUN 25 mg/dL (7-18); CO2 27.4 mmol/L (21.0-32.0); CREATININE 1.2 mg/dL (0.55-1.02); Chloride 107 mmol/L (98-107); Estimated GFR 44.91 (mL/min/1.73m2); Glucose 143 mg/dL (74-106); Potassium 4.4 mmol/L (3.5-5.1); Sodium 142 mmol/L (136-145)
== END 2024-02-05 14:05 | disposition home or self-care (01) ==
LOC: NCHCN 14:04
PROVIDERS: PCP Family Medicine; Visit Provider Family Medicine
DX: I10 Essential (primary) hypertension (principal)
CPT/HCPCS: 80048

== ENCOUNTER 2024-02-09 17:47 | Emergency (ER) | payer MEDICARE, SELFPAY ==
[2024-02-09 17:49] VITALS: BP 156/97; PULSE 100; RESP 18; O2SAT 95
[2024-02-09 18:29] VITALS: BP 156/97; PULSE 100; RESP 18; TEMP 36.4; O2SAT 95
--- NOTE | 2024-02-09 18:30 | DI.RAD_ITS ---
Exam(s) XR FINGER RT RING EXAM: XR FINGER RT RING CLINICAL HISTORY: paronychia. TECHNIQUE: 2D digital imaging was performed. Three views. COMPARISON: No exams were available for comparison FINDINGS: BONES: No acute fracture is present. No bony destructive lesion is seen. JOINTS: No dislocation present. Severe degenerative changes noted at the 1st carpal metacarpal joint . SOFT TISSUE: Marked swelling of the ring finger. No foreign body or gas collection. 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 DATA REPOSITORY: RADIATION DOSE DELIVERED:
[2024-02-09 19:08] LABS: Abs Immature Grans 0.01 10^3/uL (0.0-0.06); Absolute Basophil Count 0.05 10^3/uL (0.0-0.2); Absolute Eosinophil Count 0.18 10^3/uL (0.0-0.7); Absolute Lymphocyte Count 1.15 10^3/uL (1.2-3.4); Absolute Monocyte Count 0.57 10^3/uL (0.1-0.8); Basophils % 0.7 %; Eosinophils % 2.6 %; HCT 39.4 % (36.0-46.0); HGB 12.3 g/dL (11.2-15.7); Immature Grans % 0.1 %; Lymphocytes % 16.8 %; MCH 33.1 pg (27.0-33.0); MCHC 31.2 % (32.0-36.0); MCV 106 fL (80-95); MPV 9.5 fL (8.0-11.0); Monocytes % 8.3 %; Neutrophils % 71.5 %; Platelet Count 237 10^3/uL (130-400); RBC 3.72 10^6/uL (3.93-5.22); RDW 14.7 % (11.7-14.6); WBC 6.86 10^3/uL (4.4-10.8)
[2024-02-09 19:19] LABS: INR 1.5 (0.9-1.1); Prothrombin Time 14.4 sec (9.1-11.1)
[2024-02-09 19:23] LABS: ESR 55 mm/hr (0-30)
[2024-02-09 19:25] LABS: ALT 20 U/L (14-59); AST 19 U/L (15-37); Albumin 2.8 g/dL (3.4-5.0); Alkaline Phosphatase 118 U/L (46-116); Anion Gap 8.3 mmol/L (3-11); BUN 20 mg/dL (7-18); Bilirubin, Total 0.4 mg/dL (0.2-1.0); C-Reactive Protein 2.95 mg/dL (<or=0.5); CO2 26.7 mmol/L (21.0-32.0); CREATININE 1.3 mg/dL (0.55-1.02); Calcium 8.8 mg/dL (8.5-10.1); Chloride 106 mmol/L (98-107); Glucose 104 mg/dL (74-106); Potassium 4.4 mmol/L (3.5-5.1); Sodium 141 mmol/L (136-145); Total Protein 7.4 g/dL (6.4-8.2)
[2024-02-09 19:42] LABS: Diff Comment RBC Morph Reviewed; Macrocytosis 1+
--- NOTE | 2024-02-09 20:28 | DI.VRAD_ITS ---
PROCEDURE INFORMATION: Exam: XR Right Finger(s) Exam date and time: 02/09/2024 7:48 PM Age: 83 years old Clinical indication: Swelling; Fingers; Right TECHNIQUE: Imaging protocol: Radiologic exam of the right fingers. Views: Minimum 2 views. COMPARISON: No relevant prior studies available. FINDINGS: Bones/joints: Osseous structures appear osteopenic. No discrete or displaced fracture. No joint dislocation. There are moderate degenerative changes of the right 1st CMC joint with marginal osteophytosis and degenerative joint space narrowing. Mild scattered degenerative changes in the interphalangeal joint suggestive of changes of osteoarthritis. Soft tissues: Soft tissue edema of the proximal 4th finger. Punctate linear 1-2 mm hyperdensity along the medial aspect of the proximal 3rd finger soft tissues is of uncertain etiology. Metallic external artifact noted encircling the proximal 5th phalanx. 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 IMPRESSION: No acute fracture or dislocation. Dictated and Authenticated by: Elliott Humphreys MD. Ordering:PRIYANKA Garcia MD
--- NOTE | 2024-02-09 22:43 | ED.GENADUL_ITS ---
Discharge Plan Disposition Patient Disposition: Home Condition: Stable Discharge Details Clinical Impression: Paronychia of finger, Cellulitis Primary Care Provider: Ginny Scherer V ED Provider: Rdaha Funes Home Meds and New Rx's Prescriptions: New doxycycline hyclate 100 mg capsule 100 mg PO BID Qty: 20 0RF Continued cholecalciferol (vitamin D3) 25 mcg (1,000 unit) capsule 50 mcg PO DAILY levothyroxine [Levoxyl] 100 MCG tablet 100 mcg PO DAILY losartan 50 mg tablet 50 mg PO BID latanoprost 0.005 % drops 1 drp ophthalmic (eye) DAILY levalbuterol tartrate 45 mcg/actuation HFA aerosol inhaler 1 puff inhalation Q6H nystatin 100,000 unit/gram powder 1 applic topical DAILY magnesium oxide 400 mg (241.3 mg magnesium) Tablet 400 mg PO BID Qty: 60 0RF famotidine 20 mg tablet 20 mg PO DAILY Rx Instructions: 1 to 2 tablets daily diltiazem HCl [Cardizem] 30 mg Tablet 30 mg PO TID Qty: 90 0RF spironolactone 25 mg Tablet 25 mg PO DAILY Qty: 90 0RF metoprolol tartrate 25 mg Tablet 25 mg PO TID Qty: 90 0RF torsemide 20 mg Tablet 40 mg PO DAILY Qty: 30 0RF Patient Comments: Pt's medication list states pt takes 1 tab every other day then 1/2 tab on other days. warfarin 2.5 MG tablet 3.5 mg PO DAILY Qty: 0 0RF pramipexole 0.125 mg tablet 0.125 - 0.25 mg PO HS PRN (Reason: Restless Leg(S)) Patient Comments: TAKE 1 TO 2 TABLETS BY MOUTH AT BEDTIME IF NEEDED FOR RESTLESS LEGS cyanocobalamin (vitamin B-12) [Vitamin B-12] 1,000 mcg tablet 1,000 mcg PO DAILY Patient Comments: TAKE 1 TABLET BY MOUTH ONCE DAILY bupropion HCl 100 mg tablet sustained-release 12 hr 100 mg PO BID Patient Comments: TAKE 1 TABLET BY MOUTH TWICE DAILY Trelegy Ellipta 100-62.5-25 mcg blister with device 1 inh INHALATION DAILY cephalexin 500 mg capsule 500 mg PO TID Patient Comments: TAKE 1 CAPSULE BY MOUTH THREE TIMES DAILY FOR 7 DAYS Discharge Instructions Instructions: Paronychia (ED), Cellulitis (ED) Additional Instructions: Take antibiotic as prescribed, yogurt daily while on antibiotic, Tylenol as needed for pain, elevate is much as possible Recheck in 24 to 48 hours, return earlier should you have fever, spreading redness, or with any new or worsening complaints You will need a recheck of your Coumadin level in 3 to 5 days as the doxycycline can cause your Coumadin level to increase Referrals: Ginny Scherer MD [Primary Care Provider] - 2 days HPI General Date/Time Provider Initiated Documentation: 02/09/24 18:05 . HPI Narrative: This 83-year-old female presents with right fourth digit paronychia with cellulitis. Patient has a complex history of CHF, chronic anticoagulation on Coumadin, CKD, hypomagnesemia. Patient states that she pulled a hangnail on and started with the redness and swelling on Thursday. Saw her doctor and started antibiotics on Thursday evening. Has been taking Keflex 500 mg 3 times a day since that time. Patient denies fever but states the redness is slightly worse today. Denies systemic signs of illness. Related Data Home Medications Medication Instructions Recorded Confirmed Levoxyl 100 mcg tablet 100 mcg PO DAILY 07/11/13 02/09/24 (levothyroxine) cyanocobalamin (vitamin B-12) 1,000 mcg PO DAILY 05/30/20 02/09/24 1,000 mcg tablet (Vitamin B-12) pramipexole 0.125 mg tablet 0.125 - 0.25 mg PO HS PRN Restless 05/30/20 02/09/24 Leg(S) bupropion HCl 100 mg tablet,12 hr 100 mg PO BID 10/24/21 02/09/24 sustained-release magnesium oxide 400 mg (241.3 mg 400 mg PO BID #60 tabs 06/03/22 02/09/24 magnesium) tablet cholecalciferol (vitamin D3) 25 50 mcg PO DAILY 06/04/22 02/09/24 mcg (1,000 unit) capsule fluticasone fur. 100 mcg-umeclid 1 inh inhalation DAILY 08/12/22 02/09/24 62.5 mcg-vilant 25 mcg inhalat.powder (Trelegy Ellipta) losartan 50 mg tablet 50 mg PO BID 04/15/23 02/09/24 famotidine 20 mg tablet 20 mg PO DAILY 11/28/23 02/09/24 diltiazem HCl 30 mg tablet 30 mg PO TID #90 tabs 12/01/23 02/09/24 (Cardizem) metoprolol tartrate 25 mg tablet 25 mg PO TID #90 tabs 12/01/23 02/09/24 spironolactone 25 mg tablet 25 mg PO DAILY #90 tabs 12/01/23 02/09/24 torsemide 20 mg tablet 40 mg (2 x 20 mg) PO DAILY #30 tabs 12/01/23 02/09/24 warfarin 2.5 mg tablet 3.5 mg (1.4 x 2.5 mg) PO DAILY #0 12/01/23 02/09/24 tab-caps latanoprost 0.005 % eye drops 1 drp ophthalmic (eye) DAILY 12/28/23 02/09/24 levalbuterol tartrate 45 1 puff inhalation Q6H 12/28/23 02/09/24 mcg/actuation aerosol inhaler nystatin 100,000 unit/gram topical 1 applic topical DAILY 12/28/23 02/09/24 powder cephalexin 500 mg capsule 500 mg PO TID 02/09/24 02/09/24 doxycycline hyclate 100 mg capsule 100 mg PO BID #20 caps 02/09/24 Previous Rx's Medication Instructions Recorded magnesium oxide 400 mg (241.3 mg 400 mg PO BID #60 tabs 06/03/22 magnesium) tablet diltiazem HCl 30 mg tablet 30 mg PO TID #90 tabs 12/01/23 (Cardizem) metoprolol tartrate 25 mg tablet 25 mg PO TID #90 tabs 12/01/23 spironolactone 25 mg tablet 25 mg PO DAILY #90 tabs 12/01/23 torsemide 20 mg tablet 40 mg (2 x 20 mg) PO DAILY #30 tabs 12/01/23 warfarin 2.5 mg tablet 3.5 mg (1.4 x 2.5 mg) PO DAILY #0 12/01/23 tab-caps doxycycline hyclate 100 mg capsule 100 mg PO BID #20 caps 02/09/24 Allergies Allergy/AdvReac Type Severity Reaction Status Date / Time adhesive Allergy Severe skin rash, Verified 11/28/23 07:14 blisters lisinopril Allergy Intermediate Nausea Verified 11/28/23 07:14 amoxicillin [Amoxicillin] Allergy Mild TINGLING Verified 11/28/23 07:14 oxybutynin Allergy Unknown PT CAN'T Verified 11/28/23 07:14 REMEMBER adhesive tape Allergy Hives Verified 11/28/23 07:14 General Stated Complaint: Cellulitis CECILIA: 3 Exam Narrative Exam Narrative: Alert and oriented 83-year-old female who presents with a paronychia with erythema extending down on right fourth digit, ring in place with significant edema around the ring. Brisk cap refill distally, mild swelling to the hand, flexion and extension intact without lymphangitis. No respiratory distress cardiac rate within normal limits Course Vital Signs Vital signs: Vital Signs Pulse 100 H 02/09/24 17:49 Respiratory Rate 18 02/09/24 17:49 Blood Pressure 156/97 H 02/09/24 17:49 Pulse Oximetry 95 02/09/24 17:49 Temperature 36.4 C L 02/09/24 18:29 Temperature Source Oral 02/09/24 18:29 Pulse 100 H 02/09/24 18:29 Respiratory Rate 18 02/09/24 18:29 Respiratory Effort Normal 02/09/24 17:53 Blood Pressure 156/97 H 02/09/24 18:29 Pulse Oximetry 95 02/09/24 18:29 Oxygen Delivery Method Room Air 02/09/24 18:29 Oxygen Flow Rate 0 02/09/24 18:29 Lab/Test Results Lab/Test Results: 02/09/24 19:57 Finger - Right Third Digit Wound Culture - Pending 02/09/24 19:57 Finger - Right Third Digit Gram Stain - Final Laboratory Tests Range/Units 02/09/24 18:54 WBC (4.4-10.8) 10^3/uL 6.86 RBC (3.93-5.22) 10^6/uL 3.72 L Hgb (11.2-15.7) g/dL 12.3 Hct (36.0-46.0) % 39.4 MCV (80-95) fL 106 H MCH (27.0-33.0) pg 33.1 H MCHC (32.0-36.0) % 31.2 L RDW (11.7-14.6) % 14.7 H Plt Count (130-400) 10^3/uL 237 MPV (8.0-11.0) fL 9.5 Immature Gran % % 0.1 Neutrophils % % 71.5 Lymphocytes % % 16.8 Monocytes % % 8.3 Eosinophils % % 2.6 Basophils % % 0.7 Nucleated RBC % (0.0-0.3) % 0.0 Absolute Neutrophils (1.2-6.7) 10^3/uL 4.90 Absolute Lymphocytes (1.2-3.4) 10^3/uL 1.15 L Absolute Monocytes (0.1-0.8) 10^3/uL 0.57 Absolute Eosinophils (0.0-0.7) 10^3/uL 0.18 Absolute Basophils (0.0-0.2) 10^3/uL 0.05 RBC Morphology See Below Macrocytosis 1+ ESR (0-30) mm/hr 55 H PT (9.1-11.1) sec 14.4 H INR (0.9-1.1) 1.5 H Sodium (136-145) mmol/L 141 Potassium (3.5-5.1) mmol/L 4.4 Chloride (98-107) mmol/L 106 Carbon Dioxide (21.0-32.0) mmol/L 26.7 Anion Gap (3-11) mmol/L 8.3 BUN (7-18) mg/dL 20 H Creatinine (0.55-1.02) mg/dL 1.3 H Est GFR (CKD-EPI 2020) (mL/min/1.73m2) 40.80 Glucose (74-106) mg/dL 104 Calcium (8.5-10.1) mg/dL 8.8 Total Bilirubin (0.2-1.0) mg/dL 0.4 AST (15-37) U/L 19 ALT (14-59) U/L 20 Alkaline Phosphatase (46-116) U/L 118 H C-Reactive Protein (<or=0.5) mg/dL 2.95 H Total Protein (6.4-8.2) g/dL 7.4 Albumin (3.4-5.0) g/dL 2.8 L Medical Decision Making 83-year-old female presenting alert and oriented with cellulitis and paronychia to right fourth digit, ring in place with marked swelling around ring, ring was immediately removed with a ring cutter by nursing staff and I suspect antibiotics will be more effective at this point. Keflex was discontinued and doxycycline initiated 3 times daily. Patient has been taking antibiotics for approximately 24 hours. She is exhibiting no signs of systemic illness chronically ill. She is subtherapeutic on her INR and encouraged to have this rechecked although she is starting on antibiotics and this may cause her INR to increase, she is aware she will need recheck in several days. Repeat heart rate 94. Recheck in 48 hours recommended. Wound was cultured, culture pending at this time. No leukocytosis, sed rate and CRP mildly elevated. Patient is aware that should she not have therapeutic improvement in 48 hours she may need IV antibiotics, she will return at that time for reassessment or follow-up with primary care physician in the outpatient setting. Creatinine and BUN are baseline for patient when compared to prior Quality:SDOH Health Related Social Needs: Health related social needs risk of homeless, material hardship PFSH All Active Problems (Updated 02/09/24 @ 19:53 by ABDULAZIZ Myrick) Cellulitis (Acute) Paronychia of finger (Acute) Pulmonary edema (Acute) mild on POCUS 12/10/23 Chronic respiratory failure with hypoxia (Acute) Chronic obstructive lung disease (Chronic 07/11/13) CHF exacerbation (Acute) Osteoarthritis of left knee (Acute) Symptomatic bradycardia (Acute) Dizziness (Acute) Chronic kidney disease (Chronic) Heart failure with reduced ejection fraction (Acute) Sinus bradycardia (Acute) Leukocytosis (Acute) 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) Acute renal failure (ARF) (Acute) Shortness of breath (Acute) Fatigue (Acute) Pulmonary arterial hypertension (Acute) Falls frequently (Acute) Hypomagnesemia (Acute) CHF (congestive heart failure) (Chronic) Status post total right knee replacement (Acute 05/30/20) Abnormal breast finding (Acute 01/19/18) Adenoma of colon (Acute 01/19/18) Bruising (Acute 01/19/18) Chronic depression (Acute 01/19/18) Degenerative arthritis of right knee (Chronic 04/23/15) Disorder of vulva (Acute 01/19/18) Edema leg (Acute 01/19/18) Obesity (Acute 07/11/13) Osteoarthritis (Acute 07/11/13) Other forms of dyspnea (Acute 01/19/18) Overactive bladder (Acute 01/19/18) Primary osteoarthritis of both knees (Chronic 10/29/15) Synvisc injection: 11/04/2019; 05/03/2019 Shortness of breath (Acute 01/19/18) Tendinitis of left shoulder (Acute 01/07/16) Rectal hemorrhage (Acute) Acute on chronic diastolic heart failure (Acute) Chest pain (Acute) Atrial fibrillation (Chronic) SOB (shortness of breath) (Acute) CHF (congestive heart failure) (Chronic) Cough (Acute) Right rotator cuff tendonitis (Acute) Medical History Noncompliance with medication regimen Acute exacerbation of CHF (congestive heart failure) History of cardioversion Cataracts, bilateral Tendonitis surgery r arm Depression Osteoarthritis Morbid obesity H/O adenomatous polyp of colon Hypothyroidism (07/11/13) Essential hypertension (07/11/13) AF (paroxysmal atrial fibrillation) (01/19/18) Hypertension Surgical History History of carpal tunnel release r wrist H/O: hysterectomy H/O colonoscopy x2 Abdominal hysterectomy Social History Smoking/Tobacco Use Status: Former Tobacco Use Smoking risk assessment performed?: Yes Alcohol Intake: former Drug use: Never Substance use type: does not use Housing: house Current gender identity: female Do you feel safe at home: Yes Do you feel safe in your relationship?: Yes Additional Social history: Lives in [place] with Ed who is starting to have cognitive problems. They have financial issues
--- NOTE | 2024-02-11 08:56 | W.ED.FU ---
Date of service: 02/11/24 Time of Service: 08:56 Follow Up Plan: This patient had a positive wound culture growing MRSA on my shift secondary to a paronychia diagnosed 2 nights ago. Patient is on appropriate 10-day course of doxycycline. Will continue to monitor as an outpatient.
== END 2024-02-09 20:06 | disposition home or self-care (01) ==
PROVIDERS: Emergency Provider Physician Assistant; PCP Family Medicine
DX: L03.011 Cellulitis of right finger (principal); I11.0 Hypertensive heart disease with heart failure; I50.9 Heart failure, unspecified; I48.0 Paroxysmal atrial fibrillation; E03.9 Hypothyroidism, unspecified; Z79.01 Long term (current) use of anticoagulants; Z87.891 Personal history of nicotine dependence
CPT/HCPCS: 36415; 80053; 85652; 87077; 99284; 73140; 85025; 85610; 86140; 87070; 87186; 87205

== ENCOUNTER 2024-02-12 12:58 | Outpatient (CLI) | payer MEDICARE, SELFPAY | END 2024-02-12 12:59 | disposition home or self-care (01) | LOC: DI.CARD 12:58 | PROVIDERS: PCP Family Medicine; Visit Provider Internal Medicine Cardiovascular Disease | CPT/HCPCS: 93010 ==

== ENCOUNTER 2024-04-01 15:19 | Outpatient (REF) | payer MEDICARE, SELFPAY ==
[2024-04-01 19:22] LABS: ESR 58 mm/hr (0-30)
[2024-04-01 19:52] LABS: BUN 31 mg/dL (7-18); CREATININE 1.6 mg/dL (0.55-1.02); Calcium 9.2 mg/dL (8.5-10.1); Chloride 104 mmol/L (98-107); Ferritin 86 ng/mL (8-252); Glucose 103 mg/dL (74-106); Potassium 4.5 mmol/L (3.5-5.1); Sodium 140 mmol/L (136-145); TSH (W/Ref FT4) 1.14 uIU/mL (0.36-3.74)
[2024-04-01 19:53] LABS: Vitamin B12 > 2000 pg/mL (193-986)
[2024-04-01 20:07] LABS: C-Reactive Protein 1.98 mg/dL (<or=0.5)
== END 2024-04-01 15:20 | disposition home or self-care (01) ==
LOC: NCHCN 15:19
PROVIDERS: PCP Family Medicine; Visit Provider Family Medicine
DX: I50.9 Heart failure, unspecified (principal); E03.9 Hypothyroidism, unspecified
CPT/HCPCS: 80048; 85652; 82607; 82728; 84443; 86140